=== PATIENT | female | born 1935 | race Caucasian/White ===

== ENCOUNTER → 2016-10-19 | Outpatient (CLI) | payer BC ==
[~2016-10-19] MED LIST: ACET-1101 PO; LEVO88TA22 PO; LOSA50TA6 PO; MULTTAB58 PO; NIFE30TA2 PO; RALO60TA30 PO; [UNRECOGNIZED DRUG - OTHER] PO
--- NOTE | 2016-10-19 12:46 | MAMMOGRAPHY REPORT ---
BILATERAL DIGITAL SCREENING MAMMOGRAM WITH CAD: 10/19/2016 CLINICAL HISTORY: Routine screening. Patient has no complaints. TECHNIQUE: Bilateral CC and MLO views were obtained. Current study was also evaluated with a Comput er Aided Detection (CAD) system. COMPARISON: Comparison is made to exams dated: 10/19/2015 mammogram, 10/08/2014 mammogram, 10/09/2013 ul trasound, 10/04/2013 mammogram, 10/03/2012 mammogram, and 09/28/2011 mammogram - [facility]. BREAST COMPOSITION: There are scattered areas of fibroglandular density in both breasts. FINDINGS: A linear scar marker overlies the 12:00 anterior right breast. There is asymmetry of the size of the breasts and evidence of prior surgery within the right breast. Mild vascular calcificat ions and punctate microcalcifications are stable bilaterally. No new suspicious mass, architectural distortion or cluster of microcalcifications is seen. IMPRESSION: ACR BI-RADS CATEGORY 1: NEGATIVE There is no mammographic evidence of malignancy. A 1 year screening mammogram is recommended. The p atient will receive written notification of the results. Approximately 10% of breast cancers are not detected with mammography. A negative mammographic repor t should not delay biopsy if a clinically suggestive mass is present. Myrna Roberson M.D. ay/:10/19/2016 11:16:38 Senior Product Development Engineer: Merari LOPEZ(Gomez)([place]), [facility] letter sent: Normal 1/2 BI-RADS Code: ACR BI-RADS Category 1: Negative
== END | disposition home or self-care (01) ==
LOC: C.MAMM 09:28
PROVIDERS: ATTEND Family Medicine
DX: Z12.31 Encounter for screening mammogram for malignant neoplasm of breast (principal)

== ENCOUNTER → 2016-12-21 | Outpatient (CLI) | payer BC | END | disposition home or self-care (01) | LOC: C.LABPVFM 11:52 | PROVIDERS: ATTEND Family Medicine | DX: R39.89 Other symptoms and signs involving the genitourinary system (principal) ==

== ENCOUNTER → 2017-03-15 | Outpatient (CLI) | payer BC ==
[~2017-03-15] MED LIST changes: +RALO60TA12 PO; -RALO60TA30 PO
[2017-03-15 18:02] LABS: BLOOD UREA NITROGEN 15 mg/dl (7-18)
== END | disposition home or self-care (01) ==
LOC: C.LABPVFM 14:13
PROVIDERS: ATTEND Psychiatry & Neurology Neurology
DX: Z00.00 Encounter for general adult medical examination without abnormal findings (principal)

== ENCOUNTER → 2017-03-22 | Outpatient (CLI) | payer BC ==
[~2017-03-22] MED LIST changes: +GADAVIST IV PRN
--- NOTE | 2017-03-22 10:36 | DIAGNOSTIC IMAGING REPORT ---
BRAIN COMBO FOR TRIGEMINAL CLINICAL HISTORY: 82 years-old Female presenting with trigeminal neuralgia, right-sided facial pain in the cheek for over one year, resistant to medications, history of dry eyes, no history of cancer or trauma. TECHNIQUE: Multisequence, multiplanar MR imaging of the brain was performed before and after the administration of intravenous contrast. IV contrast: 5.4 mL of Gadavist. COMPARISON: MRA from 11/17/2014. FINDINGS: Meckel's cave normal bilaterally. No mass lesion along the course of the trigeminal nerves. Normal internal auditory canals. Normal inner ear year structures. Proportional ventricular and sulcal prominence, likely age-related parenchymal volume loss. Periventricular and subcortical white matter T2/FLAIR hyperintensity, nonspecific but likely indicative of chronic small vessel ischemic change. No mass effect or midline shift. No restricted diffusion to suggest acute ischemia. No hemorrhage. No extra-axial fluid collection. T2 skull base flow voids preserved. No abnormal parenchymal enhancement. Intracranial vasculature grossly patent. Bone marrow signal intensity within the calvarium within normal limits. No asymmetry of the muscles of the face. IMPRESSION: No acute intracranial pathology. No abnormal enhancement. Normal trigeminal nerves. Electronically signed by: Clement Jacobo M.D. 03/22/2017 10:35 AM Dictated Date/Time: 03/22/2017 10:25 AM
== END | disposition home or self-care (01) ==
LOC: C.MRI 08:13
PROVIDERS: ATTEND Psychiatry & Neurology Neurology
DX: G50.0 Trigeminal neuralgia (principal)

== ENCOUNTER 2017-06-19 09:16 | Emergency (ER) | payer BC ==
[~2017-06-19] VITALS: Ht 152.4 cm; Wt 54.1 kg
[~2017-06-19 09:16] MED LIST changes: -GADAVIST IV PRN; -RALO60TA12 PO; +RALO60TA30 PO
[2017-06-19 09:17] VITALS: TEMP 36.9; Ht 152.4 cm; Wt 54.1 kg
[2017-06-19] MEDS ORDERED: ACETAMINOPHEN 500 MG TAB PO STA (09:40)
[2017-06-19] MEDS ORDERED: SODIUM CHLORIDE 0.9% 500ML 500 ML IV STA (09:40)
[2017-06-19] MEDS ORDERED: LIDOCAINE/EPINEPHRINE 1% 20 ML VIAL INFIL ONE (09:45)
[2017-06-19] MEDS ORDERED: DIPHTHERIA/TETANUS/PERTUSSIS 0.5 ML SYR/VIAL IM. ONE (09:45)
--- NOTE | 2017-06-19 09:52 | EMERGENCY ROOM VISIT NOTE ---
History Report prepared by Bartolome: Anthony Marcano Under the Supervision of: Dr. Bryan Andre M.D. First contact with patient: 09:35 Chief Complaint: FALL Stated Complaint: FALL TODAY History of Present Illness The patient is a 82 year old female who presents to the Emergency Room with complaints of a fall that occurred this morning, prior to arrival. Earlier today , the patient was walking down a couple of steps and stepped onto a landing. She opened the door to walk down more steps and the next thing she remembers is getting up off of the floor at the bottom of the steps. She states that she did not lose consciousness, but does not remember the fall. As soon as she got up, she noticed that her head was bleeding so she cleaned up the area before she told anyone about it. She is experiencing pain on the right side of her body, from her right shoulder down to her right foot. More specifically, her pain is in her right shoulder, back, elbow, wrist, and ankle. Her pain is exacerbated with movement. She denies any fevers, chest pain, shortness of breath, nausea, vomiting, diarrhea, abdominal pain, abnormal urinary symptoms, or dizziness. She notes that she has a headache. She takes a Baby Aspirin daily, but no other blood thinners. She is unsure if her Tetanus immunization is up to date. 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 Review of Systems See HPI for pertinent positives and negatives. A total of ten systems were reviewed and were otherwise negative. Past Medical & Surgical Medical Problems: (1) Sjogren's syndrome Family History Cancer Diabetes mellitus Heart disease Hypertension Social History Smoking Status: Never Smoker Smokeless Tobacco Use: No Alcohol Use: none Drug Use: none Marital Status: Housing Status: lives with significant other Occupation Status: retired Current/Historical Medications Scheduled Aspirin (Aspirin Ec), 81 MG PO DAILY Cholecalciferol (Vitamin D), 1,000 UNITS PO DAILY Levothyroxine Sodium (Synthroid), 88 MCG PO DAILY Losartan Potassium (Cozaar), 50 MG PO DAILY Multiple Vitamin (Multivitamin), 1 TAB PO DAILY Nifedipine (Procardia Xl Ext Rel), 30 MG PO DAILY Ocuvite Preservision (Ocuvite Preservision), 1 TAB PO DAILY [place]-3 Fatty Acids (Fish Oil), 1 CAP PO DAILY Allergies Coded Allergies: Sulfa Drugs (Verified Allergy, Mild, 06/19/17) Adhesives (Verified Allergy, Unknown, rash, 06/19/17) Physical Exam Vital Signs Date Time Temp Pulse Resp B/P (MAP) Pulse Ox O2 Delivery O2 Flow Rate FiO2 06/19/17 14:43 95 142/67 99 06/19/17 12:18 86 18 135/85 99 Room Air 06/19/17 11:03 98 Room Air 06/19/17 09:17 36.9 103 17 197/83 97 Room Air Physical Exam GENERAL: Awake, alert, well appearing, no distress HEAD: Normocephalic. There is a 10 cm linear laceration to the right temporal scalp. There is a 3 cm right frontal hematoma as well. No samuels sign. No raccoon eyes. EYES: Normal conjunctiva. PERRL. EARS: External ears normal. Right TM normal. Left TM normal. NOSE: Atraumatic OROPHARYNX: Lips, tongue, and mucosa unremarkable. No erythema or exudate. NECK: Supple. No nuchal rigidity. No tracheal deviation or JVD. No posterior midline tenderness. No step offs noted. RESPIRATORY: CTA bilaterally CARDIAC: Regular rate, normal rhythm. ABDOMEN: Inspection reveals no abnormalities. Soft, non distended. No tenderness to palpation. No hernias. BACK: No midline step offs or tenderness to palpation. Unremarkable. PELVIS: Stable to rock. SKIN: Normal. LYMPH: No adenopathy. MUSCULOSKELETAL: There is a 10 cm area of ecchymosis to the right shoulder. No gross deformities. Tenderness to the lateral humeral head and scapula on the right. Pain with ROM above 90 degrees. Mild tenderness to the lateral aspect of the right elbow and radial wrist. Distal PM's intact. Mild contusion to the dorsum of the right foot. Pain with palpation to the area. PM's intact. NEURO: GCS 15. Normal sensorium. No sensory or motor deficits noted. Medical Decision & Procedures ER Provider Diagnostic Interpretation: Radiology results as stated below per my review and radiologist interpretation: R WRIST MIN 3 VIEWS ROUTINE CLINICAL HISTORY: fall pain trauma. Pain. COMPARISON: None. DISCUSSION: Generalized degenerative change throughout the wrist. No well-defined fracture or dislocation. Degenerative change of the articular services throughout. No significant soft tissue calcification. Mild reactive osteophytic change. There is no evidence for soft tissue swelling. IMPRESSION: Moderate degenerative change. No acute bony abnormality. The above report was generated using voice recognition software. It may contain grammatical, syntax or spelling errors. Electronically signed by: Derek Cross M.D. 06/19/2017 12:13 PM Dictated Date/Time: 06/19/2017 12:12 PM R FOOT MIN 3 VIEWS ROUTINE, R SCAPULA, R SHOULDER MIN 2 VIEWS ROUTINE CLINICAL HISTORY: 82 years-old Female presenting with fall pain. TECHNIQUE: Frontal, oblique, and lateral views of the right foot were obtained. Internal rotation, external rotation, and Grashey views of the right shoulder were obtained. Frontal and lateral views of the right scapula were obtained. COMPARISON: None. FINDINGS: Right foot: No acute fracture or malalignment. Ossification at the base of the fifth metatarsal likely os peroneum. Accessory navicular also noted. Prominent enthesophytes at the insertion of the Achilles tendon and origin of the plantar fascia. No radiographic soft tissue abnormality. Right shoulder: No acute fracture or malalignment. Glenohumeral and acromioclavicular joints congruent. This was portion of the right hemithorax normal. Right scapula: No displaced fracture. No abnormal positioning. IMPRESSION: No acute osseous injury of the right foot, right shoulder, right scapula. Electronically signed by: Clement Jacobo M.D. 06/19/2017 12:26 PM Dictated Date/Time: 06/19/2017 12:12 PM R FOOT MIN 3 VIEWS ROUTINE, R SCAPULA, R SHOULDER MIN 2 VIEWS ROUTINE CLINICAL HISTORY: 82 years-old Female presenting with fall pain. TECHNIQUE: Frontal, oblique, and lateral views of the right foot were obtained. Internal rotation, external rotation, and Grashey views of the right shoulder were obtained. Frontal and lateral views of the right scapula were obtained. COMPARISON: None. FINDINGS: Right foot: No acute fracture or malalignment. Ossification at the base of the fifth metatarsal likely os peroneum. Accessory navicular also noted. Prominent enthesophytes at the insertion of the Achilles tendon and origin of the plantar fascia. No radiographic soft tissue abnormality. Right shoulder: No acute fracture or malalignment. Glenohumeral and acromioclavicular joints congruent. This was portion of the right hemithorax normal. Right scapula: No displaced fracture. No abnormal positioning. IMPRESSION: No acute osseous injury of the right foot, right shoulder, right scapula. Electronically signed by: Clement Jacobo M.D. 06/19/2017 12:26 PM Dictated Date/Time: 06/19/2017 12:12 PM PELVIS 1 OR 2 VIEW ROUTINE CLINICAL HISTORY: Pelvic pain status post trauma COMPARISON STUDY: None FINDINGS: No acute fractures are visualized. There is no symphysis diastases. There is no SI joint joint diastases. Degenerative changes are present within the lower lumbar spine. The bones are osteopenic. IMPRESSION: No fractures identified. Electronically signed by: Tye Sharif M.D. 06/19/2017 12:12 PM Dictated Date/Time: 06/19/2017 12:[address] HEAD WITHOUT CONTRAST (CT) CLINICAL HISTORY: Head pain status post trauma COMPARISON STUDY: No previous studies for comparison. TECHNIQUE: Axial CT of the brain is performed from the vertex to the skull base. IV contrast was not administered for this examination. A dose lowering technique was utilized adhering to the principles of ALARA. CT DOSE: 861.22 mGy.cm FINDINGS: No intra or extra-axial mass lesions are visualized. There is no CT evidence of acute cortical infarction. There is no evidence of midline shift. There is no acute hemorrhage. No calvarial fractures are visualized. There are patchy white matter hypodensities likely on a small vessel basis. There is no evidence of pathologic ventricular dilatation. There is no evidence of acute sinusitis. There is a right frontal scalp hematoma. IMPRESSION: Right frontal scalp hematoma. No acute intracranial findings. Electronically signed by: Tye Sharif M.D. 06/19/2017 10:58 AM Dictated Date/Time: 06/19/2017 10:57 AM R FOOT MIN 3 VIEWS ROUTINE, R SCAPULA, R SHOULDER MIN 2 VIEWS ROUTINE CLINICAL HISTORY: 82 years-old Female presenting with fall pain. TECHNIQUE: Frontal, oblique, and lateral views of the right foot were obtained. Internal rotation, external rotation, and Grashey views of the right shoulder were obtained. Frontal and lateral views of the right scapula were obtained. COMPARISON: None. FINDINGS: Right foot: No acute fracture or malalignment. Ossification at the base of the fifth metatarsal likely os peroneum. Accessory navicular also noted. Prominent enthesophytes at the insertion of the Achilles tendon and origin of the plantar fascia. No radiographic soft tissue abnormality. Right shoulder: No acute fracture or malalignment. Glenohumeral and acromioclavicular joints congruent. This was portion of the right hemithorax normal. Right scapula: No displaced fracture. No abnormal positioning. IMPRESSION: No acute osseous injury of the right foot, right shoulder, right scapula. Electronically signed by: Clement Jacobo M.D. 06/19/2017 12:26 PM Dictated Date/Time: 06/19/2017 12:12 PM R ELBOW MIN 3 VIEWS ROUTINE CLINICAL HISTORY: fall pain trauma. Pain. COMPARISON: None. DISCUSSION: No evidence for acute bony pathology. Study is negative for fracture. Findings of mild calcific medial and lateral epicondylitis. No abnormal contrast reaction. There is no evidence for soft tissue swelling. IMPRESSION: 1. No acute bony abnormality. 2. Mild calcific medial and lateral epicondylitis. The above report was generated using voice recognition software. It may contain grammatical, syntax or spelling errors. Electronically signed by: Derek Cross M.D. 06/19/2017 12:11 PM Dictated Date/Time: 06/19/2017 12:11 PM CHEST ONE VIEW PORTABLE CLINICAL HISTORY: fall pain trauma. Pain. COMPARISON STUDY: No previous studies for comparison. FINDINGS: The bones soft tissues and hemidiaphragms are normal. The cardiomediastinal silhouette is normal. The lungs are clear. The pulmonary vasculature is normal. IMPRESSION: Negative chest. The above report was generated using voice recognition software. It may contain grammatical, syntax or spelling errors. Electronically signed by: Derek Cross M.D. 06/19/2017 12:10 PM Dictated Date/Time: 06/19/2017 12:[address] OF THE CERVICAL SPINE CLINICAL HISTORY: Neck pain status post trauma COMPARISON STUDY: No previous studies for comparison. CT DOSE: TECHNIQUE: CT scan of the cervical spine was performed from the skull base to the thoracic inlet. Images are reviewed in the axial, sagittal, and coronal planes. IV contrast was not administered for this examination. A dose lowering technique was utilized adhering to the principles of ALARA. FINDINGS: The visualized portions of the lung apices reveal no evidence of pneumothorax. There is biapical pleural and parenchymal scarring. There is a 6 x 4 mm left apical pulmonary nodule. There is a small left mastoid effusion The prevertebral soft tissues are normal. No fractures or subluxations are visualized. There are multilevel degenerative changes IMPRESSION: 1. No evidence of acute fracture or traumatic subluxation 2. Biapical pleural-parenchymal scarring. 3. 6 x 4 mm solid left apical pulmonary nodule. In a low risk patient, no further follow-up is indicated. In a high risk patient, a 12 month follow-up CT scan is optional. Please refer to below summary of Fleischner criteria recommendations for follow-up of incidental CT nodules (Arely De La O, Guidelines for management of small pulmonary nodules detected on CT scans: A statement from the Fleischner Society, Radiology 237: [phone].) SOLID NODULES Solitary nodule size: <6 mm * low risk patients: no follow-up needed * high risk patients: optional CT at 12 months Solitary nodule size: 6-8 mm * low risk patients: follow-up at 6-12 months, then consider further follow-up at 18-24 months * high risk patients: initial follow-up CT at 6-12 months and then at 18-24 months if no change Solitary nodule size: >8 mm * either low or high risk patients - consider follow-up CT at 3 months, and/or CT-PET, and/or biopsy Multiple nodules size: <6 mm * low risk patients: no routine follow-up * high risk patients: optional CT at 12 months Multiple nodules size: 6-8 mm * low risk patients: follow-up at 3-6 months, then consider further follow-up at 18-24 months * high risk patients: follow-up at 3-6 months, then at 18-24 months if no change Multiple nodules size: >8 mm * low risk patients: follow-up at 3-6 months, then consider further follow-up at 18-24 months * high risk patients: follow-up at 3-6 months, then at 18-24 months if no change Note: newly detected indeterminate nodule in persons 35 years of age or older. * low risk patients: minimal or absent history of smoking and/or other known risk factors * high risk patients: history of smoking or of other known risk factors (e.g. first degree relative with lung cancer, or exposure to asbestos, radon, uranium) * if a nodule up to 8 mm is partly solid or is ground glass further follow-up is required after 24 months to exclude possible slow growing adenocarcinoma (MATTEO) SUBSOLID NODULES Solitary pure ground-glass nodule * nodule size <6 mm - no CT follow-up required * nodule size >=6 mm - follow-up CT at 6-12 months, then every 2 years until 5 years Solitary part-solid nodule * nodule size <6 mm - no CT follow-up required * nodule size >=6 mm - follow-up CT at 3-6 months. If unchanged, and solid component remains <6 mm, then annual follow-up for 5 years Multiple subsolid nodules * nodule size <6 mm - follow-up CT at 3-6 months, consider further follow-up at 2 and 4 years if stable * nodule size >=6 mm - follow-up CT at 3-6 months, subsequent management based on the most suspicious nodule(s) Electronically signed by: Tye Sharif M.D. 06/19/2017 11:02 AM Dictated Date/Time: 06/19/2017 10:58 AM Laboratory Results 06/19/17 10:35 Red Blood Count 3.97, Mean Corpuscular Volume 93.2, Mean Corpuscular Hemoglobin 31.2, Mean Corpuscular Hemoglobin Concent 33.5, Mean Platelet Volume 9.1, Neutrophils (%) (Auto) 75.4, Lymphocytes (%) (Auto) 17.5, Monocytes (%) (Auto) 5.9, Eosinophils (%) (Auto) 0.6, Basophils (%) (Auto) 0.2, Neutrophils # (Auto) 9.41, Lymphocytes # (Auto) 2.19, Monocytes # (Auto) 0.74, Eosinophils # (Auto) 0.07, Basophils # (Auto) 0.02 06/19/17 10:35 Test 06/19/17 10:35 06/19/17 11:00 White Blood Count 12.48 K/uL (4.8-10.8) Red Blood Count 3.97 M/uL (4.2-5.4) Hemoglobin 12.4 g/dL (12.0-16.0) Hematocrit 37.0 % (37-47) Mean Corpuscular Volume 93.2 fL (80-100) Mean Corpuscular Hemoglobin 31.2 pg (25-34) Mean Corpuscular Hemoglobin Concent 33.5 g/dl (32-36) Platelet Count 292 K/uL (130-400) Mean Platelet Volume 9.1 fL (7.4-10.4) Neutrophils (%) (Auto) 75.4 % Lymphocytes (%) (Auto) 17.5 % Monocytes (%) (Auto) 5.9 % Eosinophils (%) (Auto) 0.6 % Basophils (%) (Auto) 0.2 % Neutrophils # (Auto) 9.41 K/uL (1.4-6.5) Lymphocytes # (Auto) 2.19 K/uL (1.2-3.4) Monocytes # (Auto) 0.74 K/uL (0.11-0.59) Eosinophils # (Auto) 0.07 K/uL (0-0.5) Basophils # (Auto) 0.02 K/uL (0-0.2) RDW Standard Deviation 45.2 fL (36.4-46.3) RDW Coefficient of Variation 13.2 % (11.5-14.5) Immature Granulocyte % (Auto) 0.4 % Immature Granulocyte # (Auto) 0.05 K/uL (0.00-0.02) Anion Gap 8.0 mmol/L (3-11) Est Creatinine Clear Calc Drug Dose 33.9 ml/min Estimated GFR () 67.2 Estimated GFR (Non- 58.0 BUN/Creatinine Ratio 17.1 (10-20) Calcium Level 9.5 mg/dl (8.5-10.1) Total Bilirubin 0.3 mg/dl (0.2-1) Direct Bilirubin < 0.1 mg/dl (0-0.2) Aspartate Amino Transf (AST/SGOT) 22 U/L (15-37) Alanine Aminotransferase (ALT/SGPT) 20 U/L (12-78) Alkaline Phosphatase 68 U/L (45-117) Troponin I < 0.015 ng/ml (0-0.045) Total Protein 9.4 gm/dl (6.4-8.2) Albumin 3.6 gm/dl (3.4-5.0) Lipase 167 U/L (73-393) Urine Color YELLOW Urine Appearance CLEAR (CLEAR) Urine pH 7.0 (4.5-7.5) Urine Specific [place] 1.011 (1.000-1.030) Urine Protein TRACE (NEG) Urine Glucose (UA) NEG (NEG) Urine Ketones NEG (NEG) Urine Occult Blood NEG (NEG) Urine Nitrite NEG (NEG) Urine Bilirubin NEG (NEG) Urine Urobilinogen NEG (NEG) Urine Leukocyte Esterase SMALL (NEG) Urine WBC (Auto) 1-5 /hpf (0-5) Urine RBC (Auto) 0-4 /hpf (0-4) Urine Hyaline Casts (Auto) 1-5 /lpf (0-5) Urine Epithelial Cells (Auto) >30 /lpf (0-5) Urine Bacteria (Auto) NEG (NEG) Laboratory results reviewed by me Medications Administered Medications (Trade) Dose Ordered Sig/Ajay Route Start Time Stop Time Status Last Admin Dose Admin Acetaminophen (Tylenol Tab) 1,000 mg NOW STAT PO 06/19/17 09:40 06/19/17 09:52 DC 06/19/17 10:02 1,000 MG Lidocaine/ Epinephrine (Xylocaine/Epine 1% Inj) 20 ml ONE ONCE INFIL 06/19/17 09:45 06/19/17 09:53 DC 06/19/17 10:03 20 ML Diphtheria/ Pertussis/Tetanus Vacc (Adacel Inj) 0.5 ml ONCE ONCE IM. 06/19/17 09:45 06/19/17 09:53 DC 06/19/17 10:02 0.5 ML Procedure Location: Right temporal scalp Total length: 10 cm Complexity: Simple, linear Verbal consent was obtained after the risks and benefits were explained, including but not limited to bleeding, scarring, infection, pain, and bone/joint /nerve damage. At this time, the risks of the procedure are less than the risks of NOT performing the procedure. A time out was taken and the correct patient and site identified. The skin was prepped with betadine. The target area was anesthetized with 1 ml of 1% lidocaine with epinephrine. Copious irrigation was performed using normal saline. The skin was re-prepped with betadine and a sterile field set. The wound was explored for foreign bodies and none found. Examination revealed no injury to deep structures such as tendons, bone, or significant blood vessels. Debridement was not performed. The wound edges were approximated using 6 timmy. Hemostasis and excellent approximation was achieved. Antibacterial ointment and a sterile dressing applied. Detailed wound care instructions and signs and symptoms of infection reviewed with the patient. No complications and the patient tolerated the procedure well. ECG Indication: other (Trauma) Rate (beats per minute): 84 Rhythm: normal sinus Findings: no acute ischemic change, other (Normal axis) ED Course 0935: The patient was evaluated in room B10. A complete history and physical exam was performed. 1352: I performed a laceration repair at this time. Please see the procedure notes for further information. 1423: I reevaluated the patient. Discussed results and discharge instructions: She verbalized understanding and agreement. The patient is ready for discharge. Medical Decision I reviewed the patient's past medical history, medications, and the nursing notes as described above. Etiologies such as fracture, dislocation, intra-abdominal, pneumothorax, intrathoracic , intracranial, neurologic, as well as other traumatic pathologies were entertained. The patient is a 82-year-old woman with a medical history of hypertension and Sjogren syndrome who presents to emergency department after having a fall downstairs per history of present illness. Arrival the patient is mildly uncomfortable but in no acute distress, afebrile with stable vital signs. The patient has a 3 cm hematoma to the right forehead as well as a 10 cm laceration to the right temporal scalp. She has mild tenderness to the right shoulder elbow wrist and foot ever has FROM. CT head and C-spine unremarkable. Plain films of the right scapula, shoulder, elbow, wrist, foot negative for acute fractures. Chest x-ray and pelvic x-ray also negative. Labs unremarkable. EKG unremarkable. Laceration was stapled per procedure note. Tetanus updated. Findings and plan for follow-up reviewed with patient. Patient agreeable and d /c'd per discharge instructions. Medication Reconcilliation Current Medication List: was personally reviewed by me Blood Pressure Screening Patient's blood pressure: Elevated blood pressure Blood pressure disposition: Elevated BP felt to be situational Impression Primary Impression: Scalp laceration Additional Impressions: Hematoma Fall Scribe Attestation The scribe's documentation has been prepared under my direction and personally reviewed by me in its entirety. I confirm that the note above accurately reflects all work, treatment, procedures, and medical decision making performed by me. Departure Information Dispostion Home / Self-Care Forms HOME CARE DOCUMENTATION FORM, IMPORTANT VISIT INFORMATION Patient Instructions ED Fall Uncertain Cause, ED Hematoma, ED Laceration Scalp [facility] Stap[facility] Additional Instructions Please follow up with your primary care physician in the next 10-14 days for re- evaluation and staple removal. Otherwise, your exam, EKG, xrays, CT scan of your head and neck, and lab results did not show signs of an emergent condition at this time. Acetaminophen for pain as needed. Return to the emergency department for worsening symptoms as described in the accompanying instructions. Problem Qualifiers
[2017-06-19] MEDS ORDERED: OMEGCAP2 PO (10:42)
[2017-06-19] MEDS ORDERED: CHOL100010 PO (10:42)
[2017-06-19] MEDS ORDERED: MULT-190 PO (10:42)
[2017-06-19] MEDS ORDERED: ASPI81TA28 PO (10:42)
[2017-06-19] MEDS ORDERED: LEVO88TA PO (10:43)
--- NOTE | 2017-06-19 10:59 | DIAGNOSTIC IMAGING REPORT ---
CT HEAD WITHOUT CONTRAST (CT) CLINICAL HISTORY: Head pain status post trauma COMPARISON STUDY: No previous studies for comparison. TECHNIQUE: Axial CT of the brain is performed from the vertex to the skull base. IV contrast was not administered for this examination. A dose lowering technique was utilized adhering to the principles of ALARA. CT DOSE: 861.22 mGy.cm FINDINGS: No intra or extra-axial mass lesions are visualized. There is no CT evidence of acute cortical infarction. There is no evidence of midline shift. There is no acute hemorrhage. No calvarial fractures are visualized. There are patchy white matter hypodensities likely on a small vessel basis. There is no evidence of pathologic ventricular dilatation. There is no evidence of acute sinusitis. There is a right frontal scalp hematoma. IMPRESSION: Right frontal scalp hematoma. No acute intracranial findings. Electronically signed by: Tye Sharif M.D. 06/19/2017 10:58 AM Dictated Date/Time: 06/19/2017 10:57 AM
[2017-06-19 11:01] LABS: BASO % 0.2 %; BASO ABS # 0.02 K/uL (0-0.2); COMPLETE YES; EOS % 0.6 %; IG% 0.4 %; LYMPH % 17.5 %; LYMPH ABS # 2.19 K/uL (1.2-3.4); MEAN CELL VOLUME 93.2 fL (80-100); MEAN CORPUSCULAR HEMOGLOBIN 31.2 pg (25-34); MEAN CORPUSCULAR HGB CONC 33.5 g/dl (32-36); MEAN PLATELET VOLUME 9.1 fL (7.4-10.4); MONO % 5.9 %; NEUT % 75.4 %; PLATELET COUNT 292 K/uL (130-400); RED BLOOD COUNT 3.97 M/uL (4.2-5.4); WHITE BLOOD COUNT 12.48 K/uL (4.8-10.8)
[2017-06-19 11:03] VITALS: O2SAT 98
--- NOTE | 2017-06-19 11:03 | DIAGNOSTIC IMAGING REPORT ---
CT OF THE CERVICAL SPINE CLINICAL HISTORY: Neck pain status post trauma COMPARISON STUDY: No previous studies for comparison. CT DOSE: TECHNIQUE: CT scan of the cervical spine was performed from the skull base to the thoracic inlet. Images are reviewed in the axial, sagittal, and coronal planes. IV contrast was not administered for this examination. A dose lowering technique was utilized adhering to the principles of ALARA. FINDINGS: The visualized portions of the lung apices reveal no evidence of pneumothorax. There is biapical pleural and parenchymal scarring. There is a 6 x 4 mm left apical pulmonary nodule. There is a small left mastoid effusion The prevertebral soft tissues are normal. No fractures or subluxations are visualized. There are multilevel degenerative changes IMPRESSION: 1. No evidence of acute fracture or traumatic subluxation 2. Biapical pleural-parenchymal scarring. 3. 6 x 4 mm solid left apical pulmonary nodule. In a low risk patient, no further follow-up is indicated. In a high risk patient, a 12 month follow-up CT scan is optional. Please refer to below summary of Fleischner criteria recommendations for follow-up of incidental CT nodules (Areyl De La O, Guidelines for management of small pulmonary nodules detected on CT scans: A statement from the Fleischner Society, Radiology 237: [phone].) SOLID NODULES Solitary nodule size: <6 mm * low risk patients: no follow-up needed * high risk patients: optional CT at 12 months Solitary nodule size: 6-8 mm * low risk patients: follow-up at 6-12 months, then consider further follow-up at 18-24 months * high risk patients: initial follow-up CT at 6-12 months and then at 18-24 months if no change Solitary nodule size: >8 mm * either low or high risk patients - consider follow-up CT at 3 months, and/or CT-PET, and/or biopsy Multiple nodules size: <6 mm * low risk patients: no routine follow-up * high risk patients: optional CT at 12 months Multiple nodules size: 6-8 mm * low risk patients: follow-up at 3-6 months, then consider further follow-up at 18-24 months * high risk patients: follow-up at 3-6 months, then at 18-24 months if no change Multiple nodules size: >8 mm * low risk patients: follow-up at 3-6 months, then consider further follow-up at 18-24 months * high risk patients: follow-up at 3-6 months, then at 18-24 months if no change Note: newly detected indeterminate nodule in persons 35 years of age or older. * low risk patients: minimal or absent history of smoking and/or other known risk factors * high risk patients: history of smoking or of other known risk factors (e.g. first degree relative with lung cancer, or exposure to asbestos, radon, uranium) * if a nodule up to 8 mm is partly solid or is ground glass further follow-up is required after 24 months to exclude possible slow growing adenocarcinoma (MATTEO) SUBSOLID NODULES Solitary pure ground-glass nodule * nodule size <6 mm - no CT follow-up required * nodule size >=6 mm - follow-up CT at 6-12 months, then every 2 years until 5 years Solitary part-solid nodule * nodule size <6 mm - no CT follow-up required * nodule size >=6 mm - follow-up CT at 3-6 months. If unchanged, and solid component remains <6 mm, then annual follow-up for 5 years Multiple subsolid nodules * nodule size <6 mm - follow-up CT at 3-6 months, consider further follow-up at 2 and 4 years if stable * nodule size >=6 mm - follow-up CT at 3-6 months, subsequent management based on the most suspicious nodule(s) Electronically signed by: Tye Sharif M.D. 06/19/2017 11:02 AM Dictated Date/Time: 06/19/2017 10:58 AM
[2017-06-19 11:16] LABS: ALT/SGPT 20 U/L (12-78); BLOOD UREA NITROGEN 16 mg/dl (7-18); BUN/CREATININE RATIO 17.1 (10-20); CALCIUM 9.5 mg/dl (8.5-10.1); CARBON DIOXIDE 26 mmol/L (21-32); CHLORIDE 98 mmol/L (98-107); CREATININE 0.92 mg/dl (0.60-1.20); GLUCOSE 103 mg/dl (70-99); POTASSIUM 4.2 mmol/L (3.5-5.1); SODIUM 132 mmol/L (136-145)
[2017-06-19 11:21] LABS: ALKALINE PHOSPHATASE 68 U/L (45-117); AST/SGOT 22 U/L (15-37)
[2017-06-19 11:28] LABS: URINE APPEARANCE CLEAR (CLEAR); URINE BILIRUBIN NEG (NEG); URINE COLOR YELLOW; URINE EPITHELIAL CELL AUTO >30 /lpf (0-5); URINE NITRITE NEG (NEG); URINE SPECIFIC GRAVITY 1.011 (1.000-1.030); UROBILINOGEN NEG (NEG); ZZUR CULT IF INDIC CLEAN CATCH NO
[2017-06-19 11:29] LABS: MANUAL MICROSCOPIC REQUIRED? NO; REVIEW REQ? NO
--- NOTE | 2017-06-19 12:12 | DIAGNOSTIC IMAGING REPORT ---
CHEST ONE VIEW PORTABLE CLINICAL HISTORY: fall pain trauma. Pain. COMPARISON STUDY: No previous studies for comparison. FINDINGS: The bones soft tissues and hemidiaphragms are normal. The cardiomediastinal silhouette is normal. The lungs are clear. The pulmonary vasculature is normal. IMPRESSION: Negative chest. The above report was generated using voice recognition software. It may contain grammatical, syntax or spelling errors. Electronically signed by: Derek Cross M.D. 06/19/2017 12:10 PM Dictated Date/Time: 06/19/2017 12:10 PM
--- NOTE | 2017-06-19 12:13 | DIAGNOSTIC IMAGING REPORT ---
R ELBOW MIN 3 VIEWS ROUTINE CLINICAL HISTORY: fall pain trauma. Pain. COMPARISON: None. DISCUSSION: No evidence for acute bony pathology. Study is negative for fracture. Findings of mild calcific medial and lateral epicondylitis. No abnormal contrast reaction. There is no evidence for soft tissue swelling. IMPRESSION: 1. No acute bony abnormality. 2. Mild calcific medial and lateral epicondylitis. The above report was generated using voice recognition software. It may contain grammatical, syntax or spelling errors. Electronically signed by: Derek Cross M.D. 06/19/2017 12:11 PM Dictated Date/Time: 06/19/2017 12:11 PM
--- NOTE | 2017-06-19 12:13 | DIAGNOSTIC IMAGING REPORT ---
PELVIS 1 OR 2 VIEW ROUTINE CLINICAL HISTORY: Pelvic pain status post trauma COMPARISON STUDY: None FINDINGS: No acute fractures are visualized. There is no symphysis diastases. There is no SI joint joint diastases. Degenerative changes are present within the lower lumbar spine. The bones are osteopenic. IMPRESSION: No fractures identified. Electronically signed by: Tye Sharif M.D. 06/19/2017 12:12 PM Dictated Date/Time: 06/19/2017 12:12 PM
--- NOTE | 2017-06-19 12:14 | DIAGNOSTIC IMAGING REPORT ---
R WRIST MIN 3 VIEWS ROUTINE CLINICAL HISTORY: fall pain trauma. Pain. COMPARISON: None. DISCUSSION: Generalized degenerative change throughout the wrist. No well-defined fracture or dislocation. Degenerative change of the articular services throughout. No significant soft tissue calcification. Mild reactive osteophytic change. There is no evidence for soft tissue swelling. IMPRESSION: Moderate degenerative change. No acute bony abnormality. The above report was generated using voice recognition software. It may contain grammatical, syntax or spelling errors. Electronically signed by: Derek Cross M.D. 06/19/2017 12:13 PM Dictated Date/Time: 06/19/2017 12:12 PM
--- NOTE | 2017-06-19 12:28 | DIAGNOSTIC IMAGING REPORT ---
R FOOT MIN 3 VIEWS ROUTINE, R SCAPULA, R SHOULDER MIN 2 VIEWS ROUTINE CLINICAL HISTORY: 82 years-old Female presenting with fall pain. TECHNIQUE: Frontal, oblique, and lateral views of the right foot were obtained. Internal rotation, external rotation, and Grashey views of the right shoulder were obtained. Frontal and lateral views of the right scapula were obtained. COMPARISON: None. FINDINGS: Right foot: No acute fracture or malalignment. Ossification at the base of the fifth metatarsal likely os peroneum. Accessory navicular also noted. Prominent enthesophytes at the insertion of the Achilles tendon and origin of the plantar fascia. No radiographic soft tissue abnormality. Right shoulder: No acute fracture or malalignment. Glenohumeral and acromioclavicular joints congruent. This was portion of the right hemithorax normal. Right scapula: No displaced fracture. No abnormal positioning. IMPRESSION: No acute osseous injury of the right foot, right shoulder, right scapula. Electronically signed by: Clement Jacobo M.D. 06/19/2017 12:26 PM Dictated Date/Time: 06/19/2017 12:12 PM
[2017-06-19 14:43] VITALS: BP 142/67; PULSE 95; O2SAT 99
== END 2017-06-19 14:44 | disposition home or self-care (01) ==
LOC: C.EDB 09:17
DX: S01.01XA Laceration without foreign body of scalp, initial encounter (principal); M25.511 Pain in right shoulder; M25.521 Pain in right elbow; M25.531 Pain in right wrist; M25.571 Pain in right ankle and joints of right foot; Z23 Encounter for immunization; W10.9XXA Fall (on) (from) unspecified stairs and steps, initial encounter; I10 Essential (primary) hypertension; M35.00 Sjogren syndrome, unspecified; Z79.82 Long term (current) use of aspirin; Z80.9 Family history of malignant neoplasm, unspecified; Z83.3 Family history of diabetes mellitus; Z82.49 Family history of ischemic heart disease and other diseases of the circulatory system

== ENCOUNTER → 2017-10-20 | Outpatient (CLI) | payer BC ==
[~2017-10-20] MED LIST changes: -ACET-1101 PO; +ASPI81TA28 PO; +CHOL100010 PO; +LEVO88TA PO; -LEVO88TA22 PO; +MULT-190 PO; +OMEGCAP2 PO; -RALO60TA30 PO; -[UNRECOGNIZED DRUG - OTHER] PO
--- NOTE | 2017-10-23 07:45 | MAMMOGRAPHY REPORT ---
BILATERAL DIGITAL SCREENING MAMMOGRAM TOMOSYNTHESIS WITH CAD: 10/20/2017 CLINICAL HISTORY: Routine screening. The patient has no current complaints. TECHNIQUE: Breast tomosynthesis in addition to standard 2D mammography was performed. Current study was also evaluated with a Computer Aided Detection (CAD) system. COMPARISON: Comparison is made to exams dated: 10/19/2016 mammogram, 10/19/2015 mammogram, 10/08/2014 ma mmogram, 10/09/2013 ultrasound, 10/09/2013 mammogram, and 10/04/2013 mammogram - [facility]. BREAST COMPOSITION: There are scattered areas of fibroglandular density in both breasts. FINDINGS: No suspicious masses, calcifications, or areas of architectural distortion are noted in ei ther breast. There has been no significant interval change compared to prior exams. There are stable postsurgical changes in the right breast. Bilateral benign-appearing calcifications are not signifi cantly changed. IMPRESSION: ACR BI-RADS CATEGORY 2: BENIGN There is no mammographic evidence of malignancy. A 1 year screening mammogram is recommended. The pa tient will receive written notification of the results. Approximately 10% of breast cancers are not detected with mammography. A negative mammographic report should not delay biopsy if a clinically suggestive mass is present. Sabiha Ha M.D. ah/:10/20/2017 13:05:25 Cable Assembler: Iris LOPEZ(Gomez)([place]), [facility] letter sent: Normal 1/2 BI-RADS Code: ACR BI-RADS Category 2: Benign
== END | disposition home or self-care (01) ==
LOC: C.MAMM 09:44
PROVIDERS: ATTEND Nurse Practitioner
DX: Z12.31 Encounter for screening mammogram for malignant neoplasm of breast (principal)

== ENCOUNTER → 2017-10-26 | Outpatient (CLI) | payer BC ==
[2017-10-26 13:12] LABS: BLOOD UREA NITROGEN 21 mg/dl (7-18); CALCIUM 9.5 mg/dl (8.5-10.1); CARBON DIOXIDE 29 mmol/L (21-32); CREATININE 1.11 mg/dl (0.60-1.20); GLUCOSE 99 mg/dl (70-99); POTASSIUM 4.3 mmol/L (3.5-5.1); SODIUM 131 mmol/L (136-145)
== END | disposition home or self-care (01) ==
LOC: C.LABPVFM 09:38
PROVIDERS: ATTEND Nurse Practitioner
DX: E03.9 Hypothyroidism, unspecified (principal); I10 Essential (primary) hypertension; R53.1 Weakness

== ENCOUNTER → 2018-01-25 | Outpatient (CLI) | payer BC | END | disposition home or self-care (01) | LOC: C.RDSM 10:44 | PROVIDERS: ATTEND Orthopaedic Surgery Sports Medicine | DX: M25.552 Pain in left hip (principal) ==

== ENCOUNTER 2019-06-20 23:13 | Inpatient (IN) ==
[2019-06-20] MEDS ORDERED: SODIUM CHLORIDE 0.9% 500 ML IV ONE (23:24)
--- NOTE | 2019-06-20 23:28 | Emergency Department Note ---
ED Visit Note Staff note: I have reviewed the Patients chart and have discussed this case with my PA. I generally agree with the ED note and findings. .
--- NOTE | 2019-06-20 23:36 | Emergency Department Note ---
Entered by [id number] acting as a scribe for Duarte Tena DO History of Present Illness General Chief complaint: Fall Stated complaint: Fall Source: patient History of Present Illness Onset (ago): hour(s) (just prior to arrival) Location: buttocks Pain Consistency: + other (episode) Quality: + other (fall) Associated symptoms: + other (negative loss of consciousness; negative numbness or weakness in one leg or the other; negative urinary symptoms); no chest pain, no cough, no nausea/vomiting and no shortness of breath The patient is a 84 year old female with PMHx of HNT, Hypothyroidism, and Trigeminal neuralgia who presents to the Emergency Room with complaints of an episode of a fall that occurred just prior to arrival. The patient states that she was walking to the table in her kitchen when she became weak and fell onto her buttocks. The patient denies hitting her head and denies loss of consciousness at this time. The patient denies any current pain. She states that she was in the ED earlier this afternoon for a fall where she tripped and hit h er head and was discharged 2.5 hours prior to arrival. The patient denies chest pain, shortness of breath, nausea, vomiting, weakness or numbness in one leg or the other, urinary symptoms, and cough. Home Medications Home Medications Medication Instructions Recorded Confirmed Type PreserVision AREDS 1 tab PO QAM 10/12/18 06/21/19 History aspirin 81 mg PO QAM 10/12/18 06/21/19 History cholecalciferol (vitamin D3) 1,000 unit PO QAM 10/12/18 06/21/19 History [Vitamin D3] levothyroxine 88 mcg PO QAM 10/12/18 06/21/19 History omega-3 acid ethyl esters 1 gram 1 cap PO DAILY cap 02/15/19 06/21/19 History capsule buspirone 5 mg tablet 5 mg PO BID PRN #60 tab 04/16/19 06/21/19 Rx lorazepam 0.5 mg tablet 0.5 mg PO HS PRN #30 tab 04/26/19 06/21/19 History nifedipine 30 mg tablet,extended 60 mg PO QPM #90 tab 05/24/19 06/21/19 Rx release 24 hr carbamazepine 100 mg PO BID 06/20/19 06/21/19 History losartan 75 mg PO DAILY 06/21/19 06/21/19 History hlnekrwb-faf-BB-lycopen-lutein 1 tab PO DAILY 06/21/19 06/21/19 History [Centrum Silver] Allergies Allergy/AdvReac Type Severity Reaction Status Date / Time adhesive Allergy Mild rash Verified 06/21/19 00:21 enalaprilat [From Vasotec] Allergy Unknown Verified 06/21/19 00:21 Sulfa (Sulfonamide AdvReac Mild Rash Verified 06/21/19 00:21 Antibiotics) atorvastatin AdvReac Unconscious Verified 06/21/19 00:21 Past Med/Surg History Medical History Aortic valve sclerosis (Chronic) Arteriosclerosis of carotid artery (Chronic) Benign neoplasm of colon Cardiac murmur Cervical lymphadenopathy Chronic hoarseness (Chronic) Claustrophobia GERD (gastroesophageal reflux disease) Hyperlipidemia HX OF Hypertension Hypertension (Chronic) Hypothyroidism Hypothyroidism (Chronic) IBS (irritable bowel syndrome) Increased urinary frequency (Chronic) Macular degeneration Memory changes (Acute) 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) Mixed hyperlipidemia Monoclonal gammopathy of undetermined significance (Chronic) Osteoarthritis Osteoporosis (Chronic) Pulmonary nodule (Chronic) Rotator cuff tear, left (Resolved) Sensorineural hearing loss (SNHL) of both ears Sensorineural hearing loss (SNHL) of left ear with restricted hearing of right ear (Chronic) Situational anxiety (Chronic) Sjogren's syndrome (Chronic) Spinal stenosis Trigeminal neuralgia RIGHT Trigeminal neuralgia (Chronic) Unsteady gait Vocal cord paralysis (Chronic) Surgical History History of adenoidectomy History of bladder surgery BLADDER TACK History of colonoscopy History of hysterectomy (Inactive) History of lumpectomy (Inactive) History of throat surgery THURNWALDT CYST BENIGN History of tonsillectomy History of tooth extraction History of total abdominal hysterectomy and bilateral salpingo-oophorectomy Family History Son Family history of diabetes mellitus Father Cancer Sister Cancer Breast cancer Mother Myocardial infarction Social History Preferred Language: Syriac Communication Ability: Effective Crystal Evaluator Required: No Beliefs That Will Affect Care: None marital status: Current Living Situation: Spouse current occupational status: retired Feels Safe at Home: Yes Smoking Status: Never smoker Second Hand Exposure: No ; Hx Alcohol Use: Yes Alcohol type: wine Hx Substance Use: No caffeine: Yes Dental Care, Regularly: No Physical Activity Frequency: Does not Exercise Seatbelt Use: always Sunscreen Use: Yes Review of Systems See HPI for pertinent positives & negatives. and A total of 10 systems reviewed and were otherwise negative Physical Exam Vital Signs Vital Signs - 24 hr 06/20/19 23:18 06/20/19 23:22 06/20/19 23:30 Temperature 36.5 C Temperature Source Oral Pulse Rate 83 79 78 Pulse Rate from SpO2 Sensor 81 79 Respiratory Rate 20 15 17 Respiratory Effort / Characteristics Non-Labored Spontaneous Respiratory Depth Normal Respiratory Pattern Regular Blood Pressure 197/88 H Blood Pressure Mean 124 Blood Pressure Position Lying Pulse Oximetry 97 100 98 Oxygen Delivery Method Room Air Room Air Sepsis Recent Fever Within 48 Hours No Sepsis New/Unexplained Change in Mental Status No Sepsis Action Taken by Nursing No Action Required 06/20/19 23:48 06/21/19 00:00 06/21/19 00:01 Temperature Temperature Source Pulse Rate 84 76 75 Pulse Rate from SpO2 Sensor 78 76 75 Respiratory Rate 17 14 17 Respiratory Effort / Characteristics Respiratory Depth Respiratory Pattern Blood Pressure 177/90 H 170/64 H Blood Pressure Mean 114 115 Blood Pressure Position Pulse Oximetry 99 98 99 Oxygen Delivery Method Sepsis Recent Fever Within 48 Hours Sepsis New/Unexplained Change in Mental Status Sepsis Action Taken by Nursing 06/21/19 00:30 06/21/19 00:31 06/21/19 01:00 Temperature Temperature Source Pulse Rate 74 74 70 Pulse Rate from SpO2 Sensor 74 72 69 Respiratory Rate 19 16 12 Respiratory Effort / Characteristics Respiratory Depth Respiratory Pattern Blood Pressure 171/73 H 134/62 Blood Pressure Mean 92 86 Blood Pressure Position Pulse Oximetry 98 98 97 Oxygen Delivery Method Sepsis Recent Fever Within 48 Hours Sepsis New/Unexplained Change in Mental Status Sepsis Action Taken by Nursing 06/21/19 01:30 06/21/19 01:31 06/21/19 02:00 Temperature Temperature Source Pulse Rate 74 75 75 Pulse Rate from SpO2 Sensor 74 74 75 Respiratory Rate 12 15 22 Respiratory Effort / Characteristics Respiratory Depth Respiratory Pattern Blood Pressure 143/76 H 159/89 H Blood Pressure Mean 81 117 Blood Pressure Position Pulse Oximetry 98 98 97 Oxygen Delivery Method Sepsis Recent Fever Within 48 Hours Sepsis New/Unexplained Change in Mental Status Sepsis Action Taken by Nursing 06/21/19 02:01 Temperature Temperature Source Pulse Rate 75 Pulse Rate from SpO2 Sensor 77 Respiratory Rate 17 Respiratory Effort / Characteristics Respiratory Depth Respiratory Pattern Blood Pressure Blood Pressure Mean Blood Pressure Position Pulse Oximetry 97 Oxygen Delivery Method Sepsis Recent Fever Within 48 Hours Sepsis New/Unexplained Change in Mental Status Sepsis Action Taken by Nursing GENERAL: Sitting up in bed, alert, well appearing, well nourished, no distress, non-toxic HEAD: normal cephalic, atraumatic FACE: Bruising along the right frontal forehead tracking around the right orbit with sutures in place. EYE EXAM: normal conjunctiva, PERRL and EOM's grossly intact OROPHARYNX: no exudate, no erythema, lips, buccal mucosa, and tongue normal and mucous membranes are moist EARS: TMs clear b/l NECK: supple, no nuchal rigidity, no adenopathy, non-tender CHEST: stable to compression anteriorly and posteriorly LUNGS: clear to auscultation. Normal chest wall mechanics HEART: no murmurs, S1 normal and S2 normal ABDOMEN: abdomen soft, non-tender, normo-active bowel sounds, no masses, no rebound or guarding. PELVIS: stable to compression anteriorly and posteriorly BACK: Back is symmetrical on inspection and there is no deformity, no midline tenderness, no CVA tenderness. UPPER EXTREMITIES: full active and passive range of motion of all joints without tenderness to palpation LOWER EXTREMITIES: full active and passive range of motion of all joints without tenderness to palpation NEURO EXAM: Normal sensorium, cranial nerves II-XII intact, normal speech, no weakness of arms, no weakness of legs. No drift. Finger to nose intact. Gross sensation intact. GCS: 15. Course Course ED COURSE: Vital signs were reviewed and showed hypertension. The patients medical record was reviewed The above diagnostic studies were performed and reviewed. ED treatments and interventions as stated above. 2317: The patient was evaluated in room A3. A complete history and physical examination was performed. 0016: The patient was able to get up and go to the bathroom. 0132: Upon reevaluation, the patient is resting comfortably. I discussed my findings with the patient and she understands and agrees with the treatment peng n. Based on the patients age, coexisting illnesses, exam and lab findings the decision to treat as an inpatient was made. The patient remained stable while under my care. 0135: The patient will be evaluated for further management by Dr. Alba- [facility] Hospitalist. Administered Medications Discontinued Medications Sodium Chloride (Nss) 500 mls @ 999 mls/hr IV .Q31M ONE Stop: 06/20/19 23:54 Last Infusion: 06/21/19 00:17 Dose: 0 mls/hr Documented by: [id number] Admin: 06/20/19 23:46 Dose: 999 mls/hr Documented by: [id number] Medical Decision Making Differential Diagnosis Differential diagnoses include major intracranial, cervical, spinal, thoracic, abdominal, pelvic and neurologic injury. Fracture, contusion, sprain, strain, laceration, abrasions included as well. Medical Records Attestation: I reviewed the patient's medical records. Home Medications Current Medication List: was personally reviewed by me Laboratory Data Attestation: I reviewed the patient's lab results. Result diagrams: 06/20/19 23:44 06/20/19 23:44 Lab Results 06/20/19 06/20/19 06/20/19 Range/Units 23:44 23:44 23:44 WBC 10.08 (4.8-10.8) K/uL RBC 3.89 L (4.2-5.4) M/uL Hgb 12.2 (12.0-16.0) g/dL Hct 35.6 L (37-47) % MCV 91.5 (80-100) fL MCH 31.4 (25-34) pg MCHC 34.3 (32-36) g/dL RDW Std Deviation 43.1 (36.4-46.3) fL RDW Coeff of [place] 12.9 (11.5-14.5) % Plt Count 280 (130-400) K/uL MPV 8.6 (7.4-10.4) fL Immature Gran % (Auto) 0.3 % Neut % (Auto) 76.0 % Lymph % (Auto) 14.5 % [place] % (Auto) 8.3 % Eos % (Auto) 0.8 % Baso % (Auto) 0.1 % Immature Gran # (Auto) 0.03 H (0.00-0.02) K/uL Neut # (Auto) 7.66 H (1.4-6.5) K/uL Lymph # (Auto) 1.46 (1.2-3.4) K/uL [place] # (Auto) 0.84 H (0.11-0.59) K/uL Eos # (Auto) 0.08 (0-0.5) K/uL Baso # (Auto) 0.01 (0-0.2) K/uL PT 10.6 (9.0-12.0) Seconds INR 1.0 (0.9-1.1) Sodium 129 L (136-145) mmol/L Potassium 4.0 (3.5-5.1) mmol/L Chloride 96 L (98-107) mmol/L Carbon Dioxide 26 (21-32) mmol/L Anion Gap 7.0 (3-11) BUN 17 (7-18) mg/dl Creatinine 1.07 (0.6-1.2) mg/dl Est Cr Clr Drug Dosing Not Reportable Est GFR ( Amer) 55.2 Est GFR (Non-Af Amer) 47.6 BUN/Creatinine Ratio 15.6 (10-20) Glucose 127 H (70-99) mg/dl Calcium 9.0 (8.5-10.1) mg/dl Magnesium 2.0 (1.8-2.4) mg/dl Total Bilirubin 0.3 (0.2-1) mg/dl AST 24 (15-37) U/L ALT 27 (12-78) U/L Alkaline Phosphatase 93 (45-117) U/L Troponin I < 0.015 (0-0.045) ng/ml Total Protein 9.0 H (6.4-8.2) gm/dl Albumin 3.5 (3.4-5.0) gm/dl Globulin 5.5 H (2.5-4.0) gm/dl Albumin/Globulin Ratio 0.6 L (0.9-2) TSH 13.600 H (0.300-4.500) uIu/ml Free T4 0.92 (0.8-1.6) ng/dl Urine Color Urine Appearance (Clear) Urine pH (4.5-7.5) Ur Specific [place] (1.000-1.030) Urine Protein (Negative) Urine Glucose (UA) (Negative) Urine Ketones (Negative) Urine Blood (Negative) Urine Nitrite (Negative) Urine Bilirubin (Negative) Urine Urobilinogen (Negative) Ur Leukocyte Esterase (Negative) Urine WBC (Auto) (0-5) /hpf Urine RBC (Auto) (0-4) /hpf U Hyaline Cast (Auto) (0-5) /lpf U Epithel Cells (Auto) (0-5) /lpf Urine Bacteria (Auto) (Negative) 06/21/19 Range/Units 00:15 WBC (4.8-10.8) K/uL RBC (4.2-5.4) M/uL Hgb (12.0-16.0) g/dL Hct (37-47) % MCV (80-100) fL MCH (25-34) pg MCHC (32-36) g/dL RDW Std Deviation (36.4-46.3) fL RDW Coeff of Neto (11.5-14.5) % Plt Count (130-400) K/uL MPV (7.4-10.4) fL Immature Gran % (Auto) % Neut % (Auto) % Lymph % (Auto) % [place] % (Auto) % Eos % (Auto) % Baso % (Auto) % Immature Gran # (Auto) (0.00-0.02) K/uL Neut # (Auto) (1.4-6.5) K/uL Lymph # (Auto) (1.2-3.4) K/uL [place] # (Auto) (0.11-0.59) K/uL Eos # (Auto) (0-0.5) K/uL Baso # (Auto) (0-0.2) K/uL PT (9.0-12.0) Seconds INR (0.9-1.1) Sodium (136-145) mmol/L Potassium (3.5-5.1) mmol/L Chloride (98-107) mmol/L Carbon Dioxide (21-32) mmol/L Anion Gap (3-11) BUN (7-18) mg/dl Creatinine (0.6-1.2) mg/dl Est Cr Clr Drug Dosing Est GFR ( Amer) Est GFR (Non-Af Amer) BUN/Creatinine Ratio (10-20) Glucose (70-99) mg/dl Calcium (8.5-10.1) mg/dl Magnesium (1.8-2.4) mg/dl Total Bilirubin (0.2-1) mg/dl AST (15-37) U/L ALT (12-78) U/L Alkaline Phosphatase (45-117) U/L Troponin I (0-0.045) ng/ml Total Protein (6.4-8.2) gm/dl Albumin (3.4-5.0) gm/dl Globulin (2.5-4.0) gm/dl Albumin/Globulin Ratio (0.9-2) TSH (0.300-4.500) uIu/ml Free T4 (0.8-1.6) ng/dl Urine Color Yellow Urine Appearance Clear (Clear) Urine pH 7.0 (4.5-7.5) Ur Specific [place] 1.015 (1.000-1.030) Urine Protein 2+ H (Negative) Urine Glucose (UA) Negative (Negative) Urine Ketones Negative (Negative) Urine Blood Negative (Negative) Urine Nitrite Negative (Negative) Urine Bilirubin Negative (Negative) Urine Urobilinogen Negative (Negative) Ur Leukocyte Esterase 2+ H (Negative) Urine WBC (Auto) 10-30 H (0-5) /hpf Urine RBC (Auto) 0-4 (0-4) /hpf U Hyaline Cast (Auto) 1-5 (0-5) /lpf U Epithel Cells (Auto) >30 H (0-5) /lpf Urine Bacteria (Auto) Negative (Negative) Imaging Data Attestation: I personally reviewed and interpreted this imaging study as follows: My Impression: PORTABLE 1 VIEW PELVIS X-RAY: No acute fracture or dislocation. Arthritis of bilateral hips. ECG Data Attestation: I personally reviewed and interpreted this ECG as follows: Indication: + weakness Rate (beats per minute): 79 Rhythm: + sinus rhythm ECG Intervals/blocks: + Normal QT-c ECG [place]: + Normal ECG Findings: no PVCs Blood Pressure Blood Pressure Findings: Elevated blood pressure Blood Pressure Disposition: further management by hospitalist MAICO Peralta Patient is an 84-year-old female that presents the ER following a mechanical fall. Patient was seen here earlier today for mechanical fall and had CT of the head and face which was unremarkable. She just got home she went to walk again and fell down onto her bottom. Upon presentation patient is fairly hypertensive. She had previous sutures placed on right orbit. She denies any blood thinners. IV was established and blood work was obtained. Labs show no significant leukocytosis or anemia. INR was unremarkable. BMP with mild hyponatremia. LFTs bilirubin and troponin was negative. TSH elevated at 13. Free T4 was normal. Patient notes that she feels unsteady and extremely weak. UA with multiple epithelial cells. X-ray of the pelvis shows no acute fracture. Previous CT of the head and face earlier today showed a right orbital floor fracture. With her recurrent falls and weakness patient was discussed with the hospitalist for observation. Impression & Plan Weakness, Fracture of orbital floor, Fall, Hyponatremia Discharge Plan Visit Data *Final* Discharge Date/Time: 06/21/19 03:07 Chief Complaint: Fall Stated Complaint: Fall ED Provider: Duarte Tena Discharge Problem: Weakness, Fracture of orbital floor, Fall, Hyponatremia Patient Disposition: Admitted As Inpatient Condition: Serious Discharge Instructions Interventions: ED Discharge Assessment Last Done: 06/21/19 03:07 Discharge Problem: Fracture of orbital floor Qualifiers: Encounter type: initial encounter Fracture type: closed Laterality: right Qualified Code(s): S02.31XA - Fracture of orbital floor, right side, initial encounter for closed fracture Fall Qualifiers: Encounter type: initial encounter Qualified Code(s): W19.XXXA - Unspecified fall, initial encounter The scribe's documentation has been prepared under my direction and personally reviewed by me in its entirety. I confirm that the note above accurately reflects all work, treatment, procedures, and medical decision making performed by me.
[2019-06-20 23:57] LABS: Basophils # (auto) 0.01 K/uL (0-0.2); Basophils % (auto) 0.1 %; Eosinophils # (auto) 0.08 K/uL (0-0.5); Eosinophils % (auto) 0.8 %; Hematocrit (blood only) 35.6 % (37-47); Hemoglobin 12.2 g/dL (12.0-16.0); Immature Granulocytes # (auto) 0.03 K/uL (0.00-0.02); Immature Granulocytes % (auto) 0.3 %; Lymphocytes # (auto) 1.46 K/uL (1.2-3.4); Lymphocytes % (auto) 14.5 %; Mean Corpuscular Hemoglobin 31.4 pg (25-34); Mean Corpuscular Hgb Conc 34.3 g/dL (32-36); Mean Corpuscular Volume 91.5 fL (80-100); Mean Platelet Volume 8.6 fL (7.4-10.4); Monocytes # (auto) 0.84 K/uL (0.11-0.59); Monocytes % (auto) 8.3 %; Neutrophils # (auto) 7.66 K/uL (1.4-6.5); Platelet Count 280 K/uL (130-400); RDW Coefficient of Variation 12.9 % (11.5-14.5); RDW Standard Deviation 43.1 fL (36.4-46.3); Red Blood Count 3.89 M/uL (4.2-5.4); White Blood Count 10.08 K/uL (4.8-10.8)
[2019-06-21 00:09] LABS: Prothrombin Time 10.6 Seconds (9.0-12.0)
[2019-06-21 00:16] LABS: Alanine Aminotransferase 27 U/L (12-78); Albumin Level 3.5 gm/dl (3.4-5.0); Aspartate Aminotransferase 24 U/L (15-37); BUN Creatinine Ratio 15.6 (10-20); Blood Urea Nitrogen 17 mg/dl (7-18); Carbon Dioxide 26 mmol/L (21-32); Chloride 96 mmol/L (98-107); Est GFR (African American) 55.2; Est GFR (Non-African American) 47.6; Glucose 127 mg/dl (70-99); Sodium 129 mmol/L (136-145)
[2019-06-21 00:26] LABS: Albumin Globulin Ratio 0.6 (0.9-2); Alkaline Phosphatase 93 U/L (45-117); Bilirubin,Total 0.3 mg/dl (0.2-1); Globulin 5.5 gm/dl (2.5-4.0); Troponin I < 0.015 ng/ml (0-0.045)
[2019-06-21 00:27] LABS: Appearance Urine Clear (Clear); Bacteria Urine Automated Negative (Negative); Bilirubin Urine Negative (Negative); Blood Urine Negative (Negative); Color Urine Yellow; Epithelial Cell Urine Auto >30 /lpf (0-5); Glucose Urine UA Negative (Negative); Ketones Urine Negative (Negative); Leukocyte Esterase Urine 2+ (Negative); Nitrite Urine Negative (Negative); Protein Urine 2+ (Negative); RBC Urine Automated 0-4 /hpf (0-4); Specific Gravity Urine 1.015 (1.000-1.030); Urobilinogen Urine Negative (Negative)
[2019-06-21 00:39] LABS: T4 Free Thyroxine 0.92 ng/dl (0.8-1.6)
--- NOTE | 2019-06-21 02:27 | History & Physical Report ---
Date of Service June 21, 2019 Assessment & Plan (1) Recurrent falls: Patient was admitted to the telemetry unit to monitor for arrhythmias. Treat dehydration with IV fluids. Hold nifedipine. Consult PT/OT for generalized weakness. Present on Admission?: Yes (2) Orbital floor fracture: Will need follow-up with outpatient ophthalmology Present on Admission?: Yes (3) Closed fracture of maxillary sinus: Noted to have blood in maxillary sinus. Place on ceftriaxone 1 g IV daily Present on Admission?: Yes (4) Facial laceration: Repaired in ED Present on Admission?: Yes (5) Hypertension: Hold nifedipine, due to possible triggering factor to falls. Continue losartan 75 mg p.o. daily. Placed on as needed hydralazine and Lopressor IV. Present on Admission?: Yes (6) Hypothyroidism: Patient reportedly is on levothyroxine 88 mcg every morning. I asked her daughter to verify that the patient is taking her Synthroid regularly, as her TSH is 13.6. There is concern to be contributing to her falls, her hyponatremia and generalized weakness. Present on Admission?: Yes (7) Situational anxiety: Continue lorazepam as needed Present on Admission?: Yes (8) Generalized weakness: Multifactorial,: Sjogren's syndrome, arthritis, undercorrected hypothyroidism, dehydration and others. Present on Admission?: Yes (9) Sjogren's syndrome: Patient has significant issues with dry mucous membranes as would be expected. Her daughter reports that anytime she gets IV fluids, she feels significantly better afterwards. She will be placed on IV fluids on this admission. Outpatient IV fluids in the [facility] may be helpful in preventing falls. Present on Admission?: Yes History of Present Illness Chief Complaint: The patient presents to the ED after recurrent falls at home, after having initial evaluation in the ED earlier in the day. Primary Care Provider: GAYLA Cesar The patient is an 84-year-old female with a past medical history including Sjogren's syndrome, hypothyroidism, anxiety, hypertension, hearing loss, and hy pothyroidism, who presents to the emergency department with increased frequency of falling. She was seen in the ED earlier in the day, after having had initial falls. She then went home, with her daughter attempting to help her, and had 2 additional falls, which prompted the return back to the ED. Her work-up earlier in the day included CT scans of the face which showed a right orbital floor fr acture, posterior wall right maxillary sinus fracture, and possible lateral wall right orbital fracture. There is also question of a possible right supraorbital tissue foreign body. The patient's main complaint is generalized weakness, and very dry mucous membranes, most of which she attributes to Sjogren's syndrome. Allergies Allergy/AdvReac Type Severity Reaction Status Date / Time adhesive Allergy Mild rash Verified 06/21/19 00:21 enalaprilat [From Vasotec] Allergy Unknown Verified 06/21/19 00:21 Sulfa (Sulfonamide AdvReac Mild Rash Verified 06/21/19 00:21 Antibiotics) atorvastatin AdvReac Unconscious Verified 06/21/19 00:21 Home Medications Home Medications Medication Instructions Recorded Confirmed Type PreserVision AREDS 1 tab PO QAM 10/12/18 06/21/19 History aspirin 81 mg PO QAM 10/12/18 06/21/19 History cholecalciferol (vitamin D3) 1,000 unit PO QAM 10/12/18 06/21/19 History [Vitamin D3] levothyroxine 88 mcg PO QAM 10/12/18 06/21/19 History omega-3 acid ethyl esters 1 gram 1 cap PO DAILY cap 02/15/19 06/21/19 History capsule buspirone 5 mg tablet 5 mg PO BID PRN #60 tab 04/16/19 06/21/19 Rx lorazepam 0.5 mg tablet 0.5 mg PO HS PRN #30 tab 04/26/19 06/21/19 History nifedipine 30 mg tablet,extended 60 mg PO QPM #90 tab 05/24/19 06/21/19 Rx release 24 hr carbamazepine 100 mg PO BID 06/20/19 06/21/19 History losartan 75 mg PO DAILY 06/21/19 06/21/19 History flzrhufh-fqa-HR-lycopen-lutein 1 tab PO DAILY 06/21/19 06/21/19 History [Centrum Silver] Past Med/Surg History Medical History Aortic valve sclerosis (Chronic) Arteriosclerosis of carotid artery (Chronic) Benign neoplasm of colon Cardiac murmur Cervical lymphadenopathy Chronic hoarseness (Chronic) Claustrophobia GERD (gastroesophageal reflux disease) Hyperlipidemia HX OF Hypertension Hypertension (Chronic) Hypothyroidism Hypothyroidism (Chronic) IBS (irritable bowel syndrome) Increased urinary frequency (Chronic) Macular degeneration Memory changes (Acute) 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) Mixed hyperlipidemia Monoclonal gammopathy of undetermined significance (Chronic) Osteoarthritis Osteoporosis (Chronic) Pulmonary nodule (Chronic) Rotator cuff tear, left (Resolved) Sensorineural hearing loss (SNHL) of both ears Sensorineural hearing loss (SNHL) of left ear with restricted hearing of right ear (Chronic) Situational anxiety (Chronic) Sjogren's syndrome (Chronic) Spinal stenosis Trigeminal neuralgia RIGHT Trigeminal neuralgia (Chronic) Unsteady gait Vocal cord paralysis (Chronic) Surgical History History of adenoidectomy History of bladder surgery BLADDER TACK History of colonoscopy History of hysterectomy (Inactive) History of lumpectomy (Inactive) History of throat surgery THURNWALDT CYST BENIGN History of tonsillectomy History of tooth extraction History of total abdominal hysterectomy and bilateral salpingo-oophorectomy Family History Son Family history of diabetes mellitus Father Cancer Sister Cancer Breast cancer Mother Myocardial infarction Social History Preferred Language: Welsh Communication Ability: Effective Experimental Technician Required: No Beliefs That Will Affect Care: None marital status: Current Living Situation: Spouse current occupational status: retired Feels Safe at Home: Yes Smoking Status: Never smoker Second Hand Exposure: No ; Hx Alcohol Use: Yes Alcohol type: wine Hx Substance Use: No caffeine: Yes Dental Care, Regularly: No Physical Activity Frequency: Does not Exercise Seatbelt Use: always Sunscreen Use: Yes Review of Systems Review of Systems: The patient denies chest pain, palpitations, shortness of b reath, dyspnea on exertion, cough, lower extremity swelling, sore throat, fevers, chills, sweats, nausea, vomiting, diarrhea , constipation, abdominal pain, pelvic pain, blood in urine or stool, dysuria, urinary frequency or urgency, headache, rash, abnormal bruising or bleeding, focal weakness, numbness or tingling in arms or legs, neck pain, or night sweats. The review of systems is otherwise negative other than for that already noted above, and at least 10 systems have been reviewed. Physical Exam Physical Exam: The patient is awake, alert and oriented 3, ecchymoses noted around right eye, lying in bed and in no acute distress. HEENT--PERRL, EOMI, mucous membranes and oropharynx dry. Neck--supple. No JVD. No bruits. Thyroid normal, trachea midline, no adenopathy. Heart--normal S1 and S2. No murmurs, rubs or gallops. Lungs--clear bilaterally, no respiratory distress, no accessory muscle use. Abdomen--normal bowel sounds and soft. Nontender. Nondistended, no hernias or masses, no organomegaly. Extremities--no cyanosis or clubbing. No edema. Dermatologic--normal skin turgor, normal color, no abnormal lymph nodes, no rash. Neurologic--cranial nerves II through XII grossly intact. Rheumatologic--normal range of motion. Psychiatric--normal affect. Results & Data Vital Signs (Past 12 Hours) Vital Signs Temp Pulse Resp BP Pulse Ox 06/21/19 01:00 70 12 134/62 97 06/21/19 00:31 74 16 98 06/21/19 00:30 74 19 171/73 H 98 06/21/19 00:01 75 17 99 06/21/19 00:00 76 14 170/64 H 98 06/20/19 23:48 84 17 177/90 H 99 06/20/19 23:30 78 17 98 06/20/19 23:22 79 15 100 06/20/19 23:18 97.7 F 83 20 197/88 H 97 Code Status & VTE Plan Code Status full code VTE Prophylaxis Plan VTE Prophylaxis will be ordered: Yes PG Care Time/CCT Total # of Minutes Spent Total Time Spent with Patient: Total time spent is greater than 50% in coordination of care (as documented) at patient's floor/unit and/or counseling patient: (1) Orbital floor fracture Encounter type: initial encounter Fracture type: closed Laterality: right Qualified Code(s): S02.31XA - Fracture of orbital floor, right side, initial encounter for closed fracture (2) Closed fracture of maxillary sinus Encounter type: initial encounter Qualified Code(s): S02.401A - Maxillary fracture, unspecified side, initial encounter for closed fracture (3) Facial laceration Encounter type: initial encounter Qualified Code(s): S01.81XA - Laceration without foreign body of other part of head, initial encounter
[2019-06-21] MEDS ORDERED: MAGNESIUM HYDROXIDE SUSP 30 ML UDC PO PRN (04:16)
[2019-06-21] MEDS ORDERED: ALUMINUM/MAGNESIUM SUSP 30 ML UDC PO PRN (04:16)
[2019-06-21] MEDS ORDERED: ONDANSETRON INJ 2 MG/ML 2 ML VIAL IV PRN (04:16)
[2019-06-21] MEDS ORDERED: LORazepam 0.5 MG TAB PO PRN (04:16)
[2019-06-21] MEDS ORDERED: NSS + 20MEQ KCL 20 MEQ/1,000 ML BAG IV SCH (04:16)
[2019-06-21] MEDS ORDERED: HydrALAZINE HCL 20 MG/ML VIAL IV PRN (04:16)
[2019-06-21] MEDS ORDERED: ACETAMINOPHEN 325 MG TAB PO PRN (04:16)
[2019-06-21] MEDS ORDERED: METOPROLOL TARTRATE 1 MG/ML VIAL IV PRN (04:16)
[2019-06-21] MEDS: LEVOTHYROXINE SODIUM 88 MCG TABLET PO SCH (05:00)
--- NOTE | 2019-06-21 06:37 | XRay Report ---
XR pelvis 1-2V routine CLINICAL HISTORY: Pelvic pain status post trauma COMPARISON: 01/25/2018 DISCUSSION: No fractures or dislocations are visualized. There is no SI joint diastases. There is no symphysis diastases. IMPRESSION: No fractures identified. Electronically signed by: Tye Sharif M.D. 06/21/2019 6:36 AM
[2019-06-21] MEDS: CHOLECALCIFEROL 1,000 UNITS TAB PO SCH (08:27)
[2019-06-21] MEDS: CEROVITE ADV FORMULA TAB PO SCH (08:27)
[2019-06-21] MEDS: ASPIRIN 81 MG ECTAB PO SCH (08:27)
[2019-06-21] MEDS: OMEGA-3 (PURIFIED FISH OIL) 1 GM CAP PO SCH (08:27)
[2019-06-21] MEDS: carBAMazepine 200 MG TABLET PO SCH ×2 (08:28→19:48)
[2019-06-21] MEDS ORDERED: NON-FORMULARY MEDICATION (Multivit-Min-Fa-Lycopen-Lutein [Centrum Silver] 1 TAB) PO SCH (09:00)
[2019-06-21] MEDS ORDERED: cefTRIAXone SODIUM 1,000 MG in DEXTROSE 5% 50 ML IV SCH (09:00)
[2019-06-21] MEDS ORDERED: LOSARTAN POTASSIUM 25 MG TAB PO SCH (09:00)
[2019-06-21 10:36] LABS: Basophils # (auto) 0.01 K/uL (0-0.2); Basophils % (auto) 0.2 %; Eosinophils # (auto) 0.16 K/uL (0-0.5); Eosinophils % (auto) 2.6 %; Hematocrit (blood only) 33.9 % (37-47); Hemoglobin 11.3 g/dL (12.0-16.0); Immature Granulocytes # (auto) 0.03 K/uL (0.00-0.02); Immature Granulocytes % (auto) 0.5 %; Lymphocytes # (auto) 1.82 K/uL (1.2-3.4); Lymphocytes % (auto) 29.8 %; Mean Corpuscular Hemoglobin 30.8 pg (25-34); Mean Corpuscular Hgb Conc 33.3 g/dL (32-36); Mean Corpuscular Volume 92.4 fL (80-100); Monocytes # (auto) 0.75 K/uL (0.11-0.59); Monocytes % (auto) 12.3 %; Neutrophils # (auto) 3.33 K/uL (1.4-6.5); Neutrophils % (auto) 54.6 %; Platelet Count 280 K/uL (130-400); RDW Coefficient of Variation 13.1 % (11.5-14.5); RDW Standard Deviation 44.1 fL (36.4-46.3); Red Blood Count 3.67 M/uL (4.2-5.4)
[2019-06-21 11:04] LABS: Albumin Globulin Ratio 0.6 (0.9-2); BUN Creatinine Ratio 17.1 (10-20); Bilirubin,Total 0.3 mg/dl (0.2-1); Calcium 9.1 mg/dl (8.5-10.1); Creatinine Clr Calc Pharmacy 32.3 ml/min; Est GFR (African American) 65.4; Est GFR (Non-African American) 56.4; Globulin 5.2 gm/dl (2.5-4.0); Total Protein 8.2 gm/dl (6.4-8.2)
[2019-06-21 11:53] LABS: Potassium 4.4 mmol/L (3.5-5.1)
[2019-06-21 11:58] LABS: Magnesium 2.1 mg/dl (1.8-2.4)
[2019-06-21] MEDS ORDERED: carvediloL 3.125 MG TAB PO ONE (13:45)
[2019-06-21] MEDS ORDERED: NIFEdipine EXTENDED REL 30 MG TABCR PO STA (16:04)
[2019-06-21] MEDS ORDERED: LOSARTAN POTASSIUM 25 MG TAB PO ONE (16:49)
[2019-06-21] MEDS ORDERED: carvediloL 3.125 MG TAB PO SCH (21:00)
--- NOTE | 2019-06-21 22:40 | Hospitalist Progress Note ---
Date of Service June 21, 2019 Assessment & Plan (1) Recurrent falls: Suspect general deterioration in balance rather than acute pathology cause of falls. IV fluids stopped. Consult PT/OT for generalized weakness. (2) Orbital floor fracture: Follow-up with outpatient ophthalmology. No diplopia. (3) Closed fracture of maxillary sinus: Noted to have blood in maxillary sinus. Will switch back to augmentin 875mg PO BID (4) Facial laceration: Stitches to be removed on June 26 (5) Hypertension: Given non constant dosing of carbamazepine and interaction with nifedipine will therefore switch to amlodipine. Continue losartan 100mg p.o. daily (usual dose, incorrect on med rec). Added carvedilol 3.125mg BID given heart rate. (6) Hypothyroidism: Suspect acute TSH rise due to fall rather than truly hypothyroid. Continue on levothyroxine 88 mcg daily. Recheck TSH in 4-6 weeks. (7) Situational anxiety: Stop lorazepam - no refilled since September Continue buspar 5mg BID (8) Generalized weakness: Multifactorial,: Sjogren's syndrome, arthritis, dehydration. (9) Sjogren's syndrome: Outpatient IV fluids in the [facility] may be helpful in preventing falls. (10) Hyponatremia: Suspect secondary to carbamazepine use. Doubtful significance to current falls. Subjective Revisited recent history with the patient and family at bedside. Mechanical fall described initially when she tried to lift a shopping cart. Additional falls at home with loss of consciousness suspected due to low blood pressure at that time. No prodromal symptoms. She now feels back to her normal baseline self. She reports no acute events overnight. No current concerns. Known labile blood pressure but no dizziness/lightheadedness usually. Review of Systems Review of Systems: All systems reviewed & are unremarkable except as noted in HPI & below Physical Exam Constitutional: well developed and well nourished; no acute distress Eyes: + anicteric sclerae; normal pupil size ENMT: external ear and nose normal, oropharynx normal Neck: trachea midline, no thyromegaly Respiratory: normal respiratory effort, lungs clear to auscultation Cardiovascular: RRR, no murmur, no edema Gastrointestinal (Abdomen): normal bowel sounds, soft, nontender, no hepatosplenomegaly Musculoskeletal: no cyanosis or clubbing, extremities motor strength 5/5 Skin: + ecchymosis (surrounding right eye) Neurologic: CN's II-XI intact bilaterally, moves all extremities and awake; no focal motor deficits and not confused Motor/Sensory: no tremor, no pronator drift and no sensory deficit Psychiatric: A+Ox3, euthymic affect Results & Data Vital Signs (Past 12 Hours) Vital Signs Temp Pulse Pulse Resp BP BP Pulse Ox 06/21/19 19:22 36.7 C 73 18 152/80 H 95 06/21/19 15:01 36.6 C 79 18 206/77 H 100 06/21/19 13:01 36.8 C 80 17 174/77 H 98 PG Care Time/CCT Total # of Minutes Spent Total Time Spent with Patient: Total time spent is greater than 50% in coordination of care (as documented) at patient's floor/unit and/or counseling patient: (1) Orbital floor fracture Encounter type: initial encounter Fracture type: closed Laterality: right Qualified Code(s): S02.31XA - Fracture of orbital floor, right side, initial encounter for closed fracture (2) Closed fracture of maxillary sinus Encounter type: initial encounter Qualified Code(s): S02.401A - Maxillary fracture, unspecified side, initial encounter for closed fracture (3) Facial laceration Encounter type: initial encounter Qualified Code(s): S01.81XA - Laceration without foreign body of other part of head, initial encounter (4) Hypertension Hypertension type: essential hypertension Qualified Code(s): I10 - Essential (primary) hypertension (5) Hypothyroidism Hypothyroidism type: unspecified Qualified Code(s): E03.9 - Hypothyroidism, unspecified (6) Sjogren's syndrome Sjogren's organ involvement: unspecified organ involvement Qualified Code(s): M35.00 - Sicca syndrome, unspecified
[2019-06-22] MEDS: LEVOTHYROXINE SODIUM 88 MCG TABLET PO SCH (05:43)
[2019-06-22] MEDS: CHOLECALCIFEROL 1,000 UNITS TAB PO SCH (08:04)
[2019-06-22] MEDS: CEROVITE ADV FORMULA TAB PO SCH (08:04)
[2019-06-22] MEDS: OMEGA-3 (PURIFIED FISH OIL) 1 GM CAP PO SCH (08:04)
[2019-06-22] MEDS: AMOXICILLIN/CLAVULANATE 875 MG TAB PO SCH ×2 (08:05→16:29)
[2019-06-22] MEDS: carBAMazepine 200 MG TABLET PO SCH (08:05)
[2019-06-22] MEDS: ASPIRIN 81 MG ECTAB PO SCH (08:05)
[2019-06-22] MEDS ORDERED: AMLODIPINE BESYLATE 5 MG TAB PO SCH (09:00)
[2019-06-22] MEDS ORDERED: LOSARTAN POTASSIUM 50 MG TAB PO SCH (09:00)
[2019-06-22 10:52] LABS: BUN Creatinine Ratio 15.7 (10-20); Calcium 8.5 mg/dl (8.5-10.1); Creatinine Clr Calc Pharmacy 25.1 ml/min; Est GFR (African American) 48.1; Est GFR (Non-African American) 41.5; Potassium 4.4 mmol/L (3.5-5.1)
[2019-06-22] MEDS ORDERED: carvediloL 3.125 MG TAB PO ONE (16:30)
--- NOTE | 2019-06-25 16:36 | Discharge Summary ---
Date of Service June 22, 2019 Admission HPI Per Admitting Provider The patient is an 84-year-old female with a past medical history including Sjogren's syndrome, hypothyroidism, anxiety, hypertension, hearing loss, and hypothyroidism, who presents to the emergency department with increased frequency of falling. She was seen in the ED earlier in the day, after having had initial falls. She then went home, with her daughter attempting to help her, and had 2 additional falls, which prompted the return back to the ED. Her work-up earlier in the day included CT scans of the face which showed a right orbital floor fracture, posterior wall right maxillary sinus fracture, and pos sible lateral wall right orbital fracture. There is also question of a possible right supraorbital tissue foreign body. The patient's main complaint is generalized weakness, and very dry mucous membr anes, most of which she attributes to Sjogren's syndrome. Admission Exam Per Admitting Provider The patient is awake, alert and oriented 3, ecchymoses noted around right eye, lying in bed and in no acute distress. HEENT--PERRL, EOMI, mucous membranes and oropharynx dry. Neck--supple. No JVD. No bruits. Thyroid normal, trachea midline, no adenopathy. Heart--normal S1 and S2. No murmurs, rubs or gallops. Lungs--clear bilaterally, no respiratory distress, no accessory muscle use. Abdomen--normal bowel sounds and soft. Nontender. Nondistended, no hernias or masses, no organomegaly. Extremities--no cyanosis or clubbing. No edema. Dermatologic--normal skin turgor, normal color, no abnormal lymph nodes, no rash. Neurologic--cranial nerves II through XII grossly intact. Rheumatologic--normal range of motion. Psychiatric--normal affect. Principal Diagnosis Syncope Discharge Exam Constitutional well developed and well nourished; no acute distress Eyes + anicteric sclerae; normal pupil size ENMT external ear and nose normal, oropharynx normal Neck trachea midline, no thyromegaly Respiratory normal respiratory effort, lungs clear to auscultation Cardiovascular RRR, no murmur, no edema Gastrointestinal (Abdomen) normal bowel sounds, soft, nontender, no hepatosplenomegaly Musculoskeletal no cyanosis or clubbing, extremities motor strength 5/5 Skin + ecchymosis (surrounding right eye) Neurologic CN's II-XI intact bilaterally, moves all extremities and awake; no focal motor deficits and not confused Motor/Sensory: no tremor, no pronator drift and no sensory deficit Psychiatric A+Ox3, euthymic affect Discharge Data Allergies Allergy/AdvReac Type Severity Reaction Status Date / Time adhesive Allergy Mild rash Verified 06/21/19 00:21 enalaprilat [From Vasotec] Allergy Unknown Verified 06/21/19 00:21 Sulfa (Sulfonamide AdvReac Mild Rash Verified 06/21/19 00:21 Antibiotics) atorvastatin AdvReac Unconscious Verified 06/21/19 00:21 Consultations 06/21/19 01:35 ED Decision to Admit Stat 06/21/19 04:16 Consult Case Management - Discharge Planning Routine Hospital Course (1) Recurrent falls: Kathy Aragon is an 84 year old female admitted to [facility] from June 20 to 2018 due to recurrent falls and syncope. Initial fall on June 20 suspected mechanical due to trying to lift a shopping cart over a curb. She was discharged home from the ER and suspect her adrenaline subsided and she became mildly dehydrated with the days events while on antihypertensives (known labile blood pressure). She was noted to have a murmur but reports this has been known about for years and outside of this episode reports no dizziness, shortness of breath or chest pain on exertion. She reports having an echocardiogram in the last year without any valvular disease although I could not find this and could be considered if no record with her PCP. She was noted to be hypertensive while admitted (nifedipine initially held). Nifedipine was switched to amlodipine due to carbamazepine interaction (she occasionally takes increased dose of this). In addition she was started on a small dose of carvedilol. No arrhythmias were present on telemetry. She should continue on previous treatment for orbital floor fracture (Augmentin previously prescribed) and follow-up with ophthalmology. Stitches are due to be removed around June 26 either by her primary care physician or return to the ER. Lorazepam removed from medication list due to increased risk of falls on this and does not appear to have been refilled since September. (2) Orbital floor fracture: (3) Closed fracture of maxillary sinus: (4) Facial laceration: (5) Hypertension: (6) Hypothyroidism: (7) Situational anxiety: (8) Generalized weakness: (9) Sjogren's syndrome: (10) Hyponatremia: Total Time Total Time Spent Total Time Spent (In Minutes): 40 Total Time Includes: Examination of the Patient, Discharge Planning and Medication Reconciliation Discharge Plan Discharge Items Patient Disposition: Home - Self-Care Reason For Visit: RECURRENT SYNCOPE, R ORBITAL FLOOR, MAX SINUS FRAC Discharge Diagnosis: Syncope Condition on Discharge: Fair Activity: Resume your previous activity Non-emergency contact: Primary Care Provider Call non-emergency contact if: you have any medication questions, your symptoms worsen and your temperature is above 101 Follow-up/Referrals: Deepti Francois CRNP [Primary Care Provider] - (Within 1 week of discharge.) Diet: Regular Addtl Attending Provider Instructions: You were admitted to [facility] from June 20 to 2018 due to recurrent falls and syncope. Initial fall suspected mechanical due to trying to lift a shopping cart subsequent syncopal event suspected due to mild dehydration while taking antihypertensive medications. You were noted to be hypertensive while admitted. Given lability and blood pressures this may be due to interaction of carbamazepine with nifedipine since your carbamazepine dose changes we have switched your blood pressure medication to amlodipine. Despite this your blood pressure has remained elevated and recommends starting a low-dose carvedilol in addition. Please follow-up with your biofuels manager and primary care physician regarding ongoing management of your blood pressure. If you feel lightheaded or dizzy on standing recommend stopping the carvedilol and inform your primary care physician or emergency return to the ER. Please continue previous treatment for orbital floor fracture (Augmentin previously prescribed) and follow-up with ophthalmology. Your stitches are due to be removed around June 26 either by your primary care physician or return to the ER. I have removed Lorazepam from your medication list as this increases your risk of falling, and does not appear to have been refilled since September. Pending Studies at Discharge: No Stand-Alone Forms: [facility], Smoking Cessation Medications and DC Order Prescriptions: New carvedilol 3.125 mg tablet 3.125 mg PO BID Qty: 60 RF: 0 amlodipine 10 mg tablet 10 mg PO DAILY Qty: 30 RF: 0 Continued buspirone 5 mg tablet 5 mg PO BID PRN (Reason: anxiety) Qty: 60 RF: 5 omega-3 acid ethyl esters 1 gram capsule 1 cap PO DAILY RF: 0 aspirin 81 mg Tablet,Delayed Release (Dr/Ec) 81 mg PO QAM RF: 0 levothyroxine 88 mcg Tablet 88 mcg PO QAM RF: 0 cholecalciferol (vitamin D3) [Vitamin D3] 1,000 unit Tablet 1,000 unit PO QAM RF: 0 PreserVision AREDS 7,160-113-100 [id number] Tablet 1 tab PO QAM RF: 0 carbamazepine 200 mg tablet 100 mg PO BID RF: 0 losartan 50 mg Tablet 100 mg PO DAILY RF: 0 Centrum Silver 0.4-300-250 mg-mcg-mcg Tablet 1 tab PO DAILY RF: 0 Augmentin RF: 0 Discontinued nifedipine 30 mg tablet extended release 24hr 60 mg PO QPM Qty: 90 RF: 3 lorazepam 0.5 mg tablet 0.5 mg PO HS PRN (Reason: sleep) Qty: 30 RF: 0 Discharge Orders: Discharge Order (Routine); Ordered 06/22/19 Ordered By: Ulises Yip Admission Data Admit Date/Time: 06/21/19 02:24 Attending Provider: Ulises Yip Admit Provider: Christian Alba Primary Care Provider: Deepti Francois Other Providers: Christian Alba Other Interventions: Discharge Summary Assessment (RN) Last Done: 06/22/19 15:02 DC Date/Time DO NOT enter until pt leaves facility: 06/22/19 17:31
== END 2019-06-22 17:31 | disposition home or self-care (01) | DRG 158 ==
LOC: ED 23:13 → SUATTDRO 06-21 02:24 → 1E 06-21 02:24 → 2S 06-21 15:11

== ENCOUNTER 2019-09-13 23:01 | Inpatient (IN) ==
[2019-09-13] MEDS ORDERED: SODIUM CHLORIDE 0.9% 1000ML 500 ML IV ONE (23:28)
[2019-09-13] MEDS ORDERED: LABETALOL HCL IV 5 MG/ML 20ML IV STA (23:28)
[2019-09-13 23:47] LABS: Appearance Urine Clear (Clear); Bacteria Urine Automated Negative (Negative); Bilirubin Urine Negative (Negative); Blood Urine Negative (Negative); Color Urine Yellow; Glucose Urine UA Negative (Negative); Ketones Urine Negative (Negative); Leukocyte Esterase Urine Negative (Negative); Nitrite Urine Negative (Negative); RBC Urine Automated 0-4 /hpf (0-4); Specific Gravity Urine 1.013 (1.000-1.030); Urobilinogen Urine Negative (Negative); pH Urine 7.5 (4.5-7.5)
[2019-09-13 23:49] LABS: BUN Creatinine Ratio 20.7 (10-20); Blood Urea Nitrogen 23 mg/dl (7-18); Calcium 9.3 mg/dl (8.5-10.1); Carbon Dioxide 25 mmol/L (21-32); Chloride 93 mmol/L (98-107); Creatinine Clr Calc Pharmacy 27.3 ml/min; Est GFR (African American) 53.4; Est GFR (Non-African American) 46.1; Glucose 136 mg/dl (70-99); Magnesium 1.8 mg/dl (1.8-2.4); Potassium 4.3 mmol/L (3.5-5.1); Sodium 125 mmol/L (136-145)
[2019-09-13 23:56] LABS: Protein Urine 3+ (Negative); Sulfosalicylic Acid Urine Positive (Negative)
[2019-09-14] LABS: Basophils # (auto) 0.02 K/uL (0-0.2); Basophils % (auto) 0.3 %; Eosinophils # (auto) 0.22 K/uL (0-0.5); Eosinophils % (auto) 2.8 %; Hematocrit (blood only) 33.1 % (37-47); Hemoglobin 11.5 g/dL (12.0-16.0); Immature Granulocytes # (auto) 0.02 K/uL (0.00-0.02); Immature Granulocytes % (auto) 0.3 %; Lymphocytes # (auto) 2.43 K/uL (1.2-3.4); Lymphocytes % (auto) 31.4 %; Mean Corpuscular Hemoglobin 31.2 pg (25-34); Mean Corpuscular Hgb Conc 34.7 g/dL (32-36); Mean Corpuscular Volume 89.7 fL (80-100); Mean Platelet Volume 8.9 fL (7.4-10.4); Monocytes # (auto) 0.66 K/uL (0.11-0.59); Monocytes % (auto) 8.5 %; Neutrophils # (auto) 4.38 K/uL (1.4-6.5); Neutrophils % (auto) 56.7 %; Platelet Count 257 K/uL (130-400); RDW Coefficient of Variation 12.5 % (11.5-14.5); RDW Standard Deviation 40.9 fL (36.4-46.3); Red Blood Count 3.69 M/uL (4.2-5.4); Troponin I < 0.015 ng/ml (0-0.045); White Blood Count 7.73 K/uL (4.8-10.8)
[2019-09-14] MEDS ORDERED: SODIUM CHLORIDE 0.9% 1000ML 1,000 ML IV SCH ×2 (00:15→06:45)
[2019-09-14 00:26] LABS: T4 Free Thyroxine 0.82 ng/dl (0.8-1.6)
--- NOTE | 2019-09-14 01:08 | History & Physical Report ---
Date of Service September 14, 2019 Assessment & Plan (1) Syncope: 84yo C female presenting with syncopal event. Patient describes a mild prodrome of warmth and nausea prior to the event. Presently neurologically intact, EKG unremarkable, troponin negative. Labs with hyponatremia, see below -Admission to medical floor with telemetry monitoring -Check Orthostatic VS x 1 -Check 2D echo to assess severity of aortic stenosis- history of + syncope -Fall precautions Present on Admission?: Yes (2) Hypertension: Patient with markedly elevated blood pressure in the ER. Family reports that BP is best in the morning and increases throughout the day. She was given Labetalol 10mg IV x 1 dose with improvement -Continue Amlodipine 10mg po daily -Continue Carvedilol 3.125mg po BID -Continue Losartan 100mg po daily -Continue to monitor Present on Admission?: Yes (3) Acute hyponatremia: Bq=026, decreased from prior value of 133. Patient appears clinically dry on exam. Hypothyroidism may also be contributing. No seizure or AMS. Patient does report poor balance over the last two weeks -Check BMP on arrival to floor -Check urine and serum osmolality, random urine Na -Continue to monitor Na levels Present on Admission?: Yes (4) Hypothyroidism: Elevated TSH=16.4, normal T4. Patient reports compliance with her Synthroid 88mcg -Consider increase to 125mcg with outpatient followup Present on Admission?: Yes (5) Aortic valve sclerosis: Per history. Patient denies angina, dyspnea. Syncope as above -Check 2D echo Present on Admission?: Yes (6) Situational anxiety: Chronic. Stable -Continue Buspirone PRN Present on Admission?: Yes (7) Sjogren's syndrome: Chronic. Patient with dry mouth -Symptomatic treatement as needed F/E/N - given NSS in the ER, repeat BMP when patient to floor, monitor electrolytes, heart healthy diet Ppx - Lovenox 30 Code - Full per discussion with patient Dispo - Admission to medical floor with telemetry Present on Admission?: Yes History of Present Illness Chief Complaint: Syncope Primary Care Provider: GAYLA Cesar Madelyndiallo Margo is a pleasant 84yo C female with history of , HTN/HLP/Hypothyroidism presenting after a syncopal event. She was at a play this evening with her family, reports feeling warm and nauseous then woke up on the floor. Her granddaughter at bedside states that patient slumped over in her chair and became unresponsive. No witnessed seizure activity, no bowel/bladder incontinence. Family/bystanders moved her to the ground and elevated her legs. She was out for approximately 4-5 minutes. No post-ictal period reported. Patient denies CP/palpitations/dizziness preceding or following the event. Possibly had one additional syncopal event in the past. Denies exertional CP or SOB. No additional complaints at this time. ER Course: NSS 500mL bolus then 125mL/hr, Labetalol 10mg IV Allergies Allergy/AdvReac Type Severity Reaction Status Date / Time adhesive Allergy Mild rash Verified 09/13/19 23:42 enalaprilat [From Vasotec] Allergy Unknown Unknown Verified 09/13/19 23:42 atorvastatin AdvReac Severe Unconscious Verified 09/13/19 23:42 Sulfa (Sulfonamide AdvReac Mild Rash Verified 09/13/19 23:42 Antibiotics) Home Medications Home Medications Medication Instructions Recorded Confirmed Type PreserVision AREDS 1 tab PO QAM 10/12/18 09/13/19 History aspirin 81 mg PO QAM 10/12/18 09/13/19 History cholecalciferol (vitamin D3) 1,000 unit PO QAM 10/12/18 09/13/19 History [Vitamin D3] omega-3 acid ethyl esters 1 gram 1 cap PO DAILY cap 02/15/19 09/13/19 History capsule Centrum Silver 1 tab PO DAILY 06/21/19 09/13/19 History levothyroxine 88 mcg tablet 88 mcg PO QAM #90 tab 08/22/19 09/13/19 Rx losartan 100 mg tablet 100 mg PO DAILY #90 tab 08/22/19 09/13/19 Rx amlodipine 10 mg tablet 10 mg PO DAILY #90 tab 09/09/19 09/13/19 Rx buspirone 5 mg tablet 5 mg PO BID PRN #180 tab 09/09/19 09/13/19 Rx carbamazepine 200 mg tablet 100 mg PO BID #90 tab 09/09/19 09/13/19 Rx carvedilol 3.125 mg PO BIDM 09/13/19 09/13/19 History Past Med/Surg History Medical History Aortic valve sclerosis (Chronic) Arteriosclerosis of carotid artery (Chronic) Benign neoplasm of colon Cardiac murmur Cervical lymphadenopathy Chronic hoarseness (Chronic) Claustrophobia GERD (gastroesophageal reflux disease) Hyperlipidemia HX OF Hypertension Hypertension (Chronic) Hypothyroidism Hypothyroidism (Chronic) IBS (irritable bowel syndrome) Increased urinary frequency (Chronic) Insomnia (Chronic) Macular degeneration Memory changes (Acute) 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) Mixed hyperlipidemia Monoclonal gammopathy of undetermined significance (Chronic) Osteoarthritis Osteoporosis (Chronic) Pulmonary nodule (Chronic) Rotator cuff tear, left (Resolved) Sensorineural hearing loss (SNHL) of both ears Sensorineural hearing loss (SNHL) of left ear with restricted hearing of right ear (Chronic) Situational anxiety (Chronic) Sjogren's syndrome (Chronic) Spinal stenosis Trigeminal neuralgia RIGHT Trigeminal neuralgia (Chronic) Unsteady gait Vocal cord paralysis (Chronic) Surgical History History of adenoidectomy History of bladder surgery BLADDER TACK History of colonoscopy History of hysterectomy (Inactive) History of lumpectomy (Inactive) History of throat surgery THURNWALDT CYST BENIGN History of tonsillectomy History of tooth extraction History of total abdominal hysterectomy and bilateral salpingo-oophorectomy Family History Son Family history of diabetes mellitus Father Cancer Sister Cancer Breast cancer Heart disease H/O heart artery stent Mother Myocardial infarction Grandmother AAA (abdominal aortic aneurysm) Myocardial infarction Denies family history of Ovarian cancer Prostate cancer Colorectal cancer Social History Preferred Language: Greenlandic Communication Ability: Effective Supervisor [employer] Required: No Beliefs That Will Affect Care: None marital status: Current Living Situation: Spouse current occupational status: retired Feels Safe at Home: Yes Smoking Status: Never smoker Second Hand Exposure: No ; Hx Alcohol Use: Yes Alcohol type: wine Hx Substance Use: No caffeine: Yes Dental Care, Regularly: No Physical Activity Frequency: Does not Exercise Seatbelt Use: always Sunscreen Use: Yes Review of Systems Review of Systems: All systems reviewed & are unremarkable except as noted in HPI & below +Chills, feeling cold +Poor balance Denies confusion, seizures Physical Exam Physical Exam: General: patient resting comfortably, NAD, non-toxic in appearance, AA&O x 4 Skin: warm, dry, intact, no rashes or lesions HEENT: NC/AT, PERRL, EOMI, anicteric sclera, conjunctiva without injection, external ear normal to inspection and nontender, nares patent, dry mucus membranes, dentures in place, no oropharyngeal lesions, neck supple, trachea midline, no LAD, no thyromegaly, no JVD Heart: +S1/S2, regular, 3/6 DIANE across precordium to bilateral carotids Lungs: equal air entry bilaterally, no rales/rhonchi/wheezes Abd: +BS, soft, NT/ND, no masses/organomegaly/ascites Ext: warm, 2+ pulses in UE/LE bilaterally, no clubbing/cyanosis or edema Neuro: nonfocal, patient AA&O x 4, speech intact, no facial droop, moving all extremities on command with equal strength 5/5, gait slow and mildly unsteady Results & Data Vital Signs (Past 12 Hours) Vital Signs Temp Pulse Resp BP Pulse Ox 09/14/19 00:38 76 20 174/116 H 09/14/19 00:31 77 21 09/14/19 00:30 80 20 204/85 H 09/14/19 00:15 72 20 09/14/19 00:05 73 16 191/79 H 09/14/19 00:03 75 18 09/13/19 23:45 69 22 09/13/19 23:42 74 22 170/79 H 09/13/19 23:39 78 17 186/100 H 09/13/19 23:30 78 17 09/13/19 23:21 89 18 09/13/19 23:10 36.7 C 78 16 190/117 H 98 09/13/19 23:08 80 18 98 09/13/19 23:06 79 15 190/117 H 98 Laboratory Results Lab Results 09/13/19 09/13/19 09/13/19 Range/Units 23:00 23:00 23:00 WBC 7.73 (4.8-10.8) K/uL RBC 3.69 L (4.2-5.4) M/uL Hgb 11.5 L (12.0-16.0) g/dL Hct 33.1 L (37-47) % MCV 89.7 (80-100) fL MCH 31.2 (25-34) pg MCHC 34.7 (32-36) g/dL RDW Std Deviation 40.9 (36.4-46.3) fL RDW Coeff of [place] 12.5 (11.5-14.5) % Plt Count 257 (130-400) K/uL MPV 8.9 (7.4-10.4) fL Immature Gran % (Auto) 0.3 % Neut % (Auto) 56.7 % Lymph % (Auto) 31.4 % [place] % (Auto) 8.5 % Eos % (Auto) 2.8 % Baso % (Auto) 0.3 % Immature Gran # (Auto) 0.02 (0.00-0.02) K/uL Neut # (Auto) 4.38 (1.4-6.5) K/uL Lymph # (Auto) 2.43 (1.2-3.4) K/uL [place] # (Auto) 0.66 H (0.11-0.59) K/uL Eos # (Auto) 0.22 (0-0.5) K/uL Baso # (Auto) 0.02 (0-0.2) K/uL Sodium 125 L (136-145) mmol/L Potassium 4.3 (3.5-5.1) mmol/L Chloride 93 L (98-107) mmol/L Carbon Dioxide 25 (21-32) mmol/L Anion Gap 7.0 (3-11) BUN 23 H (7-18) mg/dl Creatinine 1.10 (0.6-1.2) mg/dl Est Cr Clr Drug Dosing 27.3 ml/min Est GFR ( Amer) 53.4 Est GFR (Non-Af Amer) 46.1 BUN/Creatinine Ratio 20.7 H (10-20) Glucose 136 H (70-99) mg/dl Calcium 9.3 (8.5-10.1) mg/dl Magnesium 1.8 (1.8-2.4) mg/dl Troponin I < 0.015 (0-0.045) ng/ml TSH 16.400 H (0.300-4.500) uIu/ml Free T4 0.82 (0.8-1.6) ng/dl Urine Color Yellow Urine Appearance Clear (Clear) Urine pH 7.5 (4.5-7.5) Ur Specific [place] 1.013 (1.000-1.030) Urine Protein 3+ H (Negative) Urine Glucose (UA) Negative (Negative) Urine Ketones Negative (Negative) Urine Blood Negative (Negative) Urine Nitrite Negative (Negative) Urine Bilirubin Negative (Negative) Urine Urobilinogen Negative (Negative) Ur Leukocyte Esterase Negative (Negative) Urine WBC (Auto) 1-5 (0-5) /hpf Urine RBC (Auto) 0-4 (0-4) /hpf U Hyaline Cast (Auto) 1-5 (0-5) /lpf U Epithel Cells (Auto) 10-20 H (0-5) /lpf Urine Bacteria (Auto) Negative (Negative) Diagnostic Findings CT Head without contrast - per STAT-rad - no acute intracranial findings. Bilateral lens replacement. Mild involutional changes CXR - no acute process ECG Additional Comments: NSR at 77bpm, normal axis, SW=863, QRS=84, UBh=312, no acute ischemic changes Code Status & VTE Plan Code Status Full code VTE Prophylaxis Plan VTE Prophylaxis will be ordered: Yes PG Care Time/CCT Total # of Minutes Spent Total Time Spent with Patient: Total time spent is greater than 50% in coordination of care (as documented) at patient's floor/unit and/or counseling patient: Coding Level of Care Code 72903 Initial Inpt Care Lvl 3 Diagnoses Syncope R55 Syncope type: unspecified Hypertension I10 Hypertension type: essential hypertension Acute hyponatremia E87.1 Hypothyroidism E03.9 Hypothyroidism type: unspecified Aortic valve sclerosis I35.8 Situational anxiety F41.8 Sjogren's syndrome M35.00 Sjogren's organ involvement: unspecified organ involvement (1) Syncope Syncope type: unspecified Qualified Code(s): R55 - Syncope and collapse (2) Hypertension Hypertension type: essential hypertension Qualified Code(s): I10 - Essential (primary) hypertension (3) Hypothyroidism Hypothyroidism type: unspecified Qualified Code(s): E03.9 - Hypothyroidism, unspecified (4) Sjogren's syndrome Sjogren's organ involvement: unspecified organ involvement Qualified Code(s): M35.00 - Sicca syndrome, unspecified
[2019-09-14] MEDS ORDERED: ACETAMINOPHEN 325 MG TAB PO PRN (01:45)
[2019-09-14] MEDS ORDERED: DOCUSATE SODIUM 100 MG CAP PO PRN (01:45)
[2019-09-14] MEDS ORDERED: ONDANSETRON INJ 2 MG/ML 2 ML VIAL IV PRN (01:45)
[2019-09-14 02:31] LABS: BUN Creatinine Ratio 19.7 (10-20); Calcium 8.5 mg/dl (8.5-10.1); Creatinine Clr Calc Pharmacy 33.4 ml/min; Est GFR (African American) 68.1; Est GFR (Non-African American) 58.7; Potassium 4.2 mmol/L (3.5-5.1)
--- NOTE | 2019-09-14 04:38 | Emergency Department Note ---
Entered by Margarita Eddy acting as a scribe for ED Provider Note Name: YARIEL VALDEZ Age: 84 Arrives Via: Ambulance Informant: Patient, Family, EMS CC: Syncope HPI: [id number] arrives for evaluation of syncope. The patient's family states that the they were at a musical in [facility] this evening when the patient suddenly experienced a syncopal episode towards the end of the musical while sitting down. Family reports that the patient complained of feeling flushed, hot, and nauseated before passing out. The patient admits that she does not remember the episode nor does she remember the end of the musical. Family states that she was down for a few minutes and breathing the entire time when a bystander laid her down and elevated her feet. She shortly regained consciousness after this. EMS was called and report a BP over 200 on scene. The patient's family includes that she experienced a similar episode about 2 weeks ago but they are unsure why she passed out. Additionally the patient has a history of recurrent falls including one in June 2019 where she fell onto her face and fractured several bones. The patient also adds that she was experiencing an intermittent headache today. She took extra strength Tylenol with some relief and admits that it felt like any usual headache she has experienced in the past. She admits that her headache is now resolved. Of note, she has recently been started on several new medications and family reports that she has been increasingly slow and tired over the past few weeks. She denies diarrhea, abdominal pain, shortness of breath, chest pain, urinary frequency, and dysuria. The patient and her family offer no further concerns at this time. ROS: See above HPI for pertinent positives & negatives. A total of 10 systems reviewed and were otherwise negative. Past Medical History:HTN, hypothyroidism, recurrent falls, aortic valve sclerosis, chronic hoarseness, Sjogren's syndrome Past Surgical History:Lobectomy, hysterectomy Family History:Heart Disease and cardiac stent (sister), AAA and MS (grandmother) Social History:No ETOH, non-smoker, no drugs Home Medications:See Below Allergies:Adhesive, enalaprilat, Sulfa, atorvastatin Vitals: * BP: 190/117 * Pulse: 78 * Resp: 16 * Temp: 36.7 C * O2 Sat: 98 on RA Physical Exam: GENERAL: Patient is elderly and frail appearing and in no acute distress. EYES: No scleral icterus, unremarkable pupils. ENT: Mucous membranes dry, dehydrated appearing, no nasal congestion. NECK: No masses appreciated, nomeningismus, trachea is midline. RESPIRATORY: No dyspnea. Clear to auscultation and equal bilaterally. No wheeze, no rhonchi. CARDIOVASCULAR: Regular rate and rhythm.No murmurs, rubs, gallops appreciated. GASTROINTESTINAL: Abdomen soft, non-tender, no peritonitis.Bowel sounds positive.No masses appreciated. BACK: No midline tenderness, no CVA tenderness EXTREMITIES: Normal motion all extremities, no cyanosis, no edema. NEUROLOGIC: Alert and oriented, no acute motor or sensory deficits, no focal weakness, cranial nerves grossly intact. Hoarse voice. GCS 15. SKIN: No rash, no jaundice, no diaphoresis. ED Course: Prior Medical Record, Triage/Nursing Notes, Medications, Allergies reviewed by Me Vital Signs: reviewed and remarkable for HTN Labs:Reviewed and remarkable for hyponatremia, elevated TSH Interventions: Saline lock, nss bolus 500mL IV, Labetalol 10mg IV Imaging:X ray results are stated below per my interpretation: Chest: 1 view: No infiltrate, no effusion, normal cardiac border. [facility] Radiologist interpretation reviewed by me: CT Head no acute findings EKG:Per My Interpretation: Indication Syncope: NSR 77 bpm, qtc 430. No Ectopy. No Ischemia. Compared to EKG 06/20/19, no significant changes. Consults:Dr Santillan [place] Hospitalist Reassessments/Times: 2317: Past medical records reviewed. The patient was evaluated in room B07. A complete history and physical exam was performed. 0007: I spoke to Dr. Santillan, [facility] Hospitalist who will further evaluate the patient. 0012: I checked on the patient and updated her and her family on plan to admit. She states that she is feeling better and her BP is improving. The patient verbally expressed understanding and agreement of the treatment plan. The patient will be evaluated for further treatment. Blood pressure:Elevated - Further management by Hospitalist. Disposition:Admitted as Inpatient under the care of Dr. Santillan. Condition: Good.Disposition: Hospital. Prescriptions:None. Differentials:Differential: Vaso-vagal, Intracerebral Event, Neurologic, Infectious, Volume Deficiency, Hypoglycemia, Electrolyte Abnormality, Cardiac Source, Toxicologic, amongst other pathologies entertained. Medical Decision Makin yr old female with history Sjogren's, HTN, Hypothryoid amongst others arrives following a several minute syncopal event without need for cpr and gradually return to baseline. She is dehydrated appearing on exam, is hypertensive and otherwise looks well. She was given some labetalol for HTN with improvement. She was found to be significantly hyponatremic and given NSS bolus. She has elevated TSH, but wnl T4, though I suspect that given increasing TSH last few months she likely is somewhat hypothyroid which given chronic fatigue and feeling cold may be symptoms. Syncope unclear cause with normal CT head, normal EKG, no evidence PE/Dissection, no evidence infection. Will come in for furhter management of these issues. She is not septic and is not in any distress at time of hospitalization. Impression: Acute hyponatremia Syncope Hypertensive Dehydration Hypothyroidism The scribe's documentation has been prepared under my direction and personally reviewed by me in its entirety. I confirm that the note above accurately reflects all work, treatment, procedures, and medical decision making performed by me. 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) Mixed hyperlipidemia Monoclonal gammopathy of undetermined significance (Chronic) Osteoarthritis Osteoporosis (Chronic) Pulmonary nodule (Chronic) Rotator cuff tear, left (Resolved) Sensorineural hearing loss (SNHL) of both ears Sensorineural hearing loss (SNHL) of left ear with restricted hearing of right ear (Chronic) Situational anxiety (Chronic) Sjogren's syndrome (Chronic) Spinal stenosis Trigeminal neuralgia RIGHT Trigeminal neuralgia (Chronic) Unsteady gait Vocal cord paralysis (Chronic) Surgical History History of adenoidectomy History of bladder surgery BLADDER TACK History of colonoscopy History of hysterectomy (Inactive) History of lumpectomy (Inactive) History of throat surgery THURNWALDT CYST BENIGN History of tonsillectomy History of tooth extraction History of total abdominal hysterectomy and bilateral salpingo-oophorectomy Family History Son Family history of diabetes mellitus Father Cancer Sister Cancer Breast cancer Heart disease H/O heart artery stent Mother Myocardial infarction Grandmother AAA (abdominal aortic aneurysm) Myocardial infarction Denies family history of Ovarian cancer Prostate cancer Colorectal cancer Social History Preferred Language: Wolof Communication Ability: Effective Web Sizer Required: No Beliefs That Will Affect Care: None marital status: Current Living Situation: Spouse current occupational status: retired Feels Safe at Home: Yes Smoking Status: Never smoker Second Hand Exposure: No ; Hx Alcohol Use: No Hx Substance Use: No caffeine: Yes Dental Care, Regularly: No Physical Activity Frequency: Does not Exercise Seatbelt Use: always Sunscreen Use: Yes Results & Data Vital Signs Vital Signs - 24 hr 09/13/19 23:06 09/13/19 23:08 09/13/19 23:10 Temperature 36.7 C Temperature Source Oral Pulse Rate 79 80 78 Pulse Rate from SpO2 Sensor 80 81 Respiratory Rate 15 18 16 Respiratory Effort / Characteristics Non-Labored Respiratory Depth Normal Blood Pressure 190/117 H 190/117 H Blood Pressure Mean 135 141 Pulse Oximetry 98 98 98 Oxygen Delivery Method Room Air Sepsis Recent Fever Within 48 Hours No Sepsis Action Taken by Nursing No Action Required 09/13/19 23:21 09/13/19 23:30 09/13/19 23:39 Temperature Temperature Source Pulse Rate 89 78 78 Pulse Rate from SpO2 Sensor Respiratory Rate 18 17 17 Respiratory Effort / Characteristics Respiratory Depth Blood Pressure 186/100 H Blood Pressure Mean 121 Pulse Oximetry Oxygen Delivery Method Sepsis Recent Fever Within 48 Hours Sepsis Action Taken by Nursing 09/13/19 23:42 09/13/19 23:45 09/14/19 00:03 Temperature Temperature Source Pulse Rate 74 69 75 Pulse Rate from SpO2 Sensor Respiratory Rate 22 22 18 Respiratory Effort / Characteristics Respiratory Depth Blood Pressure 170/79 H Blood Pressure Mean 117 Pulse Oximetry Oxygen Delivery Method Sepsis Recent Fever Within 48 Hours Sepsis Action Taken by Nursing 09/14/19 00:05 09/14/19 00:15 09/14/19 00:30 Temperature Temperature Source Pulse Rate 73 72 80 Pulse Rate from SpO2 Sensor Respiratory Rate 16 20 20 Respiratory Effort / Characteristics Respiratory Depth Blood Pressure 191/79 H 204/85 H Blood Pressure Mean 118 106 Pulse Oximetry Oxygen Delivery Method Sepsis Recent Fever Within 48 Hours Sepsis Action Taken by Nursing 09/14/19 00:31 09/14/19 00:38 Temperature Temperature Source Pulse Rate 77 76 Pulse Rate from SpO2 Sensor Respiratory Rate 21 20 Respiratory Effort / Characteristics Respiratory Depth Blood Pressure 174/116 H Blood Pressure Mean 133 Pulse Oximetry Oxygen Delivery Method Sepsis Recent Fever Within 48 Hours Sepsis Action Taken by Nursing Laboratory Data Result diagrams: 09/13/19 23:00 09/14/19 02:00 Lab Results 09/13/19 09/13/19 09/13/19 Range/Units 23:00 23:00 23:00 WBC 7.73 (4.8-10.8) K/uL RBC 3.69 L (4.2-5.4) M/uL Hgb 11.5 L (12.0-16.0) g/dL Hct 33.1 L (37-47) % MCV 89.7 (80-100) fL MCH 31.2 (25-34) pg MCHC 34.7 (32-36) g/dL RDW Std Deviation 40.9 (36.4-46.3) fL RDW Coeff of Neto 12.5 (11.5-14.5) % Plt Count 257 (130-400) K/uL MPV 8.9 (7.4-10.4) fL Immature Gran % (Auto) 0.3 % Neut % (Auto) 56.7 % Lymph % (Auto) 31.4 % Bureau % (Auto) 8.5 % Eos % (Auto) 2.8 % Baso % (Auto) 0.3 % Immature Gran # (Auto) 0.02 (0.00-0.02) K/uL Neut # (Auto) 4.38 (1.4-6.5) K/uL Lymph # (Auto) 2.43 (1.2-3.4) K/uL Bureau # (Auto) 0.66 H (0.11-0.59) K/uL Eos # (Auto) 0.22 (0-0.5) K/uL Baso # (Auto) 0.02 (0-0.2) K/uL Sodium 125 L (136-145) mmol/L Potassium 4.3 (3.5-5.1) mmol/L Chloride 93 L (98-107) mmol/L Carbon Dioxide 25 (21-32) mmol/L Anion Gap 7.0 (3-11) BUN 23 H (7-18) mg/dl Creatinine 1.10 (0.6-1.2) mg/dl Est Cr Clr Drug Dosing 27.3 ml/min Est GFR ( Amer) 53.4 Est GFR (Non-Af Amer) 46.1 BUN/Creatinine Ratio 20.7 H (10-20) Glucose 136 H (70-99) mg/dl Osmolality (280-300) mOsm/kg Calcium 9.3 (8.5-10.1) mg/dl Magnesium 1.8 (1.8-2.4) mg/dl Troponin I < 0.015 (0-0.045) ng/ml TSH 16.400 H (0.300-4.500) uIu/ml Free T4 0.82 (0.8-1.6) ng/dl Urine Color Yellow Urine Appearance Clear (Clear) Urine pH 7.5 (4.5-7.5) Ur Specific [place] 1.013 (1.000-1.030) Urine Protein 3+ H (Negative) Urine Glucose (UA) Negative (Negative) Urine Ketones Negative (Negative) Urine Blood Negative (Negative) Urine Nitrite Negative (Negative) Urine Bilirubin Negative (Negative) Urine Urobilinogen Negative (Negative) Ur Leukocyte Esterase Negative (Negative) Urine WBC (Auto) 1-5 (0-5) /hpf Urine RBC (Auto) 0-4 (0-4) /hpf U Hyaline Cast (Auto) 1-5 (0-5) /lpf U Epithel Cells (Auto) 10-20 H (0-5) /lpf Urine Bacteria (Auto) Negative (Negative) 09/13/19 Range/Units 23:00 WBC (4.8-10.8) K/uL RBC (4.2-5.4) M/uL Hgb (12.0-16.0) g/dL Hct (37-47) % MCV (80-100) fL MCH (25-34) pg MCHC (32-36) g/dL RDW Std Deviation (36.4-46.3) fL RDW Coeff of Neto (11.5-14.5) % Plt Count (130-400) K/uL MPV (7.4-10.4) fL Immature Gran % (Auto) % Neut % (Auto) % Lymph % (Auto) % Bureau % (Auto) % Eos % (Auto) % Baso % (Auto) % Immature Gran # (Auto) (0.00-0.02) K/uL Neut # (Auto) (1.4-6.5) K/uL Lymph # (Auto) (1.2-3.4) K/uL Bureau # (Auto) (0.11-0.59) K/uL Eos # (Auto) (0-0.5) K/uL Baso # (Auto) (0-0.2) K/uL Sodium (136-145) mmol/L Potassium (3.5-5.1) mmol/L Chloride (98-107) mmol/L Carbon Dioxide (21-32) mmol/L Anion Gap (3-11) BUN (7-18) mg/dl Creatinine (0.6-1.2) mg/dl Est Cr Clr Drug Dosing ml/min Est GFR ( Amer) Est GFR (Non-Af Amer) BUN/Creatinine Ratio (10-20) Glucose (70-99) mg/dl Osmolality 271 L (280-300) mOsm/kg Calcium (8.5-10.1) mg/dl Magnesium (1.8-2.4) mg/dl Troponin I (0-0.045) ng/ml TSH (0.300-4.500) uIu/ml Free T4 (0.8-1.6) ng/dl Urine Color Urine Appearance (Clear) Urine pH (4.5-7.5) Ur Specific Green[place] (1.000-1.030) Urine Protein (Negative) Urine Glucose (UA) (Negative) Urine Ketones (Negative) Urine Blood (Negative) Urine Nitrite (Negative) Urine Bilirubin (Negative) Urine Urobilinogen (Negative) Ur Leukocyte Esterase (Negative) Urine WBC (Auto) (0-5) /hpf Urine RBC (Auto) (0-4) /hpf U Hyaline Cast (Auto) (0-5) /lpf U Epithel Cells (Auto) (0-5) /lpf Urine Bacteria (Auto) (Negative) Administered Medications Discontinued Medications Sodium Chloride (Nss 1000ml) 500 mls @ 999 mls/hr IV .Q31M ONE Stop: 09/13/19 23:58 Last Infusion: 09/14/19 00:38 Dose: 0 mls/hr Documented by: [id number] Admin: 09/13/19 23:39 Dose: 999 mls/hr Documented by: [id number] Sodium Chloride (Nss 1000ml) 1,000 mls @ 125 mls/hr IV .Q8H ROHIT Stop: 10/14/19 00:14 Last Admin: 09/14/19 00:38 Dose: 125 mls/hr Documented by: [id number] Labetalol HCl (Normodyne) 10 mg IV NOW STA Stop: 09/13/19 23:29 Last Admin: 09/13/19 23:39 Dose: 10 mg Documented by: [id number] Cosigned by: [id number] Discharge Plan Visit Data *Final* Discharge Date/Time: 09/14/19 01:17 Chief Complaint: Syncope Stated Complaint: SYNCOPE ED Provider: Jake Gandhi Discharge Problem: Acute hyponatremia, Hypothyroidism, Dehydration, Syncope, Hypertension Patient Disposition: Admitted As Inpatient Discharge Instructions Interventions: ED Discharge Assessment Last Done: 09/14/19 01:17 Discharge Problem: Hypothyroidism Qualifiers: Hypothyroidism type: unspecified Qualified Code(s): E03.9 - Hypothyroidism, unspecified Syncope Qualifiers: Syncope type: unspecified Qualified Code(s): R55 - Syncope and collapse Hypertension Qualifiers: Hypertension type: essential hypertension Qualified Code(s): I10 - Essential (primary) hypertension The scribe's documentation has been prepared under my direction and personally reviewed by me in its entirety. I confirm that the note above accurately reflects all work, treatment, procedures, and medical decision making performed by me.
--- NOTE | 2019-09-14 05:22 | XRay Report ---
XR chest 1V portable CLINICAL HISTORY: 84 years-old Female presenting with Syncope. TECHNIQUE: Portable upright AP view of the chest was obtained. COMPARISON: 06/19/[address] from 07/23/2018. FINDINGS: Atherosclerosis of the aortic arch. Cardiac silhouette top normal in size. Vague reticulonodular opac ities with an upper lobe predominance slightly increased in prominence from prior. Lungs may be mildl y hyperinflated. No large effusion or pneumothorax. Degenerative changes of the thoracic spine. Upper abdomen normal. IMPRESSION: 1. Slight interval increase in reticulonodular opacities in the apices since 2017. This may relate t o a chronic inflammatory or infectious process with apical pleural parenchymal scarring. This was shawna dent on prior chest CT. 2. No other new focal infiltrate. ACT 112: Negative or not required by law. Electronically signed by: Clement Jacobo M.D. 09/14/2019 5:20 AM
--- NOTE | 2019-09-14 05:53 | CT Scan Report ---
CT head/brain wo con CLINICAL HISTORY: 84 years-old Female presenting with syncope, headache. TECHNIQUE: Multidetector CT imaging of the head was performed without the use of intravenous contrast . IV contrast: None. One or more dose lowering techniques were used consistent with the principles of ALARA (as low as reasonably achievable), including automatic exposure control, mA or kV adjustment t o individual patient size, and/or use of iterative reconstruction. COMPARISON: 06/20/2019. CT DOSE (mGy.cm): The estimated cumulative dose is 614.27 mGy.cm. FINDINGS: Bowling Alley Mechanic topogram: The patient is edentulous. Ventricles and sulci normal in size. No hemorrhage. Brain parenchyma normal in appearance with preser leslie cao-white differentiation. No acute territorial infarct. No mass effect or midline shift. No ext ra-axial fluid collection. Paranasal sinuses and mastoid air cells clear. Calvarium intact. Absent na tive lenses. IMPRESSION: 1. No acute intracranial abnormality. ACT 112: Negative or not required by law. Electronically signed by: Clement Jacobo M.D. 09/14/2019 5:52 AM
[2019-09-14] MEDS ORDERED: LEVOTHYROXINE SODIUM 88 MCG TABLET PO SCH (06:30)
[2019-09-14] MEDS: ASPIRIN 81 MG ECTAB PO SCH (07:37)
[2019-09-14] MEDS: AMLODIPINE BESYLATE 5 MG TAB PO SCH (07:37)
[2019-09-14] MEDS: carBAMazepine 200 MG TABLET PO SCH ×2 (07:38→20:50)
[2019-09-14] MEDS: LOSARTAN POTASSIUM 50 MG TAB PO SCH (07:39)
[2019-09-14] MEDS: carvediloL 3.125 MG TAB PO SCH ×2 (07:39→16:47)
[2019-09-14] MEDS: ENOXAPARIN INJ 30 MG/0.3 ML SYR SQ SCH (07:49)
--- NOTE | 2019-09-14 08:25 | Hospitalist Progress Note ---
Date of Service September 14, 2019 Assessment & Plan (1) Syncope: 84 yo F admitted 09/12 for evaluation of witnessed syncopal episode with preceding prodrome of mild nausea. - etiology: cardiac vs. reflex mediated vs. orthostasis vs. neurogenic vs. hypotension vs. multifactorial * Neurogenic unlikely as patient was without seizure like activity, no prior history of seizure disorder, no post-ictal period, no loss of urinary continence, no tongue laceration on exam. Head CT normal on admission. * Hypotension unlikely as patient has been hypertensive since arrival * Orthostasis unlikely as patient denied dizziness/palpitations. Orthostatic vitals obtained in hospital did not meet criteria * Cardiac possible given suspicion for aortic stenosis on exam. TTE ordered, read pending. EKG on admission showed NSR. Patient without any reported arrhythmias since being on telemetry. During June admission, patient was also on tele without any observed arrhythmias. * Reflex Mediated is possibility given mild prodrome of nausea - patient received fluid replacement in ED, tolerating PO intake at present. (2) Hyponatremia: - sodium level 125 on admission, up to 127 today - on chart review, patient's baseline is ~ 129 - serum osmolarity low at 281 - urine osmolarity low at 186 - urine sodium 55 - patient was hypovolemic on admission exam; IVF given in ED - unlikely to represent acute SIADH, as patient's baseline appears to low ~ 129. - SIADH also unlikely given improvement in sodium level with normal saline - possibly medication related: patient is on carbamazepine for trigeminal neuralgia - continue to monitor (3) Hypothyroidism: - TSH 16 on admission, T4 at low end of normal range at 0.8 - on chart review was elevated to 13 in June admission - will increase levothyroxine from 88 mcg to 100 (4) Hypertension: - BP above goal throughout admission. Sys max 204. Yoko max 117. currently at 162/79 - continue losartan 100mg, norvasc 10mg, coreg 3.125mg BID - prn Labetalol for sys >200 and diastolics > 110 (5) Trigeminal neuralgia: continue Tegretol 100mg BID DVT ppx: Lovenox 30mg, SQ, daily CODE status: Full Diet: heart healthy Dispo: Med/Surg with tele; PT/OT ordered Admission and Anticipated Discharge Date Admission Date: September 14, 2019 Supervising Physician Co-Signing Physician Notes I personally saw and examined the patient. I verified all carranza points and agree with resident Martina Massey MD with the following exceptions and/or additions: None Patient feels concerned about going home without PT and OT assessments therefore will stay overnight to have these tomorrow. Echocardiogram not concerning as cause of syncope. Suspect multifactorial with hyponatremia, dehydration sitting for long period of time. This is similar to her last occasion when she spent a long time in the ER for a mechanical fall and then had a syncopal episode when she eventually got home and entered her house. No concerning findings to suggest stroke and appears back to her baseline at this time. Discussed no need for carotid US with her daughter as this would not be the cause for her syncopal events. Subjective Feeling well today. two family members present at bedside. Reported to nurse she felt dizzy when eating her lunch. Shortly after this sensation spontaneously resolved. On discussion of her syncopal episode last night, she recalls feeling slightly nauseous and warm, but denies a prodrome of dizziness , lightheadedness or palpitations. Family reports her eyes were open but she was unresponsive. After about 5 minutes she returned to her baseline. She did not attempt to stand up before passing out. She endorses feeling fatigued for a period of two weeks preceding this admission. She was hospitalized in June for a mechanical fall. In the days following her June admission, she fell twice. Patient is unable to provide a clear history as to whether she experienced a prodrome before these falls or whether her legs gave way. Her daughter was with her at the time, but daughter is not present in hospital to provide history. Physical Exam Constitutional: WD/WN, vitals as above Eyes: + anicteric sclerae ENMT: external ear and nose normal, oropharynx normal Neck: normal visual inspection and trachea midline Respiratory: normal respiratory effort, lungs clear to auscultation Cardiovascular: Rate/Rhythm: regular rate and regular rhythm Heart Sounds: normal S1, normal S2 and + murmur (systolic ejection, cresendo-decresendo, radiation to neck) Vessels: no carotid bruit Gastrointestinal (Abdomen): normal bowel sounds, soft, nontender, no hepatosplenomegaly Skin: no rashes, warm and dry Neurologic: PERRL, EOMI, accommodation nl, no face palsy, no dysarthria CN's II-XI intact bilaterally; no focal motor deficits Motor/Sensory: no pronator drift Cranial Nerves: normal accommodation, EOM intact bilaterally and no nystagmus Psychiatric: A+Ox3, euthymic affect Results & Data ([facility]) Vital Signs (Past 12 Hours) Vital Signs Temp Pulse Pulse Resp BP BP BP 09/14/19 07:56 36.5 C 73 19 186/83 H 09/14/19 06:52 36.4 C L 76 18 146/76 H 09/14/19 05:38 146/72 H 09/14/19 04:25 36.7 C 71 18 09/14/19 03:39 36.7 C 87 20 178/78 H 09/14/19 01:45 73 09/14/19 01:17 78 18 156/72 H 09/14/19 00:38 76 20 174/116 H 09/14/19 00:31 77 21 09/14/19 00:30 80 20 204/85 H 09/14/19 00:15 72 20 09/14/19 00:05 73 16 191/79 H 09/14/19 00:03 75 18 09/13/19 23:45 69 22 09/13/19 23:42 74 22 170/79 H 09/13/19 23:39 78 17 186/100 H 09/13/19 23:30 78 17 09/13/19 23:21 89 18 09/13/19 23:10 36.7 C 78 16 190/117 H 09/13/19 23:08 80 18 09/13/19 23:06 79 15 190/117 H Pulse Ox 09/14/19 07:56 99 09/14/19 06:52 99 09/14/19 05:38 09/14/19 04:25 96 09/14/19 03:39 95 09/14/19 01:45 09/14/19 01:17 100 09/14/19 00:38 09/14/19 00:31 09/14/19 00:30 09/14/19 00:15 09/14/19 00:05 09/14/19 00:03 09/13/19 23:45 09/13/19 23:42 09/13/19 23:39 09/13/19 23:30 09/13/19 23:21 09/13/19 23:10 98 09/13/19 23:08 98 09/13/19 23:06 98 Resident Activity Tracking Resident Involvement: Resident Care Provided Care Provided: Adult Hospital Medicine (1) Hypothyroidism Hypothyroidism type: unspecified Qualified Code(s): E03.9 - Hypothyroidism, unspecified (2) Syncope Syncope type: unspecified Qualified Code(s): R55 - Syncope and collapse (3) Hypertension Hypertension type: essential hypertension Qualified Code(s): I10 - Essential (primary) hypertension
--- NOTE | 2019-09-14 16:40 | XCELERA ---
[id number] \\[email or web address]\[id number]
[2019-09-14] MEDS ORDERED: LABETALOL HCL IV 5 MG/ML 20ML IV PRN (18:26)
[2019-09-15] MEDS ORDERED: LEVOTHYROXINE SODIUM 100 MCG TABLET PO SCH (06:30)
[2019-09-15] MEDS: LOSARTAN POTASSIUM 50 MG TAB PO SCH (07:12)
[2019-09-15] MEDS: AMLODIPINE BESYLATE 5 MG TAB PO SCH (07:13)
[2019-09-15] MEDS: ASPIRIN 81 MG ECTAB PO SCH (07:13)
[2019-09-15] MEDS: carBAMazepine 200 MG TABLET PO SCH (07:14)
[2019-09-15] MEDS: carvediloL 3.125 MG TAB PO SCH (07:15)
[2019-09-15] MEDS: ENOXAPARIN INJ 30 MG/0.3 ML SYR SQ SCH (07:17)
[2019-09-15 07:37] LABS: BUN Creatinine Ratio 25.9 (10-20); Calcium 9.2 mg/dl (8.5-10.1); Est GFR (African American) 64.6; Est GFR (Non-African American) 55.7; Potassium 4.2 mmol/L (3.5-5.1)
--- NOTE | 2019-09-15 07:37 | Discharge Summary ---
Date of Service September 15, 2019 Admission HPI Per Admitting Provider Kathy Aragon is a pleasant 84yo C female with history of , HTN/HLP/Hypothyroidism presenting after a syncopal event. She was at a play this evening with her family, reports feeling warm and nauseous then woke up on the floor. Her granddaughter at bedside states that patient slumped over in her chair and became unresponsive. No witnessed seizure activity, no bowel/bladder incontinence. Family/bystanders moved her to the ground and elevated her legs. She was out for approximately 4-5 minutes. No post-ictal period reported. Patient denies CP/palpitations/dizziness preceding or following the event. Possibly had one additional syncopal event in the past. Denies exertional CP or SOB. No additional complaints at this time. ER Course: NSS 500mL bolus then 125mL/hr, Labetalol 10mg IV Admission Exam Per Admitting Provider General: patient resting comfortably, NAD, non-toxic in appearance, AA&O x 4 Skin: warm, dry, intact, no rashes or lesions HEENT: NC/AT, PERRL, EOMI, anicteric sclera, conjunctiva without injection, external ear normal to inspection and nontender, nares patent, dry mucus membranes, dentures in place, no oropharyngeal lesions, neck supple, trachea midline, no LAD, no thyromegaly, no JVD Heart: +S1/S2, regular, 3/6 DIANE across precordium to bilateral carotids Lungs: equal air entry bilaterally, no rales/rhonchi/wheezes Abd: +BS, soft, NT/ND, no masses/organomegaly/ascites Ext: warm, 2+ pulses in UE/LE bilaterally, no clubbing/cyanosis or edema Neuro: nonfocal, patient AA&O x 4, speech intact, no facial droop, moving all extremities on command with equal strength 5/5, gait slow and mildly unsteady Principal Diagnosis Syncope Discharge Exam Constitutional WD/WN, vitals as above Eyes + anicteric sclerae ENMT external ear and nose normal, oropharynx normal Neck normal visual inspection and trachea midline Respiratory normal respiratory effort, lungs clear to auscultation Cardiovascular Rate/Rhythm: regular rate and regular rhythm Heart Sounds: normal S1, normal S2 and + murmur (systolic ejection, cresendo- decresendo, radiation to neck) Gastrointestinal (Abdomen) normal bowel sounds, soft, nontender, no hepatosplenomegaly Skin no rashes, warm and dry Neurologic PERRL, EOMI, accommodation nl, no face palsy, no dysarthria CN's II-XI intact bilaterally; no focal motor deficits Motor/Sensory: no pronator drift Cranial Nerves: normal accommodation, EOM intact bilaterally and no nystagmus Psychiatric A+Ox3, euthymic affect Discharge Data Allergies Allergy/AdvReac Type Severity Reaction Status Date / Time adhesive Allergy Mild rash Verified 09/13/19 23:42 enalaprilat [From Vasotec] Allergy Unknown Unknown Verified 09/13/19 23:42 atorvastatin AdvReac Severe Unconscious Verified 09/13/19 23:42 Sulfa (Sulfonamide AdvReac Mild Rash Verified 09/13/19 23:42 Antibiotics) Consultations 09/14/19 00:07 ED Decision to Admit Stat Ordered Studies 09/13/19 23:28 CT head/brain wo con Urgent Hospital Course (1) Syncope: 84 yo F was admitted 09/12 for evaluation of witnessed syncopal episode with preceding prodrome of mild nausea. Mrs. Aragon's family reports two similar episodes in in the past 3 months. As for the etiology, the following differential was considered: cardiac vs. reflex mediated vs. orthostasis vs. neurogenic vs. hypotension vs. multifactorial Neurogenic unlikely as patient was without seizure like activity, no prior history of seizure disorder, no post-ictal period, no loss of urinary continence, no tongue laceration on exam. Head CT normal on admission. EEG not done. Hypotension possible as patient was hypovolemic on exam, however she was hypertensive throughout hospital stay Orthostasis unlikely as patient denied dizziness/palpitations. Orthostatic vitals obtained in hospital did not meet criteria. Cardiac - TTE ordered, showing mild aortic sclerosis, NOT significant stenosis. Normal LV systolic function, EF 65-70%. Mild aortic regurg, moderate mitral regurg with L atrial dilation noted. EKG on admission showed NSR. Patient without any reported arrhythmias on telemetry throughout hospital stay. During June admission, patient was also on tele without any observed arrhythmias. Reflex Mediated is possibility given mild prodrome of nausea Work up did not reveal cause for syncopal episode. Patient and family counseled that this is a common result for patient's with syncope. Suspicion is highest for dehydration vs. vaso-vagal reflex, or a combination of the two. Patient was counseled to attempt to increase hydration. Patient reports being told by her primary care provider "not to drink more than 1 glass of water" with meals in order to keep her sodium level from going lower. Outpatient items to do: No further work-up is recommended. Ideally patient would increase oral hydration, although this may lower sodium level. (2) Hyponatremia: Mrs. Aragon's sodium level was 125 on admission, but increased to 130 by day of discharge. On chart review, patient's baseline is ~ 129, which is possibly medication related (carbamazepine). Work up was done, showing serum osmolarity low at 281, urine osmolarity low at 186, urine sodium at 55. On exam, patient was hypovolemic and treated with IVF (normal saline). Although hypotonic hyponatremia is supportive, clinical exam of hypovolemia, improvement in sodium level with normal saline, and chronically low level per chart review all suggest acute SIADH is not at play. Patient reports being told by her primary care provider "not to drink more than 1 glass of water" with meals in order to keep her sodium level from going lower. Outpatient items to do: consider discontinuing carbamazepine, in the event it responsible for driving sodium level low. patient's syncopal episode thought to be provoked by dehydration - ideally she would not be fluid restricted (3) Hypothyroidism: On admission TSH was elevated to 16 and free T4 was at low end of normal range at 0.82. Chart review revealed TSH was elevated to 13 during her June hospital admission without an incremental increase in her levothyroxine dose in the interim. We increased her levothyroxine from 88 mcg to 100mcg on day of discharge. Outpatient items to do: recheck TSH (4) Hypertension: BP was above goal throughout admission with a Systolic max of 204 and a Diastolic max of 117, requiring one IV dose of labetalol for urgency levels. Mrs. Aragon was treated with her home doses of losartan 100mg, norvasc 10mg, coreg 3.125mg BID. At the time of discharge, her BP was 128/69. Outpatient items to do: consider increasing coreg dose if BP continues to be elevated above goal, as she is on maximum doses of losartan and norvasc (5) Trigeminal neuralgia: continue Tegretol 100mg BID, although this may be causative or contributory to her chronic hyponatremia Outpatient items to do: consider discontinuing carbamazepine, in the event it responsible for driving sodium level low. Potential alternative agents include oxcarbazepine vs. baclofen Total Time Total Time Spent Total Time Spent (In Minutes): see attending attestation Discharge Plan Discharge Items Patient Disposition: Home - Self-Care Reason For Visit: SYNCOPE Discharge Diagnosis: Syncope Activity: Resume your previous activity Non-emergency contact: Primary Care Provider Call non-emergency contact if: you have any medication questions and your symptoms worsen Follow-up/Referrals: Deepti Francois CRNP [Primary Care Provider] - 09/19/19 1:00 pm Diet: Regular Addtl Attending Provider Instructions: You were hospitalized at [facility] for evaluation of a syncopal episode, or passing out. The cause of this episode was never identified by the time of you discharge, although suspicion is highest for dehydration, which results in less blood flow to the brain. A chest x ray was done in the emergency room, which showed no active disease. A cat scan of your head was done which showed no abnormalities. Your heart was monitored and showed normal rate and rhythm. An echocardiogram, or ultrasound of your heart was done, which showed normal pumping function without aortic value stenosis, or constriction. As we discussed, often times we do not find an explanation for fainting episodes while patients are in the hospital. Your thyroid gland was found to be underactive. We increased your dose of le vothyroxine from 88mcg to 100mcg. You should have your thyroid recheck by your primary care doctor since your medication dose has been changed. Your sodium level was low in the hospital. This seems to be a chronic, or longstanding problem. It may be a side effect from your carbamazepine, which you take for facial pain, or trigeminal neuralgia. Your sodium level increased throughout your hospital stay, although never reached normal by the time fo discharge. Please follow up with your primary care provider and discuss trying an alternative medication for your facial pain. Your blood pressure was elevated throughout your hospital stay. Please continue to take all of blood pressure medications you were using before you came to the hospital. We recommend you follow up with your primary care provider within one week. Pending Studies at Discharge: No Stand-Alone Forms: My [facility], Smoking Cessation Medications and DC Order Prescriptions: New levothyroxine 100 mcg capsule 100 mcg PO DAILY Qty: 30 RF: 3 Continued losartan 100 mg tablet 100 mg PO DAILY Qty: 90 RF: 1 omega-3 acid ethyl esters 1 gram capsule 1 cap PO DAILY RF: 0 amlodipine 10 mg tablet 10 mg PO DAILY Qty: 90 RF: 3 buspirone 5 mg tablet 5 mg PO BID PRN (Reason: anxiety) Qty: 180 RF: 3 carbamazepine 200 mg tablet 100 mg PO BID Qty: 90 RF: 3 aspirin 81 mg Tablet,Delayed Release (Dr/Ec) 81 mg PO QAM RF: 0 cholecalciferol (vitamin D3) [Vitamin D3] 1,000 unit Tablet 1,000 unit PO QAM RF: 0 PreserVision AREDS 7,160-113-100 [id number] Tablet 1 tab PO QAM RF: 0 Centrum Silver 0.4-300-250 mg-mcg-mcg Tablet 1 tab PO DAILY RF: 0 carvedilol 3.125 mg tablet 3.125 mg PO BIDM RF: 0 Discontinued levothyroxine 88 mcg tablet 88 mcg PO QAM Qty: 90 RF: 1 Discharge Orders: Discharge Order (Routine); Ordered 09/15/19 Ordered By: Martina Massey Admission Data Admit Date/Time: 09/14/19 00:49 Attending Provider: Ulises Yip Admit Provider: Natasha Santillan Primary Care Provider: Deepti Francios Other Providers: Ulises Ypi. Other Interventions: Discharge Summary Assessment (RN) Last Done: 09/15/19 12:09 DC Date/Time DO NOT enter until pt leaves facility: 09/15/19 13:30 Supervising Physician Co-Signing Physician Notes I personally saw and examined the patient. I verified all carranza points and agree with Resident Physician Martina Massey MD with the following exceptions and/or additions: None Suspect cause of syncopal episode due to prolonged sitting, dehydration, possible moderate hyponatremia contributing. She had a quick recovery back to her baseline. No change to carbamazepine was made but suspect this medication is contributing towards her hyponatremia the most and recommended she discuss with her PCP possible switching to another medication to manage her trigeminal neuralgia. Total Time spent spent independent of resident: 35 minutes, 50 percent of that time is spent discussing with the patient and family the diagnosis, prognosis, risk and benefits, instructions for management, and education. Resident Activity Tracking Resident Involvement: Resident Care Provided Care Provided: Adult [facility]
--- NOTE | 2019-09-16 12:14 | Electrocardiogram Report ---
Test Reason : Blood Pressure : / mmHG Vent. Rate : 077 BPM Atrial Rate : 077 BPM P-R Int : 194 ms QRS Dur : 084 ms QT Int : 380 ms P-R-T Axes : 078 027 077 degrees QTc Int : 430 ms Poor data quality, interpretation may be adversely affected Normal sinus rhythm Normal ECG When compared with ECG of 20-JUN-2019 23:30, No significant change was found Confirmed by Pan Hill ([id number]) on 09/16/2019 12:14:06 PM Referred By: REFERRED SELF Confirmed By:Pan Hill
== END 2019-09-15 13:30 | disposition home or self-care (01) | DRG 312 ==
LOC: ED 23:01 → SUATTDRO 09-14 00:49 → 2W 09-14 00:49

== ENCOUNTER 2020-07-05 04:43 | Inpatient (IN) ==
--- NOTE | 2020-07-05 05:10 | Emergency Department Note ---
History of Present Illness General Chief complaint: Urinary Symptoms Stated complaint: UTI Time Seen by Provider: 07/05/20 04:53 Source: patient Mode of arrival: wheelchair Limitations: no limitations History of Present Illness Provider complaint: weak, nauseated, abd pain Onset (ago): day(s) 3 Location: abdomen Radiation: non-radiation Severity: moderate Pain Consistency: + colicky Maximum Pain Intensity: 4 Quality: + aching Relieved By: + none Exacerbated By: + none Associated symptoms: + loss of appetite, + malaise and + nausea/vomiting; no chest pain, no cough, no fever/chills, no headaches and no shortness of breath Treatments prior to arrival: none This is an 85-year-old female presents the emergency department complaining of worsening weakness, malaise, nausea, abdominal pain, which she associates with urinary symptoms also. Patient states she has urinary frequency, however is only passing a small amount. Patient states she first began having urinary symptoms on Eveline maeve, and her urine was checked by her family doctor and she was told she had an infection and was started on Cipro 500 mg twice daily. Patient states since that time she has not felt better, and otherwise has felt worse. Patient describes decreased oral intake, nausea without vomiting, and persistent lower abdominal pain. Patient denies any back pain, fevers or ch ills. Patient denies any change in her bowel movements. On review of the culture, urine specimen appeared contaminated with skin kayla no other organisms were identified. Patient does have a prior history of UTIs although states she does not get them frequently. Patient has previously had pyelonephritis. Patient denies any other history of kidney stone. Patient states she does see a kidney specialist, but was told her kidney function was fine. Patient denies any other cough or cold symptoms, known sick contacts, or exposure to coronavirus. Pt seen during a time of high acuity and national emergency pandemic while wearing PPE. Home Medications Medication Instructions Recorded Confirmed Type PreserVision AREDS 1 tab PO QAM 10/12/18 07/05/20 History aspirin 81 mg PO QAM 10/12/18 07/05/20 History cholecalciferol (vitamin D3) 1,000 unit PO QAM 10/12/18 07/05/20 History [Vitamin D3] omega-3 acid ethyl esters 1 gram 1 cap PO DAILY cap 02/15/19 07/05/20 History capsule Centrum Silver 1 tab PO DAILY 06/21/19 07/05/20 History losartan 100 mg tablet 100 mg PO DAILY #90 tab 12/10/19 07/05/20 Rx amlodipine 5 mg tablet 5 mg PO DAILY #90 tab 02/24/20 07/05/20 Rx carvedilol 6.25 mg tablet 6.25 mg PO BID #180 tab 04/23/20 07/05/20 Rx levothyroxine 137 mcg capsule 137 mcg PO DAILY #90 cap 04/23/20 07/05/20 Rx buspirone 5 mg tablet 5 mg PO .COMPLEX PRN #180 tab 05/07/20 07/05/20 Rx ciprofloxacin HCl 500 mg tablet 500 mg PO BID #14 tab 07/02/20 07/05/20 Rx duloxetine 20 mg PO DAILY 07/05/20 07/05/20 History mirabegron [Myrbetriq] 25 mg PO DAILY 07/05/20 07/05/20 History Allergies Allergy/AdvReac Type Severity Reaction Status Date / Time adhesive Allergy Mild rash Verified 07/05/20 05:39 enalaprilat [From Vasotec] Allergy Unknown Unknown Verified 07/05/20 05:39 atorvastatin AdvReac Severe Unconscious Verified 07/05/20 05:39 Sulfa (Sulfonamide AdvReac Mild Rash Verified 07/05/20 05:39 Antibiotics) Past Med/Surg History Medical History (Updated 07/05/20 @ 23:43 by Sophie Cosme DO) Benign neoplasm of colon Cardiac murmur Cervical lymphadenopathy Chronic hoarseness Claustrophobia GERD (gastroesophageal reflux disease) Hyperlipidemia HX OF IBS (irritable bowel syndrome) Increased urinary frequency Macular degeneration Mixed hyperlipidemia Osteoarthritis Rotator cuff tear, left Sensorineural hearing loss (SNHL) of both ears Spinal stenosis Trigeminal neuralgia RIGHT Unsteady gait Surgical History History of adenoidectomy History of bladder surgery BLADDER TACK History of colonoscopy History of hysterectomy History of lumpectomy History of throat surgery THURNWALDT CYST BENIGN History of tonsillectomy History of tooth extraction History of total abdominal hysterectomy and bilateral salpingo-oophorectomy Family History Son Family history of diabetes mellitus Father Cancer Sister Cancer Breast cancer Heart disease H/O heart artery stent Mother Myocardial infarction Grandmother AAA (abdominal aortic aneurysm) Myocardial infarction Denies family history of Ovarian cancer Prostate cancer Colorectal cancer Social History Smoking Status: Never smoker Second Hand Exposure: No; Hx Alcohol Use: No Hx Substance Use: No Preferred Language: [place] Communication Ability: Effective Tank Tester Required: No Beliefs That Will Affect Care: None marital status: Current Living Situation: Spouse current occupational status: retired Other Information That Helps Us Care for You: No Feels Safe at Home: Yes Safety Concerns: Feels Safe At This Time caffeine: Yes Dental Care, Regularly: No Physical Activity Frequency: Does not Exercise Seatbelt Use: always Sunscreen Use: Yes Assistive Devices: Denture - Upper, Denture - Lower and Glasses Review of Systems See HPI for pertinent positives & negatives. and A total of 10 systems reviewed and were otherwise negative Physical Exam Vital Signs Vital Signs - 24 hr 07/05/20 04:51 07/05/20 06:27 07/05/20 06:29 Temperature 36.7 C Temperature Source Oral Pulse Rate 71 73 70 Pulse Rate [Apical] Pulse Rate from SpO2 Sensor 73 70 Pulse Rhythm [Apical] Respiratory Rate 16 18 18 Respiratory Effort / Characteristics Respiratory Depth Blood Pressure 179/92 H 180/71 H Blood Pressure [Right Arm] Blood Pressure Mean 121 101 Blood Pressure Mean [Right Arm] Blood Pressure Position [Right Arm] Pulse Oximetry 100 98 97 Oxygen Delivery Method Sepsis Recent Fever Within 48 Hours No Sepsis New/Unexplained Change in Mental Status No Sepsis Action Taken by Nursing No Action Required 07/05/20 06:30 07/05/20 06:40 07/05/20 06:50 Temperature Temperature Source Pulse Rate 70 79 72 Pulse Rate [Apical] 77 Pulse Rate from SpO2 Sensor 70 78 72 Pulse Rhythm [Apical] Regular Respiratory Rate 17 20 17 Respiratory Effort / Characteristics Non-Labored Spontaneous Respiratory Depth Normal Blood Pressure Blood Pressure [Right Arm] 180/71 H Blood Pressure Mean Blood Pressure Mean [Right Arm] 107 Blood Pressure Position [Right Arm] Pulse Oximetry 98 97 99 Oxygen Delivery Method Room Air Sepsis Recent Fever Within 48 Hours Sepsis New/Unexplained Change in Mental Status Sepsis Action Taken by Nursing 07/05/20 07:00 07/05/20 07:10 07/05/20 07:24 Temperature Temperature Source Pulse Rate 78 76 85 Pulse Rate [Apical] Pulse Rate from SpO2 Sensor 78 77 87 Pulse Rhythm [Apical] Respiratory Rate 22 18 18 Respiratory Effort / Characteristics Respiratory Depth Blood Pressure Blood Pressure [Right Arm] Blood Pressure Mean Blood Pressure Mean [Right Arm] Blood Pressure Position [Right Arm] Pulse Oximetry 98 97 95 Oxygen Delivery Method Sepsis Recent Fever Within 48 Hours Sepsis New/Unexplained Change in Mental Status Sepsis Action Taken by Nursing 07/05/20 07:30 07/05/20 07:40 07/05/20 07:48 Temperature Temperature Source Pulse Rate 74 71 74 Pulse Rate [Apical] 75 Pulse Rate from SpO2 Sensor 74 71 74 Pulse Rhythm [Apical] Respiratory Rate 17 15 18 Respiratory Effort / Characteristics Non-Labored Spontaneous Respiratory Depth Normal Blood Pressure 181/75 H Blood Pressure [Right Arm] 181/75 H Blood Pressure Mean 115 Blood Pressure Mean [Right Arm] 110 Blood Pressure Position [Right Arm] Lying Pulse Oximetry 98 97 97 Oxygen Delivery Method Room Air Sepsis Recent Fever Within 48 Hours Sepsis New/Unexplained Change in Mental Status Sepsis Action Taken by Nursing 07/05/20 07:50 07/05/20 08:00 07/05/20 08:01 Temperature Temperature Source Pulse Rate 79 75 75 Pulse Rate [Apical] Pulse Rate from SpO2 Sensor 77 75 76 Pulse Rhythm [Apical] Respiratory Rate 20 14 16 Respiratory Effort / Characteristics Respiratory Depth Blood Pressure 192/80 H Blood Pressure [Right Arm] Blood Pressure Mean 129 Blood Pressure Mean [Right Arm] Blood Pressure Position [Right Arm] Pulse Oximetry 97 98 98 Oxygen Delivery Method Sepsis Recent Fever Within 48 Hours Sepsis New/Unexplained Change in Mental Status Sepsis Action Taken by Nursing 07/05/20 08:12 07/05/20 08:20 07/05/20 08:30 Temperature Temperature Source Pulse Rate 84 74 71 Pulse Rate [Apical] Pulse Rate from SpO2 Sensor 83 74 71 Pulse Rhythm [Apical] Respiratory Rate 16 20 21 Respiratory Effort / Characteristics Respiratory Depth Blood Pressure 173/77 H Blood Pressure [Right Arm] Blood Pressure Mean 123 Blood Pressure Mean [Right Arm] Blood Pressure Position [Right Arm] Pulse Oximetry 97 97 98 Oxygen Delivery Method Sepsis Recent Fever Within 48 Hours Sepsis New/Unexplained Change in Mental Status Sepsis Action Taken by Nursing 07/05/20 08:31 07/05/20 08:40 07/05/20 08:50 Temperature Temperature Source Pulse Rate 74 72 Pulse Rate [Apical] Pulse Rate from SpO2 Sensor 74 72 76 Pulse Rhythm [Apical] Respiratory Rate 16 20 25 H Respiratory Effort / Characteristics Respiratory Depth Blood Pressure Blood Pressure [Right Arm] Blood Pressure Mean Blood Pressure Mean [Right Arm] Blood Pressure Position [Right Arm] Pulse Oximetry 98 98 99 Oxygen Delivery Method Sepsis Recent Fever Within 48 Hours Sepsis New/Unexplained Change in Mental Status Sepsis Action Taken by Nursing 07/05/20 09:00 07/05/20 09:01 Temperature Temperature Source Pulse Rate 73 72 Pulse Rate [Apical] Pulse Rate from SpO2 Sensor 73 72 Pulse Rhythm [Apical] Respiratory Rate 18 17 Respiratory Effort / Characteristics Respiratory Depth Blood Pressure 193/79 H Blood Pressure [Right Arm] Blood Pressure Mean 112 Blood Pressure Mean [Right Arm] Blood Pressure Position [Right Arm] Pulse Oximetry 99 99 Oxygen Delivery Method Sepsis Recent Fever Within 48 Hours Sepsis New/Unexplained Change in Mental Status Sepsis Action Taken by Nursing GENERAL: alert, elderly and frail appearing, well nourished, no distress, non- toxic EYE EXAM: normal conjunctiva, PERRL and EOM's grossly intact OROPHARYNX: no exudate, no erythema, lips, buccal mucosa, and tongue normal and mucous membranes are moist, chronically hoarse voice per her report NECK: supple, no nuchal rigidity, no adenopathy, non-tender LUNGS: Clear to auscultation. Normal chest wall mechanics, no w/r/r HEART: no murmurs, S1 normal and S2 normal ABDOMEN: abdomen soft, mild lower abdominal discomfort with palpation, normo- active bowel sounds, no masses, no rebound or guarding. BACK: Back is symmetrical on inspection and there is no deformity, no midline tenderness, no CVA tenderness. SKIN: no rashes and no bruising UPPER EXTREMITIES: upper extremities are grossly normal. FROM, nml pulses b/l. LOWER EXTREMITIES: No pitting edema. FROM, nml pulses b/l. NEURO EXAM: Normal sensorium, cranial nerves II-XII grossly intact, normal speech, no gross weakness of arms, no gross weakness of legs. Gross sensation intact. Course Course 0611: Patient and family updated on results at bedside. They do recall being told she had low sodium levels in the past. They are uncertain of the etiology. Administered Medications Amlodipine Besylate (Amlodipine Besylate 5 Mg Tab) 5 mg PO BID ROHIT Stop: 08/04/20 20:59 Last Admin: 07/05/20 20:26 Dose: 5 mg Documented by: [id number] Aspirin (Aspirin 81 Mg Ectab) 81 mg PO QAM [facility] Stop: 08/04/20 12:58 Last Admin: 07/05/20 14:24 Dose: 81 mg Documented by: [id number] Carvedilol (Carvedilol 6.25 Mg Tab) 6.25 mg PO BIDM ROHIT Stop: 08/04/20 12:58 Last Admin: 07/05/20 18:24 Dose: 6.25 mg Documented by: [id number] Admin: 07/05/20 14:24 Dose: 6.25 mg Documented by: [id number] Duloxetine HCl (Duloxetine Hcl 20 Mg Cap) 20 mg PO DAILY ROHIT Stop: 08/04/20 12:58 Last Admin: 07/05/20 14:24 Dose: 20 mg Documented by: [id number] Heparin Sodium (Porcine) (Heparin Sod 5,000 Unit/0.5 Ml Vial) 5,000 units SQ Q12 [facility]OHIT Stop: 08/04/20 20:59 Last Admin: 07/05/20 20:26 Dose: 5,000 units Documented by: [id number] Sodium Chloride (Nss 1000ml) 1,000 mls @ 100 mls/hr IV .Q10H [facility]OHIT Stop: 08/04/20 06:59 Last Admin: 07/05/20 13:52 Dose: 100 mls/hr Documented by: [id number] Infusion: 07/05/20 13:00 Dose: 0 mls/hr Documented by: [id number] Admin: 07/05/20 07:30 Dose: 75 mls/hr Documented by: [id number] Levothyroxine Sodium (Levothyroxine Sodium 137 Mcg Tablet) 137 mcg PO DAILYBB [facility] Stop: 08/04/20 12:58 Last Admin: 07/05/20 14:25 Dose: 137 mcg Documented by: [id number] Losartan Potassium (Losartan Potassium 50 Mg Tab) 100 mg PO DAILY [facility] Stop: 08/04/20 12:58 Last Admin: 07/05/20 14:24 Dose: 100 mg Documented by: [id number] Mirabegron (Mirabegron Er 25 Mg Tab) 25 mg PO DAILY ROHIT Stop: 08/04/20 12:58 Last Admin: 07/05/20 14:23 Dose: 25 mg Documented by: [id number] Discontinued Medications Amlodipine Besylate (Amlodipine Besylate 5 Mg Tab) 5 mg PO DAILY [facility] Stop: 08/04/20 12:58 Last Admin: 07/05/20 14:25 Dose: 5 mg Documented by: [id number] Sodium Chloride (Nss 1000ml) 1,000 mls @ 125 mls/hr IV .Q8H [facility]OHIT Stop: 08/04/20 05:14 Last Infusion: 07/05/20 13:00 Dose: 0 mls/hr Documented by: [id number] Admin: 07/05/20 05:39 Dose: 125 mls/hr Documented by: [id number] Magnesium Sulfate/Dextrose (Magnesium Sulfate / D5w) 1 gm in 100 mls @ 100 mls/hr IV NOW STA Stop: 07/05/20 08:23 Last Infusion: 07/05/20 09:02 Dose: 0 mls/hr Documented by: [id number] Admin: 07/05/20 07:47 Dose: 100 mls/hr Documented by: [id number] Metoprolol Tartrate (Metoprolol Tartrate 1 Mg/Ml Vial) Confirm Administered Dose 5 mg IV .[facility] Stop: 07/05/20 09:49 Last Admin: 07/05/20 11:31 Dose: 5 mg Documented by: [id number] Medical Decision Making Differential Diagnosis Differential Diagnosis includes but is not limited to dehydration, stroke, anemia, hypoglycemia, hyponatremia, hypernatremia, urinary tract infection, pneumonia, bronchitis, sepsis, gastroenteritis, additional abdominal pathology, metabolic abnormalities and infections. Medical Records Attestation: I reviewed the patient's medical records. Home Medications Current Medication List: was personally reviewed by me Laboratory Data Attestation: I reviewed the patient's lab results. Result diagrams: 07/05/20 05:20 07/05/20 21:46 Lab Results 07/05/20 07/05/20 07/05/20 Range/Units 04:58 05:20 05:20 WBC 6.47 (4.8-10.8) K/uL RBC 4.00 L (4.2-5.4) M/uL Hgb 12.0 (12.0-16.0) g/dL Hct 34.9 L (37-47) % MCV 87.3 (80-100) fL MCH 30.0 (25-34) pg MCHC 34.4 (32-36) g/dL RDW Std Deviation 40.5 (36.4-46.3) fL RDW Coeff of [place] 12.6 (11.5-14.5) % Plt Count 248 (130-400) K/uL MPV 8.7 (7.4-10.4) fL Immature Gran % (Auto) 0.8 % Neut % (Auto) 59.5 % Lymph % (Auto) 24.7 % [place] % (Auto) 13.1 % Eos % (Auto) 1.7 % Baso % (Auto) 0.2 % Neut # (Auto) 3.85 (1.4-6.5) K/uL Lymph # (Auto) 1.60 (1.2-3.4) K/uL [place] # (Auto) 0.85 H (0.11-0.59) K/uL Eos # (Auto) 0.11 (0-0.5) K/uL Baso # (Auto) 0.01 (0-0.2) K/uL Immature Gran # (Auto) 0.05 H (0.00-0.02) K/uL PT (9.0-12.0) Seconds INR (0.9-1.1) Sodium (136-145) mmol/L Potassium (3.5-5.1) mmol/L Chloride (98-107) mmol/L Carbon Dioxide (21-32) mmol/L Anion Gap (3-11) BUN (7-18) mg/dl Creatinine (0.6-1.2) mg/dl Est Cr Clr Drug Dosing Est GFR ( Amer) Est GFR (Non-Af Amer) BUN/Creatinine Ratio (10-20) Glucose (70-99) mg/dl Osmolality (280-300) mOsm/kg Calcium (8.5-10.1) mg/dl Magnesium (1.8-2.4) mg/dl Total Bilirubin (0.2-1) mg/dl AST (15-37) U/L ALT (12-78) U/L Alkaline Phosphatase (45-117) U/L Troponin I (0-0.045) ng/ml Total Protein (6.4-8.2) gm/dl Albumin (3.4-5.0) gm/dl Globulin (2.5-4.0) gm/dl Albumin/Globulin Ratio (0.9-2) Lipase (73-393) U/L Procalcitonin < 0.05 (0-0.5) ng/ml Specimen Hemolysis Urine Color Yellow Urine Appearance Clear (Clear) Urine pH 7.5 (4.5-7.5) Ur Specific [place] 1.011 (1.000-1.030) Urine Protein 2+ H (Negative) Urine Glucose (UA) Negative (Negative) Urine Ketones Negative (Negative) Urine Blood Negative (Negative) Urine Nitrite Negative (Negative) Urine Bilirubin Negative (Negative) Urine Urobilinogen Negative (Negative) Ur Leukocyte Esterase Trace H (Negative) Urine WBC (Auto) 1-5 (0-5) /hpf Urine RBC (Auto) 0-4 (0-4) /hpf U Hyaline Cast (Auto) 1-5 (0-5) /lpf U Epithel Cells (Auto) >30 H (0-5) /lpf Urine Bacteria (Auto) Negative (Negative) Urine Osmolality (500-800) mOsm/kg Ur Random Sodium mmol/L SARS-CoV-2 Ag (Rapid) (Negative) 07/05/20 07/05/20 07/05/20 Range/Units 05:20 05:20 05:20 WBC (4.8-10.8) K/uL RBC (4.2-5.4) M/uL Hgb (12.0-16.0) g/dL Hct (37-47) % MCV (80-100) fL MCH (25-34) pg MCHC (32-36) g/dL RDW Std Deviation (36.4-46.3) fL RDW Coeff of [place] (11.5-14.5) % Plt Count (130-400) K/uL MPV (7.4-10.4) fL Immature Gran % (Auto) % Neut % (Auto) % Lymph % (Auto) % [place] % (Auto) % Eos % (Auto) % Baso % (Auto) % Neut # (Auto) (1.4-6.5) K/uL Lymph # (Auto) (1.2-3.4) K/uL [place] # (Auto) (0.11-0.59) K/uL Eos # (Auto) (0-0.5) K/uL Baso # (Auto) (0-0.2) K/uL Immature Gran # (Auto) (0.00-0.02) K/uL PT 11.1 (9.0-12.0) Seconds INR 1.1 (0.9-1.1) Sodium 119 L* (136-145) mmol/L Potassium (3.5-5.1) mmol/L Chloride 85 L (98-107) mmol/L Carbon Dioxide 26 (21-32) mmol/L Anion Gap 5.0 (3-11) BUN 14 (7-18) mg/dl Creatinine 0.87 (0.6-1.2) mg/dl Est Cr Clr Drug Dosing Not Reportable Est GFR ( Amer) 70.4 Est GFR (Non-Af Amer) 60.7 BUN/Creatinine Ratio 16.0 (10-20) Glucose 110 H (70-99) mg/dl Osmolality 253 L (280-300) mOsm/kg Calcium 8.9 (8.5-10.1) mg/dl Magnesium (1.8-2.4) mg/dl Total Bilirubin 0.5 (0.2-1) mg/dl AST (15-37) U/L ALT 29 (12-78) U/L Alkaline Phosphatase 77 (45-117) U/L Troponin I < 0.015 (0-0.045) ng/ml Total Protein 9.4 H (6.4-8.2) gm/dl Albumin 3.5 (3.4-5.0) gm/dl Globulin 5.9 H (2.5-4.0) gm/dl Albumin/Globulin Ratio 0.6 L (0.9-2) Lipase 224 (73-393) U/L Procalcitonin (0-0.5) ng/ml Specimen Hemolysis Urine Color Urine Appearance (Clear) Urine pH (4.5-7.5) Ur Specific [place] (1.000-1.030) Urine Protein (Negative) Urine Glucose (UA) (Negative) Urine Ketones (Negative) Urine Blood (Negative) Urine Nitrite (Negative) Urine Bilirubin (Negative) Urine Urobilinogen (Negative) Ur Leukocyte Esterase (Negative) Urine WBC (Auto) (0-5) /hpf Urine RBC (Auto) (0-4) /hpf U Hyaline Cast (Auto) (0-5) /lpf U Epithel Cells (Auto) (0-5) /lpf Urine Bacteria (Auto) (Negative) Urine Osmolality (500-800) mOsm/kg Ur Random Sodium mmol/L SARS-CoV-2 Ag (Rapid) (Negative) 07/05/20 07/05/20 07/05/20 Range/Units 06:30 06:59 08:50 WBC (4.8-10.8) K/uL RBC (4.2-5.4) M/uL Hgb (12.0-16.0) g/dL Hct (37-47) % MCV (80-100) fL MCH (25-34) pg MCHC (32-36) g/dL RDW Std Deviation (36.4-46.3) fL RDW Coeff of Neto (11.5-14.5) % Plt Count (130-400) K/uL MPV (7.4-10.4) fL Immature Gran % (Auto) % Neut % (Auto) % Lymph % (Auto) % [place] % (Auto) % Eos % (Auto) % Baso % (Auto) % Neut # (Auto) (1.4-6.5) K/uL Lymph # (Auto) (1.2-3.4) K/uL [place] # (Auto) (0.11-0.59) K/uL Eos # (Auto) (0-0.5) K/uL Baso # (Auto) (0-0.2) K/uL Immature Gran # (Auto) (0.00-0.02) K/uL PT (9.0-12.0) Seconds INR (0.9-1.1) Sodium (136-145) mmol/L Potassium 3.9 (3.5-5.1) mmol/L Chloride (98-107) mmol/L Carbon Dioxide (21-32) mmol/L Anion Gap (3-11) BUN (7-18) mg/dl Creatinine (0.6-1.2) mg/dl Est Cr Clr Drug Dosing Est GFR ( Amer) Est GFR (Non-Af Amer) BUN/Creatinine Ratio (10-20) Glucose (70-99) mg/dl Osmolality (280-300) mOsm/kg Calcium (8.5-10.1) mg/dl Magnesium 1.7 L (1.8-2.4) mg/dl Total Bilirubin (0.2-1) mg/dl AST 26 (15-37) U/L ALT (12-78) U/L Alkaline Phosphatase (45-117) U/L Troponin I (0-0.045) ng/ml Total Protein (6.4-8.2) gm/dl Albumin (3.4-5.0) gm/dl Globulin (2.5-4.0) gm/dl Albumin/Globulin Ratio (0.9-2) Lipase (73-393) U/L Procalcitonin (0-0.5) ng/ml Specimen Hemolysis Urine Color Urine Appearance (Clear) Urine pH (4.5-7.5) Ur Specific [place] (1.000-1.030) Urine Protein (Negative) Urine Glucose (UA) (Negative) Urine Ketones (Negative) Urine Blood (Negative) Urine Nitrite (Negative) Urine Bilirubin (Negative) Urine Urobilinogen (Negative) Ur Leukocyte Esterase (Negative) Urine WBC (Auto) (0-5) /hpf Urine RBC (Auto) (0-4) /hpf U Hyaline Cast (Auto) (0-5) /lpf U Epithel Cells (Auto) (0-5) /lpf Urine Bacteria (Auto) (Negative) Urine Osmolality 230 L (500-800) mOsm/kg Ur Random Sodium mmol/L SARS-CoV-2 Ag (Rapid) Negative (Negative) 07/05/20 Range/Units 08:50 WBC (4.8-10.8) K/uL RBC (4.2-5.4) M/uL Hgb (12.0-16.0) g/dL Hct (37-47) % MCV (80-100) fL MCH (25-34) pg MCHC (32-36) g/dL RDW Std Deviation (36.4-46.3) fL RDW Coeff of [place]o (11.5-14.5) % Plt Count (130-400) K/uL MPV (7.4-10.4) fL Immature Gran % (Auto) % Neut % (Auto) % Lymph % (Auto) % [place] % (Auto) % Eos % (Auto) % Baso % (Auto) % Neut # (Auto) (1.4-6.5) K/uL Lymph # (Auto) (1.2-3.4) K/uL [place] # (Auto) (0.11-0.59) K/uL Eos # (Auto) (0-0.5) K/uL Baso # (Auto) (0-0.2) K/uL Immature Gran # (Auto) (0.00-0.02) K/uL PT (9.0-12.0) Seconds INR (0.9-1.1) Sodium (136-145) mmol/L Potassium (3.5-5.1) mmol/L Chloride (98-107) mmol/L Carbon Dioxide (21-32) mmol/L Anion Gap (3-11) BUN (7-18) mg/dl Creatinine (0.6-1.2) mg/dl Est Cr Clr Drug Dosing Est GFR ( Amer) Est GFR (Non-Af Amer) BUN/Creatinine Ratio (10-20) Glucose (70-99) mg/dl Osmolality (280-300) mOsm/kg Calcium (8.5-10.1) mg/dl Magnesium (1.8-2.4) mg/dl Total Bilirubin (0.2-1) mg/dl AST (15-37) U/L ALT (12-78) U/L Alkaline Phosphatase (45-117) U/L Troponin I (0-0.045) ng/ml Total Protein (6.4-8.2) gm/dl Albumin (3.4-5.0) gm/dl Globulin (2.5-4.0) gm/dl Albumin/Globulin Ratio (0.9-2) Lipase (73-393) U/L Procalcitonin (0-0.5) ng/ml Specimen Hemolysis Urine Color Urine Appearance (Clear) Urine pH (4.5-7.5) Ur Specific [place] (1.000-1.030) Urine Protein (Negative) Urine Glucose (UA) (Negative) Urine Ketones (Negative) Urine Blood (Negative) Urine Nitrite (Negative) Urine Bilirubin (Negative) Urine Urobilinogen (Negative) Ur Leukocyte Esterase (Negative) Urine WBC (Auto) (0-5) /hpf Urine RBC (Auto) (0-4) /hpf U Hyaline Cast (Auto) (0-5) /lpf U Epithel Cells (Auto) (0-5) /lpf Urine Bacteria (Auto) (Negative) Urine Osmolality (500-800) mOsm/kg Ur Random Sodium 80 mmol/L SARS-CoV-2 Ag (Rapid) (Negative) Blood Pressure Blood Pressure Findings: Elevated blood pressure Blood Pressure Disposition: further management by hospitalist MAICO Narrative This is an 85-year-old female who presents from home with family due to concern for worsening weakness, nausea, and recent urinary tract infection being treated with ciprofloxacin. Patient and family concern for possible persistent infection versus reaction to the Cipro. They do believe she has taken Cipro previously without any difficulty. They do states she has a history of prior UT Is, as well as some mild kidney dysfunction. Labs are drawn and sent and patient started on IV fluids as family was concerned for dehydration stating she had poor p.o. intake over the last several days also. This was started at a maintenance rate. Patient found to have acute on chronic hyponatremia. In review of the EMR, patient's hyponatremia had been as low as 124 in the past, however today was down to a new low of 119. I did double check potential side effects of Cipro, and did not see hyponatremia listed. Patient's renal function intact, patient's potassium normal and magnesium mildly low. This was repleted while in the emergency room. Patient's IV fluids were slowed even further. Patient was afebrile. At this time I do not suspect persistent infection. On review of EMR, the culture was inconclusive and grew out mostly skin kayla. It is unclear if the patient actually had a urinary tract infection initially. Well the Cipro could have exacerbated patient's weakness, nausea, and poor p.o. intake, I do suspect that the hyponatremia is more likely the contributing cause. I discussed all results with patient and family at bedside. We discussed additional inpatient observation and management, they verbalized understanding and were in agreement. An order was placed for continuous cardiac monitoring. The monitor shows a rate of _70_ with _normal sinus rhythm. Impression & Plan Generalized weakness, Hypertension, Acute hyponatremia, Nausea, Hypomagnesemia Discharge Plan Visit Data Chief Complaint: Urinary Symptoms Stated Complaint: UTI ED Provider: Sophie Cosme Discharge Problem: Generalized weakness, Hypertension, Acute hyponatremia, Nausea, Hypomagnesemia Patient Disposition: Admitted As Inpatient Condition: Good Discharge Instructions Interventions: ED Discharge Assessment Last Done: 07/05/20 12:21 Discharge Problem: Hypertension Qualifiers: Hypertension type: essential hypertension Qualified Code(s): I10 - Essential (primary) hypertension
[2020-07-05] MEDS ORDERED: SODIUM CHLORIDE 0.9% 1000ML 1,000 ML IV SCH (05:15)
[2020-07-05 05:19] LABS: Appearance Urine Clear (Clear); Bacteria Urine Automated Negative (Negative); Bilirubin Urine Negative (Negative); Blood Urine Negative (Negative); Color Urine Yellow; Epithelial Cell Urine Auto >30 /lpf (0-5); Glucose Urine UA Negative (Negative); Ketones Urine Negative (Negative); Leukocyte Esterase Urine Trace (Negative); Nitrite Urine Negative (Negative); RBC Urine Automated 0-4 /hpf (0-4); Specific Gravity Urine 1.011 (1.000-1.030); Urobilinogen Urine Negative (Negative); pH Urine 7.5 (4.5-7.5)
[2020-07-05 05:39] LABS: Basophils # (auto) 0.01 K/uL (0-0.2); Basophils % (auto) 0.2 %; Eosinophils # (auto) 0.11 K/uL (0-0.5); Eosinophils % (auto) 1.7 %; Hematocrit (blood only) 34.9 % (37-47); Immature Granulocytes # (auto) 0.05 K/uL (0.00-0.02); Immature Granulocytes % (auto) 0.8 %; Lymphocytes % (auto) 24.7 %; Mean Corpuscular Hgb Conc 34.4 g/dL (32-36); Mean Corpuscular Volume 87.3 fL (80-100); Mean Platelet Volume 8.7 fL (7.4-10.4); Monocytes # (auto) 0.85 K/uL (0.11-0.59); Monocytes % (auto) 13.1 %; Neutrophils # (auto) 3.85 K/uL (1.4-6.5); Neutrophils % (auto) 59.5 %; Platelet Count 248 K/uL (130-400); RDW Coefficient of Variation 12.6 % (11.5-14.5); RDW Standard Deviation 40.5 fL (36.4-46.3); White Blood Count 6.47 K/uL (4.8-10.8)
[2020-07-05 05:47] LABS: INR 1.1 (0.9-1.1); Prothrombin Time 11.1 Seconds (9.0-12.0)
[2020-07-05 05:52] LABS: Protein Urine 2+ (Negative)
[2020-07-05 05:53] LABS: Sulfosalicylic Acid Urine Positive (Negative)
[2020-07-05 06:05] LABS: Alanine Aminotransferase 29 U/L (12-78); Albumin Globulin Ratio 0.6 (0.9-2); Albumin Level 3.5 gm/dl (3.4-5.0); Alkaline Phosphatase 77 U/L (45-117); Bilirubin,Total 0.5 mg/dl (0.2-1); Blood Urea Nitrogen 14 mg/dl (7-18); Calcium 8.9 mg/dl (8.5-10.1); Carbon Dioxide 26 mmol/L (21-32); Est GFR (African American) 70.4; Est GFR (Non-African American) 60.7; Globulin 5.9 gm/dl (2.5-4.0); Glucose 110 mg/dl (70-99); Lipase 224 U/L (73-393); Total Protein 9.4 gm/dl (6.4-8.2); Troponin I < 0.015 ng/ml (0-0.045)
[2020-07-05 06:14] LABS: Chloride 85 mmol/L (98-107)
[2020-07-05 06:17] LABS: Sodium 119 mmol/L (136-145)
[2020-07-05 07:01] LABS: Magnesium 1.7 mg/dl (1.8-2.4); Potassium 3.9 mmol/L (3.5-5.1)
[2020-07-05] MEDS ORDERED: MAGNESIUM SULFATE / D5W 1 GM/100 ML BAG IV STA (07:24)
[2020-07-05] MEDS: SODIUM CHLORIDE 0.9% 1000ML 1,000 ML IV SCH ×2 (07:30→13:52)
[2020-07-05] MEDS ORDERED: ACETAMINOPHEN 325 MG TAB PO PRN (09:04)
[2020-07-05] MEDS ORDERED: MAGNESIUM HYDROXIDE SUSP 30 ML UDC PO PRN (09:04)
--- NOTE | 2020-07-05 09:18 | History & Physical Report ---
Date of Service July 05, 2020 Assessment & Plan (1) Hyponatremia: Kathy Aragon is an 85 yo female with PMHx that includes HTN, Hypothyroidism, Osteoporosis, MGUS and Anxiety who presented to [facility] ED on 07/05/2020 with urinary symptoms and generalized weakness for 3-4 days. Found to be hyponatremic with Na 119 on admission. 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 (chronically Na ~124-130) - started mIVFs with NSS @100cc/hr - BMP Q6H to monitor for improvement in Na, plan to trend to peak at chronic baseline and then stop IVFs Increased Urinary Frequency - symptoms for several days, started on abx w/o improvement and urine cx was negative for UTI (skin kayla only) - today, UA was yellow/clear with 2+ protein and trace LE, negative for blood/nitrites/bacteria - post-void bladder scan showed >300cc - suspect urinary retention, possibly due to anterior vaginal prolapse vs UTI (less likely) - d/c'd home Ciprofloxacin PO given clean urine culture and persistent symptoms despite abx - urinary lees catheter placed - strict I/Os, monitor urine output Chronic Hypertension - hypertensive to 180s-190s SBP in the ED - did not received AM home BP meds - continue all while hospitalized: - Amlodipine 5mg PO daily - Carvedilol 6.25 mg PO BID - Losartan 100 mg PO daily Hypothyroidism - TSH 1.6 earlier this month - continue home Synthroid 137 mcg PO daily Anxiety - continue home Buspar 5mg PRN and Cymbalta 20 mg PO daily FEN/GI: regular diet, NSS @100cc/hr DVT Prophylaxis: Heparin 5000units SQ Q12H Code Status: Full code Disposition: PCU with tele (2) Increased urinary frequency: (3) Hypertension: (4) Hypothyroidism: (5) Monoclonal gammopathy of undetermined significance: (6) Osteoporosis: History of Present Illness Chief Complaint: urinary symptoms, generalized weakness Primary Care Provider: GAYLA Cesar Kathy Aragon is an 85 yo female with PMHx that includes HTN, Hypothyroidism, Osteoporosis, MGUS and Anxiety who presented to [facility] ED on 07/05/2020 with urinary symptoms and generalized weakness for 3-4 days. Patient reports developing increased urinary frequency ([id number]), incomplete voiding and suprapubic fullness in addition to generalized weakness most pronounced in the lower extremities (became more difficult to ambulate with her walker). Symptoms started ~07/02 and patient saw PCP - was prescribed Ciprofloxacin 500mg PO BID for presumed UTI; of note the final urine culture from 07/02 showed three organisms in low counts (likely skin kayla). The patient reports persistent urinary symptoms as well as worsening weakness, decreased PO intake, nausea and headaches despite abx. Patient denies dysuria, fever/chills, flank pain, cough, vomiting, other abdominal pain/tenderness, or changes in BMs. Patient denies syncope, seizures, mental status changes ( has not noticed any changes, per patient report). Of note the patient reports one hard BM daily, which is chronic for her. Has previous h/o UTIs albeit infrequent and reports h/o pyelonephritis x1 "many years ago". Lives at home with her ; proficient in all ADLs and most iADLs (daughter often helps with grocery shopping) and ambulates well both inside and outside with a walker. Denies previous/current tobacco use, alcohol use, drug use. In the ED the patient was hypertensive to 193/79 but otherwise hemodynamically stable/afebrile. Found to be hyponatremic (Na 119, previously 132 on 06/15) and hypomagnesemic (1.7) - started on NSS @75cc and Mg replenished via 1g IV. Allergies Allergy/AdvReac Type Severity Reaction Status Date / Time adhesive Allergy Mild rash Verified 07/05/20 05:39 enalaprilat [From Vasotec] Allergy Unknown Unknown Verified 07/05/20 05:39 atorvastatin AdvReac Severe Unconscious Verified 07/05/20 05:39 Sulfa (Sulfonamide AdvReac Mild Rash Verified 07/05/20 05:39 Antibiotics) Home Medications Medication Instructions Recorded Confirmed Type PreserVision AREDS 1 tab PO QAM 10/12/18 07/05/20 History aspirin 81 mg PO QAM 10/12/18 07/05/20 History cholecalciferol (vitamin D3) 1,000 unit PO QAM 10/12/18 07/05/20 History [Vitamin D3] omega-3 acid ethyl esters 1 gram 1 cap PO DAILY cap 02/15/19 07/05/20 History capsule Centrum Silver 1 tab PO DAILY 06/21/19 07/05/20 History losartan 100 mg tablet 100 mg PO DAILY #90 tab 12/10/19 07/05/20 Rx amlodipine 5 mg tablet 5 mg PO DAILY #90 tab 02/24/20 07/05/20 Rx carvedilol 6.25 mg tablet 6.25 mg PO BID #180 tab 04/23/20 07/05/20 Rx levothyroxine 137 mcg capsule 137 mcg PO DAILY #90 cap 04/23/20 07/05/20 Rx buspirone 5 mg tablet 5 mg PO .COMPLEX PRN #180 tab 05/07/20 07/05/20 Rx ciprofloxacin HCl 500 mg tablet 500 mg PO BID #14 tab 07/02/20 07/05/20 Rx duloxetine 20 mg PO DAILY 07/05/20 07/05/20 History mirabegron [Myrbetriq] 25 mg PO DAILY 07/05/20 07/05/20 History Past Med/Surg History Medical History (Updated 07/05/20 @ 23:43 by Sophie Cosme DO) Benign neoplasm of colon Cardiac murmur Cervical lymphadenopathy Chronic hoarseness Claustrophobia GERD (gastroesophageal reflux disease) Hyperlipidemia HX OF IBS (irritable bowel syndrome) Increased urinary frequency Macular degeneration Mixed hyperlipidemia Osteoarthritis Rotator cuff tear, left Sensorineural hearing loss (SNHL) of both ears Spinal stenosis Trigeminal neuralgia RIGHT Unsteady gait Surgical History History of adenoidectomy History of bladder surgery BLADDER TACK History of colonoscopy History of hysterectomy History of lumpectomy History of throat surgery THURNWALDT CYST BENIGN History of tonsillectomy History of tooth extraction History of total abdominal hysterectomy and bilateral salpingo-oophorectomy Family History Son Family history of diabetes mellitus Father Cancer Sister Cancer Breast cancer Heart disease H/O heart artery stent Mother Myocardial infarction Grandmother AAA (abdominal aortic aneurysm) Myocardial infarction Denies family history of Ovarian cancer Prostate cancer Colorectal cancer Social History Smoking Status: Never smoker Second Hand Exposure: No; Hx Alcohol Use: No Hx Substance Use: No Preferred Language: Mauritanian Communication Ability: Effective Accountant Required: No Beliefs That Will Affect Care: None marital status: Current Living Situation: Spouse current occupational status: retired Other Information That Helps Us Care for You: No Feels Safe at Home: Yes Safety Concerns: Feels Safe At This Time caffeine: Yes Dental Care, Regularly: No Physical Activity Frequency: Does not Exercise Seatbelt Use: always Sunscreen Use: Yes Assistive Devices: Denture - Upper, Denture - Lower and Glasses Review of Systems Constitutional: + weakness; no fever, no chills and no body aches Eyes: no worsening vision Ear, Nose, Mouth, Throat: no hearing loss Respiratory: no cough and no dyspnea Cardiovascular: no chest pain, no palpitations and no edema Gastrointestinal: + nausea and + constipation; no abdominal pain, no vomiting and no diarrhea/loose stools Genitourinary: + difficulty urinating, + urinary frequency, + urinary hesitancy and + urinary urgency; no dysuria and no flank pain Integumentary: no rash Psychiatric: no behavioral changes Hematologic / Lymphatic: no easy bleeding and no easy bruising Physical Exam Constitutional: WD/WN, vitals as above + thin ENMT: dry mucus membranes Respiratory: normal respiratory effort, lungs clear to auscultation Cardiovascular: Rate/Rhythm: regular rate and regular rhythm Heart Sounds: + murmur (2/6 systolic ejection murmur in right upper sternal border) Extremities: no edema Gastrointestinal (Abdomen): Inspection/Auscultation: abdomen normal to inspection and normal bowel sounds; abdomen not distended Percussion/Palpation: + abdomen tender (mild suprapubic tenderness due to patient report of "full bladder") and abdomen soft Musculoskeletal: no cyanosis or clubbing, extremities motor strength 5/5 Skin: no rashes, warm and dry Neurologic: patellar DTR's 2+ bilat, sensation intact and PERRL, EOMI, accommodation nl, no face palsy, no dysarthria Motor/Sensory: no tremor Psychiatric: A+Ox3, euthymic affect Results & Data Results & Data ([facility]) Vital Signs (Past 12 Hours) Vital Signs Temp Pulse Pulse Resp BP BP Pulse Ox 07/05/20 09:01 72 17 99 07/05/20 09:00 73 18 193/79 H 99 07/05/20 08:50 25 H 99 07/05/20 08:40 72 20 98 07/05/20 08:31 74 16 98 07/05/20 08:30 71 21 173/77 H 98 07/05/20 08:20 74 20 97 07/05/20 08:12 84 16 97 07/05/20 08:01 75 16 98 07/05/20 08:00 75 14 192/80 H 98 07/05/20 07:50 79 20 97 07/05/20 07:48 74 75 18 181/75 H 181/75 H 97 07/05/20 07:40 71 15 97 07/05/20 07:30 74 17 98 07/05/20 07:24 85 18 95 07/05/20 07:10 76 18 97 07/05/20 07:00 78 22 98 07/05/20 06:50 72 17 99 07/05/20 06:40 79 77 20 180/71 H 97 07/05/20 06:30 70 17 98 07/05/20 06:29 70 18 180/71 H 97 07/05/20 06:27 73 18 98 07/05/20 04:51 36.7 C 71 16 179/92 H 100 Laboratory Results CBC WNL Na 119, Mg 1.7, BMP otherwise WNL Serum Osmolality: 253 Urine Osmolality: 230 Urine Na: 80 Serum Uric Acid: 3.1 Random Cortisol: 23.77 UA yellow/clear with 2+ protein and trace LE, negative for blood/nitrites/bacteria Code Status & VTE Plan Code Status Full Code VTE Prophylaxis Plan VTE Prophylaxis will be ordered: Yes Supervising Physician Co-Signing Physician Notes Attending Attestation & Admission Note: Pt seen/examined, chart reviewed, admit care plan d/w PGY 1 Dr Jake Navarro. I agree w/ the carranza components of his documentation. 85yo female with h/o chronic, mild hyponatremia and hypothyroidism presents with 3-4 days of decreased PO intake, urinary symptoms concerning for UTI, and simply feeling unwell. Upon presentation today serum Na found to be 119. During the ED course patient reported severe urinary frequency with "dribbles." Bladder scan >350cc which was a PVR. Patient c/o being thirsty during my visit with her. Denied any diarrhea or vomiting. Does not take diuretics. PMH, PSH, allergies, meds, sochx, famhx - reviewed VSS but BPs elevated gen - thin, looks dehydrated, NAD mouth - MM pasty HEENT - hoarse voice neck - no JVD heart - RRR, s1 s2, 2/6 DIANE RUSB lungs - CTA b/l abd - soft, suprapubic region mildly distended, BS+, NT ext - no edema skin - turgor decreased Cr wnl Na 119 Cl low T protein 9.4 cxr, u/a, recent urine cx reviewed COVID neg A/P: 1. acute/chronic hyponatremia; baseline Na low 130s suspect acute component is from hypovolemia from decreased PO intake last 4 days. check Sosm, Usom, Urine Na, uric acid, TSH, cortisol. serial BMP q6h. Agree with gentle NS hydration for now. Chronic component likely SIADH/reset osmostat. 2. urinary retention - place lees. 3. ?UTI - repeat urine cx. Noted that previous urine cx with contamination. 4. uncontrolled HTN - increase amlodipine to 5mg BID. other plans per Dr Navarro. Ulises Buchanan MD Resident Activity Tracking Resident Involvement: Resident Care Provided Care Provided: Adult Hospital Medicine (1) Hypothyroidism Hypothyroidism type: unspecified Qualified Code(s): E03.9 - Hypothyroidism, unspecified (2) Hypertension Hypertension type: essential hypertension Qualified Code(s): I10 - Essential (primary) hypertension
[2020-07-05] MEDS ORDERED: METOPROLOL TARTRATE 1 MG/ML VIAL IV STA (09:27)
[2020-07-05] MEDS ORDERED: METOPROLOL TARTRATE 1 MG/ML VIAL IV ONE (09:48)
[2020-07-05 10:56] LABS: BUN Creatinine Ratio 15.3 (10-20); Calcium 8.5 mg/dl (8.5-10.1); Creatinine Clr Calc Pharmacy 39.4 ml/min; Est GFR (African American) 84.2; Est GFR (Non-African American) 72.7; Potassium 3.7 mmol/L (3.5-5.1); Uric Acid 3.1 mg/dl (2.6-7.2)
[2020-07-05] MEDS ORDERED: busPIRone 5 MG TAB PO PRN (12:59)
[2020-07-05] MEDS ORDERED: amLODIPine BESYLATE 5 MG TAB PO SCH (12:59)
--- NOTE | 2020-07-05 12:59 | Electrocardiogram Report ---
Test Reason : Blood Pressure : / mmHG Vent. Rate : 074 BPM Atrial Rate : 074 BPM P-R Int : 168 ms QRS Dur : 088 ms QT Int : 396 ms P-R-T Axes : 069 017 068 degrees QTc Int : 439 ms Normal sinus rhythm Biatrial enlargement Abnormal ECG When compared with ECG of 13-SEP-2019 23:08, No significant change was found Confirmed by Yuri Santana ([id number]) on 07/05/2020 12:58:59 PM Referred By: REFERRED SELF Confirmed By:Yuri Santana
[2020-07-05] MEDS: MIRABEGRON ER 25 MG TAB PO SCH (14:23)
[2020-07-05] MEDS: ASPIRIN 81 MG ECTAB PO SCH (14:24)
[2020-07-05] MEDS: LOSARTAN POTASSIUM 50 MG TAB PO SCH (14:24)
[2020-07-05] MEDS: DULoxetine HCL 20 MG CAP PO SCH (14:24)
[2020-07-05] MEDS: carvediloL 6.25 MG TAB PO SCH ×2 (14:24→18:24)
[2020-07-05] MEDS: LEVOTHYROXINE SODIUM 137 MCG TABLET PO SCH (14:25)
[2020-07-05 16:32] LABS: BUN Creatinine Ratio 16.5 (10-20); Calcium 8.3 mg/dl (8.5-10.1); Creatinine Clr Calc Pharmacy 37.4 ml/min; Est GFR (African American) 79.1; Est GFR (Non-African American) 68.3; Potassium 3.5 mmol/L (3.5-5.1)
[2020-07-05] MEDS: amLODIPine BESYLATE 5 MG TAB PO SCH (20:26)
[2020-07-05] MEDS: HEPARIN SOD 5,000 UNIT/0.5 ML VIAL SQ SCH (20:26)
[2020-07-05 22:11] LABS: BUN Creatinine Ratio 17.7 (10-20); Calcium 7.9 mg/dl (8.5-10.1); Creatinine Clr Calc Pharmacy 35.6 ml/min; Est GFR (African American) 74.5; Est GFR (Non-African American) 64.3; Potassium 3.4 mmol/L (3.5-5.1)
[2020-07-05] MEDS: NSS + 20MEQ KCL 20 MEQ/1,000 ML BAG IV SCH (23:58)
[2020-07-06 04:10] LABS: Basophils # (auto) 0.01 K/uL (0-0.2); Basophils % (auto) 0.2 %; Eosinophils # (auto) 0.04 K/uL (0-0.5); Eosinophils % (auto) 0.6 %; Hematocrit (blood only) 31.1 % (37-47); Hemoglobin 11.2 g/dL (12.0-16.0); Immature Granulocytes # (auto) 0.02 K/uL (0.00-0.02); Immature Granulocytes % (auto) 0.3 %; Lymphocytes # (auto) 2.02 K/uL (1.2-3.4); Lymphocytes % (auto) 30.3 %; Mean Corpuscular Hemoglobin 30.9 pg (25-34); Mean Corpuscular Volume 85.7 fL (80-100); Mean Platelet Volume 8.8 fL (7.4-10.4); Monocytes # (auto) 0.79 K/uL (0.11-0.59); Monocytes % (auto) 11.9 %; Neutrophils # (auto) 3.78 K/uL (1.4-6.5); Neutrophils % (auto) 56.7 %; Platelet Count 268 K/uL (130-400); RDW Coefficient of Variation 12.5 % (11.5-14.5); Red Blood Count 3.63 M/uL (4.2-5.4); White Blood Count 6.66 K/uL (4.8-10.8)
[2020-07-06 04:29] LABS: BUN Creatinine Ratio 18.8 (10-20); Calcium 8.2 mg/dl (8.5-10.1); Creatinine Clr Calc Pharmacy 43.4 ml/min; Est GFR (African American) 92.4; Est GFR (Non-African American) 79.8; Magnesium 1.9 mg/dl (1.8-2.4); Potassium 3.8 mmol/L (3.5-5.1)
[2020-07-06] MEDS: LEVOTHYROXINE SODIUM 137 MCG TABLET PO SCH (05:44)
--- NOTE | 2020-07-06 06:18 | Billing Data ---
Date of Service July 05, 2020 Coding Level of Care Code 94584 Initial Inpt Care Lvl 3
[2020-07-06] MEDS: NSS + 20MEQ KCL 20 MEQ/1,000 ML BAG IV SCH ×2 (09:12→19:35)
[2020-07-06] MEDS: amLODIPine BESYLATE 5 MG TAB PO SCH ×2 (09:13→20:59)
[2020-07-06] MEDS: ASPIRIN 81 MG ECTAB PO SCH (09:14)
[2020-07-06] MEDS: MIRABEGRON ER 25 MG TAB PO SCH (09:14)
[2020-07-06] MEDS: carvediloL 6.25 MG TAB PO SCH ×2 (09:14→18:42)
[2020-07-06] MEDS: HEPARIN SOD 5,000 UNIT/0.5 ML VIAL SQ SCH ×2 (09:14→21:00)
[2020-07-06] MEDS: LOSARTAN POTASSIUM 50 MG TAB PO SCH (09:14)
[2020-07-06] MEDS: DULoxetine HCL 20 MG CAP PO SCH (09:14)
[2020-07-06] MEDS: CEROVITE ADV FORMULA TAB PO SCH (09:51)
[2020-07-06 12:11] LABS: BUN Creatinine Ratio 18.3 (10-20); Calcium 8.3 mg/dl (8.5-10.1); Creatinine Clr Calc Pharmacy 39.9 ml/min; Est GFR (African American) 85.6; Est GFR (Non-African American) 73.9; Potassium 3.7 mmol/L (3.5-5.1)
--- NOTE | 2020-07-06 16:35 | Hospitalist Progress Note ---
Date of Service July 06, 2020 Assessment & Plan (1) Hyponatremia: Kathy Aragon is an 85 yo female with PMHx that includes HTN, Hypothyroidism, Osteoporosis, MGUS and Anxiety who presented to [facility] ED on 07/05/2020 with urinary symptoms and generalized weakness for 3-4 days. Found to be hyponatremic with Na 119 on admission. Improving well with gentle NSS administration and feeling "great". 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 (chronically Na ~124-130) - started mIVFs with NSS @100cc/hr, reduced today to 75cc/hr as serum sodium has increased to 125 - BMP q6h to monitor improvement with plans to stop NSS once serum sodium reaches 127-128+ - PT/OT consulted given weakness on admission and concern about safety upon return home Increased Urinary Frequency - symptoms for several days, started on abx w/o improvement and urine cx was negative for UTI (skin kayla only) - subsequent UA was yellow/clear with 2+ protein and trace LE, negative for blood/nitrites/bacteria - post-void bladder scan showed >300cc - suspect urinary retention, possibly due to anterior vaginal prolapse vs UTI (less likely) - d/c'd home Ciprofloxacin PO given clean urine culture and persistent symptoms despite abx - urinary lees catheter placed - strict I/Os, monitor urine output Chronic Hypertension - hypertensive to 180s-190s SBP in the ED - did not received AM home BP meds - continue all while hospitalized: - Amlodipine 5mg PO daily - Carvedilol 6.25 mg PO BID - Losartan 100 mg PO daily - most recent BP 161/68; will continue to monitor Hypothyroidism - TSH 1.6 earlier this month - continue home Synthroid 137 mcg PO daily Anxiety - continue home Buspar 5mg PRN and Cymbalta 20 mg PO daily FEN/GI: regular diet, NSS @75cc/hr DVT Prophylaxis: Heparin 5000units SQ Q12H Code Status: Full code Disposition: PCU with tele (2) Increased urinary frequency: (3) Hypertension: (4) Hypothyroidism: (5) Monoclonal gammopathy of undetermined significance: (6) Osteoporosis: Admission and Anticipated Discharge Date Admission Date: July 05, 2020 Supervising Physician Co-Signing Physician Notes I also saw the patient with the resident physician and confirmed carranza portions of the history and physical examination. Agree with the impression and plan as noted in the resident documentation. 85-year-old female with acute on chronic hyponatremia admitted yesterday tells me she is feeling quite better today. She feels that her weakness has improved. Upon admission her serum sodium was found to be 119; it has improved with hydration and is now 125. Exam Seated next to bed. She is pleasant. She has no complaints. 121/78, 69, 16, 100% on room air Heart is regular rate and rhythm. Lungs clear with nonlabored respirations Data Hemoglobin 11.2 Sodium 123 at 0300 hours, 125 at 1126 hrs. BUN 14, creatinine 0.74 Assessment Acute on chronic hyponatremia improving Continue IV fluids but will decrease rate slightly I think once we get her to around 127 to 128 can discontinue fluids as this would be around her baseline. Etiology of exacerbation unclear; by history there is some decrease oral intake There is a questionable UTI although urinalysis/culture does not support PT/OT to see today. Hypertension Variable Amlodipine was increased upon admission; will watch for lower extremity edema Continue Coreg and Cozaar as well. Subjective Patient seen at the bedside this morning. She feels "great" today. She voices worry about falling after she returns home, and says she is eager to work with PT/OT on her strength. She notes a mild cough which is unchanged from her baseline. She has no other complaints today including chest pain, shortness of breath, lightheadedness, dizziness, constipation, diarrhea, muscular pain, urinary symptoms, or other symptoms. Review of Systems Constitutional: + weakness; no fever, no chills and no body aches Gastrointestinal: + nausea and + constipation; no abdominal pain, no vomiting and no diarrhea/loose stools Genitourinary: + difficulty urinating, + urinary frequency, + urinary hesitancy and + urinary urgency; no dysuria and no flank pain Physical Exam Constitutional: cooperative; no acute distress and not ill appearing Respiratory: normal respiratory effort, lungs clear to auscultation Cardiovascular: RRR, no murmur, no edema Neurologic: CN's II-XI intact bilaterally and awake; no focal motor deficits Psychiatric: A+Ox3, euthymic affect Results & Data Results & Data ([facility]) Vital Signs (Past 12 Hours) Vital Signs Temp Pulse Pulse Resp BP BP Pulse Ox 07/06/20 15:00 69 07/06/20 12:25 36.5 C 78 18 121/78 97 07/06/20 08:00 36.4 C L 78 18 158/65 H 100 07/06/20 07:00 66 Resident Activity Tracking Resident Involvement: Resident Care Provided Care Provided: Adult Hospital Medicine (1) Hypothyroidism Hypothyroidism type: unspecified Qualified Code(s): E03.9 - Hypothyroidism, unspecified (2) Hypertension Hypertension type: essential hypertension Qualified Code(s): I10 - Essential (primary) hypertension
[2020-07-07] MEDS: LEVOTHYROXINE SODIUM 137 MCG TABLET PO SCH (05:52)
[2020-07-07 08:29] LABS: Basophils # (auto) 0.01 K/uL (0-0.2); Basophils % (auto) 0.1 %; Eosinophils # (auto) 0.11 K/uL (0-0.5); Eosinophils % (auto) 1.6 %; Hematocrit (blood only) 31.1 % (37-47); Hemoglobin 10.7 g/dL (12.0-16.0); Immature Granulocytes # (auto) 0.03 K/uL (0.00-0.02); Immature Granulocytes % (auto) 0.4 %; Lymphocytes # (auto) 2.17 K/uL (1.2-3.4); Lymphocytes % (auto) 31.9 %; Mean Corpuscular Hgb Conc 34.4 g/dL (32-36); Mean Corpuscular Volume 87.1 fL (80-100); Mean Platelet Volume 8.8 fL (7.4-10.4); Monocytes # (auto) 0.99 K/uL (0.11-0.59); Monocytes % (auto) 14.5 %; Neutrophils % (auto) 51.5 %; Platelet Count 248 K/uL (130-400); RDW Coefficient of Variation 12.8 % (11.5-14.5); RDW Standard Deviation 41.2 fL (36.4-46.3); Red Blood Count 3.57 M/uL (4.2-5.4); White Blood Count 6.81 K/uL (4.8-10.8)
[2020-07-07 08:50] LABS: BUN Creatinine Ratio 17.7 (10-20); Calcium 8.3 mg/dl (8.5-10.1); Est GFR (African American) 88.5; Est GFR (Non-African American) 76.4; Potassium 4.2 mmol/L (3.5-5.1)
[2020-07-07] MEDS: carvediloL 6.25 MG TAB PO SCH (09:51)
[2020-07-07] MEDS: amLODIPine BESYLATE 5 MG TAB PO SCH (09:51)
[2020-07-07] MEDS: CEROVITE ADV FORMULA TAB PO SCH (09:51)
[2020-07-07] MEDS: HEPARIN SOD 5,000 UNIT/0.5 ML VIAL SQ SCH (09:52)
[2020-07-07] MEDS: MIRABEGRON ER 25 MG TAB PO SCH (09:52)
[2020-07-07] MEDS: LOSARTAN POTASSIUM 50 MG TAB PO SCH (09:52)
[2020-07-07] MEDS: DULoxetine HCL 20 MG CAP PO SCH (09:52)
[2020-07-07] MEDS: ASPIRIN 81 MG ECTAB PO SCH (09:52)
[2020-07-07] MEDS: NSS + 20MEQ KCL 20 MEQ/1,000 ML BAG IV SCH (09:55)
--- NOTE | 2020-07-07 14:10 | Discharge Summary ---
Date of Service July 07, 2020 Admission HPI Per Admitting Provider Kathy Aragon is an 85 yo female with PMHx that includes HTN, Hypothyroidism, Osteoporosis, MGUS and Anxiety who presented to [facility] ED on 07/05/2020 with urinary symptoms and generalized weakness for 3-4 days. Patient reports developing increased urinary frequency ([id number]), incomplete voiding and suprapubic fullness in addition to generalized weakness most pronounced in the lower extremities (became more difficult to ambulate with her walker). Symptoms started ~07/02 and patient saw PCP - was prescribed Ciprofloxacin 500mg PO BID for presumed UTI; of note the final urine culture from 07/02 showed three orga nisms in low counts (likely skin kayla). The patient reports persistent urinary symptoms as well as worsening weakness, decreased PO intake, nausea and headaches despite abx. Patient denies dysuria, fever/chills, flank pain, cough, vomiting, other abdominal pain/tenderness, or changes in BMs. Patient denies syncope, seizures, mental status changes ( has not noticed any changes, per patient report). Of note the patient reports one hard BM daily, which is chronic for her. Has previous h/o UTIs albeit infrequent and reports h/o pyelonephritis x1 "many years ago". Lives at home with her ; proficient in all ADLs and most iADLs (daughter often helps with grocery shopping) and ambulates well both inside and outside with a walker. Denies previous/current tobacco use, alcohol use, drug use. In the ED the patient was hypertensive to 193/79 but otherwise hemodynamically stable/afebrile. Found to be hyponatremic (Na 119, previously 132 on 06/15) and hypomagnesemic (1.7) - started on NSS @75cc and Mg replenished via 1g IV. Admission Exam Per Admitting Provider Constitutional: WD/WN, vitals as above + thin ENMT: dry mucus membranes Respiratory: normal respiratory effort, lungs clear to auscultation Cardiovascular: Rate/Rhythm: regular rate and regular rhythm Heart Sounds: + murmur (2/6 systolic ejection murmur in right upper sternal border) Extremities: no edema Gastrointestinal (Abdomen): Inspection/Auscultation: abdomen normal to inspection and normal bowel sounds; abdomen not distended Percussion/Palpation: + abdomen tender (mild suprapubic tenderness due to patient report of "full bladder") and abdomen soft Musculoskeletal: no cyanosis or clubbing, extremities motor strength 5/5 Skin: no rashes, warm and dry Neurologic: patellar DTR's 2+ bilat, sensation intact and PERRL, EOMI, accommodation nl, no face palsy, no dysarthria Motor/Sensory: no tremor Psychiatric: A+Ox3, euthymic affect Principal Diagnosis Hyponatremia Discharge Exam General: Alert, oriented. No acute distress Skin: No noted rashes or bruises Psych: Appropriate mood and affect Neuro: No gross deficits HEENT: NC/AT Chest: Nontender to palpation. CV: RRR, Normal s1, s2. Resp: Breath sounds clear but decreased on the back bilaterally, no increased effort of breathing. Abdomen: Soft, nontender, nondistended. Extremities: No edema in lower extremities bilaterally. Discharge Data Allergies Allergy/AdvReac Type Severity Reaction Status Date / Time adhesive Allergy Mild rash Verified 07/05/20 05:39 enalaprilat [From Vasotec] Allergy Unknown Unknown Verified 07/05/20 05:39 atorvastatin AdvReac Severe Unconscious Verified 07/05/20 05:39 Sulfa (Sulfonamide AdvReac Mild Rash Verified 07/05/20 05:39 Antibiotics) Consultations 07/05/20 07:26 ED Decision to Admit Stat 07/05/20 08:28 ED Decision to Admit Stat 07/05/20 09:08 Consult Case Management - Discharge Planning Routine Hospital Course (1) Hyponatremia: Kathy Aragon is an 85 yo female with PMHx that includes HTN, Hypothyroidism, Osteoporosis, MGUS and Anxiety who presented to [facility] ED on 07/05/2020 with urinary symptoms and generalized weakness for 3-4 days. Found to be hyponatremic with Na 119 on admission. Hyponatremia -She presented with generalized weakness for several days, no severe symptoms of seizure/syncope/altered mental status/coma - On admission: Serum Na 119, Serum Osmolality 253 (L), Urine Osmolality 230 (L), Urine Na 80 (H) --> suspicious for SIADH - suspect hyponatremia due to acute dehydration on chronic SIADH (chronically Na ~130) -Treated with IV fluids, NSS, gentle hydration. Na of 126 on discharge. -Advised continued hydration at home -Given order/prescription for BMP to be drawn on 07/09/2020 after discharge for continued monitoring -Also f/u with PCP strongly recommended for continued monitoring; consider salt tablets if not back to baseline of ~130 - PT recommendations: safe for discharge home. Increased Urinary Frequency - symptoms for several days, started on abx w/o improvement and urine cx was negative for UTI (skin kayla only) - subsequent UA was yellow/clear with 2+ protein and trace LE, negative for blood/nitrites/bacteria - post-void bladder scan showed >300cc on admission - suspect urinary retention, possibly due to anterior vaginal prolapse vs UTI (less likely) - discontinued home Ciprofloxacin PO given clean urine culture and persistent symptoms despite abx - urinary lees catheter placed, removed on discharge Chronic Hypertension -Continue home Amlodipine 5mg PO DAILY, Carvedilol 6.25 mg PO BID, Losartan 100 mg PO daily Hypothyroidism - TSH 1.6 earlier this month - continue home Synthroid 137 mcg PO daily Anxiety - continue home Buspar 5mg PRN and Cymbalta 20 mg PO daily (2) Increased urinary frequency: (3) Hypertension: (4) Hypothyroidism: (5) Monoclonal gammopathy of undetermined significance: (6) Osteoporosis: Total Time Total Time Spent Total Time Spent (In Minutes): See Attending attestation Discharge Plan Discharge Items Patient Disposition: Home - Home Health Services Reason For Visit: URINARY SYMPTOMS, HYPONATREMIA Discharge Diagnosis: UTI, Hyponatremia Condition on Discharge: Good Activity: Per Instructions section Non-emergency contact: Primary Care Provider Call non-emergency contact if: your symptoms worsen and you have a fever Follow-up/Referrals: Deepti Francois CRNP [Primary Care Provider] - 07/13/20 10:30 am Diet: Regular Addtl Attending Provider Instructions: You were admitted with a very low sodium level. We suspect that it became lower than usual because you were dehydrated. We gave you some fluids and your sodium level increased. We are asking that you continue to drink lots of fluids at home. Try to drink a huge glass of water with every meal. It is also important that you have close followup with your primary care doctor to make sure that your sodium levels are continuing to go up. We are asking that you have some bloodwork done on Jul 09 so that your doctor can continue to monitor your sodium levels. Continue to stay safe. It was aplasure taking care of you during your stay here! Pending Studies at Discharge: No Stand-Alone Forms: My [facility], Smoking Cessation Medications and DC Order Prescriptions: Continued losartan 100 mg tablet 100 mg PO DAILY Qty: 90 RF: 3 amlodipine 5 mg tablet 5 mg PO DAILY Qty: 90 RF: 3 buspirone 5 mg tablet 5 mg PO .COMPLEX PRN (Reason: anxiety) Qty: 180 RF: 3 omega-3 acid ethyl esters 1 gram capsule 1 cap PO DAILY RF: 0 levothyroxine 137 mcg capsule 137 mcg PO DAILY Qty: 90 RF: 3 carvedilol 6.25 mg tablet 6.25 mg PO BID Qty: 180 RF: 3 aspirin 81 mg Tablet,Delayed Release (Dr/Ec) 81 mg PO QAM RF: 0 cholecalciferol (vitamin D3) [Vitamin D3] 1,000 unit Tablet 1,000 unit PO QAM RF: 0 PreserVision AREDS [id number] [id number] Tablet 1 tab PO QAM RF: 0 Centrum Silver 0.4-300-250 mg-mcg-mcg Tablet 1 tab PO DAILY RF: 0 duloxetine 20 mg capsule,delayed release(DR/EC) 20 mg PO DAILY RF: 0 Myrbetriq 25 mg tablet extended release 24 hr 25 mg PO DAILY RF: 0 Discontinued ciprofloxacin HCl [Cipro] 500 mg tablet 500 mg PO BID Qty: 14 RF: 0 Discharge Orders: Discharge Order (Routine); Ordered 07/07/20 Ordered By: Bharati Navarrete Admission Data Admit Date/Time: 07/05/20 09:04 Attending Provider: Vadim Daley Admit Provider: Jake Navarro Primary Care Provider: Deepti Francois Other Providers: Drea Miranda ; Ulises Buchanan ; [facility] Other Interventions: Discharge Summary Assessment (RN) Last Done: 07/07/20 14:38 Supervising Physician Co-Signing Physician Notes I also saw the patient with the resident physician and confirmed carranza portions of the history and physical examination. Agree with the impression and plan as noted in the resident documentation. She feels quite well this morning and she did well with PT evaluation. Sodium continues to improve. Ideally would like to see her a bit higher, but given the ongoing pandemic and her desire to return home, it seems reasonable to discharge with close follow up. Recommend BMP in two days. This is a chronic issue for her, so she is not too far off of her normal serum sodium level. Her amlodipine was increased during her hospitalization, but upon review of her outpatient notes, higher dose of amlodipine had caused LE edema. Will resume 5mg daily dose; suspect some element of hospital-hypertension. Resident Activity Tracking Resident Involvement: Resident Care Provided Care Provided: Adult Hospital Medicine
== END 2020-07-07 16:13 | disposition home health service (06) | DRG 641 ==
LOC: ED 04:43 → SUATTDRO 09:04 → EDINP 09:04 → 1E 12:40 → 2S 18:24

== ENCOUNTER 2022-08-24 19:23 | Inpatient (IN) ==
[2022-08-24 20:53] LABS: Basophils # (auto) 0.02 K/uL (0-0.2); Basophils % (auto) 0.3 %; Eosinophils # (auto) 0.68 K/uL (0-0.50); Eosinophils % (auto) 9.1 %; Hematocrit (blood only) 31.2 % (37.0-47.0); Hemoglobin 10.8 g/dl (12.0-16.0); Immature Granulocytes # (auto) 0.05 K/uL (0.01-0.20); Immature Granulocytes % (auto) 0.7 %; Lymphocytes # (auto) 2.39 K/uL (1.2-3.4); Mean Corpuscular Hemoglobin 31.9 pg (25.0-34.0); Mean Corpuscular Hgb Conc 34.6 g/dL (32.0-36.0); Mean Platelet Volume 8.9 fL (9.4-12.4); Monocytes # (auto) 0.72 K/uL (0.11-0.59); Monocytes % (auto) 9.6 %; Neutrophils # (auto) 3.62 K/uL (1.40-6.50); Neutrophils % (auto) 48.3 %; Platelet Count 291 K/uL (130-400); RDW Coefficient of Variation 14.1 % (11.5-14.5); RDW Standard Deviation 48.1 fL (36.4-46.3); Red Blood Count 3.39 M/uL (4.20-5.40); White Blood Count 7.48 K/ul (4.8-10.8)
[2022-08-24 21:07] LABS: Alanine Aminotransferase 12 U/L (7-52); Albumin Globulin Ratio 0.7 (0.9-2); Albumin Level 3.7 gm/dl (3.4-5.0); Alkaline Phosphatase 56 U/L (34-104); Anion Gap 4 (3-11); Aspartate Aminotransferase 21 U/L (13-39); BUN Creatinine Ratio 22.6 (10-20); Bilirubin,Total 0.3 mg/dl (0.2-1.0); Blood Urea Nitrogen 24 mg/dl (6-23); Calcium 9.8 mg/dl (8.5-10.1); Carbon Dioxide 29 mmol/L (21-32); Chloride 96 mmol/L (98-107); Est GFR (African American) 54.7 ml/min; Est GFR (Non-African American) 47.2 ml/min; Globulin 5.1 gm/dl (2.5-4.0); Glucose 131 mg/dl (70-99(Fasting)); Potassium 4.2 mmol/L (3.5-5.1); Sodium 129 mmol/L (136-145); Total Protein 8.8 gm/dl (6.0-8.3)
--- NOTE | 2022-08-24 21:19 | Emergency Department Note ---
Impression & Plan Hypertensive urgency, Sjogren's syndrome, Dehydration, Hyponatremia ED Provider Note NAME: YARIEL VALDEZ AGE: 87 SEX: F : 1935 ARRIVES VIA: Walk-In INFORMANT: Patient, ED PROVIDER(S): Miki Mack MD CHIEF COMPLAINT: Elevated blood pressure, weakness MEDICAL DECISION MAKING: Patient presented due to concern for elevated blood pressure and associated weakness. IV was established blood work is obtained the patient was given a small IV fluid bolus as the patient has not been eating or drinking as much. Patient's blood work showed a normal white count with mild anemia hemoglobin of 10.8 with a normal platelet count. The patient's coags are unremarkable. Hyponatremia noted at 129. Patient did have urine and serum osmolality ordered as well as urine electrolytes. I did discuss with the patient that we can make some modest changes with her blood pressure medication and discharge home versus inpatient treatment for further blood pressure management as well as monitoring treating her hyponatremia. After further discussion with the patient the patient would prefer inpatient treatment at this time which do not think is unreasonable given the patient's age and weakness. The patient does live by herself at home. I did speak the on-call hospitalist Dr. Betancourt and the patient was admitted to the medicine service. Chest x-ray negative. Prior /Outside records reviewed: None Differential diagnosis: Infection, dehydration, metabolic abnormality, hypo/hyperglycemia, electrolyte disturbance, anemia, hypoxia, cardiac sources, intracerebral event, toxicologic, neurologic, as well as other pathologies. Diagnostics, as interpreted by me: ECG: None Cardiac monitoring: An order was placed for continuous cardiac monitoring. The monitor shows a rate of 88 with sinus rhythm. Patient was placed on pulse oximetry Medical decision rules: None Imaging studies: See below HPI: Patient presents due to concern for generalized weakness and hypotension. The patient had checked her blood pressure earlier in the day and it seemed to be high and thus presented here for further evaluation and treatment. The patient states that she has had worsening weakness over the last several months. The patient's did recently and this may also be contributory. Patient felt as though she was having some weakness in her legs but denies any back pain or headache. No chest pains or shortness of breath. The patient has been following Dr. Lee for blood pressure management as well as some lower sodium. Patient does live by her self but family does live close by. The patient states that she has been taking her medications and no recent changes in her meds. Patient states that she has had decreased p.o. intake and appetite. PAST MEDICAL HISTORY: See Below PAST SURGICAL HISTORY: See Below SOCIAL HISTORY: See Below HOME MEDICATIONS: See Below ALLERGIES: See Below VITALS: See Below PHYSICAL EXAMINATION: GENERAL: NAD, wearing a mask, non-toxic. Wearing glasses. Thin in appearance. EYE EXAM: Normal conjunctiva. PERRL, no anisocoria and EOM's grossly intact w/o pain. Oropharynx: Dry mucous membranes NECK: Supple, no nuchal rigidity, no adenopathy, non-tender. No signs of meningismus. FROM of the neck with good chin to chest and neck extension. No stridor. LUNGS: Clear to auscultation. Normal chest wall mechanics. HEART: NSR, no MRG. ABDOMEN: Abdomen soft, non-tender, normo-active bowel sounds, no masses, no rebound or guarding. BACK: No CVA TTP. SKIN: No rashes and no bruising. UPPER EXTREMITIES: Upper extremities are grossly normal. LOWER EXTREMITIES: Grossly normal, no edema. 5 out of 5 strength bilateral lower extremities and no sensory deficits. NEURO EXAM: A&O x3, cranial nerves II-XII grossly intact, normal speech, moves all 4 extremities. Past Med/Surg History Medical History Aortic valve sclerosis Arteriosclerosis of carotid artery Benign neoplasm of colon Cardiac murmur Cervical lymphadenopathy Chronic hoarseness Claustrophobia Constipation Fall GERD (gastroesophageal reflux disease) Hyperlipidemia HX OF Hypomagnesemia IBS (irritable bowel syndrome) Increased urinary frequency Insomnia Macular degeneration Memory changes Mixed hyperlipidemia Osteoarthritis Osteoporosis Recurrent falls Rotator cuff tear, left Situational anxiety Sjogren's syndrome Spinal stenosis Trigeminal neuralgia RIGHT Trigeminal neuralgia Unsteady gait Urinary incontinence Vocal cord paralysis Surgical History History of adenoidectomy History of bladder surgery BLADDER TACK History of colonoscopy History of hysterectomy History of lumpectomy History of throat surgery THURNWALDT CYST BENIGN History of tonsillectomy History of tooth extraction History of total abdominal hysterectomy and bilateral salpingo-oophorectomy Family History Son Family history of diabetes mellitus Father Cancer Sister Cancer Breast cancer Heart disease H/O heart artery stent Mother Myocardial infarction Grandmother AAA (abdominal aortic aneurysm) Myocardial infarction Denies family history of Ovarian cancer Prostate cancer Colorectal cancer Social History Smoking Status: Never smoker Second Hand Exposure: No; Do You Dip or Chew Tobacco: No; Tobacco Cessation Education Requested by Patient: No Hx Alcohol Use: Yes Alcohol type: wine Hx Substance Use: No Preferred Language: [place] Communication Ability: Effective Communication Ability Comment: hard of hearing [employer] Required: No Beliefs That Will Affect Care: Yazidi marital status: Current Living Situation: Alone Current Living Situation Comment: lives with Ishmael current occupational status: retired Other Information That Helps Us Care for You: No Feels Safe at Home: Yes Safety Concerns: Feels Safe At This Time caffeine: Yes Dental Care, Regularly: No Physical Activity Frequency: Does not Exercise Seatbelt Use: always Sunscreen Use: Yes Assistive Devices: Walker Allergies Allergies Allergy/AdvReac Type Severity Reaction Status Date / Time Sulfa (Sulfonamide Allergy Intermediate Rash Verified 08/22/22 10:53 Antibiotics) adhesive Allergy Mild rash Verified 08/22/22 10:53 enalaprilat [From Vasotec] Allergy Unknown Unknown Verified 08/22/22 10:53 atorvastatin AdvReac Severe Unconscious Verified 08/22/22 10:53 Home Meds Home Medications Medication Instructions Recorded Confirmed aspirin 81 mg tablet,delayed 81 mg PO QAM 10/12/18 08/24/22 release cholecalciferol (vitamin D3) 25 1,000 unit PO QAM 10/12/18 08/24/22 mcg (1,000 unit) tablet (Vitamin D3) vitamins A,C,G-qpbz-gmhcpd 2,148 1 tab PO QAM 10/12/18 08/24/22 mcg-113 mg-45 mg-17.4 mg tablet (PreserVision AREDS) omega-3 acid ethyl esters 1 gram 1 cap PO DAILY 02/15/19 08/24/22 capsule varenicline 0.03 mg/spray nasal 0.03 mg intranasal BID 08/06/21 08/24/22 spray (Tyrvaya) sodium chloride 1 gram tablet 1 g PO DAILY 06/24/22 08/24/22 buspirone 5 mg tablet 5 mg PO QAM PRN anxiety 08/17/22 08/24/22 xmbsnvgbmdcscclxdgajan-otfipzjx-fzpxpzib 1 drp OPB HS 08/17/22 08/24/22 80 0.5 %-1 %-0.5 % eye drops (Refresh Optive Advanced) famotidine 20 mg tablet 20 mg PO BID 08/17/22 08/24/22 wvpnujliuhbd-vgnfjgbf-dsxfbg tablet 1 tab PO DAILY 08/17/22 08/24/22 pantoprazole 40 mg tablet,delayed 40 mg PO DAILY 08/17/22 08/24/22 release trazodone 50 mg tablet 50 mg PO HS 08/17/22 08/24/22 white petrolatum-mineral oil 80 1 applic ophthalmic (eye) 08/17/22 08/24/22 %-20 % eye ointment (Soothe Night DIRECTED Time Lubricant) Previous Rx's Medication Instructions Recorded losartan 100 mg tablet 100 mg PO DAILY #90 tabs 09/23/21 mirabegron 25 mg tablet,extended 25 mg PO DAILY #90 tabs 10/14/21 release 24 hr (Myrbetriq) levothyroxine 137 mcg tablet 137 mcg PO DAILY #90 tabs 02/21/22 wheeled walker #1 ea 02/21/22 ondansetron 4 mg disintegrating 4 mg PO Q8H PRN nausea and 03/02/22 tablet vomiting #60 tabs duloxetine 40 mg capsule,delayed 40 mg PO DAILY #90 caps 06/17/22 release amlodipine 5 mg tablet 5 mg PO DAILY #90 tabs 07/25/22 estradiol 0.01% (0.1 mg/gram) 1 g vaginal DAILY #42.5 grams 08/22/22 vaginal cream carvedilol 6.25 mg tablet 6.25 mg PO BID #180 tabs 08/23/22 Results & Data (ED) Vital Signs Vital Signs - 24 hr 08/24/22 19:33 08/24/22 22:30 Temperature 36.4 C L Temperature Source Temporal Artery Scan Pulse Rate 87 Pulse Rate [Apical] 84 Respiratory Rate 18 18 Respiratory Effort / Characteristics Non-Labored Spontaneous Respiratory Depth Normal Blood Pressure 187/83 H Blood Pressure [Right Arm] 196/86 H Blood Pressure Mean 117 Blood Pressure Mean [Right Arm] 122 Pulse Oximetry 94 95 Oxygen Delivery Method Room Air Room Air Sepsis Recent Fever Within 48 Hours No Sepsis New/Unexplained Change in Mental Status N/A Sepsis Action Taken by Nursing No Action Required Home Medications Current Medication List: was personally reviewed by me Laboratory Data Attestation: I reviewed the patient's lab results. 08/24/22 20:34 08/24/22 20:34 Lab Results 08/24/22 08/24/22 08/24/22 Range/Units 20:34 20:34 20:34 WBC 7.48 (4.8-10.8) K/ul RBC 3.39 L (4.20-5.40) M/uL Hgb 10.8 L (12.0-16.0) g/dl Hct 31.2 L (37.0-47.0) % MCV 92.0 (80.0-100.0) fL MCH 31.9 (25.0-34.0) pg MCHC 34.6 (32.0-36.0) g/dL RDW Std Deviation 48.1 H (36.4-46.3) fL RDW Coeff of Neto 14.1 (11.5-14.5) % Plt Count 291 (130-400) K/uL MPV 8.9 L (9.4-12.4) fL Immature Gran % (Auto) 0.7 % Neut % (Auto) 48.3 % Lymph % (Auto) 32.0 % [place] % (Auto) 9.6 % Eos % (Auto) 9.1 % Baso % (Auto) 0.3 % Neut # (Auto) 3.62 (1.40-6.50) K/uL Lymph # (Auto) 2.39 (1.2-3.4) K/uL [place] # (Auto) 0.72 H (0.11-0.59) K/uL Eos # (Auto) 0.68 H (0-0.50) K/uL Baso # (Auto) 0.02 (0-0.2) K/uL Immature Gran # (Auto) 0.05 (0.01-0.20) K/uL PT 10.4 (9.0-12.0) Seconds INR 1.0 (0.9-1.1) APTT 25.5 (21.0-31.0) Seconds PTT Ratio 0.9 Sodium 129 L (136-145) mmol/L Potassium 4.2 (3.5-5.1) mmol/L Chloride 96 L (98-107) mmol/L Carbon Dioxide 29 (21-32) mmol/L Anion Gap 4 (3-11) BUN 24 H (6-23) mg/dl Creatinine 1.06 (0.6-1.2) mg/dl Est Cr Clr Drug Dosing Not Reportable Est GFR ( Amer) 54.7 ml/min Est GFR (Non-Af Amer) 47.2 ml/min BUN/Creatinine Ratio 22.6 H (10-20) Glucose 131 H (70-99(Fasting)) mg/dl Osmolality (280-300) mOsm/kg Calcium 9.8 (8.5-10.1) mg/dl Magnesium 1.8 (1.7-2.4) mg/dl Total Bilirubin 0.3 (0.2-1.0) mg/dl AST 21 (13-39) U/L ALT 12 (7-52) U/L Alkaline Phosphatase 56 (34-104) U/L Troponin I High Sens 11.0 (0-14) pg/ml Total Protein 8.8 H (6.0-8.3) gm/dl Albumin 3.7 (3.4-5.0) gm/dl Globulin 5.1 H (2.5-4.0) gm/dl Albumin/Globulin Ratio 0.7 L (0.9-2) TSH (0.300-4.500) uIu/ml Urine Color Urine Appearance (Clear) Urine pH (4.5-7.5) Ur Specific [place] (1.000-1.030) Urine Protein (Negative) Urine Glucose (UA) (Negative) Urine Ketones (Negative) Urine Blood (Negative) Urine Nitrite (Negative) Urine Bilirubin (Negative) Urine Urobilinogen (Negative) Ur Leukocyte Esterase (Negative) Urine WBC (Auto) (0-5) /hpf Urine RBC (Auto) (0-4) /hpf U Hyaline Cast (Auto) (0-5) /lpf U Epithel Cells (Auto) (0-5) /lpf Urine Bacteria (Auto) (Negative) Urine Osmolality (500-800) mOsm/kg Urine Sodium mmol/L Urine Potassium mmol/L Urine Chloride mmol/L SARS-CoV-2 (PCR) (Negative) Influenza Type A (PCR) (Neg) Influenza Type B (PCR) (Neg) RSV (RT-PCR) (Neg) 08/24/22 08/24/22 08/24/22 Range/Units 20:34 20:34 20:34 WBC (4.8-10.8) K/ul RBC (4.20-5.40) M/uL Hgb (12.0-16.0) g/dl Hct (37.0-47.0) % MCV (80.0-100.0) fL MCH (25.0-34.0) pg MCHC (32.0-36.0) g/dL RDW Std Deviation (36.4-46.3) fL RDW Coeff of Neto (11.5-14.5) % Plt Count (130-400) K/uL MPV (9.4-12.4) fL Immature Gran % (Auto) % Neut % (Auto) % Lymph % (Auto) % [place] % (Auto) % Eos % (Auto) % Baso % (Auto) % Neut # (Auto) (1.40-6.50) K/uL Lymph # (Auto) (1.2-3.4) K/uL [place] # (Auto) (0.11-0.59) K/uL Eos # (Auto) (0-0.50) K/uL Baso # (Auto) (0-0.2) K/uL Immature Gran # (Auto) (0.01-0.20) K/uL PT (9.0-12.0) Seconds INR (0.9-1.1) APTT (21.0-31.0) Seconds PTT Ratio Sodium (136-145) mmol/L Potassium (3.5-5.1) mmol/L Chloride (98-107) mmol/L Carbon Dioxide (21-32) mmol/L Anion Gap (3-11) BUN (6-23) mg/dl Creatinine (0.6-1.2) mg/dl Est Cr Clr Drug Dosing Est GFR ( Amer) ml/min Est GFR (Non-Af Amer) ml/min BUN/Creatinine Ratio (10-20) Glucose (70-99(Fasting)) mg/dl Osmolality 286 (280-300) mOsm/kg Calcium (8.5-10.1) mg/dl Magnesium (1.7-2.4) mg/dl Total Bilirubin (0.2-1.0) mg/dl AST (13-39) U/L ALT (7-52) U/L Alkaline Phosphatase (34-104) U/L Troponin I High Sens (0-14) pg/ml Total Protein (6.0-8.3) gm/dl Albumin (3.4-5.0) gm/dl Globulin (2.5-4.0) gm/dl Albumin/Globulin Ratio (0.9-2) TSH 4.030 (0.300-4.500) uIu/ml Urine Color Urine Appearance (Clear) Urine pH (4.5-7.5) Ur Specific [place] (1.000-1.030) Urine Protein (Negative) Urine Glucose (UA) (Negative) Urine Ketones (Negative) Urine Blood (Negative) Urine Nitrite (Negative) Urine Bilirubin (Negative) Urine Urobilinogen (Negative) Ur Leukocyte Esterase (Negative) Urine WBC (Auto) (0-5) /hpf Urine RBC (Auto) (0-4) /hpf U Hyaline Cast (Auto) (0-5) /lpf U Epithel Cells (Auto) (0-5) /lpf Urine Bacteria (Auto) (Negative) Urine Osmolality (500-800) mOsm/kg Urine Sodium mmol/L Urine Potassium mmol/L Urine Chloride mmol/L SARS-CoV-2 (PCR) NEGATIVE (Negative) Influenza Type A (PCR) Negative (Neg) Influenza Type B (PCR) Negative (Neg) RSV (RT-PCR) Negative (Neg) 08/24/22 08/24/22 08/24/22 Range/Units 22:14 22:19 22:19 WBC (4.8-10.8) K/ul RBC (4.20-5.40) M/uL Hgb (12.0-16.0) g/dl Hct (37.0-47.0) % MCV (80.0-100.0) fL MCH (25.0-34.0) pg MCHC (32.0-36.0) g/dL RDW Std Deviation (36.4-46.3) fL RDW Coeff of Neto (11.5-14.5) % Plt Count (130-400) K/uL MPV (9.4-12.4) fL Immature Gran % (Auto) % Neut % (Auto) % Lymph % (Auto) % [place] % (Auto) % Eos % (Auto) % Baso % (Auto) % Neut # (Auto) (1.40-6.50) K/uL Lymph # (Auto) (1.2-3.4) K/uL [place] # (Auto) (0.11-0.59) K/uL Eos # (Auto) (0-0.50) K/uL Baso # (Auto) (0-0.2) K/uL Immature Gran # (Auto) (0.01-0.20) K/uL PT (9.0-12.0) Seconds INR (0.9-1.1) APTT (21.0-31.0) Seconds PTT Ratio Sodium (136-145) mmol/L Potassium (3.5-5.1) mmol/L Chloride (98-107) mmol/L Carbon Dioxide (21-32) mmol/L Anion Gap (3-11) BUN (6-23) mg/dl Creatinine (0.6-1.2) mg/dl Est Cr Clr Drug Dosing Est GFR ( Amer) ml/min Est GFR (Non-Af Amer) ml/min BUN/Creatinine Ratio (10-20) Glucose (70-99(Fasting)) mg/dl Osmolality (280-300) mOsm/kg Calcium (8.5-10.1) mg/dl Magnesium (1.7-2.4) mg/dl Total Bilirubin (0.2-1.0) mg/dl AST (13-39) U/L ALT (7-52) U/L Alkaline Phosphatase (34-104) U/L Troponin I High Sens (0-14) pg/ml Total Protein (6.0-8.3) gm/dl Albumin (3.4-5.0) gm/dl Globulin (2.5-4.0) gm/dl Albumin/Globulin Ratio (0.9-2) TSH (0.300-4.500) uIu/ml Urine Color Yellow Urine Appearance Clear (Clear) Urine pH 7.0 (4.5-7.5) Ur Specific [place] 1.006 (1.000-1.030) Urine Protein 2+ H (Negative) Urine Glucose (UA) Negative (Negative) Urine Ketones Negative (Negative) Urine Blood Negative (Negative) Urine Nitrite Negative (Negative) Urine Bilirubin Negative (Negative) Urine Urobilinogen Negative (Negative) Ur Leukocyte Esterase 2+ H (Negative) Urine WBC (Auto) 10-30 H (0-5) /hpf Urine RBC (Auto) 0-4 (0-4) /hpf U Hyaline Cast (Auto) 1-5 (0-5) /lpf U Epithel Cells (Auto) 10-20 H (0-5) /lpf Urine Bacteria (Auto) Negative (Negative) Urine Osmolality 208 L (500-800) mOsm/kg Urine Sodium 61 mmol/L Urine Potassium 11.7 mmol/L Urine Chloride 63 mmol/L SARS-CoV-2 (PCR) (Negative) Influenza Type A (PCR) (Neg) Influenza Type B (PCR) (Neg) RSV (RT-PCR) (Neg) Administered Medications Acetaminophen (Acetaminophen 325 Mg Tab) 650 mg PO Q6H PRN PRN Reason: pain Stop: 09/24/22 01:14 Last Admin: 08/25/22 02:01 Dose: 650 mg Documented By: DONALDF Amlodipine Besylate (Amlodipine Besylate 5 Mg Tab) 5 mg PO DAILY [facility] Stop: 09/24/22 08:59 Last Admin: 08/25/22 09:15 Dose: 5 mg Documented By: LEEANN Aspirin (Aspirin 81 Mg Ectab) 81 mg PO QAM [facility] Stop: 09/24/22 08:59 Last Admin: 08/25/22 09:16 Dose: 81 mg Documented By: DM Carvedilol (Carvedilol 6.25 Mg Tab) 6.25 mg PO BID ROHIT Stop: 09/24/22 08:59 Last Admin: 08/25/22 09:16 Dose: 6.25 mg Documented By: DM Duloxetine HCl (Duloxetine Hcl 20 Mg Cap) 40 mg PO DAILY [facility] Stop: 09/24/22 08:59 Last Admin: 08/25/22 09:17 Dose: 40 mg Documented By: [facility] Famotidine (Famotidine 20 Mg Tab) 20 mg PO BID ROHIT Stop: 09/24/22 08:59 Last Admin: 08/25/22 09:18 Dose: 20 mg Documented By: ALAYNA Heparin Sodium (Porcine) (Heparin Sod 5,000 Unit/0.5 Ml Vial) 5,000 units SQ Q12 ROHIT Stop: 09/24/22 08:59 Last Admin: 08/25/22 09:18 Dose: 5,000 units Documented By: ALAYNA Hydralazine HCl (Hydralazine Hcl 20 Mg/Ml Vial) 5 mg IV Q6H PRN PRN Reason: Hypertension Stop: 09/24/22 01:57 Last Admin: 08/25/22 12:44 Dose: 5 mg Documented By: Admin: 08/25/22 06:27 Dose: 5 mg Documented By: Levothyroxine Sodium (Levothyroxine Sodium 137 Mcg Tablet) 137 mcg PO DAILYBB [facility] Stop: 09/24/22 06:29 Last Admin: 08/25/22 06:26 Dose: 137 mcg Documented By: Losartan Potassium (Losartan Potassium 50 Mg Tab) 100 mg PO DAILY [facility] Stop: 09/24/22 08:59 Last Admin: 08/25/22 09:19 Dose: 100 mg Documented By: ALAYNA Mirabegron (Mirabegron Er 25 Mg Tab) 25 mg PO DAILY [facility] Stop: 09/24/22 08:59 Last Admin: 08/25/22 09:19 Dose: 25 mg Documented By: AALYNA Pantoprazole Sodium (Pantoprazole 40 Mg Tab) 40 mg PO DAILY [facility] Stop: 09/24/22 08:59 Last Admin: 08/25/22 09:20 Dose: 40 mg Documented By: ALAYNA Sodium Chloride (Sodium Chloride 1 Gm Tablet) 1 gm PO DAILY [facility]OH[facility] Stop: 09/24/22 08:59 Last Admin: 08/25/22 09:20 Dose: 1 gm Documented By: ALAYNA Discontinued Medications Carvedilol (Carvedilol 6.25 Mg Tab) 6.25 mg PO NOW STA Stop: 08/24/22 23:02 Last Admin: 08/24/22 23:57 Dose: 6.25 mg Documented By: Sodium Chloride (Nss 1000ml) 500 mls @ 999 mls/hr IV .Q31M ONE Stop: 08/24/22 22:03 Last Infusion: 08/24/22 22:10 Dose: 0 mls/hr Documented By: Admin: 08/24/22 21:39 Dose: 999 mls/hr Documented By: CAROLINE Imaging Data Radiologist's Impression: Chest X-Ray 08/24/22 19:36 XR chest 1V portable CLINICAL HISTORY: weakness/htn TECHNIQUE: Single frontal radiograph of the chest was obtained. Comparison: Comparison is made to chest radiograph 08/17/2022 FINDINGS: No lines and tubes are seen. The cardiomediastinal silhouette is normal. The lungs are clear. No evidence of pleural effusion or pneumothorax. IMPRESSION: No acute chest disease. ACT 112: Negative or not required by law. Electronically signed by: Christopher Oconnell M.D. 08/24/2022 9:35 PM Discharge Plan Visit Data Chief Complaint: Hypertension Stated Complaint: FEELING WEAK, HYPERTENSION ED Provider: Miki Mack Discharge Problem: Hypertensive urgency, Sjogren's syndrome, Dehydration, Hyponatremia Patient Disposition: Admitted As Inpatient Discharge Instructions Interventions: ED Discharge Assessment Last Done: 08/25/22 02:01
[2022-08-24 21:23] LABS: Partial Thromboplastin Ratio 0.9; Partial Thromboplastin Time 25.5 Seconds (21.0-31.0); Prothrombin Time 10.4 Seconds (9.0-12.0)
[2022-08-24] MEDS ORDERED: SODIUM CHLORIDE 0.9% 1000ML 500 ML IV ONE (21:33)
--- NOTE | 2022-08-24 21:36 | XRay Report ---
XR chest 1V portable CLINICAL HISTORY: weakness/htn TECHNIQUE: Single frontal radiograph of the chest was obtained. Comparison: Comparison is made to chest radiograph 08/17/2022 FINDINGS: No lines and tubes are seen. The cardiomediastinal silhouette is normal. The lungs are clear. No evid ence of pleural effusion or pneumothorax. IMPRESSION: No acute chest disease. ACT 112: Negative or not required by law. Electronically signed by: Christopher Oconnell M.D. 08/24/2022 9:35 PM
[2022-08-24 22:02] LABS: Influenza A virus by PCR Negative (Neg); Influenza B virus by PCR Negative (Neg); RSV by PCR Negative (Neg); SARS CoV2 RNA(COVID-19) Ceph NEGATIVE (Negative)
[2022-08-24 22:27] LABS: Appearance Urine Clear (Clear); Bacteria Urine Automated Negative (Negative); Bilirubin Urine Negative (Negative); Blood Urine Negative (Negative); Color Urine Yellow; Glucose Urine UA Negative (Negative); Ketones Urine Negative (Negative); Leukocyte Esterase Urine 2+ (Negative); Nitrite Urine Negative (Negative); Protein Urine 2+ (Negative); RBC Urine Automated 0-4 /hpf (0-4); Specific Gravity Urine 1.006 (1.000-1.030); Urobilinogen Urine Negative (Negative)
[2022-08-24] MEDS ORDERED: carvediloL 6.25 MG TAB PO STA (23:01)
--- NOTE | 2022-08-24 23:02 | History & Physical Report ---
Date of Service August 24, 2022 Assessment & Plan (1) Hypertensive urgency: Plan: BP up to 198/86 on admission. No signs of end-organ damage/emergency. Patient has labile blood pressure per daughter as well as per Nephrology notes. Currently asymptomatic. - check hsTroponin and TSH - give Carvedilol 6.25mg PO home dose now, continue with home dose in AM - continue home Amlodipine and Losartan - PRN Hydralazine 5mg IV for SBP >185 and/or DBP >110 (2) Hyponatremia: Plan: Na 129, baseline 126-133. Unclear etiology - f/w Dr. Strange for this as outpatient. - check serum/urine osmols and urine sodium - s/p NSS 500cc bolus in ED - hold on further fluids for now - continue home salt supplement - check BMP in AM (3) Anemia: Plan: Hgb 10.8, baseline 10-111, normocytic. ?due to chronic disease, vs iron deficiency. No signs active bleeding. - check ferritin and iron profile (4) Ambulatory dysfunction: Plan: Chronic, progressive/worsening over last several months. With recurrent falls and increased risk living on her own. - PT/OT consulted (5) Hypothyroidism: Plan: Check TSH as stated above. Continue home Synthroid. (6) GERD (gastroesophageal reflux disease): Plan: Continue home Protonix and Pepcid (7) Urinary incontinence: Plan: Continue home Myrbetriq (8) Situational anxiety: Plan: Continue home Buspar and Cymbalta Plan FEN/GI: regular diet DVT Prophylaxis: Heparin SQ Code Status: full Disposition: med/tele, PT/OT consulted History of Present Illness Chief Complaint: hypertension Primary Care Provider: GAYLA Cesar Madelyndiallo Margo is an 87yo female with PMHx significant for Sjogren's syndrome, HTN, GERD, MGUS, hypothyroidism, anemia, hyponatremia, anxiety, and urinary incontinence who presented to [facility] ED on 08/24 for generalized weakness and hypertension. Patient checked BP earlier in the day and was high so her daughter brought her into the ED. Of note the patient has had progressive generalized weakness over last several months. Often feels like her legs get "weak" and has had several mechanical falls over last several weeks. No head trauma or LOC. Of note patient has difficulty with PO intake and often does not drink enough. Also reports she has Sjogren's syndrome and chronic hyponatremia and so cannot drink too much water so does try to limit herself. Of note patient sees Dr. Strange for labile blood pressure/HTN and chronic hyponatremia - she is on chronic salt tablets for this. Patient lives alone but family lives 1/2 mile away. She is proficient in ADLs but needs assistance with all iADLs. She has had trouble moving around her house recently due to worsening weakness and ambulatory dysfunction. Patient does not drink alcohol or smoke. No drug use. In the ED the patient was hypertensive to 196/86. Labs significant for Hgb 10.8 (baseline 10-11), Na 129 (baseline 126 - 133), globulin 5.1 and protein 8.8 (chronic MGUS), UA with 2+ protein as well as 2+LE/10-30WBC/10-20 epithelial cells. CBC/CMP/hsTroponin otherwise WNL. COVID/flu/RSV negative. CXR unremarkable. EKG with sinus rhythm PACs and incomplete RBBB (chronic). Patient was given NSS 500cc bolus. Allergies Allergy/AdvReac Type Severity Reaction Status Date / Time Sulfa (Sulfonamide Allergy Intermediate Rash Verified 08/22/22 10:53 Antibiotics) adhesive Allergy Mild rash Verified 08/22/22 10:53 enalaprilat [From Vasotec] Allergy Unknown Unknown Verified 08/22/22 10:53 atorvastatin AdvReac Severe Unconscious Verified 08/22/22 10:53 Home Medications Medication Instructions Recorded Confirmed Type aspirin 81 mg tablet,delayed 81 mg PO QAM 10/12/18 08/24/22 History release cholecalciferol (vitamin D3) 25 1,000 unit PO QAM 10/12/18 08/24/22 History mcg (1,000 unit) tablet (Vitamin D3) vitamins A,C,X-infj-zsabcw 2,148 1 tab PO QAM 10/12/18 08/24/22 History mcg-113 mg-45 mg-17.4 mg tablet (PreserVision AREDS) omega-3 acid ethyl esters 1 gram 1 cap PO DAILY 02/15/19 08/24/22 History capsule varenicline 0.03 mg/spray nasal 0.03 mg intranasal BID 08/06/21 08/24/22 History spray (Tyrvaya) losartan 100 mg tablet 100 mg PO DAILY #90 tabs 09/23/21 08/24/22 Rx mirabegron 25 mg tablet,extended 25 mg PO DAILY #90 tabs 10/14/21 08/24/22 Rx release 24 hr (Myrbetriq) levothyroxine 137 mcg tablet 137 mcg PO DAILY #90 tabs 02/21/22 08/24/22 Rx wheeled walker #1 ea 02/21/22 08/24/22 Rx ondansetron 4 mg disintegrating 4 mg PO Q8H PRN nausea and 03/02/22 08/24/22 Rx tablet vomiting #60 tabs duloxetine 40 mg capsule,delayed 40 mg PO DAILY #90 caps 06/17/22 08/24/22 Rx release sodium chloride 1 gram tablet 1 g PO DAILY 06/24/22 08/24/22 History amlodipine 5 mg tablet 5 mg PO DAILY #90 tabs 07/25/22 08/24/22 Rx buspirone 5 mg tablet 5 mg PO QAM PRN anxiety 08/17/22 08/24/22 History vratyxntebhuibvtrvnrup-fctynupx-vwcygrhh 1 drp OPB HS 08/17/22 08/24/22 History 80 0.5 %-1 %-0.5 % eye drops (Refresh Optive Advanced) famotidine 20 mg tablet 20 mg PO BID 08/17/22 08/24/22 History xscneolrcovr-cxmnwqlh-quvrom tablet 1 tab PO DAILY 08/17/22 08/24/22 History pantoprazole 40 mg tablet,delayed 40 mg PO DAILY 08/17/22 08/24/22 History release trazodone 50 mg tablet 50 mg PO HS 08/17/22 08/24/22 History white petrolatum-mineral oil 80 1 applic ophthalmic (eye) 08/17/22 08/24/22 History %-20 % eye ointment (Soothe Night DIRECTED Time Lubricant) estradiol 0.01% (0.1 mg/gram) 1 g vaginal DAILY #42.5 grams 08/22/22 08/24/22 Rx vaginal cream carvedilol 6.25 mg tablet 6.25 mg PO BID #180 tabs 08/23/22 08/24/22 Rx Past Med/Surg History Medical History (Updated 08/24/22 @ 23:41 by Jake Navarro MD) Aortic valve sclerosis Arteriosclerosis of carotid artery Benign neoplasm of colon Cardiac murmur Cervical lymphadenopathy Chronic hoarseness Claustrophobia Constipation Fall GERD (gastroesophageal reflux disease) Hyperlipidemia HX OF Hypomagnesemia IBS (irritable bowel syndrome) Increased urinary frequency Insomnia Macular degeneration Memory changes Mixed hyperlipidemia Osteoarthritis Osteoporosis Recurrent falls Rotator cuff tear, left Situational anxiety Sjogren's syndrome Spinal stenosis Trigeminal neuralgia RIGHT Trigeminal neuralgia Unsteady gait Urinary incontinence Vocal cord paralysis Surgical History History of adenoidectomy History of bladder surgery BLADDER TACK History of colonoscopy History of hysterectomy History of lumpectomy History of throat surgery THURNWALDT CYST BENIGN History of tonsillectomy History of tooth extraction History of total abdominal hysterectomy and bilateral salpingo-oophorectomy Family History Son Family history of diabetes mellitus Father Cancer Sister Cancer Breast cancer Heart disease H/O heart artery stent Mother Myocardial infarction Grandmother AAA (abdominal aortic aneurysm) Myocardial infarction Denies family history of Ovarian cancer Prostate cancer Colorectal cancer Social History Smoking Status: Never smoker Second Hand Exposure: No; Hx Alcohol Use: Yes (occasional) Alcohol type: beer Hx Substance Use: No Preferred Language: Yoruba Communication Ability: Effective White Shoe Examiner Required: No Beliefs That Will Affect Care: None marital status: Current Living Situation: Spouse Current Living Situation Comment: lives with Ishmael current occupational status: retired Feels Safe at Home: Yes caffeine: Yes Dental Care, Regularly: No Physical Activity Frequency: Does not Exercise Seatbelt Use: always Sunscreen Use: Yes Assistive Devices: Walker Review of Systems Review of Systems: All systems reviewed & are unremarkable except as noted in HPI & below Physical Exam Physical Exam: General: A&Ox3. NAD. Cooperative. HEENT: Atraumatic, normocephalic. Pulm: CTAB A&P. -wheezes, -rales, -rhonchi. Symmetrical chest rise. No increase work of breathing. No respiratory distress. Cardiac: RRR, 2/6 systolic ejection murmur best auscultated at RUSB. Radial pulses intact and symmetrical. No LE edema. Abdominal: soft, non-tender, non-distended, BS x 4 Skin: warm, dry, no rash Results & Data Results & Data ([facility]) Vital Signs (Past 12 Hours) Vital Signs Temp Pulse Pulse Resp BP BP Pulse Ox 08/24/22 22:30 84 18 196/86 H 95 08/24/22 19:33 36.4 C L 87 18 187/83 H 94 O2 Del Method 08/24/22 22:30 Room Air 08/24/22 19:33 Room Air (5) Hypothyroidism Hypothyroidism type: unspecified Qualified Code(s): E03.9 - Hypothyroidism, unspecified
[2022-08-24 23:13] LABS: Urine Potassium 11.7 mmol/L
[2022-08-24 23:45] LABS: Magnesium 1.8 mg/dl (1.7-2.4)
[2022-08-25] MEDS: ACETAMINOPHEN 325 MG TAB PO PRN ×2 (02:01→23:16)
[2022-08-25 04:19] LABS: Basophils # (auto) 0.02 K/uL (0-0.2); Basophils % (auto) 0.3 %; Eosinophils # (auto) 0.72 K/uL (0-0.50); Eosinophils % (auto) 9.1 %; Hematocrit (blood only) 30.2 % (37.0-47.0); Hemoglobin 10.3 g/dl (12.0-16.0); Immature Granulocytes # (auto) 0.05 K/uL (0.01-0.20); Immature Granulocytes % (auto) 0.6 %; Lymphocytes # (auto) 2.06 K/uL (1.2-3.4); Lymphocytes % (auto) 25.9 %; Mean Corpuscular Hemoglobin 31.6 pg (25.0-34.0); Mean Corpuscular Hgb Conc 34.1 g/dL (32.0-36.0); Mean Corpuscular Volume 92.6 fL (80.0-100.0); Mean Platelet Volume 8.7 fL (9.4-12.4); Monocytes # (auto) 0.88 K/uL (0.11-0.59); Monocytes % (auto) 11.1 %; Neutrophils # (auto) 4.21 K/uL (1.40-6.50); Platelet Count 258 K/uL (130-400); RDW Standard Deviation 47.4 fL (36.4-46.3); Red Blood Count 3.26 M/uL (4.20-5.40); White Blood Count 7.94 K/ul (4.8-10.8)
[2022-08-25 04:40] LABS: Anion Gap 3 (3-11); BUN Creatinine Ratio 23.9 (10-20); Blood Urea Nitrogen 21 mg/dl (6-23); Calcium 9.6 mg/dl (8.5-10.1); Carbon Dioxide 29 mmol/L (21-32); Chloride 99 mmol/L (98-107); Est GFR (African American) 68.5 ml/min; Est GFR (Non-African American) 59.1 ml/min; Glucose 118 mg/dl (70-99(Fasting)); Iron 41 mcg/dl (35-150); Magnesium 1.7 mg/dl (1.7-2.4); Potassium 4.1 mmol/L (3.5-5.1); Sodium 131 mmol/L (136-145); Total Iron Binding Cap Calc 245 mcg/dl (250-450); Transferrin (FE) Percent Satur 17 % (15-50); Unsaturated Iron Binding Cap 204 mcg/dl (155-355)
[2022-08-25 04:58] LABS: Ferritin 87.5 ng/ml (8-388)
[2022-08-25] MEDS: LEVOTHYROXINE SODIUM 137 MCG TABLET PO SCH (06:26)
[2022-08-25] MEDS: hydrALAZINE HCL 20 MG/ML VIAL IV PRN ×2 (06:27→12:44)
[2022-08-25] MEDS: amLODIPine BESYLATE 5 MG TAB PO SCH (09:15)
[2022-08-25] MEDS: ASPIRIN 81 MG ECTAB PO SCH (09:16)
[2022-08-25] MEDS: carvediloL 6.25 MG TAB PO SCH ×2 (09:16→20:23)
[2022-08-25] MEDS: DULoxetine HCL 20 MG CAP PO SCH (09:17)
[2022-08-25] MEDS: HEPARIN SOD 5,000 UNIT/0.5 ML VIAL SQ SCH ×2 (09:18→20:23)
[2022-08-25] MEDS: FAMOTIDINE 20 MG TAB PO SCH ×2 (09:18→20:23)
[2022-08-25] MEDS: LOSARTAN POTASSIUM 50 MG TAB PO SCH (09:19)
[2022-08-25] MEDS: MIRABEGRON ER 25 MG TAB PO SCH (09:19)
[2022-08-25] MEDS: PANTOprazole 40 MG TAB PO SCH (09:20)
[2022-08-25] MEDS: SODIUM CHLORIDE 1 GM TABLET PO SCH (09:20)
--- NOTE | 2022-08-25 09:56 | Electrocardiogram Report ---
Test Reason : Blood Pressure : / mmHG Vent. Rate : 077 BPM Atrial Rate : 077 BPM P-R Int : 170 ms QRS Dur : 118 ms QT Int : 404 ms P-R-T Axes : 070 052 037 degrees QTc Int : 457 ms Poor data quality, interpretation may be adversely affected Sinus rhythm with Premature atrial complexes Possible Left atrial enlargement Incomplete right bundle branch block Nonspecific ST and T wave abnormality Abnormal ECG When compared with ECG of 17-AUG-2022 13:11, Premature atrial complexes are now Present Confirmed by Jean Claude Jones ([id number]) on 08/25/2022 9:56:31 AM Referred By: REFERRED SELF Confirmed By:Av Jones
[2022-08-25] MEDS ORDERED: ONDANSETRON INJ 2 MG/ML 2 ML VIAL IV ONE (20:03)
[2022-08-25] MEDS: traZODone HCL 50 MG TAB PO SCH (20:25)
[2022-08-25] MEDS: ARTIFICIAL TEARS OP SCH (20:25)
--- NOTE | 2022-08-25 21:26 | Hospitalist Progress Note ---
Date of Service August 25, 2022 Assessment & Plan (1) Hypertensive urgency: Plan: BP up to 198/86 on admission. No signs of end-organ damage/emergency. Patient has labile blood pressure per daughter as well as per Nephrology notes. Currently asymptomatic. - check hsTroponin and TSH - give Carvedilol 6.25mg PO home dose now, continue with home dose in AM - continue home Amlodipine and Losartan - PRN Hydralazine 5mg IV for SBP >185 and/or DBP >110 Will consult nephro for hypertension management Patient has required multiple doses of hydralazine. (2) Hyponatremia: Plan: Na 129, baseline 126-133. Unclear etiology - f/w Dr. Strange for this as outpatient. - check serum/urine osmols and urine sodium - s/p NSS 500cc bolus in ED - hold on further fluids for now - continue home salt supplement - sodium improved (3) Anemia: Plan: Hgb 10.8, baseline 10-111, normocytic. ?due to chronic disease, vs iron deficiency. No signs active bleeding. - check ferritin and iron profile (4) Ambulatory dysfunction: Plan: Chronic, progressive/worsening over last several months. With recurrent falls and increased risk living on her own. - PT/OT consulted (5) Hypothyroidism: Plan: Check TSH as stated above. Continue home Synthroid. (6) GERD (gastroesophageal reflux disease): Plan: Continue home Protonix and Pepcid (7) Urinary incontinence: Plan: Continue home Myrbetriq (8) Situational anxiety: Plan: Continue home Buspar and Cymbalta Plan FEN/GI: regular diet DVT Prophylaxis: Heparin SQ Code Status: full Disposition: med/tele, PT/OT consulted Admission and Anticipated Discharge Date Admission Date: August 24, 2022 Subjective 87 yo male reports feeling well. She has no new complaints. Review of Systems Review of Systems: All systems reviewed & are unremarkable except as noted in HPI & below Physical Exam Physical Exam: General: A&Ox3. NAD. Cooperative. HEENT: Atraumatic, normocephalic. Pulm: CTAB A&P. -wheezes, -rales, -rhonchi. Symmetrical chest rise. No increase work of breathing. No respiratory distress. Cardiac: RRR, 2/6 systolic ejection murmur best auscultated at RUSB. Radial pulses intact and symmetrical. No LE edema. Abdominal: soft, non-tender, non-distended, BS x 4 Skin: warm, dry, no rash Results & Data Results & Data ([facility] [place]) Vital Signs (Past 12 Hours) Vital Signs Temp Pulse Pulse Pulse Resp BP BP 08/25/22 20:39 08/25/22 18:31 36.9 C 90 16 160/73 H 08/25/22 17:15 36.8 C 88 16 144/70 H 08/25/22 15:27 82 08/25/22 12:00 88 08/25/22 13:41 81 18 158/71 H 08/25/22 11:50 36.8 C 85 19 192/78 H 08/25/22 11:00 72 18 193/83 H 08/25/22 10:19 75 23 185/80 H Pulse Ox O2 Del Method 08/25/22 20:39 Room Air 08/25/22 18:31 98 Room Air 08/25/22 17:15 98 Room Air 08/25/22 15:27 08/25/22 12:00 08/25/22 13:41 98 Room Air 08/25/22 11:50 96 Room Air 08/25/22 11:00 98 Room Air 08/25/22 10:19 98 Room Air PG Care Time/CCT Total # of Minutes Spent Total Time Spent with Patient: Total time spent is greater than 50% in coordination of care (as documented) at patient's floor/unit and/or counseling patient: Coding Level of Care Code 75482 SUB INP/OBS CARE 2/35MIN Diagnoses Hypertensive urgency I16.0 Hyponatremia E87.1 Anemia D64.9 Ambulatory dysfunction R26.2 Hypothyroidism E03.9 Hypothyroidism type: unspecified GERD (gastroesophageal reflux disease) K21.9 Urinary incontinence R32 Situational anxiety F41.8 (5) Hypothyroidism Hypothyroidism type: unspecified Qualified Code(s): E03.9 - Hypothyroidism, unspecified
--- NOTE | 2022-08-26 05:47 | Billing Data ---
Date of Service August 26, 2022 Coding Level of Care Code 97248 INT INP/OBS CARE
[2022-08-26] MEDS: busPIRone 5 MG TAB PO PRN (07:52)
[2022-08-26] MEDS: amLODIPine BESYLATE 5 MG TAB PO SCH (07:53)
[2022-08-26] MEDS: DULoxetine HCL 20 MG CAP PO SCH (07:53)
[2022-08-26] MEDS: FAMOTIDINE 20 MG TAB PO SCH ×2 (07:53→21:24)
[2022-08-26] MEDS: carvediloL 6.25 MG TAB PO SCH ×2 (07:53→21:24)
[2022-08-26] MEDS: PANTOprazole 40 MG TAB PO SCH (07:53)
[2022-08-26] MEDS: SODIUM CHLORIDE 1 GM TABLET PO SCH ×2 (07:53→21:24)
[2022-08-26] MEDS: MIRABEGRON ER 25 MG TAB PO SCH (07:53)
[2022-08-26] MEDS: HEPARIN SOD 5,000 UNIT/0.5 ML VIAL SQ SCH ×2 (07:54→21:26)
[2022-08-26] MEDS: ASPIRIN 81 MG ECTAB PO SCH (07:54)
[2022-08-26] MEDS: LEVOTHYROXINE SODIUM 137 MCG TABLET PO SCH (07:54)
[2022-08-26] MEDS: LOSARTAN POTASSIUM 50 MG TAB PO SCH (07:54)
[2022-08-26 08:53] LABS: BUN Creatinine Ratio 16.5 (10-20); Calcium 9.4 mg/dl (8.5-10.1); Creatinine Clr Calc Pharmacy 21.4 ml/min; Est GFR (African American) 41.6 ml/min; Est GFR (Non-African American) 35.9 ml/min; Potassium 4.3 mmol/L (3.5-5.1)
--- NOTE | 2022-08-26 10:54 | Nephrology Consultation ---
Date of Consultation August 26, 2022 Assessment & Plan (1) Hypertensive urgency: (2) Hyponatremia: (3) Dehydration: (4) Anemia: Plan 87-year-old female with history of chronic hyponatremia and level hypertension admitted to the hospital with hypertensive urgency, generalized weakness and hyponatremia after she presented to ER with home blood pressure monitoring showing significantly elevated blood pressure. Workup has been otherwise unremarkable, blood pressure slowly started to improve. Initial sodium was 129 which improved to 131 after IV fluid bolus however again dropped to 127 this morning. This morning lab also showed elevated creatinine at 1.3 baseline normal renal function. Clinically she seems volume depleted. -- recommend starting on IV normal saline at 80 mL/hour, monitor volume status, clinically she definitely looks volume depleted, with her underlying Sjogren syndrome she may not be drinking much at her baseline. -- increase amlodipine to 10 mg daily as there is no sign of volume overload or lower extremity edema. Increase salt tablet to 1 g twice a day. recommend using compression stockings if lower extremity edema becomes bothersome -- encourage increased protein intake Thank you for allowing me to participate in your patient's care. It was a pleasure to see Kathy. History of Present Illness Reason for Consultation: Hypertensive urgency, Hyponatremia Attending Physician: Pedrito Shen MD History of Present Illness Kathy Aragon is an 87 year-old female with PMH of chronic hyponatremia, Sjogren's syndrome, HTN, GERD, MGUS, hypothyroidism, anemia, hyponatremia, anxiety, and urinary incontinence admitted on 08/24 for generalized weakness and hypertension urgency. Nephrology consult was requested to manage hyponatremia and hypertension. EMR records are reviewed in detail during patient's visit. Kathy ibarra was brought to ER by her daughter after she had blood pressure checked at home and found to be significantly elevated. she also has been having progressive progressive generalized weakness over last several months which gotten worse over last few days And she was reported to have several mechanical falls over last several weeks with h/o head trauma or LOC. In ER BP was 196/86 which has been somewhat improving and this morning blood pressure was 137/68. Labs were significant for Hgb 10.8 (baseline 10-11), Na 129 (baseline 126 - 133), globulin 5.1 and protein 8.8 (chronic MGUS), UA with 2+ protein as well as 2+LE/10-30WBC/10-20 epithelial cells. COVID/flu/RSV negative. CXR unremarkable. EKG with sinus rhythm PACs and incomplete RBBB (chronic). troponin was unremarkable. She received 500 cc of normal saline bolus in ER and repeat lab showed sodium improved to 131 yesterday after the IV fluid. She has history of chronic hyponatremia, has been on oral salt tablet 1 g once a day as she had some issues with fluid retention on higher dose before. Her sodium generally stays around 126-133. No history of smoking or excessive alcohol drinking. No personal history of malignancy. Does have history of Sjogren syndrome and MGUS. Past medical history also notable for a bile hypertension. previously workup was unremarkable. Has been on amlodipine 5 mg daily, Previously also had some problem with lower extremity edema with amlodipine which was managed with compression stockings. This morning sodium again dropped to 127. blood pressure slowly improved and last blood pressure this morning was 137/68. Clinically she looks volume depleted, her mucous membranes are dry and she has remaining of being thirsty. Allergies Allergy/AdvReac Type Severity Reaction Status Date / Time Sulfa (Sulfonamide Allergy Intermediate Rash Verified 08/22/22 10:53 Antibiotics) adhesive Allergy Mild rash Verified 08/22/22 10:53 enalaprilat [From Vasotec] Allergy Unknown Unknown Verified 08/22/22 10:53 atorvastatin AdvReac Severe Unconscious Verified 08/22/22 10:53 Home Medications Medication Instructions Recorded Confirmed Type aspirin 81 mg tablet,delayed 81 mg PO QAM 10/12/18 08/24/22 History release cholecalciferol (vitamin D3) 25 1,000 unit PO QAM 10/12/18 08/24/22 History mcg (1,000 unit) tablet (Vitamin D3) vitamins A,C,W-vueo-xobmhv 2,148 1 tab PO QAM 10/12/18 08/24/22 History mcg-113 mg-45 mg-17.4 mg tablet (PreserVision AREDS) omega-3 acid ethyl esters 1 gram 1 cap PO DAILY 02/15/19 08/24/22 History capsule varenicline 0.03 mg/spray nasal 0.03 mg intranasal BID 08/06/21 08/24/22 History spray (Tyrvaya) losartan 100 mg tablet 100 mg PO DAILY #90 tabs 09/23/21 08/24/22 Rx mirabegron 25 mg tablet,extended 25 mg PO DAILY #90 tabs 10/14/21 08/24/22 Rx release 24 hr (Myrbetriq) levothyroxine 137 mcg tablet 137 mcg PO DAILY #90 tabs 02/21/22 08/24/22 Rx wheeled walker #1 ea 02/21/22 08/24/22 Rx ondansetron 4 mg disintegrating 4 mg PO Q8H PRN nausea and 03/02/22 08/24/22 Rx tablet vomiting #60 tabs duloxetine 40 mg capsule,delayed 40 mg PO DAILY #90 caps 06/17/22 08/24/22 Rx release sodium chloride 1 gram tablet 1 g PO DAILY 06/24/22 08/24/22 History amlodipine 5 mg tablet 5 mg PO DAILY #90 tabs 07/25/22 08/24/22 Rx buspirone 5 mg tablet 5 mg PO QAM PRN anxiety 08/17/22 08/24/22 History irtvwtsmcowmngitddwkzk-ulhipbes-yxnfrnbh 1 drp OPB HS 08/17/22 08/24/22 History 80 0.5 %-1 %-0.5 % eye drops (Refresh Optive Advanced) famotidine 20 mg tablet 20 mg PO BID 08/17/22 08/24/22 History znsnomfsvokq-batpoxak-azpqen tablet 1 tab PO DAILY 08/17/22 08/24/22 History pantoprazole 40 mg tablet,delayed 40 mg PO DAILY 08/17/22 08/24/22 History release trazodone 50 mg tablet 50 mg PO HS 08/17/22 08/24/22 History white petrolatum-mineral oil 80 1 applic ophthalmic (eye) 08/17/22 08/24/22 History %-20 % eye ointment (Soothe Night DIRECTED Time Lubricant) estradiol 0.01% (0.1 mg/gram) 1 g vaginal DAILY #42.5 grams 08/22/22 08/24/22 Rx vaginal cream carvedilol 6.25 mg tablet 6.25 mg PO BID #180 tabs 08/23/22 08/24/22 Rx Patient History Medical History Aortic valve sclerosis Arteriosclerosis of carotid artery Benign neoplasm of colon Cardiac murmur Cervical lymphadenopathy Chronic hoarseness Claustrophobia Constipation Fall GERD (gastroesophageal reflux disease) Hyperlipidemia HX OF Hypomagnesemia IBS (irritable bowel syndrome) Increased urinary frequency Insomnia Macular degeneration Memory changes Mixed hyperlipidemia Osteoarthritis Osteoporosis Recurrent falls Rotator cuff tear, left Situational anxiety Sjogren's syndrome Spinal stenosis Trigeminal neuralgia RIGHT Trigeminal neuralgia Unsteady gait Urinary incontinence Vocal cord paralysis Surgical History History of adenoidectomy History of bladder surgery BLADDER TACK History of colonoscopy History of hysterectomy History of lumpectomy History of throat surgery THURNWALDT CYST BENIGN History of tonsillectomy History of tooth extraction History of total abdominal hysterectomy and bilateral salpingo-oophorectomy Family History Son Family history of diabetes mellitus Father Cancer Sister Cancer Breast cancer Heart disease H/O heart artery stent Mother Myocardial infarction Grandmother AAA (abdominal aortic aneurysm) Myocardial infarction Denies family history of Ovarian cancer Prostate cancer Colorectal cancer Social History Smoking Status: Never smoker Second Hand Exposure: No; Do You Dip or Chew Tobacco: No; Tobacco Cessation Education Requested by Patient: No Hx Alcohol Use: Yes Alcohol type: wine Hx Substance Use: No Preferred Language: Lebanese Communication Ability: Effective Communication Ability Comment: hard of hearing Microsoft Bi Consultant Required: No Beliefs That Will Affect Care: Protestant marital status: Current Living Situation: Alone Current Living Situation Comment: lives with Ishmael current occupational status: retired Other Information That Helps Us Care for You: No Feels Safe at Home: Yes Safety Concerns: Feels Safe At This Time caffeine: Yes Dental Care, Regularly: No Physical Activity Frequency: Does not Exercise Seatbelt Use: always Sunscreen Use: Yes Assistive Devices: Walker Review of Systems Review of Systems: A detailed review of system was otherwise unremarkable except mentioned above. Physical Exam Constitutional: WD/WN, vitals as above no acute distress Eyes: + anicteric sclerae Neck: normal visual inspection Respiratory: Auscultation: lungs clear to auscultation bilaterally Cardiovascular: RRR, no murmur, no edema Gastrointestinal (Abdomen): Inspection/Auscultation: abdomen normal to inspection and normal bowel sounds Percussion/Palpation: abdomen soft; abdomen nontender Musculoskeletal: Extremities: extremities normal to inspection Skin: no rashes Neurologic: no focal motor deficits Psychiatric: Orientation: alert and oriented x 3 Affect: euthymic affect Results & Data ([facility]) Vital Signs (Past 12 Hours) Vital Signs Temp Pulse Pulse Resp BP BP Pulse Ox 08/26/22 07:39 36.7 C 91 H 20 137/68 98 08/26/22 07:20 64 08/26/22 02:45 169/73 H 08/26/22 02:56 36.8 C 79 16 97 08/25/22 23:09 36.8 C 91 H 18 145/66 H 98 O2 Del Method 08/26/22 07:39 Room Air 08/26/22 07:20 08/26/22 02:45 08/26/22 02:56 Room Air 08/25/22 23:09 Room Air PG Care Time/CCT Total # of Minutes Spent Total Time Spent with Patient: Total time spent is greater than 50% in coordination of care (as documented) at patient's floor/unit and/or counseling patient: Coding Level of Care Code INP/OBS CONSULT LVL 5, 80 MIN Diagnoses Hypertensive urgency I16.0 Hyponatremia E87.1 Dehydration E86.0 Anemia D64.9
[2022-08-26] MEDS: SODIUM CHLORIDE 0.9% 1000ML 1,000 ML IV SCH (11:36)
[2022-08-26] MEDS: traZODone HCL 50 MG TAB PO SCH (21:25)
[2022-08-26] MEDS: ARTIFICIAL TEARS OP SCH (21:26)
[2022-08-26] MEDS: ACETAMINOPHEN 325 MG TAB PO PRN (22:54)
[2022-08-27] MEDS: SODIUM CHLORIDE 0.9% 1000ML 1,000 ML IV SCH (00:32)
--- NOTE | 2022-08-27 00:41 | Hospitalist Progress Note ---
Date of Service August 26, 2022 Assessment & Plan (1) Hypertensive urgency: Plan: BP up to 198/86 on admission. No signs of end-organ damage/emergency. Patient has labile blood pressure per daughter as well as per Nephrology notes. Currently asymptomatic. - check hsTroponin and TSH - give Carvedilol 6.25mg PO home dose now, continue with home dose in AM - continue home Amlodipine and Losartan - PRN Hydralazine 5mg IV for SBP >185 and/or DBP >110 Will consult nephro for hypertension management Patient has required multiple doses of hydralazine. 08/26-continue to monitor blood pressure trend on increased dose of amlodipine and losartan (2) Hyponatremia: Plan: Na 129, baseline 126-133. Unclear etiology - f/w Dr. Strange for this as outpatient. - check serum/urine osmols and urine sodium - s/p NSS 500cc bolus in ED - hold on further fluids for now - continue home salt supplement - sodium improved 08/26-Sodium 127 today Monitor trend check urine lites (3) Anemia: Plan: Hgb 10.8, baseline 10-111, normocytic. ?due to chronic disease, vs iron deficiency. No signs active bleeding. - check ferritin and iron profile (4) Ambulatory dysfunction: Plan: Chronic, progressive/worsening over last several months. With recurrent falls and increased risk living on her own. - PT/OT consulted (5) Hypothyroidism: Plan: Check TSH as stated above. Continue home Synthroid. (6) GERD (gastroesophageal reflux disease): Plan: Continue home Protonix and Pepcid (7) Urinary incontinence: Plan: Continue home Myrbetriq (8) Situational anxiety: Plan: Continue home Buspar and Cymbalta Plan FEN/GI: regular diet DVT Prophylaxis: Heparin SQ Code Status: full Disposition: med/tele, PT/OT consulted Admission and Anticipated Discharge Date Admission Date: August 24, 2022 Subjective Patient denies any acute chest pain or shortness of breath No visual disturbance or headaches reported Physical Exam Physical Exam: Head and ENT no thyroid enlargement trachea midline Cardiovascular S1-S2 are normal no S3 Lungs bilateral air entry fair no wheezing Abdomen soft nondistended positive bowel sounds no rebound tenderness Extremity shows trace edema Neurologically no focal deficits Skin shows no rash no cyanosis Results & Data Results & Data ([facility]) Vital Signs (Past 12 Hours) Vital Signs Temp Pulse Pulse Resp BP BP Pulse Ox 08/26/22 23:00 36.4 C L 76 18 163/74 H 97 08/26/22 23:00 36.7 C 79 182/73 H 97 08/26/22 19:04 36.8 C 77 18 157/72 H 93 08/26/22 15:06 73 08/26/22 15:04 36.7 C 82 18 171/66 H 94 O2 Del Method 08/26/22 23:00 Room Air 08/26/22 23:00 Room Air 08/26/22 19:04 Room Air 08/26/22 15:06 08/26/22 15:04 Room Air Laboratory Results BMP 08/26/22 08:03 Sodium 127 L Potassium 4.3 Chloride 94 L Carbon Dioxide 29 BUN 22 Creatinine 1.33 H D Glucose 105 H Calcium 9.4 PG Care Time/CCT Total # of Minutes Spent Total Time Spent with Patient: Total time spent is greater than 50% in coordination of care (as documented) at patient's floor/unit and/or counseling patient: Coding Level of Care Code 47288 SUB INP/OBS CARE 2/35MIN Diagnoses Hypertensive urgency I16.0 Hyponatremia E87.1 Anemia D64.9 Ambulatory dysfunction R26.2 Hypothyroidism E03.9 Hypothyroidism type: unspecified GERD (gastroesophageal reflux disease) K21.9 Urinary incontinence R32 Situational anxiety F41.8 (5) Hypothyroidism Hypothyroidism type: unspecified Qualified Code(s): E03.9 - Hypothyroidism, unspecified
[2022-08-27] MEDS: LEVOTHYROXINE SODIUM 137 MCG TABLET PO SCH (05:28)
[2022-08-27 07:46] LABS: Hematocrit (blood only) 26.8 % (37.0-47.0); Hemoglobin 9.1 g/dl (12.0-16.0); Mean Corpuscular Hemoglobin 31.2 pg (25.0-34.0); Mean Corpuscular Volume 91.8 fL (80.0-100.0); Platelet Count 241 K/uL (130-400); RDW Coefficient of Variation 13.7 % (11.5-14.5); RDW Standard Deviation 46.8 fL (36.4-46.3); Red Blood Count 2.92 M/uL (4.20-5.40); White Blood Count 6.71 K/ul (4.8-10.8)
[2022-08-27] MEDS: MIRABEGRON ER 25 MG TAB PO SCH (07:49)
[2022-08-27] MEDS: amLODIPine BESYLATE 5 MG TAB PO SCH (07:49)
[2022-08-27] MEDS: ASPIRIN 81 MG ECTAB PO SCH (07:50)
[2022-08-27] MEDS: LOSARTAN POTASSIUM 50 MG TAB PO SCH (07:50)
[2022-08-27] MEDS: busPIRone 5 MG TAB PO PRN (07:50)
[2022-08-27] MEDS: PANTOprazole 40 MG TAB PO SCH (07:50)
[2022-08-27] MEDS: DULoxetine HCL 20 MG CAP PO SCH (07:50)
[2022-08-27] MEDS: FAMOTIDINE 20 MG TAB PO SCH ×2 (07:51→20:13)
[2022-08-27] MEDS: SODIUM CHLORIDE 1 GM TABLET PO SCH ×2 (07:51→20:14)
[2022-08-27] MEDS: HEPARIN SOD 5,000 UNIT/0.5 ML VIAL SQ SCH ×2 (07:51→20:14)
[2022-08-27] MEDS: carvediloL 6.25 MG TAB PO SCH ×2 (07:51→20:13)
[2022-08-27 08:15] LABS: Calcium 8.7 mg/dl (8.5-10.1)
[2022-08-27 08:21] LABS: Creatinine Clr Calc Pharmacy 25.6 ml/min; Est GFR (African American) 51.7 ml/min; Est GFR (Non-African American) 44.6 ml/min; Phosphorus 3.7 mg/dl (2.5-4.9)
--- NOTE | 2022-08-27 11:07 | Nephrology Progress Note ---
Date of Service August 27, 2022 Assessment & Plan (1) Hypertensive urgency: (2) Hyponatremia: (3) Dehydration: (4) Anemia: Clark Chavez is a n 87-year-old female with chronic hyponatremia and hypertension. She was admitted to the hospital with hypertensive urgency, generalized weakness and hyponatremia. Sodium initially improved from 129 which improved to 131 mmol/L with IVF. After starting to drop yesterday, additional IVF was provided. Kathy was found to be volume depleted yesterday. Volume status appears much better today. NSS gtt will be stopped. Continue oral NaCl 1 gram twice daily. Monitor for improvement in BP once NaCl infusion stopped. If BP remains elevated, increase carvedilol to 12.5 mg twice daily. Amlodipine increased to 10 mg daily yesterday. Continue same today. Check orthostatic vitals. Encourage dietary protein intake. Admission and Anticipated Discharge Date Admission Date: August 24, 2022 Subjective No acute events overnight. Kathy feels reasonably well and states that she would like to go home today. She notes that her appetite is good and she is drinking plenty of fluids. She denies any symptoms of accelerated hypertension this AM but admits that she did have a mild headache overnight. She has not slept well in the hospital. She experienced a frontal headache which is similar to headaches that she has had in the past. Review of Systems Review of Systems: All systems reviewed & are unremarkable except as noted in HPI & below Physical Exam Constitutional: well developed, + thin and + frail appearing; no acute distress Eyes: no scleral abnormality and no corneal abnormality ENMT: Mouth: + dry oral mucous membranes Neck: normal visual inspection and trachea midline Respiratory: normal respiratory effort Auscultation: lungs clear to auscultation bilaterally Cardiovascular: Rate/Rhythm: regular rate Heart Sounds: normal S1 and normal S2 Extremities: + pedal edema Musculoskeletal: Extremities: no cyanosis and no clubbing Skin: + turgor decreased; no jaundice Neurologic: Motor/Sensory: no tremor and no asterixis Psychiatric: Orientation: alert and oriented x 3 Results & Data ([facility]) Vital Signs (Past 12 Hours) Vital Signs Temp Pulse Pulse Resp BP BP Pulse Ox 08/27/22 10:57 36.6 C 76 18 171/75 H 100 08/27/22 07:51 36.7 C 83 18 195/76 H 94 08/27/22 07:58 08/27/22 07:33 77 08/27/22 04:00 36.7 C 88 18 167/75 H 92 08/27/22 00:00 72 O2 Del Method 08/27/22 10:57 Room Air 08/27/22 07:51 Room Air 08/27/22 07:58 Room Air 08/27/22 07:33 08/27/22 04:00 Room Air 08/27/22 00:00 Laboratory Results Laboratory Results - last 24 hr 08/27/22 08/27/22 06:30 06:30 WBC 6.71 RBC 2.92 L Hgb 9.1 L Hct 26.8 L MCV 91.8 MCH 31.2 MCHC 34.0 RDW Std Deviation 46.8 H RDW Coeff of Neto 13.7 Plt Count 241 MPV 9.0 L Sodium 130 L Potassium 4.0 Chloride 101 Carbon Dioxide 26 Anion Gap 3 BUN 20 Creatinine 1.11 Est Cr Clr Drug Dosing 25.6 Est GFR ( Amer) 51.7 Est GFR (Non-Af Amer) 44.6 BUN/Creatinine Ratio 18.0 Glucose 88 Calcium 8.7 Phosphorus 3.7 Albumin 3.0 L PG Care Time/CCT Total # of Minutes Spent Total Time Spent with Patient: Total time spent is greater than 50% in coordination of care (as documented) at patient's floor/unit and/or counseling patient: Coding Level of Care Code 36456 SUB INP/OBS CARE 3/50MIN Diagnoses Hypertensive urgency I16.0 Hyponatremia E87.1 Dehydration E86.0 Anemia D64.9
--- NOTE | 2022-08-27 18:42 | Hospitalist Progress Note ---
Date of Service August 27, 2022 Assessment & Plan (1) Hypertensive urgency: Plan: BP up to 198/86 on admission. No signs of end-organ damage/emergency. Patient has labile blood pressure per daughter as well as per Nephrology notes. Currently asymptomatic. - check hsTroponin and TSH - give Carvedilol 6.25mg PO home dose now, continue with home dose in AM - continue home Amlodipine and Losartan - PRN Hydralazine 5mg IV for SBP >185 and/or DBP >110 Will consult nephro for hypertension management Patient has required multiple doses of hydralazine. 08/26-continue to monitor blood pressure trend on increased dose of amlodipine and losartan 08/27-patient blood pressure trend improving on carvedilol along with amlodipine and losartan Continue IV fluids as patient was volume depleted upon initial arrival Serum sodium improving to 129 recently Continue to monitor I's and O's closely along with blood pressure trend monitoring (2) Hyponatremia: Plan: Na 129, baseline 126-133. Unclear etiology - f/w Dr. Strange for this as outpatient. - check serum/urine osmols and urine sodium - s/p NSS 500cc bolus in ED - hold on further fluids for now - continue home salt supplement - sodium improved 08/26-Sodium 127 today Monitor trend check urine lites (3) Anemia: Plan: Hgb 10.8, baseline 10-111, normocytic. ?due to chronic disease, vs iron deficiency. No signs active bleeding. - check ferritin and iron profile (4) Ambulatory dysfunction: Plan: Chronic, progressive/worsening over last several months. With recurrent falls and increased risk living on her own. - PT/OT consulted (5) Hypothyroidism: Plan: Check TSH as stated above. Continue home Synthroid. (6) GERD (gastroesophageal reflux disease): Plan: Continue home Protonix and Pepcid (7) Urinary incontinence: Plan: Continue home Myrbetriq (8) Situational anxiety: Plan: Continue home Buspar and Cymbalta Plan FEN/GI: regular diet DVT Prophylaxis: Heparin SQ Code Status: full Disposition: med/tele, PT/OT consulted Admission and Anticipated Discharge Date Admission Date: August 24, 2022 Subjective No chest pain or shortness of breath Patient denies any acute complaints Blood pressure trend slightly improving Physical Exam Physical Exam: Head and ENT no thyroid enlargement trachea midline Cardiovascular S1-S2 are normal no S3 Lungs bilateral air entry fair no wheezing Abdomen soft nondistended positive bowel sounds no rebound tenderness Extremity shows trace edema Neurologically no focal deficits Skin shows no rash no cyanosis Results & Data Results & Data ([facility]) Vital Signs (Past 12 Hours) Vital Signs Temp Pulse Pulse Resp BP Pulse Ox O2 Del Method 08/27/22 14:30 92 H 08/27/22 15:02 36.6 C 78 18 169/81 H 98 Room Air 08/27/22 10:57 36.6 C 76 18 171/75 H 100 Room Air 08/27/22 07:51 36.7 C 83 18 195/76 H 94 Room Air 08/27/22 07:58 Room Air 08/27/22 07:33 77 PG Care Time/CCT Total # of Minutes Spent Total Time Spent with Patient: Total time spent is greater than 50% in coordination of care (as documented) at patient's floor/unit and/or counseling patient: Coding Level of Care Code 46579 SUB INP/OBS CARE 2/35MIN Diagnoses Hypertensive urgency I16.0 Hyponatremia E87.1 Anemia D64.9 Ambulatory dysfunction R26.2 Hypothyroidism E03.9 Hypothyroidism type: unspecified GERD (gastroesophageal reflux disease) K21.9 Urinary incontinence R32 Situational anxiety F41.8 (5) Hypothyroidism Hypothyroidism type: unspecified Qualified Code(s): E03.9 - Hypothyroidism, unspecified
[2022-08-27] MEDS: traZODone HCL 50 MG TAB PO SCH (20:13)
[2022-08-27] MEDS: ARTIFICIAL TEARS OP SCH (20:13)
[2022-08-28] MEDS: LEVOTHYROXINE SODIUM 137 MCG TABLET PO SCH (05:54)
[2022-08-28 07:51] LABS: Hematocrit (blood only) 27.3 % (37.0-47.0); Hemoglobin 9.3 g/dl (12.0-16.0); Mean Corpuscular Hemoglobin 31.1 pg (25.0-34.0); Mean Corpuscular Hgb Conc 34.1 g/dL (32.0-36.0); Mean Corpuscular Volume 91.3 fL (80.0-100.0); Mean Platelet Volume 8.7 fL (9.4-12.4); Platelet Count 240 K/uL (130-400); RDW Coefficient of Variation 13.7 % (11.5-14.5); RDW Standard Deviation 46.2 fL (36.4-46.3); Red Blood Count 2.99 M/uL (4.20-5.40); White Blood Count 7.13 K/ul (4.8-10.8)
[2022-08-28] MEDS: HEPARIN SOD 5,000 UNIT/0.5 ML VIAL SQ SCH ×2 (07:51→20:32)
[2022-08-28] MEDS: FAMOTIDINE 20 MG TAB PO SCH ×2 (07:51→20:24)
[2022-08-28] MEDS: SODIUM CHLORIDE 1 GM TABLET PO SCH ×2 (07:51→20:24)
[2022-08-28] MEDS: ASPIRIN 81 MG ECTAB PO SCH (07:52)
[2022-08-28] MEDS: amLODIPine BESYLATE 5 MG TAB PO SCH (07:52)
[2022-08-28] MEDS: busPIRone 5 MG TAB PO PRN (07:52)
[2022-08-28] MEDS: carvediloL 6.25 MG TAB PO SCH ×2 (07:52→20:24)
[2022-08-28] MEDS: MIRABEGRON ER 25 MG TAB PO SCH (07:52)
[2022-08-28] MEDS: DULoxetine HCL 20 MG CAP PO SCH (07:53)
[2022-08-28] MEDS: LOSARTAN POTASSIUM 50 MG TAB PO SCH (07:53)
[2022-08-28] MEDS: PANTOprazole 40 MG TAB PO SCH (07:53)
[2022-08-28 08:04] LABS: BUN Creatinine Ratio 16.9 (10-20); Calcium 9.4 mg/dl (8.5-10.1); Creatinine Clr Calc Pharmacy 24.1 ml/min; Est GFR (Non-African American) 41.4 ml/min; Potassium 4.2 mmol/L (3.5-5.1)
--- NOTE | 2022-08-28 10:00 | Nephrology Progress Note ---
Date of Service August 28, 2022 Assessment & Plan (1) Hypertensive urgency: (2) Hyponatremia: (3) Dehydration: (4) Anemia: Plan Kathy is a n 87-year-old female with chronic hyponatremia and hypertension. She was admitted to the hospital with hypertensive urgency, generalized weakness and hyponatremia. Sodium appears stable at 129 mmol/L. It had improved to 131 mmol/L initially with IVF. Volume status acceptable. Kathy was found to be volume depleted on admission. IVF stopped yesterday. BP improved. Tolerating current therapy well. Check orthostatic vitals. Encourage dietary protein intake. If Kathy is discharged home today, please arrange a follow up BMP within 1 week and RTC with me within the next 2 weeks. Admission and Anticipated Discharge Date Admission Date: August 24, 2022 Subjective No acute events overnight. No complaints this AM. Out of bed and ambulating in room. Kathy states that she feels well and would like to go home today. Review of Systems Review of Systems: All systems reviewed & are unremarkable except as noted in HPI & below Physical Exam Constitutional: well developed, + thin and + frail appearing; no acute distress Eyes: no scleral abnormality and no corneal abnormality ENMT: Mouth: + dry oral mucous membranes Neck: normal visual inspection and trachea midline Respiratory: normal respiratory effort Auscultation: lungs clear to auscultation bilaterally Cardiovascular: Rate/Rhythm: regular rate Heart Sounds: normal S1 and normal S2 Extremities: + pedal edema Musculoskeletal: Extremities: no cyanosis and no clubbing Skin: + turgor decreased; no jaundice Neurologic: Motor/Sensory: no tremor and no asterixis Psychiatric: Orientation: alert and oriented x 3 Results & Data ([facility]) Vital Signs (Past 12 Hours) Vital Signs Temp Pulse Pulse Resp BP BP Pulse Ox 08/28/22 07:34 36.5 C 79 19 148/73 H 95 08/28/22 04:00 36.5 C 87 18 175/85 H 95 08/28/22 00:00 75 08/27/22 22:47 36.7 C 90 18 178/77 H 95 O2 Del Method 08/28/22 07:34 Room Air 08/28/22 04:00 Room Air 08/28/22 00:00 08/27/22 22:47 Room Air Laboratory Results Laboratory Results - last 24 hr 08/28/22 08/28/22 07:11 07:11 WBC 7.13 RBC 2.99 L Hgb 9.3 L Hct 27.3 L MCV 91.3 MCH 31.1 MCHC 34.1 RDW Std Deviation 46.2 RDW Coeff of Neto 13.7 Plt Count 240 MPV 8.7 L Sodium 129 L Potassium 4.2 Chloride 101 Carbon Dioxide 27 Anion Gap 1 L BUN 20 Creatinine 1.18 Est Cr Clr Drug Dosing 24.1 Est GFR ( Amer) 48.0 Est GFR (Non-Af Amer) 41.4 BUN/Creatinine Ratio 16.9 Glucose 103 H Calcium 9.4 PG Care Time/CCT Total # of Minutes Spent Total Time Spent with Patient: Total time spent is greater than 50% in coordination of care (as documented) at patient's floor/unit and/or counseling patient: Coding Level of Care Code 05232 SUB INP/OBS CARE 3/50MIN Diagnoses Hypertensive urgency I16.0 Hyponatremia E87.1 Dehydration E86.0 Anemia D64.9
--- NOTE | 2022-08-28 15:59 | Hospitalist Progress Note ---
Date of Service August 28, 2022 Assessment & Plan (1) Hypertensive urgency: Plan: BP up to 198/86 on admission. No signs of end-organ damage/emergency. Patient has labile blood pressure per daughter as well as per Nephrology notes. Currently asymptomatic. - check hsTroponin and TSH - give Carvedilol 6.25mg PO home dose now, continue with home dose in AM - continue home Amlodipine and Losartan - PRN Hydralazine 5mg IV for SBP >185 and/or DBP >110 Will consult nephro for hypertension management Patient has required multiple doses of hydralazine. 08/26-continue to monitor blood pressure trend on increased dose of amlodipine and losartan 08/27-patient blood pressure trend improving on carvedilol along with amlodipine and losartan Continue IV fluids as patient was volume depleted upon initial arrival Serum sodium improving to 129 recently Continue to monitor I's and O's closely along with blood pressure trend monitoring 08/28-sodium 129 today Also patient blood pressure trend improving Patient continues to have intermittent cough will obtain speech and language to assess patient for ongoing aspiration We will keep patient off IV fluids and monitor I's and O's closely If sodium continues to level off and if patient has no evidence of ongoing aspiration Plan to DC in a.m. (2) Hyponatremia: Plan: Na 129, baseline 126-133. Unclear etiology - f/w Dr. Strange for this as outpatient. - check serum/urine osmols and urine sodium - s/p NSS 500cc bolus in ED - hold on further fluids for now - continue home salt supplement - sodium improved 08/26-Sodium 127 today Monitor trend check urine lites (3) Anemia: Plan: Hgb 10.8, baseline 10-111, normocytic. ?due to chronic disease, vs iron deficiency. No signs active bleeding. - check ferritin and iron profile (4) Ambulatory dysfunction: Plan: Chronic, progressive/worsening over last several months. With recurrent falls and increased risk living on her own. - PT/OT consulted (5) Hypothyroidism: Plan: Check TSH as stated above. Continue home Synthroid. (6) GERD (gastroesophageal reflux disease): Plan: Continue home Protonix and Pepcid (7) Urinary incontinence: Plan: Continue home Myrbetriq (8) Situational anxiety: Plan: Continue home Buspar and Cymbalta Plan FEN/GI: regular diet DVT Prophylaxis: Heparin SQ Code Status: full Disposition: med/tele, PT/OT consulted Admission and Anticipated Discharge Date Admission Date: August 24, 2022 Subjective No chest pain or shortness of breath Patient reports increased cough and reports did not sleep well last night Blood pressure trend improving Physical Exam Physical Exam: Head and ENT no thyroid enlargement trachea midline Cardiovascular S1-S2 are normal no S3 Lungs bilateral air entry fair no wheezing Abdomen soft nondistended positive bowel sounds no rebound tenderness Extremity shows trace edema Neurologically no focal deficits Skin shows no rash no cyanosis Results & Data Results & Data ([facility]) Vital Signs (Past 12 Hours) Vital Signs Temp Pulse Pulse Resp BP BP Pulse Ox 08/28/22 15:37 36.6 C 70 20 149/68 H 100 08/28/22 11:53 36.6 C 75 20 153/73 H 98 08/28/22 07:00 99 H 08/28/22 07:34 36.5 C 79 19 148/73 H 95 08/28/22 04:00 36.5 C 87 18 175/85 H 95 O2 Del Method 08/28/22 15:37 Room Air 08/28/22 11:53 Room Air 08/28/22 07:00 08/28/22 07:34 Room Air 08/28/22 04:00 Room Air Laboratory Results Short CBC 08/28/22 Range/Units 07:11 WBC 7.13 (4.8-10.8) K/ul Hgb 9.3 L (12.0-16.0) g/dl Hct 27.3 L (37.0-47.0) % Plt Count 240 (130-400) K/uL BMP 08/28/22 07:11 Sodium 129 L Potassium 4.2 Chloride 101 Carbon Dioxide 27 BUN 20 Creatinine 1.18 Glucose 103 H Calcium 9.4 PG Care Time/CCT Total # of Minutes Spent Total Time Spent with Patient: Total time spent is greater than 50% in coordination of care (as documented) at patient's floor/unit and/or counseling patient: Coding Level of Care Code 42430 SUB INP/OBS CARE 2/35MIN Diagnoses Hypertensive urgency I16.0 Hyponatremia E87.1 Anemia D64.9 Ambulatory dysfunction R26.2 Hypothyroidism E03.9 Hypothyroidism type: unspecified GERD (gastroesophageal reflux disease) K21.9 Urinary incontinence R32 Situational anxiety F41.8 (5) Hypothyroidism Hypothyroidism type: unspecified Qualified Code(s): E03.9 - Hypothyroidism, unspecified
[2022-08-28] MEDS: ARTIFICIAL TEARS OP SCH (20:23)
[2022-08-28] MEDS: traZODone HCL 50 MG TAB PO SCH (20:24)
[2022-08-29] MEDS: LEVOTHYROXINE SODIUM 137 MCG TABLET PO SCH (05:36)
[2022-08-29 07:20] LABS: Hemoglobin 10.9 g/dl (12.0-16.0); Mean Corpuscular Hemoglobin 31.8 pg (25.0-34.0); Mean Corpuscular Hgb Conc 34.1 g/dL (32.0-36.0); Mean Corpuscular Volume 93.3 fL (80.0-100.0); Mean Platelet Volume 9.1 fL (9.4-12.4); Platelet Count 279 K/uL (130-400); Red Blood Count 3.43 M/uL (4.20-5.40); White Blood Count 7.15 K/ul (4.8-10.8)
[2022-08-29 07:27] LABS: BUN Creatinine Ratio 16.5 (10-20); Calcium 9.8 mg/dl (8.5-10.1); Creatinine Clr Calc Pharmacy 26.1 ml/min; Est GFR (African American) 52.9 ml/min; Est GFR (Non-African American) 45.6 ml/min; Potassium 4.3 mmol/L (3.5-5.1)
[2022-08-29] MEDS: FAMOTIDINE 20 MG TAB PO SCH (08:33)
[2022-08-29] MEDS: carvediloL 6.25 MG TAB PO SCH (08:33)
[2022-08-29] MEDS: PANTOprazole 40 MG TAB PO SCH (08:34)
[2022-08-29] MEDS: HEPARIN SOD 5,000 UNIT/0.5 ML VIAL SQ SCH (08:34)
[2022-08-29] MEDS: busPIRone 5 MG TAB PO PRN (08:34)
[2022-08-29] MEDS: amLODIPine BESYLATE 5 MG TAB PO SCH (08:34)
[2022-08-29] MEDS: ASPIRIN 81 MG ECTAB PO SCH (08:35)
[2022-08-29] MEDS: DULoxetine HCL 20 MG CAP PO SCH (08:35)
[2022-08-29] MEDS: MIRABEGRON ER 25 MG TAB PO SCH (08:35)
[2022-08-29] MEDS: SODIUM CHLORIDE 1 GM TABLET PO SCH (08:35)
[2022-08-29] MEDS: LOSARTAN POTASSIUM 50 MG TAB PO SCH (08:35)
--- NOTE | 2022-08-29 10:08 | Nephrology Progress Note ---
Date of Service August 29, 2022 Assessment & Plan (1) Hypertensive urgency: (2) Hyponatremia: (3) Dehydration: (4) Anemia: Plan Kathy is a n 87-year-old female with chronic hyponatremia and hypertension. She was admitted to the hospital with hypertensive urgency, generalized weakness, and hyponatremia. Sodium stable at 130 mmol/L. Volume status acceptable. Kathy was found to be volume depleted on admission. IVF stopped 08/27. BP improved. Tolerating current therapy well. Amlodipine has been increased to 10 mg daily and she is tolerating this dose well. BP 137/75 mmHg today which is acceptable. Encourage dietary protein intake. If Kathy is discharged home today, please arrange a follow up BMP within 1 week and RTC with me within the next 1-2 weeks. Admission and Anticipated Discharge Date Admission Date: August 24, 2022 Subjective No acute events overnight. Kathy has not complaints this morning. She continues to have some anxiety regarding fluctuations in blood pressure. Difficulty sleeping in the hospital reported. She would like to go home today. She denies headaches. No chest pain or palpitations. No shortness of breath. Appetite good. Review of Systems Review of Systems: All systems reviewed & are unremarkable except as noted in HPI & below Physical Exam Constitutional: well developed, + thin and + frail appearing; no acute distress Eyes: no scleral abnormality and no corneal abnormality ENMT: Mouth: + dry oral mucous membranes Neck: normal visual inspection and trachea midline Respiratory: normal respiratory effort Auscultation: lungs clear to auscultation bilaterally Cardiovascular: Rate/Rhythm: regular rate Heart Sounds: normal S1 and normal S2 Extremities: + pedal edema Musculoskeletal: Extremities: no cyanosis and no clubbing Skin: + turgor decreased; no jaundice Neurologic: Motor/Sensory: no tremor and no asterixis Psychiatric: Orientation: alert and oriented x 3 Results & Data ([facility]) Vital Signs (Past 12 Hours) Vital Signs Temp Pulse Resp BP BP Pulse Ox O2 Del Method 08/29/22 07:31 36.6 C 66 18 137/75 100 Room Air 08/29/22 03:35 36.4 C L 72 18 134/71 100 Room Air 08/29/22 01:10 76 149/74 H 08/28/22 23:14 36.4 C L 91 H 18 195/92 H 99 Room Air Laboratory Results Laboratory Results - last 24 hr 08/29/22 08/29/22 06:08 06:08 WBC 7.15 RBC 3.43 L Hgb 10.9 L Hct 32.0 L MCV 93.3 MCH 31.8 MCHC 34.1 RDW Std Deviation 48.0 H RDW Coeff of Neto 14.0 Plt Count 279 MPV 9.1 L Sodium 130 L Potassium 4.3 Chloride 97 L Carbon Dioxide 29 Anion Gap 4 BUN 18 Creatinine 1.09 Est Cr Clr Drug Dosing 26.1 Est GFR ( Amer) 52.9 Est GFR (Non-Af Amer) 45.6 BUN/Creatinine Ratio 16.5 Glucose 97 Calcium 9.8 PG Care Time/CCT Total # of Minutes Spent Total Time Spent with Patient: Total time spent is greater than 50% in coordination of care (as documented) at patient's floor/unit and/or counseling patient: Coding Level of Care Code 32327 SUB INP/OBS CARE 3/50MIN Diagnoses Hypertensive urgency I16.0 Hyponatremia E87.1 Dehydration E86.0 Anemia D64.9
[2022-08-29] MEDS ORDERED: KETOROLAC TROMETHAMINE 15 MG/ML VIAL IV ONE (10:20)
--- NOTE | 2022-08-29 14:11 | Hospitalist Progress Note ---
Date of Service August 29, 2022 Assessment & Plan (1) Hypertensive urgency: Plan: -Now resolved - continue home Amlodipine and Losartan - PRN Hydralazine 5mg IV for SBP >185 and/or DBP >110 -nephro for hypertension management (2) Hyponatremia: Plan: Na 130 today. Unclear etiology - f/w Dr. Strange for this as outpatient. Appreciate nephrology recs (3) Anemia: Plan: Hgb 10.8, baseline 10-111, normocytic. ?due to chronic disease, vs iron deficiency. No signs active bleeding. - check ferritin and iron profile (4) Ambulatory dysfunction: Plan: Chronic, progressive/worsening over last several months. With recurrent falls and increased risk living on her own. - PT/OT consulted (5) Hypothyroidism: Plan: Check TSH as stated above. Continue home Synthroid. (6) GERD (gastroesophageal reflux disease): Plan: Continue home Protonix and Pepcid (7) Urinary incontinence: Plan: Continue home Myrbetriq (8) Situational anxiety: Plan: Continue home Buspar and Cymbalta Plan FEN/GI: regular diet DVT Prophylaxis: Heparin SQ Code Status: full Disposition: awaiting d/c to center care on Monday Admission and Anticipated Discharge Date Admission Date: August 24, 2022 Subjective patient seen and examined, no new complaints Review of Systems Review of Systems: All systems reviewed are negative, apart from the ones contained in the history. Physical Exam Physical Exam: The patient is awake, alert and oriented 3, well developed and well nourished, normocephalic and atraumatic, lying in bed and in no acute distress. HEENT--PERRL, EOMI, mucous membranes and oropharynx mildly dry Neck--supple. No JVD. No bruits. Thyroid normal, trachea midline, no adenopathy. Heart--normal S1 and S2. No murmurs, rubs or gallops. Lungs--clear bilaterally, no respiratory distress, no accessory muscle use. Abdomen--normal bowel sounds and soft. Mild epigastric and left sided abdominal pain Extremities--no cyanosis or clubbing. No edema. Dermatologic--normal skin turgor, normal color, no abnormal lymph nodes, no rash. Neurologic--cranial nerves II through XII grossly intact. Rheumatologic--normal range of motion. Psychiatric--normal affect. Results & Data Results & Data ([facility]) Vital Signs (Past 12 Hours) Vital Signs Temp Pulse Resp BP Pulse Ox O2 Del Method 08/29/22 11:24 97.9 F 76 20 177/76 H 100 Room Air 08/29/22 07:31 97.9 F 66 18 137/75 100 Room Air 08/29/22 03:35 97.5 F L 72 18 134/71 100 Room Air PG Care Time/CCT Total # of Minutes Spent Total Time Spent with Patient: Total time spent is greater than 50% in coordination of care (as documented) at patient's floor/unit and/or counseling patient: Coding Level of Care Code 71719 SUB INP/OBS CARE 2/35MIN Diagnoses Hypertensive urgency I16.0 Hyponatremia E87.1 Anemia D64.9 Ambulatory dysfunction R26.2 Hypothyroidism E03.9 Hypothyroidism type: unspecified GERD (gastroesophageal reflux disease) K21.9 Urinary incontinence R32 Situational anxiety F41.8 Time Spent (min) 35 (5) Hypothyroidism Hypothyroidism type: unspecified Qualified Code(s): E03.9 - Hypothyroidism, unspecified
--- NOTE | 2022-08-29 16:16 | Discharge Summary ---
Date of Service August 29, 2022 Admission HPI Per Admitting Provider Kathy Aragon is an 87yo female with PMHx significant for Sjogren's syndrome, HTN, GERD, MGUS, hypothyroidism, anemia, hyponatremia, anxiety, and urinary incontinence who presented to [facility] ED on 08/24 for generalized weakness and hypertension. Patient checked BP earlier in the day and was high so her daughter brought her into the ED. Of note the patient has had progressive generalized weakness over last several months. Often feels like her legs get "weak" and has had several mechanical falls over last several weeks. No head trauma or LOC. Of note patient has difficulty with PO intake and often does not drink enough. Also reports she has Sjogren's syndrome and chronic hyponatremia and so cannot drink too much water so does try to limit herself. Of note patient sees Dr. Strange for labile blood pressure/HTN and chronic hyponatremia - she is on chronic salt tablets for this. Patient lives alone but family lives 1/2 mile away. She is proficient in ADLs but needs assistance with all iADLs. She has had trouble moving around her house recently due to worsening weakness and ambulatory dysfunction. Patient does not drink alcohol or smoke. No drug use. In the ED the patient was hypertensive to 196/86. Labs significant for Hgb 10.8 (baseline 10-11), Na 129 (baseline 126 - 133), globulin 5.1 and protein 8.8 (chronic MGUS), UA with 2+ protein as well as 2+LE/10-30WBC/10-20 epithelial cells. CBC/CMP/hsTroponin otherwise WNL. COVID/flu/RSV negative. CXR unremarkable. EKG with sinus rhythm PACs and incomplete RBBB (chronic). Patient was given NSS 500cc bolus. Principal Diagnosis HTN urgency Discharge Exam The patient is awake, alert and oriented 3, well developed and well nourished, normocephalic and atraumatic, lying in bed and in no acute distress. HEENT--PERRL, EOMI, mucous membranes and oropharynx mildly dry Neck--supple. No JVD. No bruits. Thyroid normal, trachea midline, no adenopathy. Heart--normal S1 and S2. No murmurs, rubs or gallops. Lungs--clear bilaterally, no respiratory distress, no accessory muscle use. Abdomen--normal bowel sounds and soft. Mild epigastric and left sided abdominal pain Extremities--no cyanosis or clubbing. No edema. Dermatologic--normal skin turgor, normal color, no abnormal lymph nodes, no rash. Neurologic--cranial nerves II through XII grossly intact. Rheumatologic--normal range of motion. Psychiatric--normal affect. Discharge Data Allergies Allergy/AdvReac Type Severity Reaction Status Date / Time Sulfa (Sulfonamide Allergy Intermediate Rash Verified 08/22/22 10:53 Antibiotics) adhesive Allergy Mild rash Verified 08/22/22 10:53 enalaprilat [From Vasotec] Allergy Unknown Unknown Verified 08/22/22 10:53 atorvastatin AdvReac Severe Unconscious Verified 08/22/22 10:53 Consultations 08/24/22 22:41 ED Decision to Admit Stat 08/25/22 14:59 Consult Nephrology Routine Hospital Course (1) Hypertensive urgency: -Now resolved - continue home Amlodipine and Losartan - PRN Hydralazine 5mg IV for SBP >185 and/or DBP >110 -nephro for hypertension management (2) Hyponatremia: Na 130 today. Unclear etiology - f/w Dr. Strange for this as outpatient. Appreciate nephrology recs (3) Anemia: Hgb 10.8, baseline 10-111, normocytic. ?due to chronic disease, vs iron deficiency. No signs active bleeding. - check ferritin and iron profile (4) Ambulatory dysfunction: Chronic, progressive/worsening over last several months. With recurrent falls and increased risk living on her own. - PT/OT consulted (5) Hypothyroidism: Check TSH as stated above. Continue home Synthroid. (6) GERD (gastroesophageal reflux disease): Continue home Protonix and Pepcid (7) Urinary incontinence: Continue home Myrbetriq (8) Situational anxiety: Continue home Buspar and Cymbalta Plan FEN/GI: regular diet DVT Prophylaxis: Heparin SQ Code Status: full Disposition: d/c home Total Time Total Time Spent Total Time Spent (In Minutes): 35 Discharge Plan Discharge Items Patient Disposition: Home - Self-Care Reason For Visit: HYPERTENSIVE URGENCY, AMBULATORY DYSFUNCTION Discharge Diagnosis: HTN Urgency Activity: Resume your previous activity Non-emergency contact: Primary Care Provider and Electrifier Operator Call non-emergency contact if: you have any medication questions Follow-up/Referrals: Deepti Francois CRNP [Primary Care Provider] - 09/05/22 10:30 am Diet: Regular Addtl Attending Provider Instructions: please make appointment to follow up with Nephrology Pending Studies at Discharge: No Stand-Alone Forms: [facility], Smoking Cessation Medications and DC Order Prescriptions: New amlodipine [Norvasc] 5 mg Tablet 10 mg PO DAILY 30 Days Qty: 60 0RF Continued losartan 100 mg tablet 100 mg PO DAILY Qty: 90 3RF Myrbetriq 25 mg tablet extended release 24 hr 25 mg PO DAILY Qty: 90 3RF (DME) wheeled walker See Rx Instructions .Route .MEDSUPPLY Qty: 1 0RF Rx Instructions: As directed levothyroxine 137 mcg tablet 137 mcg PO DAILY Qty: 90 3RF duloxetine 40 mg capsule,delayed release(DR/EC) 40 mg PO DAILY Qty: 90 3RF carvedilol 6.25 mg tablet 6.25 mg PO BID Qty: 180 3RF Rx Instructions: must administer with a meal/food omega-3 acid ethyl esters 1 gram capsule 1 cap PO DAILY Tyrvaya 0.03 mg/spray spray, metered, non-aerosol 0.03 mg intranasal BID Rx Instructions: administer approximately 12 hours apart sodium chloride 1 gram tablet 1 g PO DAILY estradiol 0.01 % (0.1 mg/gram) cream 1 g vaginal DAILY Qty: 42.5 4RF Rx Instructions: Use daily for 14 days, then 2-3 times per week thereafter. ondansetron 4 mg tablet,disintegrating 4 mg PO Q8H PRN (Reason: nausea and vomiting) Qty: 60 3RF aspirin 81 mg Tablet,Delayed Release (Dr/Ec) 81 mg PO QAM cholecalciferol (vitamin D3) [Vitamin D3] 1,000 unit Tablet 1,000 unit PO QAM PreserVision AREDS [id number],160-113-100 [id number] Tablet 1 tab PO QAM [id number] Tablet 1 tab PO DAILY Soothe Night Time Lubricant 80-20 % Ointment 1 applic OPHTHALMIC (EYE) DIRECTED Refresh Optive Advanced 0.5-1-0.5 % Drops 1 drp OPB HS buspirone 5 mg tablet 5 mg PO QAM PRN (Reason: anxiety) Rx Instructions: 5 mg PO in am trazodone 50 mg tablet 50 mg PO HS famotidine 20 mg tablet 20 mg PO BID Rx Instructions: TAKE ONE TABLET BY MOUTH TWICE A DAY pantoprazole 40 mg tablet,delayed release (DR/EC) 40 mg PO DAILY Rx Instructions: TAKE ONE TABLET BY MOUTH EVERY DAY Discontinued amlodipine 5 mg tablet 5 mg PO DAILY Qty: 90 3RF Discharge Orders: Discharge Order (Routine); Ordered 08/29/22 Ordered By: Melinda Reid Admission Data Admit Date/Time: 08/24/22 23:20 Attending Provider: Melinda Reid Admit Provider: Jake Navarro Primary Care Provider: Deepti Francois Other Providers: Christian Alba ; Yanira Post ; [place] Other Interventions: Discharge Summary Assessment (RN) Last Done: 08/29/22 15:30 Coding Level of Care Code HOSP INP/OBS DISCH >30 MIN Diagnoses Hypertensive urgency I16.0 Hyponatremia E87.1 Anemia D64.9 Ambulatory dysfunction R26.2 Hypothyroidism E03.9 Hypothyroidism type: unspecified GERD (gastroesophageal reflux disease) K21.9 Urinary incontinence R32 Situational anxiety F41.8 Time Spent (min) 35
== END 2022-08-29 16:10 | disposition home or self-care (01) | DRG 305 ==
LOC: ED 19:23 → EDINP 23:20 → SUATTDRO 23:20 → 2W 08-25 02:01

== ENCOUNTER 2024-01-18 08:44 | Inpatient (IN) ==
--- NOTE | 2024-01-18 09:30 | XRay Report ---
SINGLE VIEW CHEST CLINICAL HISTORY: Generalized weakness. FINDINGS: An AP, portable, upright chest radiograph is compared to study dated 12/08/2023. The cardiom ediastinal silhouette is top normal for projection noting atherosclerotic calcification of the thorac ic aorta. Chronic interstitial thickening is similar to previous. There is bibasilar scarring/atelect asis. No airspace consolidation or large pleural effusion is identified. No pneumothorax is seen. The skeletal structures are osteopenic. The bony thorax is grossly intact. IMPRESSION: No acute cardiopulmonary abnormality. ACT 112: Negative or not required by law. Electronically signed by: Dawit Garber M.D. 01/18/2024 9:29 AM
[2024-01-18 09:31] LABS: Hematocrit (blood only) 26.6 % (37.0-47.0); Hemoglobin 8.7 g/dl (12.0-16.0); Mean Corpuscular Hemoglobin 30.4 pg (25.0-34.0); Mean Corpuscular Hgb Conc 32.7 g/dL (32.0-36.0); Mean Platelet Volume 9.5 fL (9.4-12.4); Platelet Count 200 K/uL (130-400); RDW Coefficient of Variation 12.8 % (11.5-14.5); RDW Standard Deviation 43.8 fL (36.4-46.3); Red Blood Count 2.86 M/uL (4.20-5.40)
[2024-01-18] MEDS: cefTRIAXone SODIUM 2,000 MG/50 ML BAG IV STA (09:44)
[2024-01-18] MEDS: SODIUM CHLORIDE 0.9% 500 ML IV SCH (09:44)
[2024-01-18 09:47] LABS: Alanine Aminotransferase 11 U/L (7-52); Albumin Globulin Ratio 0.8 (0.9-2); Albumin Level 2.9 gm/dl (3.4-5.0); Alkaline Phosphatase 53 U/L (34-104); Anion Gap 8 (3-11); Aspartate Aminotransferase 17 U/L (13-39); BUN Creatinine Ratio 17.9 (10-20); Bilirubin,Total 0.3 mg/dl (0.2-1.0); Blood Urea Nitrogen 31 mg/dl (6-23); Calcium 8.2 mg/dl (8.6-10.3); Carbon Dioxide 23 mmol/L (21-32); Chloride 98 mmol/L (98-107); Creatinine Clr Calc Pharmacy 17.4 ml/min; Est GFR (African American) 29.8 ml/min; Est GFR (Non-African American) 25.7 ml/min; Globulin 3.6 gm/dl (2.5-4.0); Glucose 150 mg/dl (70-99(Fasting)); Magnesium 1.8 mg/dl (1.7-2.4); Potassium 3.9 mmol/L (3.5-5.1); Sodium 129 mmol/L (136-145); Total Protein 6.5 gm/dl (6.0-8.3)
[2024-01-18 09:52] LABS: Troponin I High Sensitivity 19.3 pg/ml (0-14)
--- NOTE | 2024-01-18 09:54 | Emergency Department Note ---
Impression & Plan Acute confusion, Anemia, Leukocytosis, PATRICIA (acute kidney injury), Acute UTI, Elevated lactic acid level ED Provider Note NAME: YARIEL VALDEZ AGE: 89 SEX: F : 1935 ARRIVES VIA: Ambulance INFORMANT: [Patient][EMS, nursing] ED PROVIDER(S): [Dawit Andrade MD] CHIEF COMPLAINT: Urinary symptoms HISTORY OF PRESENT ILLNESS: The patient is an 89-year-old female who was diagnosed with a UTI. She has had 2 doses of Macrobid. She presents today with increasing confusion. Blood sugar was 200. There was no fever reported. Prior to arrival, the patient was given Tylenol. The patient is a poor historian, she currently has no complaints. PMHx/PSHx/Social Hx: See Below PHYSICAL EXAM: GENERAL: Patient is in no acute distress. HEENT: No acute trauma, normocephalic atraumatic, mucous membranes moist, no nasal congestion. NECK: No stridor, no adenopathy, no meningismus, trachea is midline. LUNGS: Clear to auscultation bilaterally when listening anterior, no wheeze, no rhonchi, breath sounds equal. HEART: 3/6 systolic murmur, regular rate and rhythm. ABDOMEN: Soft, nontender, no peritonitis. EXTREMITIES: No cyanosis, full range of motion of all the joints without pain or difficulty. NEUROLOGIC: Awake but does seem sleepy, no acute motor or sensory deficits, no focal weakness. SKIN: No jaundice, no diaphoresis. Rectal: Brown stool, heme-negative. DIFFERENTIAL DIAGNOSIS: UTI, stroke, electrolyte imbalance, anemia, renal failure, intracranial bleeding, dehydration, among others. EMERGENCY DEPARTMENT PROCEDURES: MEDICAL DECISION MAKING: There is a moderate leukocytosis, this would be consistent with infection. The patient was anemic. I did perform a rectal exam, stool was brown and heme- negative. There was a normal platelet count. Sodium was low however, this appears to be a chronic issue for her. There was some acute kidney injury today with a creatinine of 1.73. Lactic acid level was elevated consistent with dehydration and/or infection. The repeat lactic acid level showed clearing. There was no concerning liver enzyme elevation. The patient appeared to be in a euthyroid state. ECG showed a sinus rhythm with PACs, there was no obvious ST elevation. Cardiac enzyme testing x 1 was slightly elevated, likely secondary to mismatch from her infection. Today's urinalysis did not show obvious infection however, the patient had received 2 doses of Macrobid yesterday for a reported dirty urine. COVID test returned negative. Brain CT showed no acute bleed or mass effect. Chest x-ray did not show any evidence for pneumonia or CHF. On exam, the patient was not toxic, she was not febrile. She had no focal neurologic findings. Patient received IV saline, 1 L. She received IV Toradol for complaints of a headache. She was given IV ceftriaxone as antibiotic coverage. I do think the patient requires a hospital stay. She is worse today than yesterday, likely from a UTI that is inadequately treated with Macrobid. She was found to have some dehydration with acute kidney injury. She has a leukocytosis. A mild lactic acid elevation was found. I spoke with the patient and case management, the on-call hospitalist was consulted. Prior/Outside records/notes reviewed: Today's EMS notes describing her presentation and transport to this hospital. ECG per my interpretation: Indication was weakness. The ECG shows a sinus rhythm with PACs. The rate is 83. There is a right bundle branch block. There is no acute ST elevation. No PVCs. The QTc is 472. Continuous Cardiac Monitoring per my interpretation: An order was placed for continuous cardiac monitoring. The monitor shows a rate of 80 with sinus rhythm with PACs. Imaging/x-ray results per my interpretation: Chest x-ray shows some chronic change, no focal pneumonia, no CHF. Chronic Medical/Social conditions affecting care: Advanced age. Care/Management discussed with: Case management, the on-call hospitalist. Level of care consideration(s): After review of the information above and other included data: --I believe the patient requires escalation of care to admission DISPOSITION: Admission Past Med/Surg History Problem List (Updated 01/18/24 @ 16:06 by Dawit Andrade MD) Elevated lactic acid level (Acute) Acute UTI (Acute) PATRICIA (acute kidney injury) (Acute) Leukocytosis (Acute) Anemia (Acute) Acute confusion (Acute) Sepsis UTI (urinary tract infection), uncomplicated Anxiety Forgetfulness Confusion Orthostatic hypotension dysautonomic syndrome Recurrent falls Diarrhea Hyponatremia (Acute) Anemia Situational anxiety Sjogren's syndrome (Acute) Urinary incontinence Ambulatory dysfunction Hearing loss General weakness Weight loss Poor balance Poor eyesight Right shoulder pain Tinea corporis GERD (gastroesophageal reflux disease) Monoclonal gammopathy of undetermined significance (Chronic) Pulmonary nodule (Chronic) Hypothyroidism (Chronic) Hypertension (Chronic) Cystocele Insomnia Rectocele Peripheral edema Dysphagia Pessary maintenance Medical History Sprain of left ankle Sprain of left foot Hypertensive urgency Constipation Fall Hypomagnesemia Right elbow pain Dermatitis Neuropathy Left hand pain Cervical muscle strain Peripheral edema Trigeminal neuralgia Insomnia Sensorineural hearing loss (SNHL) of both ears Memory changes Increased urinary frequency Aortic valve sclerosis Arteriosclerosis of carotid artery Benign neoplasm of colon Cervical lymphadenopathy Chronic hoarseness Mixed hyperlipidemia Osteoporosis Rotator cuff tear, left Unsteady gait Vocal cord paralysis Trigeminal neuralgia RIGHT Spinal stenosis Osteoarthritis IBS (irritable bowel syndrome) GERD (gastroesophageal reflux disease) Macular degeneration Claustrophobia Cardiac murmur Hyperlipidemia HX OF Surgical History History of lumpectomy History of hysterectomy History of bladder surgery History of total abdominal hysterectomy and bilateral salpingo-oophorectomy History of colonoscopy History of throat surgery History of tooth extraction History of tonsillectomy History of adenoidectomy Family History Son Family history of diabetes mellitus Father Cancer Sister Cancer Breast cancer Heart disease H/O heart artery stent Mother Myocardial infarction Grandmother AAA (abdominal aortic aneurysm) Myocardial infarction Denies family history of Ovarian cancer Prostate cancer Colorectal cancer Social History Smoking Status: Unknown if ever smoked Second Hand Exposure: No; Do You Dip or Chew Tobacco: No; Hx Alcohol Use: No Hx Substance Use: No Preferred Language: [place] Communication Ability: Effective Communication Ability Comment: hard of hearing Visual Impairment: Limited Hearing Ability: Use of Hearing Aid Occupational Therapist Aide Required: No Beliefs That Will Affect Care: Yazidism marital status: / Current Living Situation: Prison current occupational status: retired How many Children do You have: 3 Feels Safe at Home: Yes Childhood Exposure to Second-Hand Smoke: No Diet: Soft caffeine: Yes during the past year weight has: remained stable Dental Care, Regularly: No Physical Activity Frequency: Does not Exercise Seatbelt Use: always Sunscreen Use: Yes Assistive Devices: Denture - Upper, Denture - Lower, Glasses, Hearing Aid - Left and Walker Allergies Allergies Allergy/AdvReac Type Severity Reaction Status Date / Time Sulfa (Sulfonamide Allergy Intermediate Rash Verified 01/18/24 11:45 Antibiotics) adhesive Allergy Mild rash Verified 01/18/24 11:45 enalaprilat [From Vasotec] Allergy Unknown Unknown Verified 01/18/24 11:45 atorvastatin AdvReac Severe Unconscious Verified 12/12/23 12:50 Home Meds Home Medications Medication Instructions Recorded Confirmed aspirin 81 mg tablet,delayed 81 mg PO QAM 10/12/18 01/18/24 release docusate sodium 100 mg capsule 100 mg PO DAILY PRN Constipation 06/30/23 01/18/24 ondansetron HCl 4 mg tablet 4 mg PO Q6H PRN Nausea And Vomiting 06/30/23 01/18/24 fluorometholone 0.1 % eye 1 drp OPB QID 08/31/23 01/18/24 drops,suspension acetaminophen 500 mg tablet 1,000 mg PO HS Trigeminal Neuralga 01/18/24 01/18/24 acetaminophen 500 mg tablet 1,000 mg PO Q6H PRN Pain 01/18/24 01/18/24 amlodipine 5 mg tablet (Norvasc) 5 mg PO BID 01/18/24 01/18/24 buspirone 5 mg tablet 10 mg PO TID anxiety 01/18/24 01/18/24 cholecalciferol (vitamin D3) 50 50 mcg PO QAM 01/18/24 01/18/24 mcg (2,000 unit) tablet (Vitamin D3) diclofenac sodium 1 % topical gel 2 g topical DAILY PRN Right 01/18/24 01/18/24 Shoulder Pain duloxetine 20 mg capsule,delayed 20 mg PO QAM 01/18/24 01/18/24 release food supplemt, lactose-reduced 1 ea PO QAM 01/18/24 01/18/24 (Protein Nutritional Shake oral liquid) levothyroxine 125 mcg tablet 125 mcg PO QAM 01/18/24 01/18/24 losartan 100 mg tablet 100 mg PO QAM 01/18/24 01/18/24 mirabegron 25 mg tablet,extended 25 mg PO QAM 01/18/24 01/18/24 release 24 hr (Myrbetriq) bnrwsbgdnowj-iphugflc-wocilq tablet 1 tab PO QAM 01/18/24 01/18/24 omega 8-gwg-gia-fish oil 1,200 mg 1 cap PO QAM 01/18/24 01/18/24 (144 mg-216 mg) capsule (Fish Oil) propylene glycol 0.6 % eye drops 1 drp OPB QID 01/18/24 01/18/24 (Systane Complete) sodium chloride 1,000 mg soluble 1,000 mg PO QAM 01/18/24 01/18/24 tablet Previous Rx's Medication Instructions Recorded lidocaine 4 % topical cream 1 applic topical BID PRN pain #15 02/09/23 grams trazodone 50 mg tablet 50 mg PO HS #90 tabs 02/23/23 Protein shake #1 ea 05/01/23 vit C 250 mg-vit E 90 mg-zinc 40 1 tab PO BID #180 caps 10/09/23 mg-copper 1 hr-gtjuby-kdqcyl capsule (PreserVision AREDS-2) famotidine 20 mg tablet 20 mg PO BID #180 tabs 10/13/23 carvedilol 6.25 mg tablet 6.25 mg PO BID #180 tabs 11/24/23 cyclosporine 0.05 % eye drops in a 1 drp ophthalmic (eye) Q12H #60 ea 01/15/24 dropperette nitrofurantoin 100 mg PO BID #14 caps 01/16/24 monohydrate/macrocrystals 100 mg capsule (Macrobid) Results & Data (ED) Vital Signs Vital Signs - 24 hr 01/18/24 08:39 01/18/24 08:39 01/18/24 08:54 Temperature 37.2 C Temperature Source Oral Pulse Rate 86 86 80 Pulse Rate from SpO2 Sensor Pulse Rhythm Regular Pulse Strength Normal Respiratory Rate 16 16 Respiratory Effort / Characteristics Non-Labored Respiratory Depth Normal Respiratory Pattern Regular Blood Pressure 156/62 H Blood Pressure Mean 93 Blood Pressure Position Sitting Pulse Oximetry 94 94 Oxygen Delivery Method Room Air Room Air Sepsis Recent Fever Within 48 Hours No Sepsis New/Unexplained Change in Mental Status Yes Sepsis Action Taken by Nursing No Action Required 01/18/24 08:54 01/18/24 09:12 01/18/24 09:24 Temperature Temperature Source Pulse Rate 82 87 80 Pulse Rate from SpO2 Sensor Pulse Rhythm Pulse Strength Respiratory Rate 17 22 21 Respiratory Effort / Characteristics Respiratory Depth Respiratory Pattern Blood Pressure Blood Pressure Mean Blood Pressure Position Pulse Oximetry Oxygen Delivery Method Sepsis Recent Fever Within 48 Hours Sepsis New/Unexplained Change in Mental Status Sepsis Action Taken by Nursing 01/18/24 09:30 01/18/24 09:30 01/18/24 10:06 Temperature Temperature Source Pulse Rate 78 Pulse Rate from SpO2 Sensor 78 Pulse Rhythm Pulse Strength Respiratory Rate 20 Respiratory Effort / Characteristics Respiratory Depth Respiratory Pattern Blood Pressure 123/62 123/62 Blood Pressure Mean 86 86 Blood Pressure Position Pulse Oximetry 95 Oxygen Delivery Method Sepsis Recent Fever Within 48 Hours Sepsis New/Unexplained Change in Mental Status Sepsis Action Taken by Nursing 01/18/24 11:00 01/18/24 11:00 01/18/24 11:00 Temperature Temperature Source Pulse Rate Pulse Rate from SpO2 Sensor Pulse Rhythm Pulse Strength Respiratory Rate Respiratory Effort / Characteristics Respiratory Depth Respiratory Pattern Blood Pressure 127/46 L 127/46 L 127/46 L Blood Pressure Mean 100 100 100 Blood Pressure Position Pulse Oximetry Oxygen Delivery Method Sepsis Recent Fever Within 48 Hours Sepsis New/Unexplained Change in Mental Status Sepsis Action Taken by Nursing 01/18/24 11:00 01/18/24 11:06 Temperature Temperature Source Pulse Rate 71 70 Pulse Rate from SpO2 Sensor Pulse Rhythm Pulse Strength Respiratory Rate 16 22 Respiratory Effort / Characteristics Respiratory Depth Respiratory Pattern Blood Pressure Blood Pressure Mean Blood Pressure Position Pulse Oximetry Oxygen Delivery Method Sepsis Recent Fever Within 48 Hours Sepsis New/Unexplained Change in Mental Status Sepsis Action Taken by Prison Medications Current Medication List: was personally reviewed by me Laboratory Data Attestation: I reviewed the patient's lab results. 01/18/24 09:07 01/18/24 09:07 Lab Results 01/18/24 01/18/24 Range/Units 09:07 09:23 WBC 15.10 H (4.8-10.8) K/ul RBC 2.86 L (4.20-5.40) M/uL Hgb 8.7 L (12.0-16.0) g/dl Hct 26.6 L (37.0-47.0) % MCV 93.0 (80.0-100.0) fL MCH 30.4 (25.0-34.0) pg MCHC 32.7 (32.0-36.0) g/dL RDW Std Deviation 43.8 (36.4-46.3) fL RDW Coeff of [place] 12.8 (11.5-14.5) % Plt Count 200 (130-400) K/uL MPV 9.5 (9.4-12.4) fL Immature Gran % (Auto) 0.7 % Neut % (Auto) 91.1 % Lymph % (Auto) 2.8 % [place] % (Auto) 3.8 % Eos % (Auto) 1.5 % Baso % (Auto) 0.1 % Neut # (Auto) 13.77 H (1.40-6.50) K/uL Lymph # (Auto) 0.42 L (1.20-3.40) K/uL [place] # (Auto) 0.57 (0.11-0.59) K/uL Eos # (Auto) 0.23 (0.00-0.50) K/uL Baso # (Auto) 0.01 (0.00-0.20) K/uL Immature Gran # (Auto) 0.10 (0.01-0.20) K/uL Polychromasia 1+ Sodium 129 L (136-145) mmol/L Potassium 3.9 (3.5-5.1) mmol/L Chloride 98 (98-107) mmol/L Carbon Dioxide 23 (21-32) mmol/L Anion Gap 8 (3-11) BUN 31 H (6-23) mg/dl Creatinine 1.73 H (0.6-1.2) mg/dl Est Cr Clr Drug Dosing 17.4 ml/min Est GFR ( Amer) 29.8 ml/min Est GFR (Non-Af Amer) 25.7 ml/min BUN/Creatinine Ratio 17.9 (10-20) Glucose 150 H (70-99(Fasting)) mg/dl Lactate 2.4 H* (0.4-2.0) mmol/L Calcium 8.2 L (8.6-10.3) mg/dl Magnesium 1.8 (1.7-2.4) mg/dl Iron < 10 L (35-150) mcg/dl TIBC TNP Unsaturated IBC 192 (155-355) mcg/dl Transferrin % Sat TNP Ferritin 74.4 (8-388) ng/ml Total Bilirubin 0.3 (0.2-1.0) mg/dl AST 17 (13-39) U/L ALT 11 (7-52) U/L Alkaline Phosphatase 53 (34-104) U/L Troponin I High Sens 19.3 H (0-14) pg/ml Total Protein 6.5 (6.0-8.3) gm/dl Albumin 2.9 L (3.4-5.0) gm/dl Globulin 3.6 (2.5-4.0) gm/dl Albumin/Globulin Ratio 0.8 L (0.9-2) Vitamin B12 742 (180-914) pg/ml Folate > 22.30 (>5.38) ng/ml TSH 0.315 (0.300-4.500) uIu/ml SARS-CoV-2, RNA, NAAT NEGATIVE (NEGATIVE) Administered Medications Discontinued Medications Acetaminophen (Acetaminophen 1000 Mg/100 Ml Iv) Confirm Administered Dose 1,000 mg IV .STK-MED ONE Stop: 01/18/24 10:40 Last Admin: 01/18/24 11:38 Dose: Not Given Documented By: YAMILA Sodium Chloride (Nss) 500 mls @ 999 mls/hr IV .Q31M ROHIT Stop: 01/18/24 09:30 Last Infusion: 01/18/24 13:52 Dose: Infused Documented By: Admin: 01/18/24 09:44 Dose: 999 mls/hr Documented By: YUMI Ceftriaxone Sodium (Rocephin) 2,000 mg in 50 mls @ 100 mls/hr IV NOW STA Stop: 01/18/24 09:30 Last Infusion: 01/18/24 13:52 Dose: Infused Documented By: Admin: 01/18/24 09:44 Dose: 100 mls/hr Documented By: YUMI Sodium Chloride (Nss) 500 mls @ 999 mls/hr IV .Q31M ONE Stop: 01/18/24 10:49 Last Infusion: 01/18/24 13:52 Dose: Infused Documented By: Admin: 01/18/24 10:38 Dose: 999 mls/hr Documented By: YUMI Lactated Ringer's (Lr) 1,000 mls @ 999 mls/hr IV .Q1H1M ONE Stop: 01/18/24 11:47 Last Infusion: 01/18/24 13:52 Dose: Infused Documented By: Admin: 01/18/24 11:12 Dose: 999 mls/hr Documented By: YAMILA Acetaminophen (Ofirmev) 1,000 mg in 100 mls @ 400 mls/hr IV NOW STA Stop: 01/18/24 11:01 Last Infusion: 01/18/24 15:02 Dose: Infused Documented By: Admin: 01/18/24 11:11 Dose: 400 mls/hr Documented By: YAMILA Ketorolac Tromethamine (Ketorolac Tromethamine 15 Mg/Ml Vial) 10 mg IV NOW ONE Stop: 01/18/24 10:18 Last Admin: 01/18/24 10:37 Dose: 10 mg Documented By: YUMI Imaging Data Radiologist's Impression: Chest X-Ray 01/18/24 08:57 SINGLE VIEW CHEST CLINICAL HISTORY: Generalized weakness. FINDINGS: An AP, portable, upright chest radiograph is compared to study dated 12/08/2023. The cardiomediastinal silhouette is top normal for projection noting atherosclerotic calcification of the thoracic aorta. Chronic interstitial thickening is similar to previous. There is bibasilar scarring/atelectasis. No airspace consolidation or large pleural effusion is identified. No pneumothorax is seen. The skeletal structures are osteopenic. The bony thorax is grossly intact. IMPRESSION: No acute cardiopulmonary abnormality. ACT 112: Negative or not required by law. Electronically signed by: Dawit Garber M.D. 01/18/2024 9:[address] 01/18/24 08:57 CT head/brain wo con CLINICAL HISTORY: 89 years-old Female with confusion. Acutely altered mental status TECHNIQUE: Multiple axial CT images of the head were obtained without contrast. A dose lowering technique was utilized adhering to the principles of ALARA. CT DOSE: 955. mGy.cm COMPARISON: 12/08/2023 FINDINGS: No acute intracranial hemorrhage, midline shift, intracranial mass, hydrocephalus, territorial ischemia or abnormal extra-axial collection. Involutional changes with chronic microvascular ischemic disease. Cerebral vascular calcifications. Mildly motion degraded exam. The calvarium is intact. The prior bilateral lens repair. Trace mastoid effusions. IMPRESSION: No acute intracranial abnormality. ACT 112: Negative or not required by law. The above report was generated using voice recognition software. It may contain grammatical, syntax or spelling errors. Electronically signed by: Chuy Albright M.D. 01/18/2024 11:11 AM Discharge Plan Visit Data Chief Complaint: Urinary Symptoms Stated Complaint: Altered Mental Status ED Provider: Dawit Andrade Discharge Problem: Acute confusion, Anemia, Leukocytosis, PATRICIA (acute kidney injury), Acute UTI, Elevated lactic acid level Patient Disposition: Admitted As Inpatient Condition: Fair Discharge Instructions Interventions: ED Discharge Assessment Last Done: 01/18/24 13:38 Discharge Problem: Anemia Qualifiers: Anemia type: unspecified type Qualified Code(s): D64.9 - Anemia, unspecified Leukocytosis Qualifiers: Leukocytosis type: unspecified Qualified Code(s): D72.829 - Elevated white blood cell count, unspecified
[2024-01-18 09:59] LABS: Basophils # (auto) 0.01 K/uL (0.00-0.20); Basophils % (auto) 0.1 %; Eosinophils # (auto) 0.23 K/uL (0.00-0.50); Eosinophils % (auto) 1.5 %; Immature Granulocytes % (auto) 0.7 %; Lymphocytes # (auto) 0.42 K/uL (1.20-3.40); Lymphocytes % (auto) 2.8 %; Monocytes # (auto) 0.57 K/uL (0.11-0.59); Monocytes % (auto) 3.8 %; Neutrophils # (auto) 13.77 K/uL (1.40-6.50); Neutrophils % (auto) 91.1 %; Polychromasia 1+
[2024-01-18 10:02] LABS: Thyroid Stimulating Hormone 0.315 uIu/ml (0.300-4.500)
--- NOTE | 2024-01-18 10:26 | History & Physical Report ---
Date of Service January 18, 2024 Assessment & Plan (1) Confusion: Plan: Admit to med/telemetry Currently stable nontoxic-appearing Was sent to the ED this a.m. from the [facility] due to ongoing confusion, fever, and recently diagnosed UTI Patient noted to have a leukocytosis of 15 with neutrophil predominance of 13, initial lactate of 2.4, with labs and exam findings consistent with dehydration Diagnosed with UTI and 01/16/2024 at her PCPs office, urine culture is currently in process, patient had been started on Macrobid on 01/16/2024 Status post 1 dose of ceftriaxone, 1 total liter NSS, and had been ordered a dose of Toradol which was held at the time of admission Patient is nonfocal on neurologic exam, her exam is more consistent with metabolic encephalopathy from UTI and dehydration, will follow-up on official read of her CT head brain without contrast Patient noted a leukocytosis with neutrophil predominance on CBC today but does not meet sepsis criteria as her vitals have been stable Will give an additional 1 L LR bolus on admission Continue to treat with IV antibiotics Fall/aspiration precautions Bilateral SCDs for DVT prophylaxis Will keep n.p.o. until CT read is back AM CBC, CMP, mag, PT/INR (2) UTI (urinary tract infection), uncomplicated: Plan: Initially diagnosed at PCPs office on 01/16/2024 and started on Macrobid Follow urine culture from 01/16/2024 which is currently in process Hold Macrobid Continue with ceftriaxone at this time as per previous culture results Follow-up blood cultures obtained in the ED (3) Hypertension: Plan: Currently stable we will plan on continuing amlodipine, carvedilol if CT head is negative for signs of stroke Will hold home losartan today to ensure she does not develop PATRICIA as her creatinine was slightly elevated today (4) Anemia: Plan: Patient noted to have worsening anemia with hemoglobin of 8.7 today, down from approximately 10 on 12/14/2023 No recent reports of bleeding The ED did perform a MILADYS and reported brown stool which was heme-negative Will obtain anemia workup on admission Monitor daily CBC (5) Hyponatremia: Plan: Sodium of 129 today, patient has a long history of hyponatremia with baseline in the low 130s Patient has noted to be significantly dehydrated on exam today and has had decreased oral intake with recent confusion Continue IV hydration Follow a.m. electrolytes (6) Sjogren's syndrome: Plan: Patient is significantly dehydrated at the time of admission likely c ombination of poor oral intake and known Sjogren's syndrome Will give additional IV fluids on admission for hydration Continue cyclosporine eyedrops (7) Hypothyroidism: Plan: Continue levothyroxine Plan The patient was discussed with Dr. Yip at the time of admission History of Present Illness Chief Complaint: Recently diagnosed UTI, increased confusion Primary Care Provider: GAYLA Cesar Kathy is a 89-year-old female with a past medical history significant for Sjogren's syndrome, anxiety, MGUS, hypertension, hypothyroidism, anemia, and hyponatremia who presented to the [facility] ED on 01/18/2024 via EMS from her personal-care facility due to ongoing confusion with recently diagnosed UTI. On arrival to the ED she was noted to be hypertensive at 156/62 but was otherwise stable. Labs were significant for a leukocytosis of 15 with neutrophil predominance of 13, hemoglobin of 8.7 (down from 10.8 as of 12/14/2023), lymphocyte count of 0.42, creatinine of 1.73 (baseline appears near 1.2), sodium of 129, initial lactate of 2.4, high-sensitivity troponin of 19, TSH within normal limits, and COVID-19 screen negative. Chest x-ray was read as negative for acute findings. CT of the head and brain without contrast had been obtained but was yet to be read at the time the patient was recommended for admission. Prior to admission the patient was given a dose of ceftriaxone, 10 mg IV Toradol, and 2 500 mL NSS boluses. Per chart review, the patient was seen at her PCP office on 01/16/2024 due to increased insomnia, anxiety, forgetfulness. She was diagnosed with a UTI and was started on Macrobid. BuSpar was also held at that time as the dose had recently been increased and there were concerns this may have been contributing to her anxiety and insomnia. Urine culture from 01/16/2024 is pending at this time. Patient was sitting in bed in no acute distress at the time of exam with her son bedside, history was obtained from both. Her son confirms that the patient has been having ongoing forgetfulness/confusion, insomnia, and anxiety. Confirms she was diagnosed with a UTI on 01/16/2024 and was prescribed an oral antibiotic. The patient adds that she is happy she is not as forgetful as she was a few days ago, she notes that she cannot even remember the name of some of the nurses which was embarrassing for her. She has a mild headache at the time of the exam but has no other complaints besides being very thirsty from her's Sjogren's syndrome. When asked, the patient's son feels as though she is acting more like herself compared to a few days ago. The patient denies current chest pain, shortness of breath, abdominal pain, nausea/vomiting, dysuria/hematuria, diarrhea, and her son confirms that she has not had recent falls. Her son explains that he received a call from the [facility] this morning stating that the patient was febrile and blood pressure was mildly elevated which is why she was sent to the ED. They confirmed that the patient is a full code and her daughter is her power of commonwealth attorney. Please refer to Dr. Yip's attestation for any changes to the treatment plan Allergies Allergy/AdvReac Type Severity Reaction Status Date / Time Sulfa (Sulfonamide Allergy Intermediate Rash Verified 01/18/24 11:45 Antibiotics) adhesive Allergy Mild rash Verified 01/18/24 11:45 enalaprilat [From Vasotec] Allergy Unknown Unknown Verified 01/18/24 11:45 atorvastatin AdvReac Severe Unconscious Verified 12/12/23 12:50 Home Medications Medication Instructions Recorded Confirmed Type aspirin 81 mg tablet,delayed 81 mg PO QAM 10/12/18 01/18/24 History release lidocaine 4 % topical cream 1 applic topical BID PRN pain #15 02/09/23 01/18/24 Rx grams trazodone 50 mg tablet 50 mg PO HS #90 tabs 02/23/23 01/18/24 Rx Protein shake #1 ea 05/01/23 12/12/23 Rx docusate sodium 100 mg capsule 100 mg PO DAILY PRN Constipation 06/30/23 01/18/24 History ondansetron HCl 4 mg tablet 4 mg PO Q6H PRN Nausea And Vomiting 06/30/23 01/18/24 History fluorometholone 0.1 % eye 1 drp OPB QID 08/31/23 01/18/24 History drops,suspension vit C 250 mg-vit E 90 mg-zinc 40 1 tab PO BID #180 caps 10/09/23 01/18/24 Rx mg-copper 1 hi-slobrj-vmueaj capsule (PreserVision AREDS-2) famotidine 20 mg tablet 20 mg PO BID #180 tabs 10/13/23 01/18/24 Rx carvedilol 6.25 mg tablet 6.25 mg PO BID #180 tabs 11/24/23 01/18/24 Rx cyclosporine 0.05 % eye drops in a 1 drp ophthalmic (eye) Q12H #60 ea 01/15/24 01/18/24 Rx dropperette nitrofurantoin 100 mg PO BID #14 caps 01/16/24 01/18/24 Rx monohydrate/macrocrystals 100 mg capsule (Macrobid) acetaminophen 500 mg tablet 1,000 mg PO HS Trigeminal Neuralga 01/18/24 01/18/24 History acetaminophen 500 mg tablet 1,000 mg PO Q6H PRN Pain 01/18/24 01/18/24 History amlodipine 5 mg tablet (Norvasc) 5 mg PO BID 01/18/24 01/18/24 History buspirone 5 mg tablet 10 mg PO TID anxiety 01/18/24 01/18/24 History cholecalciferol (vitamin D3) 50 50 mcg PO QAM 01/18/24 01/18/24 History mcg (2,000 unit) tablet (Vitamin D3) diclofenac sodium 1 % topical gel 2 g topical DAILY PRN Right 01/18/24 01/18/24 History Shoulder Pain duloxetine 20 mg capsule,delayed 20 mg PO QAM 01/18/24 01/18/24 History release food supplemt, lactose-reduced 1 ea PO QAM 01/18/24 01/18/24 History (Protein Nutritional Shake oral liquid) levothyroxine 125 mcg tablet 125 mcg PO QAM 01/18/24 01/18/24 History losartan 100 mg tablet 100 mg PO QAM 01/18/24 01/18/24 History mirabegron 25 mg tablet,extended 25 mg PO QAM 01/18/24 01/18/24 History release 24 hr (Myrbetriq) uyuffnskdabd-jomxyqzi-yswrvw tablet 1 tab PO QAM 01/18/24 01/18/24 History omega 4-gbf-amz-fish oil 1,200 mg 1 cap PO QAM 01/18/24 01/18/24 History (144 mg-216 mg) capsule (Fish Oil) propylene glycol 0.6 % eye drops 1 drp OPB QID 01/18/24 01/18/24 History (Systane Complete) sodium chloride 1,000 mg soluble 1,000 mg PO QAM 01/18/24 01/18/24 History tablet Past Med/Surg History Problem List (Updated 01/18/24 @ 16:06 by Dawit Andrade MD) Elevated lactic acid level (Acute) Acute UTI (Acute) PATRICIA (acute kidney injury) (Acute) Leukocytosis (Acute) Anemia (Acute) Acute confusion (Acute) Sepsis UTI (urinary tract infection), uncomplicated Anxiety Forgetfulness Confusion Orthostatic hypotension dysautonomic syndrome Recurrent falls Diarrhea Hyponatremia (Acute) Anemia Situational anxiety Sjogren's syndrome (Acute) Urinary incontinence Ambulatory dysfunction Hearing loss General weakness Weight loss Poor balance Poor eyesight Right shoulder pain Tinea corporis GERD (gastroesophageal reflux disease) Monoclonal gammopathy of undetermined significance (Chronic) Pulmonary nodule (Chronic) Hypothyroidism (Chronic) Hypertension (Chronic) Cystocele Insomnia Rectocele Peripheral edema Dysphagia Pessary maintenance Medical History Sprain of left ankle Sprain of left foot Hypertensive urgency Constipation Fall Hypomagnesemia Right elbow pain Dermatitis Neuropathy Left hand pain Cervical muscle strain Peripheral edema Trigeminal neuralgia Insomnia Sensorineural hearing loss (SNHL) of both ears Memory changes Increased urinary frequency Aortic valve sclerosis Arteriosclerosis of carotid artery Benign neoplasm of colon Cervical lymphadenopathy Chronic hoarseness Mixed hyperlipidemia Osteoporosis Rotator cuff tear, left Unsteady gait Vocal cord paralysis Trigeminal neuralgia RIGHT Spinal stenosis Osteoarthritis IBS (irritable bowel syndrome) GERD (gastroesophageal reflux disease) Macular degeneration Claustrophobia Cardiac murmur Hyperlipidemia HX OF Surgical History History of lumpectomy History of hysterectomy History of bladder surgery History of total abdominal hysterectomy and bilateral salpingo-oophorectomy History of colonoscopy History of throat surgery History of tooth extraction History of tonsillectomy History of adenoidectomy Family History Son Family history of diabetes mellitus Father Cancer Sister Cancer Breast cancer Heart disease H/O heart artery stent Mother Myocardial infarction Grandmother AAA (abdominal aortic aneurysm) Myocardial infarction Denies family history of Ovarian cancer Prostate cancer Colorectal cancer Social History Smoking Status: Never smoker Second Hand Exposure: No; Do You Dip or Chew Tobacco: No; Hx Alcohol Use: No Hx Substance Use: No Preferred Language: Lao Communication Ability: Impaired Communication Ability Comment: hard of hearing Visual Impairment: Limited Hearing Ability: Use of Hearing Aid Urban [employer]ster Required: No Beliefs That Will Affect Care: None marital status: / Current Living Situation: Personal Care Facility Current Living Situation Comment: [facility] current occupational status: retired How many Children do You have: 3 Feels Safe at Home: Yes Safety Concerns: Feels Safe At This Time Childhood Exposure to Second-Hand Smoke: No Diet: Soft caffeine: Yes during the past year weight has: remained stable Dental Care, Regularly: No Physical Activity Frequency: Does not Exercise Seatbelt Use: always Sunscreen Use: Yes Assistive Devices: Walker Physical Exam Physical Exam: Physical Exam: General: In no acute distress, stated age, ill-appearing but non-toxic HEENT: Normocephalic, atraumatic, no scleral icterus, pupils around round, symmetrical, and reactive to light, Very dry mucus membranes, trachea midline, no thyromegaly Chest/Pulm: No respiratory distress, symmetrical chest expansion, clear breath sounds throughout Cardiac: RRR, 3/6 systolic murmur noted loudest in the aortic region Abdomen: Negative for ascites and bruising, normoactive bowel sounds, soft, non-tender to palpation throughout Musculoskeletal: Symmetrical and without signs of acute trauma, upper and lower extremities with full ROM, no atrophy, spasticity, or flaccidity Extremities: Radial, dorsalis pedis, and posterior tibial pulses are intact and symmetrical, no edema noted in the BL LE's Skin: Warm, dry, no rashes , lesions, or scars noted Neuro: Alert and oriented to person, place, month, and year, no focal defects, CN II-XII tested and intact, negative cerebellar and pronator drift in the BL UE's, no tremors noted Psych: No acute distress, calm, slightly confused at times but pleasant and cooperative during the exam Results & Data Results & Data Vital Signs (Past 12 Hours) Vital Signs Temp Pulse Resp BP Pulse Ox O2 Del Method 01/18/24 08:54 80 01/18/24 08:39 86 16 94 Room Air 01/18/24 08:39 37.2 C 86 16 156/62 H 94 Room Air Laboratory Results Abnormal lab results 01/18/24 Range/Units 09:07 WBC 15.10 H (4.8-10.8) K/ul RBC 2.86 L (4.20-5.40) M/uL Hgb 8.7 L (12.0-16.0) g/dl Hct 26.6 L (37.0-47.0) % Neut # (Auto) 13.77 H (1.40-6.50) K/uL Lymph # (Auto) 0.42 L (1.20-3.40) K/uL Sodium 129 L (136-145) mmol/L BUN 31 H (6-23) mg/dl Creatinine 1.73 H (0.6-1.2) mg/dl Glucose 150 H (70-99(Fasting)) mg/dl Lactate 2.4 H* (0.4-2.0) mmol/L Calcium 8.2 L (8.6-10.3) mg/dl Troponin I High Sens 19.3 H (0-14) pg/ml Albumin 2.9 L (3.4-5.0) gm/dl Albumin/Globulin Ratio 0.8 L (0.9-2) Diagnostic Findings Chest X-Ray 01/18/24 08:57 SINGLE VIEW CHEST CLINICAL HISTORY: Generalized weakness. FINDINGS: An AP, portable, upright chest radiograph is compared to study dated 12/08/2023. The cardiomediastinal silhouette is top normal for projection noting atherosclerotic calcification of the thoracic aorta. Chronic interstitial thickening is similar to previous. There is bibasilar scarring/atelectasis. No airspace consolidation or large pleural effusion is identified. No pneumothorax is seen. The skeletal structures are osteopenic. The bony thorax is grossly intact. IMPRESSION: No acute cardiopulmonary abnormality. ACT 112: Negative or not required by law. Electronically signed by: Dawit Garber M.D. 01/18/2024 9:29 AM ECG Additional Comments: Sinus rhythm with marked sinus arrhythmia Right bundle branch block Abnormal ECG When compared with ECG of 13-NOV-2022 01:01, Premature atrial complexes are no longer Present Code Status & VTE Plan Code Status Full code VTE Prophylaxis Plan VTE Prophylaxis will be ordered: Yes Supervising Physician Co-Signing Physician Notes I personally saw and examined the patient. I verified all carranza points and agree with Santino Dawosn PA-C with the following exceptions and/or additions: 89-year-old female presents to the ER with confusion O/E A/P PG Care Time/CCT Total # of Minutes Spent Total Time Spent with Patient: Total time spent is greater than 50% in coordination of care (as documented) at patient's floor/unit and/or counseling patient: Coding [place] [address] INT INP/OBS CARE 2/55MIN Patient Type Established Medical Decision Making Moderate Complexity Diagnoses Confusion R41.0 UTI (urinary tract infection), uncomplicated N39.0 Essential hypertension I10 Hypertension type: essential hypertension Anemia D64.9 Hyponatremia E87.1 Sjogren's syndrome, with unspecified organ involvement M35.00 Sjogren organ or system involvement: unspecified organ involvement Hypothyroidism, unspecified type E03.9 Hypothyroidism type: unspecified (3) Hypertension Hypertension type: essential hypertension Qualified Code(s): I10 - Essential (primary) hypertension (6) Sjogren's syndrome Sjogren organ or system involvement: unspecified organ involvement Qualified Code(s): M35.00 - Sjogren syndrome, unspecified (7) Hypothyroidism Hypothyroidism type: unspecified Qualified Code(s): E03.9 - Hypothyroidism, unspecified
[2024-01-18] MEDS: KETOROLAC TROMETHAMINE 15 MG/ML VIAL IV ONE (10:37)
[2024-01-18] MEDS: SODIUM CHLORIDE 0.9% 500 ML IV ONE (10:38)
[2024-01-18] MEDS: ACETAMINOPHEN 1,000 MG/100 ML VIAL IV STA (11:11)
[2024-01-18] MEDS: LACTATED RINGER'S 1,000 ML IV ONE (11:12)
--- NOTE | 2024-01-18 11:12 | CT Scan Report ---
CT head/brain wo con CLINICAL HISTORY: 89 years-old Female with confusion. Acutely altered mental status TECHNIQUE: Multiple axial CT images of the head were obtained without contrast. A dose lowering tech nique was utilized adhering to the principles of ALARA. CT DOSE: 955. mGy.cm COMPARISON: 12/08/2023 FINDINGS: No acute intracranial hemorrhage, midline shift, intracranial mass, hydrocephalus, territorial ischem ia or abnormal extra-axial collection. Involutional changes with chronic microvascular ischemic disea se. Cerebral vascular calcifications. Mildly motion degraded exam. The calvarium is intact. The prior bilateral lens repair. Trace mastoid effusions. IMPRESSION: No acute intracranial abnormality. ACT 112: Negative or not required by law. The above report was generated using voice recognition software. It may contain grammatical, syntax o r spelling errors. Electronically signed by: Chuy Albright M.D. 01/18/2024 11:11 AM
[2024-01-18 11:25] LABS: Ferritin 74.4 ng/ml (8-388)
[2024-01-18 11:27] LABS: Iron < 10 mcg/dl (35-150); Unsaturated Iron Binding Cap 192 mcg/dl (155-355)
[2024-01-18 11:30] LABS: Folate (Folic Acid),Ser orPlas > 22.30 ng/ml (>5.38)
[2024-01-18 11:31] LABS: Vitamin B12 742 pg/ml (180-914)
[2024-01-18] MEDS: ACETAMINOPHEN 1000 MG/100 ML IV IV ONE (11:38)
--- NOTE | 2024-01-18 13:39 | Electrocardiogram Report ---
Test Reason : Blood Pressure : / mmHG Vent. Rate : 083 BPM Atrial Rate : 083 BPM P-R Int : 174 ms QRS Dur : 132 ms QT Int : 402 ms P-R-T Axes : 065 061 048 degrees QTc Int : 472 ms Sinus rhythm with PACs Right bundle branch block Abnormal ECG When compared with ECG of 13-NOV-2022 01:01, Premature atrial complexes are no longer Present Confirmed by Jean Claude Jones ([id number]) on 01/18/2024 1:39:26 PM Referred By: Confirmed By:Av Jones
[2024-01-18 13:44] LABS: Appearance Urine Clear (Clear); Bacteria Urine Automated None Seen (None Seen); Bilirubin Urine Negative (Negative); Blood Urine Negative (Negative); Cast Urine Automated 0-2 /lpf (0-2); Color Urine Yellow; Epithelial Cell Urine Auto 0-2 /hpf (0-2); Glucose Urine UA Negative (Negative); Ketones Urine Negative (Negative); Leukocyte Esterase Urine Negative (Negative); Nitrite Urine Negative (Negative); Protein Urine 3+ (Negative); RBC Urine Automated 0-2 /hpf (0-2); Specific Gravity Urine 1.015 (1.000-1.030); Urobilinogen Urine Negative (Negative); WBC Urine Automated 0-5 /hpf (0-5)
[2024-01-18] MEDS ORDERED: DOCUSATE SODIUM 100 MG CAP PO PRN (13:45)
[2024-01-18] MEDS ORDERED: ARTIFICIAL TEARS OP PRN (13:50)
[2024-01-18] MEDS ORDERED: PNEUMOCOCCAL VACCINE (PCV20) 20-VAL CONJ-DIP CRM/PF 0.5 ML SYR IM ONE (18:00)
[2024-01-18] MEDS: carvediloL 6.25 MG TAB PO SCH (18:31)
[2024-01-18] MEDS: amLODIPine BESYLATE 5 MG TAB PO SCH (20:31)
[2024-01-18] MEDS: FAMOTIDINE 20 MG TAB PO SCH (20:32)
[2024-01-18] MEDS: FLUOROMETHOLONE 0.1% OP SCH (20:32)
[2024-01-19] MEDS: LEVOTHYROXINE SODIUM 125 MCG TABLET PO SCH (05:29)
[2024-01-19 07:49] LABS: Basophils # (auto) 0.01 K/uL (0.00-0.20); Basophils % (auto) 0.1 %; Eosinophils # (auto) 0.67 K/uL (0.00-0.50); Eosinophils % (auto) 6.5 %; Hematocrit (blood only) 29.3 % (37.0-47.0); Hemoglobin 9.7 g/dl (12.0-16.0); Immature Granulocytes # (auto) 0.05 K/uL (0.01-0.20); Immature Granulocytes % (auto) 0.5 %; Lymphocytes # (auto) 0.83 K/uL (1.20-3.40); Mean Corpuscular Hemoglobin 30.3 pg (25.0-34.0); Mean Corpuscular Hgb Conc 33.1 g/dL (32.0-36.0); Mean Corpuscular Volume 91.6 fL (80.0-100.0); Mean Platelet Volume 9.7 fL (9.4-12.4); Monocytes # (auto) 0.52 K/uL (0.11-0.59); Neutrophils # (auto) 8.26 K/uL (1.40-6.50); Neutrophils % (auto) 79.9 %; Platelet Count 202 K/uL (130-400); RDW Standard Deviation 43.8 fL (36.4-46.3); White Blood Count 10.34 K/ul (4.8-10.8)
[2024-01-19 08:08] LABS: Calcium 8.3 mg/dl (8.6-10.3); Creatinine Clr Calc Pharmacy 23.2 ml/min; Est GFR (African American) 42.1 ml/min; Est GFR (Non-African American) 36.3 ml/min; Magnesium 1.8 mg/dl (1.7-2.4); Potassium 3.9 mmol/L (3.5-5.1)
[2024-01-19] MEDS: VIBEGRON 75 MG TAB PO SCH (08:21)
[2024-01-19] MEDS: SODIUM CHLORIDE 1 GM TABLET PO SCH (08:21)
[2024-01-19] MEDS: ASPIRIN 81 MG ECTAB PO SCH (08:22)
[2024-01-19] MEDS: LOSARTAN POTASSIUM 50 MG TAB PO SCH (08:22)
[2024-01-19] MEDS: DULoxetine HCL 20 MG CAP PO SCH (08:22)
[2024-01-19] MEDS: D5NSS + 20MEQ KCL 20 MEQ/1,000 ML BAG IV SCH (09:16)
[2024-01-19] MEDS: cefTRIAXone SODIUM 1,000 MG/50 ML BAG IV SCH (09:16)
[2024-01-19] MEDS: IRON SUCROSE 200 MG in 0.9 % SODIUM CHLORIDE 100 ML IV ONE (10:00)
--- NOTE | 2024-01-19 12:05 | Hospitalist Progress Note ---
Date of Service January 19, 2024 Assessment & Plan (1) Confusion: Plan: Suspect acute metabolic encephalopathy present on admission due to underlying UTI. Supportive care. Treat urinary tract infection. (2) UTI (urinary tract infection), uncomplicated: Plan: Continue intravenous Rocephin for now, day 2. Await final urine and blood culture results. She was treated with several days of oral Macrobid as an outpatient prior to this admission stable. Continue current medical management (3) Hypertension: Plan: Stable. Continue current medical management except for losartan which is on hold. (4) Anemia: Plan: Iron deficiency noted. No evidence of overt GI blood loss. Fecal occult blood is pending. Parenteral iron replacement day 1 of 3. Serial lab (5) Hyponatremia: Plan: Sodium 129 on admission. Serum osmolarity 275. Serial labs. This appears to be chronic with her (6) Sjogren's syndrome: Plan: This may account for her xerostomia. Supportive care.monitor intake and output (7) Hypothyroidism: Plan: Free T4 level is normal. Free T3 level is slightly low. Will continue current thyroid replacement therapy for now Plan Hopeful discharge back to the [facility] within the next day or 2 Admission and Anticipated Discharge Date Admission Date: January 18, 2024 Subjective Alert in no apparent distress but nurses state that she pulled out her IV this morning. She is anxious and asking for something for her nerves. Ativan ordered as needed. She is iron deficient and fecal occult blood is requested. Will continue IV fluids for now. Creatinine has improved from 1.7 on admission down to 1.8. She remains on intravenous Rocephin until blood and urine cultures are finalized. She is iron deficient and has been started on intravenous Venofer. Fecal occult blood test is pending. OT and PT assessments requested. Review of Systems 2 Review of Systems: Constitutional-no fever or chills ENT-no blurred vision, no double vision, no epistaxis, no sore throat Respiratory-no cough, no wheezing, no shortness of breath Cardiac-no palpitations, no chest pain, no syncope GI-no nausea, vomiting, diarrhea, melena, hematochezia -no urinary retention, no urinary incontinence, no dysuria, no hematuria Musculoskeletal-no joint pain, no muscle tenderness Skin-no bruising, no rashes, no pruritus Neuro-no isolated weakness, no paresthesia, no weakness Psych-no depression, no anxiety Physical Exam 2 Physical Exam: General-alert and oriented x3, no fever, no chills HEENT-head atraumatic and normocephalic, pupils equal and reactive to light, extraocular muscles intact Neck-no lymphadenopathy or thyromegaly, trachea midline Chest-clear to auscultation. No rales, wheezing or rhonchi Cardiac-regular rate and rhythm, normal S1 and S2 Abdomen-normal bowel sounds, no hepatosplenomegaly Extremities-no cyanosis, clubbing, or edema Neuro-cranial nerves II through XII intact, motor and sensory function within normal limits, strength symmetrical, no focal deficits Psych-anxious. Uncooperative Results & Data Results & Data Vital Signs (Past 12 Hours) Vital Signs Temp Pulse Pulse Pulse Resp BP Pulse Ox 01/19/24 11:35 36.8 C 81 18 137/69 91 01/19/24 07:43 103 H 01/19/24 07:27 37.0 C 91 H 14 148/64 H 91 01/19/24 02:49 36.5 C 84 18 156/68 H 95 O2 Del Method O2 Flow Rate 01/19/24 11:35 Room Air 01/19/24 07:43 01/19/24 07:27 Room Air 01/19/24 02:49 Nasal Cannula 2 Laboratory Results 01/19/24 07:02 01/19/24 07:02 PG Care Time/CCT Total # of Minutes Spent Total Time Spent with Patient: Total time spent is greater than 50% in coordination of care (as documented) at patient's floor/unit and/or counseling patient: Coding Level of Care Code 34665 SUB INP/OBS CARE 3/50MIN Diagnoses Confusion R41.0 UTI (urinary tract infection), uncomplicated N39.0 Essential hypertension I10 Hypertension type: essential hypertension Anemia D64.9 Hyponatremia E87.1 Sjogren's syndrome, with unspecified organ involvement M35.00 Sjogren organ or system involvement: unspecified organ involvement Hypothyroidism, unspecified type E03.9 Hypothyroidism type: unspecified (3) Hypertension Hypertension type: essential hypertension Qualified Code(s): I10 - Essential (primary) hypertension (6) Sjogren's syndrome Sjogren organ or system involvement: unspecified organ involvement Qualified Code(s): M35.00 - Sjogren syndrome, unspecified (7) Hypothyroidism Hypothyroidism type: unspecified Qualified Code(s): E03.9 - Hypothyroidism, unspecified
[2024-01-19] MEDS: LORazepam 0.5 MG TAB PO PRN (14:56)
[2024-01-19] MEDS: OLANZapine 10 MG/2.1 ML SDV IM PRN (19:56)
--- NOTE | 2024-01-19 21:53 | Communication Note ---
Date of Service: January 19, 2024 Alerted by nursing staff ~9:30PM concerning pt's sudden onset tachycardia to the 120-130s and hypoxia to the 60s. Nursing placed pt on NRB which increased her oxygen to 94%. Pt was resting in bed when this change of VS occurred. Pt is admitted with UTI/confusion. Upon my exam, pt appears restless and confusion. She repeatedly talks about playing cards with the kids. However, she does answer to her name and answers my questions seemingly appropriately. She endorses some SOB and trouble breathing but denies chest pain. She is intermittently coughing while I was in the room. Upon exam and on tele, she is tachycardic but in sinus rhythm. Her lungs are CTA. No swelling noted of her LE. She has not been on any chemical anticoagulation (SCDs only) while hospitalized. She has been on ceftriaxone for tx of her UTI. CTA obtained showing no PE with minimal pulmonary edema and small bilateral pleural effusions. No signs of PNA. At the time the CTA resulted, pt still requiring 8L with oxymask to maintain appropriate oxygenation and her HR was down to the 90s. Due to signs of hypervolemia seen on CTA, will give pt 20 mg lasix IV (pt was given 500cc bolus prior to CTA d/t PATRICIA upon admission). Echo ordered to evaluate heart function; last echo in 2019 showing normal LV function with EF 65-70%. Pt's hypoxia does not appear primarily infectious driven at this point (afebrile, decreasing WBC, lack of findings on imaging)- will defer additional ABX coverage. Also added flutter valve/incentive spirometer for atelectasis. As pt's Hgb stable and no active signs of bleeding, added heparin q12hr for DVT ppx. Resident Activity Tracking Resident Involvement: Resident Care Provided Care Provided: Adult Hospital Medicine
[2024-01-19] MEDS: SODIUM CHLORIDE 0.9% 500 ML IV ONE (21:57)
[2024-01-19] MEDS: OPTIRAY 320 125ml IV ONE (22:22)
--- NOTE | 2024-01-20 03:49 | CT Scan Report ---
Exam(s): CTA CHEST IV Amt: 117 ml opti 320 EXAM: CT Angiography Chest With Intravenous Contrast CLINICAL HISTORY: Reason for exam: concern for PE, tachycardia, hypoxic. TECHNIQUE: Axial computed tomographic angiography images of the chest with intravenous contrast. CTDI is 24.25 mGy and DLP is 745.67 mGy-cm. Automated exposure control was utilized for the study. A dose lowering technique was utilized adhering to the principles of ALARA. MIP reconstructed images were created and reviewed. COMPARISON: No relevant prior studies available. FINDINGS: Pulmonary arteries: Exam degraded by respiratory motion artifact, and small, distal pulmonary emboli may be missed. Otherwise, no central, hilar or lobar pulmonary embolus is visualized. Aorta: No acute findings. No thoracic aortic aneurysm. Lungs: Minimal interstitial pulmonary edema is identified, and this is associated with moderate, diffuse congestive bronchial wall thickening. Infectious or inflammatory etiology or bronchial wall thickening not excluded. There is mild bibasilar mucus plugging. Mild compressive subsegmental atelectasis in the dependent and basilar lower lobes. Underlying pneumonia less likely. Mild biapical pleural-parenchymal scarring. No mass. Pleural space: Small, layering bilateral pleural effusions demonstrated, left greater than right. No pneumothorax. Heart: Heart is within upper limits of normal in size. There is left ventricular hypertrophy. Severe coronary artery calcifications present. No pericardial effusion. No evidence of RV dysfunction. Bones/joints: Thoracic spine kyphosis. No acute fracture. No dislocation. Soft tissues: Unremarkable. Lymph nodes: Unremarkable. No enlarged lymph nodes. IMPRESSION: 1. Exam degraded by respiratory motion artifact, and small, distal pulmonary emboli may be missed. Otherwise, no central, hilar or lobar pulmonary embolus is visualized. 2. Minimal interstitial pulmonary edema is identified, and this is associated with moderate, diffuse congestive bronchial wall thickening. Infectious or inflammatory etiology or bronchial wall thickening not excluded. There is mild bibasilar mucus plugging. 3. Small, layering bilateral pleural effusions demonstrated, left greater than right. Mild compressive atelectasis bilateral lower lobes, left greater than right. Electronically signed by: Dick Mohamud MD 01/20/24 03:48 AM
[2024-01-20] MEDS: FUROSEMIDE INJ 20 MG/2 ML VIAL IV ONE (04:19)
[2024-01-20 07:16] LABS: Basophils # (auto) 0.01 K/uL (0.00-0.20); Basophils % (auto) 0.1 %; Eosinophils # (auto) 0.09 K/uL (0.00-0.50); Eosinophils % (auto) 0.9 %; Hemoglobin 10.3 g/dl (12.0-16.0); Immature Granulocytes # (auto) 0.04 K/uL (0.01-0.20); Immature Granulocytes % (auto) 0.4 %; Lymphocytes # (auto) 1.06 K/uL (1.20-3.40); Lymphocytes % (auto) 11.2 %; Mean Corpuscular Hemoglobin 30.3 pg (25.0-34.0); Mean Corpuscular Hgb Conc 33.2 g/dL (32.0-36.0); Mean Corpuscular Volume 91.2 fL (80.0-100.0); Mean Platelet Volume 9.5 fL (9.4-12.4); Monocytes # (auto) 0.69 K/uL (0.11-0.59); Monocytes % (auto) 7.3 %; Neutrophils % (auto) 80.1 %; Platelet Count 194 K/uL (130-400); RDW Coefficient of Variation 12.9 % (11.5-14.5); RDW Standard Deviation 42.9 fL (36.4-46.3); White Blood Count 9.49 K/ul (4.8-10.8)
[2024-01-20 07:54] LABS: BUN Creatinine Ratio 17.2 (10-20); Calcium 8.3 mg/dl (8.6-10.3); Est GFR (African American) 48.3 ml/min; Est GFR (Non-African American) 41.7 ml/min; Magnesium 1.7 mg/dl (1.7-2.4); Potassium 3.7 mmol/L (3.5-5.1)
[2024-01-20] MEDS ORDERED: methylPREDNISolone 125 MG/2 ML VIAL IV STA (08:39)
[2024-01-20] MEDS: HEPARIN SOD 5,000 UNIT/0.5 ML VIAL SQ SCH (08:51)
[2024-01-20] MEDS: methylPREDNISolone 125 MG in SYRINGE 0 ML IV ONE (09:36)
[2024-01-20] MEDS ORDERED: hydrALAZINE HCL 20 MG/ML VIAL IV PRN (10:29)
[2024-01-20] MEDS: IRON SUCROSE 200 MG in 0.9 % SODIUM CHLORIDE 100 ML IV ONE (11:17)
--- NOTE | 2024-01-20 11:17 | Hospitalist Progress Note ---
Date of Service January 20, 2024 Assessment & Plan (1) Acute respiratory failure with hypoxia: Plan: Supplemental oxygen to maintain saturation greater than 90%. Wean off as tolerated (2) Aspiration into airway: Plan: Suspected cause of acute shortness of breath with no evidence of PE or pulmonary edema on imaging. She is now on parenteral steroid therapy. (3) Confusion: Plan: Suspect acute metabolic encephalopathy present on admission due to underlying UTI. Supportive care. Treat urinary tract infection. (4) UTI (urinary tract infection), uncomplicated: Plan: Currently on Rocephin, day 3. Blood cultures are negative and urine culture is nondiagnostic. She was treated with several days of oral Macrobid as an outpatient prior to this admission stable. (5) Hypertension: Plan: Elevated but no evidence of flash pulmonary edema on chest x-ray. Will use hydralazine intravenously as needed for blood pressure control. (6) Anemia: Plan: Iron deficiency noted. No evidence of overt GI blood loss. Fecal occult blood remains pending. Parenteral iron replacement day 2 of 3. Serial lab (7) Hyponatremia: Plan: Sodium 129 on admission. Serum osmolarity 275. Serial labs. This appears to be chronic with her (8) Sjogren's syndrome: Plan: This may account for her xerostomia. Supportive care. Monitor intake and output (9) Hypothyroidism: Plan: Free T4 level is normal. Free T3 level is slightly low. Will continue current thyroid replacement therapy for now Plan Hopeful discharge back to the [facility] early next week Admission and Anticipated Discharge Date Admission Date: January 18, 2024 Subjective The patient had an event last evening, January 19, where she suddenly became hypoxic and short of breath. Chest CTA was negative for PE and chest x-ray does not show acute pulmonary edema. She probably had an aspiration event producing her symptoms. She has been started on parenteral steroid therapy. Oxygen will be tapered down as tolerated. I spoke to her family by phone today,01/19, and brought him up-to-date. Review of Systems 2 Review of Systems: Constitutional-no fever or chills ENT-no blurred vision, no double vision, no epistaxis, no sore throat Respiratory-no cough, no wheezing. Sudden onset of shortness of breath last evening Cardiac-no palpitations, no chest pain, no syncope GI-no nausea, vomiting, diarrhea, melena, hematochezia -no urinary retention, no urinary incontinence, no dysuria, no hematuria Musculoskeletal-no joint pain, no muscle tenderness Skin-no bruising, no rashes, no pruritus Neuro-no isolated weakness, no paresthesia, no weakness Psych-no depression, no anxiety Physical Exam 2 Physical Exam: General-alert and oriented x3, no fever, no chills HEENT-head atraumatic and normocephalic, pupils equal and reactive to light, extraocular muscles intact Neck-no lymphadenopathy or thyromegaly, trachea midline Chest-diminished breath sounds bilaterally. No appreciable wheezing. The patient is unable to cooperate with request for deep breathing for auscultation purposes Cardiac-regular rate and rhythm, normal S1 and S2 Abdomen-normal bowel sounds, no hepatosplenomegaly Extremities-no cyanosis, clubbing, or edema Neuro-cranial nerves II through XII intact, motor and sensory function within normal limits, strength symmetrical, no focal deficits Psych- Confused Results & Data Results & Data Vital Signs (Past 12 Hours) Vital Signs Temp Pulse Pulse Resp BP BP Pulse Ox 01/20/24 09:46 146/56 H 142/62 H 01/20/24 08:49 36.5 C 90 19 208/76 H 98 01/20/24 07:36 77 01/20/24 03:37 36.5 C 71 18 175/68 H 96 O2 Del Method O2 Flow Rate 01/20/24 09:46 01/20/24 08:49 Nasal Cannula 6 01/20/24 07:36 01/20/24 03:37 Oxymask 8 Laboratory Results 01/20/24 06:47 01/20/24 06:47 PG Care Time/CCT Total # of Minutes Spent Total Time Spent with Patient: Total time spent is greater than 50% in coordination of care (as documented) at patient's floor/unit and/or counseling patient: Coding Level of Care Code 21938 SUB INP/OBS CARE 3/50MIN Diagnoses Acute respiratory failure with hypoxia J96.01 Aspiration into airway T17.908A Confusion R41.0 UTI (urinary tract infection), uncomplicated N39.0 Essential hypertension I10 Hypertension type: essential hypertension Anemia D64.9 Hyponatremia E87.1 Sjogren's syndrome, with unspecified organ involvement M35.00 Sjogren organ or system involvement: unspecified organ involvement Hypothyroidism, unspecified type E03.9 Hypothyroidism type: unspecified (5) Hypertension Hypertension type: essential hypertension Qualified Code(s): I10 - Essential (primary) hypertension (8) Sjogren's syndrome Sjogren organ or system involvement: unspecified organ involvement Qualified Code(s): M35.00 - Sjogren syndrome, unspecified (9) Hypothyroidism Hypothyroidism type: unspecified Qualified Code(s): E03.9 - Hypothyroidism, unspecified
--- NOTE | 2024-01-20 12:08 | XCELERA ---
[id number] \\[email or web address]\[id number]
[2024-01-20] MEDS ORDERED: methylPREDNISolone 1000 MG/16 ML IV SCH (14:00)
[2024-01-20] MEDS: methylPREDNISolone 40 MG in SYRINGE 0 ML IV SCH (14:07)
[2024-01-21 06:16] LABS: Hematocrit (blood only) 25.8 % (37.0-47.0); Hemoglobin 8.6 g/dl (12.0-16.0); Immature Granulocytes # (auto) 0.03 K/uL (0.01-0.20); Immature Granulocytes % (auto) 0.5 %; Lymphocytes # (auto) 1.12 K/uL (1.20-3.40); Lymphocytes % (auto) 17.3 %; Mean Corpuscular Hemoglobin 30.1 pg (25.0-34.0); Mean Corpuscular Hgb Conc 33.3 g/dL (32.0-36.0); Mean Corpuscular Volume 90.2 fL (80.0-100.0); Mean Platelet Volume 10.3 fL (9.4-12.4); Monocytes # (auto) 0.33 K/uL (0.11-0.59); Monocytes % (auto) 5.1 %; Neutrophils # (auto) 4.99 K/uL (1.40-6.50); Neutrophils % (auto) 77.1 %; Platelet Count 188 K/uL (130-400); RDW Standard Deviation 42.9 fL (36.4-46.3); Red Blood Count 2.86 M/uL (4.20-5.40); White Blood Count 6.47 K/ul (4.8-10.8)
[2024-01-21 06:35] LABS: Creatinine Clr Calc Pharmacy 20.1 ml/min; Est GFR (African American) 35.4 ml/min; Est GFR (Non-African American) 30.6 ml/min; Magnesium 1.7 mg/dl (1.7-2.4)
[2024-01-21] MEDS: ACETAMINOPHEN 325 MG TAB PO PRN (08:38)
[2024-01-21] MEDS: IRON SUCROSE 200 MG in 0.9 % SODIUM CHLORIDE 100 ML IV ONE (09:12)
--- NOTE | 2024-01-21 09:55 | XRay Report ---
XR chest 1V portable HISTORY: aspiration, hypoxia COMPARISON: Chest 01/18/2024. FINDINGS: No pneumothorax. The heart remains mildly enlarged. Small bilateral pleural effusions and m ild pulmonary edema have progressed. No acute fractures. IMPRESSION: Interval progression of the mild interstitial pulmonary edema and small bilateral pleural effusions. ACT 112: Negative or not required by law. Electronically signed by: Lee Rose M.D. 01/21/2024 9:53 AM
--- NOTE | 2024-01-21 10:25 | Hospitalist Progress Note ---
Date of Service January 21, 2024 Assessment & Plan (1) Acute respiratory failure with hypoxia: Plan: Supplemental oxygen to maintain saturation greater than 90%. Wean off as tolerated. Oxygen requirements have dropped dramatically (2) Aspiration into airway: Plan: Suspected cause of acute shortness of breath with no evidence of PE or pulmonary edema on imaging. Parenteral steroid therapy appears to have helped considerably with suspected pneumonitis from the aspiration. Solu-Medrol has been down titrated to every 12 hour dosing today, January 20. (3) Confusion: Plan: Suspect acute metabolic encephalopathy present on admission due to underlying UTI. Now resolved. Continue supportive care. Treat urinary tract infection. (4) UTI (urinary tract infection), uncomplicated: Plan: Currently on Rocephin, day 3. Blood cultures are negative and urine culture is nondiagnostic. She was treated with several days of oral Macrobid as an outpatient prior to this admission stable. She will not require any further antibiotic therapy at discharge (5) Hypertension: Plan: Losartan has been discontinued and blood pressure remains stable. Use hydralazine intravenously as needed for blood pressure control. (6) Anemia: Plan: Iron deficiency noted. No evidence of overt GI blood loss. Fecal occult blood remains pending. Parenteral iron replacement day 3 of 3. Serial lab (7) Hyponatremia: Plan: Sodium 129 on admission. Serum osmolarity 275. Serial labs. This appears to be chronic with her . Losartan may be contributing and has been discontinued (8) Sjogren's syndrome: Plan: This may account for her xerostomia. Supportive care. Monitor intake and output (9) Hypothyroidism: Plan: Free T4 level is normal. Free T3 level is slightly low. Will continue current thyroid replacement therapy for now Plan Hopeful discharge back to the [facility] early next week. Possibly tomorrow, January 21 Admission and Anticipated Discharge Date Admission Date: January 18, 2024 Subjective Alert and oriented. Oxygen requirements have dropped dramatically. Chest x-ray reveals some evidence of pulmonary vascular congestion probably from IV fluids given the other day. 1 dose of intravenous Lasix has been ordered. Solu-Medrol has been tapered down to every 12 hour dosing. Blood pressure and heart rate are acceptable. No further IV fluids warranted at this time. Day 3 of parenteral Venofer today, January 20. Losartan has been discontinued and blood pressure is stable. Chest CTA negative for PE. Rocephin day 3 for suspected UTI present on admission. Blood cultures obtained January 17 are negative. Hopefully she can return to the [place] [facility] within the next day or 2 Review of Systems 2 Review of Systems: Constitutional-no fever or chills ENT-no blurred vision, no double vision, no epistaxis, no sore throat Respiratory-no cough, no wheezing. Sudden onset of shortness of breath last evening Cardiac-no palpitations, no chest pain, no syncope GI-no nausea, vomiting, diarrhea, melena, hematochezia -no urinary retention, no urinary incontinence, no dysuria, no hematuria Musculoskeletal-no joint pain, no muscle tenderness Skin-no bruising, no rashes, no pruritus Neuro-no isolated weakness, no paresthesia, no weakness Psych-no depression, no anxiety Physical Exam 2 Physical Exam: General-alert and oriented x3, no fever, no chills HEENT-head atraumatic and normocephalic, pupils equal and reactive to light, extraocular muscles intact Neck-no lymphadenopathy or thyromegaly, trachea midline Chest-diminished breath sounds bilaterally. No appreciable wheezing. The patient is unable to cooperate with request for deep breathing for auscultation purposes Cardiac-regular rate and rhythm, normal S1 and S2 Abdomen-normal bowel sounds, no hepatosplenomegaly Extremities-no cyanosis, clubbing, or edema Neuro-cranial nerves II through XII intact, motor and sensory function within normal limits, strength symmetrical, no focal deficits Psych- Confused Results & Data Results & Data Vital Signs (Past 12 Hours) Vital Signs Temp Pulse Pulse Resp BP Pulse Ox O2 Del Method 01/21/24 08:13 Nasal Cannula 01/21/24 07:38 36.6 C 83 18 137/64 95 Nasal Cannula 01/21/24 07:04 77 01/21/24 03:34 36.6 C 82 16 151/63 H 92 Nasal Cannula 01/20/24 23:40 36.6 C 84 16 172/71 H 96 Nasal Cannula O2 Flow Rate 01/21/24 08:13 2 01/21/24 07:38 1 01/21/24 07:04 01/21/24 03:34 1 01/20/24 23:40 1 Laboratory Results 01/21/24 05:15 01/21/24 05:15 PG Care Time/CCT Total # of Minutes Spent Total Time Spent with Patient: Total time spent is greater than 50% in coordination of care (as documented) at patient's floor/unit and/or counseling patient: Coding Level of Care Code 79587 SUB INP/OBS CARE 3/50MIN Diagnoses Acute respiratory failure with hypoxia J96.01 Aspiration into airway T17.908A Confusion R41.0 UTI (urinary tract infection), uncomplicated N39.0 Essential hypertension I10 Hypertension type: essential hypertension Anemia D64.9 Hyponatremia E87.1 Sjogren's syndrome, with unspecified organ involvement M35.00 Sjogren organ or system involvement: unspecified organ involvement Hypothyroidism, unspecified type E03.9 Hypothyroidism type: unspecified (5) Hypertension Hypertension type: essential hypertension Qualified Code(s): I10 - Essential (primary) hypertension (8) Sjogren's syndrome Sjogren organ or system involvement: unspecified organ involvement Qualified Code(s): M35.00 - Sjogren syndrome, unspecified (9) Hypothyroidism Hypothyroidism type: unspecified Qualified Code(s): E03.9 - Hypothyroidism, unspecified
[2024-01-21] MEDS: FUROSEMIDE 40 MG/4 ML VIAL IV ONE (10:43)
[2024-01-21] MEDS: methylPREDNISolone 40 MG in SYRINGE 0 ML IV SCH (17:14)
[2024-01-21] MEDS: DEXAMETHASONE 0.1% OP SOLN 5 ML BTL OP SCH (17:14)
[2024-01-22 07:13] LABS: Basophils # (auto) 0.01 K/uL (0.00-0.20); Basophils % (auto) 0.1 %; Hematocrit (blood only) 26.5 % (37.0-47.0); Hemoglobin 8.9 g/dl (12.0-16.0); Immature Granulocytes # (auto) 0.16 K/uL (0.01-0.20); Immature Granulocytes % (auto) 1.2 %; Lymphocytes # (auto) 1.27 K/uL (1.20-3.40); Lymphocytes % (auto) 9.4 %; Mean Corpuscular Hemoglobin 30.1 pg (25.0-34.0); Mean Corpuscular Hgb Conc 33.6 g/dL (32.0-36.0); Mean Corpuscular Volume 89.5 fL (80.0-100.0); Mean Platelet Volume 9.9 fL (9.4-12.4); Monocytes # (auto) 0.58 K/uL (0.11-0.59); Monocytes % (auto) 4.3 %; Neutrophils # (auto) 11.55 K/uL (1.40-6.50); Platelet Count 242 K/uL (130-400); RDW Coefficient of Variation 13.2 % (11.5-14.5); RDW Standard Deviation 43.1 fL (36.4-46.3); Red Blood Count 2.96 M/uL (4.20-5.40); White Blood Count 13.57 K/ul (4.8-10.8)
[2024-01-22 07:39] LABS: Calcium 8.7 mg/dl (8.6-10.3); Creatinine Clr Calc Pharmacy 18.4 ml/min; Est GFR (African American) 31.8 ml/min; Est GFR (Non-African American) 27.4 ml/min; Potassium 3.8 mmol/L (3.5-5.1)
--- NOTE | 2024-01-22 10:02 | Discharge Summary ---
Date of Service January 22, 2024 Admission HPI Per Admitting Provider Kathy is a 89-year-old female with a past medical history significant for Sjogren's syndrome, anxiety, MGUS, hypertension, hypothyroidism, anemia, and hyponatremia who presented to the [facility] ED on 01/18/2024 via EMS from her personal-care facility due to ongoing confusion with recently diagnosed UTI. On arrival to the ED she was noted to be hypertensive at 156/62 but was otherwise stable. Labs were significant for a leukocytosis of 15 with neutrophil predominance of 13, hemoglobin of 8.7 (down from 10.8 as of 12/14/2023), lymphocyte count of 0.42, creatinine of 1.73 (baseline appears near 1.2), sodium of 129, initial lactate of 2.4, high-sensitivity troponin of 19, TSH within normal limits, and COVID-19 screen negative. Chest x-ray was read as negative for acute findings. CT of the head and brain without contrast had been obtained but was yet to be read at the time the patient was recommended for admission. Prior to admission the patient was given a dose of ceftriaxone, 10 mg IV Toradol, and 2 500 mL NSS boluses. Per chart review, the patient was seen at her PCP office on 01/16/2024 due to increased insomnia, anxiety, forgetfulness. She was diagnosed with a UTI and was started on Macrobid. BuSpar was also held at that time as the dose had recently been increased and there were concerns this may have been contributing to her anxiety and insomnia. Urine culture from 01/16/2024 is pending at this time. Patient was sitting in bed in no acute distress at the time of exam with her son bedside, history was obtained from both. Her son confirms that the patient has been having ongoing forgetfulness/confusion, insomnia, and anxiety. Confirms she was diagnosed with a UTI on 01/16/2024 and was prescribed an oral antibiotic. The patient adds that she is happy she is not as forgetful as she was a few days ago, she notes that she cannot even remember the name of some of the nurses which was embarrassing for her. She has a mild headache at the time of the exam but has no other complaints besides being very thirsty from her's Sjogren's syndrome. When asked, the patient's son feels as though she is acting more like herself compared to a few days ago. The patient denies current chest pain, shortness of breath, abdominal pain, nausea/vomiting, dysuria/hematuria, diarrhea, and her son confirms that she has not had recent falls. Her son explains that he received a call from the [place] this morning stating that the patient was febrile and blood pressure was mildly elevated which is why she was sent to the ED. They confirmed that the patient is a full code and her daughter is her power of attorney recruiter. Please refer to Dr. Yip's attestation for any changes to the treatment plan Principal Diagnosis Suspected aspiration episode, acute pneumonitis, acute hypoxic respiratory failure, UTI, metabolic encephalopathy, iron deficiency anemia, exacerbation SIADH with hyponatremia, pulmonary vascular congestion from fluid overload Discharge Exam General-alert and oriented x3, no fever, no chills HEENT-head atraumatic and normocephalic, pupils equal and reactive to light, extraocular muscles intact Neck-no lymphadenopathy or thyromegaly, trachea midline Chest-clear to auscultation. No rales, wheezing or rhonchi Cardiac-regular rate and rhythm, normal S1 and S2 Abdomen-normal bowel sounds, no hepatosplenomegaly Extremities-no cyanosis, clubbing, or edema Neuro-cranial nerves II through XII intact, motor and sensory function within normal limits, strength symmetrical, no focal deficits Psych-normal affect, normal mood Discharge Data Allergies Allergy/AdvReac Type Severity Reaction Status Date / Time Sulfa (Sulfonamide Allergy Intermediate Rash Verified 01/18/24 11:45 Antibiotics) adhesive Allergy Mild rash Verified 01/18/24 11:45 enalaprilat [From Vasotec] Allergy Unknown Unknown Verified 01/18/24 11:45 atorvastatin AdvReac Severe Unconscious Verified 12/12/23 12:50 Consultations 01/18/24 10:22 ED Decision to Admit Stat Ordered Studies 01/18/24 08:57 CT head/brain wo con Stat 01/19/24 21:51 CT angio chest PE protocol Stat Hospital Course (1) Acute respiratory failure with hypoxia: Resolved. She is now on room air. Parenteral steroid therapy has been discontinued. (2) Aspiration into airway: Suspected cause of acute shortness of breath with no evidence of PE or pulmonary edema on imaging. Treated while hospitalized with parenteral steroid therapy. (3) Confusion: Suspect acute metabolic encephalopathy present on admission due to underlying UTI. Now resolved. Continue supportive care. Treat urinary tract infection. (4) UTI (urinary tract infection), uncomplicated: Treated while hospitalized with 4 days of intravenous Rocephin. She will not require any further antibiotic treatment at discharge. Blood cultures are negative and urine culture is nondiagnostic. She was treated with several days of oral Macrobid as an outpatient prior to this admission stable. (5) Hypertension: Losartan has been discontinued and blood pressure remains stable. Systolic blood pressure is mildly elevated but in this age group it is acceptable. Use hydralazine intravenously as needed for blood pressure control. (6) Anemia: Iron deficiency noted. No evidence of overt GI blood loss. Fecal occult blood was ordered but apparently never done. She received 3 days of parenteral iron therapy. (7) Hyponatremia: Sodium 129 on admission. Serum osmolarity 275. Serial labs. This appears to be chronic with her . Losartan may be contributing and has been discontinued. Sodium 133 today, January 21 (8) Sjogren's syndrome: This may account for her xerostomia. Supportive care. Monitor intake and output (9) Hypothyroidism: Free T4 level is normal. Free T3 level is slightly low. Will continue current thyroid replacement therapy for now Plan Discharge back to the [facility] todayJanuary 21 Total Time Total Time Spent Total Time Spent (In Minutes): 45 minutes Discharge Plan Discharge Items Patient Disposition: Personal Retirement Reason For Visit: UTI, DEHYDRATION, CONFUSION Discharge Diagnosis: Aspiration into airway, acute hypoxic respiratory failure, acute pneumonitis, metabolic encephalopathy, UTI, iron deficiency anemia, pulmonary vascular congestion from fluid overload, acute exacerbation SIADH with hyponatremia and hypoosmolarity Condition on Discharge: Good Activity: Resume your previous activity Non-emergency contact: Primary Care Provider Call non-emergency contact if: your symptoms worsen Follow-up/Referrals: Deepti Francois CRNP [Primary Care Provider] - Diet: Regular Addtl Attending Provider Instructions: Losartan has been discontinued as a possible contributor to low sodium levels Pending Studies at Discharge: No Stand-Alone Forms: [facility], Smoking Cessation Skilled Items Patient informed of condition?: Yes DNR: Yes Discharge Level of Care: Other Communicable Disease: No Discharge Prognosis: Stable Lines: None Urinary Catheter: No Medications and DC Order Prescriptions: Continued lidocaine 4 % cream 1 applic topical BID PRN (Reason: pain) Qty: 15 11RF Rx Instructions: Apply a small amount in front of and above the ear, and lower lutheran where the main branch of the nerve starts. Keep away from eyes and mouth. trazodone 50 mg tablet 50 mg PO HS Qty: 90 3RF (DME) Protein shake See Rx Instructions .Route .MEDSUPPLY Qty: 1 0RF Rx Instructions: daily Juice Plus protein shake mixed with milk. PreserVision AREDS-2 250-90-40-1 mg capsule 1 tab PO BID Qty: 180 3RF famotidine 20 mg tablet 20 mg PO BID Qty: 180 3RF Rx Instructions: TAKE ONE TABLET BY MOUTH TWICE A DAY carvedilol 6.25 mg tablet 6.25 mg PO BID Qty: 180 3RF Rx Instructions: must administer with a meal/food cyclosporine 0.05 % dropperette 1 drp ophthalmic (eye) Q12H Qty: 60 1RF Rx Instructions: Instill one drop into each eye in the morning and before bed 12 hours apart ondansetron HCl 4 mg tablet 4 mg PO Q6H PRN (Reason: Nausea And Vomiting) docusate sodium 100 mg capsule 100 mg PO DAILY PRN (Reason: Constipation) fluorometholone 0.1 % drops,suspension 1 drp OPB QID Rx Instructions: 1 drp into the eye(s) One drop each eye QID; nitrofurantoin monohyd/m-cryst [Macrobid] 100 mg capsule 100 mg PO BID Qty: 14 0RF Rx Instructions: No start/End date on SEP from [facility]. must administer with a meal/food aspirin 81 mg Tablet,Delayed Release (Dr/Ec) 81 mg PO QAM acetaminophen [Tylenol Ex Str Rapid Release] 500 mg Tablet 1,000 mg PO Q6H MDD 3g/24hr PRN (Reason: Pain) acetaminophen [Tylenol Ex Str Rapid Release] 500 mg Tablet 1,000 mg PO HS MDD 3g/24hr Protein Nutritional Shake Liquid 1 ea PO QAM Centrum Silver Tablet 1 tab PO QAM diclofenac sodium [Voltaren] 1 % Gel 2 g TOPICAL DAILY PRN (Reason: Right Shoulder Pain) cholecalciferol (vitamin D3) [Vitamin D3] 50 mcg (2,000 unit) Tablet 50 mcg PO QAM omega 4-gnz-zxg-fish oil [Fish Oil] 1,200 (144-216) mg Capsule 1 cap PO QAM buspirone 5 mg tablet 10 mg PO TID Rx Instructions: change rx on bottle to read TID thanks amlodipine [Norvasc] 5 mg tablet 5 mg PO BID levothyroxine 125 mcg tablet 125 mcg PO QAM duloxetine 20 mg capsule,delayed release(DR/EC) 20 mg PO QAM sodium chloride 1,000 mg tablet,soluble 1,000 mg PO QAM Systane Complete 0.6 % Drops 1 drp OPB QID mirabegron [Myrbetriq] 25 mg tablet extended release 24 hr 25 mg PO QAM Discontinued losartan 100 mg tablet 100 mg PO QAM Discharge Orders: Discharge Order (Routine); Ordered 01/22/24 Ordered By: Vincent Baird Admission Data Admit Date/Time: 01/18/24 11:14 Attending Provider: Vincent Baird Admit Provider: Ulises Yip Primary Care Provider: Deepti Francois Other Providers: Ulises Yip Coding Level of Care Code 19122 INP/OBS DISCH >30 MIN Diagnoses Acute respiratory failure with hypoxia J96.01 Aspiration into airway T17.908A Confusion R41.0 UTI (urinary tract infection), uncomplicated N39.0 Essential hypertension I10 Hypertension type: essential hypertension Anemia D64.9 Hyponatremia E87.1 Sjogren's syndrome, with unspecified organ involvement M35.00 Sjogren organ or system involvement: unspecified organ involvement Hypothyroidism, unspecified type E03.9 Hypothyroidism type: unspecified
== END 2024-01-22 13:26 | disposition home or self-care (01) | DRG 689 ==
LOC: ED 08:44 → EDINP 11:14 → SUATTDRO 11:14 → 2N 13:38

== ENCOUNTER 2024-02-02 19:15 | Inpatient (IN) ==
--- NOTE | 2024-02-02 19:27 | Emergency Department Note ---
History of Present Illness General Chief complaint: Headache Stated complaint: HEADACHE, AGITATION Source: patient, family (Daughter and son who are at the bedside), EMS, RN notes reviewed and old records reviewed (01/23/24-blood and urine cultures which were negative) Mode of arrival: EMS Limitations: no limitations History of Present Illness This patient 89-year-old female who was sent in by ambulance after apparently being more agitated than normal and having a headache. She does have dementia according to the chart. She is very hard of hearing is difficult to get history reviewing her chart she was seen here 10 days ago with abdominal pain was diagnosed with a UTI however cultures of the blood and urine were negative. She has had no fall no fever she is on no blood thinners. EMS who I talked to told me that they said she was combative but she was not combative for EMS and did not require anything on route. Home Medications Medication Instructions Recorded Confirmed Type aspirin 81 mg tablet,delayed 81 mg PO QAM 10/12/18 01/25/24 History release lidocaine 4 % topical cream 1 applic topical BID PRN pain #15 02/09/23 01/25/24 Rx grams Protein shake #1 ea 05/01/23 01/25/24 Rx docusate sodium 100 mg capsule 100 mg PO DAILY PRN Constipation 06/30/23 01/25/24 History ondansetron HCl 4 mg tablet 4 mg PO Q6H PRN Nausea And Vomiting 06/30/23 01/25/24 History fluorometholone 0.1 % eye 1 drp OPB QID 08/31/23 01/25/24 History drops,suspension vit C 250 mg-vit E 90 mg-zinc 40 1 tab PO BID #180 caps 10/09/23 01/25/24 Rx mg-copper 1 wk-amjqtt-dfulsf capsule (PreserVision AREDS-2) famotidine 20 mg tablet 20 mg PO BID #180 tabs 10/13/23 01/25/24 Rx carvedilol 6.25 mg tablet 6.25 mg PO BID #180 tabs 11/24/23 01/25/24 Rx cyclosporine 0.05 % eye drops in a 1 drp ophthalmic (eye) Q12H #60 ea 01/15/24 01/25/24 Rx dropperette nitrofurantoin 100 mg PO BID #14 caps 01/16/24 01/25/24 Rx monohydrate/macrocrystals 100 mg capsule (Macrobid) acetaminophen 500 mg tablet 1,000 mg PO HS Trigeminal Neuralga 01/18/24 01/25/24 History acetaminophen 500 mg tablet 1,000 mg PO Q6H PRN Pain 01/18/24 01/25/24 History amlodipine 5 mg tablet (Norvasc) 5 mg PO BID 01/18/24 01/25/24 History buspirone 5 mg tablet 10 mg PO TID anxiety 01/18/24 01/25/24 History cholecalciferol (vitamin D3) 50 50 mcg PO QAM 01/18/24 01/25/24 History mcg (2,000 unit) tablet (Vitamin D3) diclofenac sodium 1 % topical gel 2 g topical DAILY PRN Right 01/18/24 01/25/24 History Shoulder Pain duloxetine 20 mg capsule,delayed 20 mg PO QAM 01/18/24 01/25/24 History release food supplemt, lactose-reduced 1 ea PO QAM 01/18/24 01/25/24 History (Protein Nutritional Shake oral liquid) levothyroxine 125 mcg tablet 125 mcg PO QAM 01/18/24 01/25/24 History mirabegron 25 mg tablet,extended 25 mg PO QAM 01/18/24 01/25/24 History release 24 hr (Myrbetriq) pxpojjeltugv-rgccvipb-mdyept tablet 1 tab PO QAM 01/18/24 01/25/24 History omega 4-ogx-nrl-fish oil 1,200 mg 1 cap PO QAM 01/18/24 01/25/24 History (144 mg-216 mg) capsule (Fish Oil) propylene glycol 0.6 % eye drops 1 drp OPB QID 01/18/24 01/25/24 History (Systane Complete) sodium chloride 1,000 mg soluble 1,000 mg PO QAM 01/18/24 01/25/24 History tablet melatonin 5 mg capsule 5 mg PO .nightly #30 caps 01/25/24 01/25/24 Rx Oxygen Home #1 ea 01/30/24 Rx Portable Oxygen #1 ea 01/30/24 Rx cephalexin 500 mg capsule 500 mg PO BID 5 days #10 caps 01/30/24 01/30/24 Rx risperidone 0.5 mg tablet 0.5 mg PO DAILY #30 tabs 07/23/24 Rx (Risperdal) trazodone 50 mg tablet 25 mg (1/2 x 50 mg) PO HS #30 tabs 01/30/24 Rx Allergies Allergy/AdvReac Type Severity Reaction Status Date / Time Sulfa (Sulfonamide Allergy Intermediate Rash Verified 01/25/24 10:12 Antibiotics) adhesive Allergy Mild rash Verified 01/25/24 10:12 enalaprilat [From Vasotec] Allergy Unknown Unknown Verified 01/25/24 10:12 atorvastatin AdvReac Severe Unconscious Verified 01/25/24 10:12 Past Med/Surg History Problem List (Updated 02/02/24 @ 23:55 by Anatoliy Jenkins MD) Recent urinary tract infection (Acute) Combative behavior (Acute) Altered mental status (Acute) Headache (Acute) Sundowning Dementia Acute urinary retention (Acute) Leukocytosis (Acute) Abdominal pain (Acute) Acute respiratory failure with hypoxia Aspiration into airway Elevated lactic acid level (Acute) Acute UTI (Acute) PATRICIA (acute kidney injury) (Acute) Anemia (Acute) Acute confusion (Acute) Sepsis UTI (urinary tract infection), uncomplicated Anxiety Forgetfulness Confusion Orthostatic hypotension dysautonomic syndrome Recurrent falls Diarrhea Hyponatremia (Acute) Anemia Situational anxiety Sjogren's syndrome (Acute) Urinary incontinence Ambulatory dysfunction Hearing loss (Acute) General weakness Weight loss Poor balance Poor eyesight Right shoulder pain Tinea corporis GERD (gastroesophageal reflux disease) Monoclonal gammopathy of undetermined significance (Chronic) Pulmonary nodule (Chronic) Hypothyroidism (Chronic) Hypertension (Chronic) Cystocele Insomnia Rectocele Peripheral edema Dysphagia Pessary maintenance Medical History Sprain of left ankle Sprain of left foot Hypertensive urgency Constipation Fall Hypomagnesemia Right elbow pain Dermatitis Neuropathy Left hand pain Cervical muscle strain Peripheral edema Trigeminal neuralgia Insomnia Sensorineural hearing loss (SNHL) of both ears Memory changes Increased urinary frequency Aortic valve sclerosis Arteriosclerosis of carotid artery Benign neoplasm of colon Cervical lymphadenopathy Chronic hoarseness Mixed hyperlipidemia Osteoporosis Rotator cuff tear, left Unsteady gait Vocal cord paralysis Trigeminal neuralgia RIGHT Spinal stenosis Osteoarthritis IBS (irritable bowel syndrome) GERD (gastroesophageal reflux disease) Macular degeneration Claustrophobia Cardiac murmur Hyperlipidemia HX OF Surgical History History of lumpectomy History of hysterectomy History of bladder surgery BLADDER TACK History of total abdominal hysterectomy and bilateral salpingo-oophorectomy History of colonoscopy History of throat surgery THURNWALDT CYST BENIGN History of tooth extraction History of tonsillectomy History of adenoidectomy Family History Son Family history of diabetes mellitus Father Cancer Sister Cancer Breast cancer Heart disease H/O heart artery stent Mother Myocardial infarction Grandmother AAA (abdominal aortic aneurysm) Myocardial infarction Denies family history of Ovarian cancer Prostate cancer Colorectal cancer Social History Smoking Status: Never smoker Second Hand Exposure: No; Do You Dip or Chew Tobacco: No; Hx Alcohol Use: No Hx Substance Use: No Preferred Language: Rwandan Communication Ability: Impaired Communication Ability Comment: hard of hearing Visual Impairment: Limited Hearing Ability: Use of Hearing Aid Deputy Director Required: No Beliefs That Will Affect Care: None marital status: / Current Living Situation: Personal Care Facility Current Living Situation Comment: [facility] current occupational status: retired How many Children do You have: 3 Feels Safe at Home: Yes Childhood Exposure to Second-Hand Smoke: No Diet: Soft caffeine: Yes during the past year weight has: remained stable Dental Care, Regularly: No Physical Activity Frequency: Does not Exercise Seatbelt Use: always Sunscreen Use: Yes Assistive Devices: Walker Review of Systems A total of 10 systems reviewed and were otherwise negative Physical Exam Vital Signs Vital Signs - 24 hr 02/02/24 19:25 02/02/24 19:35 02/02/24 19:44 Temperature 37.1 C 37.1 C Temperature Source Oral Oral Pulse Rate 84 82 Pulse Rate [Left Radial] Pulse Rhythm Regular Pulse Rhythm [Left Radial] Pulse Strength Normal Pulse Strength [Left Radial] Respiratory Rate 16 16 Respiratory Effort / Characteristics Non-Labored Spontaneous Non-Labored Spontaneous Respiratory Depth Normal Normal Respiratory Pattern Regular Regular Blood Pressure 176/73 H Blood Pressure [Right Arm] 176/73 H Blood Pressure Mean 107 Blood Pressure Mean [Right Arm] 107 Blood Pressure Position [Right Arm] Pulse Oximetry 97 97 Oxygen Delivery Method Room Air Room Air Sepsis Recent Fever Within 48 Hours No Sepsis New/Unexplained Change in Mental Status Yes Sepsis Action Taken by Nursing No Action Required 02/02/24 19:47 02/02/24 20:24 02/02/24 20:55 Temperature Temperature Source Pulse Rate 82 Pulse Rate [Left Radial] 84 88 Pulse Rhythm Regular Pulse Rhythm [Left Radial] Regular Regular Pulse Strength Pulse Strength [Left Radial] Normal Normal Respiratory Rate 16 16 16 Respiratory Effort / Characteristics Non-Labored Spontaneous Non-Labored Spontaneous Respiratory Depth Normal Normal Respiratory Pattern Regular Regular Blood Pressure Blood Pressure [Right Arm] 168/70 H 153/59 H Blood Pressure Mean Blood Pressure Mean [Right Arm] 102 90 Blood Pressure Position [Right Arm] Lying Lying Pulse Oximetry 98 97 97 Oxygen Delivery Method Room Air Room Air Room Air Sepsis Recent Fever Within 48 Hours Sepsis New/Unexplained Change in Mental Status Sepsis Action Taken by Nursing 02/02/24 21:41 Temperature Temperature Source Pulse Rate Pulse Rate [Left Radial] 88 Pulse Rhythm Pulse Rhythm [Left Radial] Regular Pulse Strength Pulse Strength [Left Radial] Normal Respiratory Rate 16 Respiratory Effort / Characteristics Non-Labored Spontaneous Respiratory Depth Normal Respiratory Pattern Blood Pressure Blood Pressure [Right Arm] 141/91 H Blood Pressure Mean Blood Pressure Mean [Right Arm] 107 Blood Pressure Position [Right Arm] Lying Pulse Oximetry 100 Oxygen Delivery Method Room Air Sepsis Recent Fever Within 48 Hours Sepsis New/Unexplained Change in Mental Status Sepsis Action Taken by Nursing General: Well developed well nourished qcp-fdf-ochmbrogn older female is hard of hearing but appears in no acute distress, breathing comfortably on room air. Normal speech, nonslurred. She is alert to person HEENT: Normal cephalic atraumatic. Pupils are equal round and reactive to light. Extraocular movements are intact. Oropharynx is pink with moist mucous membranes. No swelling of the mouth lips or tongue. Neck: Supple with a midline trachea. No meningeal signs or stiffness, no JVD or bruits. No Stridor. Chest: Clear to auscultation bilaterally. No wheezes or rhonchi. No increased work of breathing. Heart: Regular rate and rhythm without murmurs or gallops. Abdomen: Soft nontender, nondistended without rebound guarding or rigidity. Extremities: No cyanosis clubbing or edema. No calf tenderness or assymetry Spine/Back. Non tender to palpation. No CVA tenderness Skin: Good turgor without rashes. Neurologic exam: Cranial nerves two through 12 are intact. Motor and sensation are intact and symmetrical throughout. Course Administered Medications Discontinued Medications Sodium Chloride (Nss) 500 mls @ 999 mls/hr IV .Q31M STA Stop: 02/02/24 19:52 Last Infusion: 02/02/24 20:48 Dose: Infused Documented By: Admin: 02/02/24 19:43 Dose: 999 mls/hr Documented By: GEOVANNI Ceftriaxone Sodium (Rocephin) 2,000 mg in 50 mls @ 100 mls/hr IV NOW STA Stop: 02/02/24 22:45 Last Infusion: 02/02/24 23:46 Dose: Infused Documented By: Admin: 02/02/24 22:51 Dose: 100 mls/hr Documented By: GEOVANNI Medical Decision Making Differential Diagnosis Headache, intracranial hemorrhage, infection, UTI, sepsis, electrolyte or metabolic abnormality Medical Records Attestation: I reviewed the patient's medical records. Home Medications Current Medication List: was personally reviewed by sc Laboratory Data Attestation: I reviewed the patient's lab results. 02/02/24 19:40 02/02/24 19:40 Lab Results 02/02/24 02/02/24 02/02/24 Range/Units 19:40 20:16 20:28 WBC 9.83 (4.8-10.8) K/ul RBC 3.43 L (4.20-5.40) M/uL Hgb 10.4 L (12.0-16.0) g/dl Hct 31.5 L (37.0-47.0) % MCV 91.8 (80.0-100.0) fL MCH 30.3 (25.0-34.0) pg MCHC 33.0 (32.0-36.0) g/dL RDW Std Deviation 47.3 H (36.4-46.3) fL RDW Coeff of Neto 14.4 (11.5-14.5) % Plt Count 376 (130-400) K/uL MPV 9.7 (9.4-12.4) fL Immature Gran % (Auto) 1.2 % Neut % (Auto) 68.3 % Lymph % (Auto) 17.6 % [place] % (Auto) 7.0 % Eos % (Auto) 5.6 % Baso % (Auto) 0.3 % Neut # (Auto) 6.71 H (1.40-6.50) K/uL Lymph # (Auto) 1.73 (1.20-3.40) K/uL [place] # (Auto) 0.69 H (0.11-0.59) K/uL Eos # (Auto) 0.55 H (0.00-0.50) K/uL Baso # (Auto) 0.03 (0.00-0.20) K/uL Immature Gran # (Auto) 0.12 (0.01-0.20) K/uL ESR 98 H (0-30) mm/hr Sodium 134 L (136-145) mmol/L Potassium 4.4 (3.5-5.1) mmol/L Chloride 98 (98-107) mmol/L Carbon Dioxide 27 (21-32) mmol/L Anion Gap 9 (3-11) BUN 26 H (6-23) mg/dl Creatinine 1.62 H (0.6-1.2) mg/dl Est Cr Clr Drug Dosing 19.0 ml/min Est GFR ( Amer) 32.3 ml/min Est GFR (Non-Af Amer) 27.9 ml/min BUN/Creatinine Ratio 16.0 (10-20) Glucose 127 H (70-99(Fasting)) mg/dl Lactate (0.4-2.0) mmol/L Calcium 9.6 (8.6-10.3) mg/dl Total Bilirubin 0.2 (0.2-1.0) mg/dl AST 15 (13-39) U/L ALT 16 (7-52) U/L Alkaline Phosphatase 72 (34-104) U/L Total Protein 8.0 (6.0-8.3) gm/dl Albumin 3.6 (3.4-5.0) gm/dl Globulin 4.4 H (2.5-4.0) gm/dl Albumin/Globulin Ratio 0.8 L (0.9-2) Lipase 38 (11-82) U/L Procalcitonin 0.05 (0-0.5) ng/ml Urine Color Yellow Urine Appearance Clear (Clear) Urine pH 8.0 H (4.5-7.5) Ur Specific [place] 1.008 (1.000-1.030) Urine Protein 2+ H (Negative) Urine Glucose (UA) Negative (Negative) Urine Ketones Negative (Negative) Urine Blood Negative (Negative) Urine Nitrite Negative (Negative) Urine Bilirubin Negative (Negative) Urine Urobilinogen Negative (Negative) Ur Leukocyte Esterase Negative (Negative) Urine WBC (Auto) 0-5 (0-5) /hpf Urine RBC (Auto) 0-2 (0-2) /hpf U Hyaline Cast (Auto) 6-10 H (0-2) /lpf U Epithel Cells (Auto) 0-2 (0-2) /hpf Urine Bacteria (Auto) None Seen (None Seen) Hyaline Casts Present A (None Presnt) /lpf Adenovirus (PCR) Not Detected (NotDetected) B. pertussis DNA (PCR) Not Detected (NotDetected) B.parapertussis DNA PCR Not Detected (NotDetected) C. pneumoniae DNA (PCR) Not Detected (NotDetected) Coronavirus OC43 (PCR) Not Detected (NotDetected) Coronavirus HKU1 (PCR) Not Detected (NotDetected) Coronavirus 229E (PCR) Not Detected (NotDetected) SARS-CoV-2 (PCR) Not Detected (NotDetected) Coronavirus NL63 (PCR) Not Detected (NotDetected) Human Metapneumovir PCR Not Detected (NotDetected) Influenza Type A (PCR) Not Detected (NotDetected) Influenza Type B (PCR) Not Detected (NotDetected) M. pneumoniae (PCR) Not Detected (NotDetected) Parainfluenza 1 (PCR) Not Detected (NotDetected) Parainfluenza 2 (PCR) Not Detected (NotDetected) Parainfluenza 3 (PCR) Not Detected (NotDetected) Parainfluenza 4 (PCR) Not Detected (NotDetected) RSV (PCR) Not Detected (NotDetected) Entero/Rhino (PCR) Not Detected (NotDetected) 02/02/24 Range/Units 22:38 WBC (4.8-10.8) K/ul RBC (4.20-5.40) M/uL Hgb (12.0-16.0) g/dl Hct (37.0-47.0) % MCV (80.0-100.0) fL MCH (25.0-34.0) pg MCHC (32.0-36.0) g/dL RDW Std Deviation (36.4-46.3) fL RDW Coeff of Neto (11.5-14.5) % Plt Count (130-400) K/uL MPV (9.4-12.4) fL Immature Gran % (Auto) % Neut % (Auto) % Lymph % (Auto) % [place] % (Auto) % Eos % (Auto) % Baso % (Auto) % Neut # (Auto) (1.40-6.50) K/uL Lymph # (Auto) (1.20-3.40) K/uL [place] # (Auto) (0.11-0.59) K/uL Eos # (Auto) (0.00-0.50) K/uL Baso # (Auto) (0.00-0.20) K/uL Immature Gran # (Auto) (0.01-0.20) K/uL ESR (0-30) mm/hr Sodium (136-145) mmol/L Potassium (3.5-5.1) mmol/L Chloride (98-107) mmol/L Carbon Dioxide (21-32) mmol/L Anion Gap (3-11) BUN (6-23) mg/dl Creatinine (0.6-1.2) mg/dl Est Cr Clr Drug Dosing ml/min Est GFR ( Amer) ml/min Est GFR (Non-Af Amer) ml/min BUN/Creatinine Ratio (10-20) Glucose (70-99(Fasting)) mg/dl Lactate 0.6 (0.4-2.0) mmol/L Calcium (8.6-10.3) mg/dl Total Bilirubin (0.2-1.0) mg/dl AST (13-39) U/L ALT (7-52) U/L Alkaline Phosphatase (34-104) U/L Total Protein (6.0-8.3) gm/dl Albumin (3.4-5.0) gm/dl Globulin (2.5-4.0) gm/dl Albumin/Globulin Ratio (0.9-2) Lipase (11-82) U/L Procalcitonin (0-0.5) ng/ml Urine Color Urine Appearance (Clear) Urine pH (4.5-7.5) Ur Specific [place] (1.000-1.030) Urine Protein (Negative) Urine Glucose (UA) (Negative) Urine Ketones (Negative) Urine Blood (Negative) Urine Nitrite (Negative) Urine Bilirubin (Negative) Urine Urobilinogen (Negative) Ur Leukocyte Esterase (Negative) Urine WBC (Auto) (0-5) /hpf Urine RBC (Auto) (0-2) /hpf U Hyaline Cast (Auto) (0-2) /lpf U Epithel Cells (Auto) (0-2) /hpf Urine Bacteria (Auto) (None Seen) Hyaline Casts (None Presnt) /lpf Adenovirus (PCR) (NotDetected) B. pertussis DNA (PCR) (NotDetected) B.parapertussis DNA PCR (NotDetected) C. pneumoniae DNA (PCR) (NotDetected) Coronavirus OC43 (PCR) (NotDetected) Coronavirus HKU1 (PCR) (NotDetected) Coronavirus 229E (PCR) (NotDetected) SARS-CoV-2 (PCR) (NotDetected) Coronavirus NL63 (PCR) (NotDetected) Human Metapneumovir PCR (NotDetected) Influenza Type A (PCR) (NotDetected) Influenza Type B (PCR) (NotDetected) M. pneumoniae (PCR) (NotDetected) Parainfluenza 1 (PCR) (NotDetected) Parainfluenza 2 (PCR) (NotDetected) Parainfluenza 3 (PCR) (NotDetected) Parainfluenza 4 (PCR) (NotDetected) RSV (PCR) (NotDetected) Entero/Rhino (PCR) (NotDetected) Imaging Data Attestation: I personally reviewed and interpreted this imaging study as follows: My Impression: Head CTno hemorrhage or mass effect seen. Chest x-rayno focal infiltrate she does have increased interstitial markings which is more likely chronic does not appear significantly different from her x- ray 10 days ago. Radiologist's Impression: Head CT 02/02/24 19:22 Exam(s): CT HEAD Without Contrast EXAM: CT Head Without Intravenous Contrast CLINICAL HISTORY: Reason for exam: headache. TECHNIQUE: Axial computed tomography images of the head/brain without intravenous contrast. CTDI is 39.02 mGy and DLP is 546.36 mGy-cm. Automated exposure control was utilized for the study. A dose lowering technique was utilized adhering to the principles of ALARA. COMPARISON: 01/18/2024 FINDINGS: Brain: Unremarkable. No hemorrhage. No significant white matter disease. No edema. Ventricles: Unremarkable. No ventriculomegaly. Bones/joints: Unremarkable. No acute fracture. Soft tissues: Unremarkable. Sinuses: Unremarkable as visualized. No acute sinusitis. Mastoid air cells: Unremarkable as visualized. No mastoid effusion. IMPRESSION: Normal head/brain CT. Electronically signed by: Duarte Hilliard MD 02/02/24 22:06 PM ECG Data Attestation: I personally reviewed and interpreted this ECG as follows: Indication: + weakness MDM Narrative This patient comes in as described above. She was placed on a phototypesetting equipment monitor in room C9. she is brought in by EMS she apparently has been having headache since yesterday. she is very hard of hearing and does have some dementia she was maybe a [facility] however she was not combative for EMS or here. Reviewing her old chart she was seen recently and had negative urine and blood cultures 10 days ago. She does have a Gutierrez catheter in place with clear urine on my exam. IV access was established, blood work was obtained, given her complaint of headache I also ordered a CT of her head. Sed rate was also ordered. Her labs look reassuring CAT scan of her head and chest x-ray look reassuring as does her EKG I talked to Dr. Betancourt as well as the son and daughter they feel that she has gotten progressively worse since leaving the hospital 2 weeks ago she has been more confused and combative. Dr. Betancourt asked that I get a lactic acid and procalcitonin as well as cultures they were negative I did give her Rocephin 2 g IV to cover the possibility of infection she may need further workup such as an MRI. Family feels she needs to come in the hospital I agree I have consulted Dr. Betancourt and also talk to the resident about the patient as well. She will be admitted/observed. Continuous phototypesetting equipment monitor: Orders placed in EMR for continuous cardiac monitoring: Upon my evaluation patient noted to be normal sinus rhythm with a rate of 90 Impression & Plan Altered mental status, Hearing loss, Headache, Combative behavior, Recent urinary tract infection Discharge Plan Visit Data Chief Complaint: Headache Stated Complaint: HEADACHE, AGITATION ED Provider: Anatoliy Jenkins Discharge Problem: Altered mental status, Hearing loss, Headache, Combative behavior, Recent urinary tract infection Forms Stand Alone Forms: My [facility] Prescriptions Prescriptions: No Action lidocaine 4 % cream 1 applic topical BID PRN (Reason: pain) Qty: 15 11RF Rx Instructions: Apply a small amount in front of and above the ear, and lower voodoo where the main branch of the nerve starts. Keep away from eyes and mouth. (DME) Protein shake See Rx Instructions .Route .MEDSUPPLY Qty: 1 0RF Rx Instructions: daily Juice Plus protein shake mixed with milk. PreserVision AREDS-2 250-90-40-1 mg capsule 1 tab PO BID Qty: 180 3RF famotidine 20 mg tablet 20 mg PO BID Qty: 180 3RF Rx Instructions: TAKE ONE TABLET BY MOUTH TWICE A DAY carvedilol 6.25 mg tablet 6.25 mg PO BID Qty: 180 3RF Rx Instructions: must administer with a meal/food cyclosporine 0.05 % dropperette 1 drp ophthalmic (eye) Q12H Qty: 60 1RF Rx Instructions: Instill one drop into each eye in the morning and before bed 12 hours apart risperidone [Risperdal] 0.5 mg tablet 0.5 mg PO DAILY Qty: 30 2RF Hold Instructions: not using Rx Instructions: in the evening trazodone 50 mg tablet 25 mg PO HS Qty: 30 3RF (DME) Oxygen Home Liters Per Minute See Rx Instructions .Route Qty: 1 0RF Rx Instructions: 2L contunious at night and daytime during activity. (DME) Portable Oxygen Misc See Rx Instructions .Route Qty: 1 0RF Rx Instructions: 2L continuious at night and during daytime with activity ondansetron HCl 4 mg tablet 4 mg PO Q6H PRN (Reason: Nausea And Vomiting) docusate sodium 100 mg capsule 100 mg PO DAILY PRN (Reason: Constipation) fluorometholone 0.1 % drops,suspension 1 drp OPB QID Rx Instructions: 1 drp into the eye(s) One drop each eye QID; melatonin 5 mg capsule 5 mg PO .nightly Qty: 30 3RF Rx Instructions: 1 hr before bed nitrofurantoin monohyd/m-cryst [Macrobid] 100 mg capsule 100 mg PO BID Qty: 14 0RF Rx Instructions: No start/End date on SEP from [facility]. must administer with a meal/food cephalexin 500 mg capsule 500 mg PO BID 5 Days Qty: 10 0RF aspirin 81 mg Tablet,Delayed Release (Dr/Ec) 81 mg PO QAM acetaminophen 500 mg Tablet 1,000 mg PO Q6H MDD 3g/24hr PRN (Reason: Pain) acetaminophen 500 mg Tablet 1,000 mg PO HS MDD 3g/24hr Protein Nutritional Shake Liquid 1 ea PO QAM ikggpgrzepqo-nntyobbf-kystot Tablet 1 tab PO QAM diclofenac sodium 1 % Gel 2 g TOPICAL DAILY PRN (Reason: Right Shoulder Pain) cholecalciferol (vitamin D3) [Vitamin D3] 50 mcg (2,000 unit) Tablet 50 mcg PO QAM omega 4-clw-mmj-fish oil [Fish Oil] 1,200 (144-216) mg Capsule 1 cap PO QAM buspirone 5 mg tablet 10 mg PO TID Rx Instructions: change rx on bottle to read TID thanks amlodipine [Norvasc] 5 mg tablet 5 mg PO BID levothyroxine 125 mcg tablet 125 mcg PO QAM duloxetine 20 mg capsule,delayed release(DR/EC) 20 mg PO QAM sodium chloride 1,000 mg tablet,soluble 1,000 mg PO QAM Systane Complete 0.6 % Drops 1 drp OPB QID mirabegron [Myrbetriq] 25 mg tablet extended release 24 hr 25 mg PO QAM Referrals Referrals: Deepti Francois CRNP [Primary Care Provider] - Discharge Problem: Altered mental status Qualifiers: Altered mental status type: unspecified Qualified Code(s): R41.82 - Altered mental status, unspecified Hearing loss Qualifiers: Hearing loss type: unspecified Laterality: unspecified laterality Qualified Code(s): H91.90 - Unspecified hearing loss, unspecified ear Headache Qualifiers: Headache type: unspecified Headache chronicity pattern: acute headache I ntractability: not intractable Qualified Code(s): R51.9 - Headache, unspecified
[2024-02-02] MEDS: SODIUM CHLORIDE 0.9% 500 ML IV STA (19:43)
[2024-02-02 20:28] LABS: Basophils # (auto) 0.03 K/uL (0.00-0.20); Basophils % (auto) 0.3 %; Eosinophils # (auto) 0.55 K/uL (0.00-0.50); Eosinophils % (auto) 5.6 %; Hematocrit (blood only) 31.5 % (37.0-47.0); Hemoglobin 10.4 g/dl (12.0-16.0); Immature Granulocytes # (auto) 0.12 K/uL (0.01-0.20); Immature Granulocytes % (auto) 1.2 %; Lymphocytes # (auto) 1.73 K/uL (1.20-3.40); Lymphocytes % (auto) 17.6 %; Mean Corpuscular Hemoglobin 30.3 pg (25.0-34.0); Mean Corpuscular Volume 91.8 fL (80.0-100.0); Mean Platelet Volume 9.7 fL (9.4-12.4); Monocytes # (auto) 0.69 K/uL (0.11-0.59); Neutrophils # (auto) 6.71 K/uL (1.40-6.50); Neutrophils % (auto) 68.3 %; Platelet Count 376 K/uL (130-400); RDW Coefficient of Variation 14.4 % (11.5-14.5); RDW Standard Deviation 47.3 fL (36.4-46.3); Red Blood Count 3.43 M/uL (4.20-5.40); White Blood Count 9.83 K/ul (4.8-10.8)
[2024-02-02 20:47] LABS: Albumin Globulin Ratio 0.8 (0.9-2); Albumin Level 3.6 gm/dl (3.4-5.0); Bilirubin,Total 0.2 mg/dl (0.2-1.0); Calcium 9.6 mg/dl (8.6-10.3); Est GFR (African American) 32.3 ml/min; Est GFR (Non-African American) 27.9 ml/min; Globulin 4.4 gm/dl (2.5-4.0); Potassium 4.4 mmol/L (3.5-5.1)
[2024-02-02 20:57] LABS: Appearance Urine Clear (Clear); Bacteria Urine Automated None Seen (None Seen); Bilirubin Urine Negative (Negative); Blood Urine Negative (Negative); Color Urine Yellow; Epithelial Cell Urine Auto 0-2 /hpf (0-2); Glucose Urine UA Negative (Negative); Hyaline Casts Urine Present /lpf (None Presnt); Ketones Urine Negative (Negative); Leukocyte Esterase Urine Negative (Negative); Nitrite Urine Negative (Negative); Protein Urine 2+ (Negative); RBC Urine Automated 0-2 /hpf (0-2); Specific Gravity Urine 1.008 (1.000-1.030); Urobilinogen Urine Negative (Negative); WBC Urine Automated 0-5 /hpf (0-5)
[2024-02-02 21:33] LABS: Adenovirus PCR Not Detected (NotDetected); Bordetella parapertussis PCR Not Detected (NotDetected); Bordetella pertussis PCR Not Detected (NotDetected); Chlamydia pneumoniae PCR Not Detected (NotDetected); Coronavirus 229E PCR Not Detected (NotDetected); Coronavirus CoV-2 (COVID19)PCR Not Detected (NotDetected); Coronavirus HKU1 PCR Not Detected (NotDetected); Coronavirus NL63 PCR Not Detected (NotDetected); Coronavirus OC43PCR Not Detected (NotDetected); Human Metapneumovirus PCR Not Detected (NotDetected); Influenza A PCR Not Detected (NotDetected); Influenza B PCR Not Detected (NotDetected); Mycoplasma pneumoniae PCR Not Detected (NotDetected); Parainfluenza Virus 1 PCR Not Detected (NotDetected); Parainfluenza Virus 2 PCR Not Detected (NotDetected); Parainfluenza Virus 3 PCR Not Detected (NotDetected); Parainfluenza Virus 4 PCR Not Detected (NotDetected); Respiratory Syncytial VirusPCR Not Detected (NotDetected); Rhinovirus/Enterovirus PCR Not Detected (NotDetected)
--- NOTE | 2024-02-02 22:07 | CT Scan Report ---
Exam(s): CT HEAD Without Contrast EXAM: CT Head Without Intravenous Contrast CLINICAL HISTORY: Reason for exam: headache. TECHNIQUE: Axial computed tomography images of the head/brain without intravenous contrast. CTDI is 39.02 mGy and DLP is 546.36 mGy-cm. Automated exposure control was utilized for the study. A dose lowering technique was utilized adhering to the principles of ALARA. COMPARISON: 01/18/2024 FINDINGS: Brain: Unremarkable. No hemorrhage. No significant white matter disease. No edema. Ventricles: Unremarkable. No ventriculomegaly. Bones/joints: Unremarkable. No acute fracture. Soft tissues: Unremarkable. Sinuses: Unremarkable as visualized. No acute sinusitis. Mastoid air cells: Unremarkable as visualized. No mastoid effusion. IMPRESSION: Normal head/brain CT. Electronically signed by: Duarte Hilliard MD 02/02/24 22:06 PM
[2024-02-02] MEDS: cefTRIAXone SODIUM 2,000 MG/50 ML BAG IV STA (22:51)
--- NOTE | 2024-02-02 23:17 | History & Physical Report ---
Date of Service February 02, 2024 Assessment & Plan (1) Recent urinary tract infection: (2) Combative behavior: (3) Altered mental status: (4) Headache: (5) Dementia: (6) PATRICIA (acute kidney injury): (7) Sjogren's syndrome: (8) Hypothyroidism: (9) Hypertension: Admission and Anticipated Discharge Date Admission Date: Altered mental status/combative behavior/dementia -Sent to the ED for agitation, confusion, and combative to staff. -CBC benign, lactate negative, Pro-Jose Roberto negative, CMP benign besides a creatinine of 1.62. UA with 2+ protein and hyaline casts. -Had previous UTI and started on Macrobid on 01/16/2024. Was admitted to the hospital and given IV Rocephin. -Head CT negative. Blood cultures collected. -Started on LR at 125, will stop after 1 bag. -Started on ceftriaxone in the ED, will continue at this time. MRSA swab ordered. -Patient was recently prescribed risperidone for owning. Restarted in the ED. -Order CBC, CMP, mag, TSH, VBG, vitamin B12 in the a.m. -Patient was still getting agitated in the ED, spot dose of Haldol given. -Will keep n.p.o. at this time and reevaluate in the morning. -PT OT ordered. -She will reevaluate in the morning mental status as this may be owning. Headache -Patient does complain of a headache, did have a fall recently and hit her head. -CT scan of the head negative. -May consider MRI, family does request to have a MRI done. -To reevaluate in the morning and after getting fluids. PATRICIA/urinary retention -Patient with a creatinine of 1.62. -Patient with established urinary retention, Gutierrez in place. Follows with urology. -Will start on LR at 125, recheck creatinine in the a.m. Hypertension -Holding home meds due to n.p.o. status. Sjogren's syndrome Patient is dehydrated at the time of admission likely combination of poor oral intake and known Sjogren's syndrome Will give 1 bag of LR at 125. Consider continuing IV fluids if patient responds positively. Continue cyclosporine eyedrops Hypothyroidism Continue levothyroxine - TSH in the AM History of Present Illness Chief Complaint: Altered mental status, agitation Primary Care Provider: GAYLA Cesar This patient 89-year-old female who was sent in by ambulance after apparently being more agitated than normal and having a headache. She does have dementia according to the chart. Family bedside states that she has not been diagnosed with dementia. She was seen here about 10 days ago for UTI and started on treatment. Family bedside supplied majority of history. States that she has been getting combative, confused at the [facility] and trying to hit staff. States that she has been " out of control" and aggressive and hitting staff. She does have a Gutierrez in place for urinary retention. Family states that the majority of this altered mental status has been over the last 2 weeks since her UTI started. States that she was normally conversational and was able to have a normal conversation. Patient is currently alert and oriented x 1. Very agitated trying to get out of bed. He also states that she fell within the last month and hit her head. Patient is able to state that she does have a headache. She has been having a headache for some time. Allergies Allergy/AdvReac Type Severity Reaction Status Date / Time Sulfa (Sulfonamide Allergy Intermediate Rash Verified 02/03/24 00:45 Antibiotics) adhesive Allergy Mild rash Verified 02/03/24 00:45 enalaprilat [From Vasotec] Allergy Unknown Unknown Verified 02/03/24 00:45 atorvastatin AdvReac Severe Unconscious Verified 02/03/24 00:45 Home Medications Medication Instructions Recorded Confirmed Type Fish Oil Softgel 1,200 mg PO DAILY 02/03/24 02/03/24 History acetaminophen 500 mg tablet 1,000 mg PO HS 02/03/24 02/03/24 History (Tylenol Extra Strength) acetaminophen 500 mg tablet 1,000 mg PO Q6H PRN Pain 02/03/24 02/03/24 History (Tylenol Extra Strength) amlodipine 5 mg tablet 5 mg PO BID 02/03/24 02/03/24 History aspirin 81 mg tablet,delayed 81 mg PO DAILY 02/03/24 02/03/24 History release buspirone 5 mg tablet 10 mg PO TID 02/03/24 02/03/24 History carvedilol 6.25 mg tablet 6.25 mg PO BID 02/03/24 02/03/24 History cephalexin 500 mg capsule 500 mg PO .BID FOR 5 DAYS 02/03/24 02/03/24 History cholecalciferol (vitamin D3) 50 50 mcg PO DAILY 02/03/24 02/03/24 History mcg (2,000 unit) capsule (Vitamin D3) cyclosporine 0.05 % eye drops in a 1 drp OPB AMHS 02/03/24 02/03/24 History dropperette diclofenac sodium 1 % topical gel 0 g topical DAILY PRN Pain 02/03/24 02/03/24 History docusate sodium 100 mg tablet 100 mg PO DAILY PRN Constipation 02/03/24 02/03/24 History duloxetine 20 mg capsule,delayed 20 mg PO DAILY 02/03/24 02/03/24 History release eyelid cleanser combination 5 1 pad topical DAILY PRN .eyelid 02/03/24 02/03/24 History (OcuSoft Lid Scrub topical pads) hygeine famotidine 20 mg tablet 20 mg PO BID 02/03/24 02/03/24 History fluorometholone 0.1 % eye 1 drp OPB QID 02/03/24 02/03/24 History drops,suspension furosemide 20 mg tablet 20 mg PO DAILY 02/03/24 02/03/24 History levothyroxine 125 mcg tablet 125 mcg PO QAM 02/03/24 02/03/24 History lidocaine 4 % topical cream 1 applic topical DIRECTED PRN 02/03/24 02/03/24 History Pain melatonin 5 mg tablet 5 mg PO HS 02/03/24 02/03/24 History mirabegron 25 mg tablet,extended 25 mg PO DAILY 02/03/24 02/03/24 History release 24 hr (Myrbetriq) bxesdyik-cvxa-ohjn 8 mg-folic 400 1 tab PO DAILY 02/03/24 02/03/24 History mcg-K 50 mcg-lutein 300 mcg tablet (Centrum Silver Women) ondansetron 4 mg disintegrating 4 mg translingual Q6 PRN 02/03/24 02/03/24 History tablet .nausea/vomiting propylene glycol (PF) 0.6 % eye 1 drp ophthalmic (eye) QID 02/03/24 02/03/24 History drops (Systane Complete PF) protein 1 ea PO DAILY 02/03/24 02/03/24 History risperidone 0.5 mg tablet 0.5 mg PO QPM 02/03/24 02/03/24 History sodium chloride 1 gram tablet 1,000 mg PO DAILY 02/03/24 02/03/24 History vit C 250 mg-vit E 90 mg-zinc 40 1 tab PO BID 02/03/24 02/03/24 History mg-copper 1 [id number] capsule (PreserVision AREDS-2) Past Med/Surg History Problem List (Updated 02/02/24 @ 23:55 by Anatoliy Jenkins MD) Recent urinary tract infection (Acute) Combative behavior (Acute) Altered mental status (Acute) Headache (Acute) Sundowning Dementia Acute urinary retention (Acute) Leukocytosis (Acute) Abdominal pain (Acute) Acute respiratory failure with hypoxia Aspiration into airway Elevated lactic acid level (Acute) Acute UTI (Acute) PATRICIA (acute kidney injury) (Acute) Anemia (Acute) Acute confusion (Acute) Sepsis UTI (urinary tract infection), uncomplicated Anxiety Forgetfulness Confusion Orthostatic hypotension dysautonomic syndrome Recurrent falls Diarrhea Hyponatremia (Acute) Anemia Situational anxiety Sjogren's syndrome (Acute) Urinary incontinence Ambulatory dysfunction Hearing loss (Acute) General weakness Weight loss Poor balance Poor eyesight Right shoulder pain Tinea corporis GERD (gastroesophageal reflux disease) Monoclonal gammopathy of undetermined significance (Chronic) Pulmonary nodule (Chronic) Hypothyroidism (Chronic) Hypertension (Chronic) Cystocele Insomnia Rectocele Peripheral edema Dysphagia Pessary maintenance Medical History Sprain of left ankle Sprain of left foot Hypertensive urgency Constipation Fall Hypomagnesemia Right elbow pain Dermatitis Neuropathy Left hand pain Cervical muscle strain Peripheral edema Trigeminal neuralgia Insomnia Sensorineural hearing loss (SNHL) of both ears Memory changes Increased urinary frequency Aortic valve sclerosis Arteriosclerosis of carotid artery Benign neoplasm of colon Cervical lymphadenopathy Chronic hoarseness Mixed hyperlipidemia Osteoporosis Rotator cuff tear, left Unsteady gait Vocal cord paralysis Trigeminal neuralgia RIGHT Spinal stenosis Osteoarthritis IBS (irritable bowel syndrome) GERD (gastroesophageal reflux disease) Macular degeneration Claustrophobia Cardiac murmur Hyperlipidemia HX OF Surgical History History of lumpectomy History of hysterectomy History of bladder surgery BLADDER TACK History of total abdominal hysterectomy and bilateral salpingo-oophorectomy History of colonoscopy History of throat surgery THURNWALDT CYST BENIGN History of tooth extraction History of tonsillectomy History of adenoidectomy Family History Son Family history of diabetes mellitus Father Cancer Sister Cancer Breast cancer Heart disease H/O heart artery stent Mother Myocardial infarction Grandmother AAA (abdominal aortic aneurysm) Myocardial infarction Denies family history of Ovarian cancer Prostate cancer Colorectal cancer Social History Smoking Status: Never smoker Second Hand Exposure: No; Do You Dip or Chew Tobacco: No; Tobacco Cessation Education Requested by Patient: No Hx Alcohol Use: No Hx Substance Use: No Preferred Language: Turkish Communication Ability: Effective Communication Ability Comment: hard of hearing Visual Impairment: Limited Hearing Ability: Use of Hearing Aid 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 Required: No Beliefs That Will Affect Care: None marital status: / Current Living Situation: Residential Current Living Situation Comment: [facility] [employer] current occupational status: retired How many Children do You have: 3 Feels Safe at Home: Yes Safety Concerns: Feels Safe At This Time Childhood Exposure to Second-Hand Smoke: No Diet: Soft caffeine: Yes during the past year weight has: remained stable Dental Care, Regularly: No Physical Activity Frequency: Does not Exercise Seatbelt Use: always Sunscreen Use: Yes Assistive Devices: Denture - Upper, Hearing Aid - Left and Walker Assistive Devices Comment: Bottom dentures believed to be at home, she did not come to the ED w/ them. Review of Systems Review of Systems: Unobtainable due to cognitive status Physical Exam Physical Exam: Constitutional: Frail-appearing, agitated, hard of hearing HEENT: NCAT, no conjunctival injection CV: regular rhythm, no murmur appreciated, extremities well-perfused, no LE edema Resp: CTABL, no wheezes/rales/rhonchi appreciated, no increased work of emiliana thing GI: soft, nondistended, nontender, BS normoactive MSK: no gross deformities appreciated Skin: warm, dry, no rash appreciated Neuro: Alert and oriented x 1 Results & Data Results & Data Vital Signs (Past 12 Hours) Vital Signs Temp Pulse Pulse Resp BP BP Pulse Ox 02/02/24 21:41 88 16 141/91 H 100 02/02/24 20:55 88 16 153/59 H 97 02/02/24 20:24 84 16 168/70 H 97 02/02/24 19:47 82 16 98 02/02/24 19:44 82 02/02/24 19:35 37.1 C 16 176/73 H 97 02/02/24 19:25 37.1 C 84 16 176/73 H 97 O2 Del Method 02/02/24 21:41 Room Air 02/02/24 20:55 Room Air 02/02/24 20:24 Room Air 02/02/24 19:47 Room Air 02/02/24 19:44 02/02/24 19:35 Room Air 02/02/24 19:25 Room Air Supervising Physician Co-Signing Physician Notes Attending addendum: I have physically seen this patient, have supervised the medical residents activities, and agree with the H&P unless as otherwise noted. Assessment and Plan: Confusion/combative behavior/dementia- Appears to have acute kidney injury superimposed on CKD plus dehydration BioFire negative Chest x-ray with chronic interstitial lung disease CTA head negative Status post normal saline 500 mill bolus from the ED Recurrent urinary tract infection- Most recent admission from 01/17-01/22/2024 for urinary tract infection, having been on Macrobid on 01/15, then changed to ceftriaxone for 4 days Follow urine culture and sensitivity Follow blood culture and sensitivity Urine cultures during that admission were negative Did have E. coli UTI on 02/26/2022 resistant to ampicillin and Unasyn Empiric ceftriaxone Headache- History of recent fall and possibility of hitting her head CT scan of the head was negative. No focal deficits or persistent neurologic sy mptoms MRI in a.m. if symptoms are persistent after IV fluids and antibiotics Acute kidney injury superimposed on CKD- Creatinine 1.62, with base 1.3 to Gutierrez catheter in place Status post 500 cc normal saline bolus from the ED Placed on LR at 125 MLS per hour x 1 L Recheck laboratories in a.m Hypertension- BP relatively low at this point for her Hold and hypertensives while n.p.o. Start IV medications as needed if blood pressure would increase overnight Remaining orders and notations as noted (3) Altered mental status Altered mental status type: unspecified Qualified Code(s): R41.82 - Altered mental status, unspecified (4) Headache Headache chronicity pattern: acute headache Headache type: unspecified Int ractability: not intractable Qualified Code(s): R51.9 - Headache, unspecified (7) Sjogren's syndrome Sjogren organ or system involvement: unspecified organ involvement Qualified Code(s): M35.00 - Sjogren syndrome, unspecified (8) Hypothyroidism Hypothyroidism type: unspecified Qualified Code(s): E03.9 - Hypothyroidism, unspecified (9) Hypertension Hypertension type: essential hypertension Qualified Code(s): I10 - Essential (primary) hypertension
[2024-02-03] MEDS: risperiDONE 0.25 MG TAB PO STA (00:07)
[2024-02-03] MEDS: HALOPERIDOL LACTATE 5 MG/ML 1 ML VIAL IV STA ×2 (01:16→05:41)
[2024-02-03] MEDS ORDERED: [UNRECOGNIZED DRUG - OTHER] TOP PRN (03:19)
[2024-02-03] MEDS ORDERED: EYELID CLEANSER COMBINATION TOP PRN (03:19)
[2024-02-03] MEDS: LACTATED RINGER'S 1,000 ML IV STA (06:02)
[2024-02-03 06:29] LABS: Base Excess VBG 2.8 mEq/L; HCO3 VBG 26 mmol/L; PCO2 VBG 35 mmHg (38-50); PO2 VBG 56 mmHg; pH VBG 7.48 (7.36-7.41)
[2024-02-03 06:34] LABS: Hematocrit (blood only) 28.2 % (37.0-47.0); Hemoglobin 9.5 g/dl (12.0-16.0); Mean Corpuscular Hemoglobin 30.5 pg (25.0-34.0); Mean Corpuscular Hgb Conc 33.7 g/dL (32.0-36.0); Mean Corpuscular Volume 90.7 fL (80.0-100.0); Mean Platelet Volume 9.5 fL (9.4-12.4); Platelet Count 345 K/uL (130-400); RDW Coefficient of Variation 14.3 % (11.5-14.5); RDW Standard Deviation 46.8 fL (36.4-46.3); Red Blood Count 3.11 M/uL (4.20-5.40); White Blood Count 11.69 K/ul (4.8-10.8)
[2024-02-03 06:53] LABS: Albumin Globulin Ratio 0.8 (0.9-2); Albumin Level 3.2 gm/dl (3.4-5.0); BUN Creatinine Ratio 14.9 (10-20); Bilirubin,Total 0.3 mg/dl (0.2-1.0); Calcium 8.9 mg/dl (8.6-10.3); Creatinine Clr Calc Pharmacy 20.4 ml/min; Est GFR (African American) 40.6 ml/min; Globulin 3.8 gm/dl (2.5-4.0); Magnesium 1.7 mg/dl (1.7-2.4); Potassium 3.8 mmol/L (3.5-5.1)
[2024-02-03] MEDS: HALOPERIDOL LACTATE 5 MG/ML 1 ML VIAL ONE (06:54)
[2024-02-03 07:08] LABS: Thyroid Stimulating Hormone 7.656 uIu/ml (0.300-4.500)
--- NOTE | 2024-02-03 07:16 | Hospitalist Progress Note ---
Date of Service February 03, 2024 Assessment & Plan (1) Recent urinary tract infection: (2) Combative behavior: (3) Altered mental status: (4) Headache: (5) Dementia: (6) PATRICIA (acute kidney injury): (7) Sjogren's syndrome: (8) Hypothyroidism: (9) Hypertension: Plan 1. Altered mental status -Sent to the ED for agitation, confusion, and combative to staff altered from baseline dementia at [facility]. -Had previous UTI and started on Macrobid on 01/16/2024. Was admitted to the hospital and given IV Rocephin. - UA was negaitve for UTI - Head CT negative. - Blood cultures collected. Awaiting results -Ceftriaxone started in the ED. MRSA swab ordered. -Patient was recently prescribed risperidone for . Restarted in the ED. -B12 was high at 1088 -Pt continues NPO. -PT OT ordered. 2. Headache -Patient does complain of a headache, did have a fall recently and hit her head. -CT scan of the head negative. -May consider MRI, family does request to have a MRI done. -To reevaluate in the morning and after getting fluids. 3. PATRICIA/urinary retention -Patient's creatinine at presentation was 1.62, currently 1.34 . -Patient with established urinary retention, Gutierrez in place. Follows with urology. - Restarted LR 125mls/hr due to full admission . 4. Hypertension -Holding home meds due to n.p.o. status. 5. Sjogren's syndrome Restarted LR 125mls/hr due to full hospital admission and remains npo. Continue cyclosporine eyedrops - Continue systane eye drop - Continue flourometholone eye drop 6. Hypothyroidism Continue levothyroxine - TSH is 7.656 Admission and Anticipated Discharge Date Admission Date: February 02, 2024 Supervising Physician Co-Signing Physician Notes Attending Physician Supervision Note: I independently interviewed and examined the patient and verified the carranza history and physical, reviewed labs and image studies and agree with findings and care plan noted above. Combative behavior at home after recent hospital stay - Underlying dementia. No acute pathology noted in work up so far. Urine cx pending -Since discharge on 01/21 - has been started on risperidone by pcp for agitation. continue -continue rocephine until urine cx resulted. Subjective Pt is an 89 yo female with PMedHx of dementia, Sjogren's syndrome, recent UTI, who presented to ED with altered mental status and combative behavior with staff. Pt was given Haldol x 2 and respiradol x 1. She was also started on ceftriaxone. Pt was sleeping most of the day and unable to assess level of agitation and cognition. Pt was more alert and awake in late afternoon, but becoming agitated, pulling at her lines and trying to get out of bed. Patient family is requesting an MRI. Physical Exam Physical Exam: Constitutional: Frail-appearing, lethargic and sleeping through exam, hard of hearing HEENT: NCAT, no conjunctival injection CV: regular rhythm, no murmur appreciated, extremities well-perfused, no LE edema Resp: CTABL, no wheezes/rales/rhonchi appreciated, no increased work of breathing GI: soft, nondistended, nontender, BS normoactive MSK: no gross deformities appreciated Skin: warm, dry, no rash appreciated Neuro: Alert and oriented x 1 Results & Data Results & Data Vital Signs (Past 12 Hours) Vital Signs Temp Pulse Pulse Resp BP BP Pulse Ox 02/03/24 05:20 92 H 16 118/77 96 02/03/24 04:37 76 16 146/84 H 97 02/03/24 03:29 80 16 137/72 97 02/03/24 01:06 76 16 146/84 H 97 02/02/24 23:45 104 H 02/02/24 23:20 98 H 16 96 02/02/24 21:41 88 16 141/91 H 100 02/02/24 20:55 88 16 153/59 H 97 02/02/24 20:24 84 16 168/70 H 97 02/02/24 19:47 82 16 98 02/02/24 19:44 82 02/02/24 19:35 37.1 C 16 176/73 H 97 02/02/24 19:25 37.1 C 84 16 176/73 H 97 O2 Del Method 02/03/24 05:20 Room Air 02/03/24 04:37 Room Air 02/03/24 03:29 Room Air 02/03/24 01:06 Room Air 02/02/24 23:45 02/02/24 23:20 Room Air 07/26/24 21:41 Room Air 02/02/24 20:55 Room Air 02/02/24 20:24 Room Air 02/02/24 19:47 Room Air 02/02/24 19:44 02/02/24 19:35 Room Air 02/02/24 19:25 Room Air Laboratory Results 02/03/24 02/03/24 02/02/24 Range/Units 06:13 06:05 22:38 WBC 11.69 H (4.8-10.8) K/ul RBC 3.11 L (4.20-5.40) M/uL Hgb 9.5 L (12.0-16.0) g/dl Hct 28.2 L (37.0-47.0) % MCV 90.7 (80.0-100.0) fL MCH 30.5 (25.0-34.0) pg MCHC 33.7 (32.0-36.0) g/dL RDW Std Deviation 46.8 H (36.4-46.3) fL RDW Coeff of Neto 14.3 (11.5-14.5) % Plt Count 345 (130-400) K/uL MPV 9.5 (9.4-12.4) fL Immature Gran % (Auto) % Neut % (Auto) % Lymph % (Auto) % [place] % (Auto) % Eos % (Auto) % Baso % (Auto) % Neut # (Auto) (1.40-6.50) K/uL Lymph # (Auto) (1.20-3.40) K/uL [place] # (Auto) (0.11-0.59) K/uL Eos # (Auto) (0.00-0.50) K/uL Baso # (Auto) (0.00-0.20) K/uL Immature Gran # (Auto) (0.01-0.20) K/uL ESR (0-30) mm/hr VBG pH 7.48 H (7.36-7.41) VBG pCO2 35 L (38-50) mmHg VBG pO2 56 mmHg VBG HCO3 26 mmol/L VBG O2 Saturation 93.0 % VBG Base Excess 2.8 mEq/L Sodium 134 L (136-145) mmol/L Potassium 3.8 (3.5-5.1) mmol/L Chloride 101 (98-107) mmol/L Carbon Dioxide 26 (21-32) mmol/L Anion Gap 7 (3-11) BUN 20 (6-23) mg/dl Creatinine 1.34 H (0.6-1.2) mg/dl Est Cr Clr Drug Dosing 20.4 ml/min Est GFR ( Amer) 40.6 ml/min Est GFR (Non-Af Amer) 35.0 ml/min BUN/Creatinine Ratio 14.9 (10-20) Glucose 126 H (70-99(Fasting)) mg/dl Lactate 0.6 (0.4-2.0) mmol/L Calcium 8.9 (8.6-10.3) mg/dl Magnesium 1.7 (1.7-2.4) mg/dl Total Bilirubin 0.3 (0.2-1.0) mg/dl AST 15 (13-39) U/L ALT 13 (7-52) U/L Alkaline Phosphatase 66 (34-104) U/L Total Protein 7.0 (6.0-8.3) gm/dl Albumin 3.2 L (3.4-5.0) gm/dl Globulin 3.8 (2.5-4.0) gm/dl Albumin/Globulin Ratio 0.8 L (0.9-2) Lipase (11-82) U/L Vitamin B12 Pending Procalcitonin (0-0.5) ng/ml TSH 7.656 H (0.300-4.500) uIu/ml Urine Color Urine Appearance (Clear) Urine pH (4.5-7.5) Ur Specific [employer] [place] (1.000-1.030) Urine Protein (Negative) Urine Glucose (UA) (Negative) Urine Ketones (Negative) Urine Blood (Negative) Urine Nitrite (Negative) Urine Bilirubin (Negative) Urine Urobilinogen (Negative) Ur Leukocyte Esterase (Negative) Urine WBC (Auto) (0-5) /hpf Urine RBC (Auto) (0-2) /hpf U Hyaline Cast (Auto) (0-2) /lpf U Epithel Cells (Auto) (0-2) /hpf Urine Bacteria (Auto) (None Seen) Hyaline Casts (None Presnt) /lpf Adenovirus (PCR) (NotDetected) B. pertussis DNA (PCR) (NotDetected) B.parapertussis DNA PCR (NotDetected) C. pneumoniae DNA (PCR) (NotDetected) Coronavirus OC43 (PCR) (NotDetected) Coronavirus HKU1 (PCR) (NotDetected) Coronavirus 229E (PCR) (NotDetected) SARS-CoV-2 (PCR) (NotDetected) Coronavirus NL63 (PCR) (NotDetected) Human Metapneumovir PCR (NotDetected) Influenza Type A (PCR) (NotDetected) Influenza Type B (PCR) (NotDetected) M. pneumoniae (PCR) (NotDetected) Parainfluenza 1 (PCR) (NotDetected) Parainfluenza 2 (PCR) (NotDetected) Parainfluenza 3 (PCR) (NotDetected) Parainfluenza 4 (PCR) (NotDetected) RSV (PCR) (NotDetected) Entero/Rhino (PCR) (NotDetected) 02/02/24 02/02/24 02/02/24 Range/Units 20:28 20:16 19:40 WBC 9.83 (4.8-10.8) K/ul RBC 3.43 L (4.20-5.40) M/uL Hgb 10.4 L (12.0-16.0) g/dl Hct 31.5 L (37.0-47.0) % MCV 91.8 (80.0-100.0) fL MCH 30.3 (25.0-34.0) pg MCHC 33.0 (32.0-36.0) g/dL RDW Std Deviation 47.3 H (36.4-46.3) fL RDW Coeff of Neto 14.4 (11.5-14.5) % Plt Count 376 (130-400) K/uL MPV 9.7 (9.4-12.4) fL Immature Gran % (Auto) 1.2 % Neut % (Auto) 68.3 % Lymph % (Auto) 17.6 % [place] % (Auto) 7.0 % Eos % (Auto) 5.6 % Baso % (Auto) 0.3 % Neut # (Auto) 6.71 H (1.40-6.50) K/uL Lymph # (Auto) 1.73 (1.20-3.40) K/uL [place] # (Auto) 0.69 H (0.11-0.59) K/uL Eos # (Auto) 0.55 H (0.00-0.50) K/uL Baso # (Auto) 0.03 (0.00-0.20) K/uL Immature Gran # (Auto) 0.12 (0.01-0.20) K/uL ESR 98 H (0-30) mm/hr VBG pH (7.36-7.41) VBG pCO2 (38-50) mmHg VBG pO2 mmHg VBG HCO3 mmol/L VBG O2 Saturation % VBG Base Excess mEq/L Sodium 134 L (136-145) mmol/L Potassium 4.4 (3.5-5.1) mmol/L Chloride 98 (98-107) mmol/L Carbon Dioxide 27 (21-32) mmol/L Anion Gap 9 (3-11) BUN 26 H (6-23) mg/dl Creatinine 1.62 H (0.6-1.2) mg/dl Est Cr Clr Drug Dosing 19.0 ml/min Est GFR ( Amer) 32.3 ml/min Est GFR (Non-Af Amer) 27.9 ml/min BUN/Creatinine Ratio 16.0 (10-20) Glucose 127 H (70-99(Fasting)) mg/dl Lactate (0.4-2.0) mmol/L Calcium 9.6 (8.6-10.3) mg/dl Magnesium (1.7-2.4) mg/dl Total Bilirubin 0.2 (0.2-1.0) mg/dl AST 15 (13-39) U/L ALT 16 (7-52) U/L Alkaline Phosphatase 72 (34-104) U/L Total Protein 8.0 (6.0-8.3) gm/dl Albumin 3.6 (3.4-5.0) gm/dl Globulin 4.4 H (2.5-4.0) gm/dl Albumin/Globulin Ratio 0.8 L (0.9-2) Lipase 38 (11-82) U/L Vitamin B12 Procalcitonin 0.05 (0-0.5) ng/ml TSH (0.300-4.500) uIu/ml Urine Color Yellow Urine Appearance Clear (Clear) Urine pH 8.0 H (4.5-7.5) Ur Specific [employer] [place] 1.008 (1.000-1.030) Urine Protein 2+ H (Negative) Urine Glucose (UA) Negative (Negative) Urine Ketones Negative (Negative) Urine Blood Negative (Negative) Urine Nitrite Negative (Negative) Urine Bilirubin Negative (Negative) Urine Urobilinogen Negative (Negative) Ur Leukocyte Esterase Negative (Negative) Urine WBC (Auto) 0-5 (0-5) /hpf Urine RBC (Auto) 0-2 (0-2) /hpf U Hyaline Cast (Auto) 6-10 H (0-2) /lpf U Epithel Cells (Auto) 0-2 (0-2) /hpf Urine Bacteria (Auto) None Seen (None Seen) Hyaline Casts Present A (None Presnt) /lpf Adenovirus (PCR) Not Detected (NotDetected) B. pertussis DNA (PCR) Not Detected (NotDetected) B.parapertussis DNA PCR Not Detected (NotDetected) C. pneumoniae DNA (PCR) Not Detected (NotDetected) Coronavirus OC43 (PCR) Not Detected (NotDetected) Coronavirus HKU1 (PCR) Not Detected (NotDetected) Coronavirus 229E (PCR) Not Detected (NotDetected) SARS-CoV-2 (PCR) Not Detected (NotDetected) Coronavirus NL63 (PCR) Not Detected (NotDetected) Human Metapneumovir PCR Not Detected (NotDetected) Influenza Type A (PCR) Not Detected (NotDetected) Influenza Type B (PCR) Not Detected (NotDetected) M. pneumoniae (PCR) Not Detected (NotDetected) Parainfluenza 1 (PCR) Not Detected (NotDetected) Parainfluenza 2 (PCR) Not Detected (NotDetected) Parainfluenza 3 (PCR) Not Detected (NotDetected) Parainfluenza 4 (PCR) Not Detected (NotDetected) RSV (PCR) Not Detected (NotDetected) Entero/Rhino (PCR) Not Detected (NotDetected) Diagnostic Findings Head CT 02/02/24 19:22 Exam(s): CT HEAD Without Contrast EXAM: CT Head Without Intravenous Contrast CLINICAL HISTORY: Reason for exam: headache. TECHNIQUE: Axial computed tomography images of the head/brain without intravenous contrast. CTDI is 39.02 mGy and DLP is 546.36 mGy-cm. Automated exposure control was utilized for the study. A dose lowering technique was utilized adhering to the principles of ALARA. COMPARISON: 01/18/2024 FINDINGS: Brain: Unremarkable. No hemorrhage. No significant white matter disease. No edema. Ventricles: Unremarkable. No ventriculomegaly. Bones/joints: Unremarkable. No acute fracture. Soft tissues: Unremarkable. Sinuses: Unremarkable as visualized. No acute sinusitis. Mastoid air cells: Unremarkable as visualized. No mastoid effusion. IMPRESSION: Normal head/brain CT. Electronically signed by: Duarte Hilliard MD 02/02/24 22:06 PM (3) Altered mental status Altered mental status type: unspecified Qualified Code(s): R41.82 - Altered mental status, unspecified (4) Headache Headache chronicity pattern: acute headache Headache type: unspecified Intractability: not intractable Qualified Code(s): R51.9 - Headache, unspecified (7) Sjogren's syndrome Sjogren organ or system involvement: unspecified organ involvement Qualified Code(s): M35.00 - Sjogren syndrome, unspecified (8) Hypothyroidism Hypothyroidism type: unspecified Qualified Code(s): E03.9 - Hypothyroidism, unspecified (9) Hypertension Hypertension type: essential hypertension Qualified Code(s): I10 - Essential (primary) hypertension
[2024-02-03] MEDS: LEVOTHYROXINE SODIUM 125 MCG TABLET PO SCH (08:16)
--- NOTE | 2024-02-03 08:51 | XRay Report ---
XR chest 1V portable HISTORY: 89 years-old Female cough acute cough COMPARISON: 01/23/2024 TECHNIQUE: AP view of the chest FINDINGS: Cardiac silhouette is enlarged with pulmonary vascular congestion. Small left pleural effusion with m ild left basilar densities. Trace right pleural effusion. Bones appear grossly intact. Chronic inters titial coarsening. No pneumothorax. IMPRESSION: 1. Unchanged trace right and small left pleural effusion with left basilar densities. 2. Cardiomegaly with pulmonary vascular congestion. ACT 112: Negative or not required by law. The above report was generated using voice recognition software. It may contain grammatical, syntax o r spelling errors. Electronically signed by: Chuy Albright M.D. 02/03/2024 8:49 AM
[2024-02-03] MEDS: LACTATED RINGER'S 1,000 ML IV SCH (18:00)
--- NOTE | 2024-02-03 20:22 | Billing Data ---
Date of Service February 03, 2024 Coding Level of Care Code 13232 INT INP/OBS CARE
[2024-02-03] MEDS: cefTRIAXone SODIUM 2,000 MG/50 ML BAG IV SCH (20:51)
[2024-02-03] MEDS: risperiDONE 0.5 MG TABLET PO SCH (20:51)
[2024-02-04] MEDS: ACETAMINOPHEN 1,000 MG/100 ML VIAL IV STA (01:51)
--- NOTE | 2024-02-04 06:43 | Hospitalist Progress Note ---
Date of Service February 04, 2024 Assessment & Plan (1) Recent urinary tract infection: (2) Combative behavior: (3) Altered mental status: (4) Headache: (5) Dementia: (6) PATRICIA (acute kidney injury): (7) Sjogren's syndrome: (8) Hypothyroidism: (9) Hypertension: Plan 1. Altered mental status Sent to the ED for agitation, confusion, and combative to staff altered from baseline dementia at [facility]. Had previous UTI and started on Macrobid on 01/16/2024. Was admitted to the hospital and given IV Rocephin. - UA was negative for UTI - Head CT negative. - B12 was high at 1088 - Blood cultures collected in ED, no growth after 24 hrs - Stopped IV Ceftriaxone. -Continue risperidone 0.5 mg hs for . -Started on regular soft diet -PT/OT recommend return to [facility] upon DC from hospital when medically stable. 2. Headache -Patient does not report c/o headache today, despite reported recent fall and hitting her head. -CT scan of the head negative. -MRI ordered. 3. PATRICIA/urinary retention -Patient's creatinine is within normal parameters today at 1.20. -Patient with established urinary retention, Gutierrez in place. Follows with urology. - Will continue to monitor with CMP 4. Hypertension -Highest BP has been 165/90 -Will consider restarting home meds in am 5. Sjogren's syndrome LR 125mls/hr, will assess volume in the morning - Added full diet at lunch Continue cyclosporine eyedrops - Continue systane eye drop - Continue flourometholone eye drop 6. Hypothyroidism Continue levothyroxine Admission and Anticipated Discharge Date Admission Date: February 03, 2024 Supervising Physician Co-Signing Physician Notes Attending Physician Supervision Note: I independently interviewed and examined the patient and verified the carranza history and physical, reviewed labs and image studies and agree with findings and care plan noted above. Has been calm since last night. Slept well. Combative behavior at home after recent hospital stay - Underlying dementia. No acute pathology noted in work up so far. -Since discharge on 01/21 - has been started on risperidone by pcp for agitation. continue -urine cx neg - d/c abx -check Brain MRI -IVF while mentation not clear enough to have adequate PO intake. Subjective Pt is an 89 yo female with PMedHx of dementia, Sjogren's syndrome, recent UTI, who presented to ED with altered mental status and combative behavior with staff. Pt was given Haldol x 2 and respiradol x 1. She was also started on ceftriaxone. Pt is awake and alert this morning. She is calm and responding in conversation, cooperative during exam. Physical Exam Physical Exam: Constitutional: Frail-appearing, cooperative for exam, hard of hearing HEENT: NCAT, no conjunctival injection CV: regular rhythm, no murmur appreciated, extremities well-perfused, no LE edema Resp: CTABL, no wheezes/rales/rhonchi appreciated, no increased work of breathing GI: soft, nondistended, nontender, BS normoactive MSK: no gross deformities appreciated Skin: warm, dry, no rash appreciated Neuro: Alert and oriented x 1 Results & Data Results & Data Vital Signs (Past 12 Hours) Vital Signs Temp Pulse Pulse Resp BP Pulse Ox O2 Del Method 02/04/24 02:33 36.8 C 95 H 18 165/90 H 100 Room Air 02/04/24 01:05 02/03/24 22:54 Room Air 02/03/24 22:43 36.7 C 113 H 18 152/73 H 98 Room Air 02/03/24 21:40 118 H 02/03/24 19:56 79 Room Air 02/03/24 18:56 36.7 C 103 H 20 177/81 H 93 Room Air O2 Del Method 02/04/24 02:33 02/04/24 01:05 Room Air 02/03/24 22:54 02/03/24 22:43 02/03/24 21:40 02/03/24 19:56 02/03/24 18:56 (3) Altered mental status Altered mental status type: unspecified Qualified Code(s): R41.82 - Altered mental status, unspecified (4) Headache Headache chronicity pattern: acute headache Headache type: unspecified Intractability: not intractable Qualified Code(s): R51.9 - Headache, unspecified (7) Sjogren's syndrome Sjogren organ or system involvement: unspecified organ involvement Qualified Code(s): M35.00 - Sjogren syndrome, unspecified (8) Hypothyroidism Hypothyroidism type: unspecified Qualified Code(s): E03.9 - Hypothyroidism, unspecified (9) Hypertension Hypertension type: essential hypertension Qualified Code(s): I10 - Essential (primary) hypertension
[2024-02-04 07:41] LABS: Albumin Level 2.8 gm/dl (3.4-5.0); Basophils # (auto) 0.03 K/uL (0.00-0.20); Basophils % (auto) 0.4 %; Bilirubin,Total 0.3 mg/dl (0.2-1.0); Calcium 8.4 mg/dl (8.6-10.3); Eosinophils # (auto) 1.62 K/uL (0.00-0.50); Eosinophils % (auto) 19.3 %; Hematocrit (blood only) 29.5 % (37.0-47.0); Hemoglobin 9.9 g/dl (12.0-16.0); Immature Granulocytes # (auto) 0.05 K/uL (0.01-0.20); Immature Granulocytes % (auto) 0.6 %; Lymphocytes # (auto) 1.63 K/uL (1.20-3.40); Lymphocytes % (auto) 19.4 %; Mean Corpuscular Hemoglobin 30.5 pg (25.0-34.0); Mean Corpuscular Hgb Conc 33.6 g/dL (32.0-36.0); Mean Corpuscular Volume 90.8 fL (80.0-100.0); Mean Platelet Volume 9.5 fL (9.4-12.4); Monocytes # (auto) 0.52 K/uL (0.11-0.59); Monocytes % (auto) 6.2 %; Neutrophils # (auto) 4.56 K/uL (1.40-6.50); Neutrophils % (auto) 54.1 %; Platelet Count 328 K/uL (130-400); Potassium 3.5 mmol/L (3.5-5.1); RDW Coefficient of Variation 14.5 % (11.5-14.5); RDW Standard Deviation 47.3 fL (36.4-46.3); Red Blood Count 3.25 M/uL (4.20-5.40); White Blood Count 8.41 K/ul (4.8-10.8)
[2024-02-04 07:47] LABS: Albumin Globulin Ratio 0.8 (0.9-2); BUN Creatinine Ratio 12.5 (10-20); Creatinine Clr Calc Pharmacy 22.8 ml/min; Est GFR (African American) 46.4 ml/min; Globulin 3.5 gm/dl (2.5-4.0); Total Protein 6.3 gm/dl (6.0-8.3)
[2024-02-04] MEDS: FLUOROMETHOLONE OP SCH (08:19)
[2024-02-04] MEDS: SYSTANE OP SCH (08:20)
[2024-02-04] MEDS: LORazepam 0.25 MG in SYRINGE 0.125 ML IV STA (14:01)
--- NOTE | 2024-02-04 15:30 | Magnetic Resonance Report ---
MR brain wo con HISTORY: 89 years-old Female acute mental decline acutely altered mental status COMPARISON: Head CT of same day TECHNIQUE: Multiplanar multisequence MRI of the brain was obtained without IV contrast. FINDINGS: No reconstructed diffusion. Midline structures appear unremarkable. Study is motion degraded. Degener ative changes of the imaged cervical spine. 4 mm pineal gland cyst. No acute intracranial hemorrhage, midline shift, abnormal extra-axial collection, hydrocephalus or intra-axial mass identified conside ring the motion degradation. Involutional changes with mild T2/FLAIR hyperintense foci throughout the white matter suggestive of chronic microvascular ischemic disease. Cerebral venous sinuses and major arterial flow voids appear. Skull, orbits and soft tissues are unre markable with bilateral lens repair. Trace left mastoid effusion. IMPRESSION: 1. Motion degraded exam. No acute intracranial abnormality identified. 2. Involutional changes with mild chronic microvascular ischemic disease. ACT 112: Negative or not required by law. The above report was generated using voice recognition software. It may contain grammatical, syntax o r spelling errors. Electronically signed by: Chuy Albright M.D. 02/04/2024 3:29 PM
--- NOTE | 2024-02-05 07:31 | Discharge Summary ---
Date of Service February 05, 2024 Admission HPI Per Admitting Provider This patient 89-year-old female who was sent in by ambulance after apparently being more agitated than normal and having a headache. She does have dementia according to the chart. Family bedside states that she has not been diagnosed with dementia. She was seen here about 10 days ago for UTI and started on treatment. Family bedside supplied majority of history. States that she has been getting combative, confused at the [place] and trying to hit staff. States that she has been " out of control" and aggressive and hitting staff. She does have a Gutierrez in place for urinary retention. Family states that the majority of this altered mental status has been over the last 2 weeks since her UTI started. States that she was normally conversational and was able to have a normal conversation. Patient is currently alert and oriented x 1. Very agitated trying to get out of bed. He also states that she fell within the last month and hit her head. Patient is able to state that she does have a headache. She has been having a headache for some time. Discharge Exam Constitutional: Frail-appearing, cooperative for exam, hard of hearing HEENT: NCAT, no conjunctival injection CV: regular rhythm, no murmur appreciated, extremities well-perfused, no LE edema Resp: CTABL, no wheezes/rales/rhonchi appreciated, no increased work of breathing GI: soft, nondistended, nontender, BS normoactive MSK: no gross deformities appreciated Skin: warm, dry, no rash appreciated Neuro: Alert and oriented x 1 Discharge Data Allergies Allergy/AdvReac Type Severity Reaction Status Date / Time Sulfa (Sulfonamide Allergy Intermediate Rash Verified 02/03/24 00:45 Antibiotics) adhesive Allergy Mild rash Verified 02/03/24 00:45 enalaprilat [From Vasotec] Allergy Unknown Unknown Verified 02/03/24 00:45 atorvastatin AdvReac Severe Unconscious Verified 02/03/24 00:45 Consultations 02/02/24 22:15 ED Decision to Admit Stat Ordered Studies 02/02/24 19:22 CT head/brain wo con Stat 02/04/24 10:10 MR brain wo con Routine Hospital Course (1) Recent urinary tract infection: (2) Combative behavior: (3) Altered mental status: (4) Headache: (5) Dementia: (6) PATRICIA (acute kidney injury): (7) Sjogren's syndrome: (8) Hypothyroidism: (9) Hypertension: Plan 1. Altered mental status Sent to the ED for agitation, confusion, and combative to staff altered from baseline dementia at [facility]. Had previous UTI and started on Macrobid on 01/16/2024. Was admitted to the hospital and given IV Rocephin. - UA was negative for UTI - Head CT negative. - B12 was high at 1088 - Blood cultures collected in ED, no growth after 24 hrs - Stopped IV Ceftriaxone. -Continue risperidone 0.5 mg hs for . -Started on regular soft diet -PT/OT recommend return to [facility] upon DC from hospital when medically stable. 2. Headache -Patient does not report c/o headache today, despite reported recent fall and hitting her head. -CT scan of the head negative. -MRI ordered. 3. PATRICIA/urinary retention -Patient's creatinine is within normal parameters today at 1.20. -Patient with established urinary retention, Gutierrez in place. Follows with urology. - Will continue to monitor with CMP 4. Hypertension -Highest BP has been 165/90 -Will consider restarting home meds in am 5. Sjogren's syndrome LR 125mls/hr, will assess volume in the morning - Added full diet at lunch Continue cyclosporine eyedrops - Continue systane eye drop - Continue flourometholone eye drop 6. Hypothyroidism Continue levothyroxine Discharge Plan Discharge Items Patient Disposition: Personal Long-Term Reason For Visit: ALTERED LOC Discharge Diagnosis: Altered mental status Activity: Resume your previous activity Activity Comment: Continue with home health therapy Non-emergency contact: Primary Care Provider Call non-emergency contact if: you have any medication questions and your symptoms worsen Follow-up/Referrals: Deepti Francois CRNP [Primary Care Provider] - Diet: Regular Pending Studies at Discharge: No Stand-Alone Forms: [employer] Smoking Cessation Skilled Items Patient informed of condition?: Yes DNR: No Communicable Disease: No Discharge Prognosis: Stable Lines: None Urinary Catheter: Yes Medications and DC Order Prescriptions: Continued buspirone 5 mg tablet 10 mg PO TID carvedilol 6.25 mg tablet 6.25 mg PO BID sodium chloride 1 gram Tablet 1,000 mg PO DAILY lidocaine 4 % Cream 1 applic TOPICAL DIRECTED PRN (Reason: Pain) amlodipine 5 mg tablet 5 mg PO BID aspirin [Aspir-Low] 81 mg Tablet,Delayed Release (Dr/Ec) 81 mg PO DAILY acetaminophen [Tylenol Extra Strength] 500 mg Tablet 1,000 mg PO HS acetaminophen [Tylenol Extra Strength] 500 mg Tablet 1,000 mg PO Q6H PRN (Reason: Pain) famotidine 20 mg tablet 20 mg PO BID levothyroxine 125 mcg tablet 125 mcg PO QAM fluorometholone 0.1 % drops,suspension 1 drp OPB QID protein Powder 1 ea PO DAILY Rx Instructions: mix with milk furosemide 20 mg tablet 20 mg PO DAILY ondansetron 4 mg tablet,disintegrating 4 mg translingual Q6 PRN (Reason: .nausea/vomiting) docusate sodium 100 mg Tablet 100 mg PO DAILY PRN (Reason: Constipation) risperidone 0.5 mg tablet 0.5 mg PO QPM cyclosporine 0.05 % dropperette 1 drp OPB AMHS duloxetine 20 mg capsule,delayed release(DR/EC) 20 mg PO DAILY diclofenac sodium [Voltaren] 1 % Gel 0 g TOPICAL DAILY PRN (Reason: Pain) Rx Instructions: Right shoulder melatonin 5 mg Tablet 5 mg PO HS cholecalciferol (vitamin D3) [Vitamin D3] 50 mcg (2,000 unit) Capsule 50 mcg PO DAILY Centrum Silver Women 8 mg iron-400 mcg-50 mcg Tablet 1 tab PO DAILY OcuSoft Lid Scrub Pads, Medicated 1 pad TOPICAL DAILY PRN (Reason: .eyelid hygeine) mirabegron [Myrbetriq] 25 mg tablet extended release 24 hr 25 mg PO DAILY PreserVision AREDS-2 250-90-40-1 mg Capsule 1 tab PO BID Systane Complete PF 0.6 % drops 1 drp OPHTHALMIC (EYE) QID Fish Oil Softgel 1,200 mg PO DAILY Discontinued cephalexin 500 mg capsule 500 mg PO .BID FOR 5 DAYS Rx Instructions: STARTED 01/31/2024 @1999 Admission Data Admit Date/Time: 02/03/24 17:54 Attending Provider: Verona Hanks Admit Provider: Dawit Stephens Primary Care Provider: Deepti Francois Other Providers: Christian Alba
[2024-02-05 07:59] LABS: Basophils # (auto) 0.04 K/uL (0.00-0.20); Basophils % (auto) 0.5 %; Eosinophils # (auto) 1.41 K/uL (0.00-0.50); Eosinophils % (auto) 18.9 %; Hematocrit (blood only) 31.6 % (37.0-47.0); Hemoglobin 10.4 g/dl (12.0-16.0); Immature Granulocytes # (auto) 0.04 K/uL (0.01-0.20); Immature Granulocytes % (auto) 0.5 %; Lymphocytes # (auto) 2.27 K/uL (1.20-3.40); Lymphocytes % (auto) 30.3 %; Mean Corpuscular Hemoglobin 30.3 pg (25.0-34.0); Mean Corpuscular Hgb Conc 32.9 g/dL (32.0-36.0); Mean Corpuscular Volume 92.1 fL (80.0-100.0); Mean Platelet Volume 9.3 fL (9.4-12.4); Monocytes # (auto) 0.56 K/uL (0.11-0.59); Monocytes % (auto) 7.5 %; Neutrophils # (auto) 3.16 K/uL (1.40-6.50); Neutrophils % (auto) 42.3 %; Platelet Count 316 K/uL (130-400); RDW Coefficient of Variation 14.1 % (11.5-14.5); RDW Standard Deviation 46.9 fL (36.4-46.3); Red Blood Count 3.43 M/uL (4.20-5.40); White Blood Count 7.48 K/ul (4.8-10.8)
[2024-02-05 08:20] LABS: Albumin Globulin Ratio 0.8 (0.9-2); Albumin Level 2.9 gm/dl (3.4-5.0); BUN Creatinine Ratio 12.4 (10-20); Bilirubin,Total 0.3 mg/dl (0.2-1.0); Calcium 8.5 mg/dl (8.6-10.3); Creatinine Clr Calc Pharmacy 24.2 ml/min; Est GFR (African American) 49.9 ml/min; Est GFR (Non-African American) 43.1 ml/min; Globulin 3.6 gm/dl (2.5-4.0); Total Protein 6.5 gm/dl (6.0-8.3)
--- NOTE | 2024-02-05 16:42 | Hospitalist Progress Note ---
Date of Service February 05, 2024 Assessment & Plan (1) Recent urinary tract infection: (2) Combative behavior: (3) Altered mental status: (4) Headache: (5) Dementia: (6) PATRICIA (acute kidney injury): (7) Sjogren's syndrome: (8) Hypothyroidism: (9) Hypertension: Plan 1. Altered mental status - Appearing most consistent with delirium. Deliriogenic factors appear to be predominantly dehydration, possibly changing environments from hospital stay back to personal care, possibly medication side effect to antibiotics. Does not appear currently to have infection. - supportive care, safe environment 2. Headache - brain imaging (both CT and MRI) negative 3. PATRICIA/urinary retention - appears to have been most consistent with dehydration, which was most likely the largest factor driving her delirium 4. Hypertension - blood pressure reasonable given hospitalization. Watchful waiting 5. Sjogren's syndrome Continue cyclosporine eyedrops - Continue systane eye drop - Continue flourometholone eye drop 6. Hypothyroidism Continue levothyroxine dispositionPT/OT eval and treat. Unfortunately this afternoon where getting more that her [facility] does not feel that they can take her back. Case management will have to work with patient and family on alternate disposition. Admission and Anticipated Discharge Date Admission Date: February 03, 2024 Subjective pt resting comfortably. no new issues noted. nursing noted that she is doing well today. Physical Exam Physical Exam: resting comfortably nad breathing unlabored no accessory muscles skin without rashes pallor or icterus Results & Data Results & Data Vital Signs (Past 12 Hours) Vital Signs Temp Pulse Pulse Resp BP Pulse Ox O2 Del Method 02/05/24 14:00 102 H 02/05/24 11:34 98.1 F 90 18 158/75 H 97 Room Air 02/05/24 08:00 98.4 F 100 H 18 174/79 H 97 Room Air 02/05/24 06:00 93 H PG Care Time/CCT Total # of Minutes Spent Total Time Spent with Patient: Total time spent is greater than 50% in coordination of care (as documented) at patient's floor/unit and/or counseling patient: Coding Level of Care Code 20044 SUB INP/OBS CARE 2/35MIN Diagnoses Recent urinary tract infection Z87.440 Combative behavior R46.89 Altered mental status R41.82 Altered mental status type: unspecified Headache R51.9 Headache chronicity pattern: acute headache Headache type: unspecified Intractability: not intractable Dementia F03.90 PATRICIA (acute kidney injury) N17.9 Sjogren's syndrome, with unspecified organ involvement M35.00 Sjogren organ or system involvement: unspecified organ involvement Hypothyroidism, unspecified type E03.9 Hypothyroidism type: unspecified Essential hypertension I10 Hypertension type: essential hypertension (3) Altered mental status Altered mental status type: unspecified Qualified Code(s): R41.82 - Altered mental status, unspecified (4) Headache Headache chronicity pattern: acute headache Headache type: unspecified Intractability: not intractable Qualified Code(s): R51.9 - Headache, unspecified (7) Sjogren's syndrome Sjogren organ or system involvement: unspecified organ involvement Qualified Code(s): M35.00 - Sjogren syndrome, unspecified (8) Hypothyroidism Hypothyroidism type: unspecified Qualified Code(s): E03.9 - Hypothyroidism, unspecified (9) Hypertension Hypertension type: essential hypertension Qualified Code(s): I10 - Essential (primary) hypertension
[2024-02-05] MEDS ORDERED: ARTIFICIAL TEARS OP PRN (18:47)
[2024-02-05] MEDS ORDERED: CYCLOSPORINE 0.05% OPB SCH (21:00)
[2024-02-05] MEDS: FAMOTIDINE 20 MG TAB PO SCH (21:31)
[2024-02-05] MEDS: MELATONIN 3 MG TAB PO SCH (21:31)
[2024-02-05] MEDS: busPIRone 5 MG TAB PO SCH (21:32)
[2024-02-05] MEDS: amLODIPine BESYLATE 5 MG TAB PO SCH (21:32)
[2024-02-05] MEDS: carvediloL 6.25 MG TAB PO SCH (21:33)
[2024-02-06] MEDS: DOCUSATE SODIUM 100 MG CAP PO PRN (04:55)
--- NOTE | 2024-02-06 06:58 | Hospitalist Progress Note ---
Date of Service February 06, 2024 Assessment & Plan (1) Recent urinary tract infection: (2) Combative behavior: (3) Altered mental status: (4) Headache: (5) Dementia: (6) PATRICIA (acute kidney injury): (7) Sjogren's syndrome: (8) Hypothyroidism: (9) Hypertension: Plan 1. Altered mental status Sent to the ED for agitation, confusion, and combative to staff altered from baseline dementia at [facility]. Pt likely to have delirium due to dehydration. Pt's affect is now stable and she has return to baseline. -Continue risperidone 0.5 mg hs for . -Awaiting placement in memory care facility stable. 2. Headache -Patient does not report c/o headache today, despite reported recent fall and hitting her head. -CT scan of the head negative. -MRI shows microvascular changes. No other significant findings. 3. PATRICIA/urinary retention -Patient's creatinine is elevated today at 1.3. -Consider NS bolus -Patient with established urinary retention, Gutierrez in place. Follows with urology. - Will continue to monitor with CMP 4. Hypertension -Highest BP has been 165/90 -Will consider restarting home meds in am 5. Sjogren's syndrome - pt encouraged to drink fluids and maintain hydration Continue cyclosporine eyedrops - Continue systane eye drop - Continue flourometholone eye drop 6. Hypothyroidism Continue levothyroxine Full code D/C to memory care Regular diet/ no IVF DVT prophylaxis- SCDs Admission and Anticipated Discharge Date Admission Date: February 03, 2024 Supervising Physician Co-Signing Physician Notes I personally examined the patient and verified all carranza points of history and exam, discussed case, and agree with decision making with Dr Escobar Seen twice today. Whenever first seen this morning pleasantly confused eating ice cream wondering when she can go home. Later see addendum to communication note in regards to stroke/TIA. At the time I first saw her this morning she was pleasant and in no distress, eating her ice cream I believe with hindsight possibly even holding the spoon with her left handdefinitely using both hands with good dexterity while she was eating, no facial droop drooling etc. Breathing unlabored no accessory muscle use good effort. Hard of hearing but able to communicate, pleasantly disoriented. Combative behavior at home after recent hospital stay - Underlying dementia with progressive to behavioral disturbancebut also easily could simply be delirium due to dehydration and changing environments superimposed on mild dementiadehydration has improved. No clear infection at this time. Ongoing supportive care. Work on disposition. Otherwise as above. (Again as above see addendum to communication note as well) Subjective Pt sitting up in chair eating breakfast today. She has her hearing aid in and able to hear conversations. She denies any pain today. Physical Exam Constitutional: WD/WN, vitals as above A&O x 1 Respiratory: normal respiratory effort, lungs clear to auscultation Gastrointestinal (Abdomen): normal bowel sounds, soft, nontender, no hepatosplenomegaly Musculoskeletal: Extremities: extremities normal to inspection Skin: no rashes, warm and dry Neurologic: PERRL, EOMI, accommodation nl, no face palsy, no dysarthria Results & Data Results & Data Vital Signs (Past 12 Hours) Vital Signs Temp Pulse Resp BP Pulse Ox O2 Del Method 02/05/24 23:52 Room Air 02/05/24 21:28 36.6 C 103 H 16 112/81 98 Room Air Resident Activity Tracking Resident Involvement: Resident Care Provided Care Provided: Adult Hospital Medicine (3) Altered mental status Altered mental status type: unspecified Qualified Code(s): R41.82 - Altered mental status, unspecified (4) Headache Headache chronicity pattern: acute headache Headache type: unspecified Intractability: not intractable Qualified Code(s): R51.9 - Headache, unspecified (7) Sjogren's syndrome Sjogren organ or system involvement: unspecified organ involvement Qualified Code(s): M35.00 - Sjogren syndrome, unspecified (8) Hypothyroidism Hypothyroidism type: unspecified Qualified Code(s): E03.9 - Hypothyroidism, unspecified (9) Hypertension Hypertension type: essential hypertension Qualified Code(s): I10 - Essential (primary) hypertension
[2024-02-06] MEDS: ASPIRIN 81 MG ECTAB PO SCH (08:13)
[2024-02-06] MEDS: DULoxetine HCL 20 MG CAP PO SCH (08:13)
[2024-02-06] MEDS: VIBEGRON 75 MG TAB PO SCH (08:14)
[2024-02-06] MEDS: SODIUM CHLORIDE 1 GM TABLET PO SCH (08:14)
[2024-02-06 09:55] LABS: Hematocrit (blood only) 34.8 % (37.0-47.0); Hemoglobin 11.1 g/dl (12.0-16.0); Mean Corpuscular Hemoglobin 29.9 pg (25.0-34.0); Mean Corpuscular Hgb Conc 31.9 g/dL (32.0-36.0); Mean Corpuscular Volume 93.8 fL (80.0-100.0); Mean Platelet Volume 9.5 fL (9.4-12.4); Platelet Count 308 K/uL (130-400); RDW Coefficient of Variation 14.5 % (11.5-14.5); Red Blood Count 3.71 M/uL (4.20-5.40); White Blood Count 7.17 K/ul (4.8-10.8)
[2024-02-06 10:11] LABS: BUN Creatinine Ratio 12.3 (10-20); Calcium 9.1 mg/dl (8.6-10.3); Creatinine Clr Calc Pharmacy 19.8 ml/min; Est GFR (African American) 39.2 ml/min; Est GFR (Non-African American) 33.8 ml/min; Potassium 3.7 mmol/L (3.5-5.1)
[2024-02-06] MEDS: OPTIRAY 320 125ml IV ONE (12:05)
--- NOTE | 2024-02-06 12:21 | CT Scan Report ---
HEAD CTA HISTORY: left sided weakness TECHNIQUE: Multiaxial CT images of the head were performed following the intravenous administration o f contrast to evaluate the major cerebral vessels. 3D/MIP images were also obtained. Sagittal and co josué reformats were reviewed. A dose lowering technique was utilized adhering to the principles of A GARRY. COMPARISON: Brain MRI 02/04/2024. FINDINGS: There is no mass, hematoma, midline shift, or acute infarct. Visualized intracranial business development intern al carotid arteries and distal vertebral arteries demonstrate mild multifocal narrowing without high- grade stenosis. The basilar artery is patent. There is no high-grade stenosis, occlusion, or aneurysm seen within the bilateral ACAs, MCAs, or transfer table operator. The majority of the major dural venous sinuses are no t well opacified but likely patent. Moderate calcified plaque within the bilateral carotid siphons wi thout high-grade stenosis. Calcified plaque within the distal vertebral arteries without high-grade s tenosis. Hypoplastic right P1 segment. Persistent left posterior circulation is noted. Mild mul tifocal narrowing seen throughout the majority of the cerebral arteries. IMPRESSION: Mild multifocal narrowing seen throughout the majority of the cerebral arteries without high-grade st enosis, occlusion, or aneurysm. ACT 112: Negative or not required by law. Electronically signed by: Lee Rose M.D. 02/06/2024 12:18 PM
--- NOTE | 2024-02-06 12:28 | CT Scan Report ---
CT head/brain wo con CLINICAL HISTORY: 89 years-old Female with neuro deficit, acute stroke suspected. Acute strokelike s ymptoms TECHNIQUE: Multiple axial CT images of the head were obtained without contrast. A dose lowering tech nique was utilized adhering to the principles of ALARA. COMPARISON: CTA head of same day, brain MRI 02/04/2024 FINDINGS: No acute intracranial hemorrhage, midline shift, intracranial mass, hydrocephalus, territorial ischem ia or abnormal extra-axial collection. Involutional changes with chronic microvascular ischemic disea se. Cerebral vascular calcifications. Study is mildly motion degraded. The calvarium is intact. Mastoid effusions. Paranasal sinuses are generally clear. IMPRESSION: No acute intracranial abnormality identified. ACT 112: Negative or not required by law. The above report was generated using voice recognition software. It may contain grammatical, syntax o r spelling errors. Electronically signed by: Chuy Albright M.D. 02/06/2024 12:25 PM
--- NOTE | 2024-02-06 12:43 | CT Scan Report ---
CT angio neck with con CLINICAL HISTORY: left sided weakness TECHNIQUE: CT angiography of the neck was performed following intravenous administration of iodinated contrast. Coronal and sagittal MIPS were obtained from the axial data set and were submitted for rev iew. Automated dose lowering techniques and/or adjustment according to patient size were utilized fo r this examination. All measurements were calculated based on NASCET criteria. CT DOSE: 958.14 mGy.cm Comparison: None available at the time of this dictation. FINDINGS: Biapical scarring is seen. CTA Neck: A 3 vessel aortic arch is shown. There is no significant atherosclerotic plaque in the aor tic arch or the origins of the innominate, left common carotid, and left subclavian arteries. 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 Nonhemodynamically significant atherosclerosis is seen on the left. The left vertebral artery is dominant. 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 Assessment of stenosis of the internal carotid arteries is based on NASCET criteria. ACT 112: Negative or not required by law. Electronically signed by: Christopher Oconnell M.D. 02/06/2024 12:41 PM
[2024-02-06] MEDS ORDERED: PHARMACIST DISCHARGE MED REC CONSULT PRN (12:52)
[2024-02-06 13:01] LABS: Magnesium 1.6 mg/dl (1.7-2.4)
[2024-02-06 13:17] LABS: Partial Thromboplastin Ratio 0.9; Partial Thromboplastin Time 24 Seconds (21-31); Prothrombin Time 11.2 Seconds (9.0-12.0)
[2024-02-06 13:22] LABS: Troponin I High Sensitivity 6.3 pg/ml (0-14)
[2024-02-06] MEDS: SODIUM CHLORIDE 0.9% 500 ML IV ONE (14:19)
[2024-02-06] MEDS: CLOPIDOGREL BISULFATE 300 MG TAB PO ONE (14:55)
[2024-02-06] MEDS: ASPIRIN/ALUM/MAGNES/CAL CARB 325 MG TAB PO ONE (14:55)
--- NOTE | 2024-02-06 17:12 | Communication Note ---
Date of Service: February 06, 2024 Alerted to neurological change by Opal Mack RN pt due to findings of left sided facial droop and L arm weakness. Stroke alert called. Resident to bedside, Dr. Du present. Stroke pathway activated. -Noncontrast Head CT showed no hemorrhage -Neck CT showed mild narrowing throughout cerebral arteries, but no major stenosis. -Transferred to ICU for possible TNKase administration -Seen by teleneurology. -While discussing case with Celeste neurologist, pt's symptoms started to improve. As improving no indication for TNKase Plavix and ASA loaded. Will continue with DAPT for 3 weeks, then monotherapy indefinitely. MRI brain, lipids, HbA1c ordered. Start rosuvastatin 20 mg QAM. Hold off on neurology consult for now. Continue to monitor at the PCU/tele unit in [facility] Family updated at bedside. I personally examined the patient and verified all carranza points of history and exam, discussed case, and agree with decision making with Dr Escobar immediately assessed patient after information by nursing that she showed abrupt onset of left-sided weaknesson assessment she did indeed appear to have a new left facial droop as well as left arm weakness. Sensation and motor were a bit difficult to grade due to her confusion, but clearly new, clearly abrupt. Last known well about 10 AM. Sent immediately for head CT/CT angio and stroke protocol activated. Discussed with stroke neurologistas stroke neurologist was in the room via telehealth and I was assisting with examination, her left facial droop and left arm weakness were starting to spontaneously improve. By the time the decision was made that thrombolytics were clearly not indicated and I continue to observe her and discuss further with the family, she was moving her left arm fairly freely, and there might have been a slight residual facial droop versus simply her positioning in the bedclearly far better than before. Cerebrovascular ischemiawith resolving deficits, fortunately appears to have been a TIA. Most likely intracranial atherosclerosis. Med management as above. Ongoing telemetry monitoring for paroxysmal A-fib, although I suspect this is not the case. Approximately 80 minutes at the bedside from about 11:50 AM to 1:10 PM, critical care time. Resident Activity Tracking Resident Involvement: Resident Care Provided Care Provided: Adult [place] [facility]
--- NOTE | 2024-02-06 18:14 | Billing Data ---
Date of Service February 06, 2024 Coding Level of Care Code 70360 CRITICAL CARE
--- NOTE | 2024-02-06 18:14 | Billing Data ---
Date of Service February 06, 2024 Coding Level of Care Code 53905 SUB INP/OBS CARE
[2024-02-06] MEDS: LORazepam 0.5 MG in SYRINGE 0.25 ML IV ONE (21:31)
--- NOTE | 2024-02-07 01:12 | Magnetic Resonance Report ---
Exam(s): MRI HEAD Without Contrast EXAM: MR Head Without Intravenous Contrast CLINICAL HISTORY: Reason for exam: stroke r/o. TECHNIQUE: Magnetic resonance images of the head/brain without intravenous contrast in multiple planes. Limited sequences obtained. COMPARISON: CTA 02/06/24 FINDINGS: Brain: No diffusion restriction to suggest acute cerebral ischemia. Generalized parenchymal volume loss. Chronic small vessel ischemic changes in the periventricular and deep cerebral white matter. No evidence of hemorrhage, mass-effect, or midline shift. Ventricles: Unremarkable. No hydrocephalus. Bones/joints: Unremarkable. No acute fracture. Sinuses: Unremarkable as visualized. Mastoid air cells: Limited evaluation. Orbits: Bilateral lens replacements.. IMPRESSION: No evidence of acute cerebral ischemia. Electronically signed by: Zeinab Christie M.D. 02/07/24 01:11 AM
[2024-02-07 05:01] LABS: Hematocrit (blood only) 28.5 % (37.0-47.0); Hemoglobin 9.5 g/dl (12.0-16.0); Mean Corpuscular Hemoglobin 30.3 pg (25.0-34.0); Mean Corpuscular Hgb Conc 33.3 g/dL (32.0-36.0); Mean Corpuscular Volume 90.8 fL (80.0-100.0); Mean Platelet Volume 9.5 fL (9.4-12.4); Platelet Count 305 K/uL (130-400); RDW Coefficient of Variation 14.4 % (11.5-14.5); RDW Standard Deviation 47.6 fL (36.4-46.3); Red Blood Count 3.14 M/uL (4.20-5.40); White Blood Count 6.13 K/ul (4.8-10.8)
[2024-02-07 05:16] LABS: BUN Creatinine Ratio 13.2 (10-20); Calcium 8.6 mg/dl (8.6-10.3); Creatinine Clr Calc Pharmacy 17.3 ml/min; Est GFR (African American) 35.1 ml/min; Est GFR (Non-African American) 30.3 ml/min; Potassium 3.5 mmol/L (3.5-5.1)
--- NOTE | 2024-02-07 07:04 | Hospitalist Progress Note ---
Date of Service February 07, 2024 Assessment & Plan (1) Recent urinary tract infection: (2) Combative behavior: (3) Altered mental status: (4) Headache: (5) Dementia: (6) PATRICIA (acute kidney injury): (7) Sjogren's syndrome: (8) Hypothyroidism: (9) Hypertension: Plan TIA Patient with transient ischemic attack 02/06 - See communication note for further documentation. ASA and plavix loaded. Will continue DAPT for 3 weeks, then Plavix indefinitely. No signs of stroke on imaging. HbA1c 6.1. LDL 145. Start rosuvastatin 20 mg. OT/PT - rec SNF CM - referral to [facility] medical management - DAPT, statin, BP control Delirium on Dementia Sent to the ED for agitation, confusion, and combative to staff altered from baseline dementia at personal alf. Likely hospital acquired delirium vs dehydration related on top of baseline dementia. Agitation minimal at present. May also be a component of miscommunication as patient extremely hard of hearing. risperidone 0.5 mg QHS for owning. SNF then will likely need PCF vs memory care unit PATRICIA/urinary retention Patient with creatinine bump. Known urinary retention. Gutierrez in place. Follows with urology. IVF @ 80 mL/hr Hypertension Antihypertensives intermittently held based on mental status/allowing for permissive HTN. Will restart home meds. amlodipine 5 mg BID, carvedilol 6.25 mg BID 5. Sjogren's syndrome Pt encouraged to drink fluids and maintain hydration Continue cyclosporine eyedrops - Continue systane eye drop - Continue flourometholone eye drop 6. Hypothyroidism Continue levothyroxine Code status: full DVT ppx: on ASA plavix FENGI: IVF @ 80 mL, encourage PO Dispo: MedSurg, awaiting placement Admission and Anticipated Discharge Date Admission Date: February 03, 2024 Supervising Physician Co-Signing Physician Notes I personally examined the patient and verified all carranza points of history and exam, discussed case, and agree with decision making with Dr Polanco No meaningful HPI review of systems obtainable from patient today. Extensive update with family. Answered all questions to the best my ability and to their satisfaction. Vitals noted, in general she is asleep, but appears to be in no distress. No lateralizing signs/facial droop has resolved. Breathing unlabored no accessory muscle use. Skin without rashes pallor or icterus. Deliriumappears to have been prior infection, environmental between being in the hospital and then back to personal care, acutely this admission due to dehydration (elevated creatinine) and environmentwill obviously need ongoing encouragement and vigilance as far as p.o. fluid intake. No signs of infection at this time. Reassurance/supportive care/reorientation. Would likely benefit from SNF stay for protected environment and ongoing therapy. TIAhad abrupt onset of clearly evident left facial droop and left arm weakness yesterday that lasted about an hour and spontaneously resolved. MRI negative. No high-grade stenoses in large vessels, no evidence of cardioembolic source. Most likely intracranial atherosclerosis. Aspirin plus Plavix for now, followed by Plavix alone indefinitely. Rosuvastatin. DVT prophylaxisaspirin/Plavix, mobility as possible. Dispoanticipate SNF at this time. Discussed that it is not clear from what I know about her to be able to say she definitely needs memory care/a dementia unit. We did discuss how very frequently family members (including use an example of myself from my own life years ago) will often underestimate the severity of dementia and our own loved onesand probably the best way to determine at this point if she would forever need a memory care unit would be trying to get an honest assessment of what her status truly was 1-2 months ago (they are going to discuss with the nurse who took care of her for the last 16 months). Acutely SNF appears to be most appropriate, and then they can start to build more long-term plans based on her progress, as well as based on getting a more clinically based assessment of her mental status prior to her acute deliriums from her most recent hospital stays over the last month. probably 45mins face to face Subjective No meaningful history obtained. Hearing aids do not appear to be in place. Review of Systems Review of Systems: See HPI Physical Exam Physical Exam: Gen: frail appearing patient in NAD HEENT: AT NC MMM Resp: no increased work of breathing CV: clinically well perfused Abd: non-distended MSK: no obvious deformities Skin: no rashes or bruising Neuro: alert and oriented Psych: appropriate mood and affect Resident Activity Tracking Resident Involvement: Resident Care Provided Care Provided: Adult [facility] (3) Altered mental status Altered mental status type: unspecified Qualified Code(s): R41.82 - Altered mental status, unspecified (4) Headache Headache chronicity pattern: acute headache Headache type: unspecified Intractability: not intractable Qualified Code(s): R51.9 - Headache, unspecified (7) Sjogren's syndrome Sjogren organ or system involvement: unspecified organ involvement Qualified Code(s): M35.00 - Sjogren syndrome, unspecified (8) Hypothyroidism Hypothyroidism type: unspecified Qualified Code(s): E03.9 - Hypothyroidism, unspecified (9) Hypertension Hypertension type: essential hypertension Qualified Code(s): I10 - Essential (primary) hypertension
[2024-02-07 08:04] LABS: Estimated Average Glucose 128 mg/dl; Hemoglobin A1C 6.1 % (4.5-5.6)
[2024-02-07] MEDS: CLOPIDOGREL BISULFATE 75 MG TAB PO SCH (08:38)
[2024-02-07] MEDS: ROSUVASTATIN CALCIUM 20 MG TAB PO SCH (08:39)
[2024-02-07] MEDS: LACTATED RINGER'S 1,000 ML IV SCH (09:56)
--- NOTE | 2024-02-07 16:31 | Billing Data ---
Date of Service February 07, 2024 Coding Level of Care Code 29779 SUB INP/OBS CARE
[2024-02-07] MEDS: carvediloL 6.25 MG TAB PO SCH (16:32)
[2024-02-07] MEDS: busPIRone 5 MG TAB PO SCH (20:32)
[2024-02-07] MEDS: amLODIPine BESYLATE 5 MG TAB PO SCH (20:32)
[2024-02-08 07:01] LABS: Hematocrit (blood only) 28.6 % (37.0-47.0); Hemoglobin 9.4 g/dl (12.0-16.0); Mean Corpuscular Hemoglobin 30.2 pg (25.0-34.0); Mean Corpuscular Hgb Conc 32.9 g/dL (32.0-36.0); Mean Platelet Volume 9.5 fL (9.4-12.4); Platelet Count 310 K/uL (130-400); RDW Coefficient of Variation 14.4 % (11.5-14.5); RDW Standard Deviation 48.6 fL (36.4-46.3); Red Blood Count 3.11 M/uL (4.20-5.40)
[2024-02-08 07:10] LABS: BUN Creatinine Ratio 14.9 (10-20); Calcium 8.3 mg/dl (8.6-10.3); Creatinine Clr Calc Pharmacy 22.6 ml/min; Est GFR (African American) 45.9 ml/min; Est GFR (Non-African American) 39.6 ml/min; Magnesium 1.5 mg/dl (1.7-2.4); Potassium 3.9 mmol/L (3.5-5.1)
[2024-02-08] MEDS: MAGNESIUM SULFATE / D5W 1 GM/100 ML BAG IV SCH (08:09)
--- NOTE | 2024-02-08 13:00 | Hospitalist Progress Note ---
Date of Service February 08, 2024 Assessment & Plan (1) Recent urinary tract infection: (2) Combative behavior: (3) Altered mental status: (4) Headache: (5) Dementia: (6) PATRICIA (acute kidney injury): (7) Sjogren's syndrome: (8) Hypothyroidism: (9) Hypertension: Plan TIA Patient with transient ischemic attack 02/06 - See communication note for further documentation. ASA and plavix loaded. Will continue DAPT for 3 weeks, then Plavix indefinitely. No signs of stroke on imaging. HbA1c 6.1. LDL 145. Start rosuvastatin 20 mg. OT/PT - rec SNF CM - referral to [facility] medical management - DAPT, statin, BP control (Blood pressure notably high this morning, but this has been an outliergiven the recent TIA, would want to manage to slightly tighter control if she is persistently high, but at the same time given her age, frailty, and comorbidities, do not want to risk iatrogenic harm by to aggressively treating a number that at this point is much more of an outlier than a trend) Delirium on Dementia Sent to the ED for agitation, confusion, and combative to staff altered from baseline dementia at personal group home. Likely hospital acquired delirium vs dehydration related on top of baseline dementia. Agitation minimal at present. May also be a component of miscommunication as patient extremely hard of hearing. risperidone 0.5 mg QHS for . SNF then will likely need PCF vs memory care unit PATRICIA/urinary retention Patient with creatinine bump. almost certainly poor p.o. fluid intake, improving. IVF @ 80 mL/hr Hypertension Antihypertensives intermittently held based on mental status/allowing for permissive HTN. Will restart home meds. amlodipine 5 mg BID, carvedilol 6.25 mg BID 5. Sjogren's syndrome Pt encouraged to drink fluids and maintain hydration Continue cyclosporine eyedrops - Continue systane eye drop - Continue flourometholone eye drop 6. Hypothyroidism Continue levothyroxine Code status: full DVT ppx: on ASA plavix FENGI: IVF @ 80 mL, encourage PO Dispo: MedSurg, awaiting placement, Stable once bed available/insurance approval obtained Admission and Anticipated Discharge Date Admission Date: February 03, 2024 Subjective No meaningful HPI review of systems obtainable. Physical Exam Physical Exam: In general she is resting comfortably. Appears to be in no distress. No focal neurodeficits no facial droop. Skin without rashes pallor or icterus. Results & Data Results & Data Vital Signs (Past 12 Hours) Vital Signs Temp Pulse Resp BP Pulse Ox O2 Del Method 02/08/24 08:55 Room Air 02/08/24 07:52 97.5 F L 94 H 18 195/94 H 98 Room Air PG Care Time/CCT Total # of Minutes Spent Total Time Spent with Patient: Total time spent is greater than 50% in coordination of care (as documented) at patient's floor/unit and/or counseling patient: Coding Level of Care Code 44270 SUB INP/OBS CARE 2/35MIN Diagnoses Recent urinary tract infection Z87.440 Combative behavior R46.89 Altered mental status R41.82 Altered mental status type: unspecified Headache R51.9 Headache chronicity pattern: acute headache Headache type: unspecified Intractability: not intractable Dementia F03.90 PATRICIA (acute kidney injury) N17.9 Sjogren's syndrome, with unspecified organ involvement M35.00 Sjogren organ or system involvement: unspecified organ involvement Hypothyroidism, unspecified type E03.9 Hypothyroidism type: unspecified Essential hypertension I10 Hypertension type: essential hypertension (3) Altered mental status Altered mental status type: unspecified Qualified Code(s): R41.82 - Altered mental status, unspecified (4) Headache Headache chronicity pattern: acute headache Headache type: unspecified Intractability: not intractable Qualified Code(s): R51.9 - Headache, unspecified (7) Sjogren's syndrome Sjogren organ or system involvement: unspecified organ involvement Qualified Code(s): M35.00 - Sjogren syndrome, unspecified (8) Hypothyroidism Hypothyroidism type: unspecified Qualified Code(s): E03.9 - Hypothyroidism, unspecified (9) Hypertension Hypertension type: essential hypertension Qualified Code(s): I10 - Essential (primary) hypertension
[2024-02-08] MEDS: ACETAMINOPHEN 500 MG TAB PO PRN (20:59)
[2024-02-09 06:31] LABS: Hematocrit (blood only) 29.1 % (37.0-47.0); Hemoglobin 9.7 g/dl (12.0-16.0); Mean Corpuscular Hemoglobin 30.3 pg (25.0-34.0); Mean Corpuscular Hgb Conc 33.3 g/dL (32.0-36.0); Mean Corpuscular Volume 90.9 fL (80.0-100.0); Mean Platelet Volume 9.3 fL (9.4-12.4); Platelet Count 310 K/uL (130-400); RDW Coefficient of Variation 13.9 % (11.5-14.5); RDW Standard Deviation 46.3 fL (36.4-46.3); White Blood Count 6.43 K/ul (4.8-10.8)
--- NOTE | 2024-02-09 06:47 | Hospitalist Progress Note ---
Date of Service February 09, 2024 Assessment & Plan (1) Recent urinary tract infection: (2) Combative behavior: (3) Altered mental status: (4) Headache: (5) Dementia: (6) PATRICIA (acute kidney injury): (7) Sjogren's syndrome: (8) Hypothyroidism: (9) Hypertension: Plan TIA Patient with transient ischemic attack 02/06 - See communication note for further documentation. ASA and Plavix started at that time. Plan to continue DAPT for 3 weeks, then Plavix indefinitely. No signs of stroke on imaging. HbA1c 6.1. LDL 145. Start rosuvastatin 20 mg. OT/PT - rec SNF CM - referral to [facility] Continue DAPT and rosuvastatin Monitor BP Delirium on Dementia Sent to the ED for agitation, confusion, and combative to staff altered from baseline dementia at personal long-term. Likely hospital acquired delirium vs dehydration related on top of baseline dementia. Agitation no longer present, but continues with disorientation that varies throughout the day. Hearing impairment may also be playing a role in her confusion. risperidone 0.5 mg QHS for . SNF then will likely need PCF vs memory care unit PATRICIA/urinary retention Patient's creatinine has returned to her baseline range. Known urinary retention with lees in place. Follows with outpatient urology. IVF @ 80 mL/hr Hypertension Antihypertensives intermittently held based on mental status/allowing for permissive HTN. Will restart home meds. amlodipine 5 mg BID, carvedilol 6.25 mg BID 5. Sjogren's syndrome Pt encouraged to drink fluids and maintain hydration Continue cyclosporine eyedrops - Continue systane eye drop - Continue flourometholone eye drop 6. Hypothyroidism Continue levothyroxine Code status: full DVT ppx: on ASA plavix FENGI: IVF @ 80 mL, encourage PO/ heart healthy diet, minced and moist Dispo: MedSurg, awaiting placement Admission and Anticipated Discharge Date Admission Date: February 03, 2024 Supervising Physician Co-Signing Physician Notes Patient seen and examined, chart reviewed, case discussed with Dr. Escobar and I agree with the assessment and plan as above except as otherwise noted Labs and images reviewed He is seen at the bedside. Sleeping comfortably, awakens easily. Pleasantly confused, falls back asleep easily. At time of assessment she has no facial droop, breathing is unlabored. No evidence of ongoing neurologic deficits. High risk for delirium, continue delirium precautions. Placement referrals are pending, medically stable for discharge at this time. Remains slightly hypertensive but with intermittent normal blood pressures, risk exceeds benefit of adding on additional hypertensive control at this time. Agree with assessment and management above Subjective Pt was lethargic and pleasantly confused this morning. She denied pain or discomfort. No other information could be elicited. Physical Exam Constitutional: WD/WN, vitals as above Respiratory: normal respiratory effort, lungs clear to auscultation Gastrointestinal (Abdomen): normal bowel sounds, soft, nontender, no hepatosplenomegaly Musculoskeletal: Extremities: extremities normal to inspection Skin: no rashes, warm and dry Neurologic: PERRL, EOMI, accommodation nl, no face palsy, no dysarthria Psychiatric: Orientation: oriented to person Genitourinary: Lees in place. Urine is clear, pale yellow. Results & Data Results & Data Vital Signs (Past 12 Hours) Vital Signs Temp Pulse Resp BP Pulse Ox O2 Del Method 02/08/24 21:05 Room Air 02/08/24 19:51 36.4 C L 97 H 17 138/78 98 Room Air Laboratory Results 02/09/24 Range/Units 06:05 WBC 6.43 (4.8-10.8) K/ul RBC 3.20 L (4.20-5.40) M/uL Hgb 9.7 L (12.0-16.0) g/dl Hct 29.1 L (37.0-47.0) % MCV 90.9 (80.0-100.0) fL MCH 30.3 (25.0-34.0) pg MCHC 33.3 (32.0-36.0) g/dL RDW Std Deviation 46.3 (36.4-46.3) fL RDW Coeff of Neto 13.9 (11.5-14.5) % Plt Count 310 (130-400) K/uL MPV 9.3 L (9.4-12.4) fL Sodium 134 L (136-145) mmol/L Potassium 3.8 (3.5-5.1) mmol/L Chloride 102 (98-107) mmol/L Carbon Dioxide 27 (21-32) mmol/L Anion Gap 5 (3-11) BUN 17 (6-23) mg/dl Creatinine 1.18 (0.6-1.2) mg/dl Est Cr Clr Drug Dosing 23.2 ml/min Est GFR ( Amer) 47.4 ml/min Est GFR (Non-Af Amer) 40.9 ml/min BUN/Creatinine Ratio 14.4 (10-20) Glucose 110 H (70-99(Fasting)) mg/dl Calcium 8.4 L (8.6-10.3) mg/dl Magnesium 1.8 (1.7-2.4) mg/dl (3) Altered mental status Altered mental status type: unspecified Qualified Code(s): R41.82 - Altered mental status, unspecified (4) Headache Headache chronicity pattern: acute headache Headache type: unspecified Intractability: not intractable Qualified Code(s): R51.9 - Headache, unspecified (7) Sjogren's syndrome Sjogren organ or system involvement: unspecified organ involvement Qualified Code(s): M35.00 - Sjogren syndrome, unspecified (8) Hypothyroidism Hypothyroidism type: unspecified Qualified Code(s): E03.9 - Hypothyroidism, unspecified (9) Hypertension Hypertension type: essential hypertension Qualified Code(s): I10 - Essential (primary) hypertension
[2024-02-09 06:58] LABS: BUN Creatinine Ratio 14.4 (10-20); Calcium 8.4 mg/dl (8.6-10.3); Creatinine Clr Calc Pharmacy 23.2 ml/min; Est GFR (African American) 47.4 ml/min; Est GFR (Non-African American) 40.9 ml/min; Magnesium 1.8 mg/dl (1.7-2.4); Potassium 3.8 mmol/L (3.5-5.1)
--- NOTE | 2024-02-09 12:10 | Billing Data ---
Date of Service February 09, 2024 Coding Level of Care Code 82295 INT INP/OBS CARE
[2024-02-10 07:49] LABS: Hemoglobin 9.3 g/dl (12.0-16.0); Mean Corpuscular Hemoglobin 30.4 pg (25.0-34.0); Mean Corpuscular Hgb Conc 33.2 g/dL (32.0-36.0); Mean Corpuscular Volume 91.5 fL (80.0-100.0); Mean Platelet Volume 9.5 fL (9.4-12.4); Platelet Count 309 K/uL (130-400); RDW Coefficient of Variation 14.2 % (11.5-14.5); RDW Standard Deviation 47.2 fL (36.4-46.3); Red Blood Count 3.06 M/uL (4.20-5.40); White Blood Count 7.54 K/ul (4.8-10.8)
[2024-02-10 08:08] LABS: BUN Creatinine Ratio 13.9 (10-20); Calcium 8.3 mg/dl (8.6-10.3); Creatinine Clr Calc Pharmacy 22.5 ml/min; Est GFR (African American) 45.5 ml/min; Est GFR (Non-African American) 39.2 ml/min; Magnesium 1.7 mg/dl (1.7-2.4); Potassium 4.1 mmol/L (3.5-5.1)
--- NOTE | 2024-02-10 10:24 | Hospitalist Progress Note ---
Date of Service February 10, 2024 Assessment & Plan (1) Recent urinary tract infection: Plan: consider UA and urine culture prior to alf placement - 600cc of yellow-clear urine in lees bag (2) Combative behavior: Plan: not currently a concern, A&Ox3 with pleasant mood - understands plan for placement in alf (3) Altered mental status: Plan: not currently a concern, A&Ox3 with pleasant mood and clear speech - understands plan for placement in alf - continue monitoring - consider UA and urine culture (4) Headache: Plan: current mild headache, generalized - able to self-soothe by massaging zygomatic processes - acetaminophen 1000mg q6prn for pain control (5) Dementia: Plan: currently A&Ox3, not combative - CT head shows no evidence of ischemia of brain tissue, only generalized decrease in parenchymal volume (6) PATRCIIA (acute kidney injury): Plan: Patient's creatinine has returned to her baseline range. Known urinary retention with lees in place. Follows with outpatient urology. - currently 600cc yellow-clear urine in lees bag IVF @ 80 mL/hr (7) Sjogren's syndrome: Plan: Pt encouraged to drink fluids and maintain hydration Continue cyclosporine eyedrops - Continue systane eye drop - Continue flourometholone eye drop (8) Hypothyroidism: Plan: continue levothyroxine 125mcg daily (9) Hypertension: Plan: permissive HTN allowed - generally systolic 140s-180s over diastolic 50s-90s - since patient is currently alert and oriented, will consider restarting on home BP meds tomorrow Plan TIA Patient with transient ischemic attack 02/06 - See communication note for further documentation. ASA and Plavix started at that time. Plan to continue DAPT for 3 weeks, then Plavix indefinitely. No signs of stroke on imaging. HbA1c 6.1. LDL 145. Start rosuvastatin 20 mg. OT/PT - rec SNF CM - referral to [facility] Continue DAPT and rosuvastatin Monitor BP Delirium on Dementia Sent to the ED for agitation, confusion, and combative to staff altered from baseline dementia at personal long-term. Likely hospital acquired delirium vs dehydration related on top of baseline dementia. Agitation no longer present, but continues with disorientation that varies throughout the day. Hearing impairment may also be playing a role in her confusion. risperidone 0.5 mg QHS for . SNF then will likely need PCF vs memory care unit PATRICIA/urinary retention Patient's creatinine has returned to her baseline range. Known urinary retention with lees in place. Follows with outpatient urology. IVF @ 80 mL/hr Hypertension Antihypertensives intermittently held based on mental status/allowing for permissive HTN. Will restart home meds. amlodipine 5 mg BID, carvedilol 6.25 mg BID 5. Sjogren's syndrome Pt encouraged to drink fluids and maintain hydration Continue cyclosporine eyedrops - Continue systane eye drop - Continue flourometholone eye drop 6. Hypothyroidism Continue levothyroxine Code status: full DVT ppx: on ASA plavix FENGI: IVF @ 80 mL, encourage PO/ heart healthy diet, minced and moist Dispo: MedSurg, awaiting placement Admission and Anticipated Discharge Date Admission Date: February 03, 2024 Supervising Physician Co-Signing Physician Notes Patient seen and examined, chart reviewed, case discussed with Dr. Hogan and I agree with the assessment and plan as above except as otherwise noted Labs and images reviewed Patient seen at bedside. Awakens easily, falls back asleep following conversation. Extremely hard of hearing. History limited by cognitive status no acute concerns. Pending placement. Renal function remains within her normal range. Agree with above Subjective Pt was seen at bedside, resting comfortably watching TV, in pleasant mood but L hearing aid charging so she is especially hard of hearing. Was able to communicate where her hearing aid was, speech high-pitched but clear and easy to understand. She denied any pain or discomfort at time of examination. No other information could be elicited. Saw patient again at 5pm, has hearing aid in and able to hear and understand me, alert & oriented x4. Denies having any pain or significant discomfort. Understands that plan is to be discharged to alf and is currently awaiting placement. Review of Systems Review of Systems: All systems reviewed & are unremarkable except as noted in HPI & below See HPI Physical Exam 2 Constitutional: + thin appears stated age and in no acute distress, lying comfortable in bed, not combative, A&Ox3 (name & , place, and current president) Eyes: PERRL, conjunctivae normal, anicteric sclerae ENMT: external ear and nose normal, oropharynx normal Respiratory: normal respiratory effort, lungs clear to auscultation Cardiovascular: RRR, no murmur, no edema Gastrointestinal (Abdomen): normal bowel sounds, soft, nontender, no hepatosplenomegaly Percussion/Palpation: abdomen soft Musculoskeletal: Head/Neck/Chest: neck supple Skin: no rashes, warm and dry Results & Data Results & Data Vital Signs (Past 12 Hours) Vital Signs Temp Pulse Resp BP Pulse Ox O2 Del Method 02/10/24 07:45 Room Air 02/10/24 07:18 36.5 C 94 H 17 176/81 H 98 Room Air Laboratory Results See results Resident Activity Tracking Resident Involvement: Resident Care Provided Care Provided: Adult [facility] Medicine (3) Altered mental status Altered mental status type: unspecified Qualified Code(s): R41.82 - Altered mental status, unspecified (4) Headache Headache chronicity pattern: acute headache Headache type: unspecified Intractability: not intractable Qualified Code(s): R51.9 - Headache, unspecified (7) Sjogren's syndrome Sjogren organ or system involvement: unspecified organ involvement Qualified Code(s): M35.00 - Sjogren syndrome, unspecified (8) Hypothyroidism Hypothyroidism type: unspecified Qualified Code(s): E03.9 - Hypothyroidism, unspecified (9) Hypertension Hypertension type: essential hypertension Qualified Code(s): I10 - Essential (primary) hypertension
--- NOTE | 2024-02-10 16:41 | Billing Data ---
Date of Service February 10, 2024 Coding Level of Care Code 90192 SUB INP/OBS CARE
[2024-02-10] MEDS ORDERED: DICLOFENAC SOD 1% GEL 100 GM TUBE EXT PRN (18:04)
--- NOTE | 2024-02-11 07:01 | Hospitalist Progress Note ---
Date of Service February 11, 2024 Assessment & Plan (1) Recent urinary tract infection: Plan: 02/02/24: UA only significant for hyaline casts - has been receiving IV hydration at 80mL/hr 02/11/24: 400cc of yellow-clear urine in lees bag this morning - continue monitoring for fevers and changes in mental status (2) Combative behavior: Plan: A&Ox3 with pleasant mood as of 9:30am today - receiving risperidone 0.5mg QHS for owning - understands plan for placement in long term Present on Admission?: Yes (3) Altered mental status: Plan: A&Ox3 with pleasant mood and clear speech as of 9:30am today - understands plan for placement in long term - continue monitoring - receiving risperidone 0.5mg QHS for owning Present on Admission?: Yes (4) Headache: Plan: denies currently - able to self-soothe by massaging zygomatic processes - acetaminophen 1000mg q6prn for pain control (5) Dementia: Plan: currently A&Ox3, not combative - CT head shows no evidence of ischemia of brain tissue, only generalized decrease in parenchymal volume - receiving risperidone 0.5mg QHS for owning Present on Admission?: Yes (6) PATRICIA (acute kidney injury): Plan: Patient's creatinine was back to baseline yesterday but is back up to 1.22 on 02/10/24 -Known urinary retention with lees in place. Follows with outpatient urology. - currently 400cc yellow-clear urine in lees bag - continue IVF (LR) @ 80 mL/hr (7) Sjogren's syndrome: Plan: Pt encouraged to drink fluids and maintain hydration Continue cyclosporine eyedrops - Continue systane eye drop - Continue flourometholone eye drop Present on Admission?: Yes (8) Hypothyroidism: Plan: continue levothyroxine 125mcg daily Present on Admission?: Yes (9) Hypertension: Plan: permissive HTN allowed - generally systolic 140s-180s over diastolic 50s-90s - since patient is currently alert and oriented, will consider restarting on home BP meds tomorrow (10) Transient ischemic attack (TIA): Plan: Patient with transient ischemic attack 02/06 - See communication note for further documentation. ASA and Plavix started at that time. Plan to continue DAPT for 3 weeks, then Plavix indefinitely. No signs of stroke on imaging. HbA1c 6.1. LDL 145. Start rosuvastatin 20 mg. OT/PT - rec SNF CM - referral to [facility] Continue DAPT and rosuvastatin Monitor BP Present on Admission?: No Plan TIA Patient with transient ischemic attack 02/06 - See communication note for further documentation. ASA and Plavix started at that time. Plan to continue DAPT for 3 weeks, then Plavix indefinitely. No signs of stroke on imaging. HbA1c 6.1. LDL 145. Start rosuvastatin 20 mg. OT/PT - rec SNF CM - referral to [facility] Continue DAPT and rosuvastatin Monitor BP Delirium on Dementia Sent to the ED for agitation, confusion, and combative to staff altered from baseline dementia at [facility]. Likely hospital acquired delirium vs dehydration related on top of baseline dementia. Agitation no longer present, but continues with disorientation that varies throughout the day. Hearing impairment may also be playing a role in her confusion. risperidone 0.5 mg QHS for . SNF then will likely need PCF vs memory care unit PATRICIA/urinary retention Creatinine 1.22 today, back up from baseline yesterday. Known urinary retention with lees in place. Follows with outpatient urology. - about 400cc yellow-clear urine in lees bag - plan to continue IVF @ 80 mL/hr Hypertension Antihypertensives intermittently held based on mental status/allowing for permissive HTN. Will restart home meds. amlodipine 5 mg BID, carvedilol 6.25 mg BID 5. Sjogren's syndrome Pt encouraged to drink fluids and maintain hydration Continue cyclosporine eyedrops - Continue systane eye drop - Continue flourometholone eye drop 6. Hypothyroidism Continue levothyroxine Code status: full DVT ppx: on ASA plavix FENGI: IVF @ 80 mL, encourage PO/ heart healthy diet, minced and moist Dispo: MedSurg, awaiting placement Admission and Anticipated Discharge Date Admission Date: February 03, 2024 Supervising Physician Co-Signing Physician Notes Patient seen and examined, chart reviewed, case discussed with Dr. Crowder and I agree with the assessment and plan as above except as otherwise noted Labs and images reviewed Seen at the bedside. Sleeping comfortably. No acute distress, awakens easily pleasant. No questions or concerns. Breathing unlabored, symmetrical chest rise pending [facility]. No questions at time of visit. Oriented to name and hospital at time of visit. No signs of recurrent/acute neuro deficits. Continue delirium precautions. Renal function stable. Subjective Pt was seen at bedside, resting comfortably and eating breakfast, in pleasant mood, hearing aid in place. Speech slightly slow but easy to understand, alert and oriented to person, place, and president of [place]. Slow arm movements when eating breakfast but good coordination, able to swallow liquids, applesauce, and small pieces of scrambled egg. Denies any pain or discomfort at time of examination. Patient denies any bowel movement in a few days, has urge to go but not able to pass stool. About 400cc yellow-clear urine in lees bag. Understands that plan is to be discharged to [facility] or [facility] and is currently awaiting placement. Denies any questions or concerns at this time. Review of Systems Review of Systems: See HPI Physical Exam Constitutional: + thin A&Ox3 (self, place, president of [place]) at 9:30am Eyes: PERRL, conjunctivae normal, anicteric sclerae ENMT: external ear and nose normal, oropharynx normal Respiratory: normal respiratory effort mild crackles to R lung bases, otherwise clear to auscultation b/l Cardiovascular: Rate/Rhythm: regular rate and regular rhythm soft holosystolic murmur heard in all 4 valve areas, otherwise no murmurs, rubs, or gallops Gastrointestinal (Abdomen): normal bowel sounds, soft, nontender, no hepatosplenomegaly Percussion/Palpation: abdomen soft Musculoskeletal: slow but controlled movements of b/l UE while eating breakfast without assistance Skin: no rashes, warm and dry Neurologic: PERRL, EOMI, accommodation nl, no face palsy, no dysarthria Psychiatric: A+Ox3, euthymic affect Results & Data Results & Data Vital Signs (Past 12 Hours) Vital Signs Temp Pulse Resp BP Pulse Ox O2 Del Method 02/11/24 06:52 36.4 C L 85 16 146/78 H 99 Room Air 02/10/24 20:02 36.8 C 88 16 142/78 H 97 Room Air 02/10/24 20:00 Room Air Resident Activity Tracking Resident Involvement: Resident Care Provided Care Provided: Adult Hospital Medicine (3) Altered mental status Altered mental status type: unspecified Qualified Code(s): R41.82 - Altered m ental status, unspecified (4) Headache Headache chronicity pattern: acute headache Headache type: unspecified Intractability: not intractable Qualified Code(s): R51.9 - Headache, unspecified (5) Dementia Dementia behavioral or psychological symptom: with agitation Dementia severity: unspecified severity Dementia type: unspecified type Qualified Code(s): F03.911 - Unspecified dementia, unspecified severity, with agitation (7) Sjogren's syndrome Sjogren organ or system involvement: unspecified organ involvement Qualified Code(s): M35.00 - Sjogren syndrome, unspecified (8) Hypothyroidism Hypothyroidism type: unspecified Qualified Code(s): E03.9 - Hypothyroidism, unspecified (9) Hypertension Hypertension type: essential hypertension Qualified Code(s): I10 - Essential (primary) hypertension
[2024-02-11 14:24] LABS: Basophils # (auto) 0.03 K/uL (0.00-0.20); Basophils % (auto) 0.4 %; Eosinophils # (auto) 0.64 K/uL (0.00-0.50); Eosinophils % (auto) 9.2 %; Hematocrit (blood only) 25.7 % (37.0-47.0); Hemoglobin 8.5 g/dl (12.0-16.0); Immature Granulocytes # (auto) 0.06 K/uL (0.01-0.20); Immature Granulocytes % (auto) 0.9 %; Lymphocytes # (auto) 2.16 K/uL (1.20-3.40); Mean Corpuscular Hemoglobin 30.6 pg (25.0-34.0); Mean Corpuscular Hgb Conc 33.1 g/dL (32.0-36.0); Mean Corpuscular Volume 92.4 fL (80.0-100.0); Mean Platelet Volume 9.4 fL (9.4-12.4); Monocytes # (auto) 0.72 K/uL (0.11-0.59); Monocytes % (auto) 10.3 %; Neutrophils # (auto) 3.36 K/uL (1.40-6.50); Neutrophils % (auto) 48.2 %; Platelet Count 282 K/uL (130-400); RDW Coefficient of Variation 14.2 % (11.5-14.5); RDW Standard Deviation 48.3 fL (36.4-46.3); Red Blood Count 2.78 M/uL (4.20-5.40); White Blood Count 6.97 K/ul (4.8-10.8)
[2024-02-11 14:45] LABS: BUN Creatinine Ratio 16.7 (10-20); Calcium 8.7 mg/dl (8.6-10.3); Creatinine Clr Calc Pharmacy 22.8 ml/min; Est GFR (African American) 46.4 ml/min; Potassium 4.3 mmol/L (3.5-5.1)
--- NOTE | 2024-02-11 16:48 | Billing Data ---
Date of Service February 11, 2024 Coding Level of Care Code 28965 SUB INP/OBS CARE
--- NOTE | 2024-02-12 07:15 | Hospitalist Progress Note ---
Date of Service February 12, 2024 Assessment & Plan (1) Altered mental status: (2) Transient ischemic attack (TIA): (3) Combative behavior: (4) Headache: (5) Dementia: (6) PATRICIA (acute kidney injury): (7) Sjogren's syndrome: (8) Hypothyroidism: (9) Hypertension: Plan TIA Patient with transient ischemic attack 02/06 - See communication note for further documentation. ASA and Plavix started at that time. Plan to continue DAPT for 3 weeks, then Plavix indefinitely. No signs of stroke on imaging. HbA1c 6.1. LDL 145. Start rosuvastatin 20 mg. OT/PT - rec SNF CM - referral to [facility] Continue DAPT and rosuvastatin Monitor BP Delirium on Dementia Sent to the ED for agitation, confusion, and combative to staff altered from [facility]. Likely hospital acquired delirium vs dehydration related on top of baseline dementia. Agitation no longer present, but continues with disorientation that varies throughout the day. Hearing impairment may also be playing a role in her confusion. risperidone 0.5 mg QHS for . SNF then will likely need PCF vs memory care unit Medically stable for d/c PATRICIA/urinary retention Creatinine 1.25 today-> at baseline Known urinary retention with lees in place. Follows with outpatient urology. Hypertension Antihypertensives intermittently held based on mental status/allowing for permissive HTN. Will restart home meds. amlodipine 5 mg BID, carvedilol 6.25 mg BID 5. Sjogren's syndrome Pt encouraged to drink fluids and maintain hydration Continue cyclosporine eyedrops - Continue systane eye drop - Continue flourometholone eye drop 6. Hypothyroidism Continue levothyroxine Code status: full DVT ppx: on ASA plavix FENGI:PO/ heart healthy diet, minced and moist Dispo: MedSurg, awaiting placement Admission and Anticipated Discharge Date Admission Date: February 03, 2024 Supervising Physician Co-Signing Physician Notes I personally examined the patient and verified carranza points of history and exam, discussed case, and agree with decision making and plan documented by Dr. Rios. Patient resting comfortably in bed today. Reviewed stability of labs and vital signs. Awaiting placement at a local facility. Subjective Pt seen at bedside this morning. No acute complaints. Sitting in chair eating breakfast. Review of Systems Review of Systems: See above Physical Exam Physical Exam: Constitutional: well-appearing, no acute distress HEENT: NCAT, no conjunctival injection CV: regular rhythm, no murmur appreciated, extremities well-perfused, no LE edema Resp: CTABL, no wheezes/rales/rhonchi appreciated, no increased work of breathing MSK: no gross deformities appreciated Skin: warm, dry, no rash appreciated Neuro: alert, oriented, no focal neurologic deficit appreciated Results & Data Results & Data Vital Signs (Past 12 Hours) Vital Signs Temp Pulse Resp BP Pulse Ox O2 Del Method 02/11/24 19:40 Room Air 02/11/24 19:22 36.6 C 93 H 16 137/74 96 Room Air Resident Activity Tracking Resident Involvement: Resident Care Provided Care Provided: Adult Hospital Medicine (1) Altered mental status Altered mental status type: unspecified Qualified Code(s): R41.82 - Altered mental status, unspecified (4) Headache Headache chronicity pattern: acute headache Headache type: unspecified Intractability: not intractable Qualified Code(s): R51.9 - Headache, unspecified (5) Dementia Dementia behavioral or psychological symptom: with agitation Dementia severity: unspecified severity Dementia type: unspecified type Qualified Code(s): F03.911 - Unspecified dementia, unspecified severity, with agitation (7) Sjogren's syndrome Sjogren organ or system involvement: unspecified organ involvement Qualified Code(s): M35.00 - Sjogren syndrome, unspecified (8) Hypothyroidism Hypothyroidism type: unspecified Qualified Code(s): E03.9 - Hypothyroidism, unspecified (9) Hypertension Hypertension type: essential hypertension Qualified Code(s): I10 - Essential (primary) hypertension
[2024-02-12 08:45] LABS: Basophils # (auto) 0.03 K/uL (0.00-0.20); Basophils % (auto) 0.5 %; Bilirubin,Total 0.2 mg/dl (0.2-1.0); Calcium 8.7 mg/dl (8.6-10.3); Eosinophils # (auto) 0.49 K/uL (0.00-0.50); Eosinophils % (auto) 8.7 %; Hematocrit (blood only) 27.8 % (37.0-47.0); Hemoglobin 9.2 g/dl (12.0-16.0); Immature Granulocytes # (auto) 0.11 K/uL (0.01-0.20); Lymphocytes # (auto) 1.74 K/uL (1.20-3.40); Mean Corpuscular Hemoglobin 30.5 pg (25.0-34.0); Mean Corpuscular Hgb Conc 33.1 g/dL (32.0-36.0); Mean Corpuscular Volume 92.1 fL (80.0-100.0); Mean Platelet Volume 9.5 fL (9.4-12.4); Monocytes # (auto) 0.73 K/uL (0.11-0.59); Neutrophils # (auto) 2.51 K/uL (1.40-6.50); Neutrophils % (auto) 44.8 %; Platelet Count 293 K/uL (130-400); Potassium 4.5 mmol/L (3.5-5.1); RDW Coefficient of Variation 14.5 % (11.5-14.5); RDW Standard Deviation 48.9 fL (36.4-46.3); Red Blood Count 3.02 M/uL (4.20-5.40); White Blood Count 5.61 K/ul (4.8-10.8)
[2024-02-12 08:51] LABS: Albumin Globulin Ratio 0.9 (0.9-2); BUN Creatinine Ratio 19.2 (10-20); Creatinine Clr Calc Pharmacy 21.9 ml/min; Est GFR (African American) 44.2 ml/min; Est GFR (Non-African American) 38.1 ml/min; Globulin 3.5 gm/dl (2.5-4.0); Total Protein 6.5 gm/dl (6.0-8.3)
--- NOTE | 2024-02-13 08:39 | Hospitalist Progress Note ---
Date of Service February 13, 2024 Assessment & Plan (1) Altered mental status: (2) Transient ischemic attack (TIA): (3) Combative behavior: (4) Headache: (5) Dementia: (6) PATRICIA (acute kidney injury): (7) Sjogren's syndrome: (8) Hypothyroidism: (9) Hypertension: Plan TIA Patient with transient ischemic attack 02/06 - See communication note for further documentation. ASA and Plavix started at that time. Plan to continue DAPT for 3 weeks, then Plavix indefinitely. No signs of stroke on imaging. HbA1c 6.1. LDL 145. Start rosuvastatin 20 mg. OT/PT - rec SNF CM - referral to [facility] Continue DAPT and rosuvastatin Monitor BP Delirium on Dementia Sent to the ED for agitation, confusion, and combative to staff altered [facility] Likely hospital acquired delirium vs dehydration related on top of baseline dementia. Agitation no longer present, but continues with disorientation that varies throughout the day. Hearing impairment may also be playing a role in her confusion. risperidone 0.5 mg QHS for . SNF then will likely need PCF vs memory care unit Medically stable for d/c PATRICAI/urinary retention Creatinine 1.25 today-> at baseline Known urinary retention with lees in place. Follows with outpatient urology. Hypertension Antihypertensives intermittently held based on mental status/allowing for permissive HTN. Will restart home meds. amlodipine 5 mg BID, carvedilol 6.25 mg BID 5. Sjogren's syndrome Pt encouraged to drink fluids and maintain hydration Continue cyclosporine eyedrops - Continue systane eye drop - Continue flourometholone eye drop 6. Hypothyroidism Continue levothyroxine Code status: full DVT ppx: on ASA plavix FENGI:PO/ heart healthy diet, minced and moist Dispo: MedSurg, awaiting placement Admission and Anticipated Discharge Date Admission Date: February 03, 2024 Supervising Physician Co-Signing Physician Notes I personally examined the patient and verified carranza points of history and exam, discussed case, and agree with decision making and plan documented by Dr. Rios. Patient resting comfortably in bed and awaiting acceptance at facility. Subjective Pt was resting comfortable when I went to see her this morning. Spoke with daughter, Sridevi, updated and answered questions. Review of Systems Review of Systems: See above Physical Exam Physical Exam: Constitutional: well-appearing, no acute distress HEENT: NCAT, no conjunctival injection CV: extremities well-perfused Resp: no increased work of breathing MSK: no gross deformities appreciated Skin: warm, dry, no rash appreciated Neuro: alert, oriented, no focal neurologic deficit appreciated Results & Data Results & Data Vital Signs (Past 12 Hours) Vital Signs Temp Pulse Resp BP Pulse Ox O2 Del Method 02/13/24 07:40 36.6 C 66 16 147/61 H 98 Room Air 02/12/24 22:57 36.7 C 89 14 131/67 98 Room Air Resident Activity Tracking Resident Involvement: Resident Care Provided Care Provided: Adult Hospital Medicine (1) Altered mental status Altered mental status type: unspecified Qualified Code(s): R41.82 - Altered mental status, unspecified (4) Headache Headache chronicity pattern: acute headache Headache type: unspecified Intractability: not intractable Qualified Code(s): R51.9 - Headache, unspecified (5) Dementia Dementia behavioral or psychological symptom: with agitation Dementia severity: unspecified severity Dementia type: unspecified type Qualified Code(s): F03.911 - Unspecified dementia, unspecified severity, with agitation (7) Sjogren's syndrome Sjogren organ or system involvement: unspecified organ involvement Qualified Code(s): M35.00 - Sjogren syndrome, unspecified (8) Hypothyroidism Hypothyroidism type: unspecified Qualified Code(s): E03.9 - Hypothyroidism, unspecified (9) Hypertension Hypertension type: essential hypertension Qualified Code(s): I10 - Essential (primary) hypertension
[2024-02-13 10:50] LABS: Hematocrit (blood only) 28.9 % (37.0-47.0); Hemoglobin 9.5 g/dl (12.0-16.0); Mean Corpuscular Hemoglobin 30.5 pg (25.0-34.0); Mean Corpuscular Hgb Conc 32.9 g/dL (32.0-36.0); Mean Corpuscular Volume 92.9 fL (80.0-100.0); Mean Platelet Volume 9.7 fL (9.4-12.4); Platelet Count 325 K/uL (130-400); RDW Coefficient of Variation 14.3 % (11.5-14.5); RDW Standard Deviation 48.4 fL (36.4-46.3); Red Blood Count 3.11 M/uL (4.20-5.40); White Blood Count 7.02 K/ul (4.8-10.8)
[2024-02-13 11:11] LABS: Calcium 8.8 mg/dl (8.6-10.3); Creatinine Clr Calc Pharmacy 21.7 ml/min; Est GFR (African American) 43.7 ml/min; Est GFR (Non-African American) 37.7 ml/min; Potassium 4.3 mmol/L (3.5-5.1)
[2024-02-13] MEDS: MELATONIN 3 MG TAB PO SCH (20:17)
--- NOTE | 2024-02-14 08:15 | Hospitalist Progress Note ---
Date of Service February 14, 2024 Assessment & Plan (1) Altered mental status: (2) Transient ischemic attack (TIA): (3) Combative behavior: (4) Headache: (5) Dementia: (6) PATRICIA (acute kidney injury): (7) Sjogren's syndrome: (8) Hypothyroidism: (9) Hypertension: Plan TIA Patient with transient ischemic attack 02/06 - See communication note for further documentation. ASA and Plavix started at that time. Plan to continue DAPT for 3 weeks, then Plavix indefinitely. No signs of stroke on imaging. HbA1c 6.1. LDL 145. Start rosuvastatin 20 mg. OT/PT - rec SNF CM - referral to [facility] Continue DAPT and rosuvastatin-> tolerating well Monitor BP Delirium on Dementia Sent to the ED for agitation, confusion, and combative to staff altered from baseline dementia at [facility]. Likely hospital acquired delirium vs dehydration related on top of baseline dementia. Agitation no longer present, but continues with disorientation that varies throughout the day. Hearing impairment may also be playing a role in her confusion. risperidone 0.5 mg QHS for . SNF then will likely need PCF vs memory care unit Medically stable for d/c PATRICIA/urinary retention Creatinine 1.25 today-> at baseline Known urinary retention with lees in place. Follows with outpatient urology. Hypertension Antihypertensives intermittently held based on mental status/allowing for per missive HTN. Will restart home meds. amlodipine 5 mg BID, carvedilol 6.25 mg BID Sjogren's syndrome Pt encouraged to drink fluids and maintain hydration Continue cyclosporine eyedrops - Continue systane eye drop - Continue flourometholone eye drop Hypothyroidism Continue levothyroxine Code status: full DVT ppx: on ASA plavix FENGI:PO/ heart healthy diet, minced and moist Dispo: MedSurg, awaiting placement Admission and Anticipated Discharge Date Admission Date: February 03, 2024 Supervising Physician Co-Signing Physician Notes I personally examined the patient and verified carranza points of history and exam, discussed case, and agree with decision making and plan documented by Dr. Rios. Patient seated comfortably and eating lunch on exam today, she denied any complaints. Anticipate transfer to [facility] tomorrow. Subjective Vera was awake and alert this morning. Calm, pleasant, eating breakfast. No complaints. Review of Systems Review of Systems: See above Physical Exam Physical Exam: Constitutional: well-appearing, no acute distress HEENT: NCAT, no conjunctival injection CV: regular rhythm, no murmur appreciated, extremities well-perfused, no LE edema Resp: CTABL, no wheezes/rales/rhonchi appreciated, no increased work of breathing MSK: no gross deformities appreciated Skin: warm, dry, no rash appreciated Neuro: alert, oriented, no focal neurologic deficit appreciated Results & Data Results & Data Vital Signs (Past 12 Hours) Vital Signs Temp Pulse Resp BP Pulse Ox O2 Del Method 02/14/24 08:09 36.6 C 96 H 15 167/67 H 99 Room Air Resident Activity Tracking Resident Involvement: Resident Care Provided Care Provided: Adult Hospital Medicine (1) Altered mental status Altered mental status type: unspecified Qualified Code(s): R41.82 - Altered mental status, unspecified (4) Headache Headache chronicity pattern: acute headache Headache type: unspecified Intractability: not intractable Qualified Code(s): R51.9 - Headache, unspecified (5) Dementia Dementia behavioral or psychological symptom: with agitation Dementia severity: unspecified severity Dementia type: unspecified type Qualified Code(s): F03.911 - Unspecified dementia, unspecified severity, with agitation (7) Sjogren's syndrome Sjogren organ or system involvement: unspecified organ involvement Qualified Code(s): M35.00 - Sjogren syndrome, unspecified (8) Hypothyroidism Hypothyroidism type: unspecified Qualified Code(s): E03.9 - Hypothyroidism, unspecified (9) Hypertension Hypertension type: essential hypertension Qualified Code(s): I10 - Essential (primary) hypertension
[2024-02-14 19:21] VITALS: RESP 18
[2024-02-15 07:11] VITALS: BP 133/72; TEMP 97.7; O2SAT 93
--- NOTE | 2024-02-15 09:45 | Discharge Summary ---
Date of Service February 15, 2024 Principal Diagnosis TIA Discharge Exam Constitutional: well-appearing, no acute distress HEENT: NCAT, no conjunctival injection CV:extremities well-perfused Resp: no increased work of breathing MSK: no gross deformities appreciated Skin: warm, dry, no rash appreciated Neuro: alert, oriented, no focal neurologic deficit appreciated Discharge Data Allergies Allergy/AdvReac Type Severity Reaction Status Date / Time Sulfa (Sulfonamide Allergy Intermediate Rash Verified 02/03/24 00:45 Antibiotics) adhesive Allergy Mild rash Verified 02/03/24 00:45 enalaprilat [From Vasotec] Allergy Unknown Unknown Verified 02/03/24 00:45 atorvastatin AdvReac Severe Unconscious Verified 02/03/24 00:45 Consultations 02/02/24 22:15 ED Decision to Admit Stat Ordered Studies 02/02/24 19:22 CT head/brain wo con Stat 02/04/24 10:10 MR brain wo con Routine 02/06/24 11:52 CT head/brain wo con Stat 02/06/24 11:55 CT angio head w con Stat CT angio neck with con Stat 02/06/24 12:58 MR brain wo con Routine Hospital Course (1) Altered mental status: (2) Transient ischemic attack (TIA): (3) Combative behavior: (4) Headache: (5) Dementia: (6) PATRICIA (acute kidney injury): (7) Sjogren's syndrome: (8) Hypothyroidism: (9) Hypertension: Plan TIA Patient with transient ischemic attack 02/06 - See communication note for further documentation. ASA and Plavix started at that time. Plan to continue DAPT for 3 weeks, then Plavix indefinitely. DAPT started on 02/06, so 3 weeks would be 02/27. No signs of stroke on imaging. HbA1c 6.1. LDL 145. Start rosuvastatin 20 mg. OT/PT - rec SNF CM - referral to [facility] Continue DAPT and rosuvastatin-> tolerating well Monitor BP Delirium on Dementia Sent to the ED for agitation, confusion, and combative to staff altered from baseline dementia at personal skilled nursing. Likely hospital acquired delirium vs dehydration related on top of baseline dementia. Agitation no longer present, but continues with disorientation that varies throughout the day. Hearing impairment may also be playing a role in her confusion. risperidone 0.5 mg QHS for sundowning. SNF then will likely need PCF vs memory care unit Medically stable for d/c PATRICIA/urinary retention Creatinine 1.25 today-> at baseline Known urinary retention with lees in place. Follows with outpatient urology. In the process of working up for urinary retention, will need f/u with urology Hypertension Antihypertensives intermittently held based on mental status/allowing for permissive HTN. Will restart home meds. amlodipine 5 mg BID, carvedilol 6.25 mg BID Sjogren's syndrome Pt encouraged to drink fluids and maintain hydration Continue cyclosporine eyedrops - Continue systane eye drop - Continue flourometholone eye drop Hypothyroidism Continue levothyroxine Total Time Total Time Spent Total Time Spent (In Minutes): See attending attestation Discharge Plan Discharge Items Patient Disposition: Transfer Long Term Fac Reason For Visit: ALTERED LOC Discharge Diagnosis: Altered mental status Activity: Resume your previous activity Activity Comment: Continue with home health therapy Non-emergency contact: Primary Care Provider Call non-emergency contact if: you have any medication questions and your symptoms worsen Follow-up/Referrals: Deepti Francois CRNP [Primary Care Provider] - Diet: Regular Diet Texture: Mechanical soft (ground) Diet Comment: minced and moist Addtl Attending Provider Instructions: TIA Patient with transient ischemic attack 02/06 - See communication note for further documentation. ASA and Plavix started at that time. Plan to continue DAPT for 3 weeks, then Plavix indefinitely. DAPT started on 02/06, so 3 weeks would be 02/27. No signs of stroke on imaging. HbA1c 6.1. LDL 145. Start rosuvastatin 20 mg. OT/PT - rec SNF CM - referral to [facility] Continue DAPT and rosuvastatin-> tolerating well Monitor BP Delirium on Dementia Sent to the ED for agitation, confusion, and combative to staff altered from baseline dementia at personal skilled nursing. Likely hospital acquired delirium vs dehydration related on top of baseline dementia. Agitation no longer present, but continues with disorientation that varies throughout the day. Hearing impairment may also be playing a role in her confusion. risperidone 0.5 mg QHS for . SNF then will likely need PCF vs memory care unit Medically stable for d/c PATRICIA/urinary retention Creatinine 1.25 today-> at baseline Known urinary retention with lees in place. Follows with outpatient urology. Hypertension Antihypertensives intermittently held based on mental status/allowing for permissive HTN. Will restart home meds. amlodipine 5 mg BID, carvedilol 6.25 mg BID Sjogren's syndrome Pt encouraged to drink fluids and maintain hydration Continue cyclosporine eyedrops - Continue systane eye drop - Continue flourometholone eye drop Hypothyroidism Continue levothyroxine Pending Studies at Discharge: No Stand-Alone Forms: [facility] [place], Smoking Cessation Skilled Items Patient informed of condition?: Yes DNR: No Discharge Level of Care: Skilled Communicable Disease: No Discharge Prognosis: Stable Lines: None Urinary Catheter: Yes Medications and DC Order Prescriptions: New clopidogrel 75 mg Tablet 75 mg PO QAM 30 Days Qty: 30 0RF rosuvastatin 20 mg Tablet 20 mg PO QAM 30 Days Qty: 30 0RF clopidogrel 75 mg tablet 75 mg PO DAILY Qty: 30 0RF rosuvastatin 20 mg tablet 20 mg PO DAILY Qty: 30 0RF Continued buspirone 5 mg tablet 10 mg PO TID carvedilol 6.25 mg tablet 6.25 mg PO BID sodium chloride 1 gram Tablet 1,000 mg PO DAILY lidocaine 4 % Cream 1 applic TOPICAL DIRECTED PRN (Reason: Pain) amlodipine 5 mg tablet 5 mg PO BID aspirin 81 mg Tablet,Delayed Release (Dr/Ec) 81 mg PO DAILY acetaminophen [Tylenol Extra Strength] 500 mg Tablet 1,000 mg PO HS acetaminophen [Tylenol Extra Strength] 500 mg Tablet 1,000 mg PO Q6H PRN (Reason: Pain) famotidine 20 mg tablet 20 mg PO BID levothyroxine 125 mcg tablet 125 mcg PO QAM fluorometholone 0.1 % drops,suspension 1 drp OPB QID protein Powder 1 ea PO DAILY Rx Instructions: mix with milk furosemide 20 mg tablet 20 mg PO DAILY ondansetron 4 mg tablet,disintegrating 4 mg translingual Q6 PRN (Reason: .nausea/vomiting) docusate sodium 100 mg Tablet 100 mg PO DAILY PRN (Reason: Constipation) risperidone 0.5 mg tablet 0.5 mg PO QPM cyclosporine 0.05 % dropperette 1 drp OPB AMHS duloxetine 20 mg capsule,delayed release(DR/EC) 20 mg PO DAILY diclofenac sodium 1 % Gel 0 g TOPICAL DAILY PRN (Reason: Pain) Rx Instructions: Right shoulder melatonin 5 mg Tablet 5 mg PO HS cholecalciferol (vitamin D3) [Vitamin D3] 50 mcg (2,000 unit) Capsule 50 mcg PO DAILY Centrum Silver Women 8 mg iron-400 mcg-50 mcg Tablet 1 tab PO DAILY OcuSoft Lid Scrub Pads, Medicated 1 pad TOPICAL DAILY PRN (Reason: .eyelid hygeine) mirabegron [Myrbetriq] 25 mg tablet extended release 24 hr 25 mg PO DAILY PreserVision AREDS-2 250-90-40-1 mg Capsule 1 tab PO BID Systane Complete PF 0.6 % drops 1 drp OPHTHALMIC (EYE) QID Fish Oil Softgel 1,200 mg PO DAILY Discontinued cephalexin 500 mg capsule 500 mg PO .BID FOR 5 DAYS Rx Instructions: STARTED 01/31/2024 @1999 Discharge Orders: Discharge Order (Routine); Ordered 02/15/24 Ordered By: Marleni Rios Admission Data Admit Date/Time: 02/03/24 17:54 Attending Provider: Lizzy Francois Admit Provider: Dawit Stephens Primary Care Provider: Deepti Francois Other Providers: [facility]; Christian Alba; Jaden Alanis [facility] Other Interventions: Discharge Summary Assessment (RN) Last Done: 02/15/24 13:48 Supervising Physician Co-Signing Physician Notes I personally examined the patient and verified carranza points of history and exam, discussed case, and agree with decision making and plan documented by Dr. Rios. Patient is an 89-year-old female with past medical history pertinent for dementia, hypertension, Sjogren syndrome, hypothyroidism, on admission for altered mental status and found to have a TIA. Patient will remain on DAPT for 3 weeks then Plavix and definitely following TIA. Prior to discharge, patient had no new neurological events, she was discharged to [place] care. Resident Activity Tracking Resident Involvement: Resident Care Provided Care Provided: Adult Hospital Medicine
[2024-02-15 13:50] VITALS: PULSE 90
== END 2024-02-15 14:37 | DRG 641 ==
LOC: ED 19:15 → EDINP 19:15 → SUATTDRO 23:53 → EDINP 02-03 01:26 → 2S 02-03 14:18 → SUATTDRO 02-03 17:54 → 3N 02-05 18:35 → 1E 02-06 13:30 → 3E 02-07 16:09
DX: Z91.048 Other nonmedicinal substance allergy status; Z88.2 Allergy status to sulfonamides; Z79.890 Hormone replacement therapy; Z96.0 Presence of urogenital implants; M35.00 Sjogren syndrome, unspecified; Z91.81 History of falling; G45.9 Transient cerebral ischemic attack, unspecified; F05 Delirium due to known physiological condition; Y92.230 Patient room in hospital as the place of occurrence of the external cause; R51.9 Headache, unspecified; E86.0 Dehydration; Z88.8 Allergy status to other drugs, medicaments and biological substances; N17.9 Acute kidney failure, unspecified; I12.9 Hypertensive chronic kidney disease with stage 1 through stage 4 chronic kidney disease, or unspecified chronic kidney disease; H91.90 Unspecified hearing loss, unspecified ear; J84.9 Interstitial pulmonary disease, unspecified; Z79.899 Other long term (current) drug therapy; F03.90 Unspecified dementia, unspecified severity, without behavioral disturbance, psychotic disturbance, mood disturbance, and anxiety; Z87.440 Personal history of urinary (tract) infections; I67.2 Cerebral atherosclerosis; N18.9 Chronic kidney disease, unspecified; Z79.82 Long term (current) use of aspirin; R33.9 Retention of urine, unspecified; Y95 Nosocomial condition; E03.9 Hypothyroidism, unspecified

== ENCOUNTER 2024-03-11 16:56 | Inpatient (IN) ==
--- NOTE | 2024-03-11 17:17 | Emergency Department Note ---
Impression & Plan Fall from standing, Acute UTI (urinary tract infection), Closed fracture of neck of left femur, Closed fracture of right pelvis, Elevated lactic acid level, Acute hyponatremia ED Provider Note HISTORY OF PRESENT ILLNESS: Patient is an 89-year-old female presenting with altered mental status. Daughter provides most of history, as patient is significantly disoriented. Daughter reports that she last saw the patient on 03/09/2024 and she was at her normal baseline mental status. Daughter reports that she was told yesterday that the patient had a fall 2 nights ago. She had struck the back of her head. She is on aspirin and Plavix. Daughter went to visit the patient today at [place] and found her to be very confused and given her recent fall, grew concerned and brought her to the emergency department. Daughter reports that patient was complaining of some right leg pain to her. Patient denies any complaints on arrival to the ER, but she is just yelling at staff. Daughter reports that the patient recently had surgery for her urethra on 03/06/2024. Reports that she was on an antibiotic prior to the surgery secondary to urinary tract infection, but the patient is not currently on any antibiotics. Daughter reports that the patient normally ambulates with a walker at baseline. However, when she went to visit the patient today at [place], the patient was seated in a wheelchair wheeling herself around, which the daughter reports is abnormal for her. ROS: as above PHYSICAL EXAM: Constitutional: Patient appears in normal sinus distress. HENT: Head: Normocephalic. Hematoma to posterior scalp. Eyes: EOMI, PERRL Mouth/Throat: Mucous membranes moist. Neck: Trachea midline. Neck supple. No midline cervical spine tenderness to palpation. Cardiovascular: RRR, No murmurs, rubs or gallops. Intact distal pulses. Pulmonary/Chest: No respiratory distress. Breath sounds clear and equal bilaterally. No wheezes or rales. Abdominal: Abdomen soft, no tenderness, rebound or guarding. Musculoskeletal: Left lower extremity is shortened and externally rotated. Skin: Warm and dry. No rash, erythema, pallor or cyanosis Neurological: Alert, but does not answer any questions. She is just yelling at staff. CN II-XII grossly intact, moving all extremities equally and fully. MDM: - Vitals signs showed hypertension and tachycardia - Patient alerted as a trauma on my assessment, given that she fell and is on Plavix. ABCs intact. - CXR negative for pneumothorax, per my interpretation - Xray pelvis showed left femoral neck fracture, per my interpretation. - History obtained via patient's daughter, given patient's confusion. History as above. - Chronic conditions affecting care: TIA; CKD; HTN; HLD; GERD; hypothyroidism - Differential diagnoses include, but are not limited to: Skull fracture; intracranial hemorrhage; hip fracture; pneumothorax; pneumonia; UTI - Order placed for continuous cardiac monitoring. At this time, monitor showed rate of 92 bpm with normal sinus rhythm, per my interpretation. - External medical records reviewed. Urology on-call note dated 03/09/2024 was reviewed. Patient and her delirium has removed her catheter recently, but it has been replaced at her facility. - EKG interpreted by myself showed normal sinus rhythm. Rate 91 bpm. QT 392. No acute ischemic changes. However, patient has significant artifact secondary to her movement. - Laboratory workup interpreted by myself showed leukocytosis (WBC 11.00); anemia (Hgb 8.9); normal PT/INR; hyponatremia (Na 128); elevated creatinine (Cr 1.70); elevated lactate (2.7); normal AST/ALT; normal troponin; normal TSH - UA shows concerns for possible infection. Patient does have a catheter in place, so we we will treat empirically for a UTI. Given 2 g IV Rocephin. - Viral respiratory panel negative - CT head wo contrast negative for acute intracranial hemorrhage. Noted to have posterior scalp swelling on the left. - CT cervical spine wo contrast negative for acute injury. - CT pelvis and CT left hip wo showed displaced subcapital left femoral neck fracture without dislocation. Noted to have small nondisplaced right sacral radha fracture as well. - Patient given 1L NS in ER. - Discussed case with orthopedic surgeon on-call, Dr. Marrero, at [phone]. He recommends admission to medicine and will plan to fix hip tomorrow when medically cleared. - Discussion was had with shelter case manager about patient's case and need for admission - Hospitalist, Dr. Santillan, consulted for admission - Patient admitted to [facility] service for further evaluation and management. I have personally spent 43 minutes of critical care time in the direct management of this patient. This includes bedside care, interpretation of diagnostic studies, and testing, discussion with consultants, patient, and family members, and other required patient management activities. This 43 minutes is in excess of all separately billable procedures. ASSESSMENT AND PLAN: Diagnosis: Fall from standing; acute UTI; elevated lactic acid level; acute hyponatremia; left femoral neck fracture; right sacral radha fracture Plan: Admit Past Med/Surg History Problem List (Updated 03/11/24 @ 19:09 by Azul Rivas MD) Acute hyponatremia (Acute) Elevated lactic acid level (Acute) Closed fracture of right pelvis (Acute) Closed fracture of neck of left femur (Acute) Acute UTI (urinary tract infection) (Acute) Fall from standing (Acute) Weakness (Acute) Hypoxia Recent urinary tract infection (Acute) Combative behavior (Acute) Altered mental status (Acute) Headache (Acute) Sundowning Dementia Acute respiratory failure with hypoxia Aspiration into airway Acute UTI (Acute) PATRICIA (acute kidney injury) (Acute) Sepsis UTI (urinary tract infection), uncomplicated Anxiety Forgetfulness Orthostatic hypotension dysautonomic syndrome Diarrhea Hyponatremia (Acute) Anemia Urinary incontinence Ambulatory dysfunction Hearing loss (Acute) General weakness Weight loss Poor balance Poor eyesight Right shoulder pain Tinea corporis GERD (gastroesophageal reflux disease) Pessary maintenance Dysphagia Peripheral edema Rectocele Insomnia Cystocele Recurrent falls Situational anxiety Pulmonary nodule (Chronic) Monoclonal gammopathy of undetermined significance (Chronic) Medical History (Updated 03/11/24 @ 19:09 by Azul Rivas MD) TIA (transient ischemic attack) unspecified UTI (urinary tract infection) site not specified Localized edema Localized enlarged lymph nodes Nonrheumatic aortic (valve) stenosis Colon polyp Acute kidney failure Hypertensive chronic kidney disease with stage 1 through stage 4 chronic kidney disease, or unspecified chronic kidney disease Urinary retention Unspecified dementia, unspecified severity, without behavioral disturbance, psychotic disturbance, mood disturbance, and anxiety Delirium due to known physiological condition Transient ischemic attack (TIA) Anemia Hypertension Hypothyroidism Sjogren's syndrome Sprain of left ankle Sprain of left foot Hypertensive urgency Constipation Fall Hypomagnesemia Right elbow pain Dermatitis Neuropathy Left hand pain Cervical muscle strain Peripheral edema Insomnia Sensorineural hearing loss (SNHL) of both ears Memory changes Increased urinary frequency Aortic valve sclerosis Arteriosclerosis of carotid artery Benign neoplasm of colon Cervical lymphadenopathy Chronic hoarseness Mixed hyperlipidemia Osteoporosis Rotator cuff tear, left Unsteady gait Vocal cord paralysis Trigeminal neuralgia right Spinal stenosis Osteoarthritis IBS (irritable bowel syndrome) GERD (gastroesophageal reflux disease) Macular degeneration Claustrophobia Cardiac murmur Hyperlipidemia HX OF Surgical History Hx of arthroscopy of shoulder 2019, left History of lumpectomy History of hysterectomy History of bladder surgery BLADDER TACK History of total abdominal hysterectomy and bilateral salpingo-oophorectomy History of colonoscopy History of throat surgery THURNWALDT CYST BENIGN History of tooth extraction History of tonsillectomy History of adenoidectomy Family History Son Family history of diabetes mellitus Father Cancer Sister Cancer Breast cancer Heart disease H/O heart artery stent Mother Myocardial infarction Grandmother AAA (abdominal aortic aneurysm) Myocardial infarction Denies family history of Ovarian cancer Prostate cancer Colorectal cancer Social History Smoking Status: Never smoker Preferred Language: Unknown Communication Ability: Unknown Communication Ability Comment: hard of hearing Visual Impairment: Limited Hearing Ability: Use of Hearing Aid Aircraft Magneto Mechanic Required: No Beliefs That Will Affect Care: Lutheran marital status: / Current Living Situation: Residential Current Living Situation Comment: [facility] current occupational status: retired How many Children do You have: 3 Feels Safe at Home: Yes Childhood Exposure to Second-Hand Smoke: No Diet: Soft caffeine: Yes during the past year weight has: remained stable Dental Care, Regularly: No Physical Activity Frequency: Does not Exercise Seatbelt Use: always Sunscreen Use: Yes Assistive Devices: Denture - Upper, Denture - Lower, Hearing Aid - Left and Wheelchair Allergies Allergies Allergy/AdvReac Type Severity Reaction Status Date / Time Sulfa (Sulfonamide Allergy Intermediate Rash Verified 03/06/24 08:45 Antibiotics) adhesive Allergy Mild rash Verified 03/06/24 08:45 enalaprilat [From Vasotec] Allergy Unknown Unknown Verified 03/06/24 08:45 atorvastatin AdvReac Severe Unconscious Verified 03/06/24 08:45 Home Meds Home Medications Medication Instructions Recorded Confirmed acetaminophen 500 mg tablet 1,000 mg PO HS 02/03/24 03/11/24 (Tylenol Extra Strength) amlodipine 5 mg tablet 5 mg PO BID 02/03/24 03/11/24 carvedilol 6.25 mg tablet 6.25 mg PO BID 02/03/24 03/11/24 cholecalciferol (vitamin D3) 50 50 mcg PO QAM 02/03/24 03/11/24 mcg (2,000 unit) capsule (Vitamin D3) cyclosporine 0.05 % eye drops in a 1 drp OPB BID 02/03/24 03/11/24 dropperette duloxetine 20 mg capsule,delayed 20 mg PO QAM 02/03/24 03/11/24 release famotidine 20 mg tablet 20 mg PO BID 02/03/24 03/11/24 fluorometholone 0.1 % eye 1 drp OPB QID 02/03/24 03/11/24 drops,suspension furosemide 20 mg tablet 20 mg PO QAM 02/03/24 03/11/24 levothyroxine 125 mcg tablet 125 mcg PO QAM 02/03/24 03/11/24 melatonin 5 mg tablet 5 mg PO HS 02/03/24 03/11/24 risperidone 0.5 mg tablet 0.5 mg PO HS 02/03/24 03/11/24 vit C 250 mg-vit E 90 mg-zinc 40 1 tab PO BID 02/03/24 03/11/24 mg-copper 1 [id number] capsule (PreserVision AREDS-2) acetaminophen 325 mg tablet 650 mg PO Q6 PRN Fever Or Pain 02/28/24 03/11/24 multivitamin 1 tab PO QAM 02/28/24 03/11/24 omega 1-nqd-rru-fish oil 1,200 mg 1 cap PO QAM 02/28/24 03/11/24 (144 mg-216 mg) capsule (Fish Oil) rosuvastatin 20 mg tablet 20 mg PO HS 02/28/24 03/11/24 buspirone 10 mg tablet 10 mg PO TID 03/06/24 03/11/24 sodium chloride 1,000 mg soluble 1,000 mg PO DAILY 03/06/24 03/11/24 tablet peg 400 0.4 %-propylene glycol 1 drp OPB QID 03/11/24 03/11/24 (PF) 0.3 % eye drops (Systane Ultra (PF)) Previous Rx's Medication Instructions Recorded clopidogrel 75 mg tablet 75 mg PO QAM 30 days #30 tabs 02/15/24 Results & Data (ED) Vital Signs Vital Signs - 24 hr 03/11/24 16:57 03/11/24 17:17 03/11/24 17:17 Temperature 36.5 C 36.8 C Temperature Source Temporal Artery Scan Oral Pulse Rate 91 H 89 Pulse Rate [Left Finger] 86 Respiratory Rate 20 18 20 Respiratory Effort / Characteristics Non-Labored Spontaneous Non-Labored Spontaneous Respiratory Depth Normal Normal Respiratory Pattern Regular Blood Pressure 147/72 H 157/96 H Blood Pressure [Right Arm] 157/96 H Blood Pressure Mean 97 Blood Pressure Mean [Right Arm] 116 Blood Pressure Position [Right Arm] Sitting Pulse Oximetry 97 96 98 Oxygen Delivery Method Room Air Room Air Room Air Sepsis Recent Fever Within 48 Hours No Sepsis New/Unexplained Change in Mental Status No Sepsis Action Taken by Nursing No Action Required 03/11/24 17:51 03/11/24 18:00 03/11/24 18:03 Temperature Temperature Source Pulse Rate 84 89 Pulse Rate [Left Finger] 95 H Respiratory Rate 20 20 Respiratory Effort / Characteristics Respiratory Depth Respiratory Pattern Blood Pressure 118/74 Blood Pressure [Right Arm] 156/78 H Blood Pressure Mean 88 Blood Pressure Mean [Right Arm] 104 Blood Pressure Position [Right Arm] Lying Pulse Oximetry 96 94 Oxygen Delivery Method Room Air Room Air Sepsis Recent Fever Within 48 Hours Sepsis New/Unexplained Change in Mental Status Sepsis Action Taken by Nursing 03/11/24 18:10 03/11/24 18:21 03/11/24 18:30 Temperature Temperature Source Pulse Rate 114 H Pulse Rate [Left Finger] Respiratory Rate 18 Respiratory Effort / Characteristics Respiratory Depth Respiratory Pattern Blood Pressure 151/67 H 142/80 H Blood Pressure [Right Arm] Blood Pressure Mean 95 105 Blood Pressure Mean [Right Arm] Blood Pressure Position [Right Arm] Pulse Oximetry 93 Oxygen Delivery Method Room Air Sepsis Recent Fever Within 48 Hours Sepsis New/Unexplained Change in Mental Status Sepsis Action Taken by Nursing 03/11/24 18:42 Temperature Temperature Source Pulse Rate 96 H Pulse Rate [Left Finger] Respiratory Rate 18 Respiratory Effort / Characteristics Respiratory Depth Respiratory Pattern Blood Pressure Blood Pressure [Right Arm] Blood Pressure Mean Blood Pressure Mean [Right Arm] Blood Pressure Position [Right Arm] Pulse Oximetry 93 Oxygen Delivery Method Room Air Sepsis Recent Fever Within 48 Hours Sepsis New/Unexplained Change in Mental Status Sepsis Action Taken by Nursing Laboratory Data 03/11/24 17:20 03/11/24 17:20 Lab Results 03/11/24 03/11/24 03/11/24 Range/Units 17:17 17:20 18:00 WBC 11.00 H (4.8-10.8) K/ul RBC 2.90 L (4.20-5.40) M/uL Hgb 8.9 L (12.0-16.0) g/dl Hct 26.6 L (37.0-47.0) % MCV 91.7 (80.0-100.0) fL MCH 30.7 (25.0-34.0) pg MCHC 33.5 (32.0-36.0) g/dL RDW Std Deviation 45.8 (36.4-46.3) fL RDW Coeff of [place] 13.6 (11.5-14.5) % Plt Count 247 (130-400) K/uL MPV 9.9 (9.4-12.4) fL Immature Gran % (Auto) 0.5 % Neut % (Auto) 80.7 % Lymph % (Auto) 9.8 % [place] % (Auto) 8.5 % Eos % (Auto) 0.3 % Baso % (Auto) 0.2 % Neut # (Auto) 8.88 H (1.40-6.50) K/uL Lymph # (Auto) 1.08 L (1.20-3.40) K/uL [place] # (Auto) 0.94 H (0.11-0.59) K/uL Eos # (Auto) 0.03 (0.00-0.50) K/uL Baso # (Auto) 0.02 (0.00-0.20) K/uL Immature Gran # (Auto) 0.05 (0.01-0.20) K/uL PT 10.4 (9.0-12.0) Seconds INR 1.0 (0.9-1.1) Sodium 128 L (136-145) mmol/L Potassium 4.3 (3.5-5.1) mmol/L Chloride 92 L (98-107) mmol/L Carbon Dioxide 25 (21-32) mmol/L Anion Gap 11 (3-11) BUN 45 H (6-23) mg/dl Creatinine 1.70 H (0.6-1.2) mg/dl Est Cr Clr Drug Dosing 16.1 ml/min Est GFR ( Amer) 30.5 ml/min Est GFR (Non-Af Amer) 26.3 ml/min BUN/Creatinine Ratio 26.5 H (10-20) Glucose 150 H (70-99(Fasting)) mg/dl Lactate 2.7 H* (0.4-2.0) mmol/L Calcium 9.3 (8.6-10.3) mg/dl Magnesium 2.1 (1.7-2.4) mg/dl Total Bilirubin 0.4 (0.2-1.0) mg/dl AST 27 (13-39) U/L ALT 14 (7-52) U/L Alkaline Phosphatase 109 H (34-104) U/L Troponin I High Sens 11.5 (0-14) pg/ml Total Protein 8.1 (6.0-8.3) gm/dl Albumin 3.8 (3.4-5.0) gm/dl Globulin 4.3 H (2.5-4.0) gm/dl Albumin/Globulin Ratio 0.9 (0.9-2) TSH 0.449 (0.300-4.500) uIu/ml Urine Color Yellow Urine Appearance Cloudy A (Clear) Urine pH 6.0 (4.5-7.5) Ur Specific [place] 1.020 (1.000-1.030) Urine Protein 4+ H (Negative) Urine Glucose (UA) Negative (Negative) Urine Ketones Negative (Negative) Urine Blood 2+ H (Negative) Urine Nitrite Negative (Negative) Urine Bilirubin Negative (Negative) Urine Urobilinogen Negative (Negative) Ur Leukocyte Esterase 2+ H (Negative) Urine WBC (Auto) 11-20 H (0-5) /hpf Urine RBC (Auto) >20 H (0-2) /hpf U Hyaline Cast (Auto) >20 H (0-2) /lpf U Epithel Cells (Auto) 3-5 H (0-2) /hpf Urine Bacteria (Auto) None Seen (None Seen) Adenovirus (PCR) Not Detected (NotDetected) B. pertussis DNA (PCR) Not Detected (NotDetected) B.parapertussis DNA PCR Not Detected (NotDetected) C. pneumoniae DNA (PCR) Not Detected (NotDetected) Coronavirus OC43 (PCR) Not Detected (NotDetected) Coronavirus HKU1 (PCR) Not Detected (NotDetected) Coronavirus 229E (PCR) Not Detected (NotDetected) SARS-CoV-2 (PCR) Not Detected (NotDetected) Coronavirus NL63 (PCR) Not Detected (NotDetected) Human Metapneumovir PCR Not Detected (NotDetected) Influenza Type A (PCR) Not Detected (NotDetected) Influenza Type B (PCR) Not Detected (NotDetected) M. pneumoniae (PCR) Not Detected (NotDetected) Parainfluenza 1 (PCR) Not Detected (NotDetected) Parainfluenza 2 (PCR) Not Detected (NotDetected) Parainfluenza 3 (PCR) Not Detected (NotDetected) Parainfluenza 4 (PCR) Not Detected (NotDetected) RSV (PCR) Not Detected (NotDetected) Entero/Rhino (PCR) Not Detected (NotDetected) Administered Medications Sodium Chloride (Nss) 1,000 mls @ 999 mls/hr IV .Q1H1M ONE Stop: 03/11/24 19:13 Last Admin: 03/11/24 18:15 Dose: 999 mls/hr Documented By: [facility] Imaging Data Radiologist's Impression: Cervical Spine CT 03/11/24 17:[address] DOSE: 972.93 mGy.cm HISTORY: altered mental status s/p fall TECHNIQUE: Multiaxial CT images of the cervical spine were performed and reformatted in the sagittal and coronal plane without the use of contrast. A dose lowering technique was utilized adhering to the principles of ALARA. COMPARISON: Cervical spine CT 08/17/2022. FINDINGS: No fractures. No subluxation. Prevertebral soft tissues and the C1-C2 interval are intact. No pneumothorax. Mild chronic anterior wedging at T1, unchanged IMPRESSION: No fractures within the cervical spine. ACT 112: Negative or not required by law. Electronically signed by: Lee Rose M.D. 03/11/2024 6:20 PM Chest X-Ray 03/11/24 17:04 XR chest 1V portable HISTORY: weakness COMPARISON: Chest 02/02/2024. FINDINGS: No pneumothorax. No pleural effusions. The heart remains mildly enlarged. The lungs are clear. No acute fractures identified. IMPRESSION: Stable mild cardiomegaly. Otherwise, no acute process within the chest. ACT 112: Negative or not required by law. Electronically signed by: Lee Rose M.D. 03/11/2024 5:[address] 03/11/24 17:[address] DOSE: HISTORY: altered mental status s/p fall TECHNIQUE: Multiaxial CT images of the head were performed without the use of intravenous contrast. Automated exposure control was utilized for this study. A dose lowering technique was utilized adhering to the principles of ALARA. Comparison: Head CT 03/06/2024. Findings: The paranasal sinuses and mastoid air cells are clear. The calvarium and skull base are intact. There is no mass, hematoma, midline shift, acute infarct. White matter hypodensity is nonspecific but suggestive of microvascular ischemic change. The ventricles and sulci demonstrate mild age-related involutional changes. Impression: No acute intracranial abnormality. Left posterior scalp swelling. ACT 112: Negative or not required by law. Electronically signed by: Lee Rose M.D. 03/11/2024 6:25 PM Pelvis X-Ray 03/11/24 17:11 XR pelvis 1-2V routine CLINICAL HISTORY: Fall. Left hip pain. COMPARISON STUDY: Pelvis radiograph 08/17/2022. FINDINGS: Displaced subcapital left femoral neck fracture. No dislocation. The visualized pelvic bones and right hip are intact. The left femur demonstrates up to 2.6 cm of superior displacement. There soft tissue swelling within the left hip. IMPRESSION: Displaced subcapital left femoral neck fracture. ACT 112: Negative or not required by law. Electronically signed by: Lee Rose M.D. 03/11/2024 5:[address] 03/11/24 17:40 CT pelvis wo con, CT hip LT wo con CT DOSE: 402.83 mGy.cm CLINICAL HISTORY: L hip pain s/p fall TECHNIQUE: Multiaxial CT images of the pelvis and left hip were performed without contrast and reformatted in the sagittal and coronal planes. A dose lowering technique was utilized adhering to the principles of ALARA. COMPARISON STUDY: Pelvis radiograph 03/11/2024. FINDINGS: There is a displaced, angulated, and mildly impacted left subcapital femoral neck fracture. There is up to 2.5 cm of superior displacement of the femoral neck and relation to the femoral head. No dislocation. There is also a small nondisplaced fracture within the right sacral wing adjacent to the sacroiliac joint. No pelvic hematoma identified. No pelvic free fluid. A pessary device is noted. The bladder is decompressed by a Gutierrez catheter. Colonic diverticulosis. Moderate fecal retention. IMPRESSION: 1. Displaced subcapital left femoral neck fracture. No dislocation. 2. Small nondisplaced right sacral ala fracture. ACT 112: Negative or not required by law. Electronically signed by: Lee Rose M.D. 03/11/2024 6:[address] 03/11/24 17:41 CT pelvis wo con, CT hip LT wo con CT DOSE: 402.83 mGy.cm CLINICAL HISTORY: L hip pain s/p fall TECHNIQUE: Multiaxial CT images of the pelvis and left hip were performed without contrast and reformatted in the sagittal and coronal planes. A dose lowering technique was utilized adhering to the principles of ALARA. COMPARISON STUDY: Pelvis radiograph 03/11/2024. FINDINGS: There is a displaced, angulated, and mildly impacted left subcapital femoral neck fracture. There is up to 2.5 cm of superior displacement of the femoral neck and relation to the femoral head. No dislocation. There is also a small nondisplaced fracture within the right sacral wing adjacent to the sacroiliac joint. No pelvic hematoma identified. No pelvic free fluid. A pessary device is noted. The bladder is decompressed by a Gutierrez catheter. Colonic diverticulosis. Moderate fecal retention. IMPRESSION: 1. Displaced subcapital left femoral neck fracture. No dislocation. 2. Small nondisplaced right sacral ala fracture. ACT 112: Negative or not required by law. Electronically signed by: Lee Rose M.D. 03/11/2024 6:15 PM Discharge Plan Visit Data Chief Complaint: Trauma ED Provider: Azul Rivas Discharge Problem: Fall from standing, Acute UTI (urinary tract infection), Closed fracture of neck of left femur, Closed fracture of right pelvis, Elevated lactic acid level, Acute hyponatremia Forms Stand Alone Forms: [facility] Prescriptions Prescriptions: No Action multivitamin Tablet 1 tab PO QAM acetaminophen 325 mg Tablet 650 mg PO Q6 MDD 3 GRAMS APAP/24 HOURS PRN (Reason: Fever Or Pain) omega 8-lcg-cow-fish oil [Fish Oil] 1,200 (144-216) mg Capsule 1 cap PO QAM rosuvastatin 20 mg tablet 20 mg PO HS carvedilol 6.25 mg tablet 6.25 mg PO BID amlodipine 5 mg tablet 5 mg PO BID acetaminophen [Tylenol Extra Strength] 500 mg Tablet 1,000 mg PO HS famotidine 20 mg tablet 20 mg PO BID levothyroxine 125 mcg tablet 125 mcg PO QAM fluorometholone 0.1 % drops,suspension 1 drp OPB QID furosemide 20 mg tablet 20 mg PO QAM risperidone 0.5 mg tablet 0.5 mg PO HS cyclosporine 0.05 % dropperette 1 drp OPB BID duloxetine 20 mg capsule,delayed release(DR/EC) 20 mg PO QAM melatonin 5 mg Tablet 5 mg PO HS cholecalciferol (vitamin D3) [Vitamin D3] 50 mcg (2,000 unit) Capsule 50 mcg PO QAM PreserVision AREDS-2 250-90-40-1 mg Capsule 1 tab PO BID clopidogrel 75 mg Tablet 75 mg PO QAM 30 Days Qty: 30 0RF buspirone [BuSpar] 10 mg Tablet 10 mg PO TID sodium chloride 1,000 mg Tablet,Soluble 1,000 mg PO DAILY Systane Ultra (PF) 0.4-0.3 % Drops 1 drp OPB QID Referrals Referrals: Deepti Francois CRNP [Primary Care Provider] -
[2024-03-11 17:38] LABS: Basophils # (auto) 0.02 K/uL (0.00-0.20); Basophils % (auto) 0.2 %; Eosinophils # (auto) 0.03 K/uL (0.00-0.50); Eosinophils % (auto) 0.3 %; Hematocrit (blood only) 26.6 % (37.0-47.0); Hemoglobin 8.9 g/dl (12.0-16.0); Immature Granulocytes # (auto) 0.05 K/uL (0.01-0.20); Immature Granulocytes % (auto) 0.5 %; Lymphocytes # (auto) 1.08 K/uL (1.20-3.40); Lymphocytes % (auto) 9.8 %; Mean Corpuscular Hemoglobin 30.7 pg (25.0-34.0); Mean Corpuscular Hgb Conc 33.5 g/dL (32.0-36.0); Mean Corpuscular Volume 91.7 fL (80.0-100.0); Mean Platelet Volume 9.9 fL (9.4-12.4); Monocytes # (auto) 0.94 K/uL (0.11-0.59); Monocytes % (auto) 8.5 %; Neutrophils # (auto) 8.88 K/uL (1.40-6.50); Neutrophils % (auto) 80.7 %; Platelet Count 247 K/uL (130-400); RDW Coefficient of Variation 13.6 % (11.5-14.5); RDW Standard Deviation 45.8 fL (36.4-46.3)
[2024-03-11 17:52] LABS: Albumin Globulin Ratio 0.9 (0.9-2); Albumin Level 3.8 gm/dl (3.4-5.0); BUN Creatinine Ratio 26.5 (10-20); Bilirubin,Total 0.4 mg/dl (0.2-1.0); Calcium 9.3 mg/dl (8.6-10.3); Creatinine Clr Calc Pharmacy 16.1 ml/min; Est GFR (African American) 30.5 ml/min; Est GFR (Non-African American) 26.3 ml/min; Globulin 4.3 gm/dl (2.5-4.0); Magnesium 2.1 mg/dl (1.7-2.4); Potassium 4.3 mmol/L (3.5-5.1); Total Protein 8.1 gm/dl (6.0-8.3)
--- NOTE | 2024-03-11 17:57 | XRay Report ---
XR chest 1V portable HISTORY: weakness COMPARISON: Chest 02/02/2024. FINDINGS: No pneumothorax. No pleural effusions. The heart remains mildly enlarged. The lungs are maria r ar. No acute fractures identified. IMPRESSION: Stable mild cardiomegaly. Otherwise, no acute process within the chest. ACT 112: Negative or not required by law. Electronically signed by: Lee Rose M.D. 03/11/2024 5:56 PM
--- NOTE | 2024-03-11 17:58 | XRay Report ---
XR pelvis 1-2V routine CLINICAL HISTORY: Fall. Left hip pain. COMPARISON STUDY: Pelvis radiograph 08/17/2022. FINDINGS: Displaced subcapital left femoral neck fracture. No dislocation. The visualized pelvic bone s and right hip are intact. The left femur demonstrates up to 2.6 cm of superior displacement. There soft tissue swelling within the left hip. IMPRESSION: Displaced subcapital left femoral neck fracture. ACT 112: Negative or not required by law. Electronically signed by: Lee Rose M.D. 03/11/2024 5:57 PM
[2024-03-11 17:59] LABS: Troponin I High Sensitivity 11.5 pg/ml (0-14)
[2024-03-11 18:05] LABS: Prothrombin Time 10.4 Seconds (9.0-12.0)
[2024-03-11 18:08] LABS: Thyroid Stimulating Hormone 0.449 uIu/ml (0.300-4.500)
[2024-03-11 18:15] LABS: Appearance Urine Cloudy (Clear); Bacteria Urine Automated None Seen (None Seen); Bilirubin Urine Negative (Negative); Blood Urine 2+ (Negative); Cast Urine Automated >20 /lpf (0-2); Color Urine Yellow; Glucose Urine UA Negative (Negative); Ketones Urine Negative (Negative); Leukocyte Esterase Urine 2+ (Negative); Nitrite Urine Negative (Negative); Protein Urine 4+ (Negative); RBC Urine Automated >20 /hpf (0-2); Urobilinogen Urine Negative (Negative)
[2024-03-11] MEDS: SODIUM CHLORIDE 0.9% 1,000 ML IV ONE (18:15)
[2024-03-11 18:17] LABS: Adenovirus PCR Not Detected (NotDetected); Bordetella parapertussis PCR Not Detected (NotDetected); Bordetella pertussis PCR Not Detected (NotDetected); Chlamydia pneumoniae PCR Not Detected (NotDetected); Coronavirus 229E PCR Not Detected (NotDetected); Coronavirus CoV-2 (COVID19)PCR Not Detected (NotDetected); Coronavirus HKU1 PCR Not Detected (NotDetected); Coronavirus NL63 PCR Not Detected (NotDetected); Coronavirus OC43PCR Not Detected (NotDetected); Human Metapneumovirus PCR Not Detected (NotDetected); Influenza A PCR Not Detected (NotDetected); Influenza B PCR Not Detected (NotDetected); Mycoplasma pneumoniae PCR Not Detected (NotDetected); Parainfluenza Virus 1 PCR Not Detected (NotDetected); Parainfluenza Virus 2 PCR Not Detected (NotDetected); Parainfluenza Virus 3 PCR Not Detected (NotDetected); Parainfluenza Virus 4 PCR Not Detected (NotDetected); Respiratory Syncytial VirusPCR Not Detected (NotDetected); Rhinovirus/Enterovirus PCR Not Detected (NotDetected)
--- NOTE | 2024-03-11 18:18 | CT Scan Report ---
CT pelvis wo con, CT hip LT wo con CT DOSE: 402.83 mGy.cm CLINICAL HISTORY: L hip pain s/p fall TECHNIQUE: Multiaxial CT images of the pelvis and left hip were performed without contrast and reform atted in the sagittal and coronal planes. A dose lowering technique was utilized adhering to the darien Sloan. COMPARISON STUDY: Pelvis radiograph 03/11/2024. FINDINGS: There is a displaced, angulated, and mildly impacted left subcapital femoral neck fracture. There is up to 2.5 cm of superior displacement of the femoral neck and relation to the femoral head. No dislocation. There is also a small nondisplaced fracture within the right sacral wing adjacent to the sacroiliac joint. No pelvic hematoma identified. No pelvic free fluid. A pessary device is noted . The bladder is decompressed by a Gutierrez catheter. Colonic diverticulosis. Moderate fecal retention. IMPRESSION: 1. Displaced subcapital left femoral neck fracture. No dislocation. 2. Small nondisplaced right sacral ala fracture. ACT 112: Negative or not required by law. Electronically signed by: Lee Rose M.D. 03/11/2024 6:15 PM
--- NOTE | 2024-03-11 18:23 | CT Scan Report ---
CERVICAL SPINE CT CT DOSE: 972.93 mGy.cm HISTORY: altered mental status s/p fall TECHNIQUE: Multiaxial CT images of the cervical spine were performed and reformatted in the sagittal and coronal plane without the use of contrast. A dose lowering technique was utilized adhering to th e principles of ALARA. COMPARISON: Cervical spine CT 08/17/2022. FINDINGS: No fractures. No subluxation. Prevertebral soft tissues and the C1-C2 interval are intact. No pneumothorax. Mild chronic anterior wedging at T1, unchanged IMPRESSION: No fractures within the cervical spine. ACT 112: Negative or not required by law. Electronically signed by: Lee Rose M.D. 03/11/2024 6:20 PM
--- NOTE | 2024-03-11 18:27 | CT Scan Report ---
HEAD CT NONCONTRAST CT DOSE: HISTORY: altered mental status s/p fall TECHNIQUE: Multiaxial CT images of the head were performed without the use of intravenous contrast. A utomated exposure control was utilized for this study. A dose lowering technique was utilized adheri ng to the principles of ALARA. Comparison: Head CT 03/06/2024. Findings: The paranasal sinuses and mastoid air cells are clear. The calvarium and skull base are int act. There is no mass, hematoma, midline shift, acute infarct. White matter hypodensity is nonspecifi c but suggestive of microvascular ischemic change. The ventricles and sulci demonstrate mild age-rela anju involutional changes. Impression: No acute intracranial abnormality. Left posterior scalp swelling. ACT 112: Negative or not required by law. Electronically signed by: Lee Rose M.D. 03/11/2024 6:25 PM
[2024-03-11] MEDS: cefTRIAXone SODIUM 2,000 MG/50 ML BAG IV STA (19:14)
--- NOTE | 2024-03-11 19:45 | History & Physical Report ---
Date of Service March 11, 2024 Assessment & Plan (1) Closed fracture of neck of left femur: Plan: 89yo female s/p unwitnessed fall on 03/09/24 - presenting with displaced subcapital left femoral neck fracture. Pain is seemingly well controlled. -Admit to medical -Keep NPO -Orthopedic surgery consultation appreciated -Pain control with Tylenol 1gm po TID scheduled -Zofran PRN Patient with recent TIA. She completed 3 weeks of DAPT and is presently on Plavix 75mg daily. She has likely dementia - suspect prolonged delirium as daughter reports that patient's mental state has not yet returned to baseline since her admission in early January. Her delirium may pose a post-operative problem if she tries to get out of bed or does not follow commands -Maintain fall precautions -Maintain Gutierrez catheter (2) Acute hyponatremia: Plan: Patient with acute on chronic hyponatremia - [id number]. Possibly contributing to her confusion and metabolic encephalopathy -Continue NACL tablets 1gm po daily -Repeat chemistry in AM (3) Delirium: Plan: Suspect prolonged course of delirium with underlying dementia. Multiple hospital visits, procedures over the last several weeks. -Frequent orientation, maintain sleep/wake cycles where able -Continue Risperidone 0.5mg po qHS -Cautious use of QT prolonging agents - [id number] -Fall precautions -Continue home Buspirone and Cymbalta Plan Chronic Medical Conditions: Hypertension - chronic -Continue Amlodipine -Continue Carvedilol Hypothyroidism - chronic -Continue Synthroid GERD - chronic -continue Pepcid TIA - recent -Hold Plavix -Continue Rosuvastatin History of Present Illness Chief Complaint: fall, confusion Primary Care Provider: GAYLA Cesar Madelyndiallo Margo is an 89yo female with history of Sjogren's syndrome, HTN, recent TIA and Hypothyroidism presenting from [facility] after a fall. Patient is confused - daughter Sridevi is at bedside and provides the history. Patient has not been doing well for the last 6-7 weeks. She was admitted to [facility] from 01/17 - 01/22/2024 after presenting from her personal care facility with confusion and UTI (diagnosed by PCP on 01/16/24 - had been on Macrobid). Patient was treated with Ceftriaxone during that hospitalization - she did have a likely aspiration event causing acute hypoxic respiratory failure which was treated with supportive care and steroids. She was ultimately discharged back to [facility]. She was readmitted to the hospital on 02/01 - 02/15/24 after presenting with agitation and confusion. Thought to be secondary to delirium. Patient suffered a TIA on 02/07/24 and was started on ASA and Plavix. DAPT to continue x 3 weeks then Plavix indefinitely. Patient was started on Risperidone qHS for agitation and ultimately discharged to [facility]. On 02/23/24 patient had a cystoscopy to evaluate a lesion at the urethra/bladder neck that was causing urinary obstruction. She had a TURBT performed on 03/06/[address] Leon. Daughter reports that patient has not been herself since the initial hospitalization on 01/18/24. She has had waxing and waning mental status, periods of confusion as well as occasional agitation. Daughter reports that patient's mental status was almost at baseline after her urethral surgery. Patient apparently sustained a fall at her skilled nursing on the evening of 03/09/24 around 19:30 - uncertain if witnessed or unwitnessed. Daughter was notified the afternoon of 03/10/24 of the fall and was told that everything was fine. Daughter visited today 03/11/24 and found her mother sitting in a wheelchair, slumped over and confused. She noted a bump on the back of patient's head as well as bruising on the left side of her neck. In the ER patient is afebrile, HD stable and non-toxic in appearance ER Course: Ceftriaxone NSS x 1L Pepcid 20mg Risperidone 0.5mg Crestor 20mg Buspirone 10mg Carvedilol 6.25mg Tylenol 1gm Allergies Allergy/AdvReac Type Severity Reaction Status Date / Time Sulfa (Sulfonamide Allergy Intermediate Rash Verified 03/06/24 08:45 Antibiotics) adhesive Allergy Mild rash Verified 03/06/24 08:45 enalaprilat [From Vasotec] Allergy Unknown Unknown Verified 03/06/24 08:45 atorvastatin AdvReac Severe Unconscious Verified 03/06/24 08:45 Home Medications Medication Instructions Recorded Confirmed Type acetaminophen 500 mg tablet 1,000 mg PO HS 02/03/24 03/11/24 History (Tylenol Extra Strength) amlodipine 5 mg tablet 5 mg PO BID 02/03/24 03/11/24 History carvedilol 6.25 mg tablet 6.25 mg PO BID 02/03/24 03/11/24 History cholecalciferol (vitamin D3) 50 50 mcg PO QAM 02/03/24 03/11/24 History mcg (2,000 unit) capsule (Vitamin D3) cyclosporine 0.05 % eye drops in a 1 drp OPB BID 02/03/24 03/11/24 History dropperette duloxetine 20 mg capsule,delayed 20 mg PO QAM 02/03/24 03/11/24 History release famotidine 20 mg tablet 20 mg PO BID 02/03/24 03/11/24 History fluorometholone 0.1 % eye 1 drp OPB QID 02/03/24 03/11/24 History drops,suspension furosemide 20 mg tablet 20 mg PO QAM 02/03/24 03/11/24 History levothyroxine 125 mcg tablet 125 mcg PO QAM 02/03/24 03/11/24 History melatonin 5 mg tablet 5 mg PO HS 02/03/24 03/11/24 History risperidone 0.5 mg tablet 0.5 mg PO HS 02/03/24 03/11/24 History vit C 250 mg-vit E 90 mg-zinc 40 1 tab PO BID 02/03/24 03/11/24 History mg-copper 1 [id number] capsule (PreserVision AREDS-2) clopidogrel 75 mg tablet 75 mg PO QAM 30 days #30 tabs 02/15/24 03/11/24 Rx acetaminophen 325 mg tablet 650 mg PO Q6 PRN Fever Or Pain 02/28/24 03/11/24 History multivitamin 1 tab PO QAM 02/28/24 03/11/24 History omega [id number]-rka-fish oil 1,200 mg 1 cap PO QAM 02/28/24 03/11/24 History (144 mg-216 mg) capsule (Fish Oil) rosuvastatin 20 mg tablet 20 mg PO HS 02/28/24 03/11/24 History buspirone 10 mg tablet 10 mg PO TID 03/06/24 03/11/24 History sodium chloride 1,000 mg soluble 1,000 mg PO DAILY 03/06/24 03/11/24 History tablet peg 400 0.4 %-propylene glycol 1 drp OPB QID 03/11/24 03/11/24 History (PF) 0.3 % eye drops (Systane Ultra (PF)) Past Med/Surg History Problem List (Updated 03/12/24 @ 03:13 by Natasha Santillan DO) Delirium Acute hyponatremia (Acute) Elevated lactic acid level (Acute) Closed fracture of right pelvis (Acute) Closed fracture of neck of left femur (Acute) Acute UTI (urinary tract infection) (Acute) Fall from standing (Acute) Weakness (Acute) Combative behavior (Acute) Headache (Acute) Sundowning Dementia Acute respiratory failure with hypoxia Aspiration into airway Acute UTI (Acute) PATRICIA (acute kidney injury) (Acute) Sepsis UTI (urinary tract infection), uncomplicated Anxiety Forgetfulness Orthostatic hypotension dysautonomic syndrome Diarrhea Hyponatremia (Acute) Anemia Urinary incontinence Ambulatory dysfunction Hearing loss (Acute) General weakness Weight loss Poor balance Poor eyesight Right shoulder pain Tinea corporis GERD (gastroesophageal reflux disease) Pessary maintenance Dysphagia Peripheral edema Rectocele Insomnia Cystocele Recurrent falls Situational anxiety Pulmonary nodule (Chronic) Monoclonal gammopathy of undetermined significance (Chronic) Medical History TIA (transient ischemic attack) unspecified UTI (urinary tract infection) site not specified Localized edema Localized enlarged lymph nodes Nonrheumatic aortic (valve) stenosis Colon polyp Acute kidney failure Hypertensive chronic kidney disease with stage 1 through stage 4 chronic kidney disease, or unspecified chronic kidney disease Urinary retention Unspecified dementia, unspecified severity, without behavioral disturbance, psychotic disturbance, mood disturbance, and anxiety Delirium due to known physiological condition Transient ischemic attack (TIA) Anemia Hypertension Hypothyroidism Sjogren's syndrome Sprain of left ankle Sprain of left foot Hypertensive urgency Constipation Fall Hypomagnesemia Right elbow pain Dermatitis Neuropathy Left hand pain Cervical muscle strain Peripheral edema Insomnia Sensorineural hearing loss (SNHL) of both ears Memory changes Increased urinary frequency Aortic valve sclerosis Arteriosclerosis of carotid artery Benign neoplasm of colon Cervical lymphadenopathy Chronic hoarseness Mixed hyperlipidemia Osteoporosis Rotator cuff tear, left Unsteady gait Vocal cord paralysis Trigeminal neuralgia right Spinal stenosis Osteoarthritis IBS (irritable bowel syndrome) GERD (gastroesophageal reflux disease) Macular degeneration Claustrophobia Cardiac murmur Hyperlipidemia HX OF Surgical History Hx of arthroscopy of shoulder 2019, left History of lumpectomy History of hysterectomy History of bladder surgery BLADDER TACK History of total abdominal hysterectomy and bilateral salpingo-oophorectomy History of colonoscopy History of throat surgery THURNWALDT CYST BENIGN History of tooth extraction History of tonsillectomy History of adenoidectomy Family History Son Family history of diabetes mellitus Father Cancer Sister Cancer Breast cancer Heart disease H/O heart artery stent Mother Myocardial infarction Grandmother AAA (abdominal aortic aneurysm) Myocardial infarction Denies family history of Ovarian cancer Prostate cancer Colorectal cancer Social History Smoking Status: Never smoker Hx Alcohol Use: No Hx Substance Use: No Preferred Language: Guyanese Communication Ability: Impaired Communication Ability Comment: hard of hearing Visual Impairment: Limited Hearing Ability: Use of Hearing Aid Manager Telemarketing Required: No Beliefs That Will Affect Care: Mu-Ism marital status: / Current [facility] Situation[facility] Current Living Situation Comment: [facility] current occupational status: retired How many Children do You have: 3 Other Information That Helps Us Care for You: No Feels Safe at Home: Yes Safety Concerns: Feels Safe At This Time Childhood Exposure to Second-Hand Smoke: No Diet: Soft caffeine: Yes during the past year weight has: remained stable Dental Care, Regularly: No Physical Activity Frequency: Does not Exercise Seatbelt Use: always Sunscreen Use: Yes Assistive Devices: Denture - Upper, Denture - Lower, Hearing Aid - Left and Wheelchair Review of Systems Review of Systems: All systems reviewed & are unremarkable except as noted in HPI & below Physical Exam Physical Exam: General: patient somnolent, arousable, very hard of hearing - doesn't answer questions or follow commands Skin: thin, scattered bruising - left neck, posterior scalp HEENT: NC/AT, PERRL, EOMI, anicteric sclera, conjunctiva without injection, external ear normal to inspection and nontender, nares patent, dry mucus membranes, dentition intact, no oropharyngeal lesions, neck supple, trachea midline, no LAD, no thyromegaly, no JVD Heart: +S1/S2, regular, 3/6 DIANE across precordium Lungs: equal air entry bilaterally, no rales/rhonchi/wheezes Abd: +BS, soft, NT/ND, no masses/organomegaly/ascites Ext: LLE shortened and externally rotated, no bruising of flank, NV intact Neuro: hard of hearing, not oriented, not following commands Results & Data Results & Data Vital Signs (Past 12 Hours) Vital Signs Temp Pulse Pulse Pulse Resp BP BP 03/11/24 19:42 93 H 18 101/71 03/11/24 19:33 93 H 18 101/71 03/11/24 18:42 96 H 18 03/11/24 18:30 142/80 H 03/11/24 18:21 114 H 18 03/11/24 18:10 151/67 H 03/11/24 18:03 89 03/11/24 18:00 84 20 118/74 03/11/24 17:51 95 H 20 156/78 H 03/11/24 17:17 36.8 C 86 20 157/96 H 03/11/24 17:17 89 18 157/96 H 03/11/24 16:57 36.5 C 91 H 20 147/72 H Pulse Ox O2 Del Method 03/11/24 19:42 93 Room Air 03/11/24 19:33 92 Room Air 03/11/24 18:42 93 Room Air 03/11/24 18:30 03/11/24 18:21 93 Room Air 03/11/24 18:10 03/11/24 18:03 03/11/24 18:00 94 Room Air 03/11/24 17:51 96 Room Air 03/11/24 17:17 98 Room Air 03/11/24 17:17 96 Room Air 03/11/24 16:57 97 Room Air Laboratory Results Laboratory Results WBC 11.00 K/ul (4.8-10.8) H 03/11/24 17:20 RBC 2.90 M/uL (4.20-5.40) L 03/11/24 17:20 Hgb 8.9 g/dl (12.0-16.0) L 03/11/24 17:20 Hct 26.6 % (37.0-47.0) L 03/11/24 17:20 MCV 91.7 fL (80.0-100.0) 03/11/24 17:20 MCH 30.7 pg (25.0-34.0) 03/11/24 17:20 MCHC 33.5 g/dL (32.0-36.0) 03/11/24 17:20 RDW Std Deviation 45.8 fL (36.4-46.3) 03/11/24 17:20 RDW Coeff of Neto 13.6 % (11.5-14.5) 03/11/24 17:20 Plt Count 247 K/uL (130-400) 03/11/24 17:20 MPV 9.9 fL (9.4-12.4) 03/11/24 17:20 Immature Gran % (Auto) 0.5 % 03/11/24 17:20 Neut % (Auto) 80.7 % 03/11/24 17:20 Lymph % (Auto) 9.8 % 03/11/24 17:20 Terrell % (Auto) 8.5 % 03/11/24 17:20 Eos % (Auto) 0.3 % 03/11/24 17:20 Baso % (Auto) 0.2 % 03/11/24 17:20 Neut # (Auto) 8.88 K/uL (1.40-6.50) H 03/11/24 17:20 Lymph # (Auto) 1.08 K/uL (1.20-3.40) L 03/11/24 17:20 Terrell # (Auto) 0.94 K/uL (0.11-0.59) H 03/11/24 17:20 Eos # (Auto) 0.03 K/uL (0.00-0.50) 03/11/24 17:20 Baso # (Auto) 0.02 K/uL (0.00-0.20) 03/11/24 17:20 Immature Gran # (Auto) 0.05 K/uL (0.01-0.20) 03/11/24 17:20 PT 10.4 Seconds (9.0-12.0) 03/11/24 17:20 INR 1.0 (0.9-1.1) 03/11/24 17:20 Sodium 128 mmol/L (136-145) L 03/11/24 17:20 Potassium 4.3 mmol/L (3.5-5.1) 03/11/24 17:20 Chloride 92 mmol/L (98-107) L 03/11/24 17:20 Carbon Dioxide 25 mmol/L (21-32) 03/11/24 17:20 Anion Gap 11 (3-11) 03/11/24 17:20 BUN 45 mg/dl (6-23) H 03/11/24 17:20 Creatinine 1.70 mg/dl (0.6-1.2) H 03/11/24 17:20 Est Cr Clr Drug Dosing 16.1 ml/min 03/11/24 17:20 Est GFR ( Amer) 30.5 ml/min 03/11/24 17:20 Est GFR (Non-Af Amer) 26.3 ml/min 03/11/24 17:20 BUN/Creatinine Ratio 26.5 (10-20) H 03/11/24 17:20 Glucose 150 mg/dl (70-99(Fasting)) H 03/11/24 17:20 Lactate 1.2 mmol/L (0.4-2.0) 03/11/24 19:01 Calcium 9.3 mg/dl (8.6-10.3) 03/11/24 17:20 Magnesium 2.1 mg/dl (1.7-2.4) 03/11/24 17:20 Total Bilirubin 0.4 mg/dl (0.2-1.0) 03/11/24 17:20 AST 27 U/L (13-39) 03/11/24 17:20 ALT 14 U/L (7-52) 03/11/24 17:20 Alkaline Phosphatase 109 U/L (34-104) H 03/11/24 17:20 Troponin I High Sens 11.5 pg/ml (0-14) 03/11/24 17:20 Total Protein 8.1 gm/dl (6.0-8.3) 03/11/24 17:20 Albumin 3.8 gm/dl (3.4-5.0) 03/11/24 17:20 Globulin 4.3 gm/dl (2.5-4.0) H 03/11/24 17:20 Albumin/Globulin Ratio 0.9 (0.9-2) 03/11/24 17:20 TSH 0.449 uIu/ml (0.300-4.500) 03/11/24 17:20 Urine Color Yellow 03/11/24 18:00 Urine Appearance Cloudy (Clear) A 03/11/24 18:00 Urine pH 6.0 (4.5-7.5) 03/11/24 18:00 Ur Specific [place] 1.020 (1.000-1.030) 03/11/24 18:00 Urine Protein 4+ (Negative) H 03/11/24 18:00 Urine Glucose (UA) Negative (Negative) 03/11/24 18:00 Urine Ketones Negative (Negative) 03/11/24 18:00 Urine Blood 2+ (Negative) H 03/11/24 18:00 Urine Nitrite Negative (Negative) 03/11/24 18:00 Urine Bilirubin Negative (Negative) 03/11/24 18:00 Urine Urobilinogen Negative (Negative) 03/11/24 18:00 Ur Leukocyte Esterase 2+ (Negative) H 03/11/24 18:00 Urine WBC (Auto) 11-20 /hpf (0-5) H 03/11/24 18:00 Urine RBC (Auto) >20 /hpf (0-2) H 03/11/24 18:00 U Hyaline Cast (Auto) >20 /lpf (0-2) H 03/11/24 18:00 U Epithel Cells (Auto) 3-5 /hpf (0-2) H 03/11/24 18:00 Urine Bacteria (Auto) None Seen (None Seen) 03/11/24 18:00 Adenovirus (PCR) Not Detected (NotDetected) 03/11/24 17:17 B. pertussis DNA (PCR) Not Detected (NotDetected) 03/11/24 17:17 B.parapertussis DNA PCR Not Detected (NotDetected) 03/11/24 17:17 C. pneumoniae DNA (PCR) Not Detected (NotDetected) 03/11/24 17:17 Coronavirus OC43 (PCR) Not Detected (NotDetected) 03/11/24 17:17 Coronavirus HKU1 (PCR) Not Detected (NotDetected) 03/11/24 17:17 Coronavirus 229E (PCR) Not Detected (NotDetected) 03/11/24 17:17 SARS-CoV-2 (PCR) Not Detected (NotDetected) 03/11/24 17:17 Coronavirus NL63 (PCR) Not Detected (NotDetected) 03/11/24 17:17 Human Metapneumovir PCR Not Detected (NotDetected) 03/11/24 17:17 Influenza Type A (PCR) Not Detected (NotDetected) 03/11/24 17:17 Influenza Type B (PCR) Not Detected (NotDetected) 03/11/24 17:17 M. pneumoniae (PCR) Not Detected (NotDetected) 03/11/24 17:17 Parainfluenza 1 (PCR) Not Detected (NotDetected) 03/11/24 17:17 Parainfluenza 2 (PCR) Not Detected (NotDetected) 03/11/24 17:17 Parainfluenza 3 (PCR) Not Detected (NotDetected) 03/11/24 17:17 Parainfluenza 4 (PCR) Not Detected (NotDetected) 03/11/24 17:17 RSV (PCR) Not Detected (NotDetected) 03/11/24 17:17 Entero/Rhino (PCR) Not Detected (NotDetected) 03/11/24 17:[address] 03/11/24 17:[address] DOSE: 972.93 mGy.cm HISTORY: altered mental status s/p fall TECHNIQUE: Multiaxial CT images of the cervical spine were performed and reformatted in the sagittal and coronal plane without the use of contrast. A dose lowering technique was utilized adhering to the principles of ALARA. COMPARISON: Cervical spine CT 08/17/2022. FINDINGS: No fractures. No subluxation. Prevertebral soft tissues and the C1-C2 interval are intact. No pneumothorax. Mild chronic anterior wedging at T1, unchanged IMPRESSION: No fractures within the cervical spine. ACT 112: Negative or not required by law. Electronically signed by: Lee Rose M.D. 03/11/2024 6:20 PM Chest X-Ray 03/11/24 17:04 XR chest 1V portable HISTORY: weakness COMPARISON: Chest 02/02/2024. FINDINGS: No pneumothorax. No pleural effusions. The heart remains mildly enlarged. The lungs are clear. No acute fractures identified. IMPRESSION: Stable mild cardiomegaly. Otherwise, no acute process within the chest. ACT 112: Negative or not required by law. Electronically signed by: Lee Rose M.D. 03/11/2024 5:[address] 03/11/24 17:[address] DOSE: HISTORY: altered mental status s/p fall TECHNIQUE: Multiaxial CT images of the head were performed without the use of intravenous contrast. Automated exposure control was utilized for this study. A dose lowering technique was utilized adhering to the principles of ALARA. Comparison: Head CT 03/06/2024. Findings: The paranasal sinuses and mastoid air cells are clear. The calvarium and skull base are intact. There is no mass, hematoma, midline shift, acute infarct. White matter hypodensity is nonspecific but suggestive of microvascular ischemic change. The ventricles and sulci demonstrate mild age-related involutional changes. Impression: No acute intracranial abnormality. Left posterior scalp swelling. ACT 112: Negative or not required by law. Electronically signed by: Lee Rose M.D. 03/11/2024 6:25 PM Pelvis X-Ray 03/11/24 17:11 XR pelvis 1-2V routine CLINICAL HISTORY: Fall. Left hip pain. COMPARISON STUDY: Pelvis radiograph 08/17/2022. FINDINGS: Displaced subcapital left femoral neck fracture. No dislocation. The visualized pelvic bones and right hip are intact. The left femur demonstrates up to 2.6 cm of superior displacement. There soft tissue swelling within the left hip. IMPRESSION: Displaced subcapital left femoral neck fracture. ACT 112: Negative or not required by law. Electronically signed by: Lee Rose M.D. 03/11/2024 5:[address] 03/11/24 17:40 CT pelvis wo con, CT hip LT wo con CT DOSE: 402.83 mGy.cm CLINICAL HISTORY: L hip pain s/p fall TECHNIQUE: Multiaxial CT images of the pelvis and left hip were performed without contrast and reformatted in the sagittal and coronal planes. A dose lowering technique was utilized adhering to the principles of ALARA. COMPARISON STUDY: Pelvis radiograph 03/11/2024. FINDINGS: There is a displaced, angulated, and mildly impacted left subcapital femoral neck fracture. There is up to 2.5 cm of superior displacement of the femoral neck and relation to the femoral head. No dislocation. There is also a small nondisplaced fracture within the right sacral wing adjacent to the sacroiliac joint. No pelvic hematoma identified. No pelvic free fluid. A pessary device is noted. The bladder is decompressed by a Gutierrez catheter. Colonic diverticulosis. Moderate fecal retention. IMPRESSION: 1. Displaced subcapital left femoral neck fracture. No dislocation. 2. Small nondisplaced right sacral ala fracture. ACT 112: Negative or not required by law. Electronically signed by: Lee Rose M.D. 03/11/2024 6:[address] 03/11/24 17:41 CT pelvis wo con, CT hip LT wo con CT DOSE: 402.83 mGy.cm CLINICAL HISTORY: L hip pain s/p fall TECHNIQUE: Multiaxial CT images of the pelvis and left hip were performed without contrast and reformatted in the sagittal and coronal planes. A dose lowering technique was utilized adhering to the principles of ALARA. COMPARISON STUDY: Pelvis radiograph 03/11/2024. FINDINGS: There is a displaced, angulated, and mildly impacted left subcapital femoral neck fracture. There is up to 2.5 cm of superior displacement of the femoral neck and relation to the femoral head. No dislocation. There is also a small nondisplaced fracture within the right sacral wing adjacent to the sacroiliac joint. No pelvic hematoma identified. No pelvic free fluid. A pessary device is noted. The bladder is decompressed by a Gutierrez catheter. Colonic diverticulosis. Moderate fecal retention. IMPRESSION: 1. Displaced subcapital left femoral neck fracture. No dislocation. 2. Small nondisplaced right sacral ala fracture. ACT 112: Negative or not required by law. Electronically signed by: Lee Rose M.D. 03/11/2024 6:15 PM ECG Additional Comments: EKG with SR at 91bpm, Premature complexes, no acute ischemic changes Motion degraded study PG Care Time/CCT Total # of Minutes Spent Total Time Spent with Patient: Total time spent is greater than 50% in coordination of care (as documented) at patient's floor/unit and/or counseling patient: Coding Level of Care Code 61928 INT INP/OBS CARE 3/75MIN Diagnoses Closed fracture of neck of left femur S72.002A Acute hyponatremia E87.1 Delirium R41.0
[2024-03-11] MEDS ORDERED: NALOXONE HCL 0.4 MG/1 ML VIAL/CARP IV PRN (21:20)
[2024-03-11] MEDS ORDERED: MAGNESIUM HYDROXIDE SUSP 30 ML UDC PO PRN (21:20)
[2024-03-11] MEDS ORDERED: ONDANSETRON INJ 2 MG/ML 2 ML VIAL IV PRN (21:20)
[2024-03-11] MEDS: ROSUVASTATIN CALCIUM 20 MG TAB PO SCH (22:14)
[2024-03-11] MEDS: risperiDONE 0.5 MG TABLET PO SCH (22:14)
[2024-03-11] MEDS: FAMOTIDINE 20 MG TAB PO SCH (22:14)
[2024-03-11] MEDS: amLODIPine BESYLATE 5 MG TAB PO SCH (22:15)
[2024-03-11] MEDS: busPIRone 5 MG TAB PO SCH (22:15)
[2024-03-11] MEDS: carvediloL 6.25 MG TAB PO SCH (22:15)
[2024-03-11] MEDS: ACETAMINOPHEN 500 MG TAB PO SCH (22:17)
[2024-03-12] MEDS: HALOPERIDOL LACTATE 5 MG/ML 1 ML VIAL IM STA (03:39)
[2024-03-12] MEDS: LEVOTHYROXINE SODIUM 125 MCG TABLET PO SCH (05:32)
[2024-03-12 06:31] LABS: Hematocrit (blood only) 23.8 % (37.0-47.0); Mean Corpuscular Hemoglobin 30.7 pg (25.0-34.0); Mean Corpuscular Hgb Conc 33.6 g/dL (32.0-36.0); Mean Corpuscular Volume 91.2 fL (80.0-100.0); Mean Platelet Volume 10.2 fL (9.4-12.4); Platelet Count 197 K/uL (130-400); RDW Coefficient of Variation 13.8 % (11.5-14.5); RDW Standard Deviation 46.1 fL (36.4-46.3); Red Blood Count 2.61 M/uL (4.20-5.40); White Blood Count 10.55 K/ul (4.8-10.8)
--- NOTE | 2024-03-12 06:39 | Orthopedic Consultation ---
Date of Service March 12, 2024 Assessment & Plan (1) Closed fracture of neck of left femur: I spoke with her at bedside. Unfortunately she did not seem to comprehend what was going on. She was awfully sedated and a little bit delirious. She was not aware she had a hip fracture. We will discuss things with the family. She is currently NPO. Ultimately she will likely need a left hip hemiarthroplasty to return to ambulation. She is currently on the OR schedule for today. Her Plavix has been stopped. If her delirium is not expected to improve within a few days it is likely best we proceed with the cemented hip hemiarthroplasty to at least help with some pain control. History of Present Illness Reason for Consultation: Displaced left femoral neck fracture.. Requesting Physician: . Attending Physician: DO Madelyn Andrediallo is a pleasant 89-year-old female who was admitted to the hospital about 2 months ago. Unfortunately, she has been dealing with prolonged delirium since. Her mental status has not quite returned to normal. She resides at the half-way. She had an unwitnessed fall about 2 days ago. The family visited her yesterday and found her in a wheelchair kind of slumped over. She came to the emergency room and radiographs demonstrated a displaced left femoral neck fracture. She was admitted to the hospitalist service. Orthopedics was consulted to evaluate and treat. Allergies Allergy/AdvReac Type Severity Reaction Status Date / Time Sulfa (Sulfonamide Allergy Intermediate Rash Verified 03/06/24 08:45 Antibiotics) adhesive Allergy Mild rash Verified 03/06/24 08:45 enalaprilat [From Vasotec] Allergy Unknown Unknown Verified 03/06/24 08:45 atorvastatin AdvReac Severe Unconscious Verified 03/06/24 08:45 Home Medications Medication Instructions Recorded Confirmed Type acetaminophen 500 mg tablet 1,000 mg PO HS 02/03/24 03/11/24 History (Tylenol Extra Strength) amlodipine 5 mg tablet 5 mg PO BID 02/03/24 03/11/24 History carvedilol 6.25 mg tablet 6.25 mg PO BID 02/03/24 03/11/24 History cholecalciferol (vitamin D3) 50 50 mcg PO QAM 02/03/24 03/11/24 History mcg (2,000 unit) capsule (Vitamin D3) cyclosporine 0.05 % eye drops in a 1 drp OPB BID 02/03/24 03/11/24 History dropperette duloxetine 20 mg capsule,delayed 20 mg PO QAM 02/03/24 03/11/24 History release famotidine 20 mg tablet 20 mg PO BID 02/03/24 03/11/24 History fluorometholone 0.1 % eye 1 drp OPB QID 02/03/24 03/11/24 History drops,suspension furosemide 20 mg tablet 20 mg PO QAM 02/03/24 03/11/24 History levothyroxine 125 mcg tablet 125 mcg PO QAM 02/03/24 03/11/24 History melatonin 5 mg tablet 5 mg PO HS 02/03/24 03/11/24 History risperidone 0.5 mg tablet 0.5 mg PO HS 02/03/24 03/11/24 History vit C 250 mg-vit E 90 mg-zinc 40 1 tab PO BID 02/03/24 03/11/24 History mg-copper 1 [id number] capsule (PreserVision AREDS-2) clopidogrel 75 mg tablet 75 mg PO QAM 30 days #30 tabs 02/15/24 03/11/24 Rx acetaminophen 325 mg tablet 650 mg PO Q6 PRN Fever Or Pain 02/28/24 03/11/24 History multivitamin 1 tab PO QAM 02/28/24 03/11/24 History omega 2-anx-zka-fish oil 1,200 mg 1 cap PO QAM 02/28/24 03/11/24 History (144 mg-216 mg) capsule (Fish Oil) rosuvastatin 20 mg tablet 20 mg PO HS 02/28/24 03/11/24 History buspirone 10 mg tablet 10 mg PO TID 03/06/24 03/11/24 History sodium chloride 1,000 mg soluble 1,000 mg PO DAILY 03/06/24 03/11/24 History tablet peg 400 0.4 %-propylene glycol 1 drp OPB QID 03/11/24 03/11/24 History (PF) 0.3 % eye drops (Systane Ultra (PF)) Past Med/Surg History Problem List Delirium Acute hyponatremia (Acute) Elevated lactic acid level (Acute) Closed fracture of right pelvis (Acute) Closed fracture of neck of left femur (Acute) Acute UTI (urinary tract infection) (Acute) Fall from standing (Acute) Weakness (Acute) Combative behavior (Acute) Headache (Acute) Sundowning Dementia Acute respiratory failure with hypoxia Aspiration into airway Acute UTI (Acute) PATRICIA (acute kidney injury) (Acute) Sepsis UTI (urinary tract infection), uncomplicated Anxiety Forgetfulness Orthostatic hypotension dysautonomic syndrome Diarrhea Hyponatremia (Acute) Anemia Urinary incontinence Ambulatory dysfunction Hearing loss (Acute) General weakness Weight loss Poor balance Poor eyesight Right shoulder pain Tinea corporis GERD (gastroesophageal reflux disease) Pessary maintenance Dysphagia Peripheral edema Rectocele Insomnia Cystocele Recurrent falls Situational anxiety Pulmonary nodule (Chronic) Monoclonal gammopathy of undetermined significance (Chronic) Medical History TIA (transient ischemic attack) unspecified UTI (urinary tract infection) site not specified Localized edema Localized enlarged lymph nodes Nonrheumatic aortic (valve) stenosis Colon polyp Acute kidney failure Hypertensive chronic kidney disease with stage 1 through stage 4 chronic kidney disease, or unspecified chronic kidney disease Urinary retention Unspecified dementia, unspecified severity, without behavioral disturbance, psychotic disturbance, mood disturbance, and anxiety Delirium due to known physiological condition Transient ischemic attack (TIA) Anemia Hypertension Hypothyroidism Sjogren's syndrome Sprain of left ankle Sprain of left foot Hypertensive urgency Constipation Fall Hypomagnesemia Right elbow pain Dermatitis Neuropathy Left hand pain Cervical muscle strain Peripheral edema Insomnia Sensorineural hearing loss (SNHL) of both ears Memory changes Increased urinary frequency Aortic valve sclerosis Arteriosclerosis of carotid artery Benign neoplasm of colon Cervical lymphadenopathy Chronic hoarseness Mixed hyperlipidemia Osteoporosis Rotator cuff tear, left Unsteady gait Vocal cord paralysis Trigeminal neuralgia right Spinal stenosis Osteoarthritis IBS (irritable bowel syndrome) GERD (gastroesophageal reflux disease) Macular degeneration Claustrophobia Cardiac murmur Hyperlipidemia HX OF Surgical History Hx of arthroscopy of shoulder 2019, left History of lumpectomy History of hysterectomy History of bladder surgery BLADDER TACK History of total abdominal hysterectomy and bilateral salpingo-oophorectomy History of colonoscopy History of throat surgery THURNWALDT CYST BENIGN History of tooth extraction History of tonsillectomy History of adenoidectomy Family History Son Family history of diabetes mellitus Father Cancer Sister Cancer Breast cancer Heart disease H/O heart artery stent Mother Myocardial infarction Grandmother AAA (abdominal aortic aneurysm) Myocardial infarction Denies family history of Ovarian cancer Prostate cancer Colorectal cancer Social History Smoking Status: Never smoker Hx Alcohol Use: No Hx Substance Use: No Preferred Language: [place] Communication Ability: Impaired Communication Ability Comment: hard of hearing Visual Impairment: Limited Hearing Ability: Use of Hearing Aid Regulatory Submissions Specialist Required: No Beliefs That Will Affect Care: Mormonism marital status: / Current Living Situation: Correction Current Living Situation Comment: [facility] care resident current occupational status: retired How many Children do You have: 3 Other Information That Helps Us Care for You: No Feels Safe at Home: Yes Safety Concerns: Feels Safe At This Time Childhood Exposure to Second-Hand Smoke: No Diet: Soft caffeine: Yes during the past year weight has: remained stable Dental Care, Regularly: No Physical Activity Frequency: Does not Exercise Seatbelt Use: always Sunscreen Use: Yes Assistive Devices: Denture - Upper, Denture - Lower, Hearing Aid - Left and Wheelchair Review of Systems All systems reviewed & are unremarkable except as noted in HPI & below. Physical Exam On physical examination of the left hip, she seems to have some pain and grimacing with logroll of the hip. She has a pillow underneath her left knee.. Constitutional WD/WN, vitals as above Eyes PERRL, conjunctivae normal, anicteric sclerae ENMT external ear and nose normal, oropharynx normal Neck trachea midline, no thyromegaly Respiratory normal respiratory effort Cardiovascular RRR, no murmur, no edema Gastrointestinal (Abdomen) normal bowel sounds, soft, nontender, no hepatosplenomegaly Psychiatric A+Ox3, euthymic affect Results & Data Results & Data Laboratory Results . Diagnostic Findings X-rays and CT scan of the left hip show a displaced left femoral neck fracture.. PG Care Time/CCT Total # of Minutes Spent Total Time Spent with Patient: Total time spent is greater than 50% in coordination of care (as documented) at patient's floor/unit and/or counseling patient: Coding Level of Care Code 80292 IN/OBS CONSULT LVL 4,60M (57 - DECISION FOR SURGERY) Diagnoses Closed fracture of neck of left femur S72.002U
[2024-03-12 06:48] LABS: BUN Creatinine Ratio 25.5 (10-20); Calcium 8.5 mg/dl (8.6-10.3); Creatinine Clr Calc Pharmacy 18.9 ml/min; Est GFR (African American) 36.9 ml/min; Est GFR (Non-African American) 31.8 ml/min; Potassium 3.4 mmol/L (3.5-5.1)
--- NOTE | 2024-03-12 07:59 | Hospitalist Progress Note ---
Date of Service March 12, 2024 Assessment & Plan (1) Closed fracture of neck of left femur: Plan: diagnosed by CT of the left hip - scheduled to have left cement hemiarthroplasty today, following orthopedic surgery notes and recommendations - holding Plavix for procedure - NPO - Tylenol 1g TID prn for pain, Zofran prn for nausea Present on Admission?: Yes (2) Acute hypokalemia: Plan: was 4.3 yesterday, 3.4 today - replete K+: ordered 4 bags, 10mEg in 100mL q1H, 100cc/hr - continue monitoring levels Present on Admission?: No (3) Chronic hyponatremia: Plan: was 128 yesterday, 131 today - appears stable, continue monitoring levels Present on Admission?: Yes (4) Dementia: Plan: continue assessing for changes in mental status - risperidone 0.5mg PO QHS for - daily EKG for QT-prolonging agents, today [id number] - Fall precautions - continue home Buspirone 10mg and Cymbalta 20mg qAM Present on Admission?: Yes (5) History of TIA (transient ischemic attack): Plan: home meds include aspirin and Plavix, holding Plavix due to scheduled orthopedic surgery today - monitor for neurologic symptoms such as facial droop, speech changes, and motor deficits Present on Admission?: Yes (6) GERD (gastroesophageal reflux disease): Plan: continue Pepcid 20mg PO BID Admission and Anticipated Discharge Date Admission Date: March 11, 2024 Supervising Physician Co-Signing Physician Notes ATTESTATION I also saw the patient and confirmed carranza portions of the history and exam. I agree with the impression and plan in the resident documentation, and as summarized below. Patient sleepy but awakens to voice. No complaints of pain. No family in the room at present. EXAM 150/70, 90, 18, 37 C, SPO2 94 percent Skin [place], mucous membranes slightly dry Heart sounds regular with occasional ectopy Lungs clear with nonlabored respirations; bases are difficult to truly appreciate however. Abdomen soft; no tenderness appreciated DATA Labs Hemoglobin 8 Sodium 131, Potassium 3.4 BUN 37, creatinine 1.[address] scan done upon mission shows displaced left femoral neck fracture CT of the head showed no acute intracranial abnormality. Chest x-ray showed mild stable cardiomegaly Micro Urine culture collected upon admission shows no growth, preliminary. IMPRESSION & PLAN Left femur fracture Hyponatremia, acute on chronic, improving Delirium, with underlying dementia Anemia, chronic History of recent TIA Plan is for OR later today. Fortunately, no significant pain at present. Need to monitor serum sodium/CBC postop Plavix on hold surgery Additional per resident documentation Subjective Patient was seen this morning at bedside, was sleeping soundly. Overnight, around 3am patient was noted to be screaming and pulling at her lees, NC tubing, and ICDs - was given one time dose of Haldol 1mg IM, after which she calmed down and slept. Awoke to loud voice, not wearing hearing aids and unable to locate in room. Unable to gauge orientation due to poor hearing ability and/or mental status. Appearing groggy but not appearing in any distress. Attempts to speak but providers unable to understand specific words. Bruising seen on lateral left hip, not wearing any brace or support. Review of Systems Review of Systems: All systems reviewed & are unremarkable except as noted in HPI & below Physical Exam Constitutional: WD/WN, vitals as above well developed, + thin and + altered mental status Eyes: PERRL, conjunctivae normal, anicteric sclerae ENMT: Ears: + hearing impairment tongue dry on appearance Neck: trachea midline, no thyromegaly normal visual inspection Respiratory: normal respiratory effort, lungs clear to auscultation Cardiovascular: Rate/Rhythm: regular rate Heart Sounds: + murmur on chest auscultation, holosystolic murmur in all 4 valve areas rhythm possibly irregular on auscultation pulses: 2+ radial b/l, 2+ femoral b/l, 2+ posterior tibial b/l Gastrointestinal (Abdomen): normal bowel sounds, soft, nontender, no hepatosplenomegaly Musculoskeletal: Hip: + ecchymosis 5x5cm area of ecchymosis lateral left hi p, no gross deformity or skin breaks on visual inspection - unable to assess movement or strength due to patient's poor hearing or AMS Skin: no rashes, warm and dry Neurologic: eyes open to loud voice, intermittent eye contact otherwise unable to assess due to mental status and/or poor hearing Psychiatric: unable to gauge orientation due to impaired hearing and/or mental status Results & Data Results & Data Vital Signs (Past 12 Hours) Vital Signs Temp Pulse Pulse Pulse Resp BP BP 03/11/24 21:10 03/11/24 21:10 37.1 C 98 H 16 148/71 H 03/11/24 20:58 85 18 134/88 03/11/24 20:00 89 18 148/74 H Pulse Ox O2 Del Method O2 Flow Rate 03/11/24 21:10 Nasal Cannula 2 03/11/24 21:10 94 Room Air 03/11/24 20:58 92 Room Air 03/11/24 20:00 91 Room Air Diagnostic Findings Head CT 03/11/24 17:[address] DOSE: HISTORY: altered mental status s/p fall TECHNIQUE: Multiaxial CT images of the head were performed without the use of intravenous contrast. Automated exposure control was utilized for this study. A dose lowering technique was utilized adhering to the principles of ALARA. Comparison: Head CT 03/06/2024. Findings: The paranasal sinuses and mastoid air cells are clear. The calvarium and skull base are intact. There is no mass, hematoma, midline shift, acute infarct. White matter hypodensity is nonspecific but suggestive of microvascular ischemic change. The ventricles and sulci demonstrate mild age-related involutional changes. Impression: No acute intracranial abnormality. Left posterior scalp swelling. Electronically signed by: Lee Rose M.D. 03/11/2024 5:[address] 03/11/24 17:41 CT pelvis wo con, CT hip LT wo con CT DOSE: 402.83 mGy.cm CLINICAL HISTORY: L hip pain s/p fall TECHNIQUE: Multiaxial CT images of the pelvis and left hip were performed without contrast and reformatted in the sagittal and coronal planes. A dose lowering technique was utilized adhering to the principles of ALARA. COMPARISON STUDY: Pelvis radiograph 03/11/2024. FINDINGS: There is a displaced, angulated, and mildly impacted left subcapital femoral neck fracture. There is up to 2.5 cm of superior displacement of the femoral neck and relation to the femoral head. No dislocation. There is also a small nondisplaced fracture within the right sacral wing adjacent to the sacroiliac joint. No pelvic hematoma identified. No pelvic free fluid. A pessary device is noted. The bladder is decompressed by a Lees catheter. Colonic diverticulosis. Moderate fecal retention. IMPRESSION: 1. Displaced subcapital left femoral neck fracture. No dislocation. 2. Small nondisplaced right sacral ala fracture. Resident Activity Tracking Resident Involvement: Resident Care Provided Care Provided: Adult Hospital Medicine (1) Closed fracture of neck of left femur Encounter type: initial encounter Qualified Code(s): S72.002A - Fracture of unspecified part of neck of left femur, initial encounter for closed fracture (4) Dementia Dementia behavioral or psychological symptom: with agitation Dementia severity: unspecified severity Dementia type: unspecified type Qualified Code(s): F03.911 - Unspecified dementia, unspecified severity, with agitation (6) GERD (gastroesophageal reflux disease) Esophagitis presence: esophagitis presence not specified Qualified Code(s): K21.9 - Gastro-esophageal reflux disease without esophagitis
[2024-03-12] MEDS: POTASSIUM CHLORIDE / WTR 10 MEQ/100 ML PLCT IV SCH (09:41)
[2024-03-12] MEDS: DULoxetine HCL 20 MG CAP PO SCH (09:42)
[2024-03-12] MEDS: SODIUM CHLORIDE 1 GM TABLET PO SCH (09:42)
--- NOTE | 2024-03-12 10:35 | Anesthesiology Consultation ---
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 History Surgery Operation Date: 03/12/24 09:40 Proposed Procedures p Left Cemented Hemiarthroplasty - Fco Santillan MD Height/Weight Height: 5 ft Weight: 48 kg Allergies Allergy/AdvReac Type Severity Reaction Status Date / Time Sulfa (Sulfonamide Allergy Intermediate Rash Verified 03/06/24 08:45 Antibiotics) adhesive Allergy Mild rash Verified 03/06/24 08:45 enalaprilat [From Vasotec] Allergy Unknown Unknown Verified 03/06/24 08:45 atorvastatin AdvReac Severe Unconscious Verified 03/06/24 08:45 Medications Home Medications Medication Instructions Recorded Confirmed Last Taken acetaminophen 500 mg tablet 1,000 mg PO HS 02/03/24 03/11/24 03/05/24 (Tylenol Extra Strength) amlodipine 5 mg tablet 5 mg PO BID 02/03/24 03/11/24 03/05/24 20:00 carvedilol 6.25 mg tablet 6.25 mg PO BID 02/03/24 03/11/24 03/05/24 20:00 cholecalciferol (vitamin D3) 50 50 mcg PO QAM 02/03/24 03/11/24 03/06/24 mcg (2,000 unit) capsule (Vitamin D3) cyclosporine 0.05 % eye drops in a 1 drp OPB BID 02/03/24 03/11/24 03/05/24 dropperette duloxetine 20 mg capsule,delayed 20 mg PO QAM 02/03/24 03/11/24 03/05/24 release famotidine 20 mg tablet 20 mg PO BID 02/03/24 03/11/24 03/05/24 fluorometholone 0.1 % eye 1 drp OPB QID 02/03/24 03/11/24 03/06/24 16:00 drops,suspension furosemide 20 mg tablet 20 mg PO QAM 02/03/24 03/11/24 03/05/24 levothyroxine 125 mcg tablet 125 mcg PO QAM 02/03/24 03/11/24 03/06/24 melatonin 5 mg tablet 5 mg PO HS 02/03/24 03/11/24 03/05/24 risperidone 0.5 mg tablet 0.5 mg PO HS 02/03/24 03/11/24 03/05/24 vit C 250 mg-vit E 90 mg-zinc 40 1 tab PO BID 02/03/24 03/11/24 03/05/24 mg-copper 1 [id number]-kafaqw capsule (PreserVision AREDS-2) clopidogrel 75 mg tablet 75 mg PO QAM 30 days #30 tabs 02/15/24 03/11/24 03/05/24 08:00 acetaminophen 325 mg tablet 650 mg PO Q6 PRN Fever Or Pain 02/28/24 03/11/24 03/01/24 multivitamin 1 tab PO QAM 02/28/24 03/11/24 03/05/24 omega 8-jnb-ipt-fish oil 1,200 mg 1 cap PO QAM 02/28/24 03/11/24 03/05/24 (144 mg-216 mg) capsule (Fish Oil) rosuvastatin 20 mg tablet 20 mg PO HS 02/28/24 03/11/24 03/05/24 buspirone 10 mg tablet 10 mg PO TID 03/06/24 03/11/24 03/05/24 sodium chloride 1,000 mg soluble 1,000 mg PO DAILY 03/06/24 03/11/24 03/05/24 tablet peg 400 0.4 %-propylene glycol 1 drp OPB QID 03/11/24 03/11/24 Unknown (PF) 0.3 % eye drops (Systane Ultra (PF)) Active Medications Generic Name Dose Route Start Last Admin Trade Name Freq PRN Reason Stop Dose Admin Acetaminophen 1,000 mg 03/11/24 22:00 03/12/24 05:32 Acetaminophen 500 Mg Tab PO 04/10/24 21:59 1,000 mg Q8H ROHIT Administration Amlodipine Besylate 5 mg 03/11/24 21:20 03/12/24 09:42 Amlodipine Besylate 5 Mg Tab PO 04/10/24 21:19 5 mg BID ROHIT Administration Buspirone HCl 10 mg 03/11/24 21:20 03/12/24 09:42 Buspirone 5 Mg Tab PO 04/10/24 21:19 10 mg TID ROHIT Administration Carvedilol 6.25 mg 03/11/24 21:20 03/12/24 09:42 Carvedilol 6.25 Mg Tab PO 04/10/24 21:19 6.25 mg BID ROHIT Administration Duloxetine HCl 20 mg 03/12/24 09:00 03/12/24 09:42 Duloxetine Hcl 20 Mg Cap PO 04/11/24 08:59 20 mg QAM ROHIT Administration Famotidine 20 mg 03/11/24 21:20 03/11/24 22:14 Famotidine 20 Mg Tab PO 04/10/24 21:19 20 mg HS ROHIT Administration Potassium Chloride 10 meq in 100 mls @ 100 mls/hr 03/12/24 08:00 03/12/24 10:34 K Johny / Wtr IV 03/12/24 11:59 100 mls/hr Q1H ROHIT Administration Levothyroxine Sodium 125 mcg 03/12/24 06:30 03/12/24 05:32 Levothyroxine Sodium 125 Mcg Tablet PO 04/11/24 06:29 125 mcg DAILYBB ROHIT Administration Risperidone 0.5 mg 03/11/24 21:20 03/11/24 22:14 Risperidone 0.5 Mg Tablet PO 04/10/24 21:19 0.5 mg HS ROHIT Administration Rosuvastatin Calcium 20 mg 03/11/24 21:20 03/11/24 22:14 Rosuvastatin Calcium 20 Mg Tab PO 04/10/24 21:19 20 mg HS ROHIT Administration Sodium Chloride 1 gm 03/12/24 09:00 03/12/24 09:42 Sodium Chloride 1 Gm Tablet PO 04/11/24 08:59 1 gm DAILY ORHIT Administration Past Medical History Medical History TIA (transient ischemic attack) unspecified UTI (urinary tract infection) site not specified Localized edema Localized enlarged lymph nodes Nonrheumatic aortic (valve) stenosis Colon polyp Acute kidney failure Hypertensive chronic kidney disease with stage 1 through stage 4 chronic kidney disease, or unspecified chronic kidney disease Urinary retention Unspecified dementia, unspecified severity, without behavioral disturbance, psychotic disturbance, mood disturbance, and anxiety Delirium due to known physiological condition Transient ischemic attack (TIA) Anemia Hypertension Hypothyroidism Sjogren's syndrome Sprain of left ankle Sprain of left foot Hypertensive urgency Constipation Fall Hypomagnesemia Right elbow pain Dermatitis Neuropathy Left hand pain Cervical muscle strain Peripheral edema Insomnia Sensorineural hearing loss (SNHL) of both ears Memory changes Increased urinary frequency Aortic valve sclerosis Arteriosclerosis of carotid artery Benign neoplasm of colon Cervical lymphadenopathy Chronic hoarseness Mixed hyperlipidemia Osteoporosis Rotator cuff tear, left Unsteady gait Vocal cord paralysis Trigeminal neuralgia right Spinal stenosis Osteoarthritis IBS (irritable bowel syndrome) GERD (gastroesophageal reflux disease) Macular degeneration Claustrophobia Cardiac murmur Hyperlipidemia HX OF Past Family History Family History Son Family history of diabetes mellitus Father Cancer Sister Cancer Breast cancer Heart disease H/O heart artery stent Mother Myocardial infarction Grandmother AAA (abdominal aortic aneurysm) Myocardial infarction Denies family history of Ovarian cancer Prostate cancer Colorectal cancer Past Surgical History Surgical History Hx of arthroscopy of shoulder 2019, left History of lumpectomy History of hysterectomy History of bladder surgery BLADDER TACK History of total abdominal hysterectomy and bilateral salpingo-oophorectomy History of colonoscopy History of throat surgery THURNWALDT CYST BENIGN History of tooth extraction History of tonsillectomy History of adenoidectomy Social History Smoking Status: Never smoker Hx Alcohol Use: No Alcohol type: wine alcohol intake frequency: holidays/special occasions only Hx Substance Use: No substance use type: does not use Physical Exam Vital Signs Last Vital Signs Temp 98.8 F 03/11/24 21:10 Pulse 98 H 03/11/24 21:10 Resp 16 03/11/24 21:10 BP 148/71 H 03/11/24 21:10 Pulse Ox 94 03/12/24 09:00 O2 Del Method Room Air 03/12/24 09:00 O2 Flow Rate 2 03/11/24 21:10 Testing Laboratory Results 03/12/24 05:51 03/12/24 05:51 PT 10.4 Seconds (9.0-12.0) 03/11/24 17:20 INR 1.0 (0.9-1.1) 03/11/24 17:20 Urine Color Yellow 03/11/24 18:00 Urine Appearance Cloudy (Clear) A 03/11/24 18:00 Urine pH 6.0 (4.5-7.5) 03/11/24 18:00 Ur Specific [place] 1.020 (1.000-1.030) 03/11/24 18:00 Urine Protein 4+ (Negative) H 03/11/24 18:00 Urine Glucose (UA) Negative (Negative) 03/11/24 18:00 Urine Ketones Negative (Negative) 03/11/24 18:00 Urine Nitrite Negative (Negative) 03/11/24 18:00 Ur Leukocyte Esterase 2+ (Negative) H 03/11/24 18:00 Urine WBC (Auto) 11-20 /hpf (0-5) H 03/11/24 18:00 Urine RBC (Auto) >20 /hpf (0-2) H 03/11/24 18:00 U Hyaline Cast (Auto) >20 /lpf (0-2) H 03/11/24 18:00 U Epithel Cells (Auto) 3-5 /hpf (0-2) H 03/11/24 18:00 Urine Bacteria (Auto) None Seen (None Seen) 03/11/24 18:00 Electrocardiogram Date: 03/11/24 SR with premature supraventricular complexes and fusion complexes, rate 91 bpm Right atrial enlargement Incomplete RBBB Nonspecific ST and T wave abnormality Chest X-Ray Date: 03/11/24 IMPRESSION: Stable mild cardiomegaly. Otherwise, no acute process within the chest. Echocardiogram Date: 01/20/24 LV systolic function is normal No regional wall motion abnormalities Mild concentric LVH LV EF 65-70% Mild TR
--- NOTE | 2024-03-12 12:15 | History & Physical Bridge Note ---
Date of Service March 12, 2024 History & Physical Bridge Note I have examined the patient, reviewed the History & Physical and in the interval since the performance of the History & Physical I have noted the following changes of clinical significance: no changes noted
[2024-03-12] MEDS ORDERED: fentaNYL citrate PF 100 MCG/2 ML VIAL IV PRN (12:20)
[2024-03-12] MEDS ORDERED: ONDANSETRON INJ 2 MG/ML 2 ML VIAL IV PRN (12:20)
[2024-03-12] MEDS ORDERED: ATROPINE SULFATE 0.1 MG/ML 10ML SYR IV PRN (12:20)
[2024-03-12] MEDS ORDERED: ePHEDrine sulfate 50 MG/ML AMP IV PRN (12:20)
[2024-03-12] MEDS ORDERED: ONDANSETRON INJ 2 MG/ML 2 ML VIAL ONE (12:22)
[2024-03-12] MEDS ORDERED: fentaNYL citrate PF 100 MCG/2 ML VIAL ONE (12:22)
[2024-03-12] MEDS ORDERED: PROPOFOL IV EMULSION 10 MG/ML 20 ML VIAL IV ONE (12:22)
[2024-03-12] MEDS ORDERED: LIDOCAINE 2% 2 ML VIAL/AMP(20MG/ML) INFIL ONE (12:22)
[2024-03-12] MEDS: ceFAZolin 1000MG 1,000 MG/7.5 ML SYR IV ONE (12:28)
[2024-03-12] MEDS: LACTATED RINGER'S 1,000 ML IV SCH (12:47)
[2024-03-12] MEDS ORDERED: ceFAZolin 330 MG/ML 1 GM VIAL ONE (13:27)
[2024-03-12] MEDS ORDERED: ROCURONIUM BROMIDE 10 MG/ML 5 ML VIAL IV ONE (13:35)
[2024-03-12] MEDS ORDERED: SUGAMMADEX SODIUM 200 MG/2 ML VIAL IV ONE (13:36)
[2024-03-12] MEDS: BUPIVACAINE/EPINEPHRINE 0.5% MPF 1:200,000 30 ML VIAL ONE (13:48)
--- NOTE | 2024-03-12 14:44 | Operative Report ---
PG Post Operative Report Pre & Post Diagnosis Operation Date: 03/12/24 09:40 Pre-Op Diagnosis: Left displaced femoral neck/HIP FRACTURE Post-Op Diagnosis: LEFT DISPLACED FEMORAL NECK/HIP FRACTURE I identified the patient and participated in the time-out.: Yes Procedure Operation Date: 03/12/24 09:40 Actual Procedures p Left Cemented Hemiarthroplasty(Left) - Fco Santillan MD Surgeon Fco Santillan MD Regional Agronomist BETO Wilkerson Estimated Blood Loss 100 Findings Consistent with Post-Op Diagnosis Specimens Left femoral head sent for pathology. Anesthesia Type General Complications none Disposition Accompanied Patient To Recovery: No Indications Patient is an 89-year-old female with multiple medical comorbidities who sustained a fall several days ago. She could not ambulate. They had brought the emergency room x-rays of the displaced femoral neck fracture. She was admitted by the hospitalist service, medically optimized, and indicated for surgical management. Description of Procedure Operative implants consist of: 1. DePuy Wyatt size 2 standard cemented femoral stem. 2. 10 mm centralizer. 3. Small cement restrictor. 4. +5/28 mm articular ball with 46 mm bipolar shell and liner. The patient was taken the op room, identified, placed on the operating table in the supine position. All contact areas were appropriately padded. IV antibiotics were provided by the anesthesia team. We did get an additional gram of Ancef patient been given some Rocephin on the floor. A general anesthetic was implemented. The patient was then placed in the right lateral decubitus position. An axillary roll was placed. A stool Birkett position was used for positioning. The left hip and leg were then prepped and draped in usual sterile fashion. A posterior lateral approach to the left hip was then performed to a curvilinear incision centered over the greater trochanter. Sharp dissection Through subcutaneous tissue down to level the IT band and gluteal fascia. The IT band gluteal fascia incised longitudinally in line with skin incision. The underlying greater trochanteric bursa was extremely hemorrhagic and excised. The piriformis and external rotators as well as the posterior aspect of the hip joint capsule were released and the posterior aspect of the hip as a single layer. I then teed the capsule and tagged each side for later repair. The hip was internally rotated. A femoral neck osteotomy cut was made just above the fracture site. The femoral neck was removed. The femur was retracted anteriorly. The femoral head was removed. The acetabulum sized to a size 46. Attention drawn back to the femur. The proximal femur was entered with cookie-cutter followed by canal finder and lateralizing reamer. I then broached beginning with size 1 progressing to a 2. Pretty good fit with a 2. We trialed the hip and the plus fiber to promote provide a total stability and 1. Equal soft tissue tension and leg lengths. There were elected places implants. All trial implants were removed. The wound was irrigated extensively. The small cement restrictor was placed. A double batch Palacos G cement was mixed and injected in the canal. A size to the Wyatt cemented femoral stem was then placed with a centralizer. Once the cement hardened a +5/20 mm articular ball with a 46 mm bipolar shell liner was placed. Hip was located. I then repaired the posterior capsule with #2 Tycron suture. I irrigated the wound extensively. I did inject locally with about 40 cc of half percent Marcaine with epinephrine. The IT band and gluteal fascia was then closed with #1 PDS suture in running fashion the subcutaneous tissue was then closed with 2 layers with a deep layer #1 Vicryl suture subcutaneous tissue with 2-0 Dexon suture in a buried interrupted fashion. Skin was then closed with skin timmy. Leg was then cleaned and dried and a sterile dressing of Xeroform, 4 x 4's, ABD pad and foam tape was applied. The patient then right gel incision transferred to the recovery room in stable condition. Patient tolerated procedure well and there were no complications. Aiden Wilkerson, my physician fiscal assistant, was present for the entire procedure. His assistance was essential and required for appropriate patient positioning, prepping and draping, surgical exposure, performing the technical details of the operation, placement the implants, closure of the wound, and placement of the sterile bandage. I attest to the content of the Intraoperative Record and any orders documented therein. Any exceptions are noted below.
--- NOTE | 2024-03-12 15:24 | Anesthesiology Progress Note ---
Date of Service March 12, 2024 Anesthesia Post Procedure Vital Signs Vital Signs: Temp Pulse Pulse Pulse Resp BP BP 03/12/24 15:05 73 15 130/52 L 03/12/24 14:55 69 15 137/56 L 03/12/24 14:45 71 13 134/52 L 03/12/24 14:35 98.2 F 64 18 118/49 L 03/12/24 12:32 98.6 F 90 18 150/70 H 03/12/24 09:00 03/12/24 07:20 03/11/24 21:10 03/11/24 21:10 98.8 F 98 H 16 148/71 H 03/11/24 20:58 85 18 134/88 03/11/24 20:00 89 18 148/74 H 03/11/24 19:42 93 H 18 101/71 03/11/24 19:33 93 H 18 101/71 03/11/24 18:42 96 H 18 03/11/24 18:30 142/80 H 03/11/24 18:21 114 H 18 03/11/24 18:10 151/67 H 03/11/24 18:03 89 03/11/24 18:00 84 20 118/74 03/11/24 17:51 95 H 20 156/78 H 03/11/24 17:17 98.2 F 86 20 157/96 H 03/11/24 17:17 89 18 157/96 H 03/11/24 16:57 97.7 F 91 H 20 147/72 H Pulse Ox Pulse Ox O2 Del Method O2 Del Method O2 Flow Rate 03/12/24 15:05 97 Oxymask 3 03/12/24 14:55 100 Oxymask 3 03/12/24 14:45 100 Oxymask 5 03/12/24 14:35 100 Oxymask 5 03/12/24 12:32 89 L Nasal Cannula 2 03/12/24 09:00 94 Room Air 03/12/24 07:20 Nasal Cannula 2 03/11/24 21:10 Nasal Cannula 2 03/11/24 21:10 94 Room Air 03/11/24 20:58 92 Room Air 03/11/24 20:00 91 Room Air 03/11/24 19:42 93 Room Air 03/11/24 19:33 92 Room Air 03/11/24 18:42 93 Room Air 03/11/24 18:30 03/11/24 18:21 93 Room Air 03/11/24 18:10 03/11/24 18:03 03/11/24 18:00 94 Room Air 03/11/24 17:51 96 Room Air 03/11/24 17:17 98 Room Air 03/11/24 17:17 96 Room Air 03/11/24 16:57 97 Room Air Pain Intensity Left Hip: Pain Intensity: 5 Transfer of Care Handoff Completed per policy Notes Mental Status: alert / awake / arousable and participated in evaluation Patient Amnestic to Procedure: Yes Nausea / Vomiting: adequately controlled Pain: adequately controlled Airway Patency, RR, SpO2: stable & adequate BP & HR: stable & adequate Hydration State: stable & adequate Anesthetic Complications: no major complications apparent and Pt Satisfied with anesthetic care
--- NOTE | 2024-03-12 16:08 | Electrocardiogram Report ---
Test Reason : Blood Pressure : */* mmHG Vent. Rate : 91 BPM Atrial Rate : 91 BPM P-R Int : 180 ms QRS Dur : 116 ms QT Int : 392 ms P-R-T Axes : 56 55 65 degrees QTcB Int : 482 ms Sinus rhythm with Premature supraventricular complexes Right atrial enlargement Right bundle branch block Nonspecific ST and T wave abnormality Abnormal ECG When compared with ECG of 06-Mar-2024 17:23, Fusion complexes are now Present Premature supraventricular complexes are now Present Confirmed by Jean Claude Jones ([id number]) on 03/12/2024 4:08:09 PM Referred By: [facility] Confirmed By: Jean Claude Jones
[2024-03-12] MEDS: SODIUM CHLORIDE 0.9% 1,000 ML IV SCH (16:16)
--- NOTE | 2024-03-12 19:24 | XRay Report ---
XR hip LT min 2V CLINICAL HISTORY: Post-Operative implant position TECHNIQUE: 2 views of the left hip and single frontal view of the pelvis were obtained. Comparison: Comparison is made to pelvis radiograph 03/11/2024 FINDINGS: Patient is status post total hip arthroplasty with expected postsurgical changes including soft tissu e swelling and subcutaneous emphysema. IMPRESSION: Expected postoperative appearance status post placement of total hip arthroplasty. ACT 112: Negative or not required by law. Electronically signed by: Christopher Oconnell M.D. 03/12/2024 7:22 PM
[2024-03-12] MEDS: cefTRIAXone SODIUM 1,000 MG/50 ML BAG IV SCH (20:20)
[2024-03-12] MEDS: fentaNYL citrate PF 100 MCG/2 ML VIAL IV ONE (23:41)
[2024-03-13] MEDS: HYDROmorphone INJ 0.5 MG/0.5 ML SYR IV STA (00:03)
[2024-03-13 08:32] LABS: BUN Creatinine Ratio 21.2 (10-20); Calcium 7.8 mg/dl (8.6-10.3); Creatinine Clr Calc Pharmacy 18.1 ml/min; Est GFR (African American) 35.1 ml/min; Est GFR (Non-African American) 30.3 ml/min; Potassium 4.3 mmol/L (3.5-5.1)
[2024-03-13 08:40] LABS: Hemoglobin 6.8 g/dl (12.0-16.0); Mean Corpuscular Hemoglobin 30.8 pg (25.0-34.0); Mean Corpuscular Hgb Conc 32.4 g/dL (32.0-36.0); Mean Platelet Volume 10.3 fL (9.4-12.4); Platelet Count 159 K/uL (130-400); RDW Coefficient of Variation 14.4 % (11.5-14.5); Red Blood Count 2.21 M/uL (4.20-5.40); White Blood Count 8.19 K/ul (4.8-10.8)
[2024-03-13 09:08] LABS: Basophils # (auto) 0.03 K/uL (0.00-0.20); Basophils % (auto) 0.4 %; Eosinophils # (auto) 0.47 K/uL (0.00-0.50); Eosinophils % (auto) 5.7 %; Immature Granulocytes # (auto) 0.05 K/uL (0.01-0.20); Immature Granulocytes % (auto) 0.6 %; Lymphocytes # (auto) 1.03 K/uL (1.20-3.40); Lymphocytes % (auto) 12.6 %; Monocytes # (auto) 0.79 K/uL (0.11-0.59); Monocytes % (auto) 9.6 %; Neutrophils # (auto) 5.82 K/uL (1.40-6.50); Neutrophils % (auto) 71.1 %; RBC Morphology Unremarkable
[2024-03-13 12:07] LABS: Hematocrit (blood only) 23.2 % (37.0-47.0); Hemoglobin 7.4 g/dl (12.0-16.0)
--- NOTE | 2024-03-13 12:59 | Orthopedic Progress Note ---
Date of Service March 13, 2024 Assessment & Plan (1) Closed fracture of neck of left femur: Plan: 89-year-old female with multiple medical comorbidities now postop day 1 from left cemented bipolar hip arthroplasty for fracture. Worst degrees she seems to be doing okay. Very hard of hearing and difficult to communicate with. She looks comfortable. Plan: 1. DVT prophylaxis including Thiede anjus, SCDs, back on her Plavix at 24 hours postop. 2. PT/OT. She can fully weight-bear as tolerated. Does [employer] hip precautions. 3. Pain control. Seems a relatively pain-free. Stick to Tylenol for pain. Avoid narcotics. 4. Medical management as per the medicine service. 5. Disposition. She is okay for discharge anytime medically stable. I need to see her back 2 to 3 weeks out from surgery date. Any orthopedic questions can direct me at [phone]. Admission and Anticipated Discharge Date Admission Date: March 11, 2024 Subjective 89-year-old female postop day 1 from a left cemented bipolar hip arthroplasty fracture. She appears to be resting comfortably in bed. Very hard of hearing. Difficult to communicate with. She looks to be resting comfortably. Difficulty following commands. Physical Exam Physical Exam: Physical examination reveals an elderly frail cachectic female is lying in bed. She looks comfortable. Examination of the hip reveals the dressing clean dry and intact. Leg lengths appear equal. She spontaneously moves her leg. Results & Data Vital Signs (Past 12 Hours) Vital Signs Temp Pulse Resp BP Pulse Ox O2 Del Method O2 Flow Rate 03/13/24 07:30 36.9 C 86 20 137/56 L 98 Nasal Cannula 1.5 03/13/24 03:29 36.4 C L 86 18 138/56 L 98 Oxymask 2 Laboratory Results Hemoglobin is 7.4. Hematocrit is 23.2. Creatinine 1.51 (1) Closed fracture of neck of left femur Encounter type: initial encounter Qualified Code(s): S72.002A - Fracture of unspecified part of neck of left femur, initial encounter for closed fracture
--- NOTE | 2024-03-13 15:32 | Communication Note ---
Date of Service: March 13, 2024 ATTESTATION I also saw the patient and confirmed carranza portions of the history and exam. I agree with the impression and plan in the resident documentation. The patient is seen this morning. She is fairly sleepy. Looks like she got some pain medication last night. She does answer questions appropriately. Denies pain. EXAM 157/80, 91, 20, 36.9, 97% on nasal cannula 2 L/min Heart sounds regular with occasional ectopy Lungs clear with nonlabored respirations DATA Labs Hemoglobin 7.4 Sodium 135, potassium 4.3, BUN 32, creatinine 1.51 Micro Urine culture collected upon admission shows no growth. IMPRESSION & PLAN Left femur fracture, Status post repair, Postoperative day #1 Hyponatremia, acute on chronic, improving Delirium, with underlying dementia Anemia, chronic History of recent TIA Pain seems well-controlled, will try to utilize Tylenol over opiates Need to monitor serum sodium/CBC postop Plavix on hold at the moment Additional per resident documentation
[2024-03-13] MEDS: CLOPIDOGREL BISULFATE 75 MG TAB PO SCH (16:26)
--- NOTE | 2024-03-13 17:58 | Hospitalist Progress Note ---
Date of Service March 13, 2024 Assessment & Plan (1) Closed fracture of neck of left femur: Plan: due to unwitnessed fall, diagnosed by CT of the left hip - Left cement hemiarthroplasty yesterday, procedure successful per orthopedic surgery notes - hemoglobin, hematocrit decreasing post-procedure: - following orthopedics notes and recommendations - continue holding Plavix for now - NPO - Tylenol 1g TID prn for pain and fever, Zofran prn for nausea - received Tylenol 1g around 4:30pm for fever to 100.8 - NS started, 100cc/hr Present on Admission?: Yes (2) Acute hypokalemia: Plan: resolved: 4.3 today, up from 3.4 yesterday - K+ repletion 10mEg in 100mL q1H, 100cc/hr; has been discontinued - continue monitoring levels (3) Chronic hyponatremia: Plan: was 131 yesterday, 135 today - appears stable, continue monitoring levels (4) Dementia: Plan: continue assessing for changes in mental status - risperidone 0.5mg PO QHS for - daily EKG for QT-prolonging agents, today [id number] - Fall precautions - continue home Buspirone 10mg and Cymbalta 20mg qAM (5) History of TIA (transient ischemic attack): Plan: home meds include aspirin and Plavix, holding Plavix due to scheduled orthopedic surgery today - monitor for neurologic symptoms such as facial droop, speech changes, and motor deficits (6) GERD (gastroesophageal reflux disease): Plan: continue Pepcid 20mg PO BID Admission and Anticipated Discharge Date Admission Date: March 11, 2024 Supervising Physician Co-Signing Physician Notes Please see my attestation in the communication note of the same date. Subjective 89-year-old female postop day 1 from a left cemented bipolar hip arthroplasty due to L femoral neck fracture from unwitnessed fall. This morning and afternoon, patient appeared to be resting comfortably in bed, very hard of hearing. In the morning, patient was unable to open her eyes or give any intelligible response to asking how she was feeling or gauging pain level. This afternoon, was still resting comfortably with eyes closed but opened eyes slightly when asked to do so, and was able to communicate that she wasn't in any pain. This evening having fever to 100.8, given Tylenol 1g around 4:30pm. Review of Systems Review of Systems: Unobtainable due to cognitive status Physical Exam Constitutional: WD/WN, vitals as above well developed, + thin and + altered mental status ENMT: Ears: + hearing impairment Neck: trachea midline, no thyromegaly normal visual inspection Respiratory: normal respiratory effort, lungs clear to auscultation Cardiovascular: RRR, no murmur, no edema Rate/Rhythm: regular rate Extremities: normal capillary refill pulses: radial 2+ b/l, femoral 2+ b/l, posterior tibial 2+ b/l Gastrointestinal (Abdomen): normal bowel sounds, soft, nontender, no hepatosplenomegaly Musculoskeletal: Hip: + ecchymosis ecchymosis to L hip yesterday, today pad with adhesive to L hip which was applied post-procedure Skin: no rashes, warm and dry Results & Data Results & Data Vital Signs (Past 12 Hours) Vital Signs Temp Pulse Resp BP Pulse Ox O2 Del Method O2 Flow Rate 03/13/24 15:05 36.9 C 91 H 20 157/80 H 97 Nasal Cannula 2 03/13/24 07:30 36.9 C 86 20 137/56 L 98 Nasal Cannula 1.5 Resident Activity Tracking Resident Involvement: Resident Care Provided Care Provided: Adult Hospital Medicine (1) Closed fracture of neck of left femur Encounter type: initial encounter Qualified Code(s): S72.002A - Fracture of unspecified part of neck of left femur, initial encounter for closed fracture (4) Dementia Dementia behavioral or psychological symptom: with agitation Dementia severity: unspecified severity Dementia type: unspecified type Qualified Code(s): F03.911 - Unspecified dementia, unspecified severity, with agitation (6) GERD (gastroesophageal reflux disease) Esophagitis presence: esophagitis presence not specified Qualified Code(s): K21.9 - Gastro-esophageal reflux disease without esophagitis
[2024-03-13] MEDS: SODIUM CHLORIDE 0.9% 1,000 ML IV SCH (18:43)
[2024-03-13] MEDS: POLYETHYLENE (MIRALAX) 17 GM PACK PO PRN (20:23)
[2024-03-13] MEDS: MELATONIN 3 MG TAB PO PRN (21:55)
[2024-03-14 07:00] LABS: Hematocrit (blood only) 22.1 % (37.0-47.0); Hemoglobin 6.8 g/dl (12.0-16.0); Mean Corpuscular Hemoglobin 29.8 pg (25.0-34.0); Mean Corpuscular Hgb Conc 30.8 g/dL (32.0-36.0); Mean Corpuscular Volume 96.9 fL (80.0-100.0); Platelet Count 164 K/uL (130-400); RDW Coefficient of Variation 14.4 % (11.5-14.5); RDW Standard Deviation 50.7 fL (36.4-46.3); Red Blood Count 2.28 M/uL (4.20-5.40)
[2024-03-14 07:26] LABS: Calcium 7.9 mg/dl (8.6-10.3); Potassium 3.9 mmol/L (3.5-5.1)
--- NOTE | 2024-03-14 07:30 | Orthopedic Progress Note ---
Date of Service March 14, 2024 Assessment & Plan (1) Closed fracture of neck of left femur: Plan: 89-year-old female with multiple medical comorbidities now postop day 2 from left cemented bipolar hip arthroplasty for fracture. Orthopedically she seems to be doing well. Little difficult to communicate with due to her poor hearing and dementia. Her hips located. She appears neurologically intact. No major bleeding from the orthopedic site. She is anemic with underlying chronic anemia. Looks to be relatively asymptomatic. Plan: 1. DVT prophylaxis including Thiede teds, SCDs, and she is back on her Plavix once a day. 2. PT/OT. She can weight-bear as tolerated. Does [employer] hip precautions. 3. Medical management as per the medicine service. 4. Anemia. Vital sign robertson she looks pretty asymptomatic. Will leave it up to the medicine service whether any transfusions necessary. 5. Disposition. She is orthopedically stable for discharge anytime medically stable. I did see her back 2 to 3 weeks out from surgery date. Any orthopedic questions can be directly [phone]. Admission and Anticipated Discharge Date Admission Date: March 11, 2024 Subjective 89-year-old female now postop day 2 from a left cemented bipolar hip arthroplasty for fracture. She is lying in bed looks pretty comfortable. Once again very hard of hearing and difficult to communicate with. Physical Exam Physical Exam: Physical examination was elderly if felt frail female. She is lying in bed. She looks comfortable. Examination left hip reveals the dressing be clean dry and intact. No significant swelling or major bruising. Leg lengths are equal. She moves her leg spontaneously. Really does not follow commands. Results & Data Vital Signs (Past 12 Hours) Vital Signs Pulse Resp BP Pulse Ox O2 Del Method O2 Flow Rate 03/13/24 22:44 Nasal Cannula 2 03/13/24 22:24 91 H 16 135/69 96 Nasal Cannula 2 Laboratory Results Hemoglobin is 6.8. Hematocrit 22.1. Electrolytes are pending. (1) Closed fracture of neck of left femur Encounter type: initial encounter Qualified Code(s): S72.002A - Fracture of unspecified part of neck of left femur, initial encounter for closed fracture
[2024-03-14 07:32] LABS: BUN Creatinine Ratio 21.4 (10-20); Creatinine Clr Calc Pharmacy 20.9 ml/min; Est GFR (African American) 41.7 ml/min
[2024-03-14 08:11] LABS: Basophils # (auto) 0.01 K/uL (0.00-0.20); Basophils % (auto) 0.1 %; Eosinophils # (auto) 0.66 K/uL (0.00-0.50); Immature Granulocytes # (auto) 0.04 K/uL (0.01-0.20); Immature Granulocytes % (auto) 0.5 %; Lymphocytes # (auto) 0.99 K/uL (1.20-3.40); Lymphocytes % (auto) 11.9 %; Monocytes # (auto) 1.01 K/uL (0.11-0.59); Monocytes % (auto) 12.2 %; Neutrophils # (auto) 5.59 K/uL (1.40-6.50); Neutrophils % (auto) 67.3 %; RBC Morphology Unremarkable
[2024-03-14] MEDS ORDERED: SODIUM CHLORIDE 0.9% 250 ML IV PRN (11:48)
--- NOTE | 2024-03-14 14:50 | Hospitalist Progress Note ---
Date of Service March 14, 2024 Assessment & Plan (1) Closed fracture of neck of left femur: Plan: due to unwitnessed fall, diagnosed by CT of the left hip - Left cement hemiarthroplasty 2 days ago, procedure successful per orthopedic surgery notes - hemoglobin, hematocrit decreasing post-procedure: Hgb 6.8 as of this morning - gained consent from pt's daughter and ordered 1 unit blood for transfusion - continue holding Plavix for now - IV fluids discontinued Present on Admission?: Yes (2) Acute hypokalemia: Plan: resolved: 3.9 today, appears stable - discontinued K+ repletion 10mEg in 100mL q1H 100cc/hr - continue monitoring levels Present on Admission?: Yes (3) Chronic hyponatremia: Plan: Na 137 today, up from 135 yesterday - appears stable, continue monitoring levels (4) Dementia: Plan: continue assessing for changes in mental status - risperidone 0.5mg PO QHS for - daily EKG for QT-prolonging agents - Fall precautions - continue home Buspirone 10mg and Cymbalta 20mg qAM (5) History of TIA (transient ischemic attack): Plan: home meds include aspirin and Plavix, holding Plavix due to scheduled orthopedic surgery today - monitor for neurologic symptoms such as facial droop, speech changes, and motor deficits (6) GERD (gastroesophageal reflux disease): Plan: continue Pepcid 20mg PO BID Admission and Anticipated Discharge Date Admission Date: March 11, 2024 Supervising Physician Co-Signing Physician Notes ATTESTATION I also saw the patient and confirmed carranza portions of the history and exam. I agree with the impression and plan in the resident documentation. Patient's daughter is bedside today. Patient is sleepy, though in talking to the daughter, she has been through to urologic procedures and the surgery in the last couple weeks. She does have a little bit of pain, but tolerable. EXAM 137/84, 81, 18, 36.4, 90% on nasal cannula at 2 L/min Heart sounds regular with occasional ectopy Lungs clear with nonlabored respirations DATA Labs Hemoglobin 6.8 Sodium 137, potassium 3.9, BUN 28, creatinine 1.31 Micro Urine culture collected upon admission shows no growth. IMPRESSION & PLAN Left femur fracture, Status post repair, Postoperative day #2 Nondisplaced zone 1 fracture of sacrum Pain seems fairly well-controlled, will try to utilize Tylenol over opiates Acute kidney failure, on CKD 3, improved Hyponatremia, acute on chronic, improving Monitor BMP Discontinue fluids for today given the transfusion Delirium, with underlying dementia Anemia, acute blood loss on chronic Discussed with daughter Transfuse 1 unit packed red blood cells Recheck CBC in a.m. History of recent TIA Plavix has been resumed Additional per resident documentation Subjective 89-year-old female now postop day 2 from a left cemented bipolar hip arthroplasty for L femoral neck fracture. Lying in bed slightly sloped to her right with eyes closed and mouth slightly open. Opened her eyes when asked to do so, then unprompted said "I can see you" Upon asking her full name she recited it to me, and when asked her date of she said " something" which is better orientation than she had been previously. Denied being in any pain or having any discomfort at time of AM visit. Later in the morning, pt's daughter was present in the room, noted that she is around baseline mentation, drinking well and eating slowly. Considering low hemoglobin value of 6.8 from AM labs, gained consent from pt's daughter to give 1 unit blood transfusion to help improve her levels. Review of Systems Review of Systems: Unobtainable due to cognitive status Physical Exam Constitutional: WD/WN, vitals as above well developed, + thin and + altered mental status AMS improving since yesterday Eyes: PERRL, conjunctivae normal, anicteric sclerae ENMT: Ears: + hearing impairment Neck: trachea midline, no thyromegaly Respiratory: normal respiratory effort, lungs clear to auscultation Cardiovascular: RRR, no murmur, no edema Extremities: normal capillary refill Gastrointestinal (Abdomen): normal bowel sounds, soft, nontender, no hepatosplenomegaly Musculoskeletal: Hip: + ecchymosis L hip ecchymosis ecchymosis to L side of neck unable to assess strength due to lack of understanding of command or avolition, but spontaneously moves extremities Skin: no rashes, warm and dry Psychiatric: Orientation: alert and oriented to person Eye Contact: + fair eye contact Results & Data Results & Data Vital Signs (Past 12 Hours) Vital Signs Temp Pulse Pulse Resp BP BP Pulse Ox 03/14/24 13:47 36.4 C L 81 18 138/62 99 03/14/24 13:17 36.1 C L 79 18 137/77 99 03/14/24 13:02 36.4 C L 79 18 126/73 99 03/14/24 12:36 36.4 C L 80 18 130/70 98 03/14/24 07:35 36.8 C 86 18 163/68 H 98 O2 Del Method O2 Flow Rate 03/14/24 13:47 2 03/14/24 13:17 2 03/14/24 13:02 2 03/14/24 12:36 2 03/14/24 07:35 Nasal Cannula 2 Resident Activity Tracking Resident Involvement: Resident Care Provided Care Provided: Adult Hospital Medicine (1) Closed fracture of neck of left femur Encounter type: initial encounter Qualified Code(s): S72.002A - Fracture of unspecified part of neck of left femur, initial encounter for closed fracture (4) Dementia Dementia behavioral or psychological symptom: with agitation Dementia severity: unspecified severity Dementia type: unspecified type Qualified Code(s): F03.911 - Unspecified dementia, unspecified severity, with agitation (6) GERD (gastroesophageal reflux disease) Esophagitis presence: esophagitis presence not specified Qualified Code(s): K21.9 - Gastro-esophageal reflux disease without esophagitis
[2024-03-14 20:21] LABS: Hematocrit (blood only) 27.4 % (37.0-47.0); Hemoglobin 9.1 g/dl (12.0-16.0)
--- NOTE | 2024-03-15 07:06 | Hospitalist Progress Note ---
Date of Service March 15, 2024 Assessment & Plan (1) Closed fracture of neck of left femur: Plan: due to unwitnessed fall, diagnosed by CT of the left hip - Left cement hemiarthroplasty 3 days ago, procedure successful per orthopedic surgery notes - hemoglobin, hematocrit decreasing post-procedure: Hgb 6.8 as of this morning - gained consent from pt's daughter and ordered 1 unit blood for transfusion -> resolved to 9.2 on 03/15/24 - continue holding Plavix for now - IV fluids discontinued - continue daily PT - plan to discharge to [facility] next week pending bed availability (2) Acute hypokalemia: Plan: K stable at 3.9 on 03/14 - 03/15/24 - continue qAM BMP (3) Chronic hyponatremia: Plan: Na stable at 137 on 03/14 - 03/15/24 - continue qAM BMP (4) Dementia: Plan: continue assessing for changes in mental status - risperidone 0.5mg PO QHS for - Fall precautions - continue home Buspirone 10mg and Cymbalta 20mg qAM (5) History of TIA (transient ischemic attack): Plan: home meds include aspirin and Plavix, continue holding Plavix due to low hemoglobin of 6.8 on 03/14/24 for which she was transfused 1u blood - monitor for neurologic symptoms such as facial droop, speech changes, and motor deficits: difficult to obtain during times of delirium (6) GERD (gastroesophageal reflux disease): Plan: continue Pepcid 20mg PO BID Admission and Anticipated Discharge Date Admission Date: March 11, 2024 Supervising Physician Co-Signing Physician Notes I personally examined the patient and verified carranza points of history and exam, discussed case, and agree with decision making and plan documented by Dr. Crowder. Patient POD 3 s/p left hemiarthroplasty. She denies pain. Patient appears comfortable, lungs clear b/l to auscultation, regular rate and rhythm, normal bowel sounds, no acute distress. Currently awaiting placement for rehab in SNF. Vivek Aragon, postop day 3 after L hip cement hemiarthroplasty, was seen and examined at bedside today, not appearing in acute distress but also difficult to know due to waxing/waning delirium, particularly notable in the morning. Notably, pt had hemoglobin drop down to 6.8 yesterday, after which she was transfused with 1 unit of blood, after which 4pm H&H showed Hbg of 9.1, and was 9.2 this morning. Patient had eaten about 10% of her breakfast and was resting in her usual position in bed. Patient was able to answer "no" to being in any pain. Opened eyes slightly on 2nd ask, but did not follow any other movement-directed questions. Plan is to transfer to [facility], as daughter Sridevi doesn't want pt going anywhere else but they won't have a bed until next week. Review of Systems Review of Systems: Unobtainable due to mental health condition and Unobtainable due to cognitive status Physical Exam Constitutional: WD/WN, vitals as above well developed, + thin and + altered mental status Eyes: PERRL, conjunctivae normal, anicteric sclerae ENMT: Ears: + hearing impairment Neck: trachea midline, no thyromegaly normal visual inspection Respiratory: normal respiratory effort, lungs clear to auscultation Cardiovascular: RRR, no murmur, no edema Rate/Rhythm: regular rate Heart Sounds: + murmur Extremities: normal capillary refill Gastrointestinal (Abdomen): normal bowel sounds, soft, nontender, no hepatosplenomegaly Musculoskeletal: Hip: + ecchymosis Skin: no rashes, warm and dry Psychiatric: Orientation: alert and oriented to person Eye Contact: + fair eye contact Results & Data Results & Data Vital Signs (Past 12 Hours) Vital Signs Temp Pulse Resp BP Pulse Ox O2 Del Method O2 Flow Rate 03/14/24 21:59 93 Room Air 03/14/24 21:16 97 Room Air 03/14/24 21:12 96 Nasal Cannula 1 03/14/24 20:10 36.3 C L 88 18 161/68 H 100 Nasal Cannula 2 03/14/24 19:20 Nasal Cannula 2 Resident Activity Tracking Resident Involvement: Resident Care Provided Care Provided: Adult Hospital Medicine (1) Closed fracture of neck of left femur Encounter type: initial encounter Qualified Code(s): S72.002A - Fracture of unspecified part of neck of left femur, initial encounter for closed fracture (4) Dementia Dementia behavioral or psychological symptom: with agitation Dementia severity: unspecified severity Dementia type: unspecified type Qualified Code(s): F03.911 - Unspecified dementia, unspecified severity, with agitation (6) GERD (gastroesophageal reflux disease) Esophagitis presence: esophagitis presence not specified Qualified Code(s): K21.9 - Gastro-esophageal reflux disease without esophagitis
--- NOTE | 2024-03-15 07:07 | Discharge Summary ---
Date of Service March 21, 2024 Admission HPI Per Admitting Provider Kathy Aragon is an 89yo female with history of Sjogren's syndrome, HTN, recent TIA and Hypothyroidism presenting from [facility] after a fall. Patient is confused - daughter Sridevi is at bedside and provides the history. Patient has not been doing well for the last 6-7 weeks. She was admitted to [facility] from 01/17 - 01/22/2024 after presenting from her personal care facility with confusion and UTI (diagnosed by PCP on 01/16/24 - had been on Macrobid). Patient was treated with Ceftriaxone during that hospitalization - she did have a likely aspiration event causing acute hypoxic respiratory failure which was treated with supportive care and steroids. She was ultimately discharged back to [facility]. She was readmitted to the hospital on 02/01 - 02/15/24 after presenting with agitation and confusion. Thought to be secondary to delirium. Patient suffered a TIA on 02/07/24 and was started on ASA and Plavix. DAPT to continue x 3 weeks then Plavix indefinitely. Patient was started on Risperidone qHS for agitation and ultimately discharged to [facility]. On 02/23/24 patient had a cystoscopy to evaluate a lesion at the urethra/bladder neck that was causing urinary obstruction. She had a TURBT performed on 03/06/[address] Leon. Daughter reports that patient has not been herself since the initial hospitalization on 01/18/24. She has had waxing and waning mental status, periods of confusion as well as occasional agitation. Daughter reports that patient's mental status was almost at baseline after her urethral surgery. [facility] [place] the evening of 03/09/24 around 19:30 - uncertain if witnessed or unwitnessed. Daughter was notified the afternoon of 03/10/24 of the fall and was told that everything was fine. Daughter visited today 03/11/24 and found her mother sitting in a wheelchair, slumped over and confused. She noted a bump on the back of patient's head as well as bruising on the left side of her neck. In the ER patient is afebrile, HD stable and non-toxic in appearance ER Course: Ceftriaxone NSS x 1L Pepcid 20mg Risperidone 0.5mg Crestor 20mg Buspirone 10mg Carvedilol 6.25mg Tylenol 1gm Admission Exam Per Admitting Provider General: patient somnolent, arousable, very hard of hearing - doesn't answer questions or follow commands Skin: thin, scattered bruising - left neck, posterior scalp HEENT: NC/AT, PERRL, EOMI, anicteric sclera, conjunctiva without injection, external ear normal to inspection and nontender, nares patent, dry mucus membranes, dentition intact, no oropharyngeal lesions, neck supple, trachea midline, no LAD, no thyromegaly, no JVD Heart: +S1/S2, regular, 3/6 DIANE across precordium Lungs: equal air entry bilaterally, no rales/rhonchi/wheezes Abd: +BS, soft, NT/ND, no masses/organomegaly/ascites Ext: LLE shortened and externally rotated, no bruising of flank, NV intact Neuro: hard of hearing, not oriented, not following commands Principal Diagnosis L femoral neck fracture, nondisplaced Discharge Exam constitutional: alert, oriented to person "Kathy Aragon", "January", place "hospital" and reason "my hip" and when asked laterality, "left" HEENT: anicteric sclerae, significant hearing improvement with L hearing aid in place CV: RRR with holosystolic murmur, 1+ R carotid pulse, 2+ L carotid pulse, 2+ radial pulses, 2+ posterior tibial pulses Pulmonary: clear to auscultation b/l MSK: - 5/5 strength RUE and b/l LE; 4/5 strength of LUE - 5/5 wetlands technician strength RUE, 4/5 wetlands technician strength LUE - 5/5 strength b/l LE Neuro: - able to wiggle fingers on both hands, R>L - mostly symmetric smile, mild droop on L - good eye contact skin: healing bruise and surgical scar lateral L hip Discharge Data Allergies Allergy/AdvReac Type Severity Reaction Status Date / Time Sulfa (Sulfonamide Allergy Intermediate Rash Verified 03/06/24 08:45 Antibiotics) adhesive Allergy Mild rash Verified 03/06/24 08:45 enalaprilat [From Vasotec] Allergy Unknown Unknown Verified 03/06/24 08:45 atorvastatin AdvReac Severe Unconscious Verified 03/06/24 08:45 Consultations 03/11/24 18:35 Consult Orthopedic Surgery Routine 03/11/24 19:09 ED Decision to Admit Stat 03/11/24 21:20 Consult Orthopedic Surgery Routine Procedures Performed Operation Date: 03/12/24 09:40 Actual Procedures p Left Cemented Hemiarthroplasty(Left) - Fco Santillan MD Ordered Studies 03/11/24 17:04 CT cervical spine wo con Stat CT head/brain wo con Stat 03/11/24 17:40 CT hip LT wo con Stat 03/11/24 17:41 CT pelvis wo con Stat Hospital Course (1) Closed fracture of neck of left femur: due to unwitnessed fall, diagnosed by CT of the left hip - Left cement hemiarthroplasty on 03/12/24, procedure successful per orthopedic surgery notes - hemoglobin, hematocrit decreasing post-procedure: Hgb 6.8 as of 03/14/24 morning - gained consent from pt's daughter and ordered blood for transfusion - healing well, moving L lower extremity well and with good sensation - continue PT/OT at [facility] for rehab (2) Stenosis of right internal carotid artery with cerebral infarction: 99% stenosis of Right Internal Carotid Artery, contributed to R-side brain infarction/stroke: parietal lobe infarct with scattered small-tiny infarcts throughout R hemisphere - had significant weakness of left upper extremity, but once resumed aspirin she became more functional with LLE in the following days - scheduled for TCAR (transcarotid artery revascularization) procedure on Monday03/26/[address] Quintanilla - continue DAPT: aspirin 81mg daily, Ticagrelor 90mg BID (3) Dementia: continue assessing for changes in mental status - risperidone 0.5mg PO QHS for - Fall precautions - continue home Buspirone 10mg and Cymbalta 20mg qAM (4) Acute hypokalemia: resolved, appears stable - discontinued K+ repletion (5) Chronic hyponatremia: appears stable and within normal limits - monitor weekly (6) GERD (gastroesophageal reflux disease): continue Pepcid 20mg PO BID (7) Kel-neglect of left side: symptom of R parietal stroke - see assessment #2 (8) Ischemic stroke: see assessment #2 Total Time Total Time Spent Total Time Spent (In Minutes): 120 Discharge Plan Discharge Items Patient Disposition: Transfer Inpatient Rehab Fac Reason For Visit: FALL,LEFT HIP FRACTURE Discharge Diagnosis: Left Hip Replacement for fracture Condition on Discharge: Fair Activity: Per Instructions section Activity Comment: Follow/Obey hip precautions at all times. Weightbearing: Full weightbearing Weightbearing Comment: Weightbear as tolerated obeying hip precautions at all times. Non-emergency contact: Primary Care Provider Call non-emergency contact if: you have any medication questions and your symptoms worsen Follow-up/Referrals: Deepti Francois CRNP [Primary Care Provider] - Fco Santillan MD [Physician] - (Orthopedic follow-up 2-3 weeks from surgery date.) Diet: Regular Diet Texture: Easy to Chew Diet Comment: has been "minced and moist" during hospital stay Addtl Attending Provider Instructions: Follow/Obey hip precautions at all times. You came to [facility] for an unwitnessed fall in which you sustained a Left Femoral Neck fracture. You had a successful procedure to repair the hip. Some time last week after your procedure, you sustained a right parietal stroke based on CT head, which we decided to order based on significant left upper extremity weakness. You were resumed on aspirin and have been switched from clopidogrel (Plavix) to Ticagrelor since it does not require monitoring like Plavix does, but it fulfills the same purpose for DAPT (dual anti-platelet therapy). Please continue refilling these medications as soon as they start getting low, and have them re-prescribed once your 4 refills run out. Continue taking daily medications as prescribed, continue daily physical/occupational therapy. Addtl Overnight Associate Provider Instructions: Patient is scheduled for a TCAR on monday at [facility] Pending Studies at Discharge: No Stand-Alone Forms: My [facility] Skilled Items Patient informed of condition?: Yes DNR: Yes Discharge Level of Care: Acute rehab Communicable Disease: No Discharge Prognosis: Improving Lines: None Urinary Catheter: Yes Medications and DC Order Prescriptions: New ticagrelor 90 mg tablet 90 mg PO BID Qty: 60 4RF aspirin 81 mg Tablet,Delayed Release (Dr/Ec) 81 mg PO QAM 60 Days Qty: 60 4RF Continued multivitamin Tablet 1 tab PO QAM acetaminophen 325 mg Tablet 650 mg PO Q6 MDD 3 GRAMS APAP/24 HOURS PRN (Reason: Fever Or Pain) omega 4-[id number]-mtv-fish oil [Fish Oil] 1,200 (144-216) mg Capsule 1 cap PO QAM rosuvastatin 20 mg tablet 20 mg PO HS carvedilol 6.25 mg tablet 6.25 mg PO BID amlodipine 5 mg tablet 5 mg PO BID acetaminophen [Tylenol Extra Strength] 500 mg Tablet 1,000 mg PO HS famotidine 20 mg tablet 20 mg PO BID levothyroxine 125 mcg tablet 125 mcg PO QAM fluorometholone 0.1 % drops,suspension 1 drp OPB QID furosemide 20 mg tablet 20 mg PO QAM risperidone 0.5 mg tablet 0.5 mg PO HS cyclosporine 0.05 % dropperette 1 drp OPB BID duloxetine 20 mg capsule,delayed release(DR/EC) 20 mg PO QAM melatonin 5 mg Tablet 5 mg PO HS cholecalciferol (vitamin D3) [Vitamin D3] 50 mcg (2,000 unit) Capsule 50 mcg PO QAM PreserVision AREDS-2 250-90-40-1 mg Capsule 1 tab PO BID buspirone 10 mg Tablet 10 mg PO TID sodium chloride 1,000 mg Tablet,Soluble 1,000 mg PO DAILY Systane Ultra (PF) 0.4-0.3 % Drops 1 drp OPB QID Discontinued clopidogrel 75 mg Tablet 75 mg PO QAM 30 Days Qty: 30 0RF Discharge Orders: Discharge Order (Routine); Ordered 03/21/24 Ordered By: Adrian Serna/Other Patient Handouts: Stroke: Taking Medicines, Stroke: Resources and Support, Stroke: Tips for Swallowing, Stroke Regaining Movement, Fall Prevention Assessing Risk, Falls Prevent Adjust Living Space Admission Data Admit Date/Time: 03/11/24 19:45 Attending Provider: Duarte Du Admit Provider: Natasha Santillan Primary Care Provider: Deepti Francois. Other Providers: Anatoliy Marrero; [facility]; Natasha Santillan; Anatoliy Batres; Gonzalo Winkler; Randi Hsu; Kailyn Dickinson; Jammie Castillo; Adrian Bellamy; Mike Quintanilla; [facility]; Jaden Alanis [facility] Other Interventions: Discharge Summary Assessment (RN) Last Done: 03/21/24 12:59 Supervising Physician Co-Signing Physician Notes I personally examined the patient and verified all carranza points of history and exam, discussed case, and agree with decision making with Dr Crowder no new issues, for SNF today. vitals noted nad at rest heent nc at mmm breathing unlabored no accessory muscles good effort skin no rashes no pallor or icterus neuro no focal deficits at rest CVAmed management, secondary risk reduction, SNF, PT/OT. TCAR as an outpatient in the near future, appreciate vascular assistance hip fracturestatus post repair. PT/OT eval and treat. Outpatient bone health management. DVT proph - per ortho (antiplatelets, SCDs) otherwise as above for SNF - [facility] - today Resident Activity Tracking Resident Involvement: Resident Care Provided Care Provided: Adult Hospital Medicine
[2024-03-15 07:55] LABS: Basophils # (auto) 0.01 K/uL (0.00-0.20); Basophils % (auto) 0.1 %; Eosinophils # (auto) 0.64 K/uL (0.00-0.50); Eosinophils % (auto) 6.9 %; Hematocrit (blood only) 28.2 % (37.0-47.0); Hemoglobin 9.2 g/dl (12.0-16.0); Immature Granulocytes # (auto) 0.08 K/uL (0.01-0.20); Immature Granulocytes % (auto) 0.9 %; Lymphocytes % (auto) 9.6 %; Mean Corpuscular Hemoglobin 29.7 pg (25.0-34.0); Mean Corpuscular Hgb Conc 32.6 g/dL (32.0-36.0); Monocytes # (auto) 0.84 K/uL (0.11-0.59); Neutrophils # (auto) 6.87 K/uL (1.40-6.50); Neutrophils % (auto) 73.5 %; Platelet Count 202 K/uL (130-400); RDW Coefficient of Variation 16.2 % (11.5-14.5); RDW Standard Deviation 54.4 fL (36.4-46.3); White Blood Count 9.34 K/ul (4.8-10.8)
[2024-03-15 08:15] LABS: BUN Creatinine Ratio 21.4 (10-20); Calcium 8.6 mg/dl (8.6-10.3); Creatinine Clr Calc Pharmacy 24.5 ml/min; Est GFR (African American) 50.4 ml/min; Est GFR (Non-African American) 43.5 ml/min; Potassium 3.9 mmol/L (3.5-5.1)
--- NOTE | 2024-03-15 09:08 | Orthopedic Progress Note ---
Date of Service March 15, 2024 Assessment & Plan (1) Closed fracture of neck of left femur: Plan: 89-year-old female with multiple medical comorbidities now for 3 days out from a left cemented bipolar hip arthroplasty for fracture. Orthopedically she seems t o be doing well and stable. Plan: 1. DVT prophylaxis including thigh-high teds, SCDs, and she is back on her Plavix dose. 2. PT/OT. She can fully weight-bear as tolerated. Does [place] hip prec autions for the first 6 weeks. 3. Pain control. This seems relatively comfortable. Stick to Tylenol for pain control and avoid narcotics. 4. Medical management as per the medicine service. 5. Disposition. She is orthopedically okay for discharge anytime medically stable. I need to see her back 2 to 3 weeks out from surgery date. Any orthopedic questions can be direct me [phone]. Admission and Anticipated Discharge Date Admission Date: March 11, 2024 Subjective 89-year-old female postop day 3 from a left cemented bipolar hip arthroplasty for fracture. She once again seems pretty comfortable lying in bed. She spontaneously moves her foot. Really does not follow commands. Very difficult hearing. Physical Exam Physical Exam: Physical examination reveals an elderly female lying in bed. She looks pretty comfortable. Examination left hip and leg reveals dressing be clean dry and intact. There is no drainage. Mild swelling. Leg lengths are equal. She appears neurologically intact. Results & Data Vital Signs (Past 12 Hours) Vital Signs Temp Pulse Resp BP Pulse Ox O2 Del Method O2 Flow Rate 03/15/24 07:39 36.5 C 92 H 16 161/75 H 95 Room Air 03/14/24 21:59 93 Room Air 03/14/24 21:16 97 Room Air 03/14/24 21:12 96 Nasal Cannula 1 Laboratory Results Hemoglobin is 9.2. Hematocrit is 28.2.
--- NOTE | 2024-03-16 06:51 | Hospitalist Progress Note ---
Date of Service March 16, 2024 Assessment & Plan (1) Ischemic stroke: Plan: exam finding of left upper extremity weakness - 03/16/24: noncontrast CT head showed evidence of a Right parietal lobe infarct measuring 3.5cm, previous head CT on 03/11/24 after fall does not show evidence of these acute changes, may have been due to hypoperfusion during L hip replacement procedure on 03/12/24 - no evidence of hemorrhage or midline shift - daughter Sridevi contacted and informed, consent to start pt on DAPT: since already on Plavix, starting pt back on aspirin 325mg today, 81mg daily thereafter; patient was previously on DAPT (aspirin and Plavix) in past months due to instances of TIA without prior radiologic evidence of stroke - neurology consulted - PT seeing patient daily - plan for pt to go to [facility] next week pending bed availability Present on Admission?: No (2) Closed fracture of neck of left femur: Plan: due to unwitnessed fall, diagnosed by CT of the left hip - Left cement hemiarthroplasty on 03/12/24, procedure successful per orthopedic surgery notes - 03/16/24: hemoglobin continuing to rise post-transfusion, 9.6 - Plavix was resumed on 03/13/24, 24hr post-procedure - continue daily PT - plan to discharge to [facility] next week pending bed availability, daughter preference (3) Chronic hyponatremia: Plan: appears stable, 135 - continue qAM BMP (4) Acute hypokalemia: Plan: appears stable, 3.9 - continue qAM BMP (5) Dementia: Plan: continue assessing for changes in mental status - risperidone 0.5mg PO QHS for - Fall precautions - continue home Buspirone 10mg and Cymbalta 20mg qAM - discontinuing melatonin prn for now due to possible contribution to excessive morning sleepiness (6) History of TIA (transient ischemic attack): Plan: home meds include aspirin and Plavix, Plavix has been continued as of 03/13/24 - focal neurologic change: LUE weakness (see ischemic stroke assessment) (7) GERD (gastroesophageal reflux disease): Plan: continue Pepcid 20mg PO BID Admission and Anticipated Discharge Date Admission Date: March 11, 2024 Supervising Physician Co-Signing Physician Notes I personally examined the patient and verified carranza points of history and exam, discussed case, and agree with decision making and plan documented by Dr. Crowder. Patient POD 4 s/p left hemiarthroplasty. Concerns for left-sided upper extremity weakness on exam and mental status change with resultant CT head performed today with acute right parietal infarct. Spoke with patient's daughter Sridevi. Patient will be placed back on aspirin for DAPT. Neurology consult placed. Await PT evaluation in setting of new CVA. Anticipate rehabilitation at [facility]. Subjective Patient was seen at bedside this morning, sloped to her right. She was less alert than previous days, only slightly opened her eyes when asked to do so. Was able to move and lift her right upper extremity on command, as well as move both of her legs, but appeared unable to appreciably move her left upper extremity Pt's daughter was present, and endorsed that she has been functioning lower than her baseline particularly since the left hip hemiarthroplasty on 03/12/24. She states that she was previously able to communicate by reading written notes and responding, but that ability has declined over the week. When asked, patient says "no" to being in any pain and Review of Systems Review of Systems: All systems reviewed & are unremarkable except as noted in HPI & below Constitutional: + daytime sleepiness no fever Eyes: + dry eyes Ear, Nose, Mouth, Throat: + hearing loss Physical Exam Constitutional: + thin and + altered mental status ENMT: Ears: + hearing impairment hearing aid only for L ear present Neck: trachea midline, no thyromegaly normal visual inspection Respiratory: normal respiratory effort, lungs clear to auscultation Cardiovascular: Rate/Rhythm: regular rate Heart Sounds: + murmur Extremities: normal capillary refill holosystolic murmur heard on auscultation b/l 2+ radial pulses, b/l 1+ posterior tibial pulses, all extremities warm and appear well-perfused Gastrointestinal (Abdomen): normal bowel sounds, soft, nontender, no hepatosplenomegaly Musculoskeletal: Hip: + ecchymosis weakness of LUE with minimal movement spontaneously or on command - RUE, RLE, and LLE spontaneously and on command ecchymosis to left side of neck left lateral hip region Skin: no rashes, warm and dry Neurologic: + focal motor deficit LUE motor deficit spontaneously and on command Psychiatric: Orientation: alert Eye Contact: + fair eye contact cooperative when asked to perform certain tasks like moving extremities, but was unable to appreciably more her left upper extremity Results & Data Results & Data Vital Signs (Past 12 Hours) Vital Signs Temp Pulse Resp BP Pulse Ox O2 Del Method 03/15/24 20:50 Room Air 03/15/24 20:10 37.2 C 88 18 167/70 H 95 Room Air Resident Activity Tracking Resident Involvement: Resident Care Provided Care Provided: Adult Hospital Medicine (2) Closed fracture of neck of left femur Encounter type: initial encounter Qualified Code(s): S72.002A - Fracture of unspecified part of neck of left femur, initial encounter for closed fracture (5) Dementia Dementia behavioral or psychological symptom: with agitation Dementia severity: unspecified severity Dementia type: unspecified type Qualified Code(s): F03.911 - Unspecified dementia, unspecified severity, with agitation (7) GERD (gastroesophageal reflux disease) Esophagitis presence: esophagitis presence not specified Qualified Code(s): K21.9 - Gastro-esophageal reflux disease without esophagitis
[2024-03-16 07:27] LABS: Basophils # (auto) 0.02 K/uL (0.00-0.20); Basophils % (auto) 0.3 %; Eosinophils % (auto) 8.7 %; Hematocrit (blood only) 29.3 % (37.0-47.0); Hemoglobin 9.6 g/dl (12.0-16.0); Immature Granulocytes % (auto) 1.4 %; Lymphocytes # (auto) 1.23 K/uL (1.20-3.40); Lymphocytes % (auto) 17.8 %; Mean Corpuscular Hemoglobin 29.6 pg (25.0-34.0); Mean Corpuscular Hgb Conc 32.8 g/dL (32.0-36.0); Mean Corpuscular Volume 90.4 fL (80.0-100.0); Mean Platelet Volume 9.8 fL (9.4-12.4); Monocytes # (auto) 0.79 K/uL (0.11-0.59); Monocytes % (auto) 11.4 %; Neutrophils # (auto) 4.18 K/uL (1.40-6.50); Neutrophils % (auto) 60.4 %; Platelet Count 245 K/uL (130-400); RDW Coefficient of Variation 15.6 % (11.5-14.5); RDW Standard Deviation 51.9 fL (36.4-46.3); Red Blood Count 3.24 M/uL (4.20-5.40); White Blood Count 6.92 K/ul (4.8-10.8)
[2024-03-16 07:49] LABS: Calcium 8.4 mg/dl (8.6-10.3); Creatinine Clr Calc Pharmacy 24.9 ml/min; Est GFR (African American) 51.5 ml/min; Est GFR (Non-African American) 44.5 ml/min; Potassium 3.9 mmol/L (3.5-5.1)
--- NOTE | 2024-03-16 14:43 | CT Scan Report ---
CT head/brain wo con CLINICAL HISTORY: 89 years-old Female with left upper extremity weakness, mumbled speech. Acute stro ke like symptoms TECHNIQUE: Multiple axial CT images of the head were obtained without contrast. A dose lowering tech nique was utilized adhering to the principles of ALARA. CT DOSE: 547.75 mGy.cm COMPARISON: March 11, 2024 FINDINGS: No acute intracranial hemorrhage, midline shift, intracranial mass, hydrocephalus, or abnormal extra- axial collection. Involutional changes with chronic microvascular ischemic disease. Acute right parie nishant infarct on image 16 series 2 measures 3.5 cm. The calvarium is intact. Small left posterior parietal scalp contusion The paranasal sinuses, mastoid air cells, and middle ear cavities are clear. IMPRESSION: 1. Acute right parietal infarct. 2. No acute intracranial hemorrhage or midline shift. ACT 112: Negative or not required by law. The above report was generated using voice recognition software. It may contain grammatical, syntax o r spelling errors. Electronically signed by: Chuy Albright M.D. 03/16/2024 2:42 PM
[2024-03-16] MEDS: ASPIRIN 325 MG ECTAB PO ONE (16:40)
--- NOTE | 2024-03-17 06:51 | Hospitalist Progress Note ---
Date of Service March 17, 2024 Assessment & Plan (1) Ischemic stroke: Plan: Right Parietal infarct, 3.5cm seen on noncon CT head on 03/16/24 - per Dr. Batres (neurologist) clinically, patient is presenting with mild L hemiparesis and hemineglect likely related to the above finding on imaging - continue DAPT daily: aspirin 81mg daily and Plavix 75mg daily neurology consulted: - non-contrast MRI recommended and ordered for better imaging of the extent of the infarct, may have resulted from hypoperfusion during ortho procedure on 03/12/24 vs GREGORIO embolism - vascular surgery consult with Dr. Quintanilla recommended and ordered for evaluation of 99% Right internal carotid artery stenosis; if not completely occluded, pt may be able to get TCAR (transcarotid artery revascularization) or CEA (carotid endarterectomy) procedure, risks and benefits of both to be disc ussed with family PT/OT consulted Plan for pt to go to [facility] this week pending bed availability (2) Closed fracture of neck of left femur: Plan: due to unwitnessed fall, diagnosed by CT of the left hip - Left cement hemiarthroplasty on 03/12/24, procedure successful per orthopedic surgery notes - 03/17/24: hemoglobin continuing to remain stable post-transfusion, 9.6 - Plavix was resumed on 03/13/24, 24hr post-procedure - physical therapy consulted - plan to discharge to [facility] this week pending bed availability, daughter preference (3) Chronic hyponatremia: Plan: appears stable, 133 - continue qAM BMP (4) Acute hypokalemia: Plan: appears stable, 3.7 - continue qAM BMP (5) Dementia: Plan: continue assessing for changes in mental status - risperidone 0.5mg PO QHS for ing - Fall precautions - continue home Buspirone 10mg and Cymbalta 20mg qAM - holding melatonin prn for now due to possible contribution to excessive morning sleepiness (6) History of TIA (transient ischemic attack): Plan: home meds include aspirin and Plavix, Plavix has been continued as of 03/13/24, aspirin continued as of 03/16/24 starting with 325mg dose, 81mg daily thereafter - focal neurologic change: LUE weakness (see ischemic stroke assessment) (7) GERD (gastroesophageal reflux disease): Plan: continue Pepcid 20mg PO BID Admission and Anticipated Discharge Date Admission Date: March 11, 2024 Supervising Physician Co-Signing Physician Notes I personally examined the patient and verified carranza points of history and exam, discussed case, and agree with decision making and plan documented by Dr. Crowder. Patient POD 5 s/p left hemiarthroplasty. Mentation appears improved today, patient with increased use of left upper extremity in setting of right parietal infarct. Patient on DAPT. Brain MRI ordered. Consultation for vascular surgery p laced for ICA stenosis. Awaiting PT re-evaluation in setting of new CVA. Anticipate rehabilitation at [facility]. Subjective Patient was seen at bedside this morning, eating breakfast with the help of RN, eating her oatmeal without issue. She appears significantly more alert than in the previous day, with her eyes about 90% open and having good eye contact. Patient was oriented to person, stating her full name is "Kathy Aragon", date of "January", and place "I was told I'm in the hospital." Observed to be moving her left arm significantly more than in previous day, able to squeeze with her hand and lift arm slowly against gravity but with limited range. Denies being in any pain at the time of encounter, and when told she's looking a lot better today, she responded "I'm feeling better." About 200mL of yellow-clear urine in Gutierrez bag, per RN pt has had 2 bowel movements in bedpan in the last day with no concerns about consistency or blood. Review of Systems Review of Systems: constitutional: no fever HEENT: denies headache cardiovascular: denies chest pain pulmonary: denies shortness of breath neuro: denies nausea or dizziness MSK: denies leg pain Physical Exam Physical Exam: constitutional: A&Ox3 (see subjective) HEENT: anicteric sclerae, eyes 90% open; hard of hearing, left hearing aid helpful CV: RRR, 2+ carotid pulses b/l, 2+ radial pulses Pulmonary: clear to auscultation b/l GI: normal bowel sounds, nontender to palpation Neuro: - mild L-sided facial droop on smile - sensation intact for RLE, inconsistent /lacking sensation of LLE - finger wiggle noticed on pt's right, n ot on left - good eye contact MSK: - 5/5 strength RUE and b/l LE; 4/5 stren gth (movement against gravity) of LUE - 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, 4/5 cnc mill programmer streng th LUE Results & Data Results & Data Vital Signs (Past 12 Hours) Vital Signs Temp Pulse Resp BP Pulse Ox O2 Del Method 03/16/24 21:15 Room Air 03/16/24 21:09 36.8 C 84 12 179/82 H 96 Room Air Resident Activity Tracking Resident Involvement: Resident Care Provided Care Provided: Adult Hospital Medicine (2) Closed fracture of neck of left femur Encounter type: initial encounter Qualified Code(s): S72.002A - Fracture of unspecified part of neck of left femur, initial encounter for closed fracture (5) Dementia Dementia behavioral or psychological symptom: with agitation Dementia severity: unspecified severity Dementia type: unspecified type Qualified Code(s): F03.911 - Unspecified dementia, unspecified severity, with agitation (7) GERD (gastroesophageal reflux disease) Esophagitis presence: esophagitis presence not specified Qualified Code(s): K21.9 - Gastro-esophageal reflux disease without esophagitis
[2024-03-17 07:03] LABS: Hematocrit (blood only) 29.4 % (37.0-47.0); Hemoglobin 9.6 g/dl (12.0-16.0); Mean Corpuscular Hemoglobin 29.3 pg (25.0-34.0); Mean Corpuscular Hgb Conc 32.7 g/dL (32.0-36.0); Mean Corpuscular Volume 89.6 fL (80.0-100.0); Mean Platelet Volume 9.7 fL (9.4-12.4); Platelet Count 258 K/uL (130-400); RDW Coefficient of Variation 14.9 % (11.5-14.5); RDW Standard Deviation 49.3 fL (36.4-46.3); Red Blood Count 3.28 M/uL (4.20-5.40); White Blood Count 6.65 K/ul (4.8-10.8)
[2024-03-17 07:21] LABS: BUN Creatinine Ratio 20.4 (10-20); Calcium 8.2 mg/dl (8.6-10.3); Creatinine Clr Calc Pharmacy 24.2 ml/min; Est GFR (African American) 49.9 ml/min; Est GFR (Non-African American) 43.1 ml/min; Potassium 3.7 mmol/L (3.5-5.1)
[2024-03-17] MEDS: ASPIRIN 81 MG ECTAB PO SCH (08:58)
--- NOTE | 2024-03-17 10:05 | Neurology Consultation ---
Date of Consultation March 17, 2024 Assessment & Plan (1) Ischemic stroke: (2) Kel-neglect of left side: (3) Right carotid artery occlusion: (4) Delirium: (5) Dementia: Plan 89-year-old female with several presentations to the Medical [facility] over the past few months with episodic left-sided weakness, several mechanical falls, found to have a near complete occlusion of the proximal right internal carotid artery, subsequently placed on dual antiplatelet therapy. She unfortunately fell again and was diagnosed with a left femoral neck fracture on March 11, 2024 and underwent left total hip arthroplasty the following day. She was noted to have a recurrence of left-sided weakness and a repeat CT of the head completed January 13 revealed an acute appearing cortical right parietal infarct. No hemorrhage. Clinically, this patient has a mild left hemiparesis and left hemineglect which is likely related to the observed acute right parietal lobe infarct. The observed infarct does appear to have a watershed distribution (between right MCA and right CHEMICAL MAKER) potentially implicating a hypoperfusion injury. On the other hand, carotid embolic stroke cannot be excluded. Would recommend a noncontrast brain MRI. Would also recommend a consultation with vascular surgery as the proximal right internal carotid artery may not be completely occluded, and there may be a potential role for TCAR or CEA. Continue with dual antiplatelet therapy, aspirin 81 mg/day, clopidogrel 75 mg/day. Continue with rosuvastatin 20 mg/day. Permissive hypertension appropriate acutely, systolic blood pressure 140 to 160 mmHg. Further evaluation of patient's underlying dementia is not needed acutely, would not recommend starting a cholinesterase inhibitor or memantine at this time. Risperidone as ordered in the evening is appropriate to address sundowning, agitated delirium. Please call with any questions. History of Present Illness Reason for Consultation: stroke Requesting Physician: Vel Attending Physician: Lizzy Francois DO History of Present Illness The patient is an 89-year-old female with a history of MGUS, Sjogren's syndrome, ambulatory dysfunction. She had presented to the emergency department November 03, 2023 with a fall. She presented again to the emergency department on March 04 in December 07 for falls. On January 17 she was seen for acute confusion, anemia, leukocytosis, acute kidney injury, acute UTI, aspiration, pneumonitis, metabolic encephalopathy, exacerbation of SIADH. She was seen again on January 22 with abdominal pain, leukocytosis, acute urinary retention. She was seen at the [facility] emergency department in [place] on January 27 with altered mental status, sundowning, congestive heart failure. She presented again to the [facility] emergency department February 01 with headache, agitation, altered mental status. A CT of the head obtained February 02, 2024 was negative for hemorrhage or acute process. A brain MRI completed February 04, 2024 was negative for acute stroke or other acute process. She was observed to have left hemiparesis on February 05 and had a telestroke consultation at that time. Another CT of the head was performed which was negative for obvious acute process. A CTA of the head and neck revealed a near total occlusion of the right internal carotid artery at its origin, likely chronic finding. A repeat brain MRI completed February 05 was negative for acute or subacute infarct. She was discharged from the [facility] February 15, 2024 on dual antiplatelet therapy. She underwent a cystoscopy for removal of a bladder tumor on March 06, 2024. She presented again to the emergency department later that day from [facility] as she was difficult to arouse according to her daughter and was noted to have left- sided weakness at that time. Repeat CT of the head and CT angiography of the head and neck were completed. No acute process, no change in the previously seen 99% stenosis of the proximal right internal carotid artery. Also noted was 60% focal stenosis within the takeoff of the left ICA due to atherosclerotic plaque. Patient was stable at that time and discharged. She presented to the emergency department again on March 11, 2024 in the context of altered mental status and another fall that had occurred 2 days prior. She has been on dual antiplatelet therapy. She did strike the back of her head. A CT of the head completed at that time was negative. She did have a left femoral neck fracture identified on CT of the hip. She underwent left total hip arthroplasty on March 12, 2024. Her perioperative course has been notable for hypokalemia, chronic hyponatremia, dementia with some tendency for sundowning. She has been noted to have left upper extremity weakness and a CT of the head was completed yesterday which revealed an acute appearing right parietal infarct. I did independently review these images. The infarct involves the cortex of the posterior right parietal lobe, possibly watershed distribution between the right MCA and right CHEMICAL MAKER territories. There is also mild to moderate generalized atrophy, primarily the frontal lobes. No hydrocephalus, no hemorrhage. The patient is currently awake, she has been eating breakfast with assistance. Resident present at bedside. She is mildly lethargic, inattentive, appears to have some left-sided neglect. She does not have any specific complaints and is an unreliable historian. Allergies Allergy/AdvReac Type Severity Reaction Status Date / Time Sulfa (Sulfonamide Allergy Intermediate Rash Verified 03/06/24 08:45 Antibiotics) adhesive Allergy Mild rash Verified 03/06/24 08:45 enalaprilat [From Vasotec] Allergy Unknown Unknown Verified 03/06/24 08:45 atorvastatin AdvReac Severe Unconscious Verified 03/06/24 08:45 Home Medications Medication Instructions Recorded Confirmed Type acetaminophen 500 mg tablet 1,000 mg PO HS 02/03/24 03/11/24 History (Tylenol Extra Strength) amlodipine 5 mg tablet 5 mg PO BID 02/03/24 03/11/24 History carvedilol 6.25 mg tablet 6.25 mg PO BID 02/03/24 03/11/24 History cholecalciferol (vitamin D3) 50 50 mcg PO QAM 02/03/24 03/11/24 History mcg (2,000 unit) capsule (Vitamin D3) cyclosporine 0.05 % eye drops in a 1 drp OPB BID 02/03/24 03/11/24 History dropperette duloxetine 20 mg capsule,delayed 20 mg PO QAM 02/03/24 03/11/24 History release famotidine 20 mg tablet 20 mg PO BID 02/03/24 03/11/24 History fluorometholone 0.1 % eye 1 drp OPB QID 02/03/24 03/11/24 History drops,suspension furosemide 20 mg tablet 20 mg PO QAM 02/03/24 03/11/24 History levothyroxine 125 mcg tablet 125 mcg PO QAM 02/03/24 03/11/24 History melatonin 5 mg tablet 5 mg PO HS 02/03/24 03/11/24 History risperidone 0.5 mg tablet 0.5 mg PO HS 02/03/24 03/11/24 History vit C 250 mg-vit E 90 mg-zinc 40 1 tab PO BID 02/03/24 03/11/24 History mg-copper 1 km-kpmqgk-avvzly capsule (PreserVision AREDS-2) clopidogrel 75 mg tablet 75 mg PO QAM 30 days #30 tabs 02/15/24 03/11/24 Rx acetaminophen 325 mg tablet 650 mg PO Q6 PRN Fever Or Pain 02/28/24 03/11/24 History multivitamin 1 tab PO QAM 02/28/24 03/11/24 History omega 9-hpv-dhw-fish oil 1,200 mg 1 cap PO QAM 02/28/24 03/11/24 History (144 mg-216 mg) capsule (Fish Oil) rosuvastatin 20 mg tablet 20 mg PO HS 02/28/24 03/11/24 History buspirone 10 mg tablet 10 mg PO TID 03/06/24 03/11/24 History sodium chloride 1,000 mg soluble 1,000 mg PO DAILY 03/06/24 03/11/24 History tablet peg 400 0.4 %-propylene glycol 1 drp OPB QID 03/11/24 03/11/24 History (PF) 0.3 % eye drops (Systane Ultra (PF)) Patient History Medical History TIA (transient ischemic attack) unspecified UTI (urinary tract infection) site not specified Localized edema Localized enlarged lymph nodes Nonrheumatic aortic (valve) stenosis Colon polyp Acute kidney failure Hypertensive chronic kidney disease with stage 1 through stage 4 chronic kidney disease, or unspecified chronic kidney disease Urinary retention Unspecified dementia, unspecified severity, without behavioral disturbance, psychotic disturbance, mood disturbance, and anxiety Delirium due to known physiological condition Transient ischemic attack (TIA) Anemia Hypertension Hypothyroidism Sjogren's syndrome Sprain of left ankle Sprain of left foot Hypertensive urgency Constipation Fall Hypomagnesemia Right elbow pain Dermatitis Neuropathy Left hand pain Cervical muscle strain Peripheral edema Insomnia Sensorineural hearing loss (SNHL) of both ears Memory changes Increased urinary frequency Aortic valve sclerosis Arteriosclerosis of carotid artery Benign neoplasm of colon Cervical lymphadenopathy Chronic hoarseness Mixed hyperlipidemia Osteoporosis Rotator cuff tear, left Unsteady gait Vocal cord paralysis Trigeminal neuralgia right Spinal stenosis Osteoarthritis IBS (irritable bowel syndrome) GERD (gastroesophageal reflux disease) Macular degeneration Claustrophobia Cardiac murmur Hyperlipidemia HX OF Surgical History Hx of arthroscopy of shoulder 2019, left History of lumpectomy History of hysterectomy History of bladder surgery BLADDER TACK History of total abdominal hysterectomy and bilateral salpingo-oophorectomy History of colonoscopy History of throat surgery THURNWALDT CYST BENIGN History of tooth extraction History of tonsillectomy History of adenoidectomy Family History Son Family history of diabetes mellitus Father Cancer Sister Cancer Breast cancer Heart disease H/O heart artery stent Mother Myocardial infarction Grandmother AAA (abdominal aortic aneurysm) Myocardial infarction Denies family history of Ovarian cancer Prostate cancer Colorectal cancer Social History Smoking Status: Never smoker Hx Alcohol Use: No Hx Substance Use: No Preferred Language: Chinese Communication Ability: Impaired Communication Ability Comment: hard of hearing Visual Impairment: Limited Hearing Ability: Use of Hearing Aid Colored Liquid Plastic Applier Required: No Beliefs That Will Affect Care: Rastafarian marital status: / Current Living Situation: Senior Living Current Living Situation Comment: [facility] resident current occupational status: retired How many Children do You have: 3 Feels Safe at Home: Yes Childhood Exposure to Second-Hand Smoke: No Diet: Soft caffeine: Yes during the past year weight has: remained stable Dental Care, Regularly: No Physical Activity Frequency: Does not Exercise Seatbelt Use: always Sunscreen Use: Yes Assistive Devices: Walker Review of Systems Review of Systems: Unobtainable due to cognitive status Exam (Neuro) Constitutional: + frail appearing; no acute distress Eyes: normal visual fuller by confrontation, PERRL and EOM intact bilaterally; no nystagmus Neurologic: Oriented to:: Person; negative Place or Time Memory: negative Short Term Intact or Remote Intact Attention: negative Span Intact or Concentration Intact Speech Fluency: negative Dysarthria or Dysfluency Speech Aphasia: negative Aphasia Fund of Knowledge: Vocabulary; negative Current Events Cranial Nerves: Normal II, III, IV, , V, VIII, IX, X, XI and XII; Abnorm VII (There is a mild left lower facial droop) Motor Strength: Hemiparesis (Left upper extremity strength 4/5. Unable to reliably assess left lower extremity due to recent left total hip arthroplasty) Laterality: Left Motor Tone: Normal Lower Extremities and Normal Upper Extremities Muscle Bulk/Involuntary Movements: No Involuntary Movements; negative Muscle Atrophy Sensation: Light Touch Intact, Pain/Temperature Intact and Proprioception Intact Coordination: Finger-Nose Abnormal Laterality: Left Deep Tendon Reflexes: Rt Triceps: 2+, Lt Triceps: 3+, Rt Biceps: 2+, Lt Biceps: 3+, Rt Brachioradialis: 2+, Lt Brachioradialis: 3+, Rt Patellar: 2+, Lt Patellar: 3+, Rt Ankle: 1+ and Lt Ankle: 2+ Special Tests: Babinski Present (left) Details: Patient exhibits left hemineglect. She has some apraxia for the left hand. She also has decreased facility for the left hand. Results & Data Vital Signs (Past 12 Hours) Vital Signs Temp Pulse Resp BP Pulse Ox O2 Del Method 03/17/24 07:17 36.5 C 82 16 156/75 H 96 Room Air Laboratory Results WBC 6.65, hemoglobin 9.6, hematocrit 29.4, MCV 89.6, platelet count 258, sodium 133, potassium 3.7, BUN 23, creatinine 1.13, glucose 111, calcium 8.2. A vitamin B12 level from February 02 was 1088. A vitamin D level from March 13 was 22.8. TSH from March 11 was 0.449. Lipid panel from February 07, 2024 reviewed. Triglycerides 205, cholesterol 232, LDL 145, VLDL 41, HDL 46. Diagnostic Findings Electrocardiogram completed March 11 revealed a sinus rhythm with premature supraventricular complexes. PACs seen on an ECG completed March 06. An echocardiogram completed January 20, 2024 revealed normal left ventricular systolic function, no regional wall motion abnormalities, mild concentric LVH, EF 65 to 70%, mild tricuspid regurgitation, borderline left atrial enlargement. No evidence of ASD. Coding Level of Care Code 91421 INT INP/OBS CARE 75MIN Diagnoses Ischemic stroke I63.9 Kel-neglect of left side R41.4 Right carotid artery occlusion I65.21 Delirium R41.0 Dementia with agitation, unspecified dementia severity, unspecified dementia type F03.911 Dementia type: unspecified type Dementia severity: unspecified severity Dementia behavioral or psychological symptom: with agitation Time Spent (min) 90 Comment Total time includes patient contact, chart review, counseling, note preparation (5) Dementia Dementia type: unspecified type Dementia severity: unspecified severity Dementia behavioral or psychological symptom: with agitation Qualified Code(s): F03.911 - Unspecified dementia, unspecified severity, with agitation
[2024-03-17] MEDS: bisacodyL 10 MG SUPP PR PRN (16:57)
--- NOTE | 2024-03-18 00:08 | Magnetic Resonance Report ---
Exam(s): MRI HEAD Without Contrast EXAM: MR Head Without Intravenous Contrast CLINICAL HISTORY: Reason for exam: R parietal infarct 3.5cm by noncon CT 03/16/24. TECHNIQUE: Magnetic resonance images of the head/brain without intravenous contrast in multiple planes. COMPARISON: Prior brain MRI from February 06, 2024. FINDINGS: Brain: There are multiple small to tiny acute ischemic injuries of the right temporal, occipital, parietal and frontal lobes. Tiny remote ischemic injuries of the cerebellum. No evidence of hemorrhagic transformation. No mass. No hemorrhage. Ventricles: Mild ventriculomegaly. Bones/joints: Unremarkable. No acute fracture. Sinuses: Unremarkable as visualized. No acute sinusitis. Mastoid air cells: There is a tiny amount of fluid in the left mastoid air cells. No mastoid effusion. Orbits: Unremarkable as visualized. IMPRESSION: Multiple small to tiny foci of acute ischemic injuries within the right temporal, occipital, parietal and frontal lobes concerning for embolic phenomena. Recommend CT exam of the head and neck for further evaluation. Communications: Verify Receipt Electronically signed by: Rosana Vo MD 03/18/24 00:07 AM
--- NOTE | 2024-03-18 07:04 | Hospitalist Progress Note ---
Date of Service March 18, 2024 Assessment & Plan (1) Ischemic stroke: Plan: Brain MRI 03/17/24 radiologist impression: - Multiple small to tiny foci of acute ischemic injuries within the right temporal, occipital, parietal and frontal lobes concerning for embolic phenomena. Right Parietal infarct, 3.5cm seen on noncon CT head on 03/16/24 - per Dr. Batres (neurologist) clinically, patient is presenting with mild L hemiparesis and hemineglect likely related to the above finding on imaging - continue DAPT daily: aspirin 81mg daily and Plavix 75mg daily - vascular surgery consult: Dr. Qunitanilla and Dr. Riggs have seen and evaluated patient, suggesting TCAR (trans-carotid artery revascularization) for 99% stenotic Right Internal Carotid Artery for best chance of improvement, patient in agreement, daughter in agreement after lengthy discussion over phone. Procedure to be scheduled within a few weeks. Recommends pt undergo R TCAR procedure. Discussed at length with pt's daughter by phone. She is in agreement. Will schedule within next few weeks. Pt is to remain on DAPT and statin medications through surgery and 1 year post op. - Neurology on board, Dr. Bellamy has seen and evaluated pt today, in agreement with TCAR with vascular surgery. PT/OT consulted Speech consulted for swallow evaluation Plan for pt to go to [facility] this week pending bed availability. (2) Stenosis of right internal carotid artery with cerebral infarction: Plan: Pt with severe (99%) stenosis of R ICA by CTA on 03/06/24, R hemispheric CVA by MRI and CT head - pt seen by Dr Quintanilla today, recommends pt undergo R TCAR procedure - Discussed at length with pt's daughter by phone, in agreement, will be scheduled within next few weeks - to remain on DAPT and statin medications through surgery and 1 year post op (3) Closed fracture of neck of left femur: Plan: due to unwitnessed fall, diagnosed by CT of the left hip - Left cement hemiarthroplasty on 03/12/24, procedure successful per orthopedic surgery notes - 03/17/24: hemoglobin continuing to remain stable post-transfusion, 9.6 - Plavix was resumed on 03/13/24, 24hr post-procedure - physical therapy consulted - plan to discharge to [facility] this week pending bed availability, daughter preference (4) Chronic hyponatremia: Plan: appears stable, 133 - continue qAM BMP (5) Acute hypokalemia: Plan: appears stable - continue qAM BMP (6) Dementia: Plan: continue assessing for changes in mental status - risperidone 0.5mg PO QHS for ing - Fall precautions - continue home Buspirone 10mg and Cymbalta 20mg qAM - holding melatonin prn for now due to possible contribution to excessive morning sleepiness (7) History of TIA (transient ischemic attack): Plan: home meds include aspirin and Plavix, Plavix has been continued as of 03/13/24, aspirin continued as of 03/16/24 starting with 325mg dose, 81mg daily thereafter - focal neurologic change: LUE weakness (see ischemic stroke assessment) (8) GERD (gastroesophageal reflux disease): Plan: continue Pepcid 20mg PO BID Admission and Anticipated Discharge Date Admission Date: March 11, 2024 Supervising Physician Co-Signing Physician Notes I personally examined the patient and verified all carranza points of history and exam, discussed case, and agree with decision making with Dr Crowder feeling okay. Still little bit of difficulty moving her left arm, but no other acute complaints. Later updated daughter to the best my ability and to her satisfaction. Breathing unlabored no accessory muscle use good effort. Skin without rashes pallor or icterus. Neuro Shows left-sided weakness. CVAmed management, secondary risk reduction, SNF. TCAR as an outpatient in the near future hip fracturestatus post repair. PT/OT eval and treat. Outpatient bone health management. DVT proph - per ortho (antiplatelets, SCDs) otherwise as above pending SNF Subjective Patient was seen and evaluated at bedside this morning, eyes closed upon enc ounter. Of note pt had a small soft, brown stool in the past day. Patient was without her L hearing aid, so I inserted it and was able to hear well. To "how are you this morning?" pt responded "Pretty good, how about you?" Patient continues to remain oriented to name, , and general place (hospital) but could not answer why she was here. Upon asking to try opening her eyes, she was able to open them to about 50-60% with good eye contact. When asked about L hip pain, patient denied having any. Denied any discomfort or pain at this time, denies headache, chest pain, shortness of breath. Review of Systems Review of Systems: as above Physical Exam Physical Exam: constitutional: A&Ox3 (see subjective) HEENT: anicteric sclerae, eyes 50-60% open; significant hearing improvement with L hearing aid in place CV: irregularly irregular with holosystolic murmur, 2+ carotid pulses b/l, 2+ radial pulses Pulmonary: clear to auscultation b/l GI: normal bowel sounds, nontender to palpation Neuro: - mild L-sided facial droop on smile - sensation intact for RLE, inconsistent /lacking sensation of LLE - able to wiggle fingers on both hands, R>L - good eye contact MSK: - 5/5 strength RUE and b/l LE; 4/5 stren gth (movement against gravity) of LUE - 5/5 model and mold maker strength RUE, 4/5 model and mold maker streng th LUE Results & Data Results & Data Vital Signs (Past 12 Hours) Vital Signs Temp Pulse Resp BP Pulse Ox O2 Del Method 03/17/24 20:35 Room Air 03/17/24 20:31 36.8 C 89 18 138/69 94 Room Air Resident Activity Tracking Resident Involvement: Resident Care Provided Care Provided: Adult Hospital Medicine (3) Closed fracture of neck of left femur Encounter type: initial encounter Qualified Code(s): S72.002A - Fracture of unspecified part of neck of left femur, initial encounter for closed fracture (6) Dementia Dementia behavioral or psychological symptom: with agitation Dementia severity: unspecified severity Dementia type: unspecified type Qualified Code(s): F03.911 - Unspecified dementia, unspecified severity, with agitation (8) GERD (gastroesophageal reflux disease) Esophagitis presence: esophagitis presence not specified Qualified Code(s): K21.9 - Gastro-esophageal reflux disease without esophagitis
[2024-03-18 08:18] LABS: Hematocrit (blood only) 29.8 % (37.0-47.0); Hemoglobin 9.7 g/dl (12.0-16.0); Mean Corpuscular Hemoglobin 29.3 pg (25.0-34.0); Mean Corpuscular Hgb Conc 32.6 g/dL (32.0-36.0); Mean Platelet Volume 9.4 fL (9.4-12.4); Platelet Count 281 K/uL (130-400); RDW Coefficient of Variation 14.8 % (11.5-14.5); RDW Standard Deviation 49.5 fL (36.4-46.3); Red Blood Count 3.31 M/uL (4.20-5.40); White Blood Count 6.91 K/ul (4.8-10.8)
[2024-03-18 08:30] LABS: BUN Creatinine Ratio 21.6 (10-20); Calcium 8.1 mg/dl (8.6-10.3); Creatinine Clr Calc Pharmacy 20.4 ml/min; Est GFR (African American) 40.6 ml/min; Potassium 3.8 mmol/L (3.5-5.1)
--- NOTE | 2024-03-18 09:49 | Neurology Progress Note ---
Date of Service March 18, 2024 Assessment & Plan (1) Ischemic stroke: Admission and Anticipated Discharge Date Admission Date: March 11, 2024 Subjective pt this morning alert and not in distress. answering question appropriately. Results & Data Vital Signs (Past 12 Hours) Vital Signs Temp Pulse Resp BP Pulse Ox O2 Del Method 03/18/24 07:26 Room Air 03/18/24 07:26 36.7 C 76 20 151/74 H 96 Room Air Exam (Neuro) Physical Exam: Neuro: Mental: Alert, knew [facility] as city. knew 2023. , fluent speech, normal comprehension, no apraxia, left hemineglect. CN: PERRL, Full EOM, symmetric face, Motor: No abnormal movements, moves upper limbs well. Coord: intact grossly with upper limbs Gait: deferred Impression: 89-year-old female with several presentations to the [facility] over the past few months with episodic left-sided weakness, several mechanical falls, found to have a near complete occlusion of the proximal right internal carotid artery, subsequently placed on dual antiplatelet therapy. She unfortunately fell again and was diagnosed with a left femoral neck fracture on March 11, 2024 and underwent left total hip arthroplasty the following day. She was noted to have a recurrence of left-sided weakness and a repeat CT of the head completed January 13 revealed an acute appearing cortical right parietal infarct. No hemorrhage. Clinically, this patient has a mild left hemiparesis and left hemineglect which is likely related to the observed acute right parietal lobe infarct. The observed infarct does appear to have a watershed distribution (between right MCA and right CHIEF INSPECTOR) potentially implicating a hypoperfusion injury. On the other hand, carotid embolic stroke cannot be excluded. MRI brain last night showing similar finding as before for watershed area infarct rt parietal area, likely from hypoperfusion. pt overall stable. Recommendations: continue stroke care as now DAPT as now. I do agree that vascular surgery likely need to intervene as planned pending their findings for rt ICA narrowing in the future. avoid hypotension not much else to add at this point. please call again if new question. Chart reviewed I have spent more than 50% educating patient about potential diagnosis and neurological evaluation and coordinating care with patient's treatment team. Total time spent (including chart review and coordination of care): 35 min (this includes chart review). PG Care Time/CCT Total # of Minutes Spent Total Time Spent with Patient: Total time spent is greater than 50% in coordination of care (as documented) at patient's floor/unit and/or counseling patient: Coding Level of Care Code 76178 SUB INP/OBS CARE 2MIN Diagnoses Ischemic stroke I63.9
--- NOTE | 2024-03-18 10:30 | Consultation ---
Date of Consultation March 18, 2024 Assessment & Plan (1) Stenosis of right internal carotid artery with cerebral infarction: Pt with severe (99%) stenosis of R ICA by CTA, and R hemispheric CVA by MRI. Pt also seen by Dr Quintanilla today. Recommends pt undergo R TCAR procedure. Discussed at length with pt's daughter by phone. She is in agreement. Will schedule within next few weeks. Pt is to remain on DAPT and statin medications through surgery and 1 year post op. History of Present Illness Reason for Consultation: R ICA stenosis Attending Physician: Duarte Du DO History of Present Illness 89 yo f with hx of TIA, HTN, dementia, CKD, anxiety, hypothyroidism, hypercholesterolemia, admitted with L femoral fx after a fall at her SNF, seen in consultation today for severe R ICA stenosis noted on CTA neck done after pt developed L arm weakness. Pt unable to relate any meaningful hx d/t dementia. Admits her L arm is weak. Denies MACE, chest pain, SOB, leg pain, MACE, arm pain, other complaints. DAPT has been initiated by medical team. MRI brain demonstrates R hemispheric CVA, CTA neck demonstrates 99% stenosis of R ICA. Allergies Allergy/AdvReac Type Severity Reaction Status Date / Time Sulfa (Sulfonamide Allergy Intermediate Rash Verified 03/06/24 08:45 Antibiotics) adhesive Allergy Mild rash Verified 03/06/24 08:45 enalaprilat [From Vasotec] Allergy Unknown Unknown Verified 03/06/24 08:45 atorvastatin AdvReac Severe Unconscious Verified 03/06/24 08:45 Home Medications Medication Instructions Recorded Confirmed Type acetaminophen 500 mg tablet 1,000 mg PO HS 02/03/24 03/11/24 History (Tylenol Extra Strength) amlodipine 5 mg tablet 5 mg PO BID 02/03/24 03/11/24 History carvedilol 6.25 mg tablet 6.25 mg PO BID 02/03/24 03/11/24 History cholecalciferol (vitamin D3) 50 50 mcg PO QAM 02/03/24 03/11/24 History mcg (2,000 unit) capsule (Vitamin D3) cyclosporine 0.05 % eye drops in a 1 drp OPB BID 02/03/24 03/11/24 History dropperette duloxetine 20 mg capsule,delayed 20 mg PO QAM 02/03/24 03/11/24 History release famotidine 20 mg tablet 20 mg PO BID 02/03/24 03/11/24 History fluorometholone 0.1 % eye 1 drp OPB QID 02/03/24 03/11/24 History drops,suspension furosemide 20 mg tablet 20 mg PO QAM 02/03/24 03/11/24 History levothyroxine 125 mcg tablet 125 mcg PO QAM 02/03/24 03/11/24 History melatonin 5 mg tablet 5 mg PO HS 02/03/24 03/11/24 History risperidone 0.5 mg tablet 0.5 mg PO HS 02/03/24 03/11/24 History vit C 250 mg-vit E 90 mg-zinc 40 1 tab PO BID 02/03/24 03/11/24 History mg-copper 1 [id number]-[id number]-hpdsyp capsule (PreserVision AREDS-2) clopidogrel 75 mg tablet 75 mg PO QAM 30 days #30 tabs 02/15/24 03/11/24 Rx acetaminophen 325 mg tablet 650 mg PO Q6 PRN Fever Or Pain 02/28/24 03/11/24 History multivitamin 1 tab PO QAM 02/28/24 03/11/24 History omega 6-ozs-kff-fish oil 1,200 mg 1 cap PO QAM 02/28/24 03/11/24 History (144 mg-216 mg) capsule (Fish Oil) rosuvastatin 20 mg tablet 20 mg PO HS 02/28/24 03/11/24 History buspirone 10 mg tablet 10 mg PO TID 03/06/24 03/11/24 History sodium chloride 1,000 mg soluble 1,000 mg PO DAILY 03/06/24 03/11/24 History tablet peg 400 0.4 %-propylene glycol 1 drp OPB QID 03/11/24 03/11/24 History (PF) 0.3 % eye drops (Systane Ultra (PF)) Patient History Medical History TIA (transient ischemic attack) unspecified UTI (urinary tract infection) site not specified Localized edema Localized enlarged lymph nodes Nonrheumatic aortic (valve) stenosis Colon polyp Acute kidney failure Hypertensive chronic kidney disease with stage 1 through stage 4 chronic kidney disease, or unspecified chronic kidney disease Urinary retention Unspecified dementia, unspecified severity, without behavioral disturbance, psychotic disturbance, mood disturbance, and anxiety Delirium due to known physiological condition Transient ischemic attack (TIA) Anemia Hypertension Hypothyroidism Sjogren's syndrome Sprain of left ankle Sprain of left foot Hypertensive urgency Constipation Fall Hypomagnesemia Right elbow pain Dermatitis Neuropathy Left hand pain Cervical muscle strain Peripheral edema Insomnia Sensorineural hearing loss (SNHL) of both ears Memory changes Increased urinary frequency Aortic valve sclerosis Arteriosclerosis of carotid artery Benign neoplasm of colon Cervical lymphadenopathy Chronic hoarseness Mixed hyperlipidemia Osteoporosis Rotator cuff tear, left Unsteady gait Vocal cord paralysis Trigeminal neuralgia right Spinal stenosis Osteoarthritis IBS (irritable bowel syndrome) GERD (gastroesophageal reflux disease) Macular degeneration Claustrophobia Cardiac murmur Hyperlipidemia HX OF Surgical History Hx of arthroscopy of shoulder 2019, left History of lumpectomy History of hysterectomy History of bladder surgery BLADDER TACK History of total abdominal hysterectomy and bilateral salpingo-oophorectomy History of colonoscopy History of throat surgery THURNWALDT CYST BENIGN History of tooth extraction History of tonsillectomy History of adenoidectomy Family History Son Family history of diabetes mellitus Father Cancer Sister Cancer Breast cancer Heart disease H/O heart artery stent Mother Myocardial infarction Grandmother AAA (abdominal aortic aneurysm) Myocardial infarction Denies family history of Ovarian cancer Prostate cancer Colorectal cancer Social History Smoking Status: Never smoker Hx Alcohol Use: No Hx Substance Use: No Preferred Language: Japanese Communication Ability: Impaired Communication Ability Comment: hard of hearing Visual Impairment: Limited Hearing Ability: Use of Hearing Aid Career Technical Counselor Required: No Beliefs That Will Affect Care: Congregation marital status: / Current Living Situation: Long Term Current Living Situation Comment: [facility] current occupational status: retired How many Children do You have: 3 Feels Safe at Home: Yes Childhood Exposure to Second-Hand Smoke: No Diet: Soft caffeine: Yes during the past year weight has: remained stable Dental Care, Regularly: No Physical Activity Frequency: Does not Exercise Seatbelt Use: always Sunscreen Use: Yes Assistive Devices: Walker Review of Systems Review of Systems: Unobtainable due to cognitive status Physical Exam Constitutional: + thin, + frail appearing, cooperative a nd comfortable; not in distress ENMT: Ears: + hearing impairment Neck: trachea midline Respiratory: normal respiratory effort, lungs clear to auscultation Auscultation: + diminished lung sounds Cardiovascular: Rate/Rhythm: regular rate and regular rhythm Vessels: posterior tibial pulses present, dorsalis pedis pulses present and radial pulses present; + abnormal peripheral pulses Extremities: normal capillary refill; no edema Gastrointestinal (Abdomen): Inspection/Auscultation: abdomen normal to inspection Musculoskeletal: Extremities: + abnormal strength (RUE/RLE 5/5, LUE 3/5 LLE 4/5) Skin: no rashes, warm and dry Neurologic: moves all extremities, + focal motor deficit, awake and + confused Psychiatric: Orientation: alert, oriented to person, oriented to place (states "the hospital") and oriented to time (states "2023", unable to differentiate further) Affect: + flat affect Results & Data Vital Signs (Past 12 Hours) Vital Signs Temp Pulse Resp BP Pulse Ox O2 Del Method 03/18/24 07:26 Room Air 03/18/24 07:26 36.7 C 76 20 151/74 H 96 Room Air
--- NOTE | 2024-03-18 15:17 | XCELERA ---
[id number]
--- NOTE | 2024-03-18 18:07 | Billing Data ---
Date of Service March 18, 2024 Coding Level of Care Code 40868 SUB INP/OBS CARE
--- NOTE | 2024-03-19 10:52 | Hospitalist Progress Note ---
Date of Service March 19, 2024 Assessment & Plan (1) Stenosis of right internal carotid artery with cerebral infarction: (2) Kel-neglect of left side: (3) Right carotid artery occlusion: (4) Ischemic stroke: (5) Closed pelvic fracture: (6) Closed fracture of neck of left femur: (7) Delirium: Plan Ischemic Stroke | Stenosis of right internal carotid artery | History of TIA -Brain MRI 03/17/24, "multiple small to tiny foci of acute ischemic injuries within the right temporal, occipital, parietal and frontal lobes concerning for embolic phenomena." -Neurology consulted, clinically her mild L hemiparesis and hemineglect likely related to the above finding on imaging -Severe (99%) stenosis of R ICA by CTA on 03/06/24, R hemispheric CVA by MRI and CT head -Pt seen by Dr Quintanilla today, recommends pt undergo R TCAR procedure in next few weeks, continue dual anti-platelet therapy for now with aspirin and Plavix Closed fracture of neck of left femur | S/P hemiarthroplasty -Left cement hemiarthroplasty on 03/12/24, procedure successful per orthopedic surgery notes -Post-op drop in hgb has stabilized, s/p 1u PRBCs -Awaiting bed availability at [facility] Chronic hyponatremia -Stable, chronically around sodium of 133 -Continue intermittent monitoring Acute hypokalemia, resolved -K of 3.8, continue intermittent monitoring Dementia -Risperidone 0.5mg PO QHS for -Fall precautions -Continue home Buspirone 10mg and Cymbalta 20mg qAM GERD (gastroesophageal reflux disease) continue Pepcid 20mg PO BID Admission and Anticipated Discharge Date Admission Date: March 11, 2024 Supervising Physician Co-Signing Physician Notes I personally examined the patient and verified all carranza points of history and exam, discussed case, and agree with decision making with Dr Rodrigues no new issues, vascular input appreciated. family present including a nephew who is a family physician i have worked with previously. updated to the best of my ability and to pt/family's satisfaction. vitals noted nad heent nc at mmm breathing unlabored no accessory muscles good effort skin no rashes no pallor or icterus neuro no focal deficits CVAmed management, secondary risk reduction, SNF. TCAR as an outpatient in the near future, appreciate vascular assistance hip fracturestatus post repair. PT/OT eval and treat. Outpatient bone health management. DVT proph - per ortho (antiplatelets, SCDs) otherwise as above pending SNF - case management working on placement Subjective Patient was seen and examined at bedside. Patient had just finished eating breakfast and taking morning pills with nursing at time of encounter. Patient is awake and interactive, denies any concerns or discomfort at present. Review of Systems Review of Systems: As per above Physical Exam Constitutional: Comfortable, no acute distress. Eyes: + anicteric sclerae; no conjunctival abn ormality ENMT: Ears: no external ear abnormality Nose: no external nose abnormality Moist mucous membranes Respiratory: normal respiratory effort; no respiratory distress Auscultation: lungs clear to auscultation bilaterally Cardiovascular: Rate/Rhythm: regular rate and regular rhythm Gastrointestinal (Abdomen): Abdomen soft and nondistended, no pain with palpation. Skin: no rashes, warm and dry Neurologic: Decreased left upper extremity strength and security support analyst strength Psychiatric: Awake and alert, able to express needs verbally Results & Data Results & Data Vital Signs (Past 12 Hours) Vital Signs Temp Pulse Resp BP Pulse Ox O2 Del Method 03/19/24 07:23 36.6 C 93 H 16 169/73 H 95 Room Air Resident Activity Tracking Resident Involvement: Resident Care Provided Care Provided: Adult Hospital Medicine
--- NOTE | 2024-03-19 14:54 | Communication Note ---
Date of Service: March 19, 2024 Pts taking clopidogrel require platelet function testing to be done prior to their TCAR procedure, but unfortunately this testing is not offered at [facility], and only offered specific days of the week from our office lab. Since we are unsure of her discharge date and have her currently scheduled for Monday, 03/26 in [place], have switched her from clopidogrel to ticagrelor, which requires no testing. Also ordered carotid US of her R ICA to be done to recheck for patentcy since she had an event after her most recent CTA neck. Pt will need to be discharged on ticagrelor and ASA.
--- NOTE | 2024-03-19 18:03 | Billing Data ---
Date of Service March 19, 2024 Coding Level of Care Code 72770 SUB INP/OBS CARE
--- NOTE | 2024-03-19 19:40 | Ultrasound Report ---
RIGHT CAROTID DOPPLER STUDY HISTORY: recheck R ICA for patentcy COMPARISON: Neck CTA 03/06/2024. TECHNIQUE: Real-time, grayscale, and color Doppler sonography of the carotid arteries was performed. Imaging reviewed in the transverse and longitudinal planes. All measurements were calculated based on NASCET criteria. FINDINGS: Antegrade flow is seen in the right vertebral artery. Severe calcified plaque within the proximal right internal carotid artery again noted. The peak systolic velocity within the right ICA is 573 cm/s proximally. The right systolic ratio is 7 .7. The right common carotid and right external carotid arteries are patent. IMPRESSION: Severe/critical stenosis again noted within the proximal right internal carotid artery without eviden ce for occlusion. This is similar to the prior neck CTA. ACT 112: Negative or not required by law. Electronically signed by: Lee Rose M.D. 03/19/2024 7:38 PM
[2024-03-19] MEDS: TICAGRELOR 90 MG TAB PO SCH (20:28)
[2024-03-19] MEDS: MELATONIN 3 MG TAB PO PRN (23:43)
--- NOTE | 2024-03-20 07:17 | Hospitalist Progress Note ---
Date of Service March 20, 2024 Assessment & Plan (1) Stenosis of right internal carotid artery with cerebral infarction: (2) Kel-neglect of left side: (3) Right carotid artery occlusion: (4) Ischemic stroke: (5) Closed pelvic fracture: (6) Closed fracture of neck of left femur: (7) Delirium: Plan Ischemic Stroke | Stenosis of right internal carotid artery | History of TIA -Brain MRI 03/17/24 shows "multiple small to tiny foci of acute ischemic injuries within the right temporal, occipital, parietal and frontal lobes concerning for embolic phenomena." -Neurology consulted, clinically her mild L hemiparesis and hemineglect likely related to the above finding on imaging -Severe (99%) stenosis of R ICA by CTA on 03/06/24, R hemispheric CVA by MRI and CT head - TCAR procedure w/ Dr. Quintanilla scheduled for Monday03/26/24 - continue dual anti-platelet therapy for now with aspirin 81mg daily and Ticagrelor 90mg BID (changed from Plavix since does not need routine monitoring) Closed fracture of neck of left femur | S/P hemiarthroplasty -Left cement hemiarthroplasty on 03/12/24, procedure successful per orthopedic surgery notes -Post-op drop in hgb has stabilized, s/p 1u PRBCs - [facility] will not offer bed, so pending bed placement at [facility] Chronic hyponatremia -Stable, chronically around sodium of 133 -Continue intermittent monitoring Acute hypokalemia, resolved -K of 3.8, continue intermittent monitoring Dementia -Risperidone 0.5mg PO QHS for -Fall precautions -Continue home Buspirone 10mg and Cymbalta 20mg qAM GERD (gastroesophageal reflux disease) continue Pepcid 20mg PO BID Admission and Anticipated Discharge Date Admission Date: March 11, 2024 Supervising Physician Co-Signing Physician Notes I personally examined the patient and verified all carranza points of history and exam, discussed case, and agree with decision making with Dr Crowder no new issues, awaiting SNF. vitals noted nad at rest heent nc at mmm breathing unlabored no accessory muscles good effort skin no rashes no pallor or icterus neuro no focal deficits at rest CVAmed management, secondary risk reduction, SNF, PT/OT. TCAR as an ou tpatient in the near future, appreciate vascular assistance hip fracturestatus post repair. PT/OT eval and treat. Outpatient bone health management. DVT proph - per ortho (antiplatelets, SCDs) otherwise as above pending SNF - case management working on placement, hopefully bed soon Subjective Patient was seen and examined at bedside. Patient was sitting up in her bed eating breakfast. Alert, oriented to name "Kathy Aragon", partially oriented to "January" but could not come up with correct year, and place "hospital." Denies being in any pain, denies any complaints at this time. Moving all extremities well, including LUE. No fever, pain, headache, dizziness, nausea, vomiting, chest pain, or abdominal pain at this time. 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
[2024-03-20] MEDS: CHOLECALCIFEROL 25 MCG (1000 UNITS) TAB PO SCH (09:15)
[2024-03-20 09:38] LABS: Hematocrit (blood only) 30.2 % (37.0-47.0); Hemoglobin 9.8 g/dl (12.0-16.0); Mean Corpuscular Hgb Conc 32.5 g/dL (32.0-36.0); Mean Corpuscular Volume 89.3 fL (80.0-100.0); Mean Platelet Volume 9.3 fL (9.4-12.4); Platelet Count 355 K/uL (130-400); RDW Coefficient of Variation 14.6 % (11.5-14.5); RDW Standard Deviation 48.5 fL (36.4-46.3); Red Blood Count 3.38 M/uL (4.20-5.40); White Blood Count 10.26 K/ul (4.8-10.8)
[2024-03-20 09:56] LABS: BUN Creatinine Ratio 28.5 (10-20); Calcium 8.5 mg/dl (8.6-10.3); Creatinine Clr Calc Pharmacy 21.1 ml/min; Est GFR (African American) 42.1 ml/min; Est GFR (Non-African American) 36.3 ml/min; Potassium 4.1 mmol/L (3.5-5.1)
--- NOTE | 2024-03-20 18:14 | Billing Data ---
Date of Service March 20, 2024 Coding Level of Care Code 71468 IN/OBS DISCH 30 MIN/LESS
[2024-03-20 20:18] VITALS: RESP 18
--- NOTE | 2024-03-21 06:45 | Hospitalist Progress Note ---
Date of Service March 21, 2024 Assessment & Plan (1) Stenosis of right internal carotid artery with cerebral infarction: (2) Kel-neglect of left side: (3) Right carotid artery occlusion: (4) Ischemic stroke: (5) Closed pelvic fracture: (6) Closed fracture of neck of left femur: (7) Delirium: Plan Ischemic Stroke | Stenosis of right internal carotid artery | History of TIA -Brain MRI 03/17/24 shows "multiple small to tiny foci of acute ischemic injuries within the right temporal, occipital, parietal and frontal lobes concerning for embolic phenomena." -Neurology consulted, clinically her mild L hemiparesis and hemineglect likely related to the above finding on imaging -Severe (99%) stenosis of R ICA by CTA on 03/06/24, R hemispheric CVA by MRI and CT head - TCAR procedure w/ Dr. Quintanilla scheduled for Monday03/26/24 - continue dual anti-platelet therapy for now with aspirin 81mg daily and Ticagrelor 90mg BID (changed from Plavix since does not need routine monitoring) Closed fracture of neck of left femur | S/P hemiarthroplasty -Left cement hemiarthroplasty on 03/12/24, procedure successful per orthopedic surgery notes -Post-op drop in hgb has stabilized, s/p 1u PRBCs - [facility] will not offer bed, so pending bed placement at [facility] Chronic hyponatremia -Stable, chronically around sodium of 133 -Continue intermittent monitoring Acute hypokalemia, resolved -K of 3.8, continue intermittent monitoring Dementia -Risperidone 0.5mg PO QHS for -Fall precautions -Continue home Buspirone 10mg and Cymbalta 20mg qAM GERD (gastroesophageal reflux disease) continue Pepcid 20mg PO BID Admission and Anticipated Discharge Date Admission Date: March 11, 2024 Subjective Patient was seen and examined at bedside. Patient was sitting up in her bed eating breakfast. Alert, oriented to name "Kathy Aragon", partially oriented to "January" but could not come up with correct year, and place "hospital." Denies being in any pain, denies any complaints at this time. Moving all extremities well, including LUE. No fever, pain, headache, dizziness, nausea, vomiting, chest pain, or abdominal pain at this time. Results & Data Results & Data Vital Signs (Past 12 Hours) Vital Signs Temp Pulse Resp BP Pulse Ox O2 Del Method 03/20/24 20:17 36.8 C 87 18 141/66 H 97 Room Air 03/20/24 19:58 Room Air
[2024-03-21 08:01] VITALS: BP 107/73; PULSE 71; TEMP 97.7; O2SAT 96
--- NOTE | 2024-03-21 18:43 | Billing Data ---
Date of Service March 21, 2024 Coding Level of Care Code 02309 IN/OBS DISCH 30 MIN/LESS
== END 2024-03-21 13:49 | DRG 957 ==
LOC: ED 16:56 → SUATTDRO 19:45 → 3N 19:45

== ENCOUNTER 2024-03-26 10:04 | Inpatient (IN) ==
--- NOTE | 2024-03-25 10:22 | Anesthesiology Consultation ---
Date of Service March 25, 2024 Assessment & Plan (1) Encounter for pre-operative examination: Plan - hospitalist progress note 03/20/24 [facility], [place]: "...Ischemic Stroke | Stenosis of right internal carotid artery | History of TIA-Brain MRI 03/17/24 shows "multiple small to tiny foci of acute ischemic injuries within the right temporal, occipital, parietal and frontal lobes concerning for embolic phenomena.- Neurology consulted, clinically her mild L hemiparesis and hemineglect likely related to the above finding on imaging-Severe (99%) stenosis of R ICA by CTA on 03/06/24, R hemispheric CVA by MRI and CT head - TCAR procedure w/ Dr. Quintanilla scheduled for Monday03/26/24- continue dual anti-platelet therapy for now with aspirin 81mg daily and Ticagrelor 90mg BID (changed from Plavix since does not need routine monitoring). Closed fracture of neck of left femur | S/P hemiarthroplasty-Left cement hemiarthroplasty on 03/12/24, procedure successful per orthopedic surgery [id number] drop in hgb has stabilized, s/p 1u PRBCs...Chronic hyponatremia-Stable, chronically around sodium of 133...Acute hypokalemia, resolved...Dementia..." - Per nuclear medicine specialist on 03/25/24: No known infectious disease contacts, current infectious disease symptoms in past 10 days or COVID positive test result in the past 30 days. Chart Review Chart Review: Acceptable Risk for Surgery and Patient NOT seen in Pre Admission Testing History Surgery Operation Date: 03/26/24 12:00 Proposed Procedures p Right Transcarotid Artery Revascularization - Mike Quintanilla MD Height/Weight Height: 5 ft 4 in Weight: 46 kg Allergies Allergy/AdvReac Type Severity Reaction Status Date / Time Sulfa (Sulfonamide Allergy Intermediate Rash Verified 03/25/24 13:21 Antibiotics) adhesive Allergy Mild rash Verified 03/25/24 13:21 enalaprilat [From Vasotec] Allergy Unknown Unknown Verified 03/25/24 13:21 atorvastatin AdvReac Severe Unconscious Verified 03/25/24 13:21 Medications Home Medications Medication Instructions Recorded Confirmed Last Taken acetaminophen 500 mg tablet 1,000 mg PO HS 02/03/24 03/25/24 03/05/24 (Tylenol Extra Strength) amlodipine 5 mg tablet 5 mg PO BID 02/03/24 03/25/24 03/05/24 20:00 carvedilol 6.25 mg tablet 6.25 mg PO BID 02/03/24 03/25/24 03/05/24 20:00 cholecalciferol (vitamin D3) 50 50 mcg PO QAM 02/03/24 03/25/24 03/06/24 mcg (2,000 unit) capsule (Vitamin D3) cyclosporine 0.05 % eye drops in a 1 drp OPB BID 02/03/24 03/25/24 03/05/24 dropperette duloxetine 20 mg capsule,delayed 20 mg PO QAM 02/03/24 03/25/24 03/05/24 release famotidine 20 mg tablet 20 mg PO BID 02/03/24 03/25/24 03/05/24 fluorometholone 0.1 % eye 1 drp OPB QID 02/03/24 03/25/24 03/06/24 16:00 drops,suspension furosemide 20 mg tablet 20 mg PO QAM 02/03/24 03/25/24 03/05/24 levothyroxine 125 mcg tablet 125 mcg PO QAM 02/03/24 03/25/24 03/06/24 melatonin 5 mg tablet 5 mg PO HS 02/03/24 03/25/24 03/05/24 risperidone 0.5 mg tablet 0.5 mg PO HS 02/03/24 03/25/24 03/05/24 vit C 250 mg-vit E 90 mg-zinc 40 1 tab PO BID 02/03/24 03/25/24 03/05/24 mg-copper 1 ty-afjwly-ceizzh capsule (PreserVision AREDS-2) acetaminophen 325 mg tablet 650 mg PO Q6 PRN Fever Or Pain 02/28/24 03/25/24 03/01/24 multivitamin 1 tab PO QAM 02/28/24 03/25/24 03/05/24 omega 6-gim-afv-fish oil 1,200 mg 1 cap PO QAM 02/28/24 03/25/24 03/05/24 (144 mg-216 mg) capsule (Fish Oil) rosuvastatin 20 mg tablet 20 mg PO HS 02/28/24 03/25/24 03/05/24 buspirone 10 mg tablet 10 mg PO TID 03/06/24 03/25/24 03/05/24 sodium chloride 1,000 mg soluble 1,000 mg PO DAILY 03/06/24 03/25/24 03/05/24 tablet peg 400 0.4 %-propylene glycol 1 drp OPB QID 03/11/24 03/25/24 Unknown (PF) 0.3 % eye drops (Systane Ultra (PF)) aspirin 81 mg tablet,delayed 81 mg PO QAM 60 days #60 tabs 03/21/24 03/25/24 Unknown release ticagrelor 90 mg tablet 90 mg PO BID on DAPT - Aspirin 03/21/24 03/25/24 Unknown 81mg + Ticagrelor 90mg BID #60 tabs bisacodyl 10 mg rectal suppository 10 mg TN DAILY PRN Constipation 03/25/24 03/25/24 Unknown (Dulcolax (bisacodyl)) docusate sodium 100 mg capsule 100 mg PO DAILY PRN Constipation 03/25/24 03/25/24 Unknown (Colace) Past Medical History Medical History (Updated 03/25/24 @ 14:08 by Luz Maria Gamboa PA-C) Anemia Anxiety Aortic valve sclerosis Cardiac murmur Cervical lymphadenopathy Cervical muscle strain Chronic hoarseness Claustrophobia Closed fracture of neck of left femur (~03/11/24) displaced subcapital left femoral neck fracture -due to fall - surgery 03/12/24 Closed pelvic fracture (~03/11/24) small nondisplaced right sacral ala fracture- due to fall Constipation Delirium due to known physiological condition Dermatitis Gutierrez catheter in place GERD (gastroesophageal reflux disease) Hx of colonic polyps Hx: UTI (urinary tract infection) Hyperlipidemia Hypertension Hypertensive chronic kidney disease with stage 1 through stage 4 chronic kidney disease, or unspecified chronic kidney disease Hypertensive urgency Hypothyroidism IBS (irritable bowel syndrome) Insomnia Ischemic stroke (02/2024) Localized edema Localized enlarged lymph nodes Macular degeneration Memory changes MGUS (monoclonal gammopathy of unknown significance) Mixed hyperlipidemia Neuropathy Nonrheumatic aortic (valve) stenosis Osteoarthritis Osteoporosis Peripheral edema Recurrent falls Right carotid artery occlusion Sensorineural hearing loss (SNHL) of both ears Sjogren's syndrome Spinal stenosis Transient ischemic attack (TIA) Trigeminal neuralgia right Unsteady gait Urinary retention Vocal cord paralysis Past Family History Family History Son Family history of diabetes mellitus Father Cancer Sister Cancer Breast cancer Heart disease H/O heart artery stent Mother Myocardial infarction Grandmother AAA (abdominal aortic aneurysm) Myocardial infarction Denies family history of Ovarian cancer Prostate cancer Colorectal cancer Past Surgical History Surgical History (Updated 03/25/24 @ 13:41 by Apoorva Lira) History of adenoidectomy History of bladder surgery BLADDER TACK History of hemiarthroplasty of left hip (03/12/24) due to fall History of hysterectomy History of lumpectomy History of throat surgery THURNWALDT CYST BENIGN History of tonsillectomy History of tooth extraction History of total abdominal hysterectomy and bilateral salpingo-oophorectomy History of transurethral resection of bladder tumor (TURBT) (03/06/24) Hx of arthroscopy of shoulder 2018, left Hx of colonoscopy with polypectomy Social History Smoking Status: Never smoker Hx Alcohol Use: No Alcohol type: wine alcohol intake frequency: holidays/special occasions only Hx Substance Use: No substance use type: does not use Lab Results Anesthesia Preop Results Results Anesthesia Widget: WBC 10.26 K/ul (4.8-10.8) 03/20/24 Hgb 9.8 g/dl (12.0-16.0) L 03/20/24 Hct 30.2 % (37.0-47.0) L 03/20/24 Plt 355 K/uL (130-400) 03/20/24 Na 134 mmol/L (136-145) L 03/20/24 K 4.1 mmol/L (3.5-5.1) 03/20/24 Cl 103 mmol/L (98-107) 03/20/24 CO2 23 mmol/L (21-32) 03/20/24 BUN 37 mg/dl (6-23) H 03/20/24 Creat 1.30 mg/dl (0.6-1.2) H 03/20/24 Glucose Level 136 mg/dl (70-99(Fasting)) H 03/20/24 POC Glucose 166 mg/dl (70-99) H 02/06/24 PT 10.4 Seconds (9.0-12.0) 03/11/24 PTT 25 Seconds (21-31) 03/06/24 INR 1.0 (0.9-1.1) 03/11/24 TSH 0.449 uIu/ml (0.300-4.500) 03/11/24 HA1c 6.1 % (4.5-5.6) H 02/07/24 Urine Color Yellow 03/11/24 Urine Appearance Cloudy (Clear) A 03/11/24 Urine pH 6.0 (4.5-7.5) 03/11/24 Urine Specific [place] 1.020 (1.000-1.030) 03/11/24 Urine Protein 4+ (Negative) H 03/11/24 Urine Glucose (UA) Negative (Negative) 03/11/24 Urine Ketones Negative (Negative) 03/11/24 Urine Blood 2+ (Negative) H 03/11/24 Urine Nitrite Negative (Negative) 03/11/24 Urine Bilirubin Negative (Negative) 03/11/24 Urine Urobilinogen Negative (Negative) 03/11/24 Urine Leukocyte Esterase 2+ (Negative) H 03/11/24 Urine WBC (Auto) 11-20 /hpf (0-5) H 03/11/24 Urine RBC (Auto) >20 /hpf (0-2) H 03/11/24 Urine Hyaline Casts (Auto) >20 /lpf (0-2) H 03/11/24 Urine Epithelial Cells (Auto) 3-5 /hpf (0-2) H 03/11/24 Urine Bacteria (Auto) None Seen (None Seen) 03/11/24 Coronavirus OC43 (PCR) Not Detected (NotDetected) 03/11/24 Coronavirus HKU1 (PCR) Not Detected (NotDetected) 03/11/24 Coronavirus 229E (PCR) Not Detected (NotDetected) 03/11/24 COVID-19 PCR NEGATIVE (Negative) 03/23/24 Coronavirus NL63 (PCR) Not Detected (NotDetected) 03/11/24 SARS-CoV-2 RNA (RT-PCR) Negative (Negative) 02/28/24 Blood Type O Positive 03/12/24 Antibody Screen NEGATIVE 03/12/24 Testing Electrocardiogram Date: 03/11/24 Sinus rhythm with premature supraventricular complexes, rate 91 bpm Right atrial enlargement RBBB Nonspecific ST and T wave abnormality Chest X-Ray Date: 03/11/24 *1view* Stable mild cardiomegaly. Otherwise, no acute process within the chest. Echocardiogram Date: 03/18/24 EF 60-64% No LV regional wall motion abnormalities Mild cLVH No significant valvular pathology Cervical Spine Date: 03/11/24 No fractures within the cervical spine. Other Testing Carotid doppler 03/19/24 Severe/critical stenosis again noted within the proximal right internal carotid artery without evidence for occlusion. This is similar to the prior neck CTA. Brain MRI 03/17/24 Multiple small to tiny foci of acute ischemic injuries within the right temporal, occipital, parietal and frontal lobes concerning for embolic phenomena. Recommend CT exam of the head and neck for further evaluation. Head CT 03/16/24 1. Acute right parietal infarct. 2. No acute intracranial hemorrhage or midline shift. Head and neck CTA 03/06/24 1. High-grade/critical stenosis within the proximal right internal carotid ar rajesh of up to 99% which is similar to the prior study. 2. Approximately 60% focal stenosis within the takeoff of the left internal carotid artery due to the atherosclerotic plaque.. 3. The bilateral vertebral arteries and bilateral common carotid arteries are patent. Mild multifocal narrowing seen throughout the majority of the cerebral arteries without high-grade stenosis, occlusion, or aneurysm. This is similar to the prior study.
--- NOTE | 2024-03-25 14:14 | PAT Medication Instructions ---
Medication Instructions Date of Service March 25, 2024 Home Medications Medication Instructions Recorded aspirin 81 mg tablet,delayed 81 mg PO QAM 60 days #60 tabs 03/21/24 release ticagrelor 90 mg tablet 90 mg PO BID on DAPT - Aspirin 03/21/24 81mg + Ticagrelor 90mg BID #60 tabs acetaminophen 500 mg tablet (Tylenol Extra Strength) 1,000 mg PO HS amlodipine 5 mg tablet 5 mg PO BID carvedilol 6.25 mg tablet 6.25 mg PO BID cholecalciferol (vitamin D3) 50 mcg (2,000 unit) capsule (Vitamin D3) 50 mcg PO QAM cyclosporine 0.05 % eye drops in a dropperette 1 drp OPB BID duloxetine 20 mg capsule,delayed release 20 mg PO QAM famotidine 20 mg tablet 20 mg PO BID fluorometholone 0.1 % eye drops,suspension 1 drp OPB QID furosemide 20 mg tablet 20 mg PO QAM levothyroxine 125 mcg tablet 125 mcg PO QAM melatonin 5 mg tablet 5 mg PO HS risperidone 0.5 mg tablet 0.5 mg PO HS vit C 250 mg-vit E 90 mg-zinc 40 mg-copper 1 xb-lhsatc-tdkhrq capsule (PreserVision AREDS-2) 1 tab PO BID acetaminophen 325 mg tablet 650 mg PO Q6 PRN multivitamin 1 tab PO QAM omega 4-cjg-hyr-fish oil 1,200 mg (144 mg-216 mg) capsule (Fish Oil) 1 cap PO QAM rosuvastatin 20 mg tablet 20 mg PO HS buspirone 10 mg tablet 10 mg PO TID sodium chloride 1,000 mg soluble tablet 1,000 mg PO DAILY peg 400 0.4 %-propylene glycol (PF) 0.3 % eye drops (Systane Ultra (PF)) 1 drp OPB QID aspirin 81 mg tablet,delayed release 81 mg PO QAM ticagrelor 90 mg tablet 90 mg PO BID on DAPT - Aspirin 81mg + Ticagrelor 90mg BID bisacodyl 10 mg rectal suppository (Dulcolax (bisacodyl)) 10 mg ME DAILY PRN docusate sodium 100 mg capsule (Colace) 100 mg PO DAILY PRN ASK your prescriber and surgeon aspirin 81 mg tablet,delayed release 81 mg PO QAM ticagrelor 90 mg tablet 90 mg PO BID on DAPT - Aspirin 81mg + Ticagrelor 90mg BID STOP taking 2 weeks before surgery (or as soon as possible if surgery is within 2 weeks) vit C 250 mg-vit E 90 mg-zinc 40 mg-copper 1 nw-dinyob-cezysn capsule (PreserVision AREDS-2) 1 tab PO BID omega 8-mwh-klw-fish oil 1,200 mg (144 mg-216 mg) capsule (Fish Oil) 1 cap PO QAM DO NOT take the morning of surgery cholecalciferol (vitamin D3) 50 mcg (2,000 unit) capsule (Vitamin D3) 50 mcg PO QAM furosemide 20 mg tablet 20 mg PO QAM multivitamin 1 tab PO QAM sodium chloride 1,000 mg soluble tablet 1,000 mg PO DAILY bisacodyl 10 mg rectal suppository (Dulcolax (bisacodyl)) 10 mg ME DAILY PRN docusate sodium 100 mg capsule (Colace) 100 mg PO DAILY PRN Take morning of surgery With a small sip of water, OTHERWISE NOTHING TO EAT OR DRINK AFTER MIDNIGHT: amlodipine 5 mg tablet 5 mg PO BID carvedilol 6.25 mg tablet 6.25 mg PO BID cyclosporine 0.05 % eye drops in a dropperette 1 drp OPB BID duloxetine 20 mg capsule,delayed release 20 mg PO QAM famotidine 20 mg tablet 20 mg PO BID fluorometholone 0.1 % eye drops,suspension 1 drp OPB QID levothyroxine 125 mcg tablet 125 mcg PO QAM acetaminophen 325 mg tablet 650 mg PO Q6 PRN(if needed) buspirone 10 mg tablet 10 mg PO TID peg 400 0.4 %-propylene glycol (PF) 0.3 % eye drops (Systane Ultra (PF)) 1 drp OPB QID Take evening before surgery acetaminophen 500 mg tablet (Tylenol Extra Strength) 1,000 mg PO HS amlodipine 5 mg tablet 5 mg PO BID carvedilol 6.25 mg tablet 6.25 mg PO BID cyclosporine 0.05 % eye drops in a dropperette 1 drp OPB BID famotidine 20 mg tablet 20 mg PO BID fluorometholone 0.1 % eye drops,suspension 1 drp OPB QID melatonin 5 mg tablet 5 mg PO HS risperidone 0.5 mg tablet 0.5 mg PO HS acetaminophen 325 mg tablet 650 mg PO Q6 PRN(if needed) rosuvastatin 20 mg tablet 20 mg PO HS buspirone 10 mg tablet 10 mg PO TID peg 400 0.4 %-propylene glycol (PF) 0.3 % eye drops (Systane Ultra (PF)) 1 drp OPB QID Other Notes If you have any questions please call us at [phone] or [phone] or [phone] or [phone]
--- NOTE | 2024-03-26 07:45 | History & Physical Report ---
Date of Service March 26, 2024 History of Present Illness Primary Care Provider: [place] [address] Consultation Signed Patient: YARIEL VALDEZ Admit Date: 03/11/24 MR#: [id number] Att Phy: Duarte Du D.O. Acct ID: [id number] Amanda Phy: Deepti Francois CRNP Date: 1935 Fam Phy: Age: 89 Location: 3 Sex: F Room/Bed: N386-1 cc: ~ *NOTICE TO RECEIVING LIBERTARIAN/AGENCY This information is strictly Confidential and protected under [place] law. [place] law prohibits you from making any further disclosure of this information unless further disclosure is expressly permitted by the written consent of the person to whom it pertains or is authorized by law. A general authorization for the release of medical or other information is not sufficient for this purpose. Hospital accepts no responsibility if the information is made available to any other person, INCLUDING THE PATIENT. Date of Consultation March 18, 2024 Assessment & Plan (1) Stenosis of right internal carotid artery with cerebral infarction: Pt with severe (99%) stenosis of R ICA by CTA, and R hemispheric CVA by MRI. Pt also seen by Dr Quintanilla today. Recommends pt undergo R TCAR procedure. Discussed at length with pt's daughter by phone. She is in agreement. Will schedule within next few weeks. Pt is to remain on DAPT and statin medications through surgery and 1 year post op. History of Present Illness Reason for Consultation: R ICA stenosis Attending Physician: Duarte Du DO History of Present Illness 89 yo f with hx of TIA, HTN, dementia, CKD, anxiety, hypothyroidism, hypercholesterolemia, admitted with L femoral fx after a fall at her [facility], seen in consultation today for severe R ICA stenosis noted on CTA neck done after pt developed L arm weakness. Pt unable to relate any meaningful hx d/t dementia. Admits her L arm is weak. Denies MACE, chest pain, SOB, leg pain, MACE, arm pain, other complaints. DAPT has been initiated by medical team. MRI brain demonstrates R hemispheric CVA, CTA neck demonstrates 99% stenosis of R ICA. Allergies Allergy/AdvReac Type Severity Reaction Status Date / Time Sulfa (Sulfonamide Allergy Intermediate Rash Verified 08/28/24 08:45 Antibiotics) adhesive Allergy Mild rash Verified 03/06/24 08:45 enalaprilat [From Vasotec] Allergy Unknown Unknown Verified 03/06/24 08:45 atorvastatin AdvReac Severe Unconscious Verified 03/06/24 08:45 Home Medications Medication Instructions Recorded Confirmed Type acetaminophen 500 mg tablet 1,000 mg PO HS 02/03/24 03/11/24 History (Tylenol Extra Strength) amlodipine 5 mg tablet 5 mg PO BID 02/03/24 03/11/24 History carvedilol 6.25 mg tablet 6.25 mg PO BID 02/03/24 03/11/24 History cholecalciferol (vitamin D3) 50 50 mcg PO QAM 02/03/24 03/11/24 History mcg (2,000 unit) capsule (Vitamin D3) cyclosporine 0.05 % eye drops in a 1 drp OPB BID 02/03/24 03/11/24 History dropperette duloxetine 20 mg capsule,delayed 20 mg PO QAM 02/03/24 03/11/24 History release famotidine 20 mg tablet 20 mg PO BID 02/03/24 03/11/24 History fluorometholone 0.1 % eye 1 drp OPB QID 02/03/24 03/11/24 History drops,suspension furosemide 20 mg tablet 20 mg PO QAM 02/03/24 03/11/24 History levothyroxine 125 mcg tablet 125 mcg PO QAM 02/03/24 03/11/24 History melatonin 5 mg tablet 5 mg PO HS 02/03/24 03/11/24 History risperidone 0.5 mg tablet 0.5 mg PO HS 02/03/24 03/11/24 History vit C 250 mg-vit E 90 mg-zinc 40 1 tab PO BID 02/03/24 03/11/24 History mg-copper 1 oo-pswodu-fyajuo capsule (PreserVision AREDS-2) clopidogrel 75 mg tablet 75 mg PO QAM 30 days #30 tabs 02/15/24 03/11/24 Rx acetaminophen 325 mg tablet 650 mg PO Q6 PRN Fever Or Pain 02/28/24 03/11/24 History multivitamin 1 tab PO QAM 02/28/24 03/11/24 History omega 7-xij-igv-fish oil 1,200 mg 1 cap PO QAM 02/28/24 03/11/24 History (144 mg-216 mg) capsule (Fish Oil) rosuvastatin 20 mg tablet 20 mg PO HS 02/28/24 03/11/24 History buspirone 10 mg tablet 10 mg PO TID 03/06/24 03/11/24 History sodium chloride 1,000 mg soluble 1,000 mg PO DAILY 03/06/24 03/11/24 History tablet peg 400 0.4 %-propylene glycol 1 drp OPB QID 03/11/24 03/11/24 History (PF) 0.3 % eye drops (Systane Ultra (PF)) Patient History Medical History TIA (transient ischemic attack) unspecifiedUTI (urinary tract infection) site not specifiedLocalized edema Localized enlarged lymph nodes Nonrheumatic aortic (valve) stenosis Colon polyp Acute kidney failure Hypertensive chronic kidney disease with stage 1 through stage 4 chronic kidney disease, or unspecified chronic kidney disease Urinary retention Unspecified dementia, unspecified severity, without behavioral disturbance, psychotic disturbance, mood disturbance, and anxiety Delirium due to known physiological condition Transient ischemic attack (TIA) Anemia Hypertension Hypothyroidism Sjogren's syndrome Sprain of left ankle Sprain of left foot Hypertensive urgency Constipation Fall Hypomagnesemia Right elbow pain Dermatitis Neuropathy Left hand pain Cervical muscle strain Peripheral edema Insomnia Sensorineural hearing loss (SNHL) of both ears Memory changes Increased urinary frequency Aortic valve sclerosis Arteriosclerosis of carotid artery Benign neoplasm of colon Cervical lymphadenopathy Chronic hoarseness Mixed hyperlipidemia Osteoporosis Rotator cuff tear, left Unsteady gait Vocal cord paralysis Trigeminal neuralgia rightSpinal stenosis Osteoarthritis IBS (irritable bowel syndrome) GERD (gastroesophageal reflux disease) Macular degeneration Claustrophobia Cardiac murmur Hyperlipidemia HX OF Surgical History Hx of arthroscopy of shoulder 2019, leftHistory of lumpectomy History of hysterectomy History of bladder surgery BLADDER TACKHistory of total abdominal hysterectomy and bilateral salpingo- oophorectomy History of colonoscopy History of throat surgery THURNWALDT CYST BENIGNHistory of tooth extraction History of tonsillectomy History of adenoidectomy Family History Son Family history of diabetes mellitusFather CancerSister Cancer Breast cancer Heart disease H/O heart artery stentMother Myocardial infarctionGrandmother AAA (abdominal aortic aneurysm) Myocardial infarctionDenies family history of Ovarian cancer Prostate cancer Colorectal cancer Social History Smoking Status: Never smoker Hx Alcohol Use: No Hx Substance Use: No Preferred Language: [place] Konger Communication Ability: Impaired Communication Ability Comment: hard of hearing Visual Impairment: Limited Hearing Ability: Use of Hearing Aid Skinner Pelts Required: No Beliefs That Will Affect Care: Faith marital status: / Current Living Situation: Skilled Nursing Current Living Situation Comment: [facility] current occupational status: retired How many Children do You have: 3 Feels Safe at Home: Yes Childhood Exposure to Second-Hand Smoke: No Diet: Soft caffeine: Yes during the past year weight has: remained stable Dental Care, Regularly: No Physical Activity Frequency: Does not Exercise Seatbelt Use: always Sunscreen Use: Yes Assistive Devices: Walker Review of Systems Review of Systems: Unobtainable due to cognitive status Physical Exam Constitutional: + thin, + frail appearing, cooperative a nd comfortable; not in distress ENMT: Ears: + hearing impairment Neck: trachea midline Respiratory: normal respiratory effort, lungs clear to auscultation Auscultation: + diminished lung sounds Cardiovascular: Rate/Rhythm: regular rate and regular rhythm Vessels: posterior tibial pulses present, dorsalis pedis pulses present and radial pulses present; + abnormal peripheral pulses Extremities: normal capillary refill; no edema Gastrointestinal (Abdomen): Inspection/Auscultation: abdomen normal to inspection Musculoskeletal: Extremities: + abnormal strength (RUE/RLE 5/5, LUE 3/5 LLE 4/5) Skin: no rashes, warm and dry Neurologic: moves all extremities, + focal motor deficit, awake and + confused Psychiatric: Orientation: alert, oriented to person, oriented to place (states "the hospital") and oriented to time (states "2023", unable to differentiate further) Affect: + flat affect Results & Data Vital Signs (Past 12 Hours) Vital Signs Temp Pulse Resp BP Pulse Ox O2 Del Method 03/18/24 07:26 Room Air 03/18/24 07:26 36.7 C 76 20 151/74 H 96 Room Air Signed By: <Electronically signed by Carolyn Riggs PA-C> 03/18/24 1030 <Electronically signed by Mike Quintanilla MD> 03/18/24 1247 Created: 03/18/24 1017 The status of this report is Signed. Draft = Not yet reviewed or approved by Medical Physician. Signed = Reviewed and approved by Medical Physician. Allergies Allergy/AdvReac Type Severity Reaction Status Date / Time Sulfa (Sulfonamide Allergy Intermediate Rash Verified 03/25/24 13:21 Antibiotics) adhesive Allergy Mild rash Verified 03/25/24 13:21 enalaprilat [From Vasotec] Allergy Unknown Unknown Verified 03/25/24 13:21 atorvastatin AdvReac Severe Unconscious Verified 03/25/24 13:21 Home Medications Medication Instructions Recorded Confirmed Type acetaminophen 500 mg tablet 1,000 mg PO HS 02/03/24 03/25/24 History (Tylenol Extra Strength) amlodipine 5 mg tablet 5 mg PO BID 02/03/24 03/25/24 History carvedilol 6.25 mg tablet 6.25 mg PO BID 02/03/24 03/25/24 History cholecalciferol (vitamin D3) 50 50 mcg PO QAM 02/03/24 03/25/24 History mcg (2,000 unit) capsule (Vitamin D3) cyclosporine 0.05 % eye drops in a 1 drp OPB BID 02/03/24 03/25/24 History dropperette duloxetine 20 mg capsule,delayed 20 mg PO QAM 02/03/24 03/25/24 History release famotidine 20 mg tablet 20 mg PO BID 02/03/24 03/25/24 History fluorometholone 0.1 % eye 1 drp OPB QID 02/03/24 03/25/24 History drops,suspension furosemide 20 mg tablet 20 mg PO QAM 02/03/24 03/25/24 History levothyroxine 125 mcg tablet 125 mcg PO QAM 02/03/24 03/25/24 History melatonin 5 mg tablet 5 mg PO HS 02/03/24 03/25/24 History risperidone 0.5 mg tablet 0.5 mg PO HS 02/03/24 03/25/24 History vit C 250 mg-vit E 90 mg-zinc 40 1 tab PO BID 02/03/24 03/25/24 History mg-copper 1 ei-evykyy-ffxlyy capsule (PreserVision AREDS-2) acetaminophen 325 mg tablet 650 mg PO Q6 PRN Fever Or Pain 02/28/24 03/25/24 History multivitamin 1 tab PO QAM 02/28/24 03/25/24 History omega 7-bvy-rqt-fish oil 1,200 mg 1 cap PO QAM 02/28/24 03/25/24 History (144 mg-216 mg) capsule (Fish Oil) rosuvastatin 20 mg tablet 20 mg PO HS 02/28/24 03/25/24 History buspirone 10 mg tablet 10 mg PO TID 03/06/24 03/25/24 History sodium chloride 1,000 mg soluble 1,000 mg PO DAILY 03/06/24 03/25/24 History tablet peg 400 0.4 %-propylene glycol 1 drp OPB QID 03/11/24 03/25/24 History (PF) 0.3 % eye drops (Systane Ultra (PF)) aspirin 81 mg tablet,delayed 81 mg PO QAM 60 days #60 tabs 03/21/24 03/25/24 Rx release ticagrelor 90 mg tablet 90 mg PO BID on DAPT - Aspirin 03/21/24 03/25/24 Rx 81mg + Ticagrelor 90mg BID #60 tabs bisacodyl 10 mg rectal suppository 10 mg NC DAILY PRN Constipation 03/25/24 03/25/24 History (Dulcolax (bisacodyl)) docusate sodium 100 mg capsule 100 mg PO DAILY PRN Constipation 03/25/24 03/25/24 History (Colace) Past Med/Surg History Problem List (Updated 03/25/24 @ 14:08 by Luz Maria Gamboa PA-C) 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 History of TIA (transient ischemic attack) Acute hypokalemia 03/12/24 Chronic hyponatremia Delirium Acute hyponatremia (Acute) 03/11/24 Elevated lactic acid level (Acute) 03/11/24 Closed fracture of right pelvis (Acute 03/11/24) Small nondisplaced right sacral ala fracture Closed fracture of neck of left femur (Acute 03/11/24) Displaced subcapital left femoral neck fracture from a fall Acute UTI (urinary tract infection) (Acute) 03/11/24 Fall from standing (Acute) Combative behavior (Acute) Headache (Acute) Sundowning Dementia Acute respiratory failure with hypoxia 01/20/24 Aspiration into airway Acute UTI (Acute) 01/18/24 PATRICIA (acute kidney injury) (Acute) 01/18/24 Sepsis 01/18/24 UTI (urinary tract infection), uncomplicated 01/16/24 Anxiety Forgetfulness Orthostatic hypotension dysautonomic syndrome Diarrhea Hyponatremia (Acute) Anemia Urinary incontinence Ambulatory dysfunction Hearing loss (Acute) General weakness Weight loss Poor balance Poor eyesight Right shoulder pain Tinea corporis 02/23/21 GERD (gastroesophageal reflux disease) Pessary maintenance Dysphagia Peripheral edema Rectocele Insomnia Cystocele Recurrent falls Situational anxiety Pulmonary nodule (Chronic) Monoclonal gammopathy of undetermined significance (Chronic) Medical History (Updated 03/25/24 @ 14:08 by Luz Maria Gamboa PA-C) MGUS (monoclonal gammopathy of unknown significance) Hx: UTI (urinary tract infection) Gutierrez catheter in place Right carotid artery occlusion Recurrent falls Anxiety Hx of colonic polyps Ischemic stroke (02/2024) Closed pelvic fracture (~03/11/24) small nondisplaced right sacral ala fracture- due to fall Closed fracture of neck of left femur (~03/11/24) displaced subcapital left femoral neck fracture -due to fall - surgery 03/12/24 Localized edema Localized enlarged lymph nodes Nonrheumatic aortic (valve) stenosis Hypertensive chronic kidney disease with stage 1 through stage 4 chronic kidney disease, or unspecified chronic kidney disease Urinary retention Delirium due to known physiological condition Transient ischemic attack (TIA) Anemia Hypertension Hypothyroidism Sjogren's syndrome Hypertensive urgency Constipation Dermatitis Neuropathy Cervical muscle strain Peripheral edema Insomnia Sensorineural hearing loss (SNHL) of both ears Memory changes Aortic valve sclerosis Cervical lymphadenopathy Chronic hoarseness Mixed hyperlipidemia Osteoporosis Unsteady gait Vocal cord paralysis Trigeminal neuralgia right Spinal stenosis Osteoarthritis IBS (irritable bowel syndrome) GERD (gastroesophageal reflux disease) Macular degeneration Claustrophobia Cardiac murmur Hyperlipidemia Surgical History (Updated 03/25/24 @ 13:41 by Apoorva Lira) History of transurethral resection of bladder tumor (TURBT) (03/06/24) History of hemiarthroplasty of left hip (03/12/24) due to fall Hx of colonoscopy with polypectomy Hx of arthroscopy of shoulder 2019, left History of lumpectomy History of hysterectomy History of bladder surgery BLADDER TACK History of total abdominal hysterectomy and bilateral salpingo-oophorectomy History of throat surgery THURNWALDT CYST BENIGN History of tooth extraction History of tonsillectomy History of adenoidectomy Family History Son Family history of diabetes mellitus Father Cancer Sister Cancer Breast cancer Heart disease H/O heart artery stent Mother Myocardial infarction Grandmother AAA (abdominal aortic aneurysm) Myocardial infarction Denies family history of Ovarian cancer Prostate cancer Colorectal cancer Social History Smoking Status: Unknown if ever smoked Preferred Language: [place]er Communication Ability: Impaired Communication Ability Comment: unk Visual Impairment: Limited Hearing Ability: Use of Hearing Aid Skinner Pelts Required: No Beliefs That Will Affect Care: Faith marital status: / Current Living Situation: Personal Care Facility Current Living Situation Comment: [facility] current occupational status: retired How many Children do You have: 3 Feels Safe at Home: Yes Childhood Exposure to Second-Hand Smoke: No Diet: Soft caffeine: Yes during the past year weight has: remained stable Dental Care, Regularly: No Physical Activity Frequency: Does not Exercise Seatbelt Use: always Sunscreen Use: Yes Assistive Devices: Walker Assistive Devices Comment: unk
[2024-03-26] MEDS: SODIUM CHLORIDE 0.9% 1,000 ML IV SCH (10:40)
--- NOTE | 2024-03-26 10:43 | History & Physical Bridge Note ---
Date of Service March 26, 2024 History & Physical Bridge Note I have examined the patient, reviewed the History & Physical and in the interval since the performance of the History & Physical I have noted the following changes of clinical significance: no changes noted
[2024-03-26 10:52] LABS: Calcium 9.1 mg/dl (8.6-10.3); Potassium 4.2 mmol/L (3.5-5.1)
[2024-03-26 10:58] LABS: BUN Creatinine Ratio 23.3 (10-20); Creatinine Clr Calc Pharmacy 11.4 ml/min; Est GFR (African American) 20.1 ml/min; Est GFR (Non-African American) 17.3 ml/min
--- NOTE | 2024-03-26 12:20 | Operative Report ---
Post Operative Report Pre & Post Diagnosis Operation Date: 03/26/24 12:00 Symptomatic, severe right carotid artery stenosis I identified the patient and participated in the time-out.: Yes Surgeon Mike Quintanilla MD Law Librarian Kelsey Davenport MD; Carolyn Riggs PA-C Estimated Blood Loss 10 Specimens None Drains None Complications None I attest to the content of the Intraoperative Record and any orders documented therein. Any exceptions are noted below.
[2024-03-26] MEDS ORDERED: ATROPINE SULFATE 0.1 MG/ML 10ML SYR IV PRN (12:32)
[2024-03-26] MEDS ORDERED: ePHEDrine sulfate 50 MG/ML AMP IV PRN (12:32)
[2024-03-26] MEDS ORDERED: HYDROmorphone INJ 1 MG/ML SYRINGE IV PRN (12:32)
[2024-03-26] MEDS ORDERED: ONDANSETRON INJ 2 MG/ML 2 ML VIAL IV PRN (12:32)
[2024-03-26] MEDS ORDERED: fentaNYL citrate PF 100 MCG/2 ML VIAL IV PRN (12:32)
[2024-03-26] MEDS ORDERED: PROPOFOL IV EMULSION 10 MG/ML 20 ML VIAL IV ONE (12:35)
[2024-03-26] MEDS ORDERED: DEXAMETHASONE SOD INJ 4 MG/ML VIAL ONE (12:35)
[2024-03-26] MEDS ORDERED: ONDANSETRON INJ 2 MG/ML 2 ML VIAL ONE (12:35)
[2024-03-26] MEDS ORDERED: LIDOCAINE 2% 2 ML VIAL/AMP(20MG/ML) INFIL ONE (12:35)
[2024-03-26] MEDS ORDERED: fentaNYL citrate PF 100 MCG/2 ML VIAL ONE (12:35)
[2024-03-26] MEDS ORDERED: ROCURONIUM BROMIDE 10 MG/ML 5 ML VIAL IV ONE (12:40)
[2024-03-26] MEDS ORDERED: GLYCOPYRROLATE 0.2 MG/ML VIAL ONE ×3 (12:40→14:39)
[2024-03-26] MEDS ORDERED: HEPARIN SOD (PORCINE) 1000 UNIT/ML ONE ×2 (12:40→13:40)
[2024-03-26] MEDS: ceFAZolin 2000MG 2,000 MG/15 ML SYR IV SCH ×2 (12:58→21:02)
[2024-03-26] MEDS: THROMBIN FOR SOLN 20000 UNIT KIT ONE (13:43)
[2024-03-26] MEDS ORDERED: ePHEDrine sulfate 50 MG/5 ML SYR ONE (14:15)
[2024-03-26] MEDS ORDERED: ATROPINE SULFATE 0.4 MG/ML 1 ML VIAL ONE (14:15)
[2024-03-26] MEDS ORDERED: PROTAMINE SULFATE 10 MG/ML 5 ML VIAL IV ONE (14:25)
--- OUTSIDE RECORDS SUMMARY | 2024-03-26 14:36 | External Medical Summary | Summary of Care ---
Author Name Unknown Organization [facility] Address [address] [place] [address] Phone [phone] Care Team Providers Care Retirement Manager Name Role Phone Deepti Francois Primary Care Provide r Reason for Visit * Reason Onset Date Comments Skilled Visit 03/25/2024 Encounter Details Date Type Department Care Team (Late st Contact Info) Description 03/25/2024 11:00 AM EDT [facility] Visit [facility] [place] [address] [place] [address] Suki Rodriguez PA-C [address] [place] [address] S/p left hip fracture*; History of CVA (cerebrovascular accident); Left hemiparesis (HCC); Dementia with psychosis (HCC); Depression with anxiety; Acute posthemorrhagic anemia Allergies Active Allergy Reactions Criticality Noted Date Comments Atorvastatin Itching 11/19/2020 Enalapril 04/19/2023 Sulfa Antibiotics 03/15/2007 documented as of this encounter (statuses as of 03/25/2024) Medications Medication Sig Dispensed Refills Start Date End Date Status CENTRUM SILVER PO TABS One every other day Active OCUVITE-LUTEIN PO CAPS One every other day Active Cholecalciferol (VITAMIN D) 25 MCG (1000 UT) TABS Take by mouth. Active Levothyroxine Sodium 125 MCG Oral Tablet (Levoxyl) take one tablet (125 mcg) by mouth daily 90 Tablet 3 05/11/2023 Active cycloSPORINE 0.05 % Ophthalmic Emulsion (Restasis) Instill 1 Drop into both eyes in the morning and 1 Drop before bedtime. 720 Each 08/18/2023 Active DULoxetine HCl 20 MG Oral Capsule Delayed Release Particles (Cymbalta) Take one capsule by mouth daily 90 Capsule 3 09/15/2023 Active Sodium Chloride 1 GM Oral Tablet Take one tablet by mouth daily 90 Tablet 3 09/15/2023 Active Famotidine 20 MG Oral Tablet (Pepcid) TAKE ONE TABLET BY MOUTH TWICE A DAY 180 Tablet 3 10/13/2023 Active Carvedilol 6.25 MG Oral Tablet (Coreg) take one tablet by mouth twice a day; must administer with a meal/food 180 Tablet 3 11/24/2023 Active Systane Complete 0.6 % Ophthalmic Solution (Propylene Glycol) Instill 1 Drop into both eyes 4 times a day as needed (dry eye). 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 10 mL 3 02/09/2024 Active busPIRone HCl 10 MG Oral Tablet (Buspar) Take 1 Tablet by mouth in the morning and 1 Tablet at noon and 1 Tablet before bedtime. 03/21/2024 Active Aspirin 81 MG Oral Tablet Chewable Take 1 Tablet by mouth in the morning. with food.. 03/21/2024 Active Furosemide 20 MG Oral Tablet (Lasix) Take 1 Tablet by mouth in the morning. 03/21/2024 Active Melatonin 5 MG Oral Tablet Disintegrating Take 5 mg by mouth every night at bedtime. 03/21/2024 Active Menominee-3 Fish Oil 1200 MG Oral Capsule Take 1 Capsule by mouth in the morning. 03/21/2024 Active risperiDONE 0.5 MG Oral Tablet (RisperDAL) Take 1 Tablet by mouth at bedtime. 03/21/2024 Active Rosuvastatin Calcium 20 MG Oral Tablet (Crestor) Take 1 Tablet by mouth every night at bedtime. 03/21/2024 Active Systane 0.4-0.3 % Ophthalmic Solution (Artificial Tears) Instill 1 Drop into both eyes in the morning and 1 Drop at noon and 1 Drop in the evening and 1 Drop before bedtime. 03/21/2024 Active Ticagrelor 90 MG Oral Tablet (Brilinta) Take 1 Tablet by mouth in the morning and 1 Tablet before bedtime. 03/21/2024 Active documented as of this encounter (statuses as of 03/25/2024) Active Problems Problem Noted Date Diagnosed Date Sjogren syndrome with keratoconjunctivitis 03/21 S/p left hip fracture 03/21/2024 History of TIA (transient ischemic attack) 03/21 Right carotid artery occlusion 03/21/2024 Acquired hypothyroidism 03/21/2024 Dyslipidemia, goal LDL below 70 03/21/2024 SIADH (syndrome of inappropriate ADH production) 03/21/2024 Dementia with psychosis 03/21/[address] 03/21/2024 Left hemiparesis 03/21/2024 History of CVA (cerebrovascular accident) 2023 Overview: Acute right parietal infarct on head CT 03/16/24 S/P urethral surgery 03/21/2024 Depression with anxiety 03/21/2024 Sensorineural hearing loss (SNHL) of both ears 0 03/21/2024 ADVANCE DIRECTIVE INFORMATION 03/15/2007 Overview: No, Advance Directive brochure given to patient 03/15/07. HTN, goal below 140/90 Reflux esophagitis documented as of this encounter (statuses as of 03/25/2024) Resolved Problems Problem Noted Date Diagnosed Date Resolved Date Unspecified dementia, mild, with anxiety 03/21/2024 03/21/2024 Chronic pharyngitis 03/21/20 Dyspnea and respiratory abnormality 03/21/2024 Overview: ICD-10 update of inactive term documented as of this encounter (statuses as of 03/25/2024) Immunizations Name Administration Dates Next Due COVID-19 mRNA, LNP-s, No Pre serve, 2-Dose Series (Pfizer) 09/15/2020,08/18/2020 documented as of this encounter Social History Tobacco Use Types Packs/Day Years Used Date Smoking Tobacco: Never Smokeless Tobacco: Never Alcohol Use Standard Drinks/Week Comments No 0 (1 standard drink = 0.6 oz pur e alcohol) Hunger Vital Sign Answer Date Recorded Within the past 12 months, y ou worried that your food would run out before you got the money to buy more. Never true 09/01/19 23 Within the past 12 months, t he food you bought just didn't last and you didn't have money to get more. Never true 09/01/2022 Utilities Answer Date Recorded Do you have trouble paying y our heating, water, or electric bill? (Adult - for ages 18 years and over) Not on file 12/26/2023 Is your family able to pay t he heat, water, or electric bill? (Household - for ages 0-17 years) Not on file 12/26/2023 Does your family have access to good internet? (Household - for ages 0-17 years) Not on file 12/26/2023 Social Connections Answer Date Recorded How often do you feel lonely or isolated from those around you? (Adult - for ages 18 years and over) Not on file 12/26/2023 Sex and Gender Information Value Date Recorded Sex Assigned at Female 10/02/2023 2:23 PM EDT Gender Identity Female 10/02/2023 2:23 PM EDT Sexual Orientation Straight 10/02/2023 2: 23 PM EDT Job Start Date Occupation Industry Not on file Not on file Not on file documented as of this encounter Last Filed Vital Signs Vital Sign Reading Time Taken Comments Blood Pressure 123/47 03/25/2024 3:41 PM EDT Pulse 77 03/25/2024 3:41 PM EDT Temperature 36.4 C (97.5 F) 03/25/2024 3:41 PM ED T Respiratory Rate 18 03/25/2024 3:41 PM EDT Oxygen Saturation 97% 03/25/2024 3:41 PM EDT room air Inhaled Oxygen Concentration - - Weight - - Height - - Body Mass Index - - documented in this encounter Plan of Treatment Upcoming Encounters Date Type Department Care Team (Late st Contact Info) Description 04/19/2024 10:00 AM EDT Office Visit Rheumatology [place] [id number] [employer] [place] [address] [address] [place] CRNP [facility] [address] [place] [address] Health Maintenance Due Date Last Done Comments Depression Monitoring 1947 Albumin/Creatinine Ratio 1953 DXA Scan 08/08/2013 08/08/2006, 07/12, 08/05/2004 COVID-19 Vaccine ( season) 2024 04/25/2023, 04/20/2022, 04/21/2021, Additional history exists Influenza Vaccine (FLU shot) (#1) 2024 03/27/2020, 05/09/2019, 05/09/2019, Additional history exists TSH 01/24/2025 01/25/2024, 06/12/2023, 09/07/2023, Additional history exists DTap/Tdap Vaccines (3 - Td or Tdap) 06/19/2027 06/19/2017, 06/19/2017 Pneumococcal Vaccine: 65+ Years Completed 08/24/2015, 08/25/2014, 05/27/2003 Zoster Vaccines Completed 07/28/2020, 04/09, 06/10/2009 HPV (Gardasil) Vaccine Aged Out No lo nger eligible based on patient's age to complete this topic Hepatitis B Vaccine Aged Out No longe r eligible based on patient's age to complete this topic MENINGOCOCCAL (MENACTRA/MENVEO) Aged Out No longer eligible based on patient's age to complete this topic documented as of this encounter Medical Devices Not on filedocumented as of this encounter Visit Diagnoses Diagnosis S/p left hip fracture- Primary History of CVA (cerebrovascular accident) Transient ischemic attack (TIA), and cerebral infarction without residual deficits Left hemiparesis (HCC) Hemiplegia, unspecified, affecting unspecified side Dementia with psychosis (HCC) Other persistent mental disorders due to conditions classified elsewhere Depression with anxiety Dysthymic disorder Acute posthemorrhagic anemia documented in this encounter Advance Directives Documents on File Type Date Recorded Patient Drier Helper Expl anation Power of Butcher Meat 03/11/2022 POWER OF A TTORNEY Care Teams Retirement Manager Relationship Specialty Start Date End Date Deepti Francois CRNP [address] [place] [id number] PCP - General Nurse Practitioner 07/31/20 documented as of this encounter
[2024-03-26] MEDS ORDERED: NEOSTIGMINE METHYLSULFATE 1 MG/ML 10ML VIAL ONE (14:39)
--- NOTE | 2024-03-26 14:46 | Operative Report ---
Post Operative Report Pre & Post Diagnosis Operation Date: 03/26/24 12:00 Pre-Op Diagnosis: Right Carotid Artery Stenosis Post-Op Diagnosis: Right Carotid Artery Stenosis I identified the patient and participated in the time-out.: Yes Procedure Operation Date: 03/26/24 12:00 Right transcarotid artery revascularization (TCAR) with flow reversal through left common femoral vein Percutaneous ultrasound guided access of left common femoral vein Surgeon Mkie Quintanilla MD Supervisor Refining Kesley Davenport MD; Carolyn Riggs PA-C Estimated Blood Loss 10 Findings See Below Right carotid artery had high grade stenosis, improved after balloon angioplasty and stenting. The stent was patent with good wall apposition and no areas of significant narrowing on completion angiogram. Specimens None Drains None Anesthesia Type General Complications None Disposition Accompanied Patient To Recovery: Yes Indications 89 year old female with history of symptomatic, high grade right carotid artery stenosis found to be a candidate for right transcarotid artery revascularization (TCAR). After risks and benefits were discussed, patient consented to the procedure. Description of Procedure The patient was brought to the operating room, where lines were placed and general anesthesia was accomplished by anesthesia team. A shoulder roll was placed and the neck was rotated towards the left side of the patient. The right neck and bilateral groins were prepped and patient was draped in the usual sterile fashion. A timeout was performed identifying the correct patient by name, procedure, and location of procedure and all were in agreement. A 3cm transverse incision was made between the sternal and clavicular heads of the sternocleidomastoid muscle. The muscle heads were retracted to each side and the carotid sheath was identified. Using blunt dissection, the carotid sheath was opened and 3cm of common carotid artery (CCA) were isolated. Umbilical tape was placed around the proximal CCA under direct visualization. A 5-0 Prolene U- stitch was pre-placed in the anterior wall of the CCA to facilitate hemostasis after removal of the arterial sheath at completion of the procedure. The patient was given 5,000 units of IV heparin. The contralateral (left) common femoral vein was accessed under ultrasound guidance, using an access needle, and a wire and sheath were placed using modified Seldinger technique. The venous return sheath was advanced into the common femoral vein over the 0.035" wire. Blood was aspirated from the flow line and the sheath was flushed with heparinized saline.The sheath was secured to the patient's skin with a 2-0 silk stitch to maintain position in the vessel. ACT was confirmed to be at goal. We then turned our attention back to the neck. A 4- Croatian non-stiffened micropuncture set was used, puncturing the common carotid artery with a 21G needle through the pre-placed U-stitch while holding gentle traction on the umbilical tape to stabilize the CCA within the incision. The micropuncture wire was advanced 3-4cm into the CCA and the 21G needle removed. The micropuncture sheath was advanced 3cm into the CCA and the wire and dilator were removed. A cerebral angiogram was obtained after ensuring there were no air bubbles in the system. The J-tipped guidewire was inserted and we stopped short of the lesion at the level of the common carotid artery. After micropuncture sheath removal, the transcarotid arterial sheath was advanced to the 3cm marker and the 0.035" wire and dilator were removed. Arterial sheath position was assessed under fluoroscopy. The arterial sheath was sutured to the patient at two sites. The Flow Controller was connected to the transcarotid arterial sheath, prepared by passively allowing arterial blood to backfill the line and then it was connected to the venous return sheath. We obtained a repeat cerebral angiogram to visualize the area we intended to treat. The CCA was clamped proximally with a Evelyn tourniquet to ensure active flow reversal. Heparinized saline was delivered into the venous flow line to confirm adequate flow reversal. A TCAR timeout was performed, heart rate was >70bpm and systolic BP was >140mmHg. Patient had been pretreated with glycopyrrolate and atropine was available. The lesion was crossed with an 0.014" guidewire and pre-dilation balloon angioplasty was performed with a 5x35mm [employer] rapid exchange balloon. A 9-7x40mm ENROUTE transcarotid stent was placed. We obtained a repeat cerebral angiogram and there was some residual narrowing at the distal portion of the stent and the [place] internal carotid artery right past the stent. We then placed an 8-6x30mm ENROUTE transcarotid stent distally in the internal carotid artery with adequate overlap of the prior stent. Post-dilation balloon angioplasty was performed with a 5x35mm [employer] rapid exchange balloon to 10 atmospheres for about 3 seconds. A completion angiogram was performed showing the stent was patent with appropriate position and good wall apposition. At TCAR case completion, antegrade flow was restored by releasing the tourniquet on the CCA and closing the stopcocks to the flow lines. The total clamp time was 16 minutes. The transcarotid arterial sheath was removed and the pre-placed suture was tied. We had to place an additional interrupted 5-0 Prolene stitch at the site to obtain hemostasis of the carotid artery. 25mg of protamine were given. A repeat ACT was obtained and was <160. The venous return sheath was removed and hemostasis achieved with manual compression. The neck incision was irrigated with normal saline solution and was hemostatic before closure. 20cc of 0.5% marcaine with epinephrine were used for local anesthesia around skin edges. The platysma was approximated with 3-0 Vicryl running suture and the skin was closed with 4-0 running Vicryl suture and covered with Dermabond. The patient tolerated the procedure well and was extubated in the operating room. She was moving all four extremities to command prior to transfer to the recovery room. All counts were correct at the end of the procedure. Fluoroscopy time was 3.9 minutes, radiation dose was 32mGy and 15cc of contrast were used. Dr. Quintanilla was present and scrubbed for all critical parts of the procedure. I attest to the content of the Intraoperative Record and any orders documented therein. Any exceptions are noted below.
--- NOTE | 2024-03-26 14:47 | Post Operative Brief Note ---
Immediate Post Op Note Date of Surgery March 26, 2024 Pre & Post Diagnosis Operation Date: 03/26/24 12:00 Pre-Op Diagnosis: Right Carotid Artery Stenosis Post-Op Diagnosis: Right Carotid Artery Stenosis I identified the patient and participated in the time-out.: Yes Procedure Operation Date: 03/26/24 12:00 Actual Procedures p Right Transcarotid Artery Revascularization(Right), Ultrasound left femoral vein - Mike Quintanilla MD Surgeon Mike Quintanilla MD Group Home Manager MD Elias WhelanMinarchjaylin,PAC Estimated Blood Loss 10 Findings Consistent with Post-Op Diagnosis Drains Gutierrez Catheter Anesthesia Type General Complications none Disposition Accompanied Patient To Recovery: No Disposition: Recovery Room
[2024-03-26] MEDS: BUPIVACAINE/EPINEPHRINE 0.5% MPF 1:200,000 30 ML VIAL ONE (15:21)
--- NOTE | 2024-03-26 16:37 | Anesthesiology Progress Note ---
Date of Service March 26, 2024 Anesthesia Post Procedure Vital Signs Vital Signs: Temp Pulse Resp BP BP BP Pulse Ox 03/26/24 16:25 76 16 116/56 L 110/46 L 96 03/26/24 16:15 78 14 117/58 L 120/50 L 94 03/26/24 16:05 79 17 108/72 108/47 L 98 03/26/24 15:55 73 16 122/53 L 113/48 L 98 03/26/24 15:45 76 15 105/69 115/47 L 100 03/26/24 15:35 77 22 120/61 121/49 L 100 03/26/24 15:26 36.1 C L 78 19 129/59 L 111/44 L 98 03/26/24 11:24 117/46 L 03/26/24 10:34 36.5 C 69 20 124/52 L 94 O2 Del Method O2 Flow Rate 03/26/24 16:25 Room Air 03/26/24 16:15 Room Air 03/26/24 16:05 Room Air 03/26/24 15:55 Room Air 03/26/24 15:45 Oxymask 2 03/26/24 15:35 Oxymask 2 03/26/24 15:26 Oxymask 2 03/26/24 11:24 03/26/24 10:34 Room Air Transfer of Care Handoff Completed per policy Notes Mental Status: alert / awake / arousable Patient Amnestic to Procedure: Yes Nausea / Vomiting: adequately controlled Pain: adequately controlled Airway Patency, RR, SpO2: stable & adequate BP & HR: stable & adequate Hydration State: stable & adequate Anesthetic Complications: no major complications apparent and Pt Satisfied with anesthetic care
[2024-03-26] MEDS ORDERED: PEG PROPYLENE GLYCOL OPB SCH (17:39)
[2024-03-26] MEDS ORDERED: PHENYLEPHRINE/NSS 25 MG/250 ML BAG IV PRN (17:39)
[2024-03-26] MEDS ORDERED: DOCUSATE SODIUM 100 MG CAP PO PRN (17:39)
[2024-03-26] MEDS ORDERED: ACETAMINOPHEN 325 MG TAB PO PRN (17:39)
[2024-03-26] MEDS ORDERED: bisacodyL 10 MG SUPP PR PRN (17:39)
[2024-03-26] MEDS ORDERED: oxyCODONE HCL IR 5 MG TAB (IMMEDIATE RELEASE) PO PRN (17:39)
[2024-03-26] MEDS ORDERED: STAT IV Infusion **Titration per Protocol STA (17:39)
--- NOTE | 2024-03-26 18:05 | Critical Care Consultation ---
Date of Consultation March 26, 2024 Assessment & Plan (1) Stenosis of right internal carotid artery with cerebral infarction: (2) Chronic hyponatremia: (3) Dementia: (4) GERD (gastroesophageal reflux disease): (5) CVA (cerebral vascular accident): Plan Reason Critically Ill: 89 YOF admitted to ICU following RIGHT TCAR on 03/26/24 for symptomatic 99% stenosis of GREGORIO. She is noted for recent admissions for TIA, Left hip fracture s/p arthroplasty and CVA during hospital recovery from her surgery. Neuro - Hx CVA with residual left side symptoms, Dementia CAM ICU: CLARA - Currently without any notable weakness or facial droop on exam, difficult exam related to visual prompts secondary to her dementia and poor eyesight. - Continue her DAPT with ASA and Brilinta when vascular surgery feels safe to do so from hemostatic perspective - avoid hypotension in regards to her CVAs - With her dementia- continue with frequent re-orientation, avoid benzodiazepines, judicious narcotic use - COntinue home risperidone - if behavior becomes problematic in regards to her surgical sites, ed, other tubes/lines- consider Haldol or olanzapine Cardiac - s/p RIGHT TCAR for symptomatic RIGHT ICA stenosis, HTN, - antiplatelet medications per vascular surgery - inotropics/vasopressors per vascular surgery if needed - attempt to maintain euvolemia and as above normotensive- NEOsynepherine available if needed - Continue Carvedilol as hemodynamics allow - amlodipine as hemodynamics allow Respiratory - No acute needs - Continue with ICS post operative GI - Hx GERD, no acute needs - Diet advance as tolerated - PPI/H2 while on DAPT RENAL/LYTES - NO acute needs, hx of chronic hyponatremia - follow BMP and renal function - labs per primary surgery service - Antonella cute needs - remove lees when appropriate ENDO - Hx hypothyroidism - Continue synhtroid - ICU hyper/hypoglycemic protocol HEME - No acute needs - Follow HGB levels - transfuse for acute bleeding or symptomatic anemia ID - NO concern at this time for acute infectious process LINES/IV ACCESS - Brenda ALEXANDRE Aline Continue use of these lines DVT PROPHYLAXIS - SCDS, ASA, Ticagrelor DISPO: ICU until hemodynamics proven stable without vasoactive medications I have personally spent 45 minutes of time in the direct management of this patient. This is a life/limb threatening event. This includes time spent evaluating patient, direct bedside care, chart review, placing orders, int erpretation of diagnostic studies, discussion with consultants, patient, and family members, as well as other required patient management activities. This time is exclusive of all separately billable procedures, separate from and in addition to any other critical care service time. Thank you for allowing us to participate in the care of this patient. Please refer to my attending physician's documentation for any further recommendations. History of Present Illness Reason for Consultation: S/p Right TCAR for symptomatic GREGORIO stenosis Requesting Physician: Mike Quintanilla MD Attending Physician: Mike Quintanilla MD History of Present Illness 89 YOF resident of local [facility] with medical history of: Dementia, TIA, CVA with left neglect, fracture of left hip s/p arthroplasty, chronic hyponatremia, anxiety. Patient is admitted to the ICU following right TCAR for symptomatic GREGORIO stenosis of 99% that was noted following CVA ~03/16/24. Patient has history of TIAs for which she was on ASA and Plavix for 3 months, this was complicated by a fall which resulted a fracture to her left hip on 03/11/24 and she underwent a left hip arthroplasty, which timmy are still in place, while recovering from her hip surgery, she was noted on the 16 of March to have left sided weakness CT and MRI were completed. CT noting 99% GREGORIO stenosis and MRI noting multiple acute ischemic changes within right temporal, occipital, parietal, and frontal lobes. She was treated with ASA and Brilinta, discharged to her care facility with plans to do the RIGHT TCAR above. Nursing spoke with daughter at bedside and baseline function for her is with usually oriented to person and place. and does have periods of delirium/combativeness. Reports that she has just started to get up and work on ambulating post hip. Patient is to the ICU awake, alert, pleasantly oriented to person and place. She is on room air, states her pain is controlled, and is currently without any vasoactive medication needs. She is with radial arterial line, RIght TCAR site as well as Left groin access site. ICU to monitor hemodynamic status and for any hemorrhage following RIGHT TCAR. CODE: FULL Allergies Allergy/AdvReac Type Severity Reaction Status Date / Time Sulfa (Sulfonamide Allergy Intermediate Rash Verified 03/26/24 10:33 Antibiotics) adhesive Allergy Mild rash Verified 03/26/24 10:33 enalaprilat [From Vasotec] Allergy Unknown Unknown Verified 03/26/24 10:33 atorvastatin AdvReac Severe Unconscious Verified 03/26/24 10:33 Home Medications Medication Instructions Recorded Confirmed Type acetaminophen 500 mg tablet 1,000 mg PO HS 02/03/24 03/26/24 History (Tylenol Extra Strength) amlodipine 5 mg tablet 5 mg PO BID 02/03/24 03/26/24 History carvedilol 6.25 mg tablet 6.25 mg PO BID 02/03/24 03/26/24 History cholecalciferol (vitamin D3) 50 50 mcg PO QAM 02/03/24 03/26/24 History mcg (2,000 unit) capsule (Vitamin D3) cyclosporine 0.05 % eye drops in a 1 drp OPB BID 02/03/24 03/26/24 History dropperette duloxetine 20 mg capsule,delayed 20 mg PO QAM 02/03/24 03/26/24 History release famotidine 20 mg tablet 20 mg PO BID 02/03/24 03/26/24 History fluorometholone 0.1 % eye 1 drp OPB QID 02/03/24 03/26/24 History drops,suspension furosemide 20 mg tablet 20 mg PO QAM 02/03/24 03/26/24 History levothyroxine 125 mcg tablet 125 mcg PO QAM 02/03/24 03/26/24 History melatonin 5 mg tablet 5 mg PO HS 02/03/24 03/26/24 History risperidone 0.5 mg tablet 0.5 mg PO HS 02/03/24 03/26/24 History vit C 250 mg-vit E 90 mg-zinc 40 1 tab PO BID 02/03/24 03/26/24 History mg-copper 1 [id number] capsule (PreserVision AREDS-2) acetaminophen 325 mg tablet 650 mg PO Q6 PRN Fever Or Pain 02/28/24 03/26/24 History multivitamin 1 tab PO QAM 02/28/24 03/26/24 History omega [id number]-[id number]-fish oil 1,200 mg 1 cap PO QAM 02/28/24 03/26/24 History (144 mg-216 mg) capsule (Fish Oil) rosuvastatin 20 mg tablet 20 mg PO HS 02/28/24 03/26/24 History buspirone 10 mg tablet 10 mg PO TID 03/06/24 03/26/24 History sodium chloride 1,000 mg soluble 1,000 mg PO DAILY 03/06/24 03/26/24 History tablet peg 400 0.4 %-propylene glycol 1 drp OPB QID 03/11/24 03/26/24 History (PF) 0.3 % eye drops (Systane Ultra (PF)) aspirin 81 mg tablet,delayed 81 mg PO QAM 60 days #60 tabs 03/21/24 03/26/24 Rx release bisacodyl 10 mg rectal suppository 10 mg MT DAILY PRN Constipation 03/25/24 03/26/24 History (Dulcolax (bisacodyl)) docusate sodium 100 mg capsule 100 mg PO DAILY PRN Constipation 03/25/24 03/26/24 History (Colace) ticagrelor 90 mg tablet (Brilinta) 90 mg PO BID on DAPT - Aspirin 03/26/24 03/26/24 History 81mg + Ticagrelor 90mg BID Patient History Medical History MGUS (monoclonal gammopathy of unknown significance) Hx: UTI (urinary tract infection) Lees catheter in place Right carotid artery occlusion Recurrent falls Anxiety Hx of colonic polyps Ischemic stroke (02/2024) Closed pelvic fracture (~03/11/24) small nondisplaced right sacral ala fracture- due to fall Closed fracture of neck of left femur (~03/11/24) displaced subcapital left femoral neck fracture -due to fall - surgery 03/12/24 Localized edema Localized enlarged lymph nodes Nonrheumatic aortic (valve) stenosis Hypertensive chronic kidney disease with stage 1 through stage 4 chronic kidney disease, or unspecified chronic kidney disease Urinary retention Delirium due to known physiological condition Transient ischemic attack (TIA) Anemia Hypertension Hypothyroidism Sjogren's syndrome Hypertensive urgency Constipation Dermatitis Neuropathy Cervical muscle strain Peripheral edema Insomnia Sensorineural hearing loss (SNHL) of both ears Memory changes Aortic valve sclerosis Cervical lymphadenopathy Chronic hoarseness Mixed hyperlipidemia Osteoporosis Unsteady gait Vocal cord paralysis Trigeminal neuralgia right Spinal stenosis Osteoarthritis IBS (irritable bowel syndrome) GERD (gastroesophageal reflux disease) Macular degeneration Claustrophobia Cardiac murmur Hyperlipidemia Surgical History History of transurethral resection of bladder tumor (TURBT) (03/06/24) History of hemiarthroplasty of left hip (03/12/24) due to fall Hx of colonoscopy with polypectomy Hx of arthroscopy of shoulder 2019, left History of lumpectomy History of hysterectomy History of bladder surgery BLADDER TACK History of total abdominal hysterectomy and bilateral salpingo-oophorectomy History of throat surgery THURNWALDT CYST BENIGN History of tooth extraction History of tonsillectomy History of adenoidectomy Family History Son Family history of diabetes mellitus Father Cancer Sister Cancer Breast cancer Heart disease H/O heart artery stent Mother Myocardial infarction Grandmother AAA (abdominal aortic aneurysm) Myocardial infarction Denies family history of Ovarian cancer Prostate cancer Colorectal cancer Social History Smoking Status: Unknown if ever smoked Preferred Language: Chinese Communication Ability: Impaired Communication Ability Comment: unk Visual Impairment: Limited Hearing Ability: Use of Hearing Aid 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 Required: No Beliefs That Will Affect Care: Taoist marital status: / Current Living Situation: Personal Care Facility Current Living Situation Comment: [facility] current occupational status: retired How many Children do You have: 3 Feels Safe at Home: Yes Childhood Exposure to Second-Hand Smoke: No Diet: Soft caffeine: Yes during the past year weight has: remained stable Dental Care, Regularly: No Physical Activity Frequency: Does not Exercise Seatbelt Use: always Sunscreen Use: Yes Assistive Devices: Walker Assistive Devices Comment: unk Review of Systems Review of Systems: ROS limited secondary to patient's underlying dementia- no family at bedside. Chart reviewed Physical Exam Physical Exam: PHYSICAL EXAM: General: awake, alert and easily arouseable Head: old ecchymosis to let eye ENT: PERRL, EOMI, no pharyngeal exudate, mucous membranes Dry Neuro: AAO x 2, speech clear and mostly appropriate in answering simple questions and following commands, moves all extremities slowly, sensation intact, no facial droop Chest: equal rise and fall of the chest, no accessory muscle use, no heaves or thrills, decreased in bases Cardiac: Regular rate and rhythm, telemetry reviewed- NSR, skin warm dry, cap refill <3 seconds, peripheral pulses +2 no JVD, Grade I systolic murmur, no JVD, no edema, left groin with abdullahi wrap around groin site- no strike through, no surrounding hematoma or ecchymosis, RIGHT neck incision with Dermabond, small amount of ecchymosis, no hematoma or bleeding GI: NABS x 4 quadrants, soft, nontender to palpation, no rebound, guarding or tenderness Extremities: Left Hip with timmy present- intact no drainage, no hematoma Results & Data Results & Data Vital Signs (Past 12 Hours) Vital Signs Temp Pulse Pulse Resp BP BP BP 03/26/24 17:39 36.5 C 03/26/24 17:37 63 03/26/24 17:30 62 14 117/55 L 03/26/24 17:00 68 15 124/57 L 03/26/24 16:45 36.2 C L 69 14 123/49 L 03/26/24 16:35 79 13 124/62 03/26/24 16:25 76 16 116/56 L 03/26/24 16:15 78 14 117/58 L 03/26/24 16:05 79 17 108/72 03/26/24 15:55 73 16 122/53 L 03/26/24 15:45 76 15 105/69 03/26/24 15:35 77 22 120/61 03/26/24 15:26 36.1 C L 78 19 129/59 L 03/26/24 11:24 117/46 L 03/26/24 10:34 36.5 C 69 20 124/52 L BP Pulse Ox O2 Del Method O2 Flow Rate 03/26/24 17:39 03/26/24 17:37 03/26/24 17:30 98 Room Air 03/26/24 17:00 116/43 L 97 Room Air 03/26/24 16:45 112/45 L 95 Room Air 03/26/24 16:35 121/50 L 96 Room Air 03/26/24 16:25 110/46 L 96 Room Air 03/26/24 16:15 120/50 L 94 Room Air 03/26/24 16:05 108/47 L 98 Room Air 03/26/24 15:55 113/48 L 98 Room Air 03/26/24 15:45 115/47 L 100 Oxymask 2 03/26/24 15:35 121/49 L 100 Oxymask 2 03/26/24 15:26 111/44 L 98 Oxymask 2 03/26/24 11:24 03/26/24 10:34 94 Room Air Laboratory Results Abnormal lab results 03/26/24 03/26/24 03/26/24 Range/Units 10:15 13:56 14:35 Activ Coag Time Kaolin 244 H 159 H (94-140) SECONDS BUN 56 H (6-23) mg/dl Creatinine 2.40 H (0.6-1.2) mg/dl BUN/Creatinine Ratio 23.3 H (10-20) Glucose 121 H (70-99(Fasting)) mg/dl POC Glucose (70-99) mg/dl 03/26/24 Range/Units 18:02 Activ Coag Time Kaolin (94-140) SECONDS BUN (6-23) mg/dl Creatinine (0.6-1.2) mg/dl BUN/Creatinine Ratio (10-20) Glucose (70-99(Fasting)) mg/dl POC Glucose 140 H (70-99) mg/dl Medications Administered Lactated Ringer's (Lr) 1,000 mls @ 80 mls/hr IV .[id number] [facility] Stop: 04/25/24 17:38 Last Admin: 03/26/24 18:20 Dose: 80 mls/hr Documented By: NMK Discontinued Medications Bupivacaine HCl/Epinephrine Bitart (Bupivacaine/Epinephrine 0.5% Mpf 1:200,000 30 Ml Vial) Confirm Administered Dose 30 ml .ROUTE .STK-MED ONE Stop: 03/26/24 12:34 Last Admin: 03/26/24 15:21 Dose: 30 ml Documented By: EJS Heparin Sodium/Sodium Chloride (Heparin In Nss Infusion 1000 Unit/500 Ml (2 U/Ml) Bag) Confirm Administered Dose 2,000 units IV .STK-MED ONE Stop: 03/26/24 12:32 Last Admin: 03/26/24 15:21 Dose: Not Given Documented By: PROOF TECHNICIAN HELPER Sodium Chloride (Nss) 1,000 mls @ 50 mls/hr IV .Q20H [facility] Stop: 03/27/24 01:59 Last Infusion: 03/26/24 12:55 Dose: Infused Documented By: Admin: 03/26/24 10:40 Dose: 50 mls/hr Documented By: HBM Cefazolin Sodium (Ancef 2000mg) 2,000 mg in 15 mls @ 7.5 mls/min IV PREOP ROHIT; Protocol Stop: 03/26/24 18:00 Last Admin: 03/26/24 12:58 Dose: 7.5 mls/min Documented By: [id number] Thrombin (Thrombin For Soln 01403 Unit Kit) Confirm Administered Dose 20,000 units .ROUTE .STK-MED ONE Stop: 03/26/24 12:34 Last Admin: 03/26/24 13:43 Dose: Not Given Documented By: PROOF TECHNICIAN HELPER Coding Level of Care Code 17858 IN/OBS CONSULT LVL 3,45M Diagnoses Stenosis of right internal carotid artery with cerebral infarction I63.231 Chronic hyponatremia E87.1 Dementia with agitation, unspecified dementia severity, unspecified dementia type F03.911 Dementia behavioral or psychological symptom: with agitation Dementia severity: unspecified severity Dementia type: unspecified type Gastroesophageal reflux disease, unspecified whether esophagitis present K21.9 Esophagitis presence: esophagitis presence not specified CVA (cerebral vascular accident) I63.9 (3) Dementia Dementia behavioral or psychological symptom: with agitation Dementia severity: unspecified severity Dementia type: unspecified type Qualified Code(s): F03.911 - Unspecified dementia, unspecified severity, with agitation (4) GERD (gastroesophageal reflux disease) Esophagitis presence: esophagitis presence not specified Qualified Code(s): K21.9 - Gastro-esophageal reflux disease without esophagitis
[2024-03-26] MEDS: LACTATED RINGER'S 1,000 ML IV SCH (18:20)
[2024-03-26] MEDS: FAMOTIDINE 20 MG TAB PO SCH (21:00)
[2024-03-26] MEDS: amLODIPine BESYLATE 5 MG TAB PO SCH (21:00)
[2024-03-26] MEDS: carvediloL 6.25 MG TAB PO SCH (21:01)
[2024-03-26] MEDS: risperiDONE 0.5 MG TABLET PO SCH (21:01)
[2024-03-26] MEDS: busPIRone 5 MG TAB PO SCH (21:01)
[2024-03-26] MEDS: MELATONIN 3 MG TAB PO SCH (21:01)
[2024-03-26] MEDS: ROSUVASTATIN CALCIUM 20 MG TAB PO SCH (21:02)
[2024-03-26] MEDS: CEROVITE ADV FORMULA TAB PO SCH (21:02)
[2024-03-26] MEDS: TICAGRELOR 90 MG TAB PO SCH (21:02)
[2024-03-26] MEDS: ARTIFICIAL TEARS OP SCH (21:05)
[2024-03-26] MEDS: ACETAMINOPHEN 500 MG TAB PO SCH (21:05)
[2024-03-27] MEDS: LEVOTHYROXINE SODIUM 125 MCG TABLET PO SCH (06:15)
--- NOTE | 2024-03-27 07:59 | Critical Care Progress Note ---
Date of Service March 27, 2024 Assessment & Plan (1) Stenosis of right internal carotid artery with cerebral infarction: (2) Chronic hyponatremia: (3) Dementia: (4) GERD (gastroesophageal reflux disease): (5) CVA (cerebral vascular accident): Plan Impression: 89 YOF admitted to ICU following RIGHT TCAR on 03/26/24 for symptomatic 99% stenosis of GREGORIO. She is noted for recent admissions for TIA, Left hip fracture s/p arthroplasty and CVA during hospital recovery from her surgery. Recommendations: 1. Status post TCAR: Appears to be doing well. Management per vascular surgery. Okay to discontinue arterial line 2. Dementia: Stable 3. Hypertension: Continue outpatient medications 4. Anemia: Stable. No indication for transfusion. 5. Acute renal failure: Serum creatinine had doubled at the time of admission. Recommend repeat BMP. Patient's critical care issues are resolved. Critical care will sign off. Disposition per vascular surgery. Feel free to contact us if we can be of additional assistance Admission and Anticipated Discharge Date Admission Date: March 26, 2024 Subjective Patient seen and examined. EMR reviewed. Discussed with critical care bedside nurse as well as overnight WILLIS and on multidisciplinary rounds Review of Systems 2 Review of Systems: All systems reviewed & are unremarkable except as noted in Subjective Physical Exam 2 Constitutional: WD/WN, vitals as above Neck: trachea midline, no thyromegaly Respiratory: normal respiratory effort, lungs clear to auscultation Cardiovascular: RRR, no murmur, no edema Gastrointestinal (Abdomen): normal bowel sounds, soft, nontender, no hepatosplenomegaly Musculoskeletal: Extremities: extremities normal to inspection Skin: no rashes, warm and dry Neurologic: Nonfocal exam Lymphatic: no cervical lymphadenopathy Results & Data Results & Data Vital Signs (Past 12 Hours) Vital Signs Temp Pulse Resp BP Pulse Ox 03/27/24 05:54 73 16 93 03/27/24 05:21 73 17 97 03/27/24 05:03 70 16 98 03/27/24 05:00 103/42 L 03/27/24 04:57 77 15 100 03/27/24 04:42 72 18 96 03/27/24 04:31 110/51 L 03/27/24 04:15 89 17 98 03/27/24 04:00 36.1 C L 03/27/24 04:00 123/54 L 03/27/24 04:00 123/54 L 03/27/24 04:00 123/54 L 03/27/24 04:00 123/54 L 03/27/24 04:00 88 15 99 03/27/24 03:30 87 19 91 03/27/24 03:24 87 24 99 03/27/24 03:00 124/55 L 03/27/24 02:57 81 10 L 98 03/27/24 02:54 77 18 98 03/27/24 02:30 78 15 98 03/27/24 02:30 113/66 03/27/24 02:30 113/66 03/27/24 02:15 96 H 22 99 03/27/24 02:03 81 22 98 03/27/24 02:00 112/60 03/27/24 02:00 112/60 03/27/24 01:48 82 17 99 03/27/24 01:30 89 14 03/27/24 01:30 100/69 03/27/24 01:30 100/69 03/27/24 01:18 103 H 20 100 03/27/24 01:06 73 11 L 97 03/27/24 01:00 122/48 L 03/27/24 00:36 71 16 98 03/27/24 00:30 68 14 99 03/27/24 00:30 116/49 L 03/27/24 00:30 116/49 L 03/27/24 00:30 116/49 L 03/27/24 00:30 116/49 L 03/27/24 00:21 71 16 100 03/27/24 00:03 69 15 98 03/27/24 00:00 112/68 03/27/24 00:00 112/68 03/27/24 00:00 112/68 03/27/24 00:00 36.1 C L 03/27/24 00:00 70 03/26/24 23:57 70 11 L 98 03/26/24 23:45 73 5 L 100 03/26/24 23:15 102 H 20 99 03/26/24 22:45 64 13 98 03/26/24 22:30 70 11 L 100 03/26/24 22:30 119/51 L 03/26/24 22:30 119/51 L 03/26/24 22:30 119/51 L 03/26/24 22:18 72 0 L 100 03/26/24 22:00 110/55 L 03/26/24 22:00 110/55 L 03/26/24 22:00 67 13 03/26/24 21:54 78 16 99 03/26/24 21:36 89 10 L 100 03/26/24 21:30 131/66 03/26/24 21:24 103 H 14 100 03/26/24 21:21 76 12 99 03/26/24 21:00 129/58 L 03/26/24 21:00 129/58 L 03/26/24 21:00 129/58 L 03/26/24 21:00 64 16 97 03/26/24 20:45 66 12 97 03/26/24 20:30 82 21 99 03/26/24 20:30 146/74 H 03/26/24 20:30 146/74 H 03/26/24 20:30 146/74 H 03/26/24 20:15 78 12 99 03/26/24 20:03 69 17 97 03/26/24 20:00 35.9 C L 03/26/24 20:00 137/61 03/26/24 20:00 137/61 Laboratory Results 03/26/24 10:15 Diagnostic Findings No new imaging Coding Level of Care Code 69850 SUB INP/OBS CARE 2MIN Diagnoses Stenosis of right internal carotid artery with cerebral infarction I63.231 Chronic hyponatremia E87.1 Dementia with agitation, unspecified dementia severity, unspecified dementia type F03.911 Dementia type: unspecified type Dementia severity: unspecified severity Dementia behavioral or psychological symptom: with agitation Gastroesophageal reflux disease, unspecified whether esophagitis present K21.9 Esophagitis presence: esophagitis presence not specified CVA (cerebral vascular accident) I63.9 (3) Dementia Dementia type: unspecified type Dementia severity: unspecified severity D ementia behavioral or psychological symptom: with agitation Qualified Code(s): F03.911 - Unspecified dementia, unspecified severity, with agitation (4) GERD (gastroesophageal reflux disease) Esophagitis presence: esophagitis presence not specified Qualified Code(s): K 21.9 - Gastro-esophageal reflux disease without esophagitis
--- NOTE | 2024-03-27 08:32 | Orthopedic Progress Note ---
Date of Service March 27, 2024 Assessment & Plan (1) History of hemiarthroplasty of left hip: Incision healing appropriately. Timmy removed today and steri strips applied. Can weight bear as tolerated. Follow hip precautions. Can follow up as outpatient with orthopedics in approximately 1 month. Vivek Chavez is a 89 year old patient 15 days s/p left hip hemiarthroplasty done for a displaced femoral neck fracture. We were asked to check her hip incision and possibly remove her timmy. She had a cva during her post op period and underwent TCAR yesterday. Review of Systems All systems reviewed & are unremarkable except as noted in HPI & below. Physical Exam . Patient is awake, speaking some but does not really answer questions. Left hip: incision intact. Condon intact. Slight erythema around some timmy. No drainage. No signs of infection. No apparent pain with motion of the left hip. Dorsalis pedis pulse present with doppler with staff. Results & Data Results & Data Laboratory Results . Diagnostic Findings . PG Care Time/CCT Total # of Minutes Spent Total Time Spent with Patient: Total time spent is greater than 50% in coordination of care (as documented) at patient's floor/unit and/or counseling patient: Coding Level of Care Code 71141 Post Operative Follow-Up Diagnoses History of hemiarthroplasty of left hip Z96.642
[2024-03-27] MEDS: FUROSEMIDE 20 MG TAB PO SCH (08:58)
[2024-03-27] MEDS: ASPIRIN 81 MG ECTAB PO SCH (08:58)
[2024-03-27] MEDS: DULoxetine HCL 20 MG CAP PO SCH (08:58)
[2024-03-27 09:09] LABS: BUN Creatinine Ratio 24.9 (10-20); Calcium 8.6 mg/dl (8.6-10.3); Creatinine Clr Calc Pharmacy 15.8 ml/min; Est GFR (African American) 27.5 ml/min; Est GFR (Non-African American) 23.7 ml/min; Potassium 5.1 mmol/L (3.5-5.1)
[2024-03-27] MEDS: CHOLECALCIFEROL 25 MCG (1000 UNITS) TAB PO SCH (10:53)
[2024-03-27] MEDS: MULTIVITAMIN TAB PO SCH (10:53)
[2024-03-27] MEDS: OMEGA-3 (PURIFIED FISH OIL) 1 GM CAP PO SCH (10:53)
[2024-03-27] MEDS: SODIUM CHLORIDE 1 GM TABLET PO SCH (10:54)
--- NOTE | 2024-03-27 13:27 | Surgery Progress Note ---
Date of Service March 27, 2024 Assessment & Plan (1) Stenosis of right internal carotid artery with cerebral infarction: Plan: Patient POD#1 from a right TCAR. Doing well without any new deficits. Will order PT/OT and send to her care facility tomorrow. Admission and Anticipated Discharge Date Admission Date: March 26, 2024 Subjective Patient awake without any new neuro deficits Physical Exam Constitutional: WD/WN, vitals as above Neck: trachea midline Respiratory: normal respiratory effort; no respiratory distress Cardiovascular: Rate/Rhythm: regular rate and regular rhythm Skin: + incision (dry and clean) Neurologic: moves all extremities (left upper ext weakness unchanged post op) Psychiatric: Orientation: alert and cooperative Results & Data Vital Signs (Past 12 Hours) Vital Signs Temp Pulse Resp BP Pulse Ox O2 Del Method 03/27/24 12:01 127/48 L 03/27/24 12:00 78 17 99 Room Air 03/27/24 12:00 36.7 C 03/27/24 11:31 123/81 03/27/24 11:30 89 16 03/27/24 11:00 133/61 03/27/24 11:00 72 19 03/27/24 10:30 124/97 03/27/24 10:24 74 17 98 Room Air 03/27/24 10:03 80 22 100 03/27/24 10:00 130/58 L 03/27/24 09:54 73 17 99 03/27/24 09:30 117/46 L 03/27/24 09:27 67 15 98 03/27/24 09:12 75 14 97 03/27/24 09:00 120/73 03/27/24 08:54 79 14 93 03/27/24 08:48 72 13 111/52 L 94 Room Air 03/27/24 08:33 77 15 96 03/27/24 08:31 102/49 L 03/27/24 08:18 82 16 99 03/27/24 08:15 71 16 99 03/27/24 08:00 36 C L 03/27/24 08:00 79 03/27/24 07:30 114/65 03/27/24 07:30 Room Air 03/27/24 07:21 75 17 100 Room Air 03/27/24 07:18 75 13 95 03/27/24 07:00 106/83 03/27/24 06:57 75 17 99 03/27/24 06:18 74 18 95 03/27/24 05:54 73 16 93 03/27/24 05:21 73 17 97 03/27/24 05:03 70 16 98 03/27/24 05:00 103/42 L 03/27/24 04:57 77 15 100 03/27/24 04:42 72 18 96 03/27/24 04:31 110/51 L 03/27/24 04:15 89 17 98 03/27/24 04:00 36.1 C L 03/27/24 04:00 123/54 L 03/27/24 04:00 123/54 L 03/27/24 04:00 123/54 L 03/27/24 04:00 123/54 L 03/27/24 04:00 88 15 99 03/27/24 03:30 87 19 91 03/27/24 03:24 87 24 99 03/27/24 03:00 124/55 L 03/27/24 02:57 81 10 L 98 03/27/24 02:54 77 18 98 03/27/24 02:30 78 15 98 03/27/24 02:30 113/66 03/27/24 02:30 113/66 03/27/24 02:15 96 H 22 99 03/27/24 02:03 81 22 98 03/27/24 02:00 112/60 03/27/24 02:00 112/60 03/27/24 01:48 82 17 99 03/27/24 01:30 89 14 03/27/24 01:30 100/69 03/27/24 01:30 100/69
--- NOTE | 2024-03-28 14:59 | Communication Note ---
Date of Service: March 28, 2024 patient was ready for discharge from surgery standpoint yesterday
--- NOTE | 2024-03-28 15:44 | Surgery Progress Note ---
Date of Service March 28, 2024 Assessment & Plan (1) Stenosis of right internal carotid artery with cerebral infarction: Plan: Patient POD#2 from a right TCAR. Doing well without any new deficits. Patient ready for discharged to skill nursing. Admission and Anticipated Discharge Date Admission Date: March 26, 2024 Subjective Patient awake without any new neuro deficits Physical Exam Constitutional: WD/WN, vitals as above Respiratory: normal respiratory effort; no respiratory distress Cardiovascular: Rate/Rhythm: regular rate and regular rhythm Skin: + incision (dry and clean) Neurologic: moves all extremities (left upper ext weakness unchanged post op) Psychiatric: Orientation: alert and cooperative Results & Data Vital Signs (Past 12 Hours) Vital Signs Temp Pulse Resp BP Pulse Ox O2 Del Method 03/28/24 14:05 36.3 C L 70 16 145/55 H 100 Room Air 03/28/24 07:25 36.4 C L 67 16 135/66 97 Room Air 03/28/24 07:00 Room Air
[2024-03-28 22:47] VITALS: TEMP 97.5
[2024-03-29 08:01] VITALS: PULSE 74; RESP 16; O2SAT 100
[2024-03-29 11:38] VITALS: BP 147/72
== END 2024-03-29 14:17 | DRG 35 ==
LOC: ASU 10:04 → 1E 10:05 → 3E 03-27 17:37
PROC: EV.TCAR (2024-03-26 12:00)
DX: N17.9 Acute kidney failure, unspecified; F41.9 Anxiety disorder, unspecified; S72.92XD Unspecified fracture of left femur, subsequent encounter for closed fracture with routine healing; I12.9 Hypertensive chronic kidney disease with stage 1 through stage 4 chronic kidney disease, or unspecified chronic kidney disease; I63.231 Cerebral infarction due to unspecified occlusion or stenosis of right carotid arteries; W19.XXXD Unspecified fall, subsequent encounter; Y92.129 Unspecified place in nursing home as the place of occurrence of the external cause; E03.9 Hypothyroidism, unspecified; I69.334 Monoplegia of upper limb following cerebral infarction affecting left non-dominant side; Z79.890 Hormone replacement therapy; E87.1 Hypo-osmolality and hyponatremia; F03.90 Unspecified dementia, unspecified severity, without behavioral disturbance, psychotic disturbance, mood disturbance, and anxiety; E78.5 Hyperlipidemia, unspecified; Z88.8 Allergy status to other drugs, medicaments and biological substances; Z96.642 Presence of left artificial hip joint; Z88.2 Allergy status to sulfonamides; N18.9 Chronic kidney disease, unspecified

== ENCOUNTER 2024-05-01 15:18 | Inpatient (IN) ==
--- NOTE | 2024-05-01 15:28 | Emergency Department Note ---
Impression & Plan Anemia, Acute renal failure (ARF), Acute dehydration, Leukocytosis ED Provider Note NAME: YRAIEL VALDEZ AGE: 89 SEX: F : 1935 ARRIVES VIA: Ambulance INFORMANT: Patient, Daughter ED PROVIDER(S): Miki Mack MD CHIEF COMPLAINT: Abnormal labs MEDICAL DECISION MAKING: Patient presents due to concern for anemia. IV was established and blood work was obtained. Patient was ordered 1 unit of PRBCs the patient's outpatient hemoglobin was 6 and the most recent was greater than 8. Patient is on aspirin and Brilinta. I did speak with the patient's daughter via phone who consented over the phone to receive transfusion 1 unit PRBCs. Per review of the patient's outpatient blood work she did have a white count of 16 creatinine of 4. The patient was ordered blood culture empiric IV Rocephin and lactate. This was ordered along with IV fluids. Critical Care: I have personally spent 41 minutes of critical care time in direct management of this patient. This includes bedside care, interpretation of diagnostic studies, and testing, discussion with consultants, patient, and family members, and other require inpatient management activities. This 41 minutes is in excess of all separately billable procedures. Discussion w/ other healthcare providers: Dr. Putnam inpatient medicine service Prior /Outside records reviewed: None Differential diagnosis: Infection, dehydration, metabolic abnormality, hypo/hyperglycemia, electrolyte imbalance, anemia, UTI, pneumonia, thyroid dysfunction among others were considered. Diagnostics, as interpreted by me: ECG: Sinus, rate of 85, wide QRS, right bundle branch block pattern. Cardiac monitoring: An order was placed for continuous cardiac monitoring. The monitor shows a rate of 87 with sinus rhythm. Patient was placed on pulse oximetry Medical decision rules: None Imaging studies: I informally interpreted the patient's chest x-ray does not show obvious pneumonia or pneumothorax with formal report to follow. HPI: Patient presents due to concern for abnormal outpatient blood work. The patient does reside at a care facility and was being evaluated for respiratory illness and associated fever. The patient did have outpatient blood work that did show a creatinine of 4 and a hemoglobin of 6. Patient does have a history of dementia. Daughter is to arrive to discuss further goals of care as there have been some discussion about whether or not to place patient on hospice. The patient is DNR DNI. Patient is unable to participate most of the history. PAST MEDICAL HISTORY: See Below PAST SURGICAL HISTORY: See Below SOCIAL HISTORY: See Below HOME MEDICATIONS: See Below ALLERGIES: See Below VITALS: See Below PHYSICAL EXAMINATION: GENERAL: Frail in appearance, pale, no apparent distress. EYE EXAM: Normal conjunctiva. PERRL, no anisocoria and EOM's grossly intact w/o pain. OROPHARYNX: Dry mucus membranes, edentulous. NECK: Trachea midline, no stridor. Skin glue noted on the right lower neck. No hematoma drainage or swelling noted. Supple, no nuchal rigidity, no adenopathy, non-tender. No signs of meningismus. FROM of the neck with good chin to chest and neck extension. LUNGS: Clear to auscultation. Normal chest wall mechanics. HEART: NSR, no MRG. ABDOMEN: Abdomen soft, non-tender, no masses, no rebound or guarding. BACK: No CVA TTP. SKIN: No rashes and no bruising. UPPER EXTREMITIES: Upper extremities are grossly normal. LOWER EXTREMITIES: Grossly normal, no edema. NEURO EXAM: Awake and alert follows occasional commands, cranial nerves II-XII grossly intact, normal speech, moves all 4 extremities. 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 History of TIA (transient ischemic attack) Acute hypokalemia 03/12/24 Chronic hyponatremia Delirium Acute hyponatremia (Acute) 03/11/24 Elevated lactic acid level (Acute) 03/11/24 Closed fracture of right pelvis (Acute 03/11/24) Small nondisplaced right sacral ala fracture Closed fracture of neck of left femur (Acute 03/11/24) Displaced subcapital left femoral neck fracture from a fall Fall from standing (Acute) Combative behavior (Acute) Headache (Acute) Sundowning Dementia Acute respiratory failure with hypoxia 01/20/24 Aspiration into airway Acute UTI (Acute) 01/18/24 PATRICIA (acute kidney injury) (Acute) 01/18/24 Sepsis 01/18/24 UTI (urinary tract infection), uncomplicated 01/16/24 Anxiety Forgetfulness Orthostatic hypotension dysautonomic syndrome Diarrhea Hyponatremia (Acute) Anemia (Acute) Urinary incontinence Ambulatory dysfunction Hearing loss (Acute) General weakness Weight loss Poor balance Poor eyesight Right shoulder pain Tinea corporis 02/23/21 GERD (gastroesophageal reflux disease) Pessary maintenance Dysphagia Peripheral edema Rectocele Insomnia Cystocele Recurrent falls Situational anxiety Pulmonary nodule (Chronic) Monoclonal gammopathy of undetermined significance (Chronic) Medical History MGUS (monoclonal gammopathy of unknown significance) Hx: UTI (urinary tract infection) Gutierrez catheter in place Right carotid artery occlusion Recurrent falls Anxiety Hx of colonic polyps Ischemic stroke (02/2024) Closed pelvic fracture (~03/11/24) small nondisplaced right sacral ala fracture- due to fall Closed fracture of neck of left femur (~03/11/24) displaced subcapital left femoral neck fracture -due to fall - surgery 03/12/24 Localized edema Localized enlarged lymph nodes Nonrheumatic aortic (valve) stenosis Hypertensive chronic kidney disease with stage 1 through stage 4 chronic kidney disease, or unspecified chronic kidney disease Urinary retention Delirium due to known physiological condition Transient ischemic attack (TIA) Anemia Hypertension Hypothyroidism Sjogren's syndrome Hypertensive urgency Constipation Dermatitis Neuropathy Cervical muscle strain Peripheral edema Insomnia Sensorineural hearing loss (SNHL) of both ears Memory changes Aortic valve sclerosis Cervical lymphadenopathy Chronic hoarseness Mixed hyperlipidemia Osteoporosis Unsteady gait Vocal cord paralysis Trigeminal neuralgia right Spinal stenosis Osteoarthritis IBS (irritable bowel syndrome) GERD (gastroesophageal reflux disease) Macular degeneration Claustrophobia Cardiac murmur Hyperlipidemia Surgical History History of transurethral resection of bladder tumor (TURBT) (03/06/24) Hx of colonoscopy with polypectomy Hx of arthroscopy of shoulder 2019, left History of lumpectomy History of hysterectomy History of bladder surgery BLADDER TACK History of total abdominal hysterectomy and bilateral salpingo-oophorectomy History of throat surgery THURNWALDT CYST BENIGN History of tooth extraction History of tonsillectomy History of adenoidectomy Family History Son Family history of diabetes mellitus Father Cancer Sister Cancer Breast cancer Heart disease H/O heart artery stent Mother Myocardial infarction Grandmother AAA (abdominal aortic aneurysm) Myocardial infarction Denies family history of Ovarian cancer Prostate cancer Colorectal cancer Social History Smoking Status: Unknown if ever smoked Preferred Language: Argentine Communication Ability: Effective Communication Ability Comment: unk Visual Impairment: Limited Hearing Ability: Use of Hearing Aid Layout Artist Required: No Beliefs That Will Affect Care: Buddhism marital status: / Current Living Situation: Personal Care Facility Current Living Situation Comment: [facility] current occupational status: retired How many Children do You have: 3 Feels Safe at Home: Yes Childhood Exposure to Second-Hand Smoke: No Diet: Soft caffeine: Yes during the past year weight has: remained stable Dental Care, Regularly: No Physical Activity Frequency: Does not Exercise Seatbelt Use: always Sunscreen Use: Yes Assistive Devices: Wheelchair Allergies Allergies Allergy/AdvReac Type Severity Reaction Status Date / Time Sulfa (Sulfonamide Allergy Intermediate Rash Verified 04/29/24 13:02 Antibiotics) adhesive Allergy Mild rash Verified 04/29/24 13:02 enalaprilat [From Vasotec] Allergy Unknown Unknown Verified 04/29/24 13:02 atorvastatin AdvReac Severe Unconscious Verified 04/29/24 13:02 Home Meds Home Medications Medication Instructions Recorded Confirmed acetaminophen 500 mg tablet 1,000 mg PO HS 02/03/24 05/01/24 (Tylenol Extra Strength) amlodipine 5 mg tablet 5 mg PO BID 02/03/24 05/01/24 carvedilol 6.25 mg tablet 6.25 mg PO BID 02/03/24 05/01/24 cholecalciferol (vitamin D3) 50 50 mcg PO QAM 02/03/24 05/01/24 mcg (2,000 unit) capsule (Vitamin D3) cyclosporine 0.05 % eye drops in a 1 drp OPB BID 02/03/24 05/01/24 dropperette famotidine 20 mg tablet 20 mg PO BID 02/03/24 05/01/24 fluorometholone 0.1 % eye 1 drp OPB QID 02/03/24 05/01/24 drops,suspension levothyroxine 125 mcg tablet 125 mcg PO QAM 02/03/24 05/01/24 vit C 250 mg-vit E 90 mg-zinc 40 1 tab PO BID 02/03/24 05/01/24 mg-copper 1 [id number] capsule (PreserVision AREDS-2) acetaminophen 325 mg tablet 650 mg PO Q6 PRN Fever Or Pain 02/28/24 05/01/24 multivitamin 1 tab PO QAM 02/28/24 05/01/24 omega [id number] oil 1,200 mg 1 cap PO QAM 02/28/24 05/01/24 (144 mg-216 mg) capsule (Fish Oil) rosuvastatin 20 mg tablet 20 mg PO HS 02/28/24 05/01/24 buspirone 10 mg tablet 5 mg PO QID 03/06/24 05/01/24 sodium chloride 1,000 mg soluble 1,000 mg PO DAILY 03/06/24 05/01/24 tablet peg 400 0.4 %-propylene glycol 1 drp OPB QID 03/11/24 05/01/24 (PF) 0.3 % eye drops (Systane Ultra (PF)) bisacodyl 10 mg rectal suppository 10 mg NE DAILY PRN Constipation 03/25/24 05/01/24 (Dulcolax (bisacodyl)) docusate sodium 100 mg capsule 100 mg PO DAILY PRN Constipation 03/25/24 05/01/24 (Colace) ticagrelor 90 mg tablet (Brilinta) 90 mg PO BID on DAPT - Aspirin 03/26/24 05/01/24 81mg + Ticagrelor 90mg BID duloxetine 30 mg capsule,delayed 30 mg PO DAILY 05/01/24 05/01/24 release sprinkle risperidone 0.25 mg tablet 0.25 mg PO HS 05/01/24 05/01/24 rosuvastatin 20 mg tablet 20 mg PO HS 05/01/24 05/01/24 sennosides 8.6 mg tablet 8.6 mg PO HS 05/01/24 05/01/24 Previous Rx's Medication Instructions Recorded aspirin 81 mg tablet,delayed 81 mg PO QAM 60 days #60 tabs 03/21/24 release Results & Data (ED) Vital Signs Vital Signs - 24 hr 05/01/24 15:25 05/01/24 15:34 05/01/24 15:45 Temperature Temperature Source Pulse Rate 86 86 Pulse Rate [Right Finger] 86 Pulse Strength Respiratory Rate 18 18 Respiratory Effort / Characteristics Non-Labored Spontaneous Non-Labored Spontaneous Blood Pressure 96/52 L Blood Pressure [Right Arm] 96/52 L Blood Pressure Mean 66 Blood Pressure Mean [Right Arm] 66 Blood Pressure Position Lying Blood Pressure Position [Right Arm] Lying Pulse Oximetry 100 Oxygen Delivery Method Room Air Room Air Sepsis Recent Fever Within 48 Hours No Sepsis New/Unexplained Change in Mental Status No Sepsis Action Taken by Nursing No Action Required 05/01/24 15:58 05/01/24 17:03 05/01/24 17:14 Temperature 36.5 C 36.0 C L Temperature Source Axillary Axillary Pulse Rate 86 96 H 95 H Pulse Rate [Right Finger] Pulse Strength Respiratory Rate 18 20 20 Respiratory Effort / Characteristics Blood Pressure 96/52 L 96/52 L Blood Pressure [Right Arm] Blood Pressure Mean 66 66 Blood Pressure Mean [Right Arm] Blood Pressure Position Blood Pressure Position [Right Arm] Pulse Oximetry 100 100 100 Oxygen Delivery Method Room Air Sepsis Recent Fever Within 48 Hours Sepsis New/Unexplained Change in Mental Status Sepsis Action Taken by Nursing 05/01/24 17:20 05/01/24 17:35 05/01/24 18:05 Temperature 36.2 C L 36.4 C L 36.5 C Temperature Source Oral Oral Oral Pulse Rate 94 H 94 H 95 H Pulse Rate [Right Finger] Pulse Strength Normal Respiratory Rate 18 16 16 Respiratory Effort / Characteristics Blood Pressure 98/50 L 108/55 L 105/69 Blood Pressure [Right Arm] Blood Pressure Mean 66 72 81 Blood Pressure Mean [Right Arm] Blood Pressure Position Lying Lying Lying Blood Pressure Position [Right Arm] Pulse Oximetry 98 98 Oxygen Delivery Method Sepsis Recent Fever Within 48 Hours Sepsis New/Unexplained Change in Mental Status Sepsis Action Taken by Correction Medications Current Medication List: was personally reviewed by me Laboratory Data Attestation: I reviewed the patient's lab results. 05/02/24 03:00 05/02/24 03:00 Lab Results 05/01/24 05/01/24 Range/Units 15:45 15:51 WBC 15.72 H (4.8-10.8) K/ul RBC 1.80 L (4.20-5.40) M/uL Hgb 5.2 L* (12.0-16.0) g/dl Hct 15.8 L* (37.0-47.0) % MCV 87.8 (80.0-100.0) fL MCH 28.9 (25.0-34.0) pg MCHC 32.9 (32.0-36.0) g/dL RDW Std Deviation 53.0 H (36.4-46.3) fL RDW Coeff of Neto 17.2 H (11.5-14.5) % Plt Count 262 (130-400) K/uL MPV 10.5 (9.4-12.4) fL Immature Gran % (Auto) 1.0 % Neut % (Auto) 80.5 % Lymph % (Auto) 10.2 % [place] % (Auto) 8.0 % Eos % (Auto) 0.2 % Baso % (Auto) 0.1 % Neut # (Auto) 12.67 H (1.40-6.50) K/uL Lymph # (Auto) 1.60 (1.20-3.40) K/uL [place] # (Auto) 1.26 H (0.11-0.59) K/uL Eos # (Auto) 0.03 (0.00-0.50) K/uL Baso # (Auto) 0.01 (0.00-0.20) K/uL Immature Gran # (Auto) 0.15 (0.01-0.20) K/uL Anisocytosis Present Ovalocytes 1+ Acanthocytes (Spur) 1+ PT 13.5 H (9.0-12.0) Seconds INR 1.3 H (0.9-1.1) APTT 33 H (21-31) Seconds PTT Ratio 1.2 Sodium 138 (136-145) mmol/L Potassium 3.8 (3.5-5.1) mmol/L Chloride 109 H (98-107) mmol/L Carbon Dioxide 19 L (21-32) mmol/L Anion Gap 10 (3-11) BUN 66 H (6-23) mg/dl Creatinine 4.30 H (0.6-1.2) mg/dl Est Cr Clr Drug Dosing 6.4 ml/min eGFR 9.35 BUN/Creatinine Ratio 15.3 (10-20) Glucose 72 (70-99(Fasting)) mg/dl Lactate 1.5 (0.4-2.0) mmol/L Calcium 8.0 L (8.6-10.3) mg/dl Iron 17 L (35-150) mcg/dl TIBC 158 L (250-450) mcg/dl Unsaturated IBC 141 L (155-355) mcg/dl Transferrin % Sat 11 L (15-50) % Ferritin 428.5 H (8-388) ng/ml Total Bilirubin 0.3 (0.2-1.0) mg/dl AST 22 (13-39) U/L ALT 14 (7-52) U/L Alkaline Phosphatase 103 (34-104) U/L Total Protein 6.5 (6.0-8.3) gm/dl Albumin 2.5 L (3.4-5.0) gm/dl Globulin 4.0 (2.5-4.0) gm/dl Albumin/Globulin Ratio 0.6 L (0.9-2) Procalcitonin 0.20 (0-0.5) ng/ml Blood Type O Positive Antibody Screen NEGATIVE Crossmatch See Detail Administered Medications Azithromycin (Azithromycin 250 Mg Tab) 500 mg PO DAILY ROHIT Stop: 05/04/24 08:59 Last Admin: 05/02/24 08:32 Dose: 500 mg Documented By: MP Buspirone HCl (Buspirone 5 Mg Tab) 10 mg PO TID ROHIT Stop: 05/31/24 22:55 Last Admin: 05/02/24 08:33 Dose: 10 mg Documented By: Admin: 05/02/24 00:12 Dose: 10 mg Documented By: GTH Pantoprazole Sodium (Protonix) 40 mg in 10 mls @ 5 mls/min IV BID ROHIT Stop: 06/01/24 08:59 Last Admin: 05/02/24 08:33 Dose: 5 mls/min Documented By: MP Cefepime HCl (Maxipime 2000mg) 1,000 mg in 10 mls @ 5 mls/min IV Q24H ROHIT Stop: 05/11/24 19:29 Last Admin: 05/01/24 19:42 Dose: 5 mls/min Documented By: LADONNA Magnesium Sulfate/Dextrose (Magnesium Sulfate / D5w) 1 gm in 100 mls @ 50 mls/hr IV Q2H ROHIT Stop: 05/02/24 11:59 Last Admin: 05/02/24 08:32 Dose: 50 mls/hr Documented By: Infusion: 05/02/24 08:32 Dose: Infused Documented By: Admin: 05/02/24 06:45 Dose: 50 mls/hr Documented By: [facility] Discontinued Medications Ceftriaxone Sodium (Rocephin) 2,000 mg in 50 mls @ 100 mls/hr IV NOW STA Stop: 05/01/24 16:08 Last Infusion: 05/01/24 16:30 Dose: Infused Documented By: Admin: 05/01/24 15:51 Dose: 100 mls/hr Documented By: LADONNA Sodium Chloride (Nss) 500 mls @ 999 mls/hr IV .Q31M ONE Stop: 05/01/24 16:21 Last Infusion: 05/01/24 17:16 Dose: Infused Documented By: Admin: 05/01/24 15:59 Dose: 999 mls/hr Documented By: LADONNA Sodium Chloride (Nss) 1,000 mls @ 999 mls/hr IV .Q1H1M ONE Stop: 05/01/24 17:35 Last Infusion: 05/01/24 20:13 Dose: Infused Documented By: Admin: 05/01/24 17:48 Dose: 999 mls/hr Documented By: LADONNA Azithromycin 500 mg/ Dextrose 255 mls @ 127.5 mls/hr IV NOW STA; Protocol Stop: 05/01/24 19:36 Last Infusion: 05/01/24 20:27 Dose: Infused Documented By: Admin: 05/01/24 18:12 Dose: 127.5 mls/hr Documented By: LADONNA Pantoprazole Sodium 80 mg/ (Dextrose) 120 mls @ 480 mls/hr IV ONE STA Stop: 05/01/24 19:31 Last Infusion: 05/01/24 20:13 Dose: Infused Documented By: Admin: 05/01/24 19:47 Dose: 480 mls/hr Documented By: LADONNA Imaging Data Radiologist's Impression: Chest X-Ray 05/01/24 15:34 XR chest 1V portable CLINICAL HISTORY: cough, fever TECHNIQUE: Single frontal radiograph of the chest was obtained. Comparison: Comparison is made to chest radiograph 03/11/2024 FINDINGS: No lines and tubes are seen. Calcified aortic knob is seen. The lungs are clear. No evidence of pleural effusion or pneumothorax. IMPRESSION: No acute abnormalities and in particular no radiographic evidence of pneumonia. ACT 112: Negative or not required by law. Electronically signed by: Christopher Oconnell M.D. 05/01/2024 4:10 PM Discharge Plan Visit Data Chief Complaint: Abnormal Labs/Diagnostic Testing ED Provider: Miki Mack Discharge Problem: Anemia, Acute renal failure (ARF), Acute dehydration, Leukocytosis Patient Disposition: Admitted As Inpatient Discharge Instructions Interventions: ED Discharge Assessment Last Done: 05/01/24 22:36 Discharge Problem: Anemia Qualifiers: Anemia type: unspecified type Qualified Code(s): D64.9 - Anemia, unspecified Acute renal failure (ARF) Qualifiers: Acute renal failure type: unspecified Qualified Code(s): N17.9 - Acute kidney failure, unspecified Leukocytosis Qualifiers: Leukocytosis type: unspecified Qualified Code(s): D72.829 - Elevated white blood cell count, unspecified
[2024-05-01] MEDS ORDERED: SODIUM CHLORIDE 0.9% 100 ML IV PRN ×2 (15:34→18:11)
[2024-05-01] MEDS: cefTRIAXone SODIUM 2,000 MG/50 ML BAG IV STA (15:51)
[2024-05-01] MEDS: SODIUM CHLORIDE 0.9% 500 ML IV ONE (15:59)
--- NOTE | 2024-05-01 16:12 | XRay Report ---
XR chest 1V portable CLINICAL HISTORY: cough, fever TECHNIQUE: Single frontal radiograph of the chest was obtained. Comparison: Comparison is made to chest radiograph 03/11/2024 FINDINGS: No lines and tubes are seen. Calcified aortic knob is seen. The lungs are clear. No evidence of pleur al effusion or pneumothorax. IMPRESSION: No acute abnormalities and in particular no radiographic evidence of pneumonia. ACT 112: Negative or not required by law. Electronically signed by: Christopher Oconnell M.D. 05/01/2024 4:10 PM
[2024-05-01 16:21] LABS: Hematocrit (blood only) 15.8 % (37.0-47.0); Hemoglobin 5.2 g/dl (12.0-16.0); Mean Corpuscular Hemoglobin 28.9 pg (25.0-34.0); Mean Corpuscular Hgb Conc 32.9 g/dL (32.0-36.0); Mean Corpuscular Volume 87.8 fL (80.0-100.0); Mean Platelet Volume 10.5 fL (9.4-12.4); Platelet Count 262 K/uL (130-400); RDW Coefficient of Variation 17.2 % (11.5-14.5); White Blood Count 15.72 K/ul (4.8-10.8)
[2024-05-01 16:25] LABS: Albumin Globulin Ratio 0.6 (0.9-2); Albumin Level 2.5 gm/dl (3.4-5.0); BUN Creatinine Ratio 15.3 (10-20); Bilirubin,Total 0.3 mg/dl (0.2-1.0); Creatinine Clr Calc Pharmacy 6.4 ml/min; Potassium 3.8 mmol/L (3.5-5.1); Total Protein 6.5 gm/dl (6.0-8.3)
[2024-05-01 16:38] LABS: Acanthocytes 1+; Anisocytosis Present; Basophils # (auto) 0.01 K/uL (0.00-0.20); Basophils % (auto) 0.1 %; Eosinophils # (auto) 0.03 K/uL (0.00-0.50); Eosinophils % (auto) 0.2 %; Immature Granulocytes # (auto) 0.15 K/uL (0.01-0.20); Lymphocytes % (auto) 10.2 %; Monocytes # (auto) 1.26 K/uL (0.11-0.59); Neutrophils # (auto) 12.67 K/uL (1.40-6.50); Neutrophils % (auto) 80.5 %; Ovalocytes 1+
[2024-05-01 16:47] LABS: INR 1.3 (0.9-1.1); Partial Thromboplastin Ratio 1.2; Partial Thromboplastin Time 33 Seconds (21-31); Prothrombin Time 13.5 Seconds (9.0-12.0)
[2024-05-01] MEDS ORDERED: AZITHROMYCIN 250 MG TAB PO ONE (16:48)
--- NOTE | 2024-05-01 16:51 | History & Physical Report ---
Date of Service May 01, 2024 Assessment & Plan (1) Anemia: Plan: Patient sent in from [facility] on 05/01 for outpatient labs drawn showing downtrending hemoglobin level Hemoglobin 5.2 on arrival Hx of blood transfusion 3 weeks ago in the setting of multiple surgeries (hip replacement, carotid artery stent, urethral cyst removal) 1 unit ordered for transfusion Additional 1 unit ordered, and will plan to transfuse 2 days overnight H&H to be drawn 30 to 45 minutes after completion of first transfusion Signed out to overnight resident if additional unit as needed Wall last echocardiogram on revealed LVEF at 60 to 65%, will continue to monitor for signs of fluid overload/TACO in the setting of IVF resuscitation; lasix if needed Unclear etiology; unable to obtain history from patient regarding sources of potential blood loss, however feel that 3 recent surgeries are contributory Recent vitamin B12 and folate levels in January 2024 were both high Fecal occult blood ordered, pending Iron panel and ferritin ordered, pending Patient's daughter is unsure of patient's last colonoscopy Protonix 40 mg IV BID Trend H&H (2) PATRICIA (acute kidney injury): Plan: BUN 66, creatinine 4.30 (baseline ~1.10), EGFR 23.7 on arrival Suspect prerenal; daughter reports very poor p.o. intake and dehydration Avoid nephrotoxic agents for possible NSS 1500 mL IV given in the ED Will be judicious with additional fluids in the setting of national IVF shortage However, patient with significant aspiration risk and unable to encourage / push PO fluids at this time Trend BMP (3) Leukocytosis: Plan: Leukocytosis at 15.72 with a neutrophil predominance Unclear source; ?history of UTIs Blood cultures drawn Procalcitonin WNL Rocephin 2000 mg given in the ED Most recent urine culture grew Pseudomonas on 02/28/2024 Will switch to cefepime 2000 mg IV q12h Continue azithromycin 500 mg IV q24h empirically (4) Dementia: Plan: Poor historian at baseline Daughter is currently in palliative/hospice care discussions Palliative care consult appreciated (5) Hypotension: Plan: / in the ED Hold the evening doses of amlodipine and carvedilol, and reassess a.m. BP (6) History of TIA (transient ischemic attack): Plan: Recent ischemic stroke Will hold a.m. ASA + Plavix and reassess a.m. Hgb (7) History of stroke: Plan: Recent ischemic stroke in March 2024 Brain MRI 03/17/24 revealed "multiple small to tiny foci of acute ischemic injuries within the right temporal, occipital, parietal and frontal lobes concerning for embolic phenomena." Will plan to hold a.m. doses of aspirin and Plavix given low hemoglobin level and possible GI bleed; reassess once hemoglobin stabilizes Plan Disposition: Admit to PCU telemetry DNR/DNI Thickened liquid diet (with aspiration precautions and elevated HOB) VTE PPx: Teds History of Present Illness Chief Complaint: Abnormal Labs/Diagnostic Testing Primary Care Provider: GAYLA Cesar Kathy is an 89-year-old female with PMH of MGUS, anxiety, recurrent falls, GERD, dysphagia, dementia, orthostatic hypotension, UTI, CVA/TIA, and FTT. She presented via EMS on 05/01 from [facility] after she had blood work drawn that showed hemoglobin trending downwards. Patient is a poor historian at baseline due to her underlying dementia. Patient's daughter (Sridevi) is at bedside and provides history. She does report that she came in for low hemoglobin levels. History of 1 recent blood transfusion approximately 3 weeks ago. This was in the setting of multiple surgeries (she had a hip replaced and had a cyst on her ureter removed), as well as having a carotid artery stent placed in her right ICA. During this time, she also had multiple UTIs. No history of GI bleeds to her knowledge. The patient is unsure if she has had any melena or sybil blood in her urine/stool. Patient's daughter is unsure if she has ever had a colonoscopy in the past. No sick contacts. Patient does have a chronic cough. Patient is mildly hypotensive at 96/52 at time of admission; vitals otherwise stable. ED course: NSS 1500 mL IV Rocephin 2000 mg IV Azithromycin 500 mg IV Unable to obtain ROS. Allergies Allergy/AdvReac Type Severity Reaction Status Date / Time Sulfa (Sulfonamide Allergy Intermediate Rash Verified 04/29/24 13:02 Antibiotics) adhesive Allergy Mild rash Verified 04/29/24 13:02 enalaprilat [From Vasotec] Allergy Unknown Unknown Verified 04/29/24 13:02 atorvastatin AdvReac Severe Unconscious Verified 04/29/24 13:02 Home Medications Medication Instructions Recorded Confirmed Type acetaminophen 500 mg tablet 1,000 mg PO HS 02/03/24 04/29/24 History (Tylenol Extra Strength) amlodipine 5 mg tablet 5 mg PO BID 02/03/24 04/29/24 History carvedilol 6.25 mg tablet 6.25 mg PO BID 02/03/24 04/29/24 History cholecalciferol (vitamin D3) 50 50 mcg PO QAM 02/03/24 04/29/24 History mcg (2,000 unit) capsule (Vitamin D3) cyclosporine 0.05 % eye drops in a 1 drp OPB BID 02/03/24 04/29/24 History dropperette duloxetine 20 mg capsule,delayed 20 mg PO QAM 02/03/24 04/29/24 History release famotidine 20 mg tablet 20 mg PO BID 02/03/24 04/29/24 History fluorometholone 0.1 % eye 1 drp OPB QID 02/03/24 04/29/24 History drops,suspension furosemide 20 mg tablet 20 mg PO QAM 02/03/24 04/29/24 History levothyroxine 125 mcg tablet 125 mcg PO QAM 02/03/24 04/29/24 History melatonin 5 mg tablet 5 mg PO HS 02/03/24 04/29/24 History risperidone 0.5 mg tablet 0.5 mg PO HS 02/03/24 04/29/24 History vit C 250 mg-vit E 90 mg-zinc 40 1 tab PO BID 02/03/24 04/29/24 History mg-copper 1 iy-dknohl-ekngbh capsule (PreserVision AREDS-2) acetaminophen 325 mg tablet 650 mg PO Q6 PRN Fever Or Pain 02/28/24 04/29/24 History multivitamin 1 tab PO QAM 02/28/24 04/29/24 History omega 5-rrh-lxk-fish oil 1,200 mg 1 cap PO QAM 02/28/24 04/29/24 History (144 mg-216 mg) capsule (Fish Oil) rosuvastatin 20 mg tablet 20 mg PO HS 02/28/24 04/29/24 History buspirone 10 mg tablet 10 mg PO TID 03/06/24 04/29/24 History sodium chloride 1,000 mg soluble 1,000 mg PO DAILY 03/06/24 04/29/24 History tablet peg 400 0.4 %-propylene glycol 1 drp OPB QID 03/11/24 04/29/24 History (PF) 0.3 % eye drops (Systane Ultra (PF)) aspirin 81 mg tablet,delayed 81 mg PO QAM 60 days #60 tabs 03/21/24 04/29/24 Rx release bisacodyl 10 mg rectal suppository 10 mg RI DAILY PRN Constipation 03/25/24 04/29/24 History (Dulcolax (bisacodyl)) docusate sodium 100 mg capsule 100 mg PO DAILY PRN Constipation 03/25/24 04/29/24 History (Colace) ticagrelor 90 mg tablet (Brilinta) 90 mg PO BID on DAPT - Aspirin 03/26/24 04/29/24 History 81mg + Ticagrelor 90mg BID Past Med/Surg History Problem List (Updated 05/01/24 @ 19:26 by Lee Blair PA-C) History of stroke Hypotension Leukocytosis Hypocalcemia Dysuria Failure to thrive History of hemiarthroplasty of left hip (03/12/24) due to fall CVA (cerebral vascular accident) 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 History of TIA (transient ischemic attack) Acute hypokalemia 03/12/24 Chronic hyponatremia Delirium Acute hyponatremia (Acute) 03/11/24 Elevated lactic acid level (Acute) 03/11/24 Closed fracture of right pelvis (Acute 03/11/24) Small nondisplaced right sacral ala fracture Closed fracture of neck of left femur (Acute 03/11/24) Displaced subcapital left femoral neck fracture from a fall Fall from standing (Acute) Combative behavior (Acute) Headache (Acute) Sundowning Dementia Acute respiratory failure with hypoxia 01/20/24 Aspiration into airway Acute UTI (Acute) 01/18/24 PATRICIA (acute kidney injury) (Acute) 01/18/24 Sepsis 01/18/24 UTI (urinary tract infection), uncomplicated 01/16/24 Anxiety Forgetfulness Orthostatic hypotension dysautonomic syndrome Diarrhea Hyponatremia (Acute) Anemia Urinary incontinence Ambulatory dysfunction Hearing loss (Acute) General weakness Weight loss Poor balance Poor eyesight Right shoulder pain Tinea corporis 02/23/21 GERD (gastroesophageal reflux disease) Pessary maintenance Dysphagia Peripheral edema Rectocele Insomnia Cystocele Recurrent falls Situational anxiety Pulmonary nodule (Chronic) Monoclonal gammopathy of undetermined significance (Chronic) Medical History MGUS (monoclonal gammopathy of unknown significance) Hx: UTI (urinary tract infection) Gutierrez catheter in place Right carotid artery occlusion Recurrent falls Anxiety Hx of colonic polyps Ischemic stroke (02/2024) Closed pelvic fracture (~03/11/24) small nondisplaced right sacral ala fracture- due to fall Closed fracture of neck of left femur (~03/11/24) displaced subcapital left femoral neck fracture -due to fall - surgery 03/12/24 Localized edema Localized enlarged lymph nodes Nonrheumatic aortic (valve) stenosis Hypertensive chronic kidney disease with stage 1 through stage 4 chronic kidney disease, or unspecified chronic kidney disease Urinary retention Delirium due to known physiological condition Transient ischemic attack (TIA) Anemia Hypertension Hypothyroidism Sjogren's syndrome Hypertensive urgency Constipation Dermatitis Neuropathy Cervical muscle strain Peripheral edema Insomnia Sensorineural hearing loss (SNHL) of both ears Memory changes Aortic valve sclerosis Cervical lymphadenopathy Chronic hoarseness Mixed hyperlipidemia Osteoporosis Unsteady gait Vocal cord paralysis Trigeminal neuralgia right Spinal stenosis Osteoarthritis IBS (irritable bowel syndrome) GERD (gastroesophageal reflux disease) Macular degeneration Claustrophobia Cardiac murmur Hyperlipidemia Surgical History History of transurethral resection of bladder tumor (TURBT) (03/06/24) Hx of colonoscopy with polypectomy Hx of arthroscopy of shoulder 2019, left History of lumpectomy History of hysterectomy History of bladder surgery BLADDER TACK History of total abdominal hysterectomy and bilateral salpingo-oophorectomy History of throat surgery THURNWALDT CYST BENIGN History of tooth extraction History of tonsillectomy History of adenoidectomy Family History Son Family history of diabetes mellitus Father Cancer Sister Cancer Breast cancer Heart disease H/O heart artery stent Mother Myocardial infarction Grandmother AAA (abdominal aortic aneurysm) Myocardial infarction Denies family history of Ovarian cancer Prostate cancer Colorectal cancer Social History Smoking Status: Never smoker Preferred Language: Chinese Communication Ability: Effective Communication Ability Comment: unk Visual Impairment: Limited Hearing Ability: Use of Hearing Aid Health And Fitness Professor Required: No Beliefs That Will Affect Care: Taoism marital status: / Current Living Situation: Personal Care Facility Current Living Situation Comment: [facility] current occupational status: retired How many Children do You have: 3 Feels Safe at Home: Yes Childhood Exposure to Second-Hand Smoke: No Diet: Soft caffeine: Yes during the past year weight has: remained stable Dental Care, Regularly: No Physical Activity Frequency: Does not Exercise Seatbelt Use: always Sunscreen Use: Yes Assistive Devices: Wheelchair Review of Systems Review of Systems: See HPI above Physical Exam Physical Exam: General: Lethargic; frail-appearing; non-toxic appearing; daughter at bedside; SpO2 100% on RA HEENT: normocephalic, atraumatic; no scleral icterus; PERRLA; hard of hearing; dry mucous membrane Neck: supple; no lymphadenopathy; trachea midline Skin: warm, dry without signs of tenting; no cyanosis; no rashes, bruising, lesions, or erythema appreciated on the abdomen, flanks, or back CV: chest wall NTP; RR, tachycardic around 102 bpm; S1/S2 normal; possible 1/6 ejection murmur auscultated at the second ICS MCL; pulses intact and symmetric at radial, DP, and PT Lungs: Chronic cough; no acute respiratory distress; symmetrical chest wall expansion; clear breath sounds across all lung fuller w/o adventitious sounds; no wheezing ABD: Soft, NTP; BS present; no rebound/guarding; no distention MSK: no tics or fasciculations; no edema noted in the LEs b/l, nonerythematous Neuro: Patient is not alert and oriented to month, location, purpose in the hospital; incoherent thought processes; no focal deficits appreciated; patient reports that sensation is diminished in the left lower extremity when compared to the right sensation grossly intact in the LEs b/l Results & Data Results & Data Vital Signs (Past 12 Hours) Vital Signs Pulse Pulse Resp BP BP Pulse Ox O2 Del Method 05/01/24 15:58 86 18 100 Room Air 05/01/24 15:45 86 18 96/52 L 100 Room Air 05/01/24 15:34 86 05/01/24 15:25 86 18 96/52 L Room Air Laboratory Results Abnormal lab results 05/01/24 05/01/24 Range/Units 15:45 15:51 WBC 15.72 H (4.8-10.8) K/ul RBC 1.80 L (4.20-5.40) M/uL Hgb 5.2 L* (12.0-16.0) g/dl Hct 15.8 L* (37.0-47.0) % RDW Std Deviation 53.0 H (36.4-46.3) fL RDW Coeff of Neto 17.2 H (11.5-14.5) % Neut # (Auto) 12.67 H (1.40-6.50) K/uL [place] # (Auto) 1.26 H (0.11-0.59) K/uL PT 13.5 H (9.0-12.0) Seconds INR 1.3 H (0.9-1.1) APTT 33 H (21-31) Seconds Chloride 109 H (98-107) mmol/L Carbon Dioxide 19 L (21-32) mmol/L BUN 66 H (6-23) mg/dl Creatinine 4.30 H (0.6-1.2) mg/dl Calcium 8.0 L (8.6-10.3) mg/dl Albumin 2.5 L (3.4-5.0) gm/dl Albumin/Globulin Ratio 0.6 L (0.9-2) Crossmatch See Detail Diagnostic Findings Chest X-Ray 05/01/24 15:34 XR chest 1V portable CLINICAL HISTORY: cough, fever TECHNIQUE: Single frontal radiograph of the chest was obtained. Comparison: Comparison is made to chest radiograph 03/11/2024 FINDINGS: No lines and tubes are seen. Calcified aortic knob is seen. The lungs are clear. No evidence of pleural effusion or pneumothorax. IMPRESSION: No acute abnormalities and in particular no radiographic evidence of pneumonia. ACT 112: Negative or not required by law. Electronically signed by: Christopher Oconnell M.D. 05/01/2024 4:10 PM ECG Additional Comments: ECG revealed sinus rhythm with occasional PVCs at 85 bpm; QTc 456 Code Status & VTE Plan Code Status DNR/DNI (discussed with patient's daughter/POA at the bedside) VTE Prophylaxis Plan VTE Prophylaxis will be ordered: Yes Supervising Physician Co-Signing Physician Notes Patient seen and examined, chart reviewed, case discussed with Lee Blair PA-C and I agree with the assessment and plan as above except as otherwise noted Labs and images reviewed 89-year-old female. Presents with severe anemia 5.2. She was tachycardic and hypotensive this resolved with fluids. Iron studies pending. No known history of bleeding, no history of GI bleeds although patient is unreliable historian. Has required 1 prior blood transfusion 3 weeks ago. She is not elevated BUN in the setting of ARF, no epigastric pain. Given unreliable historian, and elevated BUN will empirically cover with Protonix bolus and twice daily push although has not had melena or other signs of upper GI bleed. Has had recent surgeries which may have contributed. No nosebleeds. Hemoccult pending although sensitivity and reliably validity of this is low. Monitor all stools for evidence of bleeding. Will follow hemoglobin trend. 2 units ordered for transfusion given hemoglobin of 5.2 and concurrent renal failure. No known history of CHF. Will follow clinically no signs of pulmonary congestion or fluid overload, appears profoundly volume contracted on admission in addition to anemic. Empirically covered for leukocytosis and ill appearance with recent pseudomonal urine culture 02/2024 with cefepime/azithromycin. Cultures are pending. Follow fever curve. History is limited from patient at bedside. Abdomen is soft and without rigidity/guarding. Does have left posterior scapular hematoma. No flank hematomas are seen. Patient has had multiple unwitnessed falls in the last week. She is with chronic memory decline at baseline has been more somnolent than his typical. No neck pain at bedside assessment. Given sudden drop of hemoglobin from 9.8-5.2 and multiple falls obtain CT to evaluate for solid organ injury/RP bleed. No thigh contusion noted at bedside. Right TCAR site is intact without evidence of underlying hematoma/swelling. Discussed with patient's daughter at bedside, her and her brother have been considering palliative care and hospice due to chronic decline. Given complicated course with multiple recent surgeries including R TCAR and slow progressive decline pt and family and considering transition to palliative care vs hospice. They would like to have CT scans to evaluate for any potential bleeding or injury however note that even if there was a large bleed they would not want transfer or aggressive surgical interventions at this time but may consider comfort measures. Otherwise they are considering hospice and would like to discuss this with palliative care provider grahamorrow and continue current treatments. They note that Kathy has had a challenging course and would likely want to focus on quality of life and do not want progression to any invasive measures at this time. Do want to continue blood and current treatments as ordered. Confirm DNR/DNI. Agree with above. PG Care Time/CCT Total # of Minutes Spent Total Time Spent with Patient: Total time spent is greater than 50% in coordination of care (as documented) at patient's floor/unit and/or counseling patient: C[place] [address] INT INP/OBS CARE 75MIN Patient Type Established Medical Decision Making High Complexity Diagnoses Anemia D64.9 PATRICIA (acute kidney injury) N17.9 Leukocytosis D72.829 Dementia with agitation, unspecified dementia severity, unspecified dementia type F03.911 Dementia behavioral or psychological symptom: with agitation Dementia severity: unspecified severity Dementia type: unspecified type Hypotension I95.9 History of TIA (transient ischemic attack) Z86.73 History of stroke Z86.73 (4) Dementia Dementia behavioral or psychological symptom: with agitation Dementia severity: unspecified severity Dementia type: unspecified type Qualified Code(s): F03.911 - Unspecified dementia, unspecified severity, with agitation
[2024-05-01] MEDS: SODIUM CHLORIDE 0.9% 1,000 ML IV ONE (17:48)
[2024-05-01] MEDS: AZITHROMYCIN 500 MG in DEXTROSE 5% 250 ML IV STA (18:12)
[2024-05-01] MEDS ORDERED: CEFEPIME 2000MG 2,000 MG/20 ML SYR IV SCH (19:15)
[2024-05-01 19:25] LABS: Ferritin 428.5 ng/ml (8-388)
[2024-05-01] MEDS: CEFEPIME 1000MG 1,000 MG/10 ML SYR IV SCH (19:42)
[2024-05-01] MEDS: PANTOprazole 80 MG in DEXTROSE 5% 100 ML IV STA (19:47)
--- NOTE | 2024-05-01 21:23 | Electrocardiogram Report ---
Test Reason : Blood Pressure : */* mmHG Vent. Rate : 85 BPM Atrial Rate : 85 BPM P-R Int : 152 ms QRS Dur : 122 ms QT Int : 384 ms P-R-T Axes : 71 55 53 degrees QTcB Int : 456 ms Sinus rhythm with occasional Premature ventricular complexes Right bundle branch block Abnormal ECG When compared with ECG of 11-Mar-2024 17:15, Premature ventricular complexes are now Present Premature supraventricular complexes are no longer Present Confirmed by Trent Fontanez ([id number]) on 05/01/2024 9:22:47 PM Referred By: Confirmed By: Trent Fontanez
[2024-05-01] MEDS ORDERED: bisacodyL 10 MG SUPP PR PRN (22:56)
[2024-05-01] MEDS ORDERED: ONDANSETRON INJ 2 MG/ML 2 ML VIAL IV PRN (22:56)
[2024-05-02] MEDS: busPIRone 5 MG TAB PO SCH (00:12)
[2024-05-02 00:55] LABS: Hematocrit (blood only) 21.1 % (37.0-47.0); Hemoglobin 7.1 g/dl (12.0-16.0)
--- NOTE | 2024-05-02 01:19 | CT Scan Report ---
Exam(s): CT ABDOMEN + PELVIS Without Contrast EXAM: CT Abdomen and Pelvis Without Intravenous Contrast CLINICAL HISTORY: Reason for exam: unwitness fall, eval solid organ injury/rp bleed. TECHNIQUE: Axial computed tomography images of the abdomen and pelvis without intravenous contrast. CTDI is 9.83 mGy and DLP is 460.16 mGy-cm. Automated exposure control was utilized for the study. A dose lowering technique was utilized adhering to the principles of ALARA. COMPARISON: No relevant prior studies available. FINDINGS: Lung bases: Airspace consolidation at the RIGHT lung base, concerning for pneumonia. ABDOMEN: Liver: Unremarkable. Gallbladder and bile ducts: Unremarkable. No calcified stones. No ductal dilation. Pancreas: Unremarkable. No ductal dilation. Spleen: Unremarkable. No splenomegaly. Adrenals: Unremarkable. No mass. Kidneys and ureters: Unremarkable. No obstructing stones. No hydronephrosis. Stomach and bowel: Mild fecal retention, correlate for constipation. Diverticulosis, without acute diverticulitis. No small bowel obstruction. No free intraperitoneal air. PELVIS: Appendix: No findings to suggest acute appendicitis. Bladder: Unremarkable. No stones. Reproductive: Pessary in the pelvis. ABDOMEN and PELVIS: Intraperitoneal space: Unremarkable. No free air. No significant fluid collection. Bones/joints: Degenerative changes of the spine. LEFT hip arthroplasty. No acute fracture. No dislocation. Soft tissues: Unremarkable. Vasculature: Atherosclerotic changes of the aorta. No abdominal aortic aneurysm. Lymph nodes: Unremarkable. No enlarged lymph nodes. IMPRESSION: 1. Airspace consolidation at the RIGHT lung base, concerning for pneumonia. 2. Mild fecal retention, correlate for constipation. 3. LEFT hip arthroplasty. 4. Diverticulosis, without acute diverticulitis. No small bowel obstruction. No free intraperitoneal air. 5. No retroperitoneal bleed. Electronically signed by: Sen Johns MD 05/02/24 01:18 AM
--- NOTE | 2024-05-02 01:41 | CT Scan Report ---
Exam(s): CT HEAD Without Contrast EXAM: CT Head Without Intravenous Contrast CLINICAL HISTORY: Reason for exam: unwitnessed fall. TECHNIQUE: Axial computed tomography images of the head/brain without intravenous contrast. CTDI is 28.9 mGy and DLP is 546.36 mGy-cm. Automated exposure control was utilized for the study. A dose lowering technique was utilized adhering to the principles of ALARA. COMPARISON: Prior brain MRI from March 17, 2024. FINDINGS: This study is limited secondary to motion artifact. Brain: There is a remote ischemic injury of the right temporal and occipital lobes. No hemorrhage. Mild nonspecific white matter changes. No edema. Ventricles: Mild ventriculomegaly. Bones/joints: Unremarkable. No acute fracture. Soft tissues: Unremarkable. Sinuses: Unremarkable as visualized. No acute sinusitis. Mastoid air cells: Unremarkable as visualized. No mastoid effusion. IMPRESSION: No evidence of acute intracranial pathology. Electronically signed by: Rosana Vo MD 05/02/24 01:40 AM
[2024-05-02 03:29] LABS: Basophils # (auto) 0.03 K/uL (0.00-0.20); Basophils % (auto) 0.2 %; Eosinophils # (auto) 0.17 K/uL (0.00-0.50); Hematocrit (blood only) 28.2 % (37.0-47.0); Hemoglobin 9.6 g/dl (12.0-16.0); Immature Granulocytes # (auto) 0.13 K/uL (0.01-0.20); Immature Granulocytes % (auto) 0.7 %; Lymphocytes # (auto) 1.91 K/uL (1.20-3.40); Mean Corpuscular Hemoglobin 29.6 pg (25.0-34.0); Mean Platelet Volume 10.3 fL (9.4-12.4); Monocytes # (auto) 1.61 K/uL (0.11-0.59); Monocytes % (auto) 9.3 %; Neutrophils # (auto) 13.54 K/uL (1.40-6.50); Neutrophils % (auto) 77.8 %; Platelet Count 214 K/uL (130-400); RDW Coefficient of Variation 15.4 % (11.5-14.5); RDW Standard Deviation 48.1 fL (36.4-46.3); Red Blood Count 3.24 M/uL (4.20-5.40); White Blood Count 17.39 K/ul (4.8-10.8)
[2024-05-02 03:48] LABS: BUN Creatinine Ratio 16.8 (10-20); Calcium 7.6 mg/dl (8.6-10.3); Creatinine Clr Calc Pharmacy 7.5 ml/min; Magnesium 1.3 mg/dl (1.7-2.4); Potassium 3.7 mmol/L (3.5-5.1)
[2024-05-02] MEDS: MAGNESIUM SULFATE / D5W 1 GM/100 ML BAG IV SCH (06:45)
[2024-05-02 07:21] VITALS: RESP 20
--- OUTSIDE RECORDS SUMMARY | 2024-05-02 07:50 | External Medical Summary ---
Author Name Unknown Address Unknown Organization K09:[facility] [place] [address] Laboratory Report Ordering Provider Test Date Status ADY KAUFFMAN 05/01/2024 13:32:41 Final Observation Date Value Abnormality Reference (Units ) Status WBC, Total 05/01/2024 13:32:41 16.62 Above high normal 4.00-10.80 (K/uL) Final RBC 05/01/2024 13:32:41 2.04 3.85-5.15 (M/uL) Final Hemoglobin 05/01/2024 13:32:41 6.0 Below lower panic limits 12.0-15.3 (g/dL) Final Results rechecked.
null HCT 05/01/2024 13:32:41 18.2 Below low normal 36. 0-45.2 (%) Final Results rechecked.
null MCV 05/01/2024 13:32:41 89.2 81.5-97.5 (fL) Final MCH 05/01/2024 13:32:41 29.4 27.0-34.0 (pg) Final MCHC 05/01/2024 13:32:41 33.0 32.0-36.0 (g/dL) Final RDW 05/01/2024 13:32:41 17.0 11.5-15.5 (%) Final Platelets 05/01/2024 13:32:41 290 140-400 (K /uL) Final MPV 05/01/2024 13:32:41 10.2 6.6-11.1 ( fL) Final Performing Location [facility] [place] [address]
--- OUTSIDE RECORDS SUMMARY | 2024-05-02 07:50 | External Medical Summary ---
Author Name Unknown Address Unknown Organization K09:[facility] [address] [place] [address] Laboratory Report Ordering Provider Test Date Status ADY KAUFFMAN 05/01/2024 13:32:41 Final Observation Date Value Abnormality Reference (Units ) Status BUN 05/01/2024 13:32:41 65 Above high normal 6-20 (mg/dL) Final Creatinine 05/01/2024 13:32:41 4.1 Above high normal 0.5-1.0 (mg/dL) Final Glomerular filtration rate/1.73 sq M.predicted [Volume Rate/Area] in Serum, Plasma or Blood by Creatinine-based formula (CKD-EPI) 05/01/2024 13:32:41 10 Below low normal >=60 (mL/min) Final eGFR is calculated based on the CKD-EPI 2020 equation. Sodium 05/01/2024 13:32:41 140 135-146 (m mol/L) Final Potassium 05/01/2024 13:32:41 3.8 3.5-5.1 (m mol/L) Final Cl 05/01/2024 13:32:41 107 98-107 (mm ol/L) Final CO2 05/01/2024 13:32:41 17 Below low normal 22- 32 (mmol/L) Final Anion gap 05/01/2024 13:32:41 16 Above high normal 7- 15 (mmol/L) Final Glucose 05/01/2024 13:32:41 64 Below low normal 70- 120 (mg/dL) Final Albumin 05/01/2024 13:32:41 2.5 Below low normal 3.8 -5.0 (g/dL) Final AST (Aspartate aminotransferase) 05/01/2024 13:32:41 25 10-35 (U/L) Fin al Alk Phos 05/01/2024 13:32:41 129 35-130 (U/ L) Final Bilirubin, Total 05/01/2024 13:32:41 0.2 <=1 .2 (mg/dL) Final Calcium 05/01/2024 13:32:41 8.1 Below low normal 8.4 -10.2 (mg/dL) Final Protein 05/01/2024 13:32:41 6.1 6.0-8.3 (g /dL) Final ALT (Alanine aminotransferase) 05/01/2024 13:32:41 16 10-35 (U/L) Mirza pollock Performing Location [facility] [address] [place] [address]
--- OUTSIDE RECORDS SUMMARY | 2024-05-02 07:50 | External Medical Summary ---
Author Name Unknown Address Unknown Organization K09:[facility] [place] [address] Laboratory Report Ordering Provider Test Date Status ADY KAUFFMAN 05/01/2024 13:32:41 Final Observation Date Value Abnormality Reference (Units ) Status SYNC LEUKOCYTES IN BLOOD BY AUTOMATED COUNT 05/01/2024 13:32:41 16.62 Above high normal 4.00-10.80 (K/uL) Final Neutrophils/100 leukocytes in Blood by Manual count 05/01/2024 13:32:41 83.8 Above high normal 40.0-75.0 (%) Final Lymphocytes/100 leukocytes in Blood by Manual count 05/01/2024 13:32:41 8.1 Below low normal 18.0-42.0 (%) Final Monocytes/100 leukocytes in Blood by Manual count 05/01/2024 13:32:41 8.1 1.0-11.0 (%) Final Neutrophils [#/volume] in Blood by Manual count 05/01/2024 13:32:41 13.93 Above high normal 1.80-7.70 (K/uL) Final Lymphocytes [#/volume] in Blood by Manual count 05/01/2024 13:32:41 1.34 1.00-4.80 (K/uL) Final Monocytes [#/volume] in Blood by Manual count 05/01/2024 13:32:41 1.34 Above high normal 0.00-1.10 (K/uL) Final Nucleated erythrocytes/100 leukocytes [Ratio] in Blood by Automated count 05/01/2024 13:32:41 1 Above high normal <=0 (/100 WBCs) Final Performing Location [facility] [address] [place] [address]
--- OUTSIDE RECORDS SUMMARY | 2024-05-02 07:50 | External Medical Summary | Summary of Care ---
Author Name Unknown Organization [facility] Address [address] [place] [address] Phone [phone] Care Team Providers Care Major Gifts Director Name Role Phone Deepti Francois Primary Care Provide r Reason for Visit * Reason Onset Date Comments Skilled Visit 04/29/2024 Encounter Details Date Type Department Care Team (Late st Contact Info) Description 04/29/2024 9:00 AM EDT Halfway Visit [address] [place] [address] Suki Rodriguez PA-C [address] [place] [address] [place] [address] Lethargy*; Hypotension due to drugs; PATRICIA (acute kidney injury) (HCC) Allergies Active Allergy Reactions Criticality Noted Date Comments Atorvastatin Itching 11/19/2020 Enalapril 04/19/2023 Sulfa Antibiotics 03/15/2007 documented as of this encounter (statuses as of 04/29/2024) Medications Medication Sig Dispensed Refills Start Date [...] in the morning. with food.. 03/21/2024 Active [place]-3 Fish Oil 1200 MG Oral Capsule Take [...] as of this encounter (statuses as of 04/29/2024) Active Problems Problem Noted Date Diagnosed Date Internal carotid artery stent present 04/02/2024 Sjogren syndrome with keratoconjunctivitis 03/21 S/p left [...] as of this encounter (statuses as of 04/29/2024) Resolved Problems Problem Noted Date Diagnosed Date Resolved Date Unspecified dementia, mild, with anxiety 03/21/2024 03/21/2024 Chronic pharyngitis 03/21/20 Dyspnea and respiratory abnormality 03/21/2024 Overview: ICD-10 update of inactive term documented as of this encounter (statuses as of 04/29/2024) Immunizations Name Administration Dates Next Due COVID-19 mRNA, LNP-s, No Pre serve, 2-Dose Series ([employer]) 09/15/2020,08/18/2020 documented as of this encounter Social [...] Sign Reading Time Taken Comments Blood Pressure 100/42 04/29/2024 5:16 PM EDT Pulse 70 04/29/2024 5:16 PM EDT Temperature 36.3 C (97.3 F) 04/29/2024 5:16 PM ED T Respiratory Rate 18 04/29/2024 5:16 PM EDT Oxygen Saturation 97% 04/29/2024 5:16 PM EDT room air Inhaled Oxygen Concentration - - Weight - - Height - - Body Mass Index - - documented in this encounter Progress Notes * Suki Rodriguez PA-C - 04/29/2024 9:00 AM EDT Name: Kathy Aragon Date of : 1935 This note pertains to care provided at [facility]. Please see facility record for original note. This note is not to be edited or addended in [employer]. Editing or addending needs to occur in the facility's medical record. Chief Complaint Patient presents with Skilled Visit TRANSITION EVENT: Type: Skilled visit Date: April 29 Code Status: No Code SUBJECTIVE: Kathy Aragon is a 89 year old female HPI: short-term rehab pt seen today in follow up. Improved creatinine today. Lethargy ongoing, waxes and wanes. Low BP today. Current antihypertensive meds include amlodipine 5 mg twice daily and carvedilol 6.25 mg twice daily. She cannot provide any reliable history today due to lethargy. PMH: Patient Active Problem List Diagnosis HTN, goal below 140/90 ADVANCE DIRECTIVE INFORMATION Reflux esophagitis Sjogren syndrome with keratoconjunctivitis ([facility]) S/p left hip fracture History of TIA (transient ischemic attack) Right carotid artery occlusion Acquired hypothyroidism Dyslipidemia, goal LDL below 70 SIADH (syndrome of inappropriate ADH production) ([facility]) Dementia with psychosis ([facility]) Gutierrez catheter in place Left hemiparesis ([facility]) History of CVA (cerebrovascular accident) S/P urethral surgery Depression with anxiety Sensorineural hearing loss (SNHL) of both ears Internal carotid artery stent present Review of patient's allergies indicates: Allergen Reactions Atorvastatin Itching Enalapril Sulfa Antibiotics Medications: Pt's current medication list is maintained at [facility] and was reviewed at this visit. Review of Systems: Per HPI OBJECTIVE: BP 100/42 | Pulse 70 | Temp 36.3 C (97.3 F) | Resp 18 | SpO2 97% Comment: room air General: no distress and fatigued, wakes very briefly during visit, remains nonverbal Heart: regular rate & rhythm Lungs: chest symmetric with normal AP diameter, no chest deformities noted, no chest wall tenderness, lungs clear to auscultation Abdomen: abdomen soft, non-tender, normal bowel sounds, no masses or organomegaly, and no rebound or guarding Extremities: less than 2 second capillary refill, no joint deformities, effusion, or inflammation, trace BLE edema at ankles, no apparent calf tenderness Neuro Exam: lethargic Results for orders placed or performed in visit on 04/29/24 BASIC METABOLIC PANEL Result Value Ref Range BUN 41 (H) 6 - 20 mg/dL CREATININE 2.1 (H) 0.5 - 1.0 mg/dL EGFR 22 (L) >=60 mL/min SODIUM 139 135 - 146 mmol/L POTASSIUM 4.0 3.5 - 5.1 mmol/L CHLORIDE 107 98 - 107 mmol/L CO2 21 (L) 22 - 32 mmol/L ANION GAP 11 7 - 15 mmol/L GLUCOSE 103 70 - 120 mg/dL CALCIUM 8.7 8.4 - 10.2 mg/dL ASSESSMENT/PLAN: snf chart (outside system) reviewed for vital signs, nursing notes, CODE STATUS, and most up to date medication list Discussed management with other clinician during the visit (facility RN) Assessment required independent historian that was not the patient due to cognitive limitations Lethargy (Primary) Suspect lethargy multifactorial Hypotension due to drugs Reduce amlodipine to 5 mg once daily PATRICIA (acute kidney injury) (HCC) Renal function improved Encourage oral fluids Follow up: tomorrow and as needed I spent a total of 32 minutes coordinating, documenting, and providing care for this patient excluding time spent in the performance of separately billed services or time spent by another provider/QHP. documented in this encounter Plan of Treatment Health Maintenance Due Date Last Done Comments Depression Monitoring 1947 Albumin/Creatinine Ratio 1953 DXA Scan 08/08/2013 08/08/2006, 07/12, 08/05/2004 COVID-19 Vaccine ( season) 2024 04/25/2023, 04/20/2022, 04/21/2021, Additional history exists Influenza Vaccine (FLU shot) (#1) 2024 03/27/2020, 05/09/2019, 05/09/2019, Additional history exists TSH 01/24/2025 01/25/2024, 06/0 12/2023, 09/07/2023, Additional history exists DTap/Tdap Vaccines (3 [...] as of this encounter Visit Diagnoses Diagnosis Lethargy- Primary Other malaise and fatigue Hypotension due to drugs Other iatrogenic hypotension PATRICIA (acute kidney injury) (HCC) Acute kidney failure, unspecified documented in this encounter Additional Health Concerns Infection Onset Date Last Indicated Resolved Time 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
--- NOTE | 2024-05-02 08:06 | Hospitalist Progress Note ---
Date of Service May 02, 2024 Assessment & Plan (1) Need for comfort care: Plan: Pt with multiple recent medical issues family after discussion will proceed to comfort care measures, will work with case management family may want to have return to [facility] stopping antibiotics (2) Anemia: Plan: Patient sent in [facility] on 05[facility]01 for Hemoglobin 5.2 on arrival Hx of blood transfusion 3 weeks ago in the setting of multiple surgeries (hip replacement, carotid artery stent, urethral cyst removal) 2U PRBC-> with overcorrection to 9.6 with 2 units last echocardiogram on 04/02 revealed LVEF at 60 to 65% Recent vitamin B12 and folate levels in January 2024 were both high Fecal occult blood ordered, pending Iron panel, iron and tibc low, ferritin high Protonix 40 mg IV daily (3) PATRICIA (acute kidney injury): Plan: h/o ckd 3 slight improvement with transfusion (4) Leukocytosis: Plan: Leukocytosis at 15.72 with a neutrophil predominance lower blood pressure concern for sepsis poa from pneumonia RLL pneumonia seen on imaging, concern for gram negative or aspiration pneumonia Blood cultures drawn Procalcitonin WNL antibiotics stopped after palliative eval (5) Dementia: Plan: Poor historian at baseline Daughter is currently in palliative/hospice care discussions Palliative care consult appreciated (6) History of stroke: Plan: Recent ischemic stroke in March 2024 Brain MRI 03/17/24 revealed "multiple small to tiny foci of acute ischemic injuries within the right temporal, occipital, parietal and frontal lobes concerning for embolic phenomena." hold aspirin and Plavix given aspiration risk Plan DNR/DNI/COCOA ROASTER Thickened liquid diet (with aspiration precautions and elevated HOB) Admission and Anticipated Discharge Date Admission Date: May 01, 2024 Subjective pt is very lethargic, coughing, did not do well with speech eval daughter at the bedside, discussed hospice care and will proceed to comfort measures Physical Exam Physical Exam: cough and decreased breath sounds and rhonchi at right base cardiac is regular dileep. pt very COWLIT[place] Results & Data Results & Data Vital Signs (Past 12 Hours) Vital Signs Temp Pulse Pulse Resp BP BP Pulse Ox 05/02/24 07:20 97.2 F L 112 H 20 147/83 H 96 05/02/24 03:18 97.9 F 104 H 19 151/83 H 99 05/02/24 02:50 97.9 F 116 H 24 155/89 H 98 05/02/24 02:36 97.9 F 114 H 21 151/71 H 98 05/02/24 01:36 97.2 F L 99 H 20 135/79 05/02/24 01:35 97.3 F L 105 H 20 135/79 97 05/02/24 00:36 97.3 F L 115 H 21 145/81 H 05/02/24 00:06 97.3 F L 110 H 23 133/71 98 05/01/24 23:51 97.3 F L 101 H 21 150/70 H 96 05/01/24 23:33 98.1 F 102 H 18 144/78 H 95 05/01/24 23:09 97.6 F 95 H 20 135/73 95 05/01/24 22:57 97.6 F 83 18 160/67 H 95 05/01/24 22:55 99 H 05/01/24 22:36 05/01/24 22:35 05/01/24 22:05 99.2 F 106 H 18 133/72 100 05/01/24 21:05 98.6 F 112 H 16 102/75 05/01/24 20:05 98.2 F 105 H 16 120/63 98 O2 Del Method 05/02/24 07:20 Room Air 05/02/24 03:18 Room Air 05/02/24 02:50 05/02/24 02:36 05/02/24 01:36 05/02/24 01:35 05/02/24 00:36 05/02/24 00:06 05/01/24 23:51 05/01/24 23:33 05/01/24 23:09 05/01/24 22:57 Room Air 05/01/24 22:55 05/01/24 22:36 Room Air 05/01/24 22:35 Room Air 05/01/24 22:05 05/01/24 21:05 05/01/24 20:05 Laboratory Results reveiw cbc review chemistry PG Care Time/CCT Total # of Minutes Spent Total Time Spent with Patient: Total time spent is greater than 50% in coordination of care (as documented) at patient's floor/unit and/or counseling patient: Coding Level of Care Code 74750 SUB INP/OBS CARE 3/50MIN Diagnoses Need for comfort care Anemia D64.9 PATRICIA (acute kidney injury) N17.9 Leukocytosis D72.829 Dementia with agitation, unspecified dementia severity, unspecified dementia type F03.911 Dementia behavioral or psychological symptom: with agitation Dementia severity: unspecified severity Dementia type: unspecified type History of stroke Z86.73 (5) Dementia Dementia behavioral or psychological symptom: with agitation Dementia severity: unspecified severity Dementia type: unspecified type Qualified Code(s): F03.911 - Unspecified dementia, unspecified severity, with agitation
[2024-05-02] MEDS: AZITHROMYCIN 250 MG TAB PO SCH (08:32)
[2024-05-02] MEDS: PANTOprazole 40 MG/10 ML SYR IV SCH (08:33)
--- OUTSIDE RECORDS SUMMARY | 2024-05-02 10:43 | External Medical Summary | Summary of Care ---
Author Name Unknown Organization [facility] Address [address] [place] [address] Phone [phone] Care Team Providers Care Plant Worker Name Role Phone Deepti Francois Primary Care Provide r Encounter Details Date Type Department Care Team (Late st Contact Info) Description 05/01/2024 Orders Only Lab [facility] [address] [place] [address] Suki Rodriguez PA-C [address] [place] [address] [place] [address] Acute cough*; Fever Allergies Active Allergy Reactions Criticality Noted Date Comments Atorvastatin Itching 11/19/2020 Enalapril 04/19/2023 Sulfa Antibiotics 03/15/2007 documented as of this encounter (statuses as of 05/01/2024) Medications Medication Sig Dispensed Refills Start Date [...] in the morning. with food.. 03/21/2024 Active [place]-3 Fish Oil 1200 MG Oral Capsule Take [...] as of this encounter (statuses as of 05/01/2024) Active Problems Problem Noted Date Diagnosed Date [...] as of this encounter (statuses as of 05/01/2024) Resolved Problems Problem Noted Date Diagnosed Date Resolved Date Unspecified dementia, mild, with anxiety 03/21/2024 03/21/2024 Chronic pharyngitis 03/21/20 Dyspnea and respiratory abnormality 03/21/2024 Overview: ICD-10 update of inactive term documented as of this encounter (statuses as of 05/01/2024) Immunizations Name Administration Dates Next Due COVID-19 mRNA, LNP-s, No Pre serve, 2-Dose Series ([employer]) 09/15/2020,08/18/2020 documented as of this encounter Social [...] money to buy more. Never true 09/01/19 Within the past 12 months, t he [...] on file documented as of this encounter Plan of Treatment Pending Results Name Type Priority Associated Diagnoses Date /Time INFLUENZA A/B RSV SARS-COV2,PCR Lab Routine Fever Acute cough 05/01/2024 1:36 PM EDT Scheduled Orders Name Type Priority Associated Diagnoses Orde r Schedule INFLUENZA A/B RSV SARS-COV2,PCR Lab Routine Fever Acute cough Expected: 05/01/2024, Expires: 05/01/2025 Health Maintenance Due Date Last Done Comments Depression Monitoring 1947 Albumin/Creatinine Ratio 1953 DXA Scan 08/08/2013 08/08/2006, 07/12, 08/05/2004 COVID-19 Vaccine ( season) 2024 04/25/2023, 04/25/2023, 04/20/2022, Additional history exists Influenza Vaccine (FLU shot) [...] as of this encounter Visit Diagnoses Diagnosis Acute cough- Primary Fever Fever, unspecified documented in this encounter Additional Health Concerns Infection Onset Date Last Indicated Resolved Time 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
--- OUTSIDE RECORDS SUMMARY | 2024-05-02 10:43 | External Medical Summary | Summary of Care ---
Author Name Unknown Organization [facility] Address [address] [place] [address] Phone [phone] Care Team Providers Care Sign Board Erector Name Role Phone Deepti Francois Primary Care Provide r Encounter Details Date Type Department Care Team (Late st Contact Info) Description 05/01/2024 Orders Only Lab [facility] [address] [place] [address] Suki Rodriguez PA-C [address] [place] [address] [place] [address] Fever* Allergies Active Allergy Reactions Criticality Noted Date [...] in the morning. with food.. 03/21/2024 Active [place]-3 Fish Oil 1200 MG Oral Capsule Take [...] mRNA, LNP-s, No Pre serve, 2-Dose Series ([employer] 09/15/2020,08/18/2020 documented as of this encounter Social [...] as of this encounter Plan of Treatment Scheduled Orders Name Type Priority Associated Diagnoses Orde r Schedule COMPREHENSIVE METABOLIC PANEL Lab Routine Fever Expected: 05/01/2024, Expires: 05/01/2025 CBC WITH WBC DIFFERENTIAL Lab Routine Fever Expected: 05/01/2024, Expires: 05/01/2025 Health Maintenance Due [...] as of this encounter Visit Diagnoses Diagnosis Fever- Primary Fever, unspecified documented in this encounter Additional Health Concerns Infection Onset Date Last Indicated Resolved Time 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
[2024-05-02 11:39] VITALS: BP 132/71; PULSE 93; O2SAT 97
[2024-05-02] MEDS ORDERED: LORazepam 2 MG/1 ML VIAL IV PRN (14:28)
--- NOTE | 2024-05-02 14:40 | Palliative Care Consultation ---
Date of Consultation May 02, 2024 Assessment & Plan (1) General weakness: (2) Discussion about advance care planning held with family member: Bedside face to face ACP meeting x 25min with dtr pt unable to participate dtr shares pt has been on a steady decline with worsening dementia and aspiration family has been talking about hospice and recently inquired for this at [facility] then she became dehydrated and [facility] sent her here family leaning to comfort, understand disease is terminal and goals are comfort we agreed to [facility] but she wants to talk with her brother before stopping abtx orders written hoping for [facility] dc with hospice (3) Palliative care by specialist: (4) Encounter for hospice care discussion: (5) Need for comfort care: (6) Dementia: Dementia type: unspecified type Dementia severity: unspecified severity Dementia behavioral or psychological symptom: with agitation Qualified Code(s): F03.911 - Unspecified dementia, unspecified severity, with agitation Plan As above Thank you for allowing us to participate in the ongoing care of this patient. Please page with any additional concerns. Wil Kolb DNP Director, Palliative Medicine History of Present Illness Reason for Consultation: dementia, declining Attending Physician: Abhishek Lira MD History of Present Illness 89yo female from [facility] with adv dementia, progressive decline, progressive aspiration no signif improvement daughter at bedside, tells me she [facility] family for hosp[facility] pt is not responsive, intermitt cough and brow furrowing noted Allergies Allergy/AdvReac Type Severity Reaction Status Date / Time Sulfa (Sulfonamide Allergy Intermediate Rash Verified 04/29/24 13:02 Antibiotics) adhesive Allergy Mild rash Verified 04/29/24 13:02 enalaprilat [From Vasotec] Allergy Unknown Unknown Verified 04/29/24 13:02 atorvastatin AdvReac Severe Unconscious Verified 04/29/24 13:02 Home Medications Medication Instructions Recorded Confirmed Type acetaminophen 500 mg tablet 1,000 mg PO HS 02/03/24 05/01/24 History (Tylenol Extra Strength) amlodipine 5 mg tablet 5 mg PO BID 02/03/24 05/01/24 History carvedilol 6.25 mg tablet 6.25 mg PO BID 02/03/24 05/01/24 History cholecalciferol (vitamin D3) 50 50 mcg PO QAM 02/03/24 05/01/24 History mcg (2,000 unit) capsule (Vitamin D3) cyclosporine 0.05 % eye drops in a 1 drp OPB BID 02/03/24 05/01/24 History dropperette famotidine 20 mg tablet 20 mg PO BID 02/03/24 05/01/24 History fluorometholone 0.1 % eye 1 drp OPB QID 02/03/24 05/01/24 History drops,suspension levothyroxine 125 mcg tablet 125 mcg PO QAM 02/03/24 05/01/24 History vit C 250 mg-vit E 90 mg-zinc 40 1 tab PO BID 02/03/24 05/01/24 History mg-copper 1 ae-zqsdrs-jjfbun capsule (PreserVision AREDS-2) acetaminophen 325 mg tablet 650 mg PO Q6 PRN Fever Or Pain 02/28/24 05/01/24 History multivitamin 1 tab PO QAM 02/28/24 05/01/24 History omega 1-skb-nmq-fish oil 1,200 mg 1 cap PO QAM 02/28/24 05/01/24 History (144 mg-216 mg) capsule (Fish Oil) rosuvastatin 20 mg tablet 20 mg PO HS 02/28/24 05/01/24 History buspirone 10 mg tablet 5 mg PO QID 03/06/24 05/01/24 History sodium chloride 1,000 mg soluble 1,000 mg PO DAILY 03/06/24 05/01/24 History tablet peg 400 0.4 %-propylene glycol 1 drp OPB QID 03/11/24 05/01/24 History (PF) 0.3 % eye drops (Systane Ultra (PF)) aspirin 81 mg tablet,delayed 81 mg PO QAM 60 days #60 tabs 03/21/24 05/01/24 Rx release bisacodyl 10 mg rectal suppository 10 mg ND DAILY PRN Constipation 03/25/24 05/01/24 History (Dulcolax (bisacodyl)) docusate sodium 100 mg capsule 100 mg PO DAILY PRN Constipation 03/25/24 05/01/24 History (Colace) ticagrelor 90 mg tablet (Brilinta) 90 mg PO BID on DAPT - Aspirin 03/26/24 05/01/24 History 81mg + Ticagrelor 90mg BID duloxetine 30 mg capsule,delayed 30 mg PO DAILY 05/01/24 05/01/24 History release sprinkle risperidone 0.25 mg tablet 0.25 mg PO HS 05/01/24 05/01/24 History rosuvastatin 20 mg tablet 20 mg PO HS 05/01/24 05/01/24 History sennosides 8.6 mg tablet 8.6 mg PO HS 05/01/24 05/01/24 History Patient History Medical History MGUS (monoclonal gammopathy of unknown significance) Hx: UTI (urinary tract infection) Gutierrez catheter in place Right carotid artery occlusion Recurrent falls Anxiety Hx of colonic polyps Ischemic stroke (02/2024) Closed pelvic fracture (~03/11/24) small nondisplaced right sacral ala fracture- due to fall Closed fracture of neck of left femur (~03/11/24) displaced subcapital left femoral neck fracture -due to fall - surgery 03/12/24 Localized edema Localized enlarged lymph nodes Nonrheumatic aortic (valve) stenosis Hypertensive chronic kidney disease with stage 1 through stage 4 chronic kidney disease, or unspecified chronic kidney disease Urinary retention Delirium due to known physiological condition Transient ischemic attack (TIA) Anemia Hypertension Hypothyroidism Sjogren's syndrome Hypertensive urgency Constipation Dermatitis Neuropathy Cervical muscle strain Peripheral edema Insomnia Sensorineural hearing loss (SNHL) of both ears Memory changes Aortic valve sclerosis Cervical lymphadenopathy Chronic hoarseness Mixed hyperlipidemia Osteoporosis Unsteady gait Vocal cord paralysis Trigeminal neuralgia right Spinal stenosis Osteoarthritis IBS (irritable bowel syndrome) GERD (gastroesophageal reflux disease) Macular degeneration Claustrophobia Cardiac murmur Hyperlipidemia Surgical History History of transurethral resection of bladder tumor (TURBT) (03/06/24) Hx of colonoscopy with polypectomy Hx of arthroscopy of shoulder 2019, left History of lumpectomy History of hysterectomy History of bladder surgery BLADDER TACK History of total abdominal hysterectomy and bilateral salpingo-oophorectomy History of throat surgery THURNWALDT CYST BENIGN History of tooth extraction History of tonsillectomy History of adenoidectomy Family History Son Family history of diabetes mellitus Father Cancer Sister Cancer Breast cancer Heart disease H/O heart artery stent Mother Myocardial infarction Grandmother AAA (abdominal aortic aneurysm) Myocardial infarction Denies family history of Ovarian cancer Prostate cancer Colorectal cancer Social History Smoking Status: Unknown if ever smoked Preferred Language: Danish Communication Ability: Effective Communication Ability Comment: unk Visual Impairment: Limited Hearing Ability: Use of Hearing Aid Paradichlorobenzene Tender Required: No Beliefs That Will Affect Care: Yazidi marital status: / Current Living Situation: Personal Care Facility Current Living Situation Comment: [facility] current occupational status: retired How many Children do You have: 3 Feels Safe at Home: Yes Childhood Exposure to Second-Hand Smoke: No Diet: Soft caffeine: Yes during the past year weight has: remained stable Dental Care, Regularly: No Physical Activity Frequency: Does not Exercise Seatbelt Use: always Sunscreen Use: Yes Assistive Devices: Walker and Wheelchair Review of Systems Review of Systems: Unobtainable due to cognitive status Physical Exam Constitutional: + cachectic, + frail appearing and + let hargic Neck: trachea midline Respiratory: + uses accessory muscles, + cough and sy mmetric chest movement Cardiovascular: Rate/Rhythm: + irregularly irregular Gastrointestinal (Abdomen): scaphoid Musculoskeletal: gen weakness Skin: pallor Neurologic: lethargic, brow furrowed, occ moaning Results & Data Vital Signs (Past 12 Hours) Vital Signs Temp Pulse Pulse Resp BP BP Pulse Ox 05/02/24 11:39 37.1 C 93 H 20 132/71 97 05/02/24 09:00 05/02/24 07:20 36.2 C L 112 H 20 147/83 H 96 05/02/24 03:18 36.6 C 104 H 19 151/83 H 99 05/02/24 02:50 36.6 C 116 H 24 155/89 H 98 O2 Del Method 05/02/24 11:39 Room Air 05/02/24 09:00 Room Air 05/02/24 07:20 Room Air 05/02/24 03:18 Room Air 05/02/24 02:50 Laboratory Results data reviewed Diagnostic Findings data reviewed PG Care Time/CCT Total # of Minutes Spent Total Time Spent with Patient: Total time spent is greater than 50% in coordination of care (as documented) at patient's floor/unit and/or counseling patient: I spent 80 minutes overall addressing this case: 15 min in medical data review/discussion with referring provider(s) and/or preparation for the visit 10 min in direct interaction with the patient/exam 25 min in Advance Care Planning/Goals of Care discussions as detailed above in note (must be >16min) 15 min in subsequent review and synthesis of assessment and plan 15 min communicating with other providers regarding the patient's case: Advanced Care Planning 19523 Advanced Care Planning 30 [place] [address] IN/OBS CONSULT LVL 4,60M (25 - SIGNIFICANT, SEPARATELY IDENTIFIABLE ) Patient Type New Medical Decision Making High Complexity Diagnoses General weakness R53.1 Discussion about advance care planning held with family member Z71.0 Palliative care by specialist Z51.5 Encounter for hospice care discussion Z71.89 Need for comfort care Dementia with agitation, unspecified dementia severity, unspecified dementia type F03.911 Dementia type: unspecified type Dementia severity: unspecified severity Dementia behavioral or psychological symptom: with agitation Additional Codes Advanced Care Planning - 96618 Advanced Care Planning 30 Min: 46375 Advanced Care Planning 30 Min ([id number])
[2024-05-02] MEDS: GLYCOPYRROLATE 0.2 MG/ML VIAL IV PRN (15:15)
[2024-05-02] MEDS ORDERED: AZITHROMYCIN 500 MG in DEXTROSE 5% 250 ML IV SCH (18:30)
[2024-05-03] MEDS: PANTOprazole 40 MG/10 ML SYR IV SCH (07:58)
--- NOTE | 2024-05-03 09:40 | Hospitalist Progress Note ---
Date of Service May 03, 2024 Assessment & Plan (1) Failure to thrive in adult: Plan: Declining functional status as a result of worsening dementia, chronic transfusion dependent anemia, cva Patient was brought from [facility] family is now leaning towards comfort measures only (2) Need for comfort care: Plan: Pt with multiple recent medical issues family after discussion will proceed to comfort care measures, will work with case management family may want to have return to [facility] stopping antibiotics (3) Anemia: Plan: Patient sent in from [facility] on 05/01 for Hemoglobin 5.2 on arrival Hx of blood transfusion 3 weeks ago in the setting of multiple surgeries (hip replacement, carotid artery stent, urethral cyst removal) 2U PRBC-> with overcorrection to 9.6 with 2 units last echocardiogram on 04/02 revealed LVEF at 60 to 65% Recent vitamin B12 and folate levels in January 2024 were both high Fecal occult blood ordered, pending Iron panel, iron and tibc low, ferritin high Protonix 40 mg IV daily (4) PATRICIA (acute kidney injury): Plan: h/o ckd 3 slight improvement with transfusion (5) Leukocytosis: Plan: Leukocytosis at 15.72 with a neutrophil predominance lower blood pressure concern for sepsis poa from pneumonia RLL pneumonia seen on imaging, concern for gram negative or aspiration pneumonia Blood cultures drawn Procalcitonin WNL antibiotics stopped after palliative eval (6) Dementia: Plan: Poor historian at baseline Daughter is currently in palliative/hospice care discussions Palliative care consult appreciated (7) History of stroke: Plan: Recent ischemic stroke in March 2024 Brain MRI 03/17/24 revealed "multiple small to tiny foci of acute ischemic injuries within the right temporal, occipital, parietal and frontal lobes concerning for embolic phenomena." hold aspirin and Plavix given aspiration risk (8) Declining functional status: Plan discharge back to [facility] on comfort care only and possibly hospice DNR/DNI/TALKBACK HOST Thickened liquid diet (with aspiration precautions and elevated HOB) Admission and Anticipated Discharge Date Admission Date: May 01, 2024 Subjective patient seen and examined, awake, but lethargic, non verbal Review of Systems Review of Systems: unable o obtain Physical Exam Physical Exam: The patient is awake, frail HEENT--PERRL, EOMI, mucous membranes and oropharynx mildly dry Neck--supple. No JVD. No bruits. Thyroid normal, trachea midline, no adenopathy. Heart--normal S1 and S2. No murmurs, rubs or gallops. Lungs--clear bilaterally, no respiratory distress, no accessory muscle use. Abdomen--normal bowel sounds and soft. Extremities--no cyanosis or clubbing. No edema. Dermatologic--normal skin turgor, normal color, no abnormal lymph nodes, no rash. Neurologic--awake, non verbal Rheumatologic--normal range of motion. PG Care Time/CCT Total # of Minutes Spent Total Time Spent with Patient: Total time spent is greater than 50% in coordination of care (as documented) at patient's floor/unit and/or counseling patient: Coding Level of Care Code 65681 SUB INP/OBS CARE 2/35MIN Diagnoses Failure to thrive in adult R62.7 Need for comfort care Anemia D64.9 Anemia type: unspecified type PATRICIA (acute kidney injury) N17.9 Leukocytosis D72.829 Dementia with agitation, unspecified dementia severity, unspecified dementia type F03.911 Dementia type: unspecified type Dementia severity: unspecified severity Dementia behavioral or psychological symptom: with agitation History of stroke Z86.73 Declining functional status R53.81 Time Spent (min) 35 (3) Anemia Anemia type: unspecified type Qualified Code(s): D64.9 - Anemia, unspecified (6) Dementia Dementia type: unspecified type Dementia severity: unspecified severity Dementia behavioral or psychological symptom: with agitation Qualified Code(s): F03.911 - Unspecified dementia, unspecified severity, with agitation
[2024-05-03] MEDS: INFLUENZA VACC TS2024-25(65y+)/PF (IIV3) 0.5mL Syr IM ONE (13:53)
[2024-05-04] MEDS: HYDROmorphone INJ 0.5 MG/0.5 ML SYR IV PRN (01:24)
[2024-05-04 07:25] VITALS: TEMP 100.9
[2024-05-04] MEDS: ACETAMINOPHEN 10MG/ML Custom 700 MG in EMPTY BAG 0 ML IV STA (08:51)
--- NOTE | 2024-05-04 11:13 | Discharge Summary ---
Date of Service May 04, 2024 Admission HPI Per Admitting Provider Kathy is an 89-year-old female with PMH of MGUS, anxiety, recurrent falls, GERD, dysphagia, dementia, orthostatic hypotension, UTI, CVA/TIA, and FTT. She presented via EMS on 05/01 from [facility] after she had blood work drawn that showed hemoglobin trending downwards. Patient is a poor historian at baseline due to her underlying dementia. Patient's daughter (Sridevi) is at bedside and provides history. She does report that she came in for low hemoglobin levels. History of 1 recent blood transfusion approximately 3 weeks ago. This was in the setting of multiple surgeries (she had a hip replaced and had a cyst on her ureter removed), as well as having a carotid artery stent placed in her right ICA. During this time, she also had multiple UTIs. No history of GI bleeds to her knowledge. The patient is unsure if she has had any melena or sybil blood in her urine/stool. Patient's daughter is unsure if she has ever had a colonoscopy in the past. No sick contacts. Patient does have a chronic cough. Patient is mildly hypotensive at 96/52 at time of admission; vitals otherwise stable. ED course: NSS 1500 mL IV Rocephin 2000 mg IV Azithromycin 500 mg IV Unable to obtain ROS. Admission Exam (Per Admitting) Constitutional .The patient is awake, frail HEENT--PERRL, EOMI, mucous membranes and oropharynx mildly dry Neck--supple. No JVD. No bruits. Thyroid normal, trachea midline, no adenopathy. Heart--normal S1 and S2. No murmurs, rubs or gallops. Lungs--clear bilaterally, no respiratory distress, no accessory muscle use. Abdomen--normal bowel sounds and soft. Extremities--no cyanosis or clubbing. No edema. Dermatologic--normal skin turgor, normal color, no abnormal lymph nodes, no rash. Neurologic--cranial nerves II through XII grossly intact. Rheumatologic--normal range of motion. Psychiatric--normal affect. Discharge Data Consultations 05/01/24 16:48 ED Decision to Admit Stat 05/01/24 17:38 Consult Palliative Care Routine Hospital Course (1) Failure to thrive in adult: Declining functional status as a result of worsening dementia, chronic transfusion dependent anemia, cva Patient was brought from [facility] family is now leaning towards comfort measures only (2) Need for comfort care: Pt with multiple recent medical issues family after discussion will proceed to comfort care measures, will work with case management family may want to have return to [facility] stopping antibiotics (3) Anemia: Patient sent in from [facility] on 05/01 for Hemoglobin 5.2 on arrival Hx of blood transfusion 3 weeks ago in the setting of multiple surgeries (hip replacement, carotid artery stent, urethral cyst removal) 2U PRBC-> with overcorrection to 9.6 with 2 units last echocardiogram on 04/02 revealed LVEF at 60 to 65% Recent vitamin B12 and folate levels in January 2024 were both high Fecal occult blood ordered, pending Iron panel, iron and tibc low, ferritin high Protonix 40 mg IV daily (4) PATRICIA (acute kidney injury): h/o ckd 3 slight improvement with transfusion (5) Leukocytosis: Leukocytosis at 15.72 with a neutrophil predominance lower blood pressure concern for sepsis poa from pneumonia RLL pneumonia seen on imaging, concern for gram negative or aspiration pneumonia Blood cultures drawn Procalcitonin WNL antibiotics stopped after palliative eval (6) Dementia: Poor historian at baseline Daughter is currently in palliative/hospice care discussions Palliative care consult appreciated (7) History of stroke: Recent ischemic stroke in March 2024 Brain MRI 03/17/24 revealed "multiple small to tiny foci of acute ischemic injuries within the right temporal, occipital, parietal and frontal lobes concerning for embolic phenomena." hold aspirin and Plavix given aspiration risk (8) Declining functional status: Plan discharge back to [facility] on comfort care only and possibly hospice DNR/DNI/EXTENDED INSURANCE CLERK Thickened liquid diet (with aspiration precautions and elevated HOB) Coding Level of Care Code 01874 INP/OBS DISCH >30 MIN Diagnoses Failure to thrive in adult R62.7 Need for comfort care Anemia D64.9 Anemia type: unspecified type PATRICIA (acute kidney injury) N17.9 Leukocytosis D72.829 Dementia with agitation, unspecified dementia severity, unspecified dementia type F03.911 Dementia type: unspecified type Dementia severity: unspecified severity Dementia behavioral or psychological symptom: with agitation History of stroke Z86.73 Declining functional status R53.81 Time Spent (min) 35
--- NOTE | 2024-05-06 12:12 | Coding Query ---
To promote full compliance with coding requirements relating to patient care, provider participation is requested in all cases of information coder uncertainty. Please assist us with the question(s) below: 05/02 pn Leukocytosis: Plan: Leukocytosis at 15.72 with a neutrophil predominance lower blood pressure concern for sepsis poa from pneumonia RLL pneumonia seen on imaging, concern for gram negative or aspiration pneumonia DS Leukocytosis: Leukocytosis at 15.72 with a neutrophil predominance lower blood pressure concern for sepsis poa from pneumonia RLL pneumonia seen on imaging, concern for gram negative or aspiration pneumonia Blood cultures drawn Procalcitonin WNL antibiotics stopped after palliative eval Coding Question(s): The diagnosis(es) below was documented in the (information coder fill out source document ie H&P, progress notes, etc.) .Please indicate if it is still a possible diagnosis or ruled out. Physician's Response(s): SEPSIS ( ) Ruled in/can't be ruled out ( x ) Ruled out ( ) Other (please specify) PNEUMONIA ( x ) Ruled in/can't be ruled out ( ) Ruled out ( ) Other (please specify) Erum Matthews, LAMINP, [facility] INPATIENT CASTINGS TRIMMER NORA
== END 2024-05-04 14:15 | DRG 811 ==
LOC: ED 15:18 → SUATTDRO 18:11 → EDINP 18:11 → 2E 22:36 → 3E 05-03 18:29